=== PATIENT | female | born 1950 | race Caucasian/White ===

== ENCOUNTER 2020-06-13 11:47 | Outpatient (REF) | payer BC, SELFPAY ==
[2020-06-13 13:42] LABS: Basophils Percent Auto 0.2 % (0-2); Eosinophils Absolute Auto 0.1 X10*3/uL (0.0-0.4); Eosinophils Percent Auto 1.7 % (0-4); Hematocrit 31.2 % (37-47); Hemoglobin 10.2 g/dl (12.0-16.0); Imm Gran Abs Auto 0.01 X10*3/uL (0.00-0.03); Imm Gran Pct Auto 0.2 % (0.0-0.4); Lymphocytes Absolute Auto 1.1 X10*3/uL (1.2-4.9); Lymphocytes Percent Auto 22.1 % (20-40); MANUAL DIFF FLAG NO; Mean Corpuscular HGB Conc 32.7 g/dl (31.0-35.0); Mean Corpuscular Hemoglobin 32.7 pg (27.0-33.0); Mean Platelet Volume 9.7 fL (9.4-12.3); Monocytes Absolute Auto 0.4 X10*3/uL (0.1-1.2); Monocytes Percent Auto 8.3 % (2-11); Neutrophils Absolute Auto 3.5 X10*3/uL (2.0-8.3); Neutrophils Percent Auto 67.5 % (45-73); Platelet Count 261 X10*3/uL (160-400); Red Blood Count 3.12 X10*6/uL (4.20-5.50); White Blood Count 5.2 X10*3/uL (4.8-10.8)
[2020-06-13 14:51] LABS: Alanine Aminotransferase 8 U/L (0-31); Albumin Level 4.3 g/dL (3.5-5.0); Alkaline Phosphatase 100 U/L (39-117); Anion Gap 16 (12-20); Aspartate Amino Transferase 15 U/L (5-31); Bilirubin Total 0.4 mg/dL (0.0-1.0); Blood Urea Nitrogen 33 mg/dL (9-16); Calcium 9.5 mg/dL (8.4-10.2); Carbon Dioxide 28 mmol/L (22-29); Chloride 100 mmol/L (96-108); Estimated Glomerular Filt Rate 37; Glucose Random 103 mg/dL (60-115); Potassium 4.6 mmol/l (3.3-5.1); Sodium 139 mmol/L (135-145)
== END 2020-06-13 11:48 | disposition home or self-care (01) ==
LOC: HO.LAB 11:47
PROVIDERS: PCP Family Medicine; Visit Provider Family Medicine
DX: R53.83 Other fatigue (principal)
CPT/HCPCS: 36415; 80053; 85025

== ENCOUNTER 2020-07-04 10:10 | Outpatient (REF) | payer BC, SELFPAY | END 2020-07-04 10:11 | disposition home or self-care (01) | LOC: HO.LAB 10:10 | PROVIDERS: Visit Provider Nurse Practitioner Family | DX: Z13.89 Encounter for screening for other disorder (principal) ==

== ENCOUNTER 2020-07-04 11:44 | Outpatient (REF) | payer SELFPAY | END 2020-07-04 11:45 | disposition home or self-care (01) | LOC: HO.LNP 11:44 | PROVIDERS: Visit Provider Nurse Practitioner Family | DX: S81.802A Unspecified open wound, left lower leg, initial encounter (principal) | CPT/HCPCS: 87071; 87205 ==

== ENCOUNTER 2020-07-07 09:08 | Outpatient (RCR) | payer BC, SELFPAY | END 2020-09-06 12:09 | disposition home or self-care (01) | LOC: HO.WCC 09:08 | PROVIDERS: PCP Family Medicine; Visit Provider Physician Assistant | DX: Z09 Encounter for follow-up examination after completed treatment for conditions other than malignant neoplasm (principal); I87.2 Venous insufficiency (chronic) (peripheral); R60.0 Localized edema; I12.9 Hypertensive chronic kidney disease with stage 1 through stage 4 chronic kidney disease, or unspecified chronic kidney disease; N18.30 Chronic kidney disease, stage 3 unspecified; Z87.891 Personal history of nicotine dependence; Z91.81 History of falling | CPT/HCPCS: 11042; 99212 ==

== ENCOUNTER 2020-09-19 13:33 | Outpatient (REF) | payer BC, SELFPAY | END 2020-09-19 13:34 | disposition home or self-care (01) | LOC: HO.LAB 13:33 | PROVIDERS: Visit Provider Internal Medicine | DX: Z20.822 Contact with and (suspected) exposure to COVID-19 (principal) | CPT/HCPCS: 36415; C9803; U0003 ==

== ENCOUNTER 2020-11-30 13:39 | Inpatient (IN) | payer BC, SELFPAY ==
--- NOTE | ~2020-11-30 | CT_ITS ---
EXAMINATION: CT ANGIOGRAM OF THE CHEST WITH AND WITHOUT CONTRAST (CT PULMONARY ANGIOGRAM FOR PE) EXAMINATION: CTA CHEST PE STUDY CLINICAL INFORMATION: sob, cp, elevatedd dimer, eval for pe COMPARISON: No pertinent prior studies are available for comparison. TECHNIQUE: Prior to contrast administration, noncontrast localization images were obtained. After the administration of 70 mL of Omnipaque 350 IV contrast, contiguous thin slice helical images were obtained through the thorax. Reformatted MIP images in the coronal and sagittal planes were obtained at the acquisition workstation. This CT examination was performed using dose optimization techniques as appropriate, variously including the following: *Automated exposure control *Adjustment of mA and/or kV according to patient size (this includes techniques or standardized protocols for targeted exams where dose is matched to indication/reason for exam; i.e. extremities or head) *Use of iterative reconstruction technique DLP: 487 mGy-cm. FINDINGS: The bolus timing on this study was acceptable for visualization of the pulmonary arterial tree. There are no intraluminal pulmonary arterial filling defects present to suggest pulmonary embolism. Minimal bibasilar dependent atelectasis.. No abnormal pulmonary nodules or masses are appreciated. No significant hilar or mediastinal adenopathy. There is no evidence of pleural effusion or pneumothorax. The heart is normal in size. No evidence of ventricular septal bowing or right heart strain. Great vessels are normal. Moderate-sized hiatal hernia. There is no pericardial effusion or pericardial thickening. Limited evaluation of the upper abdominal viscera is unremarkable. CT/CT angio chest PE protocol IMPRESSION: No evidence for pulmonary emboli. Mild basilar atelectasis VTE: Negative
--- NOTE | ~2020-11-30 | XR_ITS ---
EXAMINATION: CHEST 2 VIEWS CLINICAL INFORMATION: cp . COMPARISON: 05/08/2020. TECHNIQUE: PA and lateral views of the chest obtained. FINDINGS: The lungs are mild hypoexpanded with minimal basilar scarring or atelectasis, similar to the prior study. No focal infiltrate, effusion, edema, or pneumothorax. Cardiac and mediastinal silhouettes are within normal limits for size. Small hiatal hernia is present. No acute bony abnormality seen with mild degenerative changes in the shoulders and spine XR/XR chest 2V IMPRESSION: No evidence of acute disease compared with 05/08/2020
--- NOTE | 2020-11-30 09:03 | ECG_ITS ---
Test Reason : CP Blood Pressure : / mmHG Vent. Rate : 072 BPM Atrial Rate : 072 BPM P-R Int : 166 ms QRS Dur : 100 ms QT Int : 424 ms P-R-T Axes : 037 -05 010 degrees QTc Int : 464 ms Normal sinus rhythm Normal ECG When compared with ECG of 30-NOV-2020 17:54, No significant change was found Referred By: Stephen Dodson Electronically Signed By:BREA NGUYEN
[2020-11-30 13:42] VITALS: BP 140/82; PULSE 88; RESP 16; TEMP 36.9; O2SAT 98; BMI 36.0
--- NOTE | 2020-11-30 13:53 | ECG_ITS ---
Test Reason : CHEST PAIN Blood Pressure : / mmHG Vent. Rate : 083 BPM Atrial Rate : 083 BPM P-R Int : 160 ms QRS Dur : 094 ms QT Int : 382 ms P-R-T Axes : 000 193 177 degrees QTc Int : 448 ms Normal sinus rhythm Right superior axis deviation Pulmonary disease pattern Nonspecific ST and T wave abnormality Abnormal ECG No previous ECGs available Referred By: Stephen Dodson Electronically Signed By:BREA NGUYEN
[2020-11-30 14:54] LABS: MANUAL DIFF FLAG NO
[2020-11-30 14:55] LABS: Basophils Percent Auto 0.4 % (0-2); Eosinophils Absolute Auto 0.1 X10*3/uL (0.0-0.4); Eosinophils Percent Auto 0.7 % (0-4); Hematocrit 29.5 % (37-47); Hemoglobin 9.6 g/dl (12.0-16.0); Imm Gran Abs Auto 0.03 X10*3/uL (0.00-0.03); Imm Gran Pct Auto 0.4 % (0.0-0.4); Lymphocytes Absolute Auto 1.1 X10*3/uL (1.2-4.9); Lymphocytes Percent Auto 16.6 % (20-40); Mean Corpuscular HGB Conc 32.5 g/dl (31.0-35.0); Mean Corpuscular Hemoglobin 28.7 pg (27.0-33.0); Mean Corpuscular Volume 88.3 fL (80-98); Mean Platelet Volume 9.7 fL (9.4-12.3); Monocytes Absolute Auto 0.9 X10*3/uL (0.1-1.2); Monocytes Percent Auto 13.3 % (2-11); Neutrophils Absolute Auto 4.6 X10*3/uL (2.0-8.3); Neutrophils Percent Auto 68.6 % (45-73); Platelet Count 199 X10*3/uL (160-400); Red Blood Count 3.34 X10*6/uL (4.20-5.50); Red Cell Distribution Width 15.5 % (11.0-16.0); White Blood Count 6.7 X10*3/uL (4.8-10.8)
[2020-11-30 15:09] LABS: INTERNATIONAL NORM RATIO 1.2 (0.9-1.1)
[2020-11-30 15:22] LABS: Anion Gap 12 (12-20); Blood Urea Nitrogen 31 mg/dL (9-16); Calcium 6.9 mg/dL (8.4-10.2); Carbon Dioxide 36 mmol/L (22-29); Chloride 99 mmol/L (96-108); Creatinine Clr Calc Pharmacy 54.2; Estimated Glomerular Filt Rate 49; Glucose Random 149 mg/dL (60-115); Potassium 3.4 mmol/L (3.3-5.1); Sodium 144 mmol/L (135-145)
[2020-11-30 15:25] LABS: B Type Natriuretic Peptide 257 pg/mL (<100); Troponin-I High Sensitivity 5.9 ng/L (<3.5-17.0)
--- NOTE | 2020-11-30 17:32 | ED_ITS ---
HPI - Chest Pain General Chief Complaint: Chest Pain Stated Complaint: chest pain Time Seen by Provider: 11/30/20 14:20 Source: patient Mode of arrival: ambulatory Limitations: no limitations History of Present Illness HPI narrative: 70-year-old female with a past medical history of arthritis, asthma, CKD, COPD, gout, high cholesterol, hypertension here with complaints chest pain which began at 04:00 this morning. Patient tells me that she has had lower extremity swelling which has increased over the last few days. She took an extra dose of 40 mg of Lasix on Friday and has lost 9 lb since then. She feels like her swelling has improved. She has had some dyspnea with exertion and a dry cough which she tells me is chronic. Denies any fevers or chills. This morning at 04:00 she woke up with some chest pressure which is sharp and is worsened with deep breathing, movement. No history of blood clots. No family history. No estrogen use. MD complaint: chest pain and chest heaviness Related Data Home Medications Medication Instructions Recorded Confirmed acetaminophen 500 mg tablet 1,000 mg PO Q8H 07/04/20 aspirin 81 mg tablet,delayed 81 mg PO DAILY 07/04/20 release atorvastatin 40 mg tablet mg PO 07/04/20 carvedilol 25 mg tablet 25 mg PO BID 07/04/20 carvedilol phosphate 20 mg 0 mg PO 07/04/20 capsule,[id number] multiphase clonidine HCl 0.1 mg tablet mg PO 07/04/20 ergocalciferol (vitamin D2) 1,250 PO 07/04/20 mcg (50,000 unit) capsule fluticasone 250 mcg-salmeterol 50 INHALATION 07/04/20 mcg/dose blistr powdr for inhalation furosemide 20 mg tablet mg PO 07/04/20 gabapentin 300 mg capsule mg PO 07/04/20 gabapentin 600 mg tablet 600 mg PO BEDTIME 07/04/20 lorazepam 0.5 mg tablet 0.5 mg PO BID PRN 07/04/20 losartan 50 mg tablet 50 mg PO DAILY 07/04/20 pantoprazole 40 mg tablet,delayed 40 mg PO DAILY 07/04/20 release sennosides 8.6 mg-docusate sodium 2 tab PO BEDTIME 07/04/20 50 mg tablet sulfamethoxazole 800 1 tab PO BID 07/04/20 mg-trimethoprim 160 mg tablet Previous Rx's Medication Instructions Recorded doxycycline hyclate 100 mg capsule 100 mg PO BID 10 Days #20 cap 07/04/20 amoxicillin 500 mg-potassium 1 tab PO BID 10 Days #20 tab 09/27/20 clavulanate 125 mg tablet Allergies Allergy/AdvReac Type Severity Reaction Status Date / Time levofloxacin [From Levaquin] Allergy Unknown Verified 11/30/20 13:53 paroxetine [From Paxil] Allergy Unknown Verified 11/30/20 13:53 prochlorperazine Allergy Unknown Verified 11/30/20 13:53 [From Compazine] shrimp Allergy Anaphylaxis Verified 11/30/20 13:53 Review of Systems Review of Systems: Yes all other systems are reviewed and are negative Constitutional: Constitutional: Reports no additional constitutional complaints, Denies body ache(s), Denies chills, Denies fever(s), Denies headache(s) and Denies weakness Eyes: Eyes: Reports no additional eye complaints and Denies change in vision ENT: Reports system reviewed and no additional complaints, except as documented, Denies dizziness, Denies headache(s), Denies nasal congestion, Denies nasal discharge and Denies neck pain Cardiovascular: Cardiovascular: Reports no additional cardiovascular complaints, Reports chest pain, Reports leg edema and Denies dyspnea Respiratory: Respiratory: Reports no additional respiratory complaints, Denies cough and Denies dyspnea Gastrointestinal: Gastrointestinal: Reports no additional gastrointestinal complaints, Denies abdominal pain, Denies diarrhea, Denies nausea and Denies vomiting Genitourinary: Genitourinary: Reports no additional female genitourinary complaints and Denies urinary incontinence Musculoskeletal: Musculoskeletal: Reports no additional musculoskeletal complaints, Denies back pain, Denies arthralgias, Denies joint swelling, Denies neck pain, Denies numbness and Denies tingling Integumentary/Breasts: Skin/Breast: Reports system reviewed and no additional complaints, except as docu and Denies rash Neurologic: Reports system reviewed and no additional complaints, except as documented, Denies Abnormal speech present, Denies dizziness, Denies headache(s), Denies numbness, Denies tingling and Denies weakness PMFSH Past Medical History Attestation statement: The following information was validated with the patient. Source: old records reviewed and nursing notes reviewed Medical History Arthritis Asthma Chronic kidney disease (CKD) stage G3a/A1, moderately decreased glomerular filtration rate (GFR) between 45-59 mL/min/1.73 square meter and albuminuria creatinine ratio less than 30 mg/g COPD (chronic obstructive pulmonary disease) Gout Hypercholesteremia Hypertension Inguinal hernia Sliding hiatal hernia Social History Social History Advance Directives: No Advance Directives Information Provided: Yes Physical Exam Vital Signs: Vital Signs: Last Vital Signs Temp 98.4 F 11/30/20 13:42 Pulse 80 11/30/20 21:56 Resp 20 11/30/20 21:56 BP 150/96 H 11/30/20 21:56 Pulse Ox 97 11/30/20 21:56 Body Mass Index 36.0 Const: General: cooperative, healthy appearing, comfortable and no acute distress Orientation/consciousness: patient oriented x3 Limitations: no limitations HENMT: Head: Yes normal to inspection Ears: hearing grossly normal bilaterally General nose exam: Normal external nose present Face and sinu s: Yes normal facial exam Mouth: Normal oral and palatal mucosa present Throat: Yes posterior oropharynx normal Eyes: General: appearance normal, both eyes and all related structures Pupils: Equal, round and reactive pupils present Neck: Neck: Yes normal visual inspection Chest: Chest palpation & inspection: normal inspection of the chest Resp: Effort & Inspection: normal respiratory effort Auscultation: clear to auscultation bilaterally Cardio: Rate: regular rate Rhythm: regular rhythm Peripheral pulses: Peripheral pulses 2+ throughout GI: Inspection: Yes normal to inspection Palpation (GI): Soft to palpation and nontender Auscultation: normal bowel sounds Back/Spine/Pelvis: Thoracic/Lumbar Spine: thoracic and lumbar spine normal to inspection Skin: General skin exam: no rashes or lesions noted Neuro: General: patient oriented x3, no focal motor deficits and normal sensation to monofilament Cranial nerves: Yes Equal, round and reactive pupils present Cognition (Neuro): normal cognition Speech: No Abnormal speech present Gait exam (Neuro): Normal gait present Motor exam (neuro): 5/5 motor strength present throughout Extrem: General: Yes normal to inspection, Yes no calf tenderness and Yes edema (2+ pitting edema extending over the ankles, 2+ pulses) Course Course Course Narrative: 70-year-old female here with lower extremity swelling for the past few days with weight gain and chest pressure which is worsened with deep breathing which began at 04:00. Will need labs, EKG, chest x-ray. 1830-initial troponin 5.9. Plan for repeat 3 hour troponin. Magnesium less pedro n 0.6. Replacement ordered. Patient to be placed on a library monitor. D- dimer elevated 900. Plan for CTA to r/o PE 0-CTA negative. Second troponin delta. Patient tells me she may have this strained her chest wall during an over the head activity that she did earlier this week but she is unsure. Will plan for repeat magnesium level. 2300-repeat mg 1.1. Will plan for admission for continued IV replacement. Discussed with hospitalist Dr. Cueto who accepted admission. MDM - Chest Pain MDM Narrative Medical decision making narrative: ACS, PE, pneumonia Less likely PE with negative CTA. Less likely ACS with troponin x2 Delta and EKG cereal which shows no eczema changes Medical Records Data Attestation: I reviewed the patient's medical records. Lab Data Attestation: I reviewed the patient's lab results. Result diagrams: 11/30/20 14:48 11/30/20 14:48 Labs: Lab Results 11/30/20 11/30/20 11/30/20 Range/Units 14:48 14:48 14:48 WBC 6.7 (4.8-10.8) X10*3/uL RBC 3.34 L (4.20-5.50) X10*6/uL Hgb 9.6 L (12.0-16.0) g/dl Hct 29.5 L (37-47) % MCV 88.3 (80-98) fL MCH 28.7 (27.0-33.0) pg MCHC 32.5 (31.0-35.0) g/dl RDW 15.5 (11.0-16.0) % Plt Count 199 (160-400) X10*3/uL MPV 9.7 (9.4-12.3) fL Immature Gran % (Auto) 0.4 (0.0-0.4) % Neut % (Auto) 68.6 (45-73) % Lymph % (Auto) 16.6 L (20-40) % [place] % (Auto) 13.3 H (2-11) % Eos % (Auto) 0.7 (0-4) % Baso % (Auto) 0.4 (0-2) % Lymph # (Auto) 1.1 L (1.2-4.9) X10*3/uL [place] # (Auto) 0.9 (0.1-1.2) X10*3/uL Eos # (Auto) 0.1 (0.0-0.4) X10*3/uL Baso # (Auto) 0.0 (0.0-0.2) X10*3/uL Abs Immat Gran (auto) 0.03 (0.00-0.03) X10*3/uL Absolute Neuts (auto) 4.6 (2.0-8.3) X10*3/uL Absolute Nucleated RBC 0.000 (0.0-0.012) X10*3/uL Nucleated RBC % (auto) 0.0 (0.0-0.2) /100WBC PT 14.0 H (10.8-13.0) SEC INR 1.2 H (0.9-1.1) D-Dimer 893 NG/ML Sodium 144 (135-145) mmol/L Potassium 3.4 (3.3-5.1) mmol/L Chloride 99 (96-108) mmol/L Carbon Dioxide 36 H (22-29) mmol/L Anion Gap 12 (12-20) BUN 31 H (9-16) mg/dL Creatinine 1.11 (0.5-1.4) mg/dL Estim Creat Clear Calc 54.2 Estimated GFR 49 Random Glucose 149 H D (60-115) mg/dL Calcium 6.9 L D (8.4-10.2) mg/dL Magnesium < 0.6 L* (1.6-2.6) mg/dL Total Bilirubin 0.6 (0.0-1.0) mg/dL Direct Bilirubin 0.3 (0.0-0.5) mg/dL AST 29 D (5-31) U/L ALT 15 (0-31) U/L Alkaline Phosphatase 77 D (39-117) U/L Troponin I High Sens (<3.5-17.0) ng/L B-Natriuretic Peptide (<100) pg/mL Total Protein 6.0 L (6.5-8.0) g/dL Albumin 3.4 L D (3.5-5.0) g/dL Lipase 45 (8-78) U/L 11/30/20 11/30/20 11/30/20 Range/Units 14:48 18:30 22:01 WBC (4.8-10.8) X10*3/uL RBC (4.20-5.50) X10*6/uL Hgb (12.0-16.0) g/dl Hct (37-47) % MCV (80-98) fL MCH (27.0-33.0) pg MCHC (31.0-35.0) g/dl RDW (11.0-16.0) % Plt Count (160-400) X10*3/uL MPV (9.4-12.3) fL Immature Gran % (Auto) (0.0-0.4) % Neut % (Auto) (45-73) % Lymph % (Auto) (20-40) % [place] % (Auto) (2-11) % Eos % (Auto) (0-4) % Baso % (Auto) (0-2) % Lymph # (Auto) (1.2-4.9) X10*3/uL [place] # (Auto) (0.1-1.2) X10*3/uL Eos # (Auto) (0.0-0.4) X10*3/uL Baso # (Auto) (0.0-0.2) X10*3/uL Abs Immat Gran (auto) (0.00-0.03) X10*3/uL Absolute Neuts (auto) (2.0-8.3) X10*3/uL Absolute Nucleated RBC (0.0-0.012) X10*3/uL Nucleated RBC % (auto) (0.0-0.2) /100WBC PT (10.8-13.0) SEC INR (0.9-1.1) D-Dimer NG/ML Sodium (135-145) mmol/L Potassium (3.3-5.1) mmol/L Chloride (96-108) mmol/L Carbon Dioxide (22-29) mmol/L Anion Gap (12-20) BUN (9-16) mg/dL Creatinine (0.5-1.4) mg/dL Estim Creat Clear Calc Estimated GFR Random Glucose (60-115) mg/dL Calcium (8.4-10.2) mg/dL Magnesium 1.1 L* (1.6-2.6) mg/dL Total Bilirubin (0.0-1.0) mg/dL Direct Bilirubin (0.0-0.5) mg/dL AST (5-31) U/L ALT (0-31) U/L Alkaline Phosphatase (39-117) U/L Troponin I High Sens 5.9 5.9 (<3.5-17.0) ng/L B-Natriuretic Peptide 257 H (<100) pg/mL Total Protein (6.5-8.0) g/dL Albumin (3.5-5.0) g/dL Lipase (8-78) U/L Imaging Data Chest x-ray: Attestation: I personally reviewed and interpreted this imaging study as follows: Radiologist's impression: EXAMINATION: CHEST 2 VIEWS CLINICAL INFORMATION: cp . COMPARISON: 05/08/2020. TECHNIQUE: PA and lateral views of the chest obtained. FINDINGS: The lungs are mild hypoexpanded with minimal basilar scarring or atelectasis, similar to the prior study. No focal infiltrate, effusion, edema, or pneumothorax. Cardiac and mediastinal silhouettes are within normal limits for size. Small hiatal hernia is present. No acute bony abnormality seen with mild degenerative changes in the shoulders and spine XR/XR chest 2V IMPRESSION: No evidence of acute disease compared with 05/08/2020 CT scan - chest: Attestation: I personally reviewed and interpreted this imaging study as follows: Radiologist's impression: EXAMINATION: CT ANGIOGRAM OF THE CHEST WITH AND WITHOUT CONTRAST (CT PULMONARY ANGIOGRAM FOR PE) EXAMINATION: CTA CHEST PE STUDY CLINICAL INFORMATION: sob, cp, elevatedd dimer, eval for pe COMPARISON: No pertinent prior studies are available for comparison. TECHNIQUE: Prior to contrast administration, noncontrast localization images were obtained. After the administration of 70 mL of Omnipaque 350 IV contrast, contiguous thin slice helical images were obtained through the thorax. Reformatted MIP images in the coronal and sagittal planes were obtained at the acquisition workstation. This CT examination was performed using dose optimization techniques as appropriate, variously including the following: *Automated exposure control *Adjustment of mA and/or kV according to patient size (this includes techniques or standardized protocols for targeted exams where dose is matched to indication/reason for exam; i.e. extremities or head) *Use of iterative reconstruction technique DLP: 487 mGy-cm. FINDINGS: The bolus timing on this study was acceptable for visualization of the pulmonary arterial tree. There are no intraluminal pulmonary arterial filling defects present to suggest pulmonary embolism. Minimal bibasilar dependent atelectasis.. No abnormal pulmonary nodules or masses are appreciated. No significant hilar or mediastinal adenopathy. There is no evidence of pleural effusion or pneumothorax. The heart is normal in size. No evidence of ventricular septal bowing or right heart strain. Great vessels are normal. Moderate-sized hiatal hernia. There is no pericardial effusion or pericardial thickening. Limited evaluation of the upper abdominal viscera is unremarkable. CT/CT angio chest PE protocol IMPRESSION: No evidence for pulmonary emboli. Mild basilar atelectasis VTE: Negative ECG Data ECG #1: Attestation: I personally reviewed and interpreted this ECG as follows: ECG interpretation date: 11/30/20 ECG interpretation time: 17:54 Interpretation: Normal sinus rhythm with a rate of 80, normal MO, normal QRS, QTC 468. ECG #2: Attestation: I personally reviewed and interpreted this ECG as follows: ECG interpretation date: 11/30/20 ECG interpretation time: 14:33 Interpretation: Normal sinus rhythm with a rate of 82, normal MO, normal QRS, normal QTC nonspecific ST changes Discharge Plan Discharge Clinical Impression: Atypical chest pain, Hypomagnesemia, Elevated brain natriuretic peptide (BNP) level, Swelling of both lower extremities Patient Disposition: Admitted As Inpatient
[2020-11-30 17:34] LABS: D Dimer 893 NG/ML
--- NOTE | 2020-11-30 17:40 | ECG_ITS ---
Test Reason : REPEAT Blood Pressure : / mmHG Vent. Rate : 080 BPM Atrial Rate : 080 BPM P-R Int : 154 ms QRS Dur : 100 ms QT Int : 406 ms P-R-T Axes : 041 000 015 degrees QTc Int : 468 ms Normal sinus rhythm Normal ECG When compared with ECG of 30-NOV-2020 14:33, No significant change was found Referred By: Stephen Dodson Electronically Signed By:BREA NGUYEN
[2020-11-30 17:43] LABS: Alanine Aminotransferase 15 U/L (0-31); Albumin Level 3.4 g/dL (3.5-5.0); Alkaline Phosphatase 77 U/L (39-117); Aspartate Amino Transferase 29 U/L (5-31); Bilirubin Direct 0.3 mg/dL (0.0-0.5); Bilirubin Total 0.6 mg/dL (0.0-1.0); Lipase 45 U/L (8-78)
[2020-11-30 18:14] LABS: Magnesium < 0.6 mg/dL (1.6-2.6)
[2020-11-30] MEDS: Aspirin 81 MG TAB.CHEW 324 MG PO (18:37)
[2020-11-30] MEDS: Magnesium Sulfate/H2O 2 GM/50 ML PIGGYBACK IV (18:38)
[2020-11-30] MEDS: 0.9 % Sodium Chloride 500 ML 999 ML IV (18:38)
[2020-11-30 19:03] LABS: Troponin-I High Sensitivity 5.9 ng/L (<3.5-17.0)
[2020-11-30 19:42] VITALS: BP 145/61; PULSE 77; RESP 18; O2SAT 98
[2020-11-30 20:23] VITALS: BP 152/77; PULSE 79; RESP 20; O2SAT 100
[2020-11-30] MEDS: iohexoL 350 MG/ML 100 ML INFUS..BTL IV (20:24)
[2020-11-30 21:56] VITALS: BP 150/96; PULSE 80; RESP 20; O2SAT 97
[2020-11-30 22:43] LABS: Magnesium 1.1 mg/dL (1.6-2.6)
[2020-12-01] VITALS (8 sets, daily range): BP systolic 118–148; BP diastolic 63–94; PULSE 71–81; RESP 15–20; TEMP 35.5–37.2; O2SAT 20–98
[2020-12-01] MEDS: oxyCODONE HCl Immed Release 5 MG TABLET PO ×2 (00:10→08:31)
[2020-12-01] MEDS: Furosemide 40 MG/4 ML VIAL IVPUSH ×3 (00:11→17:40)
--- NOTE | 2020-12-01 01:39 | CA_ITS ---
Transthoracic Echocardiogram Patient (Last, First, Middle): Binta Vidal Elena F Gender: Female Date of : 1950 Age: 70 Procedure Date: 12/01/2020 Procedure Type: Transthoracic Echocardiogram [place] [facility] [place]: 162.56 cm Weight: 95.26 kg BSA: 2.00 m2 Heart Rate: bpm BP: 141 / 68 mmHg [facility]: DONY Referring MD: Leanne Cueto MD Symptoms: CHF Study Quality: Fair/contrast ECG Rhythm: Sinus Conclusions: - The left ventricular systolic function is normal. The visually estimated ejection fraction is between 55-60%. - Evidence suggests grade II (moderate) diastolic dysfunction. - No obvious valvular pathology seen on this study. Findings Procedure Information Contrast agent, definity, is being given per protocol without apparent complications. Left Ventricle Normal left ventricular cavity size. There is mildly increased left ventricular wall thickness. The left ventricular systolic function is normal. The visually estimated ejection fraction is between 55-60%. There is no evidence of regional wall motion abnormalities. Evidence suggests grade II (moderate) diastolic dysfunction. Right Ventricle Normal right ventricular cavity size and systolic function. Atria The left atrium is mildly dilated. The right atrium is normal in size. Aortic Valve There is a normal trileaflet aortic valve. There is no aortic valve stenosis. There is no aortic valve regurgitation. Mitral Valve The mitral valve appears normal. There is trace mitral valve regurgitation. There is no mitral valve stenosis. Pulmonic Valve The pulmonic valve was not well visualized. Tricuspid Valve Normal tricuspid valve structure. There is trace tricuspid valve regurgitation. The pulmonary artery systolic pressure is normal. Great Vessels The aortic annulus, sinuses of valsalva, and asc aorta are normal in size. Venous The inferior vena cava is normal in size and collapses greater than 50% with inspiration. Pericardium/Pleural There is no evidence of pericardial effusion. Prior Study Comparison No significant change compared to prior study dated: 07/15/2015. Recommendations, Care & Conclusions No obvious valvular pathology seen on this study. Measurements 2D Linear Measurements IVSd: 1.07 0.6-0.9/0.6-1.0 cm LVIDd: 4.02 3.9-5.3/4.2-5.9 cm LVIDd Index: 2.01 2.4-3.2/2.2-3.1 cm/m2 LVIDs: 2.81 2.0-3.6 cm LVPWd: 1.10 0.7-1.1 cm Ao Root: 3.30 2.1-3.5 cm LA Diam: 2.30 2.7-3.8/3.0-4.0 cm LAIDs Index: 1.15 1.5-2.3 cm/m2 LV Mass: 179.10 67-162/88-224 g LV Mass Index: 89.55 43-95/49-115 g/m2 LVOT Diam: 2.20 3.0+(-)1.3 cm 2D Systolic Function EF 4C: 61.20 >55% EF 2C: 59.00 >55% EF BiP: 59.50 >55% Mitral Valve MV Pk E: 1.31 MV PK A: 0.78 MV Decel Time: 243.00 E/A: 1.70 E'Lateral: 10.20 E'Medial: 6.38 E/E' Med: 20.50 E/E' Lat: 12.80 PHT: 71.00 MVA PHT: 3.10 Decel Jackson: 5.39 Aortic Valve AoV Pk Sergo: 1.81 AoV Mn Sergo: 1.31 AoV VTI: 0.43 AoV Pk Grad: 13.00 Aov Mn Grad: 8.00 PRASHANTH Cont.VTI: 2.47 LVOT LVOT Pk Sergo: 1.30 LVOT Mn Sergo: 0.86 LVOT VTI: 0.28 LVOT Pk Grad: 7.00 LVOT Mn Grad: 4.00 LVOT Diam: 2.20 LVOT Area: 3.80 Diastolic Function MV Pk E: 1.31 MV Pk A: 0.78 E/A: 1.70 E'Medial: 6.38 E/E' Med: 20.50 E' Laterial: 10.20 E/E' Lat: 12.80 Tricuspid Valve TR Pk Sergo: 2.52 TR Pk Grad: 25.00 RA Press: 3.00 RVSP: 28.00 Great Vessels Aorta Ao Root-2D: 3.30 2.0-3.7 cm Ao Asc: 3.70 2.1-3.4 cm Updated in Other Vendor System with Status of Final Roldan Cazares MD electronically signed on 12/01/2020 2:41:46 PM with status of Final
[2020-12-01] MEDS: Magnesium Sulfate/H2O 2 GM/50 ML PIGGYBACK IV (02:11)
[2020-12-01 03:08] LABS: COVID-19 Test Negative (Negative)
--- NOTE | 2020-12-01 05:12 | PM.IMHP ---
History of Present Illness Date of Service: 11/30/20 Chief Complaint: Chest pain This is a 62-year-old female with past medical history of asthma, CKD, HLD, HTN, who presents to the hospital with complaints of left-sided chest pain. Patient reports that it started at 4:00 a.m. the day of presentation, pain is a sharp, worse with deep inspiration, constant, reproducible, nonradiating, not associated with any palpitations, she also complains of shortness of breath on exertion, lower extremity edema for the past 3-4 days, denies any cough, no sputum production, no abdominal pain nausea or vomiting, no diarrhea constipation, no urinary symptoms. No headache or change in vision. Patient complains of orthopnea, and PND. On arrival to the ED hemodynamically stable with no No significant abnormal vitals Labs are significant for WBC count of 6.7, hemoglobin of 9.6, PT of 14, INR of 1.2, BUN of 31, creatinine of 1.1, magnesium of 0.6, BNP of 257, albumin of 3.4, CT angiogram revealed no PE, mild basilar atelectasis, Patient will be admitted Past medical history as below lung confirmed with patient Review of Systems Review of Systems: Yes all other systems are reviewed and are negative [facility] Medical History Arthritis Asthma Chronic kidney disease (CKD) stage G3a/A1, moderately decreased glomerular filtration rate (GFR) between 45-59 mL/min/1.73 square meter and albuminuria creatinine ratio less than 30 mg/g COPD (chronic obstructive pulmonary disease) Gout Hypercholesteremia Hypertension Inguinal hernia Sliding hiatal hernia Social History Advance Directives: No Advance Directives Information Provided: Yes Meds Allergies Allergy/AdvReac Type Severity Reaction Status Date / Time levofloxacin [From Levaquin] Allergy Unknown Verified 11/30/20 13:53 paroxetine [From Paxil] Allergy Unknown Verified 11/30/20 13:53 prochlorperazine Allergy Unknown Verified 11/30/20 13:53 [From Compazine] shrimp Allergy Anaphylaxis Verified 11/30/20 13:53 Active Medications: Current Medications Generic Name Dose Route Start Last Admin Trade Name Freq PRN Reason Stop Dose Admin Acetaminophen 650 mg 12/01/20 01:39 Acetaminophen 325 Mg Tablet PO Q6H PRN Pain, Mild (Pain Scale 1-3) Docusate Sodium 100 mg 12/01/20 01:39 Docusate Sodium 100 Mg Capsule PO DAILY PRN Constipation Enoxaparin Sodium 40 mg 12/01/20 06:00 Enoxaparin Sodium 40 Mg/0.4 Ml Syringe SUBCUT Q24H [facility] Furosemide 40 mg 12/01/20 09:00 Furosemide 40 Mg/4 Ml Vial IVPUSH BID@0900,1800 [facility] Protocol Ondansetron HCl 4 mg 12/01/20 01:39 Ondansetron Hcl 4 Mg/2 Ml Vial IVPUSH Q8H PRN Nausea and Vomiting Oxycodone HCl 5 mg 11/30/20 23:54 12/01/20 00:10 Oxycodone Hcl Immed Release 5 Mg Tablet PO 5 mg Q6H PRN Administration Pain, Severe (Pain Scale 7-10) Pharmacy Consult 1 each 11/30/20 22:49 Consult Rx Perform Med Rec MISCELLANE ONCE PRN Consult order Sodium Chloride 3 ml 12/01/20 01:39 12/01/20 02:10 0.9 % Sodium Chloride Flush 3 Ml Syringe IVFLUSH Not Given QSHIFT [facility] Home Medications Medication Instructions Recorded Confirmed Last Taken Type acetaminophen 500 mg tablet 1,000 mg PO Q8H 07/04/20 12/01/20 Unknown History atorvastatin 40 mg tablet 40 mg PO DAILY 07/04/20 12/01/20 Unknown History carvedilol 25 mg tablet 25 mg PO BID 07/04/20 12/01/20 Unknown History clonidine HCl 0.1 mg tablet 0.1 mg PO BID 07/04/20 12/01/20 Unknown History lorazepam 0.5 mg tablet 0.5 mg PO QPM 07/04/20 12/01/20 Unknown History losartan 50 mg tablet 50 mg PO DAILY 07/04/20 12/01/20 Unknown History pantoprazole 40 mg tablet,delayed 40 mg PO DAILY 07/04/20 12/01/20 Unknown History release Advair HFA 2 inh PO DAILY 12/01/20 12/01/20 Unknown History albuterol 90 mcg INHALATION Q4-6H PRN 12/01/20 12/01/20 Unknown History ergocalciferol (vitamin D2) 1 cap PO QWEEK 12/01/20 12/01/20 Unknown History fluticasone propion-salmeterol 2 inh INHALATION BID 12/01/20 12/01/20 Unknown History [Wixela Inhub] fluticasone propionate [Flonase] 2 spray INTRANASAL DAILY 12/01/20 12/01/20 Unknown History Physical Exam Vital Signs and Narrative: Vital Signs: Last Vital Signs Temp 98.4 F 11/30/20 13:42 Pulse 81 12/01/20 02:00 Resp 15 12/01/20 02:00 BP 141/68 H 12/01/20 02:00 Pulse Ox 98 12/01/20 02:00 Body Mass Index 36.0 Const: General: cooperative and no acute distress Orientation/consciousness: patient oriented x3 Eyes: General: appearance normal, both eyes and all related structures Chest: Other: Reproducible chest tenderness on the left Resp: Effort & Inspection: normal respiratory effort and able to speak in complete sentences Cardio: Rate: regular rate Rhythm: regular rhythm GI: Palpation (GI): Soft to palpation Auscultation: normal bowel sounds Skin: General skin exam: no rashes or lesions noted Neuro: General: patient oriented x3 Cognition (Neuro): normal cognition Extrem: Other: 2+ pitting edema all the way to the prakash bilaterally Erythema bilaterally Results Labs CBC and Chem 7: 11/30/20 14:48 11/30/20 14:48 Labs: Laboratory Results - last 24 hr 11/30/20 11/30/20 11/30/20 14:48 14:48 14:48 MCV 88.3 MCH 28.7 MCHC 32.5 RDW 15.5 Plt Count 199 MPV 9.7 Immature Gran % (Auto) 0.4 Neut % (Auto) 68.6 Lymph % (Auto) 16.6 L [place] % (Auto) 13.3 H Eos % (Auto) 0.7 Baso % (Auto) 0.4 Lymph # (Auto) 1.1 L [place] # (Auto) 0.9 Eos # (Auto) 0.1 Baso # (Auto) 0.0 Abs Immat Gran (auto) 0.03 Absolute Neuts (auto) 4.6 Absolute Nucleated RBC 0.000 Nucleated RBC % (auto) 0.0 PT 14.0 H INR 1.2 H D-Dimer 893 Anion Gap 12 Estim Creat Clear Calc 54.2 Estimated GFR 49 Random Glucose 149 H D Calcium 6.9 L D Magnesium < 0.6 L* Total Bilirubin 0.6 Direct Bilirubin 0.3 AST 29 D ALT 15 Alkaline Phosphatase 77 D Troponin I High Sens B-Natriuretic Peptide Total Protein 6.0 L Albumin 3.4 L D Lipase 45 COVID-19 ([facility]) COVID-19 [facility] 11/30/20 11/30/20 11/30/20 14:48 18:30 22:01 MCV MCH MCHC RDW Plt Count MPV Immature Gran % (Auto) Neut % (Auto) Lymph % (Auto) [place] % (Auto) Eos % (Auto) Baso % (Auto) Lymph # (Auto) [place] # (Auto) Eos # (Auto) Baso # (Auto) Abs Immat Gran (auto) Absolute Neuts (auto) Absolute Nucleated RBC Nucleated RBC % (auto) PT INR D-Dimer Anion Gap Estim Creat Clear Calc Estimated GFR Random Glucose Calcium Magnesium 1.1 L* Total Bilirubin Direct Bilirubin AST ALT Alkaline Phosphatase Troponin I High Sens 5.9 5.9 B-Natriuretic Peptide 257 H Total Protein Albumin Lipase COVID-19 ([facility]) COVID-19 [facility] 12/01/20 02:47 MCV MCH MCHC RDW Plt Count MPV Immature Gran % (Auto) Neut % (Auto) Lymph % (Auto) [place] % (Auto) Eos % (Auto) Baso % (Auto) Lymph # (Auto) [place] # (Auto) Eos # (Auto) Baso # (Auto) Abs Immat Gran (auto) Absolute Neuts (auto) Absolute Nucleated RBC Nucleated RBC % (auto) PT INR D-Dimer Anion Gap Estim Creat Clear Calc Estimated GFR Random Glucose Calcium Magnesium Total Bilirubin Direct Bilirubin AST ALT Alkaline Phosphatase Troponin I High Sens B-Natriuretic Peptide Total Protein Albumin Lipase COVID-19 ([facility]) Negative COVID-[facility] See Note Imaging Radiologist's Impressions: Impressions Chest X-Ray 11/30/20 17:17 IMPRESSION: No evidence of acute disease compared with 05/08/2020 Chest CTA 11/30/20 18:04 IMPRESSION: No evidence for pulmonary emboli. Mild basilar atelectasis VTE: Negative Assessment and Plan (1) Atypical chest pain: Status: Acute (2) Hypomagnesemia: Status: Acute (3) Elevated brain natriuretic peptide (BNP) level: Status: Acute (4) Swelling of both lower extremities: Status: Acute This is a 70-year-old female with past medical history of HTN, HLD, CKD, Asthma Arthritis presents to the hospital with complaints of left-sided chest pain as well as lower extremity edema and dyspnea on exertion # atypical chest pain - unlikely to be cardiogenic, as pain is reproducible, sharp, not cardiac at all - tropes negative, EKG shows no changes suggestive of ACS - most likely musculoskeletal - pain management with Tylenol # lower extremity edema, dyspnea on exertion, elevated BNP - most likely secondary to CHF - patient denies history of CHF although uses Lasix 40 mg daily - will obtain echocardiogram - start her on Lasix 40 IV b.i.d. - cardiology consult - strict I&O, daily weight, low-sodium diet # hypomagnesemia - unclear etiology - repleted - follow Mag level # HTN - stable - continue home regimen # asthma - no exacerbation - continue home inhalers DVT prophylaxis: Lovenox
[2020-12-01 06:24] LABS: MANUAL DIFF FLAG NO
[2020-12-01 06:42] LABS: Basophils Percent Auto 0.3 % (0-2); Eosinophils Absolute Auto 0.1 X10*3/uL (0.0-0.4); Hematocrit 29.5 % (37-47); Hemoglobin 9.5 g/dl (12.0-16.0); Imm Gran Abs Auto 0.03 X10*3/uL (0.00-0.03); Imm Gran Pct Auto 0.5 % (0.0-0.4); Lymphocytes Absolute Auto 1.6 X10*3/uL (1.2-4.9); Lymphocytes Percent Auto 25.8 % (20-40); Mean Corpuscular HGB Conc 32.2 g/dl (31.0-35.0); Mean Corpuscular Hemoglobin 28.5 pg (27.0-33.0); Mean Corpuscular Volume 88.6 fL (80-98); Mean Platelet Volume 10.4 fL (9.4-12.3); Monocytes Absolute Auto 0.9 X10*3/uL (0.1-1.2); Monocytes Percent Auto 14.1 % (2-11); Neutrophils Absolute Auto 3.5 X10*3/uL (2.0-8.3); Neutrophils Percent Auto 58.3 % (45-73); Platelet Count 210 X10*3/uL (160-400); Red Blood Count 3.33 X10*6/uL (4.20-5.50); Red Cell Distribution Width 15.5 % (11.0-16.0)
[2020-12-01] MEDS: Enoxaparin Sodium 40 MG/0.4 ML SYRINGE SUBCUT (06:53)
[2020-12-01 07:06] LABS: Anion Gap 13 (12-20); Blood Urea Nitrogen 20 mg/dL (9-16); Calcium 7.2 mg/dL (8.4-10.2); Carbon Dioxide 34 mmol/L (22-29); Chloride 96 mmol/L (96-108); Creatinine Clr Calc Pharmacy 69.3; Estimated Glomerular Filt Rate > 60; Glucose Random 88 mg/dL (60-115); Potassium 3.2 mmol/L (3.3-5.1); Sodium 140 mmol/L (135-145)
[2020-12-01 07:09] LABS: Magnesium 1.5 mg/dL (1.6-2.6)
--- NOTE | 2020-12-01 07:48 | PC.NURSE ---
[place] [facility] [place] [facility]
--- NOTE | 2020-12-01 07:57 | PC.NURSE ---
report given to rn on [facility]
[2020-12-01] MEDS: 0.9 % Sodium Chloride Flush 3 ML SYRINGE IVFLUSH ×2 (08:31→15:55)
[2020-12-01] MEDS: Potassium Chloride ER 20 MEQ TAB.ER.PRT 40 MEQ PO (08:37)
[2020-12-01] MEDS: Magnesium Sulfate/D5W 1 GM/100 ML PIGGYBACK IV (08:55)
--- NOTE | 2020-12-01 10:23 | PM.CNCAR ---
History of Present Illness History of Present Illness Date of Service: 12/01/20 Consult reason: chest pain Chief complaint: CHF, HYPOMAG Narrative: This is a cardiology consultation regarding chest pain. Patient does not have any known cardiac problems like coronary disease, myocardial infarction or cardiomyopathy. She states that she sees as there is a family history of cardiac issues. Yesterday, she started noticing some chest discomfort. This was present constantly as a background but then every time she took a breath, she was noticing some short episodes. She has also been having increased swelling of her lower extremities as well as shortness of breath. She was admitted for further evaluation. We have been asked to see her to assist with further care. Review of Systems Review of Systems: Yes all other systems are reviewed and are negative Cardiovascular: Cardiovascular: Reports as per HPI, Reports no additional cardiovascular complaints, Denies acrocyanosis, Denies cool extremities, Denies painful fingertips, Denies chest pain, Denies chest pain at rest, Denies diaphoresis, Denies syncope, Denies irregular heart rhythm, Denies claudication, Reports leg edema, Denies lightheadedness, Denies palpitations and Reports dyspnea Respiratory: Respiratory: Reports dyspnea Neurologic: Denies syncope Endocrine: Endocrine: Denies palpitations REPLACED BY [facility] Past Medical History Medical History (Updated 12/01/20 @ 10:31 by Roldan Cazares MD) Arthritis Asthma Chronic kidney disease (CKD) stage G3a/A1, moderately decreased glomerular filtration rate (GFR) between 45-59 mL/min/1.73 square meter and albuminuria creatinine ratio less than 30 mg/g COPD (chronic obstructive pulmonary disease) Essential hypertension Gout Hypercholesteremia Hypertension Inguinal hernia Sliding hiatal hernia Social History Social History Household Members: Family Household Members Other:: mother Housing: House Do you presently have visiting nurse or other home services: No Smoking Status: Former smoker Smoked in Last 30 Days: No Smoking Quit Date: 20 + years ago Patient Interested in Nicotine Replacement: No Patient Given Instructions on How to Stop Smoking: No Second Hand Smoke Exposure: No Use of substances other than those prescribed or required for medical reasons: No Currently Displaying Signs/Symptoms of Drug Intoxication Withdrawal: No Have you been hit, kicked, punched, or otherwise hurt by someone within the past year? If so, by whom?: No Do you feel safe in your current relationship?: No Is there a partner from a previous relationship who is making you feel unsafe now?: No Are you made to feel afraid or neglected: No Advance Directives: No Advance Directives Information Provided: Yes Do you have thoughts of harming others: None Do you have a plan to hurt others: No Plan Recently lost weight without trying: No Meds Allergies Allergy/AdvReac Type Severity Reaction Status Date / Time levofloxacin [From Levaquin] Allergy Unknown Verified 11/30/20 13:53 paroxetine [From Paxil] Allergy Unknown Verified 11/30/20 13:53 prochlorperazine Allergy Unknown Verified 11/30/20 13:53 [From Compazine] shrimp Allergy Anaphylaxis Verified 11/30/20 13:53 Active Medications: Current Medications Generic Name Dose Route Start Last Admin Trade Name Freq PRN Reason Stop Dose Admin Acetaminophen 650 mg 12/01/20 01:39 Acetaminophen 325 Mg Tablet PO Q6H PRN Pain, Mild (Pain Scale 1-3) Docusate Sodium 100 mg 12/01/20 01:39 Docusate Sodium 100 Mg Capsule PO DAILY PRN Constipation Enoxaparin Sodium 40 mg 12/01/20 06:00 12/01/20 06:53 Enoxaparin Sodium 40 Mg/0.4 Ml Syringe SUBCUT 40 mg Q24H [facility] Administration Furosemide 40 mg 12/01/20 09:00 12/01/20 08:32 Furosemide 40 Mg/4 Ml Vial IVPUSH 40 mg BID@0900,1800 [facility] Administration Protocol Ondansetron HCl 4 mg 12/01/20 01:39 Ondansetron Hcl 4 Mg/2 Ml Vial IVPUSH Q8H PRN Nausea and Vomiting Oxycodone HCl 5 mg 11/30/20 23:54 12/01/20 08:31 Oxycodone Hcl Immed Release 5 Mg Tablet PO 5 mg Q6H PRN Administration Pain, Severe (Pain Scale 7-10) Pharmacy Consult 1 each 11/30/20 22:49 Consult Rx Perform Med Rec MISCELLANE ONCE PRN Consult order Sodium Chloride 3 ml 12/01/20 01:39 12/01/20 08:31 0.9 % Sodium Chloride Flush 3 Ml Syringe IVFLUSH 3 ml QSHIFT [facility] Administration Home Medications Medication Instructions Recorded Confirmed Last Taken Type atorvastatin 40 mg tablet 40 mg PO DAILY 07/04/20 12/01/20 Unknown History carvedilol 25 mg tablet 25 mg PO BID 07/04/20 12/01/20 11/30/20 History clonidine HCl 0.1 mg tablet 0.1 mg PO BID 07/04/20 12/01/20 11/30/20 History lorazepam 0.5 mg tablet 0.5 mg PO BEDTIME 07/04/20 12/01/20 11/29/20 History losartan 50 mg tablet 50 mg PO DAILY 07/04/20 12/01/20 11/30/20 History pantoprazole 40 mg tablet,delayed 40 mg PO DAILY 07/04/20 12/01/20 11/30/20 History release albuterol 90 mcg INHALATION Q4-6H PRN 12/01/20 12/01/20 Unknown History ergocalciferol (vitamin D2) 1 cap PO SA 12/01/20 12/01/20 11/25/20 History fluticasone propion-salmeterol 1 inh INHALATION BID 12/01/20 12/01/20 11/30/20 History [Wixela Inhub] fluticasone propionate [Flonase] 2 spray INTRANASAL DAILY 12/01/20 12/01/20 11/30/20 History furosemide 40 mg PO DAILY 12/01/20 12/01/20 11/30/20 History loratadine 10 mg PO DAILY 12/01/20 12/01/20 11/30/20 History Physical Exam Vital Signs: Vital Signs: Last Vital Signs Temp 97 F 12/01/20 08:00 Pulse 78 12/01/20 08:00 Resp 20 12/01/20 08:00 BP 129/66 12/01/20 08:00 Pulse Ox 98 12/01/20 08:00 Body Mass Index 36.0 Const: General: cooperative, comfortable and no acute distress Orientation/consciousness: patient oriented x3 HENMT: Other: Unremarkable Neck: Neck: Yes normal visual inspection Chest: Chest palpation & inspection: normal inspection of the chest Resp: Auscultation: clear to auscultation bilaterally, no crackles and no wheezes Cardio: Jugular venous distension: no JVD Palpation: normal PMI Heart sounds: S1 normal heart sound present, S2 normal heart sound present, no gallops, no murmurs and no rubs GI: Palpation (GI): Soft to palpation Back/Spine/Pelvis: Other: unremarkable Skin: General skin exam: no rashes or lesions noted Neuro: General: patient oriented x3 Extrem: General: Yes edema (1+) Psych: Mental Status: mental status grossly normal Results Labs and Meds Result diagrams: 12/01/20 06:14 12/01/20 06:14 Lab results: Laboratory Results - last 24 hr 11/30/20 11/30/20 11/30/20 14:48 14:48 14:48 WBC 6.7 RBC 3.34 L Hgb 9.6 L Hct 29.5 L MCV 88.3 MCH 28.7 MCHC 32.5 RDW 15.5 Plt Count 199 MPV 9.7 Immature Gran % (Auto) 0.4 Neut % (Auto) 68.6 Lymph % (Auto) 16.6 L [place] % (Auto) 13.3 H Eos % (Auto) 0.7 Baso % (Auto) 0.4 Lymph # (Auto) 1.1 L [place] # (Auto) 0.9 Eos # (Auto) 0.1 Baso # (Auto) 0.0 Abs Immat Gran (auto) 0.03 Absolute Neuts (auto) 4.6 Absolute Nucleated RBC 0.000 Nucleated RBC % (auto) 0.0 PT 14.0 H INR 1.2 H D-Dimer 893 Sodium 144 Potassium 3.4 Chloride 99 Carbon Dioxide 36 H Anion Gap 12 BUN 31 H Creatinine 1.11 Estim Creat Clear Calc 54.2 Estimated GFR 49 Random Glucose 149 H D Calcium 6.9 L D Magnesium < 0.6 L* Total Bilirubin 0.6 Direct Bilirubin 0.3 AST 29 D ALT 15 Alkaline Phosphatase 77 D Troponin I High Sens B-Natriuretic Peptide Total Protein 6.0 L Albumin 3.4 L D Lipase 45 COVID-19 ([facility]) COVID-19 Clin Com 11/30/20 11/30/20 11/30/20 14:48 18:30 22:01 WBC RBC Hgb Hct MCV MCH MCHC RDW Plt Count MPV Immature Gran % (Auto) Neut % (Auto) Lymph % (Auto) [place] % (Auto) Eos % (Auto) Baso % (Auto) Lymph # (Auto) [place] # (Auto) Eos # (Auto) Baso # (Auto) Abs Immat Gran (auto) Absolute Neuts (auto) Absolute Nucleated RBC Nucleated RBC % (auto) PT INR D-Dimer Sodium Potassium Chloride Carbon Dioxide Anion Gap BUN Creatinine Estim Creat Clear Calc Estimated GFR Random Glucose Calcium Magnesium 1.1 L* Total Bilirubin Direct Bilirubin AST ALT Alkaline Phosphatase Troponin I High Sens 5.9 5.9 B-Natriuretic Peptide 257 H Total Protein Albumin Lipase COVID-19 ([facility]) COVID-19 Clin Com 12/01/20 12/01/20 12/01/20 02:47 06:14 06:14 WBC 6.0 RBC 3.33 L Hgb 9.5 L Hct 29.5 L MCV 88.6 MCH 28.5 MCHC 32.2 RDW 15.5 Plt Count 210 MPV 10.4 Immature Gran % (Auto) 0.5 H Neut % (Auto) 58.3 Lymph % (Auto) 25.8 [place] % (Auto) 14.1 H Eos % (Auto) 1.0 Baso % (Auto) 0.3 Lymph # (Auto) 1.6 [place] # (Auto) 0.9 Eos # (Auto) 0.1 Baso # (Auto) 0.0 Abs Immat Gran (auto) 0.03 Absolute Neuts (auto) 3.5 Absolute Nucleated RBC 0.000 Nucleated RBC % (auto) 0.0 PT INR D-Dimer Sodium 140 Potassium 3.2 L Chloride 96 Carbon Dioxide 34 H Anion Gap 13 BUN 20 H Creatinine 0.87 Estim Creat Clear Calc 69.3 Estimated GFR > 60 Random Glucose 88 D Calcium 7.2 L Magnesium Total Bilirubin Direct Bilirubin AST ALT Alkaline Phosphatase Troponin I High Sens B-Natriuretic Peptide Total Protein Albumin Lipase COVID-19 ([facility]) Negative COVID-19 Clin Com See Note 12/01/20 06:14 WBC RBC Hgb Hct MCV MCH MCHC RDW Plt Count MPV Immature Gran % (Auto) Neut % (Auto) Lymph % (Auto) [place] % (Auto) Eos % (Auto) Baso % (Auto) Lymph # (Auto) [place] # (Auto) Eos # (Auto) Baso # (Auto) Abs Immat Gran (auto) Absolute Neuts (auto) Absolute Nucleated RBC Nucleated RBC % (auto) PT INR D-Dimer Sodium Potassium Chloride Carbon Dioxide Anion Gap BUN Creatinine Estim Creat Clear Calc Estimated GFR Random Glucose Calcium Magnesium 1.5 L Total Bilirubin Direct Bilirubin AST ALT Alkaline Phosphatase Troponin I High Sens B-Natriuretic Peptide Total Protein Albumin Lipase COVID-19 ([facility]) COVID-19 Clin Com ECG Attestation: I personally reviewed and interpreted this ECG as follows: Interpretation: EKG today with sinus rhythm at 72/Min; no significant ST-T changes and otherwise unremarkable. Imaging Radiologist's impression: Impressions Chest X-Ray 11/30/20 17:17 IMPRESSION: No evidence of acute disease compared with 05/08/2020 Chest CTA 11/30/20 18:04 IMPRESSION: No evidence for pulmonary emboli. Mild basilar atelectasis VTE: Negative Assessment and Plan (1) Acute on chronic diastolic (congestive) heart failure: Status: Acute (2) Precordial chest pain: Status: Acute (3) Essential hypertension: Status: Acute (4) Other and unspecified hyperlipidemia: Status: Acute Cardiac BNP is elevated to 257. High sensitivity troponins of 5.9 followed by 5.9, within normal limits. Chest x-ray without any acute disease. CT without any evidence of pulmonary emboli and shows mild basal atelectasis. Overall, she could have diastolic heart failure contributing to the edema as well as shortness of breath. She states that she has already lost 9 lb after she increase the diuretic dose herself. Currently, she only has mild overload. On IV Lasix today. Chest pain itself sounds very atypical for angina. Possibly consider outpatient stress testing. Correct electrolytes. Echocardiogram today. We will follow up with you.
--- NOTE | 2020-12-01 11:02 | MHC.CM.PN ---
dc plan pt is independent cm intervention is not indicated
--- NOTE | 2020-12-01 12:02 | HO.PM.IMPN ---
Subjective Subjective Date of Service: 12/01/20 <CARROL Eller - Last Filed: 12/01/20 12:39> 12/01/20 <Lito Ngo MD - Last Filed: 12/01/20 15:26> Interval History: f/u chest pain, leg edema Improvement in chest pain, leg edema No shortness of breath <CARROL Eller - Last Filed: 12/01/20 12:39> Review of Systems Review of Systems: Yes all other systems are reviewed and are negative <CARROL Eller - Last Filed: 12/01/20 12:39> Constitutional Constitutional: Denies chills and Denies fever(s) <CARROL Eller - Last Filed: 12/01/20 12:39> Respiratory Respiratory: Denies cough <CARROL Eller Last Filed: 12/01/20 12:39> Gastrointestinal Gastrointestinal: Denies abdominal pain <CARROL Eller - Last Filed: 12/01/20 12:39> Physical Exam Vital Signs: Vital Signs: Last Vital Signs Temp 96 F L 12/01/20 11:02 Pulse 71 12/01/20 11:02 Resp 20 12/01/20 11:02 BP 118/65 12/01/20 11:02 Pulse Ox 20 L 12/01/20 11:02 Body Mass Index 36.0 <CARROL Eller - Last Filed: 12/01/20 12:39> Const: General: alert and awake <CARROL Eller - Last Filed: 12/01/20 12:39> Nutritional Appearance: overweight <CARROL Eller - Last Filed: 12/01/20 12:39> Orientation/consciousness: patient oriented x3 <CARROL Eller Last Filed: 12/01/20 12:39> HENMT: Head: Yes normocephalic and Yes atraumatic <CARROL Eller Last Filed: 12/01/20 12:39> Eyes: Sclerae: sclerae normal <CARROL Eller Last Filed: 12/01/20 12:39> Chest: Chest palpation & inspection: normal inspection of the chest <CARROL Eller Last Filed: 12/01/20 12:39> Resp: Effort & Inspection: normal respiratory effort and no respiratory distress <CARROL Eller Last Filed: 12/01/20 12:39> Auscultation: clear to auscultation bilaterally <CARROL Eller Last Filed: 12/01/20 12:39> Cardio: Rate: regular rate <CARROL Eller Last Filed: 12/01/20 12:39> Rhythm: regular rhythm <CARROL Eller Last Filed: 12/01/20 12:39> GI: Palpation (GI): Soft to palpation and nontender <CARROL Eller Last Filed: 12/01/20 12:39> Skin: General skin exam: no rashes or lesions noted <CARROL Eller Last Filed: 12/01/20 12:39> Neuro: General: patient oriented x3 <CARROL Eller Last Filed: 12/01/20 12:39> Cranial nerves: Yes CN's II-XII intact bilaterally and Yes Bilaterally intact EOM present <CARROL Eller Last Filed: 12/01/20 12:39> Extrem: Other: b/l leg edema <CARROL Eller Last Filed: 12/01/20 12:39> Objective Data Current Medications Generic Name Dose Route Start Last Admin Trade Name Beth PRN Reason Stop Dose Admin Acetaminophen 650 mg 12/01/20 01:39 Acetaminophen 325 Mg Tablet PO Q6H PRN Pain, Mild (Pain Scale 1-3) Docusate Sodium 100 mg 12/01/20 01:39 Docusate Sodium 100 Mg Capsule PO DAILY PRN Constipation Enoxaparin Sodium 40 mg 12/01/20 06:00 12/01/20 06:53 Enoxaparin Sodium 40 Mg/0.4 Ml Syringe SUBCUT 40 mg Q24H JOSÉ Administration Furosemide 40 mg 12/01/20 09:00 12/01/20 08:32 Furosemide 40 Mg/4 Ml Vial IVPUSH 40 mg BID@0900,1800 JOSÉ Administration Protocol Ondansetron HCl 4 mg 12/01/20 01:39 Ondansetron Hcl 4 Mg/2 Ml Vial IVPUSH Q8H PRN Nausea and Vomiting Oxycodone HCl 5 mg 11/30/20 23:54 12/01/20 08:31 Oxycodone Hcl Immed Release 5 Mg Tablet PO 5 mg Q6H PRN Administration Pain, Severe (Pain Scale 7-10) Pharmacy Consult 1 each 11/30/20 22:49 Consult Rx Perform Med Rec MISCELLANE ONCE PRN Consult order Sodium Chloride 3 ml 12/01/20 01:39 12/01/20 08:31 0.9 % Sodium Chloride Flush 3 Ml Syringe IVFLUSH 3 ml QSHIFT JOSÉ Administration <CARROL Eller - Last Filed: 12/01/20 12:39> Labs CBC & Chem 7: : 12/01/20 06:14 12/01/20 06:14 <CARROL Eller - Last Filed: 12/01/20 12:39> Assessment and Plan (1) Acute on chronic diastolic (congestive) heart failure: Status: Acute <CARROL Eller - Last Filed: 12/01/20 12:39> (2) Atypical chest pain: Status: Acute <CARROL Eller - Last Filed: 12/01/20 12:39> Assessment and Plan: This is a 62-year-old female with past medical history of asthma, CKD, HLD, HTN, who presents to the hospital with complaints of chest pain Atypical Chest pain trop flat 5.9 x2. no ischemic changes CTA neg for PE -seen by cardiology - possible outpatient stress test CHF patient denies history of CHF although uses Lasix 40 mg daily - echo pending - cardiology following - continue Lasix 40 IV b.i.d. - strict I&O, daily weight, low-sodium diet hypomagnesemia replaced -follow Mag level Normocytic Anemia chronic. H/H stable HTN - continue coreg, losartan, clonidine - continue home regimen HLD -continue statin GERD -continue PPI asthma - no exacerbation - continue home inhalers DVT prophylaxis: Lovenox Attending: Dr. Ngo <CARROL Eller - Last Filed: 12/01/20 12:39> Attending Attestation: Patient seen and examined independently and I was present during amanda portion of E/M service. Agree with CARROL Barrientos's history, physical, assessment, and plan. 1. Acute diastolic CHF, newly diagnosed Echo Done, showing grade 2 diastolic dysfunction clinically still volume overloaded with 2+ pitting edema bilaterally and +JVD both of which are slowly improving continue with IV lasix and likely transition to oral by tomorrow. <Lito Ngo MD - Last Filed: 12/01/20 15:26>
[2020-12-01] MEDS: carvediloL 25 MG TABLET PO (20:39)
[2020-12-01] MEDS: LORazepam 0.5 MG TABLET PO (20:39)
[2020-12-01] MEDS: cloNIDine HCL 0.1 MG TABLET PO (20:39)
[2020-12-02] VITALS: BP 124/73; PULSE 72; RESP 16; TEMP 37.2; O2SAT 95
[2020-12-02 03:06] VITALS: BP 125/73; PULSE 71; RESP 16; TEMP 37.1; O2SAT 98
[2020-12-02 06:00] VITALS: BMI 36.3
[2020-12-02] MEDS: Enoxaparin Sodium 40 MG/0.4 ML SYRINGE SUBCUT (06:32)
[2020-12-02] MEDS: Omeprazole 20 MG CAPSULE.DR PO (06:33)
[2020-12-02 06:55] VITALS: BP 125/65; PULSE 70; RESP 18; TEMP 36.6; O2SAT 98
[2020-12-02 07:09] LABS: Basophils Percent Auto 0.5 % (0-2); Eosinophils Absolute Auto 0.1 X10*3/uL (0.0-0.4); Eosinophils Percent Auto 3.4 % (0-4); Hematocrit 28.5 % (37-47); Hemoglobin 9.3 g/dl (12.0-16.0); Imm Gran Abs Auto 0.02 X10*3/uL (0.00-0.03); Imm Gran Pct Auto 0.5 % (0.0-0.4); Lymphocytes Absolute Auto 1.1 X10*3/uL (1.2-4.9); Lymphocytes Percent Auto 28.9 % (20-40); MANUAL DIFF FLAG NO; Mean Corpuscular HGB Conc 32.6 g/dl (31.0-35.0); Mean Corpuscular Hemoglobin 28.9 pg (27.0-33.0); Mean Corpuscular Volume 88.5 fL (80-98); Mean Platelet Volume 10.8 fL (9.4-12.3); Monocytes Absolute Auto 0.5 X10*3/uL (0.1-1.2); Monocytes Percent Auto 12.1 % (2-11); Neutrophils Absolute Auto 2.1 X10*3/uL (2.0-8.3); Neutrophils Percent Auto 54.6 % (45-73); Platelet Count 176 X10*3/uL (160-400); Red Blood Count 3.22 X10*6/uL (4.20-5.50); Red Cell Distribution Width 15.5 % (11.0-16.0); White Blood Count 3.8 X10*3/uL (4.8-10.8)
[2020-12-02 07:55] LABS: Anion Gap 16 (12-20); Blood Urea Nitrogen 17 mg/dL (9-16); Calcium 6.9 mg/dL (8.4-10.2); Carbon Dioxide 29 mmol/L (22-29); Chloride 97 mmol/L (96-108); Creatinine Clr Calc Pharmacy 74.7; Estimated Glomerular Filt Rate > 60; Glucose Random 86 mg/dL (60-115); Magnesium 1.7 mg/dL (1.6-2.6); Potassium 2.9 mmol/L (3.3-5.1); Sodium 139 mmol/L (135-145)
[2020-12-02] MEDS: carvediloL 25 MG TABLET PO (08:22)
[2020-12-02] MEDS: cloNIDine HCL 0.1 MG TABLET PO (08:22)
[2020-12-02] MEDS: 0.9 % Sodium Chloride Flush 3 ML SYRINGE IVFLUSH (08:22)
[2020-12-02] MEDS: Losartan Potassium 50 MG TABLET PO (08:22)
[2020-12-02] MEDS: Furosemide 40 MG/4 ML VIAL IVPUSH (08:23)
[2020-12-02] MEDS: Potassium Chloride/H20 10 MEQ/100 ML PIGGYBACK 100 MEQ IV ×2 (10:13→11:31)
[2020-12-02] MEDS: Magnesium Oxide 400 MG TABLET 800 MG PO (10:14)
[2020-12-02] MEDS: Potassium Chloride ER 20 MEQ TAB.ER.PRT 40 MEQ PO (10:14)
[2020-12-02] MEDS: Fluticasone Propionate Nasal 16 GM SPRAY 2 SPRAY NOSTRIL-B (10:14)
[2020-12-02 10:58] VITALS: BP 97/60; PULSE 75; RESP 18; TEMP 36.1; O2SAT 96
--- NOTE | 2020-12-02 11:03 | PM.DS ---
DS: Providers Provider Date of Service: 12/02/20 <CARROL Eller - Last Filed: 12/02/20 11:48> 12/02/20 <Keerthi Montejo MD - Last Filed: 12/02/20 15:27> Date of admission: 11/30/20 23:26 <CARROL Eller - Last Filed: 12/02/20 11:48> Primary care physician: Unknown Physician <CARROL Eller - Last Filed: 12/02/20 11:48> Consults: 12/01/20 05:23 Consult to Cardiology Routine Consulting Provider: Roldan Cazares Reason for consultation: chf Has provider been notified: No <CARROL Eller - Last Filed: 12/02/20 11:48> DS: Diagnosis Discharge Diagnosis (1) Acute on chronic diastolic (congestive) heart failure: Status: Acute <CARROL Eller - Last Filed: 12/02/20 11:48> (2) Atypical chest pain: Status: Acute <CARROL Eller - Last Filed: 12/02/20 11:48> (3) Hypomagnesemia: Status: Acute <CARROL Eller - Last Filed: 12/02/20 11:48> (4) Hypokalemia: Status: Acute <CARROL Eller - Last Filed: 12/02/20 11:48> DS: Medications Discharge Medications Home Medications: Home Medications Medication Instructions Recorded Confirmed atorvastatin 40 mg tablet 40 mg PO DAILY 07/04/20 12/01/20 carvedilol 25 mg tablet 25 mg PO BID 07/04/20 12/01/20 clonidine HCl 0.1 mg tablet 0.1 mg PO BID 07/04/20 12/01/20 lorazepam 0.5 mg tablet 0.5 mg PO BEDTIME 07/04/20 12/01/20 losartan 50 mg tablet 50 mg PO DAILY 07/04/20 12/01/20 pantoprazole 40 mg tablet,delayed 40 mg PO DAILY 07/04/20 12/01/20 release albuterol 90 mcg INHALATION Q4-6H PRN 12/01/20 12/01/20 ergocalciferol (vitamin D2) 1 cap PO SA 12/01/20 12/01/20 fluticasone propion-salmeterol 1 inh INHALATION BID 12/01/20 12/01/20 [Wixela Inhub] fluticasone propionate [Flonase] 2 spray INTRANASAL DAILY 12/01/20 12/01/20 furosemide 40 mg PO DAILY 12/01/20 12/01/20 loratadine 10 mg PO DAILY 12/01/20 12/01/20 <CARROL Eller - Last Filed: 12/02/20 11:48> DS: Summary Hospital Course Hospital Course: This is a 62-year-old female with past medical history of asthma, CKD, HLD, HTN, who presents to the hospital with complaints of left-sided chest pain. Patient reports that it started at 4:00 a.m. the day of presentation, pain is a sharp, worse with deep inspiration, constant, reproducible, nonradiating, not associated with any palpitations, she also complains of shortness of breath on exertion, lower extremity edema for the past 3-4 days, denies any cough, no sputum production, no abdominal pain nausea or vomiting, no diarrhea constipation, no urinary symptoms. No headache or change in vision. Patient complains of orthopnea, and PND. The patient was admitted to telemetry due to chest pain and leg edema. Chest pain seemed atypical in nature. EKG showed no acute ischemic changes. Highly sensitive Troponin was checked and was flat x2. Chest pain has now resolved. For leg edema she was started on diuresis with IV Lasix. She underwent echocardiogram which revealed grade 2 diastolic dysfunction with preserved LVEF. She was seen in consultation by Cardiology who recommended increasing her home dose of Lasix from 40 to 60 daily. She should follow up with her engineering technician Dr. Prater for further management. Her potassium and magnesium were both noted to be low, these were replaced and she is being discharged home with oral replacement. She should have repeat labs drawn in 1 week. She should call PCP to schedule a follow up appointment to monitor electrolytes and kidney function. <CARROL Eller - Last Filed: 12/02/20 11:48> Time Spent with Patient Time attestation: Total time spent providing and/or coordinating discharge services: <CARROL Eller - Last Filed: 12/02/20 11:48> Discharge coordination time: Greater than 30 minutes <CARROL Eller - Last Filed: 12/02/20 11:48> Physical Exam Vital Signs: Vital Signs: Last Vital Signs Temp 97 F 12/02/20 10:58 Pulse 75 12/02/20 10:58 Resp 18 12/02/20 10:58 BP 97/60 12/02/20 10:58 Pulse Ox 96 12/02/20 10:58 Body Mass Index 36.3 <CARROL Eller - Last Filed: 12/02/20 11:48> Const: Nutritional Appearance: well nourished <CARROL Eller - Last Filed: 12/02/20 11:48> Orientation/consciousness: patient oriented x3 <CARROL Eller - Last Filed: 12/02/20 11:48> HENMT: Head: Yes normocephalic and Yes atraumatic <CARROL Eller - Last Filed: 12/02/20 11:48> Eyes: Sclerae: sclerae normal <CARROL Eller - Last Filed: 12/02/20 11:48> Chest: Chest palpation & inspection: normal inspection of the chest <CARROL Eller - Last Filed: 12/02/20 11:48> Resp: Effort & Inspection: normal respiratory effort and no respiratory distress <CARROL Eller - Last Filed: 12/02/20 11:48> Auscultation: clear to auscultation bilaterally <CARROL Eller - Last Filed: 12/02/20 11:48> Cardio: Rate: regular rate <CARROL Eller - Last Filed: 12/02/20 11:48> Rhythm: regular rhythm <CARROL Eller - Last Filed: 12/02/20 11:48> Neuro: General: patient oriented x3 <CARROL Eller - Last Filed: 12/02/20 11:48> Cranial nerves: Yes CN's II-XII intact bilaterally and Yes Bilaterally intact EOM present <CARROL Eller - Last Filed: 12/02/20 11:48> Extrem: Other: trace to 1+ edema, significantly improved. <CARROL Eller - Last Filed: 12/02/20 11:48> DS: Data Data Completed and Pending Labs on day of discharge: Laboratory Results - last 24 hr 12/02/20 12/02/20 05:54 05:54 WBC 3.8 L RBC 3.22 L Hgb 9.3 L Hct 28.5 L MCV 88.5 MCH 28.9 MCHC 32.6 RDW 15.5 Plt Count 176 MPV 10.8 Immature Gran % (Auto) 0.5 H Neut % (Auto) 54.6 Lymph % (Auto) 28.9 Stokes % (Auto) 12.1 H Eos % (Auto) 3.4 Baso % (Auto) 0.5 Lymph # (Auto) 1.1 L Stokes # (Auto) 0.5 Eos # (Auto) 0.1 Baso # (Auto) 0.0 Abs Immat Gran (auto) 0.02 Absolute Neuts (auto) 2.1 Absolute Nucleated RBC 0.000 Nucleated RBC % (auto) 0.0 Sodium 139 Potassium 2.9 L Chloride 97 Carbon Dioxide 29 Anion Gap 16 BUN 17 H Creatinine 0.81 Estim Creat Clear Calc 74.7 Estimated GFR > 60 Random Glucose 86 Calcium 6.9 L Magnesium 1.7 <CARROL Eller - Last Filed: 12/02/20 11:48> Discharge Plan Discharge Patient Disposition: Home, Self-Care <CARROL Eller - Last Filed: 12/02/20 11:48> Referrals: Ana Lilia Espinoza NP [Nurse Practitioner] - Kade Prater [Physician] - <CARROL Eller - Last Filed: 12/02/20 11:48> Discharge Medications: New furosemide 20 mg Tablet 60 mg PO DAILY 30 Days Qty: 90 RF: 0 magnesium oxide 400 mg (241.3 mg magnesium) Tablet 800 mg PO DAILY 30 Days Qty: 60 RF: 0 potassium chloride [Klor-Con M20] 20 mEq tablet,ER particles/crystals 40 meq PO DAILY 30 Days Qty: 60 RF: 0 Continued fluticasone propion-salmeterol [Wixela Inhub] 250-50 mcg/dose blister with device 1 inh inhalation BID RF: 0 albuterol 90 mcg/actuation Aerosol 90 mcg INHALATION Q4-6H PRN (Reason: Dyspnea) RF: 0 ergocalciferol (vitamin D2) 1,250 mcg (50,000 unit) capsule 1 cap PO SA RF: 0 fluticasone propionate 50 mcg/actuation Gunpowder,Suspension 2 spray INTRANASAL DAILY RF: 0 loratadine 10 mg Tablet 10 mg PO DAILY RF: 0 pantoprazole 40 mg tablet,delayed release (DR/EC) 40 mg PO DAILY RF: 0 clonidine HCl 0.1 mg tablet 0.1 mg PO BID RF: 0 carvedilol 25 mg tablet 25 mg PO BID RF: 0 atorvastatin 40 mg tablet 40 mg PO DAILY RF: 0 losartan 50 mg tablet 50 mg PO DAILY RF: 0 lorazepam 0.5 mg tablet 0.5 mg PO BEDTIME RF: 0 Discontinued furosemide 20 mg tablet 40 mg PO DAILY RF: 0 <CARROL Eller - Last Filed: 12/02/20 11:48> Discharge Orders: Discharge Order (Routine); Ordered 12/02/20 Ordered By: Janette Ellis <CARROL Eller - Last Filed: 12/02/20 11:48> Activity on Discharge: As tolerated <CARROL Eller - Last Filed: 12/02/20 11:48> As tolerated <Keerthi Montejo MD - Last Filed: 12/02/20 15:27> Stand Alone Forms: Patient Portal Discharge page <CARROL Eller - Last Filed: 12/02/20 11:48> Other Ambulatory Orders: Basic Metabolic Panel (Routine) Timeframe: 1 Week Facility: [facility], [place] - Location: Laboratory Ordered By: Janette Ellis Magnesium (Routine) Timeframe: 1 Week Facility: [facility], [place] - Location: Laboratory Ordered By: Janette Ellis <CARROL Eller - Last Filed: 12/02/20 11:48> Care Plan Goals: See below <CARROL Eller - Last Filed: 12/02/20 11:48> Health Concerns: Leg swelling heart failure Low potassium Low magnesium Chest pain <CARROL Eller - Last Filed: 12/02/20 11:48> Plan of Treatment: Leg swelling is - related to diastolic heart failure. Your dose of lasix has been increased to 60 mg daily. Repeat BMP should be check in 1 week to monitor your kidney function Low potassium, low magnesium- you have been started on replacement for both potassium and magnesium. You should have repeat basic metabolic profile and repeat magnesium labs checked in week. Please call your PCP to schedule a follow up appointment Please call your engineering technician to schedule a follow-up appointment <CARROL Eller - Last Filed: 12/02/20 11:48> Assessment: See discharge instructions <CARROL Eller - Last Filed: 12/02/20 11:48> Discharge Date/Time: 12/02/20 13:43 <CARROL Eller - Last Filed: 12/02/20 11:48>
--- NOTE | 2020-12-02 11:10 | P.PNCA_ITS ---
Subjective Subjective Date of Service: 12/02/20 Interval history: She states that she feels okay. No specific cardiac complaints. No further chest pain. Review of Systems Review of Systems Yes all other systems are reviewed and are negative Cardiovascular: Reports as per HPI, Reports no additional cardiovascular complaints, Denies acrocyanosis, Denies cool extremities, Denies painful fingertips, Denies chest pain, Denies chest pain at rest, Denies diaphoresis, Denies syncope, Denies irregular heart rhythm, Denies claudication, Reports leg edema, Denies lightheadedness, Denies palpitations and Reports dyspnea Respiratory: Reports dyspnea Denies syncope Endocrine: Denies palpitations Physical Exam Vital Signs: Last Vital Signs Temp 97 F 12/02/20 10:58 Pulse 75 12/02/20 10:58 Resp 18 12/02/20 10:58 BP 97/60 12/02/20 10:58 Pulse Ox 96 12/02/20 10:58 Body Mass Index 36.3 Const General: cooperative, comfortable and no acute distress Orientation/consciousness: patient oriented x3 HENMT Other: Unremarkable Neck Neck: Yes normal visual inspection Chest Chest palpation & inspection: normal inspection of the chest Resp Auscultation: clear to auscultation bilaterally, no crackles and no wheezes Cardio Jugular venous distension: no JVD Palpation: normal PMI Heart sounds: S1 normal heart sound present, S2 normal heart sound present, no gallops, no murmurs and no rubs GI Palpation (GI): Soft to palpation Back/Spine/Pelvis Other: unremarkable Skin General skin exam: no rashes or lesions noted Neuro General: patient oriented x3 Extrem General: Yes edema (1+) Psych Mental Status: mental status grossly normal Results Labs and Meds Result diagrams: 12/02/20 05:54 12/02/20 05:54 Lab results: Laboratory Results - last 24 hr 12/02/20 12/02/20 05:54 05:54 WBC 3.8 L RBC 3.22 L Hgb 9.3 L Hct 28.5 L MCV 88.5 MCH 28.9 MCHC 32.6 RDW 15.5 Plt Count 176 MPV 10.8 Immature Gran % (Auto) 0.5 H Neut % (Auto) 54.6 Lymph % (Auto) 28.9 [place] % (Auto) 12.1 H Eos % (Auto) 3.4 Baso % (Auto) 0.5 Lymph # (Auto) 1.1 L [place] # (Auto) 0.5 Eos # (Auto) 0.1 Baso # (Auto) 0.0 Abs Immat Gran (auto) 0.02 Absolute Neuts (auto) 2.1 Absolute Nucleated RBC 0.000 Nucleated RBC % (auto) 0.0 Sodium 139 Potassium 2.9 L Chloride 97 Carbon Dioxide 29 Anion Gap 16 BUN 17 H Creatinine 0.81 Estim Creat Clear Calc 74.7 Estimated GFR > 60 Random Glucose 86 Calcium 6.9 L Magnesium 1.7 Progress Note: A&P Assessment and plan (1) Acute on chronic diastolic (congestive) heart failure: Status: Acute (2) Precordial chest pain: Status: Acute (3) Essential hypertension: Status: Acute (4) Hypokalemia: Status: Acute (5) Hypomagnesemia: Status: Acute Assessment and Plan: Cardiac BNP is elevated to 257. High sensitivity troponins of 5.9 followed by 5.9, within normal limits. Chest x-ray without any acute disease. CT without any evidence of pulmonary emboli and shows mild basal atelectasis. Overall, she could have diastolic heart failure contributing to the edema as well as shortness of breath. She states that she has already lost 9 lb after she increased the diuretic dose herself. May discharge her on Lasix 60 mg daily. Chest pain itself sounds very atypical for angina. Resolved completely. Possibly consider outpatient stress testing. Correct electrolytes. She may see Dr. Prater, her own accounts clerk. Fall Risk Details Current Medications: Current Medications Generic Name Dose Route Start Last Admin Trade Name Carltonq PRN Reason Stop Dose Admin Acetaminophen 650 mg 12/01/20 01:39 Acetaminophen 325 Mg Tablet PO Q6H PRN Pain, Mild (Pain Scale 1-3) Albuterol Sulfate 1 puff 12/01/20 12:47 Albuterol Sulfate 90 Mcg 8 Gm Inhaler INHALE Q4H PRN Dyspnea Atorvastatin Calcium 40 mg 12/02/20 21:00 Atorvastatin Calcium 40 Mg Tablet PO BEDTIME JOSÉ Carvedilol 25 mg 12/01/20 21:00 12/02/20 08:22 Carvedilol 25 Mg Tablet PO 25 mg BID JOSÉ Administration Protocol Clonidine HCl 0.1 mg 12/01/20 21:00 12/02/20 08:22 Clonidine Hcl 0.1 Mg Tablet PO 0.1 mg BID JOSÉ Administration Protocol Docusate Sodium 100 mg 12/01/20 01:39 Docusate Sodium 100 Mg Capsule PO DAILY PRN Constipation Enoxaparin Sodium 40 mg 12/01/20 06:00 12/02/20 06:32 Enoxaparin Sodium 40 Mg/0.4 Ml Syringe SUBCUT 40 mg Q24H JOSÉ Administration Ergocalciferol 1,250 mcg 12/02/20 22:00 Ergocalciferol (Vitamin D2) 1,250 Mcg Capsule PO Sa@2200 [facility] Fluticasone Propionate 2 spray 12/02/20 09:00 12/02/20 10:14 Fluticasone Propionate Nasal 16 Gm [place] NOSTRIL-B 2 spray DAILY [facility] Administration Fluticasone/Vilanterol 1 puff 12/02/20 08:00 12/02/20 08:06 Fluticasone/Vilanterol 100/25 Blst.W.Dev INHALE Not Given RDAILY [facility] Furosemide 60 mg 12/03/20 09:00 Furosemide 20 Mg Tablet PO DAILY [facility] Protocol Loratadine 10 mg 12/02/20 10:35 Loratadine 10 Mg Tablet PO DAILY [facility] Lorazepam 0.5 mg 12/01/20 21:00 12/01/20 20:39 Lorazepam 0.5 Mg Tablet PO 0.5 mg BEDTIME [facility] Administration Losartan Potassium 50 mg 12/02/20 09:00 12/02/20 08:22 Losartan Potassium 50 Mg Tablet PO 50 mg DAILY [facility] Administration Protocol Magnesium Oxide 800 mg 12/02/20 09:05 12/02/20 10:14 Magnesium Oxide 400 Mg Tablet PO 800 mg DAILY [facility] Administration Omeprazole 20 mg 12/02/20 06:30 12/02/20 06:33 Omeprazole 20 Mg Capsule.Dr PO 20 mg DAILY@0630 [facility] Administration Ondansetron HCl 4 mg 12/01/20 01:39 Ondansetron Hcl 4 Mg/2 Ml Vial IVPUSH Q8H PRN Nausea and Vomiting Oxycodone HCl 5 mg 11/30/20 23:54 12/01/20 08:31 Oxycodone Hcl Immed Release 5 Mg Tablet PO 5 mg Q6H PRN Administration Pain, Severe (Pain Scale 7-10) Pharmacy Consult 1 each 11/30/20 22:49 Consult Rx Perform Med Rec MISCELLANE ONCE PRN Consult order Sodium Chloride 3 ml 12/01/20 01:39 12/02/20 08:22 0.9 % Sodium Chloride Flush 3 Ml Syringe IVFLUSH 3 ml QSHIFT JOSÉ Administration Time Spent With Patient Time: Total time spent is greater than 50% in coordination of care (as docu mented) at patient's floor/unit and/or counseling patient: Time with patient: less than 15 minutes
[2020-12-02] MEDS: Loratadine 10 MG TABLET PO (11:31)
--- NOTE | 2020-12-02 12:04 | MHC.CM.PN ---
PT CLEARED TO DC HOME TODAY WITH NO SERVICES. PT TO SELF ARRANGE TRANSPORT
== END 2020-12-02 13:43 | disposition home or self-care (01) | DRG 194 ==
LOC: HO.ED 23:28 → HO.EDOVER 23:56 → HO.IMC 12-01 07:14
PROVIDERS: Nurse Practitioner Family; Physician Assistant Medical; Admitting Provider Internal Medicine; Emergency Provider Emergency Medicine; Visit Provider Hospitalist
DX: I13.0 Hypertensive heart and chronic kidney disease with heart failure and stage 1 through stage 4 chronic kidney disease, or unspecified chronic kidney disease (principal); N18.31 Chronic kidney disease, stage 3a; E83.42 Hypomagnesemia; I50.33 Acute on chronic diastolic (congestive) heart failure; E87.6 Hypokalemia; D63.1 Anemia in chronic kidney disease; J45.909 Unspecified asthma, uncomplicated; E78.5 Hyperlipidemia, unspecified; M10.9 Gout, unspecified; Z20.822 Contact with and (suspected) exposure to COVID-19; Z79.52 Long term (current) use of systemic steroids; Z79.899 Other long term (current) drug therapy
CPT/HCPCS: 36415; 71046; 71275; 80048; 80076; 83690; 83735; 83880; 84484; 85025; 85379; 85610; 87635; 93005; 93306; 96365; 96366; 96375; 99285; J1650; J1940; J3475; Q9957; Q9967

== ENCOUNTER 2020-12-09 09:01 | Outpatient (REF) | payer BC, SELFPAY ==
[2020-12-09 10:42] LABS: Anion Gap 15 (12-20); Blood Urea Nitrogen 40 mg/dL (9-16); Calcium 9.1 mg/dL (8.4-10.2); Carbon Dioxide 29 mmol/L (22-29); Chloride 105 mmol/L (96-108); Estimated Glomerular Filt Rate 43; Glucose Random 79 mg/dL (60-115); Magnesium 1.5 mg/dL (1.6-2.6); Potassium 4.9 mmol/L (3.3-5.1); Sodium 144 mmol/L (135-145)
== END 2020-12-09 09:02 | disposition home or self-care (01) ==
LOC: HO.LAB 09:01
PROVIDERS: Visit Provider Physician Assistant Medical
DX: E83.42 Hypomagnesemia (principal); E87.6 Hypokalemia
CPT/HCPCS: 36415; 80048; 83735

== ENCOUNTER → 2021-01-08 14:39 | Outpatient (BNVA) | payer BC, SELFPAY | PROVIDERS: Visit Provider Internal Medicine Cardiovascular Disease ==

== ENCOUNTER 2021-01-17 16:56 | Outpatient (REF) | payer BC, SELFPAY ==
[2021-01-17 17:55] LABS: B Type Natriuretic Peptide 121 pg/mL (<100)
[2021-01-17 18:07] LABS: Anion Gap 16 (12-20); Blood Urea Nitrogen 39 mg/dL (9-16); Calcium 9.7 mg/dL (8.4-10.2); Carbon Dioxide 29 mmol/L (22-29); Chloride 98 mmol/L (96-108); Estimated Glomerular Filt Rate 38; Glucose Random 94 mg/dL (60-115); Magnesium 1.6 mg/dL (1.6-2.6); Potassium 4.3 mmol/L (3.3-5.1); Sodium 139 mmol/L (135-145)
== END 2021-01-17 16:57 | disposition home or self-care (01) ==
LOC: HO.LAB 16:56
PROVIDERS: PCP Nurse Practitioner Family; Visit Provider Internal Medicine Cardiovascular Disease
DX: I50.30 Unspecified diastolic (congestive) heart failure (principal)
CPT/HCPCS: 36415; 80048; 83735; 83880

== ENCOUNTER → 2021-01-24 09:13 | Outpatient (REF) | payer BC, SELFPAY ==
--- NOTE | ~2021-01-24 | NM_ITS ---
Lexiscan Myocardial perfusion study Indication: Chest pain, multiple risk factors, assess for coronary disease and ischemia Technique: The patient was brought in for a Lexiscan perfusion study on 01/24/2021 and was injected 0.4 mg of Lexiscan intravenously. Within a minute of this injection 35 mCi of sestamibi was given intravenously. Images were obtained using the SPECT gamma camera interlaced with the gating device. Images were obtained in supine position. Resting perfusion study was performed on 01/25/2021. Patient was administered 35 mCi of sestamibi intravenously at rest. Images were then obtained in supine position. Total DLP 112mGy-cm. Images were processed with the software and compared side to side in short axis, horizontal long axis and vertical long axis views. Findings: Raw acquisition was reviewed. The stress perfusion study showed no significant perfusion abnormality. Both uncorrected as well as CT attenuation corrected images were reviewed. The gated study shows normal LV systolic function with calculated LVEF of 46%, but visually it appears much higher. LV cavity is normal in size. The gated study shows normal wall thickening and contraction of segments. Resting study shows no significant perfusion abnormality. Gating at rest reveals normal wall motion with ejection fraction at 53%. The findings are consistent with no definite reversible or fixed perfusion defects. NM/NM cardiolite stress test Impression: 1. Myocardial perfusion imaging study shows likely normal myocardial perfusion. 2. Gated LVEF is 46% during stress, but visually it appears normal. 53% during rest. 3. Transient ischemic dilatation not present. EKG component of the test reported separately.
--- NOTE | 2021-01-24 09:18 | CA_ITS ---
Acquisition Time: 2021-01-24 09:20:24 Total Exercise Time: 00:01:14 Test Indications: CAD Medications: SEE CHART Protocol: DESMOND Max HR: 129 BPM 85% of Pred: 151 BPM Max BP: 168/056 mmHG Max Work Load: 2.6 METS Exercise stress test with exercise 1 min 14 sec of Desmond protocol, with moderate shortness of breath and request to stop exercise. Treadmill stopped and assisted to sitting. Once breathing improved, testing changed to pharmacological stress test with Leixscan injection, without anginal symptoms, without arrythmia, with normotensive response to injection, with nondiagnostic EKG for ischemia. Nuclear images pending. Test reviewed with Dr Almaraz. Referred By: Wayne Gilmore Overread By: JANEY SEWELL
== END ==
LOC: HO.CARD 09:13
PROVIDERS: Visit Provider Internal Medicine Cardiovascular Disease
DX: R07.9 Chest pain, unspecified (principal)
CPT/HCPCS: 78452; 93016; 93017; 93018; A9500; J2785

== ENCOUNTER → 2021-02-19 13:27 | Outpatient (BNVA) | payer BC, SELFPAY | PROVIDERS: PCP Nurse Practitioner Family; Referring Provider Nurse Practitioner Family; Visit Provider Internal Medicine Cardiovascular Disease ==

== ENCOUNTER 2021-03-07 15:52 | Emergency (ER) | payer BC, SELFPAY ==
--- NOTE | ~2021-03-07 | XR_ITS ---
EXAMINATION: XR CHEST CLINICAL INFORMATION: Chest pain COMPARISON: Previous chest x-ray recent November 2020 TECHNIQUE: 2 views of the chest were obtained. FINDINGS: The cardiac and mediastinal contours are stable. There is a air-fluid level behind the heart likely representing an esophageal hernia that is stable. The lungs are clear. There is no pleural effusion or pneumothorax. There are degenerative changes of the line. XR/XR chest 2V IMPRESSION: No evidence for acute disease in the chest. Esophageal hernia similar to previous exams.
[2021-03-07 15:59] VITALS: BP 172/94; PULSE 76; RESP 18; TEMP 36.6; O2SAT 97; BMI 34.3
--- NOTE | 2021-03-07 16:35 | ED_ITS ---
HPI - General Adult General Chief complaint: General Medical Stated complaint: Elevated blood pressure,multiple complaints Time Seen by Provider: 03/07/21 16:08 Source: patient Mode of arrival: ambulatory Limitations: no limitations History of Present Illness HPI narrative: 71-year-old female who presents emergency department for evaluation of chest heaviness which started yesterday. 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 She states that yesterday at around 11:00 a.m. while she was walking between building she developed a heaviness in her chest. She points to the mid sternal area when asked to localize the discomfort. She states that the chest heaviness is been constant since yesterday but has waxed and waned in intensity. She states that yesterday she developed shortness of breath and dyspnea on exertion. She also had associated nausea headache and diaphoresis with her chest heaviness. She denied radiation of the pain to her neck, jaw, arms or back. She states that today she continued to have chest pressure. She is currently having pressure in the sternal area of her anterior chest which is 5/10 at its worst. The pain is slightly worse with breathing. She did not take any pain medications. She has been compliant with her medications. She has noted elevated blood pressures today in yesterday with her hi S blood pressure yesterday being 180/105 her hi S blood pressure today being 159/115. The patient states this is her 3rd episode of this type of chest discomfort. She 1st experienced it and November 2020, she was hospitalized and found to have diastolic dysfunction. She also had a low potassium and low magnesium. She has been subsequently taking Lasix, potassium supplements and magnesium with improvement of her peripheral edema. She states that she had a stress test done on 01/24/2021. In reviewing results, patient was only able to exercise 1 minutes and 14 seconds and had to stop secondary to shortness of breath. The test was changed to a pharmacologic stress echocardiogram test. Results were consistent with moderate diastolic dysfunction with an EF of 55-60% with no wall motion abnormalities and no valvular abnormalities. Related Data Home Medications Medication Instructions Recorded Confirmed carvedilol 25 mg tablet 25 mg PO BID 07/04/20 02/23/21 atorvastatin 40 mg tablet mg PO 11/17/20 02/23/21 clonidine HCl 0.1 mg tablet 0.1 mg PO BID 11/17/20 02/23/21 lorazepam 0.5 mg tablet 0.5 mg PO BID PRN 11/17/20 02/23/21 losartan 50 mg tablet 50 mg PO DAILY 11/17/20 02/23/21 pantoprazole 40 mg tablet,delayed 40 mg PO DAILY 11/17/20 02/23/21 release albuterol 90 mcg INHALATION Q4-6H PRN 12/01/20 02/23/21 ergocalciferol (vitamin D2) 1 cap PO SA 12/01/20 02/23/21 fluticasone propionate 2 spray INTRANASAL DAILY 12/01/20 02/23/21 loratadine 10 mg PO DAILY 12/01/20 02/23/21 magnesium oxide 400 mg (241.3 mg 400 mg PO BID tab 02/23/21 02/23/21 magnesium) tablet potassium chloride 20 mEq 20 meq PO DAILY tab 02/23/21 02/23/21 tablet,extended release(part/cryst) Previous Rx's Medication Instructions Recorded furosemide 60 mg PO DAILY 30 Days #90 tab 12/02/20 magnesium oxide 800 mg PO DAILY 30 Days #60 tab 12/02/20 epinephrine 0.3 mg/0.3 mL 0.3 mg IM Q20M PRN #2 ea 02/23/21 injection, auto-injector fluticasone 250 mcg-salmeterol 50 1 inh INHALATION BID #60 ea 02/23/21 mcg/dose blistr powdr for inhalation montelukast 10 mg tablet 10 mg PO BEDTIME #30 tab 02/23/21 spironolactone 25 mg tablet 25 mg PO DAILY #30 tab 02/27/21 prednisone 20 mg tablet 40 mg PO DAILY 5 Days #10 tab 02/28/21 fluticasone propionate 110 2 inh INHALATION BID #12 g 03/02/21 mcg/actuation HFA aerosol inhaler Allergies Allergy/AdvReac Type Severity Reaction Status Date / Time Penicillins Allergy Unknown UNKNOWN Verified 02/23/21 12:15 levofloxacin [From Levaquin] Allergy Unknown Verified 02/23/21 12:15 paroxetine [From Paxil] Allergy Unknown Verified 02/23/21 12:15 prochlorperazine Allergy Unknown Verified 02/23/21 12:15 [From Compazine] shrimp Allergy Anaphylaxis Verified 02/23/21 12:15 compazine Allergy Mild hives Uncoded 02/19/21 13:43 seasonal and environmental Allergy Mild hives Uncoded 02/19/21 13:43 Compazine Allergy Unknown facial Uncoded 02/19/21 13:43 numbness shrimp & lobster Allergy Unknown hives Uncoded 02/19/21 13:43 tripolyphosphate Allergy Unknown hives Uncoded 02/19/21 13:43 Review of Systems Review of Systems: Yes all other systems are reviewed and are negative [facility]LY [facility] Past Medical History Medical History (HFpEF) heart failure with preserved ejection fraction Arthritis Asthma Chronic kidney disease (CKD) stage G3a/A1, moderately decreased glomerular filtration rate (GFR) between 45-59 mL/min/1.73 square meter and albuminuria creatinine ratio less than 30 mg/g COPD (chronic obstructive pulmonary disease) Essential hypertension Gout HTN (hypertension) Hypercholesteremia Inguinal hernia Other and unspecified hyperlipidemia Sliding hiatal hernia Family History Family History Father CHF (congestive heart failure) Mother CHF (congestive heart failure) Social History Social History Household Members: Family Household Members Other:: mother Housing: House Do you presently have visiting nurse or other home services: No Second Hand Smoke Exposure: No Advance Directives: No Advance Directives Information Provided: No service: No Physical Exam Vital Signs: Vital Signs: Last Vital Signs Temp 98.9 F 03/07/21 20:07 Pulse 85 03/07/21 20:07 Resp 18 03/07/21 20:07 BP 146/69 H 03/07/21 20:07 Pulse Ox 99 03/07/21 20:07 Body Mass Index 34.3 Const: General: cooperative and healthy appearing Orientation/consciousness: oriented to person and oriented to place Bowers itations: no limitations HENMT: Head: Yes normal to inspection, Yes normocephalic and Yes atraumatic Ears: external ears normal General nose exam: Normal external nose present Face and sinus: Yes normal facial exam Mouth: Normal oral and palatal mucosa present Throat: Yes posterior oropharynx normal Eyes: Periorbital: periorbital findings normal Eyelids: Yes eyelids normal Conjunctivae: conjunctivae normal Sclerae: sclerae normal Corneas: corneas normal Pupils: Equal, round and reactive pupils present Direct Ophthalmoscopy: normal light reflex Neck: Neck: Yes full ROM, Yes no lymphadenopathy, Yes no meningeal signs, Yes trachea midline and Yes supple Chest: Chest palpation & inspection: normal inspection of the chest and normal palpation of entire chest wall Resp: Effort & Inspection: normal respiratory effort and able to speak in complete sentences Auscultation: clear to auscultation bilaterally Cardio: Rate: regular rate Rhythm: regular rhythm Heart sounds: S1 normal heart sound present, S2 normal heart sound present and no murmurs GI: Inspection: Yes normal to inspection Palpation (GI): Soft to palpation, nontender, no guarding, not rigid and No hepatosplenomegaly present : General: Yes no CVA tenderness Back/Spine/Pelvis: Back: no CVA tenderness Cervical Spine: normal cervical lordosis Thoracic/Lumbar Spine: thoracic and lumbar spine normal to inspection Skin: Lesions: no lesions Rashes: no rashes Wounds: no wounds Neuro: General: oriented to person, oriented to place and no meningeal signs Cranial nerves: Yes CN's II-XII intact bilaterally and Yes Equal, round and reactive pupils present Cognition (Neuro): normal cognition Motor exam (neuro): 5/5 motor strength present throughout Extrem: General: Yes normal to inspection and Yes full ROM Psych: Appearance: well kempt Mental Status: mental status grossly normal Speech and movement: Normal speech and movement present Affect: normal affect Attitude: cooperative Thought process: Normal thought process present Thought content: Normal thought content present Course Course Course Narrative: 71-year-old female who presents emergency department for evaluation of chest pressure which has been constant since yesterday at around 11:00 a.m., shortness of breath, dyspnea on exertion, diaphoresis and elevated blood pressures. Patient continues to have chest pressure today and the pressure was 5/10 at the time of evaluation. The patient has been documenting her blood pressure at home and her blood pressure yesterday was as high as 180/105 and today was as high as 159/115. I did order a cardiac workup to include high sensitive troponin and D-dimer. Will obtain an EKG and a chest x- ray. The patient was given Tylenol 975 mg orally for her pain. 1753: Patient's laboratory evaluation revealed mild anemia which is chronic patient does have an elevated BUN creatinine which she has had similar elevations in the past as well. Patient's magnesium was slightly low 1.5 but I do not think this is related to her symptoms. The patient's troponin was detectable at 4.8 but not elevated, this will be repeated at 7:45 p.m. (3 hours). Patient's D-dimer was was 294 which is below the age adjusted D-dimer cut off of 690, therefore I will not get a pulmonary angiogram on the patient. 2106: The patient's repeat high sensitivity troponin was 5.6 which is reassuring. At this time, I do not think that the patient's pain is secondary to myocardial infarction or injury. The patient will be discharged home. She was advised to continue checking her blood pressure daily and record these readings to discuss with her PCP to see she needs adjustment in her medications. The patient was given verbal and printed instructions prior to discharge. The patient was advised to follow-up with their PCP in 2 days and to return to the emergency department if their symptoms get worse or if they develop any new symptoms that are concerning to them Medical Decision Making Lab Data Result diagrams: 03/07/21 16:47 03/07/21 16:47 Labs: Lab Results 03/07/21 03/07/21 03/07/21 Range/Units 16:47 16:47 16:47 WBC 4.4 L (4.8-10.8) X10*3/uL RBC 3.93 L D (4.20-5.50) X10*6/uL Hgb 11.6 L D (12.0-16.0) g/dl Hct 35.4 L D (37-47) % MCV 90.1 (80-98) fL MCH 29.5 (27.0-33.0) pg MCHC 32.8 (31.0-35.0) g/dl RDW 15.3 (11.0-16.0) % Plt Count 338 D (160-400) X10*3/uL MPV 10.1 (9.4-12.3) fL Immature Gran % (Auto) 0.2 (0.0-0.4) % Neut % (Auto) 81.7 H (45-73) % Lymph % (Auto) 14.4 L (20-40) % Butler % (Auto) 3.0 (2-11) % Eos % (Auto) 0.2 (0-4) % Baso % (Auto) 0.5 (0-2) % Lymph # (Auto) 0.6 L (1.2-4.9) X10*3/uL Butler # (Auto) 0.1 (0.1-1.2) X10*3/uL Eos # (Auto) 0.0 (0.0-0.4) X10*3/uL Baso # (Auto) 0.0 (0.0-0.2) X10*3/uL Abs Immat Gran (auto) 0.01 (0.00-0.03) X10*3/uL Absolute Neuts (auto) 3.6 (2.0-8.3) X10*3/uL Absolute Nucleated RBC 0.000 (0.0-0.012) X10*3/uL Nucleated RBC % (auto) 0.0 (0.0-0.2) /100WBC PT 11.2 (9.9-13.0) SEC INR 1.0 (0.9-1.1) APTT 34.9 (24.1-38.0) SEC D-Dimer 294 NG/ML Sodium (135-145) mmol/L Potassium (3.3-5.1) mmol/L Chloride (96-108) mmol/L Carbon Dioxide (22-29) mmol/L Anion Gap (12-20) BUN (9-16) mg/dL Creatinine (0.5-1.4) mg/dL Estim Creat Clear Calc Estimated GFR Random Glucose (60-115) mg/dL Calcium (8.4-10.2) mg/dL Magnesium Cancelled Total Bilirubin (0.0-1.0) mg/dL AST (5-31) U/L ALT (0-31) U/L Alkaline Phosphatase (39-117) U/L Troponin I High Sens (<3.5-17.0) ng/L B-Natriuretic Peptide (<100) pg/mL Total Protein (6.5-8.0) g/dL Albumin (3.5-5.0) g/dL Lipase (8-78) U/L 07/14/21 07/14/21 07/14/21 Range/Units 16:47 16:47 20:03 WBC (4.8-10.8) X10*3/uL RBC (4.20-5.50) X10*6/uL Hgb (12.0-16.0) g/dl Hct (37-47) % MCV (80-98) fL MCH (27.0-33.0) pg MCHC (31.0-35.0) g/dl RDW (11.0-16.0) % Plt Count (160-400) X10*3/uL MPV (9.4-12.3) fL Immature Gran % (Auto) (0.0-0.4) % Neut % (Auto) (45-73) % Lymph % (Auto) (20-40) % Butler % (Auto) (2-11) % Eos % (Auto) (0-4) % Baso % (Auto) (0-2) % Lymph # (Auto) (1.2-4.9) X10*3/uL Butler # (Auto) (0.1-1.2) X10*3/uL Eos # (Auto) (0.0-0.4) X10*3/uL Baso # (Auto) (0.0-0.2) X10*3/uL Abs Immat Gran (auto) (0.00-0.03) X10*3/uL Absolute Neuts (auto) (2.0-8.3) X10*3/uL Absolute Nucleated RBC (0.0-0.012) X10*3/uL Nucleated RBC % (auto) (0.0-0.2) /100WBC PT (9.9-13.0) SEC INR (0.9-1.1) APTT (24.1-38.0) SEC D-Dimer NG/ML Sodium 138 (135-145) mmol/L Potassium 4.5 (3.3-5.1) mmol/L Chloride 97 (96-108) mmol/L Carbon Dioxide 26 (22-29) mmol/L Anion Gap 20 (12-20) BUN 43 H (9-16) mg/dL Creatinine 1.67 H (0.5-1.4) mg/dL Estim Creat Clear Calc 34.7 Estimated GFR 30 Random Glucose 142 H D (60-115) mg/dL Calcium 10.3 H D (8.4-10.2) mg/dL Magnesium 1.5 L Total Bilirubin 1.0 (0.0-1.0) mg/dL AST 26 (5-31) U/L ALT 12 (0-31) U/L Alkaline Phosphatase 81 (39-117) U/L Troponin I High Sens 4.8 5.6 (<3.5-17.0) ng/L B-Natriuretic Peptide 95 (<100) pg/mL Total Protein 8.1 H D (6.5-8.0) g/dL Albumin 4.6 D (3.5-5.0) g/dL Lipase 57 (8-78) U/L Discharge Plan Discharge Clinical Impression: Chest pain Qualifiers: Chest pain type: other chest pain Qualified Code(s): R07.89 - Other chest pain Patient Disposition: Home, Self-Care Instructions: Chest Wall Pain (ED) Prescriptions: No Action spironolactone 25 mg tablet 25 mg PO DAILY Qty: 30 RF: 3 prednisone 20 mg tablet 40 mg PO DAILY 5 Days Qty: 10 RF: 0 Flovent HFA 110 mcg/actuation HFA aerosol inhaler 2 inh inhalation BID Qty: 12 RF: 1 albuterol 90 mcg/actuation Aerosol 90 mcg INHALATION Q4-6H PRN (Reason: Dyspnea) RF: 0 ergocalciferol (vitamin D2) 1,250 mcg (50,000 unit) capsule 1 cap PO SA RF: 0 fluticasone propionate 50 mcg/actuation [place],Suspension 2 spray INTRANASAL DAILY RF: 0 loratadine 10 mg Tablet 10 mg PO DAILY RF: 0 furosemide 20 mg Tablet 60 mg PO DAILY 30 Days Qty: 90 RF: 0 magnesium oxide 400 mg (241.3 mg magnesium) Tablet 800 mg PO DAILY 30 Days Qty: 60 RF: 0 magnesium oxide 400 mg (241.3 mg magnesium) tablet 400 mg PO BID RF: 0 fluticasone propion-salmeterol [Wixela Inhub] 250-50 mcg/dose blister with device 1 inh inhalation BID Qty: 60 RF: 1 montelukast 10 mg tablet 10 mg PO BEDTIME Qty: 30 RF: 1 epinephrine 0.3 mg/0.3 mL auto-injector 0.3 mg IM Q20M PRN (Reason: anaphylaxis) Qty: 2 RF: 0 carvedilol 25 mg tablet 25 mg PO BID RF: 0 pantoprazole 40 mg tablet,delayed release (DR/EC) 40 mg PO DAILY RF: 0 lorazepam 0.5 mg tablet 0.5 mg PO BID PRNRF: 0 atorvastatin 40 mg tablet PO RF: 0 clonidine HCl 0.1 mg tablet 0.1 mg PO BID RF: 0 losartan 50 mg tablet 50 mg PO DAILY RF: 0 potassium chloride [Klor-Con M20] 20 mEq tablet,ER particles/crystals 20 meq PO DAILY RF: 0
[2021-03-07 16:53] LABS: MANUAL DIFF FLAG NO
[2021-03-07] MEDS: Acetaminophen 325 MG TABLET 975 MG PO (16:54)
[2021-03-07 16:55] LABS: Basophils Percent Auto 0.5 % (0-2); Eosinophils Percent Auto 0.2 % (0-4); Hematocrit 35.4 % (37-47); Hemoglobin 11.6 g/dl (12.0-16.0); Imm Gran Abs Auto 0.01 X10*3/uL (0.00-0.03); Imm Gran Pct Auto 0.2 % (0.0-0.4); Lymphocytes Absolute Auto 0.6 X10*3/uL (1.2-4.9); Lymphocytes Percent Auto 14.4 % (20-40); Mean Corpuscular HGB Conc 32.8 g/dl (31.0-35.0); Mean Corpuscular Hemoglobin 29.5 pg (27.0-33.0); Mean Corpuscular Volume 90.1 fL (80-98); Mean Platelet Volume 10.1 fL (9.4-12.3); Monocytes Absolute Auto 0.1 X10*3/uL (0.1-1.2); Neutrophils Absolute Auto 3.6 X10*3/uL (2.0-8.3); Neutrophils Percent Auto 81.7 % (45-73); Platelet Count 338 X10*3/uL (160-400); Red Blood Count 3.93 X10*6/uL (4.20-5.50); Red Cell Distribution Width 15.3 % (11.0-16.0); White Blood Count 4.4 X10*3/uL (4.8-10.8)
[2021-03-07 17:01] LABS: Prothrombin Time 11.2 SEC (9.9-13.0)
[2021-03-07 17:04] LABS: D Dimer 294 NG/ML; Partial Thromboplastin Time 34.9 SEC (24.1-38.0)
[2021-03-07 17:22] LABS: B Type Natriuretic Peptide 95 pg/mL (<100); Troponin-I High Sensitivity 4.8 ng/L (<3.5-17.0)
[2021-03-07 17:23] LABS: Alanine Aminotransferase 12 U/L (0-31); Albumin Level 4.6 g/dL (3.5-5.0); Alkaline Phosphatase 81 U/L (39-117); Anion Gap 20 (12-20); Aspartate Amino Transferase 26 U/L (5-31); Blood Urea Nitrogen 43 mg/dL (9-16); Calcium 10.3 mg/dL (8.4-10.2); Carbon Dioxide 26 mmol/L (22-29); Chloride 97 mmol/L (96-108); Creatinine Clr Calc Pharmacy 34.7; Estimated Glomerular Filt Rate 30; Glucose Random 142 mg/dL (60-115); Lipase 57 U/L (8-78); Magnesium 1.5 mg/dL (1.6-2.6); Potassium 4.5 mmol/L (3.3-5.1); Sodium 138 mmol/L (135-145); Total Protein 8.1 g/dL (6.5-8.0)
[2021-03-07 18:30] VITALS: BP 169/73; PULSE 68; RESP 18; TEMP 36.8; O2SAT 98
[2021-03-07 20:07] VITALS: BP 146/69; PULSE 85; RESP 18; TEMP 37.2; O2SAT 99
[2021-03-07 20:45] LABS: Troponin-I High Sensitivity 5.6 ng/L (<3.5-17.0)
== END 2021-03-07 21:21 | disposition home or self-care (01) ==
PROVIDERS: Emergency Provider Emergency Medicine Emergency Medical Services
DX: R07.89 Other chest pain (principal); R06.02 Shortness of breath; I13.0 Hypertensive heart and chronic kidney disease with heart failure and stage 1 through stage 4 chronic kidney disease, or unspecified chronic kidney disease; N18.9 Chronic kidney disease, unspecified; Z79.899 Other long term (current) drug therapy; I50.9 Heart failure, unspecified
CPT/HCPCS: 36415; 71046; 80053; 83690; 83735; 83880; 84484; 85025; 85379; 85610; 85730; 99284

== ENCOUNTER → 2021-03-12 13:54 | Outpatient (BNVA) | payer BC, SELFPAY | PROVIDERS: Visit Provider Internal Medicine Cardiovascular Disease | DX: I11.0 Hypertensive heart disease with heart failure (principal); I50.30 Unspecified diastolic (congestive) heart failure | CPT/HCPCS: 93005 ==

== ENCOUNTER 2021-03-16 13:29 | Outpatient (REF) | payer BC, SELFPAY ==
--- NOTE | ~2021-03-16 | US_ITS ---
EXAMINATION: US RETROPERITONEAL LIMITED (RENAL ONLY) RENAL DOPPLER EXAM CLINICAL INFORMATION: Essential hypertension. COMPARISON: Previous renal ultrasound June 2015 TECHNIQUE: Doppler color and painting-scale evaluation of the kidneys and renal arteries were performed including waveform spectral analysis. FINDINGS: RIGHT KIDNEY: 9.8 x 4.4 x 4.8 cm (SAG x AP x TRV). The kidney is normal in size, contour, and echogenicity. Renal cortical thickness is normal. There is a 1.3 cm cyst in the midpole. No calculi. No hydronephrosis. LEFT KIDNEY: 10 x 4.5 x 4.5 cm (SAG x AP x TRV). The kidney is normal in size, contour, and echogenicity. Renal cortical thickness is normal. No calculi or focal parenchymal lesions. No hydronephrosis. Visualized mid abdominal aorta is normal in caliber. Aortic peak systolic velocity is minimally elevated measuring 110 cm/s. Renal artery to aorta ratio cannot be calculated. Right renal artery is patent. Right renal artery peak systolic velocities measure 86 cm/s proximally, 254 cm/s in the midportion and 120 cm/s distally. Resistive indices in the right kidney are slightly elevated measuring 0.7 and 0.9. The right renal vein is patent. There are 2 left renal arteries. The more superior left renal artery peak systolic velocities measure 133, 147 and 52 cm/s proximally, in midportion and distally. More left inferior renal artery peak velocities measure 128 cm/s, 112 cm/s 108 cm/s proximally, in the midportion and distally. Left renal artery resistive indices are normal measuring between 0.7 and 0.8. The left renal vein is patent. US/US renal doppler IMPRESSION: Small right renal cyst otherwise normal renal ultrasound. Increased peak systolic velocity in the right renal artery questionable for stenosis. 2 left renal arteries. Renal artery to aorta ratios cannot be calculated due to elevated aortic peak systolic velocity.
== END 2021-03-16 13:30 | disposition home or self-care (01) ==
LOC: HO.HMGCX 13:29
PROVIDERS: PCP Nurse Practitioner Family; Visit Provider Internal Medicine Cardiovascular Disease
DX: I10 Essential (primary) hypertension (principal)
CPT/HCPCS: 76775; 93975

== ENCOUNTER 2021-04-03 15:31 | Emergency (ER) | payer BC, SELFPAY ==
--- NOTE | 2021-04-03 | ECG_ITS ---
Test Reason : DYSPNEA Blood Pressure : / mmHG Vent. Rate : 082 BPM Atrial Rate : 082 BPM P-R Int : 134 ms QRS Dur : 102 ms QT Int : 428 ms P-R-T Axes : -01 -05 -04 degrees QTc Int : 500 ms Normal sinus rhythm Nonspecific T wave abnormality Prolonged QT Abnormal ECG When compared with ECG of 01-DEC-2020 09:48, Nonspecific T wave abnormality now evident in Anterior leads Referred By: Generic ED Physician Electronically Signed By:NORM THOMSON MD
--- NOTE | ~2021-04-03 | XR_ITS ---
EXAMINATION: XR CHEST CLINICAL INFORMATION: Shortness of breath COMPARISON: Chest radiographs 03/07/2021, 11/30/2020, CTA chest 11/30/2020 TECHNIQUE: 2 views of the chest were obtained. FINDINGS: The lungs are clear. The vascularity is normal. There is no pneumothorax, airspace consolidation, or effusion. The heart is normal in size. Again, there is prominent hiatal hernia as seen on prior exams. The hilar contours are normal. There are multilevel degenerative changes thoracic spine. XR/XR chest 2V IMPRESSION: No acute intrathoracic disease.
[2021-04-03 15:46] VITALS: BP 143/84; PULSE 86; RESP 20; TEMP 37.1; O2SAT 100; BMI 34.3
[2021-04-03 16:55] LABS: MANUAL DIFF FLAG NO
[2021-04-03 16:58] LABS: Basophils Percent Auto 0.7 % (0-2); Eosinophils Percent Auto 0.7 % (0-4); Hematocrit 32.3 % (37-47); Hemoglobin 10.7 g/dl (12.0-16.0); Imm Gran Abs Auto 0.01 X10*3/uL (0.00-0.03); Imm Gran Pct Auto 0.2 % (0.0-0.4); Lymphocytes Absolute Auto 0.8 X10*3/uL (1.2-4.9); Lymphocytes Percent Auto 18.1 % (20-40); Mean Corpuscular HGB Conc 33.1 g/dl (31.0-35.0); Mean Corpuscular Hemoglobin 29.7 pg (27.0-33.0); Mean Corpuscular Volume 89.7 fL (80-98); Mean Platelet Volume 9.6 fL (9.4-12.3); Monocytes Absolute Auto 0.7 X10*3/uL (0.1-1.2); Neutrophils Absolute Auto 2.8 X10*3/uL (2.0-8.3); Neutrophils Percent Auto 65.3 % (45-73); Platelet Count 315 X10*3/uL (160-400); Red Cell Distribution Width 15.6 % (11.0-16.0); White Blood Count 4.3 X10*3/uL (4.8-10.8)
[2021-04-03 17:30] LABS: Anion Gap 18 (12-20); Blood Urea Nitrogen 26 mg/dL (9-16); Calcium 10.6 mg/dL (8.4-10.2); Carbon Dioxide 32 mmol/L (22-29); Chloride 92 mmol/L (96-108); Creatinine Clr Calc Pharmacy 35.5; Estimated Glomerular Filt Rate 31; Glucose Random 108 mg/dL (60-115); Potassium 4.3 mmol/L (3.3-5.1); Sodium 138 mmol/L (135-145)
[2021-04-03 21:09] VITALS: BP 141/87; PULSE 84; RESP 21; TEMP 37.1; O2SAT 100
--- NOTE | 2021-04-03 21:11 | ED.SOB ---
HPI - SOB/Dyspnea General Chief Complaint: Dyspnea Stated Complaint: Diff breathing Time Seen by Provider: 04/03/21 21:11 Source: patient Mode of arrival: ambulatory Limitations: no limitations History of Present Illness HPI Narrative: Patient is 71 years old with history of HFpEF comes to the ER for increased shortness of breath for the last 3 days mostly exertional getting worse now now been at rest patient feels short of breath. Coughing a lot mostly dry cough had a near-syncope episode after that today. No chest pain no fever patient was saturating 100% on room air on arriva patient was admitted earlier here and then was at [facility] admitted on 03/23 chest pain and shortness of breath echo done showed normal LV functions with indeterminate diastolic function patient had CTA chest which was also negative , showed type 3 paraesophageal hernia. Patient states she feels little anxious also. Related Data Home Medications Medication Instructions Recorded Confirmed clonidine HCl 0.1 mg tablet 0.1 mg PO BID 11/17/20 03/12/21 lorazepam 0.5 mg tablet 0.5 mg PO BID PRN 11/17/20 03/12/21 pantoprazole 40 mg tablet,delayed 40 mg PO DAILY 11/17/20 03/12/21 release albuterol 90 mcg/actuation aerosol 90 mcg INHALATION Q4-6H PRN 12/01/20 03/12/21 inhaler ergocalciferol (vitamin D2) 1,250 1 cap PO SA 12/01/20 03/12/21 mcg (50,000 unit) capsule fluticasone propionate 50 2 spray INTRANASAL DAILY 12/01/20 03/12/21 mcg/actuation nasal spray,suspension loratadine 10 mg tablet 10 mg PO DAILY 12/01/20 03/12/21 potassium chloride 20 mEq 20 meq PO DAILY tab 02/23/21 03/12/21 tablet,extended release(part/cryst) (Klor-Con M) atorvastatin 40 mg tablet 40 mg PO DAILY tab 03/12/21 03/12/21 Previous Rx's Medication Instructions Recorded furosemide 20 mg tablet 60 mg PO DAILY 30 Days #90 tab 12/02/20 magnesium oxide 400 mg (241.3 mg 800 mg PO DAILY 30 Days #60 tab 12/02/20 magnesium) tablet epinephrine 0.3 mg/0.3 mL 0.3 mg IM Q20M PRN #2 ea 02/23/21 injection, auto-injector fluticasone 250 mcg-salmeterol 50 1 inh INHALATION BID #60 ea 02/23/21 mcg/dose blistr powdr for inhalation ([place] Inhub) montelukast 10 mg tablet 10 mg PO BEDTIME #30 tab 02/23/21 spironolactone 25 mg tablet 25 mg PO DAILY #30 tab 02/27/21 prednisone 20 mg tablet 40 mg PO DAILY 5 Days #10 tab 02/28/21 fluticasone propionate 110 2 inh INHALATION BID #12 g 03/02/21 mcg/actuation HFA aerosol inhaler (Flovent HFA) carvedilol 25 mg tablet 37.5 mg PO BID #90 tab 03/12/21 losartan 50 mg tablet 50 mg PO BID #60 tab 03/12/21 lorazepam 0.5 mg tablet (Ativan) 0.5 mg PO BEDTIME PRN #14 tab 04/03/21 Allergies Allergy/AdvReac Type Severity Reaction Status Date / Time Penicillins Allergy Unknown UNKNOWN Verified 02/23/21 12:15 levofloxacin [From Levaquin] Allergy Unknown Verified 02/23/21 12:15 paroxetine [From Paxil] Allergy Unknown Verified 02/23/21 12:15 prochlorperazine Allergy Unknown Verified 02/23/21 12:15 [From Compazine] shrimp Allergy Anaphylaxis Verified 02/23/21 12:15 compazine Allergy Mild hives Uncoded 02/19/21 13:43 seasonal and environmental Allergy Mild hives Uncoded 02/19/21 13:43 Compazine Allergy Unknown facial Uncoded 02/19/21 13:43 numbness shrimp & lobster Allergy Unknown hives Uncoded 02/19/21 13:43 tripolyphosphate Allergy Unknown hives Uncoded 02/19/21 13:43 Review of Systems Review of Systems: Yes all other systems are reviewed and are negative PMFSH Past Medical History Medical History (HFpEF) heart failure with preserved ejection fraction Arthritis Asthma Chronic kidney disease (CKD) stage G3a/A1, moderately decreased glomerular filtration rate (GFR) between 45-59 mL/min/1.73 square meter and albuminuria creatinine ratio less than 30 mg/g COPD (chronic obstructive pulmonary disease) Essential hypertension Gout HTN (hypertension) Hypercholesteremia Inguinal hernia Other and unspecified hyperlipidemia Sliding hiatal hernia Family History Family History Father CHF (congestive heart failure) Mother CHF (congestive heart failure) Social History Social History Household Members: Family Household Members Other:: mother Housing: House Do you presently have visiting nurse or other home services: No Patient Tobacco Use Status: Former Tobacco user Second Hand Smoke Exposure: No Use of substances other than those prescribed or required for medical reasons: No Advance Directives: No Advance Directives Information Provided: No service: No Physical Exam Vital Signs: Vital Signs: Last Vital Signs Temp 98.4 F 04/03/21 22:04 Pulse 78 04/03/21 22:04 Resp 14 04/03/21 22:04 BP 132/72 04/03/21 22:04 Pulse Ox 100 04/03/21 22:04 Body Mass Index 34.3 Appearance: Alert. Oriented X3. No acute distress. Eyes: No pallor or icterus ENT: Pharynx normal. Oral Mucosa moist Neck: Normal inspection. Neck supple. CVS: Normal heart rate and rhythm. Pulses normal. Respiratory: No respiratory distress. Equal air entry bilateral, no wheezing/rales/rhonchi Abdomen: Soft and nontender. Bowel sounds are present, no mass palpable, no CVA tenderness Skin: Skin warm and dry. Normal skin color. Normal skin turgor. Extremities: Nonpitting ++ lower extremity edema. No calf tenderness Neuro: Oriented X 3. No motor deficit. No sensory deficit MDM - SOB/Dyspnea MDM Narrative Medical decision making narrative: Patient's subjective shortness of breath with anxiety saturating 94% when relaxed felt better after taking Ativan in the ER patient had a detailed workup done at [facility] last month and here also labs are stable we will discharge patient home Medical Records Attestation: I reviewed the patient's medical records. Lab Data Attestation: I reviewed the patient's lab results. Result diagrams: 04/03/21 16:43 04/03/21 16:43 Labs: Lab Results 04/03/21 04/03/21 04/03/21 Range/Units 16:43 16:43 16:43 WBC 4.3 L (4.8-10.8) X10*3/uL RBC 3.60 L (4.20-5.50) X10*6/uL Hgb 10.7 L (12.0-16.0) g/dl Hct 32.3 L (37-47) % MCV 89.7 (80-98) fL MCH 29.7 (27.0-33.0) pg MCHC 33.1 (31.0-35.0) g/dl RDW 15.6 (11.0-16.0) % Plt Count 315 (160-400) X10*3/uL MPV 9.6 (9.4-12.3) fL Immature Gran % (Auto) 0.2 (0.0-0.4) % Neut % (Auto) 65.3 (45-73) % Lymph % (Auto) 18.1 L (20-40) % [place] % (Auto) 15.0 H (2-11) % Eos % (Auto) 0.7 (0-4) % Baso % (Auto) 0.7 (0-2) % Lymph # (Auto) 0.8 L (1.2-4.9) X10*3/uL [place] # (Auto) 0.7 (0.1-1.2) X10*3/uL Eos # (Auto) 0.0 (0.0-0.4) X10*3/uL Baso # (Auto) 0.0 (0.0-0.2) X10*3/uL Abs Immat Gran (auto) 0.01 (0.00-0.03) X10*3/uL Absolute Neuts (auto) 2.8 (2.0-8.3) X10*3/uL Absolute Nucleated RBC 0.000 (0.0-0.012) X10*3/uL Nucleated RBC % (auto) 0.0 (0.0-0.2) /100WBC Sodium 138 (135-145) mmol/L Potassium 4.3 (3.3-5.1) mmol/L Chloride 92 L (96-108) mmol/L Carbon Dioxide 32 H (22-29) mmol/L Anion Gap 18 (12-20) BUN 26 H (9-16) mg/dL Creatinine 1.63 H (0.5-1.4) mg/dL Estim Creat Clear Calc 35.5 Estimated GFR 31 Random Glucose 108 (60-115) mg/dL Calcium 10.6 H (8.4-10.2) mg/dL Troponin I High Sens 9.0 D (<3.5-17.0) ng/L B-Natriuretic Peptide Cancelled ECG Data Attestation: I personally reviewed and interpreted this ECG as follows: Interpretation: Normal sinus rhythm heart rate 82 beats per minute nonspecific T-wave changes no acute change from previous EKG Discharge Plan Discharge Clinical Impression: Chronic dyspnea, Anxiety Patient Disposition: Home, Self-Care Instructions: Dyspnea (ED), Anxiety (ED) Additional Instructions: Continue medications and inhaler Anxiety medication at night as needed Prescriptions: New lorazepam [Ativan] 0.5 mg tablet 0.5 mg PO BEDTIME PRN (Reason: anxiety) Qty: 14 RF: 0 No Action spironolactone 25 mg tablet 25 mg PO DAILY Qty: 30 RF: 3 prednisone 20 mg tablet 40 mg PO DAILY 5 Days Qty: 10 RF: 0 Flovent HFA 110 mcg/actuation HFA aerosol inhaler 2 inh inhalation BID Qty: 12 RF: 1 albuterol 90 mcg/actuation Aerosol 90 mcg INHALATION Q4-6H PRN (Reason: Dyspnea) RF: 0 ergocalciferol (vitamin D2) 1,250 mcg (50,000 unit) capsule 1 cap PO SA RF: 0 fluticasone propionate 50 mcg/actuation [place],Suspension 2 spray INTRANASAL DAILY RF: 0 loratadine 10 mg Tablet 10 mg PO DAILY RF: 0 furosemide 20 mg Tablet 60 mg PO DAILY 30 Days Qty: 90 RF: 0 magnesium oxide 400 mg (241.3 mg magnesium) Tablet 800 mg PO DAILY 30 Days Qty: 60 RF: 0 fluticasone propion-salmeterol [[place]ix[place] Inhub] 250-50 mcg/dose blister with device 1 inh inhalation BID Qty: 60 RF: 1 montelukast 10 mg tablet 10 mg PO BEDTIME Qty: 30 RF: 1 epinephrine 0.3 mg/0.3 mL auto-injector 0.3 mg IM Q20M PRN (Reason: anaphylaxis) Qty: 2 RF: 0 pantoprazole 40 mg tablet,delayed release (DR/EC) 40 mg PO DAILY RF: 0 lorazepam 0.5 mg tablet 0.5 mg PO BID PRNRF: 0 clonidine HCl 0.1 mg tablet 0.1 mg PO BID RF: 0 atorvastatin 40 mg tablet 40 mg PO DAILY RF: 0 potassium chloride [Klor-Con M20] 20 mEq tablet,ER particles/crystals 20 meq PO DAILY RF: 0 carvedilol 25 mg tablet 37.5 mg PO BID Qty: 90 RF: 2 losartan 50 mg tablet 50 mg PO BID Qty: 60 RF: 4 Interventions: ED Discharge Assessment Last Done: 04/03/21 22:50 Discharge Date/Time: 04/03/21 22:57
[2021-04-03] MEDS: LORazepam 1 MG TABLET PO (21:45)
[2021-04-03 22:04] VITALS: BP 132/72; PULSE 78; RESP 14; TEMP 36.9; O2SAT 100
== END 2021-04-03 22:57 | disposition home or self-care (01) ==
PROVIDERS: Emergency Provider Internal Medicine; PCP Nurse Practitioner Family
DX: R06.09 Other forms of dyspnea (principal); F41.9 Anxiety disorder, unspecified; I10 Essential (primary) hypertension
CPT/HCPCS: 36415; 71046; 80048; 84484; 85025; 93005; 99283; 99285

== ENCOUNTER 2021-04-24 13:59 | Outpatient (REF) | payer BC, SELFPAY ==
[2021-04-24 14:52] LABS: MANUAL DIFF FLAG NO
[2021-04-24 15:05] LABS: Basophils Percent Auto 0.8 % (0-2); Eosinophils Absolute Auto 0.2 X10*3/uL (0.0-0.4); Eosinophils Percent Auto 2.8 % (0-4); Hematocrit 34.5 % (37-47); Hemoglobin 11.1 g/dl (12.0-16.0); Imm Gran Abs Auto 0.04 X10*3/uL (0.00-0.03); Imm Gran Pct Auto 0.8 % (0.0-0.4); Lymphocytes Absolute Auto 1.6 X10*3/uL (1.2-4.9); Lymphocytes Percent Auto 30.9 % (20-40); Mean Corpuscular HGB Conc 32.2 g/dl (31.0-35.0); Mean Corpuscular Hemoglobin 30.7 pg (27.0-33.0); Mean Corpuscular Volume 95.6 fL (80-98); Mean Platelet Volume 10.1 fL (9.4-12.3); Monocytes Absolute Auto 0.7 X10*3/uL (0.1-1.2); Monocytes Percent Auto 13.4 % (2-11); Neutrophils Absolute Auto 2.7 X10*3/uL (2.0-8.3); Neutrophils Percent Auto 51.3 % (45-73); Platelet Count 328 X10*3/uL (160-400); Red Blood Count 3.61 X10*6/uL (4.20-5.50); White Blood Count 5.3 X10*3/uL (4.8-10.8)
[2021-04-24 15:15] LABS: Anion Gap 12 (12-20); Blood Urea Nitrogen 23 mg/dL (9-16); Calcium 9.3 mg/dL (8.4-10.2); Carbon Dioxide 27 mmol/L (22-29); Chloride 105 mmol/L (96-108); Estimated Glomerular Filt Rate 39; Magnesium 2.1 mg/dL (1.6-2.6); Potassium 5.1 mmol/L (3.3-5.1); Sodium 139 mmol/L (135-145)
== END 2021-04-24 14:00 | disposition home or self-care (01) ==
LOC: HO.LAB 13:59
PROVIDERS: PCP Nurse Practitioner Family; Visit Provider Internal Medicine Nephrology
DX: I10 Essential (primary) hypertension (principal); R60.1 Generalized edema; D64.9 Anemia, unspecified
CPT/HCPCS: 36415; 80051; 82310; 82565; 83735; 84520; 85025

== ENCOUNTER 2021-04-25 17:01 | Outpatient (REF) | payer BC, SELFPAY ==
[2021-04-25 17:13] LABS: Glucose Urine UA NEG (NEG); Leukocyte Esterase Urine NEG (NEG); Nitrite Urine NEG (NEG); Urine Blood NEG (NEG); Urine Ketones NEG (NEG); Urine Protein NEG (NEG-TRACE)
[2021-04-25 17:14] LABS: Appearance Urine CLEAR; Color Urine YELLOW
[2021-04-25 17:25] LABS: RBC Urine 0 /HPF (0); Renal Epithelial Cells Urine 1+ /LPF
[2021-04-25 17:30] LABS: Creatinine Urine 99.01 mg/dL; Total Protein Urine Random < 7 mg/dL (<12)
== END 2021-04-25 17:02 | disposition home or self-care (01) ==
LOC: HO.LNP 17:01
PROVIDERS: Visit Provider Internal Medicine Nephrology
DX: I10 Essential (primary) hypertension (principal); R60.1 Generalized edema; D64.9 Anemia, unspecified
CPT/HCPCS: 81001; 84156; 87086

== ENCOUNTER 2021-06-04 12:17 | Emergency (ER) | payer BC, SELFPAY ==
--- NOTE | ~2021-06-04 | CT_ITS ---
EXAMINATION: CT HEAD WITHOUT CONTRAST CLINICAL INFORMATION: Head injury COMPARISON: Previous head CT April 2020 TECHNIQUE: Contiguous axial imaging was performed from the skull base to vertex without intravenous administration of contrast. This CT examination was performed using dose optimization techniques as appropriate, variously including the following: *Automated exposure control *Adjustment of mA and/or kV according to patient size (this includes techniques or standardized protocols for targeted exams where dose is matched to indication/reason for exam; i.e. extremities or head) *Use of iterative reconstruction technique DLP: 743 mGy-cm FINDINGS: There is no evidence of acute intracranial hemorrhage or territorial infarction. No abnormal mass effect or midline shift is seen. Goldman to white matter differentiation is well preserved. No extra-axial fluid collections are identified. The ventricles are normal in size. There is no abnormal attenuation within the brain parenchyma. There are bilateral nasal bone fractures of uncertain age. No overlying soft tissue swelling is seen. No other fracture is seen. The mastoid air cells and visualized portions of the paranasal sinuses are well aerated. CT/CT head/brain wo con IMPRESSION: No acute intracranial findings.
--- NOTE | ~2021-06-04 | CT_ITS ---
EXAMINATION: CT FACIAL BONES WITHOUT CONTRAST CLINICAL INFORMATION: Head injury COMPARISON: Head CT from the same day TECHNIQUE: Axial images through the facial bones without contrast. Sagittal and coronal reconstructions on the technologist workstation were performed. This CT examination was performed using dose optimization techniques as appropriate, variously including the following: *Automated exposure control *Adjustment of mA and/or kV according to patient size (this includes techniques or standardized protocols for targeted exams where dose is matched to indication/reason for exam; i.e. extremities or head) *Use of iterative reconstruction technique DLP: 264 mGy-cm FINDINGS: There are bilateral nasal bone fractures of uncertain age. No other fracture is seen. The paranasal sinuses, mastoid air cells and middle ears are clear. The temporomandibular joints are normal. The mastoid air cells and middle ears are clear. The orbits are normal. Visualized intracranial structures are normal. Soft tissues are normal. CT/CT facial bones wo con IMPRESSION: Bilateral nasal bone fractures of uncertain age. No other facial bone fracture seen.
[2021-06-04 12:48] VITALS: BP 134/62; PULSE 68; RESP 18; TEMP 35.7; O2SAT 100; BMI 36.8
--- NOTE | 2021-06-04 13:47 | ED.FALL ---
HPI - Fall General Chief Complaint: Fall Stated Complaint: fall - head injury Time Seen by Provider: 06/04/21 13:35 Source: patient Mode of arrival: ambulatory Limitations: no limitations History of Present Illness HPI Narrative: 71-year-old female here with left-sided headache. Patient tells me that on Friday of last week she had a mechanical fall striking her head on the tile floor. There was no loss of consciousness. She reports that she has had intermittent headaches which are persistent since the fall which brought her to Urgent Care today. She was then referred into the emergency department for further evaluation. No vision changes, photophobia, nausea, vomiting, dizziness or neck pain. Related Data Home Medications Medication Instructions Recorded Confirmed pantoprazole 40 mg tablet,delayed 40 mg PO DAILY 11/17/20 03/12/21 release albuterol 90 mcg/actuation aerosol 90 mcg INHALATION Q4-6H PRN 12/01/20 03/12/21 inhaler ergocalciferol (vitamin D2) 1,250 1 cap PO SA 12/01/20 03/12/21 mcg (50,000 unit) capsule fluticasone propionate 50 2 spray INTRANASAL DAILY 12/01/20 03/12/21 mcg/actuation nasal spray,suspension atorvastatin 40 mg tablet 40 mg PO DAILY tab 03/12/21 03/12/21 carvedilol 12.5 mg tablet 12.5 mg PO BID 04/28/21 Previous Rx's Medication Instructions Recorded magnesium oxide 400 mg (241.3 mg 800 mg PO DAILY 30 Days #60 tab 12/02/20 magnesium) tablet epinephrine 0.3 mg/0.3 mL 0.3 mg IM Q20M PRN #2 ea 02/23/21 injection, auto-injector fluticasone 250 mcg-salmeterol 50 1 inh INHALATION BID #60 ea 02/23/21 mcg/dose blistr powdr for inhalation (Wixela Inhub) fluticasone propionate 110 2 inh INHALATION BID #12 g 03/02/21 mcg/actuation HFA aerosol inhaler (Flovent HFA) lorazepam 0.5 mg tablet (Ativan) 0.5 mg PO BEDTIME PRN #14 tab 04/03/21 cyclobenzaprine 10 mg tablet 10 mg PO BEDTIME #14 tab 04/28/21 Allergies Allergy/AdvReac Type Severity Reaction Status Date / Time Penicillins Allergy Unknown UNKNOWN Verified 05/12/21 09:44 levofloxacin [From Levaquin] Allergy Unknown Verified 05/12/21 09:44 paroxetine [From Paxil] Allergy Unknown Verified 05/12/21 09:44 prochlorperazine Allergy Unknown Verified 05/12/21 09:44 [From Compazine] shrimp Allergy Anaphylaxis Verified 05/12/21 09:44 compazine Allergy Mild hives Uncoded 02/19/21 13:43 seasonal and environmental Allergy Mild hives Uncoded 02/19/21 13:43 Compazine Allergy Unknown facial Uncoded 02/19/21 13:43 numbness shrimp & lobster Allergy Unknown hives Uncoded 02/19/21 13:43 tripolyphosphate Allergy Unknown hives Uncoded 02/19/21 13:43 Review of Systems Review of Systems: Yes all other systems are reviewed and are negative Constitutional: Constitutional: Reports no additional constitutional complaints, Denies body ache(s), Denies chills, Denies fever(s), Reports headache(s) and Denies weakness Eyes: Eyes: Reports no additional eye complaints and Denies change in vision ENT: Reports system reviewed and no additional complaints, except as documented, Denies dizziness, Reports headache(s), Denies nasal congestion, Denies nasal discharge and Denies neck pain Cardiovascular: Cardiovascular: Reports no additional cardiovascular complaints, Denies chest pain, Denies leg edema and Denies dyspnea Respiratory: Respiratory: Reports no additional respiratory complaints, Denies cough and Denies dyspnea Gastrointestinal: Gastrointestinal: Reports no additional gastrointestinal complaints, Denies abdominal pain, Denies diarrhea, Denies nausea and Denies vomiting Genitourinary: Genitourinary: Reports no additional female genitourinary complaints and Denies urinary incontinence Musculoskeletal: Musculoskeletal: Reports no additional musculoskeletal complaints, Denies back pain, Denies arthralgias, Denies joint swelling, Denies neck pain, Denies numbness and Denies tingling Integumentary/Breasts: Skin/Breast: Reports system reviewed and no additional complaints, except as docu and Denies rash Neurologic: Reports system reviewed and no additional complaints, except as documented, Denies Abnormal speech present, Denies dizziness, Reports headache(s), Denies numbness, Denies tingling and Denies weakness PMFSH Past Medical History Attestation statement: The following information was validated with the patient. Source: old records reviewed and nursing notes reviewed Medical History (HFpEF) heart failure with preserved ejection fraction Arthritis Asthma Chronic kidney disease (CKD) stage G3a/A1, moderately decreased glomerular filtration rate (GFR) between 45-59 mL/min/1.73 square meter and albuminuria creatinine ratio less than 30 mg/g COPD (chronic obstructive pulmonary disease) Essential hypertension Gout HTN (hypertension) Hypercholesteremia Inguinal hernia Other and unspecified hyperlipidemia Sliding hiatal hernia Family History Family History Father CHF (congestive heart failure) Mother CHF (congestive heart failure) Social History Social History Household Members: Family Household Members Other:: mother Housing: House Do you presently have visiting nurse or other home services: No Patient Tobacco Use Status: Former Tobacco user Second Hand Smoke Exposure: No Advance Directives: No Advance Directives Information Provided: No service: No Physical Exam Vital Signs: Vital Signs: Last Vital Signs Temp 96.2 F L 06/04/21 12:48 Pulse 68 06/04/21 12:48 Resp 18 06/04/21 12:48 BP 134/62 06/04/21 12:48 Pulse Ox 100 06/04/21 12:48 Body Mass Index 36.8 Const: General: cooperative, healthy appearing, comfortable and no acute distress Orientation/consciousness: patient oriented x3 Limitations: no limitations HENMT: Head: Yes normal to inspection Head images: 1. Ecchymosis, tenderness No crepitus or bogginess Ears: hearing grossly normal bilaterally and TM's normal bilaterally General nose exam: Normal external nose present Face and sinus: Yes normal facial exam Mouth: Normal oral and palatal mucosa present Throat: Yes posterior oropharynx normal, Yes tonsils normal and Yes uvula midline Eyes: General: appearance normal, both eyes and all related structures Pupils: Equal, round and reactive pupils present Neck: Neck: Yes normal visual inspection Chest: Chest palpation & inspection: normal inspection of the chest Resp: Effort & Inspection: normal respiratory effort Auscultation: clear to auscultation bilaterally Cardio: Rate: regular rate Rhythm: regular rhythm Peripheral pulses: Peripheral pulses 2+ throughout GI: Inspection: Yes normal to inspection Palpation (GI): Soft to palpation and nontender Auscultation: normal bowel sounds Back/Spine/Pelvis: Thoracic/Lumbar Spine: thoracic and lumbar spine normal to inspection Skin: General skin exam: no rashes or lesions noted Neuro: General: patient oriented x3, no focal motor deficits and normal sensation to monofilament Cranial nerves: Yes CN's II-XII intact bilaterally, Yes Equal, round and reactive pupils present, Yes Bilaterally intact EOM present, Yes Nystagmus not present, Yes Normal facial strength present and Yes Midline tongue present Cognition (Neuro): normal cognition Speech: No Abnormal speech present Gait exam (Neuro): Normal gait present Motor exam (neuro): 5/5 motor strength present throughout Sensory Exam: Normal double simultaneous stimulation for sensation Extrem: General: Yes normal to inspection Course Course Course Narrative: 71-year-old female here with persistent headache after a mechanical fall last Friday Normal neuro exam Will check CT head and face 1558-CT scan shows bilateral nasal fractures but no other facial fractures. CT brain normal. Patient tells me she had a previous fall from syncope several months ago and she believes this is why she has the nasal fracture. Reviewed findings with her. Likely mild concussion. Reviewed worrisome signs and symptoms of when to return to the emergency department. Comfortable discharge home. MDM - Fall Medical Records Attestation: I reviewed the patient's medical records. Lab Data Attestation: I reviewed the patient's lab results. Imaging Data Ct facial bones/head: Attestation: I personally reviewed and interpreted this imaging study as follows: Radiologist's impression: FINDINGS: There are bilateral nasal bone fractures of uncertain age. No other fracture is seen. The paranasal sinuses, mastoid air cells and middle ears are clear. The temporomandibular joints are normal. The mastoid air cells and middle ears are clear. The orbits are normal. Visualized intracranial structures are normal. Soft tissues are normal. CT/CT facial bones wo con IMPRESSION: Bilateral nasal bone fractures of uncertain age. No other facial bone fracture seen. FINDINGS: There is no evidence of acute intracranial hemorrhage or territorial infarction. No abnormal mass effect or midline shift is seen. Goldman to white matter differentiation is well preserved. No extra-axial fluid collections are identified. The ventricles are normal in size. There is no abnormal attenuation within the brain parenchyma. There are bilateral nasal bone fractures of uncertain age. No overlying soft tissue swelling is seen. No other fracture is seen. The mastoid air cells and visualized portions of the paranasal sinuses are well aerated. Discharge Plan Discharge Clinical Impression: Concussion without loss of consciousness, Closed fracture nasal bone Patient Disposition: Home, Self-Care Instructions: Nasal Fracture (ED), Concussion (ED) Additional Instructions: Limit screen time Motrin or Tylenol for pain as needed Follow-up with primary care Prescriptions: No Action Flovent HFA 110 mcg/actuation HFA aerosol inhaler 2 inh inhalation BID Qty: 12 RF: 1 albuterol 90 mcg/actuation Aerosol 90 mcg INHALATION Q4-6H PRN (Reason: Dyspnea) RF: 0 ergocalciferol (vitamin D2) 1,250 mcg (50,000 unit) capsule 1 cap PO SA RF: 0 fluticasone propionate 50 mcg/actuation [place],Suspension 2 spray INTRANASAL DAILY RF: 0 magnesium oxide 400 mg (241.3 mg magnesium) Tablet 800 mg PO DAILY 30 Days Qty: 60 RF: 0 lorazepam [Ativan] 0.5 mg tablet 0.5 mg PO BEDTIME PRN (Reason: anxiety) Qty: 14 RF: 0 fluticasone propion-salmeterol [Wixela Inhub] 250-50 mcg/dose blister with device 1 inh inhalation BID Qty: 60 RF: 1 epinephrine 0.3 mg/0.3 mL auto-injector 0.3 mg IM Q20M PRN (Reason: anaphylaxis) Qty: 2 RF: 0 pantoprazole 40 mg tablet,delayed release (DR/EC) 40 mg PO DAILY RF: 0 atorvastatin 40 mg tablet 40 mg PO DAILY RF: 0 carvedilol 12.5 mg tablet 12.5 mg PO BID RF: 0 cyclobenzaprine 10 mg tablet 10 mg PO BEDTIME Qty: 14 RF: 0 Referrals: Ana Lilia Espinoza NP [Primary Care Provider] - 2 days Interventions: LWBS Worksheet Last Done: 06/04/21 13:01 ED Discharge Assessment Last Done: 06/04/21 15:52 Discharge Date/Time: 06/04/21 15:53
== END 2021-06-04 15:53 | disposition home or self-care (01) ==
PROVIDERS: Emergency Provider Emergency Medicine; PCP Nurse Practitioner Family
DX: S06.0X0A Concussion without loss of consciousness, initial encounter (principal); S02.2XXA Fracture of nasal bones, initial encounter for closed fracture; I13.0 Hypertensive heart and chronic kidney disease with heart failure and stage 1 through stage 4 chronic kidney disease, or unspecified chronic kidney disease; I50.30 Unspecified diastolic (congestive) heart failure; N18.31 Chronic kidney disease, stage 3a; J44.9 Chronic obstructive pulmonary disease, unspecified; Z79.899 Other long term (current) drug therapy; W18.30XA Fall on same level, unspecified, initial encounter; Y93.9 Activity, unspecified; Y92.9 Unspecified place or not applicable; Y99.9 Unspecified external cause status
CPT/HCPCS: 70450; 70486; 99283; 99284

== ENCOUNTER 2021-11-06 12:20 | Emergency (ER) | payer BC, SELFPAY ==
--- NOTE | 2021-11-06 | ECG_ITS ---
Test Reason : CP Blood Pressure : / mmHG Vent. Rate : 079 BPM Atrial Rate : 079 BPM P-R Int : 142 ms QRS Dur : 098 ms QT Int : 388 ms P-R-T Axes : -21 -12 -02 degrees QTc Int : 444 ms Sinus rhythm with Premature atrial complexes Minimal voltage criteria for LVH, may be normal variant ( Evgeny product ) Borderline ECG When compared with ECG of 03-APR-2021 16:47, Premature atrial complexes are now Present Nonspecific T wave abnormality, improved in Anterior leads QT has shortened Referred By: Generic ED Physician Electronically Signed By:BREA NGUYEN
--- NOTE | ~2021-11-06 | XR_ITS ---
EXAMINATION: XR CHEST CLINICAL INFORMATION: Chest pain COMPARISON: Previous chest x-ray most recent March 2021 TECHNIQUE: 2 views of the chest were obtained. FINDINGS: The cardiac silhouette does not appear enlarged. There is an air-fluid level behind the heart suggestive of an esophageal hernia. Hilar and mediastinal contours are otherwise unremarkable. The lungs are clear. There is no pleural effusion or pneumothorax. There are degenerative changes of the spine. XR/XR chest 2V IMPRESSION: No evidence for acute disease in the chest. Esophageal hernia similar to previous exams.
[2021-11-06 12:42] VITALS: BP 113/65; PULSE 81; RESP 20; TEMP 36.8; O2SAT 100; BMI 38.4
[2021-11-06 13:27] LABS: MANUAL DIFF FLAG NO
[2021-11-06 13:30] LABS: Basophils Percent Auto 0.5 % (0-2); Eosinophils Absolute Auto 0.1 X10*3/uL (0.0-0.4); Eosinophils Percent Auto 1.9 % (0-4); Hematocrit 27.6 % (37.0-47.0); Hemoglobin 8.4 g/dl (12.0-16.0); Imm Gran Abs Auto 0.02 X10*3/uL (0.00-0.03); Imm Gran Pct Auto 0.3 % (0.0-0.4); Lymphocytes Absolute Auto 1.2 X10*3/uL (1.2-4.9); Lymphocytes Percent Auto 18.7 % (20-40); Mean Corpuscular HGB Conc 30.4 g/dl (31.0-35.0); Mean Corpuscular Volume 85.4 fL (80.0-98.0); Mean Platelet Volume 9.3 fL (9.4-12.3); Monocytes Absolute Auto 0.6 X10*3/uL (0.1-1.2); Monocytes Percent Auto 9.6 % (2-11); Neutrophils Absolute Auto 4.4 x10*3/uL (2.0-8.3); Platelet Count 316 X10*3/uL (160-400); Red Blood Count 3.23 X10*6/uL (4.20-5.50); Red Cell Distribution Width 17.5 % (11.0-16.0); White Blood Count 6.4 X10*3/uL (4.8-10.8)
[2021-11-06 13:45] LABS: Alanine Aminotransferase 17 U/L (0-31); Albumin Level 4.1 g/dL (3.5-5.0); Alkaline Phosphatase 86 U/L (39-117); Anion Gap 16 (12-20); Aspartate Amino Transferase 31 U/L (5-31); Bilirubin Total 0.3 mg/dL (0.0-1.0); Blood Urea Nitrogen 21 mg/dL (9-16); Calcium 9.8 mg/dL (8.4-10.2); Carbon Dioxide 27 mmol/L (22-29); Chloride 102 mmol/L (96-108); Creatinine Clr Calc Pharmacy 49.6; Estimated Glomerular Filt Rate 43; Glucose Random 95 mg/dL (60-115); Potassium 4.3 mmol/L (3.3-5.1); Sodium 141 mmol/L (135-145)
[2021-11-06 13:48] LABS: B Type Natriuretic Peptide 135 pg/mL (<100)
[2021-11-06 15:24] VITALS: BP 161/80; PULSE 81; RESP 18; TEMP 37.1; O2SAT 100
--- NOTE | 2021-11-06 15:29 | ED.CHESTPAIN ---
HPI - Chest Pain General Chief Complaint: Chest Pain Stated Complaint: heaviness in chest/SOB Time Seen by Provider: 11/06/21 15:29 Source: patient Mode of arrival: ambulatory Limitations: no limitations History of Present Illness HPI narrative: patient has been wheezing for weeks, now with chest heaviness. Yesterday the wheezing was worse. This morning she had chest heaviness with rapid heartbeat. One year ago she had the same symptoms, she was found to have low potassium and low magnesium. At the same time she was found to have diastolic dysfunction. MD complaint: chest heaviness Onset (ago): day(s) Timing of current episode: episodic Onset: during rest Severity: moderate Quality: heaviness Relieving factors: nothing Risk Factors Coronary artery disease risk factors: hypertension Related Data On Oral Contraceptives: No Home Medications Medication Instructions Recorded Confirmed pantoprazole 40 mg tablet,delayed 40 mg PO DAILY 11/17/20 03/12/21 release albuterol 90 mcg/actuation aerosol 90 mcg INHALATION Q4-6H PRN 12/01/20 03/12/21 inhaler ergocalciferol (vitamin D2) 1,250 1 cap PO SA 12/01/20 03/12/21 mcg (50,000 unit) capsule fluticasone propionate 50 2 spray INTRANASAL DAILY 12/01/20 03/12/21 mcg/actuation nasal spray,suspension atorvastatin 40 mg tablet 40 mg PO DAILY tab 03/12/21 03/12/21 carvedilol 12.5 mg tablet 12.5 mg PO BID 04/28/21 Previous Rx's Medication Instructions Recorded magnesium oxide 400 mg (241.3 mg 800 mg PO DAILY 30 Days #60 tab 12/02/20 magnesium) tablet epinephrine 0.3 mg/0.3 mL 0.3 mg (0.3 mL) IM Q20M PRN #2 ea 02/23/21 injection, auto-injector fluticasone 250 mcg-salmeterol 50 1 inh INHALATION BID #60 ea 02/23/21 mcg/dose blistr powdr for inhalation (Wixela Inhub) fluticasone propionate 110 2 inh INHALATION BID #12 g 03/02/21 mcg/actuation HFA aerosol inhaler (Flovent HFA) lorazepam 0.5 mg tablet (Ativan) 0.5 mg PO BEDTIME PRN #14 tab 04/03/21 cyclobenzaprine 10 mg tablet 10 mg PO BEDTIME #14 tab 04/28/21 Allergies Allergy/AdvReac Type Severity Reaction Status Date / Time Penicillins Allergy Unknown UNKNOWN Verified 11/06/21 12:41 levofloxacin [From Levaquin] Allergy Unknown Verified 11/06/21 12:41 paroxetine [From Paxil] Allergy Unknown Verified 11/06/21 12:41 prochlorperazine Allergy Unknown Verified 11/06/21 12:41 [From Compazine] shrimp Allergy Anaphylaxis Verified 11/06/21 12:41 compazine Allergy Mild hives Uncoded 02/19/21 13:43 seasonal and environmental Allergy Mild hives Uncoded 02/19/21 13:43 Compazine Allergy Unknown facial Uncoded 02/19/21 13:43 numbness shrimp & lobster Allergy Unknown hives Uncoded 02/19/21 13:43 tripolyphosphate Allergy Unknown hives Uncoded 02/19/21 13:43 Review of Systems Constitutional: Constitutional: Reports no additional constitutional complaints Eyes: Eyes: Reports no additional eye complaints ENT: Denies dizziness Cardiovascular: Cardiovascular: Reports no additional cardiovascular complaints Respiratory: Respiratory: Reports as per HPI Gastrointestinal: Gastrointestinal: Reports no additional gastrointestinal complaints Genitourinary: Genitourinary: Reports no additional female genitourinary complaints Musculoskeletal: Musculoskeletal: Reports no additional musculoskeletal complaints Integumentary/Breasts: Skin/Breast: Denies rash Neurologic: Reports system reviewed and no additional complaints, except as documented, Denies dizziness and Denies Sensory deficit (Neuro) Psychiatric: Psychiatric: Denies anxiety [facility], [facility] Past Medical History Medical History (HFpEF) heart failure with preserved ejection fraction Arthritis Asthma Chronic kidney disease (CKD) stage G3a/A1, moderately decreased glomerular filtration rate (GFR) between 45-59 mL/min/1.73 square meter and albuminuria creatinine ratio less than 30 mg/g COPD (chronic obstructive pulmonary disease) Essential hypertension Gout HTN (hypertension) Hypercholesteremia Inguinal hernia Other and unspecified hyperlipidemia Sliding hiatal hernia Family History Family History Father CHF (congestive heart failure) Mother CHF (congestive heart failure) Social History Social History Household Members: Family Household Members Other:: mother Housing: House Do you presently have visiting nurse or other home services: No Patient Tobacco Use Status: Former Tobacco user Second Hand Smoke Exposure: No Advance Directives: Yes Advance Directives on File: Yes Advance Directives Date on File: 12/04/20 service: No Physical Exam Vital Signs: Vital Signs: Last Vital Signs Temp 98.7 F 11/06/21 15:24 Pulse 81 11/06/21 15:24 Resp 18 11/06/21 15:24 BP 161/80 H 11/06/21 15:24 Pulse Ox 100 11/06/21 15:24 BMI result Body Mass Index 38.4 Const: General: healthy appearing Nutritional Appearance: average body habitus Orientation/consciousness: oriented to person and patient oriented x3 Limitations: no limitations HENMT: Head: Yes normal to inspection Ears: external ears normal General nose exam: Normal external nose present Mouth: Normal oral and palatal mucosa present and oropharynx normal Throat: Yes posterior oropharynx normal Eyes: General: appearance normal, both eyes and all related structures Neck: Other: supple Neck: Yes normal visual inspection Chest: Chest palpation & inspection: normal inspection of the chest Resp: Auscultation: clear to auscultation bilaterally Cardio: Jugular venous distension: no JVD Rate: regular rate Rhythm: regular rhythm Heart sounds: S1 normal heart sound present and S2 normal heart sound present GI: Inspection: Yes normal to inspection Palpation (GI): Soft to palpation, nontender and No hepatosplenomegaly present Auscultation: normal bowel sounds : General: Yes no CVA tenderness Back/Spine/Pelvis: Back: no CVA tenderness Skin: General skin exam: no rashes or lesions noted Neuro: General: oriented to person and patient oriented x3 Cranial nerves: Yes CN's II-XII intact bilaterally Motor exam (neuro): 5/5 motor strength present throughout Sensory Exam: No Sensory deficit (Neuro) Extrem: General: Yes normal to inspection Psych: Appearance: grossly normal Course Reevaluation(s) Reevaluation #1: patient with no evidence of CHF or ischemia will dc home Time: 17:47 MDM - Chest Pain Lab Data Result diagrams: 11/06/21 13:21 11/06/21 13:21 Labs: Lab Results 11/06/21 11/06/21 11/06/21 Range/Units 13:21 13:21 13:21 WBC 6.4 (4.8-10.8) X10*3/uL RBC 3.23 L (4.20-5.50) X10*6/uL Hgb 8.4 L (12.0-16.0) g/dl Hct 27.6 L (37.0-47.0) % MCV 85.4 (80.0-98.0) fL MCH 26.0 L (27.0-33.0) pg MCHC 30.4 L (31.0-35.0) g/dl RDW 17.5 H (11.0-16.0) % Plt Count 316 (160-400) X10*3/uL MPV 9.3 L (9.4-12.3) fL Immature Gran % (Auto) 0.3 (0.0-0.4) % Neut % (Auto) 69.0 (45-73) % Lymph % (Auto) 18.7 L (20-40) % [place] % (Auto) 9.6 (2-11) % Eos % (Auto) 1.9 (0-4) % Baso % (Auto) 0.5 (0-2) % Lymph # (Auto) 1.2 (1.2-4.9) X10*3/uL [place] # (Auto) 0.6 (0.1-1.2) X10*3/uL Eos # (Auto) 0.1 (0.0-0.4) X10*3/uL Baso # (Auto) 0.0 (0.0-0.2) X10*3/uL Abs Immat Gran (auto) 0.02 (0.00-0.03) X10*3/uL Absolute Neuts (auto) 4.4 (2.0-8.3) x10*3/uL Absolute Nucleated RBC 0.000 (0.0-0.012) X10*3/uL Nucleated RBC % (auto) 0.0 (0.0-0.2) /100WBC Sodium 141 (135-145) mmol/L Potassium 4.3 (3.3-5.1) mmol/L Chloride 102 (96-108) mmol/L Carbon Dioxide 27 (22-29) mmol/L Anion Gap 16 (12-20) BUN 21 H (9-16) mg/dL Creatinine 1.24 (0.5-1.4) mg/dL Estim Creat Clear Calc 49.6 Estimated GFR 43 Random Glucose 95 (60-115) mg/dL Calcium 9.8 (8.4-10.2) mg/dL Total Bilirubin 0.3 (0.0-1.0) mg/dL AST 31 (5-31) U/L ALT 17 (0-31) U/L Alkaline Phosphatase 86 (39-117) U/L Troponin I High Sens 6.0 (<3.5-17.0) ng/L B-Natriuretic Peptide 135 H (<100) pg/mL Total Protein 7.0 (6.5-8.0) g/dL Albumin 4.1 (3.5-5.0) g/dL 11/06/21 Range/Units 16:20 WBC (4.8-10.8) X10*3/uL RBC (4.20-5.50) X10*6/uL Hgb (12.0-16.0) g/dl Hct (37.0-47.0) % MCV (80.0-98.0) fL MCH (27.0-33.0) pg MCHC (31.0-35.0) g/dl RDW (11.0-16.0) % Plt Count (160-400) X10*3/uL MPV (9.4-12.3) fL Immature Gran % (Auto) (0.0-0.4) % Neut % (Auto) (45-73) % Lymph % (Auto) (20-40) % [place] % (Auto) (2-11) % Eos % (Auto) (0-4) % Baso % (Auto) (0-2) % Lymph # (Auto) (1.2-4.9) X10*3/uL [place] # (Auto) (0.1-1.2) X10*3/uL Eos # (Auto) (0.0-0.4) X10*3/uL Baso # (Auto) (0.0-0.2) X10*3/uL Abs Immat Gran (auto) (0.00-0.03) X10*3/uL Absolute Neuts (auto) (2.0-8.3) x10*3/uL Absolute Nucleated RBC (0.0-0.012) X10*3/uL Nucleated RBC % (auto) (0.0-0.2) /100WBC Sodium (135-145) mmol/L Potassium (3.3-5.1) mmol/L Chloride (96-108) mmol/L Carbon Dioxide (22-29) mmol/L Anion Gap (12-20) BUN (9-16) mg/dL Creatinine (0.5-1.4) mg/dL Estim Creat Clear Calc Estimated GFR Random Glucose (60-115) mg/dL Calcium (8.4-10.2) mg/dL Total Bilirubin (0.0-1.0) mg/dL AST (5-31) U/L ALT (0-31) U/L Alkaline Phosphatase (39-117) U/L Troponin I High Sens 5.0 (<3.5-17.0) ng/L B-Natriuretic Peptide (<100) pg/mL Total Protein (6.5-8.0) g/dL Albumin (3.5-5.0) g/dL Imaging Data Chest x-ray: Radiologist's impression: Clear lungs, esophageal hernia Discharge Plan Discharge Clinical Impression: Atypical chest pain Patient Disposition: Home, Self-Care Instructions: Noncardiac Chest Pain (ED) Prescriptions: No Action Flovent HFA 110 mcg/actuation HFA aerosol inhaler 2 inh inhalation BID Qty: 12 1RF albuterol 90 mcg/actuation Aerosol 90 mcg INHALATION Q4-6H PRN (Reason: Dyspnea) 0RF ergocalciferol (vitamin D2) 1,250 mcg (50,000 unit) capsule 1 cap PO SA 0RF fluticasone propionate 50 mcg/actuation [place],Suspension 2 spray INTRANASAL DAILY 0RF magnesium oxide 400 mg (241.3 mg magnesium) Tablet 800 mg PO DAILY 30 Days Qty: 60 0RF lorazepam [Ativan] 0.5 mg tablet 0.5 mg PO BEDTIME PRN (Reason: anxiety) Qty: 14 0RF fluticasone propion-salmeterol [Wixela Inhub] 250-50 mcg/dose blister with device 1 inh inhalation BID Qty: 60 1RF epinephrine 0.3 mg/0.3 mL auto-injector 0.3 mg IM Q20M PRN (Reason: anaphylaxis) Qty: 2 0RF Rx Instructions: for 2 doses pantoprazole 40 mg tablet,delayed release (DR/EC) 40 mg PO DAILY 0RF atorvastatin 40 mg tablet 40 mg PO DAILY 0RF carvedilol 12.5 mg tablet 12.5 mg PO BID 0RF Rx Instructions: must administer with a meal/food cyclobenzaprine 10 mg tablet 10 mg PO BEDTIME Qty: 14 0RF Referrals: Ana Lilia Espinoza NP [Primary Care Provider] - 3 days
== END 2021-11-06 17:56 | disposition home or self-care (01) ==
PROVIDERS: Emergency Provider Emergency Medicine; PCP Nurse Practitioner Family
DX: R07.89 Other chest pain (principal); R06.02 Shortness of breath; I13.0 Hypertensive heart and chronic kidney disease with heart failure and stage 1 through stage 4 chronic kidney disease, or unspecified chronic kidney disease; N18.30 Chronic kidney disease, stage 3 unspecified; I50.30 Unspecified diastolic (congestive) heart failure; E78.5 Hyperlipidemia, unspecified; Z79.02 Long term (current) use of antithrombotics/antiplatelets
CPT/HCPCS: 36415; 71046; 80053; 83880; 84484; 85025; 93005; 99283

== ENCOUNTER 2021-12-06 15:07 | Outpatient (REF) | payer BC, SELFPAY ==
[2021-12-06 16:21] LABS: Hematocrit 31.3 % (37.0-47.0); Hemoglobin 9.8 g/dl (12.0-16.0); Mean Corpuscular HGB Conc 31.3 g/dl (31.0-35.0); Mean Corpuscular Hemoglobin 28.4 pg (27.0-33.0); Mean Corpuscular Volume 90.7 fL (80.0-98.0); Mean Platelet Volume 9.9 fL (9.4-12.3); Platelet Count 304 X10*3/uL (160-400); Red Blood Count 3.45 X10*6/uL (4.20-5.50); Red Cell Distribution Width 19.4 % (11.0-16.0)
[2021-12-06 16:48] LABS: Anion Gap 16 (12-20); Blood Urea Nitrogen 27 mg/dL (9-16); Calcium 9.6 mg/dL (8.4-10.2); Carbon Dioxide 26 mmol/L (22-29); Chloride 102 mmol/L (96-108); Estimated Glomerular Filt Rate 34; Glucose Random 95 mg/dL (60-115); Potassium 4.5 mmol/L (3.3-5.1); Sodium 139 mmol/L (135-145)
[2021-12-06 16:49] LABS: B Type Natriuretic Peptide 153 pg/mL (<100)
== END 2021-12-06 15:08 | disposition home or self-care (01) ==
LOC: HO.LAB 15:07
PROVIDERS: PCP Nurse Practitioner Family; Visit Provider Internal Medicine Cardiovascular Disease
DX: I50.30 Unspecified diastolic (congestive) heart failure (principal)
CPT/HCPCS: 36415; 80048; 83880; 85027

== ENCOUNTER 2022-05-08 12:32 | Inpatient (IN) | payer BC, SELFPAY ==
--- NOTE | ~2022-05-08 | XR_ITS ---
EXAMINATION: XR CHEST CLINICAL INFORMATION: Shortness of breath, lower extremity edema. COMPARISON: 11/06/2021 chest radiographs. TECHNIQUE: Frontal view of the chest was obtained. FINDINGS: The lungs are clear. The heart and mediastinal structures are unremarkable. Moderate to large hiatal hernia. XR/XR chest 1V IMPRESSION: 1. No acute cardiopulmonary process. 2. Moderate to large hiatal hernia.
[2022-05-08 14:02] VITALS: BP 194/91; PULSE 75; RESP 16; TEMP 36.9; O2SAT 100; BMI 38.0
--- NOTE | 2022-05-08 14:19 | ECG_ITS ---
Test Reason : cp Blood Pressure : / mmHG Vent. Rate : 098 BPM Atrial Rate : 098 BPM P-R Int : 178 ms QRS Dur : 100 ms QT Int : 374 ms P-R-T Axes : 069 -04 002 degrees QTc Int : 477 ms Normal sinus rhythm Minimal voltage criteria for LVH, may be normal variant ( [place] product ) Nonspecific ST abnormality Abnormal ECG When compared with ECG of 06-NOV-2021 12:33, Premature atrial complexes are no longer Present Referred By: Yoli Jimenes Electronically Signed By:NAMRATA SHELTON
[2022-05-08] MEDS: Albuterol Sulfate 2.5 MG, Albuterol/Iprat 2.5/0.5MG 3 ML 3 ML INHALE (14:20)
[2022-05-08 14:21] VITALS: PULSE 91; RESP 20; O2SAT 96
--- NOTE | 2022-05-08 14:27 | ED_ITS ---
HPI - SOB/Dyspnea General Chief Complaint: Dyspnea Stated Complaint: sob, wheezing elevated BPs Time Seen by Provider: 05/08/22 14:14 Source: patient Mode of arrival: ambulatory History of Present Illness HPI Narrative: 72-year-old female with a past medical history of HTN, HLD, CKD, asthma/COPD, CHF, presenting to the ED complaining of increasing SOB at rest and on exertion, wheezing, and bilateral lower extremity swelling worsening over the past couple days. States has not taken her home Lasix x2 days due to pharmacy mistake of not filling it. Denies fever, new/worsening cough, chest pain, abdominal pain, nausea/vomiting, diarrhea, sick contacts Related Data Home Medications Medication Instructions Recorded Confirmed pantoprazole 40 mg tablet,delayed 40 mg PO DAILY 11/17/20 12/06/21 release albuterol 90 mcg/actuation aerosol 90 mcg inhalation Q4-6H PRN Dyspnea 12/01/20 12/06/21 inhaler ergocalciferol (vitamin D2) 1,250 1 cap PO SA 12/01/20 12/06/21 mcg (50,000 unit) capsule atorvastatin 40 mg tablet 40 mg PO DAILY 03/12/21 12/06/21 furosemide 20 mg tablet 20 mg PO BID 12/06/21 12/06/21 Previous Rx's Medication Instructions Recorded magnesium oxide 400 mg (241.3 mg 800 mg PO DAILY 30 days #60 tabs 12/02/20 magnesium) tablet epinephrine 0.3 mg/0.3 mL 0.3 mg (0.3 mL) IM Q20M PRN 02/23/21 injection, auto-injector anaphylaxis #2 ea fluticasone 250 mcg-salmeterol 50 1 inh inhalation BID #60 ea 02/23/21 mcg/dose blistr powdr for inhalation (Wixela Inhub) fluticasone propionate 110 2 inh inhalation BID #12 grams 03/02/21 mcg/actuation HFA aerosol inhaler (Flovent HFA) lorazepam 0.5 mg tablet (Ativan) 0.5 mg PO BEDTIME PRN anxiety #14 04/03/21 tabs cyclobenzaprine 10 mg tablet 10 mg PO BEDTIME #14 tabs 04/28/21 ferrous sulfate 325 mg (65 mg 325 mg PO DAILY #30 tabs 11/06/21 iron) tablet folic acid 1 mg tablet 1 mg PO DAILY #30 tabs 11/06/21 carvedilol 25 mg tablet 37.5 mg PO BID 90 days #270 tabs 12/07/21 losartan 25 mg tablet 25 mg PO DAILY 90 days #90 tabs 01/04/22 cephalexin 500 mg capsule 500 mg PO BID 10 days #20 caps 03/30/22 sulfamethoxazole 800 1 tab PO Q12H 10 days #20 tabs 03/30/22 mg-trimethoprim 160 mg tablet (Bactrim DS) Allergies Allergy/AdvReac Type Severity Reaction Status Date / Time Penicillins Allergy Unknown UNKNOWN Verified 03/30/22 11:54 levofloxacin [From Levaquin] Allergy Unknown Verified 03/30/22 11:54 paroxetine [From Paxil] Allergy Unknown Verified 03/30/22 11:54 prochlorperazine Allergy Unknown Verified 03/30/22 11:54 [From Compazine] shrimp Allergy Anaphylaxis Verified 03/30/22 11:54 compazine Allergy Mild hives Uncoded 03/30/22 11:54 seasonal and environmental Allergy Mild hives Uncoded 03/30/22 11:54 Compazine Allergy Unknown facial Uncoded 03/30/22 11:54 numbness shrimp & lobster Allergy Unknown hives Uncoded 03/30/22 11:54 tripolyphosphate Allergy Unknown hives Uncoded 03/30/22 11:54 Review of Systems Review of Systems: Constitutional: No Fever, No Chills, No Fatigue, No Malaise ENT/Mouth: No Ear Pain, No Nasal Congestion, No Sinus Pain, No Hoarseness, No sore throat, No Rhinorrhea, No Swallowing Difficulty Eyes: No Eye Pain, No Swelling, No Redness, No Vision Changes Cardiovascular: No Chest Pain, + SOB, + Dyspnea on Exertion, + Orthopnea, + Edema Respiratory: +Chronic Cough, No Sputum, + Wheezing, + Dyspnea Gastrointestinal: No Nausea, No Vomiting, No Diarrhea, No Constipation, No Abdominal pain Genitourinary: No Dysuria, No Urinary Frequency, No Hematuria, No Urinary Incontinence/retention, No Hesitancy Musculoskeletal: No joint pain, No Myalgias, No Joint Swelling Skin: No Skin Lesions, No rash Neuro: No Weakness, No Dizziness, No Headache Yes all other systems are reviewed and are negative Constitutional: Constitutional: Reports as per [facility] Past Medical History Attestation statement: The following information was validated with the patient. Medical History (HFpEF) heart failure with preserved ejection fraction Arthritis Asthma Chronic kidney disease (CKD) stage G3a/A1, moderately decreased glomerular filtration rate (GFR) between 45-59 mL/min/1.73 square meter and albuminuria creatinine ratio less than 30 mg/g COPD (chronic obstructive pulmonary disease) Essential hypertension Gout HTN (hypertension) Hypercholesteremia Inguinal hernia Other and unspecified hyperlipidemia Sliding hiatal hernia Family History Family History Father CHF (congestive heart failure) Mother CHF (congestive heart failure) Social History Social History Household Members: Family Household Members Other:: mother Housing: House Do you presently have visiting nurse or other home services: No Patient Tobacco Use Status: Former Tobacco user Second Hand Smoke Exposure: No Advance Directives: Yes Advance Directives on File: Yes Advance Directives Date on File: 12/04/20 service: No Physical Exam Vital Signs: Vital Signs: Last Vital Signs Temp 98.4 F 05/08/22 14:02 Pulse 100 05/08/22 15:34 Resp 18 05/08/22 15:34 BP 193/94 H 05/08/22 15:34 Pulse Ox 100 05/08/22 15:34 O2 Del Method 05/08/22 15:34 BMI result Body Mass Index 38.0 Const: General: cooperative and healthy appearing Orientation/consciousness: patient oriented x3 Limitations: no limitations HEENT: Head: Yes normal to inspection and Yes atraumatic Ears: hearing grossly normal bilaterally General nose exam: Normal external nose present Face and sinus: Yes normal facial exam Eyes: General: appearance normal, both eyes and all related structures EOM: EOMs intact bilaterally Neck: Neck: Yes normal visual inspection and Yes no meningeal signs Resp: Other: Talking in short sentences Effort & Inspection: audible wheezes and respiratory distress (Mild) Auscultation: wheezes expiratory wheezes and throughout Cardio: Rate: regular rate Heart sounds: S1 normal heart sound present and S2 normal heart sound present GI: Inspection: Yes normal to inspection Palpation (GI): Soft to palpation, nontender, no guarding and not rigid : General: Yes no CVA tenderness Back/Spine/Pelvis: Back: no CVA tenderness Skin: Rashes: no rashes Wounds: no wounds Neuro: General: patient oriented x3, tone normal and no meningeal signs Gait exam (Neuro): Normal gait present Extrem: Other: 3+ bilateral LE pitting edema Course Course Course Narrative: -1540--no leukocytosis. H&H stable. Lactic acid elevated to 2.7 > likely from albuterol use and not severe sepsis will give gentle IVF. Low suspicion for severe sepsis. Will avoid IVF due to risk of fluid overload -on re-evaluation after initial DuoNeb patient still with diffuse expiratory wheeze. Very shaky at this time, will give additional DuoNeb and 15-20 minutes -magnesium low at 1.4 > 2g IV repletion ordered. Troponin WNL. BNP 112 XR chest 1V IMPRESSION:? 1. No acute cardiopulmonary process. 2. Moderate to large hiatal hernia. -1700--patient with better air movement after 2nd DuoNeb, still tight. Became very short of breath/ tachypneic, talking in short sentences after minimal exertion walking to the bathroom >> Plan to admit for further management MDM - SOB/Dyspnea MDM Narrative Medical decision making narrative: 72-year-old female with a past medical history of HTN, HLD, CKD, asthma/COPD, CHF, presenting to the ED complaining of increasing SOB at rest and on exertion, wheezing, and bilateral lower extremity swelling worsening over the past couple days. On exam in mild respiratory distress, talking in short sentences with audible wheeze, expiratory wheeze noted throughout, bilateral LE pitting edema. Concern for asthma/COPD exacerbation vs CHF exacerbation. Rule out pneumonia/viral illness. Lower suspicion for PE or ACS. Unlikely DVT Plan: EKG, labs, CXR, COVID-19 testing, DuoNeb, IV Solu-Medrol, IV Lasix, anticipated admission Medical Records Attestation: I reviewed the patient's medical records. Lab Data Attestation: I reviewed the patient's lab results. Result diagrams: 05/08/22 15:14 05/08/22 15:14 Labs: Lab Results 05/08/22 05/08/22 05/08/22 Range/Units 15:14 15:14 15:14 WBC 6.8 (4.8-10.8) X10*3/uL RBC 3.36 L (4.20-5.50) X10*6/uL Hgb 11.7 L (12.0-16.0) g/dl Hct 34.8 L (37.0-47.0) % MCV 103.6 H (80.0-98.0) fL MCH 34.8 H (27.0-33.0) pg MCHC 33.6 (31.0-35.0) g/dl RDW 13.4 (11.0-16.0) % Plt Count 259 (160-400) X10*3/uL MPV 9.7 (9.4-12.3) fL Immature Gran % (Auto) 0.4 (0.0-0.4) % Neut % (Auto) 56.0 (45-73) % Lymph % (Auto) 33.2 (20-40) % [place] % (Auto) 8.1 (2-11) % Eos % (Auto) 2.0 (0-4) % Baso % (Auto) 0.3 (0-2) % Lymph # (Auto) 2.3 (1.2-4.9) X10*3/uL [place] # (Auto) 0.6 (0.1-1.2) X10*3/uL Eos # (Auto) 0.1 (0.0-0.4) X10*3/uL Baso # (Auto) 0.0 (0.0-0.2) X10*3/uL Abs Immat Gran (auto) 0.03 (0.00-0.03) X10*3/uL Absolute Neuts (auto) 3.8 (2.0-8.3) x10*3/uL Absolute Nucleated RBC 0.000 (0.0-0.012) X10*3/uL Nucleated RBC % (auto) 0.0 (0.0-0.2) /100WBC Sodium 145 (135-145) mmol/L Potassium 3.3 D (3.3-5.1) mmol/L Chloride 106 (96-108) mmol/L Carbon Dioxide 25 (22-29) mmol/L Anion Gap 17 (12-20) BUN 13 D (9-16) mg/dL Creatinine 0.81 (0.5-1.4) mg/dL Estim Creat Clear Calc 74.5 Estimated GFR > 60 Random Glucose 82 (60-115) mg/dL Lactic Acid 2.7 H* (0.5-2.0) mmol/L Calcium 9.2 (8.4-10.2) mg/dL Magnesium 1.4 L* (1.6-2.6) mg/dL Total Bilirubin < 0.2 (0.0-1.0) mg/dL Direct Bilirubin < 0.2 (0.0-0.5) mg/dL AST 25 (5-31) U/L ALT 14 (0-31) U/L Alkaline Phosphatase 89 (39-117) U/L Troponin I High Sens (<3.5-17.0) ng/L B-Natriuretic Peptide (<100) pg/mL Total Protein 6.7 (6.5-8.0) g/dL Albumin 4.0 (3.5-5.0) g/dL COVID-19 ([facility]) (Negative) COVID-19 Clin Com 05/08/22 05/08/22 Range/Units 15:14 15:15 WBC (4.8-10.8) X10*3/uL RBC (4.20-5.50) X10*6/uL Hgb (12.0-16.0) g/dl Hct (37.0-47.0) % MCV (80.0-98.0) fL MCH (27.0-33.0) pg MCHC (31.0-35.0) g/dl RDW (11.0-16.0) % Plt Count (160-400) X10*3/uL MPV (9.4-12.3) fL Immature Gran % (Auto) (0.0-0.4) % Neut % (Auto) (45-73) % Lymph % (Auto) (20-40) % [place] % (Auto) (2-11) % Eos % (Auto) (0-4) % Baso % (Auto) (0-2) % Lymph # (Auto) (1.2-4.9) X10*3/uL [place] # (Auto) (0.1-1.2) X10*3/uL Eos # (Auto) (0.0-0.4) X10*3/uL Baso # (Auto) (0.0-0.2) X10*3/uL Abs Immat Gran (auto) (0.00-0.03) X10*3/uL Absolute Neuts (auto) (2.0-8.3) x10*3/uL Absolute Nucleated RBC (0.0-0.012) X10*3/uL Nucleated RBC % (auto) (0.0-0.2) /100WBC Sodium (135-145) mmol/L Potassium (3.3-5.1) mmol/L Chloride (96-108) mmol/L Carbon Dioxide (22-29) mmol/L Anion Gap (12-20) BUN (9-16) mg/dL Creatinine (0.5-1.4) mg/dL Estim Creat Clear Calc Estimated GFR Random Glucose (60-115) mg/dL Lactic Acid (0.5-2.0) mmol/L Calcium (8.4-10.2) mg/dL Magnesium (1.6-2.6) mg/dL Total Bilirubin (0.0-1.0) mg/dL Direct Bilirubin (0.0-0.5) mg/dL AST (5-31) U/L ALT (0-31) U/L Alkaline Phosphatase (39-117) U/L Troponin I High Sens 3.6 (<3.5-17.0) ng/L B-Natriuretic Peptide 112 H (<100) pg/mL Total Protein (6.5-8.0) g/dL Albumin (3.5-5.0) g/dL COVID-19 ([facility]) Negative (Negative) COVID-19 Clin Com See Note Critical Care Time Critical Care Time Critical Care Time: Yes Total Critical Care Time: 40 Attestation: I have personally provided critical care time exclusive of time spent on separately billable procedures. Time includes review of lab data, radiology results, discussion with consultants, and monitoring for potential decompensation. Intervention performed as documented. Discharge Plan Discharge Clinical Impression: COPD (chronic obstructive pulmonary disease), CHF (congestive heart failure) Patient Disposition: Admitted As Inpatient Prescriptions: No Action Flovent HFA 110 mcg/actuation HFA aerosol inhaler 2 inh inhalation BID Qty: 12 1RF carvedilol 25 mg tablet 37.5 mg PO BID 90 Days Qty: 270 1RF losartan 25 mg tablet 25 mg PO DAILY 90 Days Qty: 90 3RF albuterol 90 mcg/actuation Aerosol 90 mcg INHALATION Q4-6H PRN (Reason: Dyspnea) ergocalciferol (vitamin D2) 1,250 mcg (50,000 unit) capsule 1 cap PO SA magnesium oxide 400 mg (241.3 mg magnesium) Tablet 800 mg PO DAILY 30 Days Qty: 60 0RF lorazepam [Ativan] 0.5 mg tablet 0.5 mg PO BEDTIME PRN (Reason: anxiety) Qty: 14 0RF folic acid 1 mg tablet 1 mg PO DAILY Qty: 30 0RF ferrous sulfate 325 mg (65 mg iron) tablet 325 mg PO DAILY Qty: 30 0RF fluticasone propion-salmeterol [Wixela Inhub] 250-50 mcg/dose blister with device 1 inh inhalation BID Qty: 60 1RF epinephrine 0.3 mg/0.3 mL auto-injector 0.3 mg IM Q20M PRN (Reason: anaphylaxis) Qty: 2 0RF Rx Instructions: for 2 doses pantoprazole 40 mg tablet,delayed release (DR/EC) 40 mg PO DAILY atorvastatin 40 mg tablet 40 mg PO DAILY cyclobenzaprine 10 mg tablet 10 mg PO BEDTIME Qty: 14 0RF sulfamethoxazole-trimethoprim [Bactrim DS] 800-160 mg tablet 1 tab PO Q12H 10 Days Qty: 20 0RF cephalexin 500 mg capsule 500 mg PO BID 10 Days Qty: 20 0RF furosemide 20 mg tablet 20 mg PO BID
[2022-05-08 15:22] LABS: MANUAL DIFF FLAG NO
[2022-05-08 15:28] LABS: Basophils Percent Auto 0.3 % (0-2); Eosinophils Absolute Auto 0.1 X10*3/uL (0.0-0.4); Hematocrit 34.8 % (37.0-47.0); Hemoglobin 11.7 g/dl (12.0-16.0); Imm Gran Abs Auto 0.03 X10*3/uL (0.00-0.03); Imm Gran Pct Auto 0.4 % (0.0-0.4); Lymphocytes Absolute Auto 2.3 X10*3/uL (1.2-4.9); Lymphocytes Percent Auto 33.2 % (20-40); Mean Corpuscular HGB Conc 33.6 g/dl (31.0-35.0); Mean Corpuscular Hemoglobin 34.8 pg (27.0-33.0); Mean Corpuscular Volume 103.6 fL (80.0-98.0); Mean Platelet Volume 9.7 fL (9.4-12.3); Monocytes Absolute Auto 0.6 X10*3/uL (0.1-1.2); Monocytes Percent Auto 8.1 % (2-11); Neutrophils Absolute Auto 3.8 x10*3/uL (2.0-8.3); Platelet Count 259 X10*3/uL (160-400); Red Blood Count 3.36 X10*6/uL (4.20-5.50); Red Cell Distribution Width 13.4 % (11.0-16.0); White Blood Count 6.8 X10*3/uL (4.8-10.8)
[2022-05-08 15:34] VITALS: BP 193/94; PULSE 100; RESP 18; O2SAT 100
[2022-05-08 15:41] LABS: Lactic Acid 2.7 mmol/L (0.5-2.0)
[2022-05-08] MEDS: Furosemide 40 MG/4 ML VIAL IVPUSH (15:41)
[2022-05-08 15:42] LABS: Alanine Aminotransferase 14 U/L (0-31); Alkaline Phosphatase 89 U/L (39-117); Anion Gap 17 (12-20); Aspartate Amino Transferase 25 U/L (5-31); Bilirubin Direct < 0.2 mg/dL (0.0-0.5); Bilirubin Total < 0.2 mg/dL (0.0-1.0); Blood Urea Nitrogen 13 mg/dL (9-16); Calcium 9.2 mg/dL (8.4-10.2); Carbon Dioxide 25 mmol/L (22-29); Chloride 106 mmol/L (96-108); Creatinine Clr Calc Pharmacy 74.5; Estimated Glomerular Filt Rate > 60; Glucose Random 82 mg/dL (60-115); Magnesium 1.4 mg/dL (1.6-2.6); Potassium 3.3 mmol/L (3.3-5.1); Sodium 145 mmol/L (135-145); Total Protein 6.7 g/dL (6.5-8.0)
[2022-05-08 15:42] LABS: COVID-19 Test Negative (Negative)
[2022-05-08] MEDS: methylPREDNISolone Sod Succ 125 MG/2 ML VIAL IVPUSH (15:42)
[2022-05-08 15:43] LABS: IDNOW Serial# 16C4AD1C
[2022-05-08 15:46] LABS: B Type Natriuretic Peptide 112 pg/mL (<100); Troponin-I High Sensitivity 3.6 ng/L (<3.5-17.0)
[2022-05-08] MEDS: Albuterol/Iprat 2.5/0.5MG 3 ML AMPUL.NEB INHALE (15:50)
[2022-05-08 17:21] LABS: Reflex Lactate? Lactic Acid Added
[2022-05-08] MEDS: Magnesium Sulfate/H2O 2 GM/50 ML PIGGYBACK IV (17:35)
[2022-05-08] MEDS: 0.9 % Sodium Chloride 1,000 ML 75 ML IVCONT (17:35)
[2022-05-08 17:49] LABS: Lactic Acid 3.6 mmol/L (0.5-2.0)
[2022-05-08 18:16] LABS: Iron 109 mcg/dL (30-160); Percent Iron Saturation 36 % (15-50); Total Iron Binding Capacity 307 mcg/dL (228-428); Unsaturated Iron Binding 198 ug/dL
[2022-05-08 18:36] LABS: Thyroid Stimulating Hormone 2.49 uIU/mL (0.32-4.0)
--- NOTE | 2022-05-08 18:37 | PM.IMHP ---
History of Present Illness Date of Service: 05/08/22 Chief Complaint: sob 72F with pmh of asthma/copd, htn, obesity, chronic diastolic chf, CKD III, hepatic steatosis, gerd, hld, presented with 3-4 days increasing sob, lower extremity edema. reports missing several days of lasix due to pharmacy mix up. sob worse on exertion, denies wheezing, fever, chest pain. in ED noted to be hypertenive, systolics in 190s, cxr unremarkable. Review of Systems Review of Systems: Constitutional: Denies fever, denies Chills Eyes: denies blurry vision ENT: denies sore throat CVS: denies chest pain Respiratory: dyspnea GI: no abdominal pain : denies dysuria MSK: denies neck pain Skin: denies rash Neuro: denies specific motor weakness Psych: denies suicidal ideation Endocrine: denies heat/cold intolerance Hematologic: denies easy bleeding Allergy: denies hives [facility] Medical History (HFpEF) heart failure with preserved ejection fraction Arthritis Asthma Chronic kidney disease (CKD) stage G3a/A1, moderately decreased glomerular filtration rate (GFR) between 45-59 mL/min/1.73 square meter and albuminuria creatinine ratio less than 30 mg/g COPD (chronic obstructive pulmonary disease) Essential hypertension Gout Hepatic steatosis HTN (hypertension) Hypercholesteremia Inguinal hernia Other and unspecified hyperlipidemia Sliding hiatal hernia Family History Father CHF (congestive heart failure) Mother CHF (congestive heart failure) Social History Household Members: Family Household Members Other:: mother Housing: House Do you presently have visiting nurse or other home services: No Alcohol intake: current Alcohol intake frequency: 0-2 drinks per day Alcohol type: wine Patient Tobacco Use Status: Former Tobacco user Second Hand Smoke Exposure: No Advance Directives: Yes Advance Directives on File: Yes Advance Directives Date on File: 12/04/20 service: No Meds Allergies Allergy/AdvReac Type Severity Reaction Status Date / Time Penicillins Allergy Unknown UNKNOWN Verified 03/30/22 11:54 levofloxacin [From Levaquin] Allergy Unknown Verified 03/30/22 11:54 paroxetine [From Paxil] Allergy Unknown Verified 03/30/22 11:54 prochlorperazine Allergy Unknown Verified 03/30/22 11:54 [From Compazine] shrimp Allergy Anaphylaxis Verified 03/30/22 11:54 Active Medications: Current Medications Albuterol/Ipratropium (Albuterol/Iprat 2.5/0.5mg 3 Ml Ampul.Neb) 3 ml INHALE RQ4H PRN PRN Reason: sob Atorvastatin Calcium (Atorvastatin Calcium 40 Mg Tablet) 40 mg PO BEDTIME JOSÉ Carvedilol (Carvedilol 12.5 Mg Tablet) 37.5 mg PO BID [facility]; Protocol Furosemide (Furosemide 40 Mg/4 Ml Vial) 40 mg IVPUSH BID@0900,1800 [facility]; Protocol Omeprazole (Omeprazole 40 Mg Capsule.Dr) 40 mg PO DAILY@0630 [facility] Pharmacy Consult (Consult Rx Perform Med Rec) 1 each MISCELLANE ONCE PRN PRN Reason: Consult order Home Medications Medication Instructions Recorded Confirmed Last Taken Type pantoprazole 40 mg tablet,delayed 40 mg PO DAILY 11/17/20 12/06/21 Unknown History release albuterol 90 mcg/actuation aerosol 90 mcg inhalation Q4-6H PRN Dyspnea 12/01/20 12/06/21 Unknown History inhaler ergocalciferol (vitamin D2) 1,250 1 cap PO SA 12/01/20 12/06/21 11/25/20 History mcg (50,000 unit) capsule atorvastatin 40 mg tablet 40 mg PO DAILY 03/12/21 05/08/22 Unknown History furosemide 20 mg tablet 20 mg PO BID 12/06/21 12/06/21 Unknown History Physical Exam Vital Signs and Narrative: Vital Signs: Last Vital Signs Temp 98.4 F 05/08/22 14:02 Pulse 100 05/08/22 15:34 Resp 18 05/08/22 15:34 BP 193/94 H 05/08/22 15:34 Pulse Ox 100 05/08/22 15:34 O2 Del Method 05/08/22 15:34 BMI result Body Mass Index 38.0 General: sob HEENT: atraumatic Neck: normal to visual inspection CVS: S1, S2, RRR Resp: mild basilar crackles bilateral, no wheeze Chest: non tender GI: soft, non tender, non distended : no CVA tenderness Skin: no rashes Extremities: 3+ bilateral lower extremity edema Neuro: Oriented X3, grossly intact Psych: cooperative Results Labs CBC and Chem 7: 05/08/22 15:14 05/08/22 15:14 Labs: Laboratory Results - last 24 hr 05/08/22 05/08/22 05/08/22 15:14 15:14 15:14 MCV 103.6 H MCH 34.8 H MCHC 33.6 RDW 13.4 Plt Count 259 MPV 9.7 Immature Gran % (Auto) 0.4 Neut % (Auto) 56.0 Lymph % (Auto) 33.2 [place] % (Auto) 8.1 Eos % (Auto) 2.0 Baso % (Auto) 0.3 Lymph # (Auto) 2.3 [place] # (Auto) 0.6 Eos # (Auto) 0.1 Baso # (Auto) 0.0 Abs Immat Gran (auto) 0.03 Absolute Neuts (auto) 3.8 Absolute Nucleated RBC 0.000 Nucleated RBC % (auto) 0.0 Anion Gap 17 Estim Creat Clear Calc 74.5 Estimated GFR > 60 Random Glucose 82 Lactic Acid 2.7 H* Calcium 9.2 Magnesium 1.4 L* Iron 109 TIBC 307 % Saturation 36 Unsat Iron Binding 198 Total Bilirubin < 0.2 Direct Bilirubin < 0.2 AST 25 ALT 14 Alkaline Phosphatase 89 B-Natriuretic Peptide Total Protein 6.7 Albumin 4.0 TSH 2.49 COVID-19 ([facility]) COVID-[employer] 05/08/22 05/08/22 05/08/22 15:14 15:15 17:24 MCV MCH MCHC RDW Plt Count MPV Immature Gran % (Auto) Neut % (Auto) Lymph % (Auto) [place] % (Auto) Eos % (Auto) Baso % (Auto) Lymph # (Auto) [place] # (Auto) Eos # (Auto) Baso # (Auto) Abs Immat Gran (auto) Absolute Neuts (auto) Absolute Nucleated RBC Nucleated RBC % (auto) Anion Gap Estim Creat Clear Calc Estimated GFR Random Glucose Lactic Acid 3.6 H* Calcium Magnesium Iron TIBC % Saturation Unsat Iron Binding Total Bilirubin Direct Bilirubin AST ALT Alkaline Phosphatase B-Natriuretic Peptide 112 H Total Protein Albumin TSH COVID-19 ([facility]) Negative COVID-19 Clin Com See Note Imaging Radiologist's Impressions: Impressions Chest X-Ray 05/08/22 14:35 IMPRESSION: 1. No acute cardiopulmonary process. 2. Moderate to large hiatal hernia. Assessment and Plan (1) Hepatic steatosis: Status: Acute Plan 72F with pmh of asthma/copd, htn, obesity, chronic diastolic chf, CKD III, hepatic steatosis, gerd, hld presented with sob dyspnea due to acute on chronic diastolic CHF IV Lasix, monitor electrolytes COPD/moderate persistent asthma Does not appear to be in acute exacerbation Duo nebs as needed Macrocytic anemia Check B12, folate, TSH ? Due to alcohol Hepatic steatosis Likely component of alcohol and nonalcoholic fatty liver Hypertension, uncontrolled Diuresis, continue carvedilol, monitor Obesity Weight loss Hyperlipidemia Statin CKD 3 Creatinine lower than baseline, currently 0.81 Lactic acidosis Due to albuterol, not sepsis Hypomagnesemia Possibly due to alcohol magnesuria Replace and monitor GERD PPI DVT prophylaxis Lovenox full code Patient is being admitted for acute on chronic diastolic CHF, requiring IV diuresis, due to extent of edema and shortness of breath expected to require at least 2 midnights in the hospital to fully diurese, patient is also high risk for further decompensation due to obesity, hypertension is uncontrolled, COPD Quality Stroke Does the patient have a stroke diagnosis?: No VTE Prior VTE?: No VTE Risk Level:: Medical - moderate - high VTE Device Contraindication: Treatment Not Indicated VTE Drug Contraindication: N/A - Med Ordered
[2022-05-08 18:57] LABS: Folate 19.3 ng/mL (> or = 4.0); Vitamin B12 182 pg/mL (200-900)
[2022-05-08 19:28] LABS: Reflex Lactate? Lactic Acid Added
[2022-05-08 19:41] LABS: ~Lactic Acid-LAB USE ONLY 2.7 mmol/L (0.5-2.0)
[2022-05-08 21:24] LABS: Reflex Lactate? 2 Y
[2022-05-08] MEDS: Enoxaparin Sodium 40 MG/0.4 ML SYRINGE SUBCUT (21:47)
[2022-05-08] MEDS: Atorvastatin Calcium 40 MG TABLET PO (21:48)
[2022-05-08] MEDS: carvediloL 12.5 MG TABLET 37.5 MG PO (21:48)
[2022-05-08 22:21] LABS: ~Lactic Acid-LAB USE ONLY 2.6 mmol/L (0.5-2.0)
[2022-05-09] VITALS (12 sets, daily range): BP systolic 127–203; BP diastolic 42–95; PULSE 63–78; RESP 14–20; TEMP 37–37.2; O2SAT 97–100; BMI 37.5
[2022-05-09] MEDS: Omeprazole 40 MG CAPSULE.DR PO (06:25)
[2022-05-09 06:56] LABS: Hematocrit 35.2 % (37.0-47.0); Mean Corpuscular HGB Conc 34.1 g/dl (31.0-35.0); Mean Corpuscular Hemoglobin 34.5 pg (27.0-33.0); Mean Corpuscular Volume 101.1 fL (80.0-98.0); Mean Platelet Volume 9.9 fL (9.4-12.3); Platelet Count 253 X10*3/uL (160-400); Red Blood Count 3.48 X10*6/uL (4.20-5.50); Red Cell Distribution Width 13.2 % (11.0-16.0); White Blood Count 4.5 X10*3/uL (4.8-10.8)
[2022-05-09 07:07] LABS: Anion Gap 15 (12-20); Blood Urea Nitrogen 16 mg/dL (9-16); Carbon Dioxide 28 mmol/L (22-29); Chloride 103 mmol/L (96-108); Creatinine Clr Calc Pharmacy 72.8; Estimated Glomerular Filt Rate > 60; Glucose Fasting 201 mg/dL (60-99); Magnesium 1.8 mg/dL (1.6-2.6); Potassium 4.4 mmol/L (3.3-5.1); Sodium 142 mmol/L (135-145)
--- NOTE | 2022-05-09 08:38 | PHA.MEDREC ---
Pharmacy Consult ? Medication Reconciliation Pharmacy has REVIEWED the medication reconciliation done by Kimberly. Needed more clarification, spoke to patient myself. Patient is no longer on cyclobenzaprine, flovent or losartan. Patient takes daily D3 instead of weekly D2.
[2022-05-09] MEDS: cloNIDine HCL 0.1 MG TABLET PO ×2 (09:11→20:42)
[2022-05-09] MEDS: carvediloL 12.5 MG TABLET 37.5 MG PO ×2 (09:12→20:42)
[2022-05-09] MEDS: Folic Acid 1 MG TABLET PO (09:12)
[2022-05-09] MEDS: Ferrous Sulfate 324 MG TABLET.DR PO (09:13)
[2022-05-09] MEDS: Furosemide 40 MG/4 ML VIAL IVPUSH ×2 (09:13→17:46)
[2022-05-09] MEDS: Cyanocobalamin (Vitamin B-12) 1,000 MCG TABLET 1000 MCG PO (09:14)
--- NOTE | 2022-05-09 09:22 | PC.NURSE ---
pt alert and oriented, skin pwd, respirations even and unlabored, ls clear, pt denies chest pain just states a little heaviness in chest and feels sob even when resting but much better then yesterday per pt. some bilateral lower extremities peding edema about +2, ns on the monitor.
[2022-05-09] MEDS: Cyanocobalamin (Vitamin B-12) 1,000 MCG/ML VIAL 1000 MCG IM (11:39)
--- NOTE | 2022-05-09 11:48 | MHC.CM.PN ---
Addendum entered by Nkechi Romero 05/09/22 11:51: CORRECTION: PT WILL DRIVE HERSELF HOME Original Note: PT REPORTS SHE LIVES WITH HER 91 YEAR OLD MOTHER AND THEY ARE BOTH COMPLETELY INDEPENDENT WITH CARE SHE DENIES USING ANY HOME OR COMMUNITY SERVICES AND REPORTS SHE WORKS WITH [employer] IN [place] SHE REPORTS SHE USES A CANE AND NO OTHER DME PT REPORTS SHE IS COVID VACCINATED AND HAS RECEIVED TWO BOOSTERS, ALL PFIZER PT HAS A HCP ON FILE PCP: LEONEL YOUNG PT DENIES HAVING MEDICARE CURRENT DC PLAN IS HOME WITH NO SERVICES PT WILL SELF ARRANGE TRANSPORT
--- NOTE | 2022-05-09 11:56 | P.PNIM_ITS ---
Subjective Subjective Date of Service: 05/09/22 Interval History: cc: sob interval history:some improvement, still sob, edema Physical Exam Vital Signs: Vital Signs: Last Vital Signs Temp 98.4 F 05/08/22 14:02 Pulse 68 05/09/22 11:40 Resp 20 05/09/22 11:40 BP 168/83 H 05/09/22 11:40 Pulse Ox 97 05/09/22 11:10 O2 Del Method 05/09/22 11:10 BMI result Body Mass Index 38.0 General: AO X 3, no acute distress Resp: CTA bilateral, no accessory muscles used CVS: S1,S2,RRR, 2+ edema GI: soft, non tender, non distended Neuro: motor grossly intact, alert Psych: appropriate affect, appropriate insight Objective Data Active Medications Albuterol/Ipratropium (Albuterol/Iprat 2.5/0.5mg 3 Ml Ampul.Neb) 3 ml INHALE Q4H PRN PRN Reason: sob Atorvastatin Calcium (Atorvastatin Calcium 40 Mg Tablet) 40 mg PO BEDTIME [facility] Last Admin: 05/08/22 21:48 Dose: 40 mg Documented By: GEORGE Carvedilol (Carvedilol 12.5 Mg Tablet) 37.5 mg PO BID [facility]; Protocol Last Admin: 05/09/22 09:12 Dose: 37.5 mg Documented By: SOHAM Clonidine HCl (Clonidine Hcl 0.1 Mg Tablet) 0.1 mg PO BID [facility]; Protocol Last Admin: 05/09/22 09:11 Dose: 0.1 mg Documented By: SOHAM Cyanocobalamin (Cyanocobalamin (Vitamin B-12) 1,000 Mcg Tablet) 1,000 mcg PO DAILY [facility] Last Admin: 05/09/22 09:14 Dose: 1,000 mcg Documented By: SOHAM Enoxaparin Sodium (Enoxaparin Sodium 40 Mg/0.4 Ml Syringe) 40 mg SUBCUT Q24H [facility] Last Admin: 05/08/22 21:47 Dose: 40 mg Documented By: GEORGE Ferrous Sulfate (Ferrous Sulfate 324 Mg Tablet.) 324 mg PO DAILY [facility] Last Admin: 05/09/22 09:13 Dose: 324 mg Documented By: SOHAM Folic Acid (Folic Acid 1 Mg Tablet) 1 mg PO DAILY [facility] Last Admin: 05/09/22 09:12 Dose: 1 mg Documented By: SOHAM Furosemide (Furosemide 40 Mg/4 Ml Vial) 40 mg IVPUSH BID@0900,1800 [facility]; Protocol Last Admin: 05/09/22 09:13 Dose: 40 mg Documented By: SOHAM Lorazepam (Lorazepam 0.5 Mg Tablet) 0.5 mg PO BEDTIME PRN PRN Reason: anxiety Magnesium Oxide (Magnesium Oxide 400 Mg Tablet) [facility] Omeprazole (Omeprazole 40 Mg Capsule.Dr) 40 mg PO DAILY@0630 [facility] Last Admin: 05/09/22 06:25 Dose: 40 mg Documented By: JOSE M Pharmacy Consult (Consult Rx Perform Med Rec) 1 each MISCELLANE ONCE PRN PRN Reason: Consult order Labs CBC & Chem 7: 05/09/22 05:59 05/09/22 05:59 Labs: Laboratory Results - last 24 hr 05/08/22 05/08/22 05/08/22 15:14 15:14 15:14 MCV 103.6 H MCH 34.8 H MCHC 33.6 RDW 13.4 Plt Count 259 MPV 9.7 Immature Gran % (Auto) 0.4 Neut % (Auto) 56.0 Lymph % (Auto) 33.2 [place] % (Auto) 8.1 Eos % (Auto) 2.0 Baso % (Auto) 0.3 Lymph # (Auto) 2.3 [place] # (Auto) 0.6 Eos # (Auto) 0.1 Baso # (Auto) 0.0 Abs Immat Gran (auto) 0.03 Absolute Neuts (auto) 3.8 Absolute Nucleated RBC 0.000 Nucleated RBC % (auto) 0.0 Anion Gap 17 Estim Creat Clear Calc 74.5 Estimated GFR > 60 Random Glucose 82 Fasting Glucose Lactic Acid 2.7 H* Lactic Acid F/U @ 2Hr Lactic Acid F/U @ 4Hr Calcium 9.2 Magnesium 1.4 L* Iron 109 TIBC 307 % Saturation 36 Unsat Iron Binding 198 Total Bilirubin < 0.2 Direct Bilirubin < 0.2 AST 25 ALT 14 Alkaline Phosphatase 89 B-Natriuretic Peptide Total Protein 6.7 Albumin 4.0 Vitamin B12 Folate TSH 2.49 COVID-19 ([facility]) COVID-19 Clin Com 0905/08/22 05/08/22 15:14 15:14 15:15 MCV MCH MCHC RDW Plt Count MPV Immature Gran % (Auto) Neut % (Auto) Lymph % (Auto) [place] % (Auto) Eos % (Auto) Baso % (Auto) Lymph # (Auto) [place] # (Auto) Eos # (Auto) Baso # (Auto) Abs Immat Gran (auto) Absolute Neuts (auto) Absolute Nucleated RBC Nucleated RBC % (auto) Anion Gap Estim Creat Clear Calc Estimated GFR Random Glucose Fasting Glucose Lactic Acid Lactic Acid F/U @ 2Hr Lactic Acid F/U @ 4Hr Calcium Magnesium Iron TIBC % Saturation Unsat Iron Binding Total Bilirubin Direct Bilirubin AST ALT Alkaline Phosphatase B-Natriuretic Peptide 112 H Total Protein Albumin Vitamin B12 182 L Folate 19.3 TSH COVID-19 ([facility]) Negative COVID-[facility] See Note 05/08/22 05/08/22 05/08/22 17:24 19:19 19:20 MCV MCH MCHC RDW Plt Count MPV Immature Gran % (Auto) Neut % (Auto) Lymph % (Auto) [place] % (Auto) Eos % (Auto) Baso % (Auto) Lymph # (Auto) [place] # (Auto) Eos # (Auto) Baso # (Auto) Abs Immat Gran (auto) Absolute Neuts (auto) Absolute Nucleated RBC Nucleated RBC % (auto) Anion Gap Estim Creat Clear Calc Estimated GFR Random Glucose Fasting Glucose Lactic Acid 3.6 H* Lactic Acid F/U @ 2Hr 2.7 H* Cancelled Lactic Acid F/U @ 4Hr Calcium Magnesium Iron TIBC % Saturation Unsat Iron Binding Total Bilirubin Direct Bilirubin AST ALT Alkaline Phosphatase B-Natriuretic Peptide Total Protein Albumin Vitamin B12 Folate TSH COVID-19 ([facility]) COVID-[facility] 05/08/22 05/09/22 05/09/22 21:31 05:59 05:59 MCV 101.1 H MCH 34.5 H MCHC 34.1 RDW 13.2 Plt Count 253 MPV 9.9 Immature Gran % (Auto) Neut % (Auto) Lymph % (Auto) [place] % (Auto) Eos % (Auto) Baso % (Auto) Lymph # (Auto) [place] # (Auto) Eos # (Auto) Baso # (Auto) Abs Immat Gran (auto) Absolute Neuts (auto) Absolute Nucleated RBC 0.000 Nucleated RBC % (auto) 0.0 Anion Gap 15 Estim Creat Clear Calc 72.8 Estimated GFR > 60 Random Glucose Fasting Glucose 201 H Lactic Acid Lactic Acid F/U @ 2Hr Lactic Acid F/U @ 4Hr 2.6 H* Calcium 9.0 Magnesium 1.8 Iron TIBC % Saturation Unsat Iron Binding Total Bilirubin Direct Bilirubin AST ALT Alkaline Phosphatase B-Natriuretic Peptide Total Protein Albumin Vitamin B12 Folate TSH COVID-19 ([facility]) COVID-19 Clin Com Assessment and Plan (1) Hepatic steatosis: Status: Acute Plan 72F with pmh of asthma/copd, htn, obesity, chronic diastolic chf, CKD III, hepatic steatosis, gerd, hld presented with sob dyspnea due to acute on chronic diastolic CHF continue IV Lasix, monitor electrolytes COPD/moderate persistent asthma Does not appear to be in acute exacerbation Duo nebs as needed Macrocytic anemia due to b12 defeciency will give 1000mcg IM once, then 1000mcg po daily Hepatic steatosis Likely component of alcohol and nonalcoholic fatty liver Hypertension, uncontrolled Diuresis, continue carvedilol, monitor, improving Obesity Weight loss Hyperlipidemia Statin CKD 3 Creatinine lower than baseline, currently 0.83 Lactic acidosis Due to albuterol, not sepsis Hypomagnesemia Possibly due to alcohol magnesuria Replace and monitor GERD PPI DVT prophylaxis Lovenox full code reason for continued hospitalization:ongoing iv diuresis for significant sob and edema Quality Stroke Does the patient have a stroke diagnosis?: No VTE Prior VTE?: No VTE Risk Level:: Medical - moderate - high VTE Device Contraindication: Treatment Not Indicated VTE Drug Contraindication: N/A - Med Ordered
--- NOTE | 2022-05-09 17:19 | PC.NURSE ---
Report given to Melvin LUNDBERG. PT will be transported to room 486 by transporter. PT aware.
[2022-05-09] MEDS: Magnesium Oxide 400 MG TABLET PO (17:47)
[2022-05-09] MEDS: Atorvastatin Calcium 40 MG TABLET PO (20:43)
[2022-05-09] MEDS: Enoxaparin Sodium 40 MG/0.4 ML SYRINGE SUBCUT (20:43)
[2022-05-09] MEDS: LORazepam 0.5 MG TABLET PO (20:48)
[2022-05-10 03:13] VITALS: BP 144/71; PULSE 67; RESP 16; TEMP 36.7; O2SAT 97
[2022-05-10] MEDS: Omeprazole 40 MG CAPSULE.DR PO (05:47)
[2022-05-10 06:25] LABS: Hemoglobin 10.7 g/dl (12.0-16.0); Mean Corpuscular HGB Conc 33.4 g/dl (31.0-35.0); Mean Corpuscular Hemoglobin 34.2 pg (27.0-33.0); Mean Corpuscular Volume 102.2 fL (80.0-98.0); Platelet Count 220 X10*3/uL (160-400); Red Blood Count 3.13 X10*6/uL (4.20-5.50); Red Cell Distribution Width 13.3 % (11.0-16.0)
[2022-05-10 07:00] LABS: Anion Gap 15 (12-20); Blood Urea Nitrogen 22 mg/dL (9-16); Calcium 8.8 mg/dL (8.4-10.2); Carbon Dioxide 30 mmol/L (22-29); Chloride 101 mmol/L (96-108); Creatinine Clr Calc Pharmacy 64.3; Estimated Glomerular Filt Rate 59; Glucose Fasting 107 mg/dL (60-99); Magnesium 1.5 mg/dL (1.6-2.6); Potassium 3.6 mmol/L (3.3-5.1); Sodium 142 mmol/L (135-145)
[2022-05-10 07:33] VITALS: BP 164/70; PULSE 65; RESP 18; TEMP 36.9; O2SAT 98
[2022-05-10] MEDS: carvediloL 12.5 MG TABLET 37.5 MG PO ×2 (08:36→19:15)
[2022-05-10] MEDS: Ferrous Sulfate 324 MG TABLET.DR PO (08:36)
[2022-05-10] MEDS: Cyanocobalamin (Vitamin B-12) 1,000 MCG TABLET 1000 MCG PO (08:36)
[2022-05-10] MEDS: cloNIDine HCL 0.1 MG TABLET PO ×2 (08:37→19:15)
[2022-05-10] MEDS: Folic Acid 1 MG TABLET PO (08:37)
[2022-05-10] MEDS: Magnesium Oxide 400 MG TABLET PO ×2 (08:37→19:15)
[2022-05-10] MEDS: Furosemide 20 MG TABLET PO ×2 (08:37→19:16)
[2022-05-10 08:48] VITALS: BMI 37.4
--- NOTE | 2022-05-10 10:39 | HO.PM.IMPN ---
Subjective Subjective Date of Service: 05/10/22 Interval History: cc: sob interval history:some improvement, still sob, more wheezy today Physical Exam Vital Signs: Vital Signs: Last Vital Signs Temp 98.5 F 05/10/22 07:33 Pulse 65 05/10/22 07:33 Resp 18 05/10/22 07:33 BP 164/70 H 05/10/22 07:33 Pulse Ox 98 05/10/22 07:33 O2 Del Method 05/10/22 07:33 BMI result Body Mass Index 37.4 General: AO X 3, no acute distress Resp: wheeze bilateral, no accessory muscles used CVS: S1,S2,RRR, 2+ edema GI: soft, non tender, non distended Neuro: motor grossly intact, alert Psych: appropriate affect, appropriate insight Objective Data Active Medications Albuterol/Ipratropium (Albuterol/Iprat 2.5/0.5mg 3 Ml Ampul.Neb) 3 ml INHALE Q4H PRN PRN Reason: sob Atorvastatin Calcium (Atorvastatin Calcium 40 Mg Tablet) 40 mg PO BEDTIME [facility] Last Admin: 05/09/22 20:43 Dose: 40 mg Documented By: SEEMA Carvedilol (Carvedilol 12.5 Mg Tablet) 37.5 mg PO BID [facility]; Protocol Last Admin: 05/10/22 08:36 Dose: 37.5 mg Documented By: DINO Clonidine HCl (Clonidine Hcl 0.1 Mg Tablet) 0.1 mg PO BID [facility]; Protocol Last Admin: 05/10/22 08:37 Dose: 0.1 mg Documented By: DINO Cyanocobalamin (Cyanocobalamin (Vitamin B-12) 1,000 Mcg Tablet) 1,000 mcg PO DAILY [facility] Last Admin: 05/10/22 08:36 Dose: 1,000 mcg Documented By: DINO Enoxaparin Sodium (Enoxaparin Sodium 40 Mg/0.4 Ml Syringe) 40 mg SUBCUT Q24H [facility] Last Admin: 05/09/22 20:43 Dose: 40 mg Documented By: SEEMA Ferrous Sulfate (Ferrous Sulfate 324 Mg Tablet.) 324 mg PO DAILY [facility] Last Admin: 05/10/22 08:36 Dose: 324 mg Documented By: DINO Folic Acid (Folic Acid 1 Mg Tablet) 1 mg PO DAILY [facility] Last Admin: 05/10/22 08:37 Dose: 1 mg Documented By: DINO Furosemide (Furosemide 20 Mg Tablet) 20 mg PO BID@0900,1800 [facility]; Protocol Last Admin: 05/10/22 08:37 Dose: 20 mg Documented By: DINO Lorazepam (Lorazepam 0.5 Mg Tablet) 0.5 mg PO BEDTIME PRN PRN Reason: anxiety Last Admin: 05/09/22 20:48 Dose: 0.5 mg Documented By: SEEMA Magnesium Oxide (Magnesium Oxide 400 Mg Tablet) 400 mg PO BIDPC [facility] Last Admin: 05/10/22 08:37 Dose: 400 mg Documented By: DINO Omeprazole (Omeprazole 40 Mg Capsule.) 40 mg PO DAILY@0630 [facility] Last Admin: 05/10/22 05:47 Dose: 40 mg Documented By: SEEMA Pharmacy Consult (Consult Rx Perform Med Rec) 1 each MISCELLANE ONCE PRN PRN Reason: Consult order Prednisone (Prednisone 20 Mg Tablet) 40 mg PO DAILY [facility] Labs CBC & Chem 7: 05/10/22 05:44 05/10/22 05:44 Labs: Laboratory Results - last 24 hr 05/10/22 05/10/22 05:44 05:44 MCV 102.2 H MCH 34.2 H MCHC 33.4 RDW 13.3 Plt Count 220 MPV 10.0 Absolute Nucleated RBC 0.000 Nucleated RBC % (auto) 0.0 Anion Gap 15 Estim Creat Clear Calc 64.3 Estimated GFR 59 Fasting Glucose 107 H Calcium 8.8 Magnesium 1.5 L Microbiology Microbiology Results: Microbiology 05/08/22 15:22 Blood Culture - Preliminary Blood - Venous No growth after 24 hours. 05/08/22 15:14 Blood Culture - Preliminary Blood - Venous No growth after 24 hours. Assessment and Plan (1) Hepatic steatosis: Status: Acute Plan 72F with pmh of asthma/copd, htn, obesity, chronic diastolic chf, CKD III, hepatic steatosis, gerd, hld presented with sob dyspnea due to acute on chronic diastolic CHF diuresed well, now back on maintance lasix 20mg po bid COPD/moderate persistent asthma with acute decompensation now wheezing Duo nebs as needed will start prednisone 40mg daily Macrocytic anemia due to b12 defeciency will give 1000mcg IM once, then 1000mcg po daily Hepatic steatosis Likely component of alcohol and nonalcoholic fatty liver Hypertension, uncontrolled Diuresis, continue carvedilol, monitor, improving Obesity Weight loss Hyperlipidemia Statin ? history CKD 3 Creatinine lower than reported baseline Lactic acidosis Due to albuterol, not sepsis Hypomagnesemia Possibly due to alcohol magnesuria Replace and monitor GERD PPI DVT prophylaxis Lovenox full code reason for continued hospitalization:still feeling to sob to feel safe at home Quality Stroke Does the patient have a stroke diagnosis?: No VTE Prior VTE?: No VTE Risk Level:: Medical - moderate - high VTE Device Contraindication: Treatment Not Indicated VTE Drug Contraindication: N/A - Med Ordered
[2022-05-10] MEDS: predniSONE 20 MG TABLET 40 MG PO (11:24)
[2022-05-10 11:32] VITALS: BP 121/57; PULSE 61; RESP 18; TEMP 36.3; O2SAT 98
--- NOTE | 2022-05-10 13:08 | MHC.CM.PN ---
Female 72 DX HF DP home no services family transport.
[2022-05-10 15:18] VITALS: BP 132/68; PULSE 63; RESP 20; TEMP 37.2; O2SAT 98
[2022-05-10] MEDS: Enoxaparin Sodium 40 MG/0.4 ML SYRINGE SUBCUT (19:15)
[2022-05-10] MEDS: Atorvastatin Calcium 40 MG TABLET PO (19:15)
[2022-05-10 20:00] VITALS: BP 160/77; PULSE 66; RESP 18; TEMP 36.2; O2SAT 97
[2022-05-10 23:31] VITALS: BP 149/75; PULSE 64; RESP 20; TEMP 35.9; O2SAT 97
[2022-05-10] MEDS: LORazepam 0.5 MG TABLET PO (23:41)
[2022-05-11 03:32] VITALS: BP 154/74; PULSE 64; RESP 20; TEMP 36.2; O2SAT 98
[2022-05-11] MEDS: Omeprazole 40 MG CAPSULE.DR PO (06:18)
[2022-05-11 06:41] LABS: Hematocrit 34.2 % (37.0-47.0); Hemoglobin 11.6 g/dl (12.0-16.0); Mean Corpuscular HGB Conc 33.9 g/dl (31.0-35.0); Mean Corpuscular Hemoglobin 34.4 pg (27.0-33.0); Mean Corpuscular Volume 101.5 fL (80.0-98.0); Mean Platelet Volume 10.3 fL (9.4-12.3); Platelet Count 251 X10*3/uL (160-400); Red Blood Count 3.37 X10*6/uL (4.20-5.50); Red Cell Distribution Width 12.5 % (11.0-16.0); White Blood Count 6.9 X10*3/uL (4.8-10.8)
[2022-05-11 07:25] LABS: Anion Gap 17 (12-20); Blood Urea Nitrogen 22 mg/dL (9-16); Calcium 8.9 mg/dL (8.4-10.2); Carbon Dioxide 27 mmol/L (22-29); Chloride 99 mmol/L (96-108); Creatinine Clr Calc Pharmacy 73.5; Estimated Glomerular Filt Rate > 60; Glucose Fasting 127 mg/dL (60-99); Potassium 3.7 mmol/L (3.3-5.1); Sodium 139 mmol/L (135-145)
[2022-05-11 07:52] VITALS: BP 181/83; PULSE 69; RESP 18; TEMP 36.3; O2SAT 97
[2022-05-11 07:54] VITALS: BP 177/85; PULSE 64
[2022-05-11 07:55] VITALS: BMI 37.3
[2022-05-11] MEDS: cloNIDine HCL 0.1 MG TABLET PO (07:56)
[2022-05-11] MEDS: predniSONE 20 MG TABLET 40 MG PO (07:56)
[2022-05-11] MEDS: Furosemide 20 MG TABLET PO (07:57)
[2022-05-11] MEDS: carvediloL 12.5 MG TABLET 37.5 MG PO (07:57)
[2022-05-11] MEDS: Folic Acid 1 MG TABLET PO (07:57)
[2022-05-11] MEDS: Cyanocobalamin (Vitamin B-12) 1,000 MCG TABLET 1000 MCG PO (07:57)
[2022-05-11] MEDS: Ferrous Sulfate 324 MG TABLET.DR PO (07:57)
[2022-05-11] MEDS: Magnesium Oxide 400 MG TABLET PO (07:57)
--- NOTE | 2022-05-11 10:21 | PM.DS ---
DS: Providers Provider Date of Service: 05/11/22 Date of admission: 05/08/22 18:35 Primary care physician: Ana Lilia Espinoza NP Consults: 05/11/22 08:29 Consult to Cardiology Routine Consulting Provider: Wayne Gilmore Reason for consultation: chf, patient request DS: Diagnosis Discharge Diagnosis (1) Hepatic steatosis: Status: Acute DS: Summary Hospital Course Hospital Course: from initial hpi: Chief Complaint: sob 72F with pmh of asthma/copd, htn, obesity, chronic diastolic chf, CKD III, hepatic steatosis, gerd, hld, presented with 3-4 days increasing sob, lower extremity edema. reports missing several days of lasix due to pharmacy mix up. sob worse on exertion, denies wheezing, fever, chest pain. in ED noted to be hypertenive, systolics in 190s, cxr unremarkable. hospital course: patient was admitted for dyspnea due to acute on chronic diastolic chf, she was treated with iv lasix and diuresed well, she will be transitioned back to oral lasix. course was complicated by copd/moderate persistent asthma with acute decompensation, she was treated with prednisone and duonebs, she will continue 5 more days of prednisone on discharge. she was noted to have macrocytic anemia due to b12 defeciency and will be discharged on b12 supplements. patient had uncontrolled hypertension, she had some improvement with diuresis, aldactone 25mg daily was added to her coreg. for her hepatic steeatosis due to AFLD and NAFLD, weight loss and alcohol cessation was recommended. for her obesity weight loss is recommended. for hld she will continue statin. patient mentioned history of CKD III, however, in hospital she appears to have normal GFR. patient had some hypomagnesemia that was replaced. for her GERD she was continued on PPI. patient is feeling better and will be discharged home. she should repeat bmp in about 1 week. Time Spent with Patient Time attestation: Total time spent providing and/or coordinating discharge services: Discharge coordination time: Greater than 30 minutes Quality: Safe Use of Opioids Does Pt have an Active Cancer Diagnosis on the Problem List?: No Quality: Stroke Does the patient have a stroke diagnosis?: No Physical Exam Vital Signs: Vital Signs: Last Vital Signs Temp 97.4 F 05/11/22 07:52 Pulse 64 05/11/22 07:54 Resp 18 05/11/22 07:52 BP 177/85 H 05/11/22 07:54 Pulse Ox 97 05/11/22 07:52 O2 Del Method 05/11/22 07:52 BMI result Body Mass Index 37.3 General: AO X 3, no acute distress Resp: CTA bilateral, no accessory muscles used CVS: S1,S2,RRR GI: soft, non tender, non distended Neuro: motor grossly intact, alert Psych: appropriate affect, appropriate insight DS: Data Data Completed and Pending Labs on day of discharge: Laboratory Results - last 24 hr 05/11/22 05/11/22 06:07 06:07 WBC 6.9 RBC 3.37 L Hgb 11.6 L Hct 34.2 L MCV 101.5 H MCH 34.4 H MCHC 33.9 RDW 12.5 Plt Count 251 MPV 10.3 Absolute Nucleated RBC 0.000 Nucleated RBC % (auto) 0.0 Sodium 139 Potassium 3.7 Chloride 99 Carbon Dioxide 27 Anion Gap 17 BUN 22 H Creatinine 0.82 Estim Creat Clear Calc 73.5 Estimated GFR > 60 Fasting Glucose 127 H Calcium 8.9 Preliminary micro results at discharge 05/08/22 15:22 Blood Culture - Preliminary Blood - Venous No growth after 48 hours. 05/08/22 15:14 Blood Culture - Preliminary Blood - Venous No growth after 48 hours. Discharge Plan Discharge Patient Disposition: Home, Self-Care Discharge Diagnosis: chf, copd Referrals: Ana Lilia Espinoza NP [Primary Care Provider] - 1 Week Discharge Medications: New spironolactone 25 mg Tablet 25 mg PO DAILY Qty: 30 0RF Protocol: Hold for SBP< HOLD for SBP < : 90 prednisone 20 mg Tablet 40 mg PO DAILY Qty: 10 0RF cyanocobalamin (vitamin B-12) [Vitamin B-12] 1,000 mcg Tablet 1,000 mcg PO DAILY Qty: 30 0RF Continued carvedilol 25 mg tablet 37.5 mg PO BID 90 Days Qty: 270 1RF albuterol 90 mcg/actuation Aerosol 90 mcg INHALATION Q4-6H PRN (Reason: Dyspnea) lorazepam [Ativan] 0.5 mg tablet 0.5 mg PO BEDTIME PRN (Reason: anxiety) Qty: 14 0RF folic acid 1 mg tablet 1 mg PO DAILY Qty: 30 0RF ferrous sulfate 325 mg (65 mg iron) tablet 325 mg PO DAILY Qty: 30 0RF clonidine HCl 0.1 mg tablet 1 tab PO BID cholecalciferol (vitamin D3) [Vitamin D3] 50 mcg (2,000 unit) Tablet 50 mcg PO DAILY fluticasone propion-salmeterol [Wixela Inhub] 250-50 mcg/dose blister with device 1 inh inhalation BID Qty: 60 1RF epinephrine 0.3 mg/0.3 mL auto-injector 0.3 mg IM Q20M PRN (Reason: anaphylaxis) Qty: 2 0RF Rx Instructions: for 2 doses pantoprazole 40 mg tablet,delayed release (DR/EC) 40 mg PO DAILY atorvastatin 40 mg tablet 40 mg PO DAILY furosemide 20 mg tablet 20 mg PO BID Discharge Orders: Discharge Order (Routine); Ordered 05/11/22 Ordered By: Tashi Rodriguez Diet: Advance to usual diet Activity on Discharge: As tolerated Stand Alone Forms: Patient Portal Discharge page Other Ambulatory Orders: Basic Metabolic Panel (Routine) Timeframe: 1 Week Facility: [facility] - Location: Laboratory Ordered By: Tashi Rodriguez Care Plan Goals: recovery Health Concerns: b12 defeciency, chf, copd, htn Plan of Treatment: b12 supplement, prednisone 5 more days, added aldactone, check bmp in one week Assessment: see above
--- NOTE | 2022-05-11 11:09 | MHC.CM.PN ---
PT TO DC HOME TODAY WITH NO SERVICES FAMILY TO TRANSPORT
--- NOTE | 2022-05-11 11:17 | P.CONCA_ITS ---
History of Present Illness History of Present Illness Date of Service: 05/11/22 Requesting physician: Tashi Rodriguez Consult reason: congestive heart failure Chief complaint: CHF Narrative: I was consulted to see Binta Hampton in cardiology consultation today for congestive heart failure. She came to the hospital Friday because of progres sive leg edema and shortness of breath and could not breathe. Her nurse at work still low to get emergency care. Patient says she had missed 2 doses of Lasix and then started developing significant leg edema and subsequently caution shortness of breath. She was initially wheezing a lot. Came to the hospital was noted to be in heart failure with elevated BNP. She was diuresed and since admission has diuresed more than a L. She says she feels better and her leg edema is improved. Shortness of breath improved and wheezing has improved with initiation of prednisone therapy. She is ready to go home. She requested a consult with me prior to being discharged. She has noticed recently elevated blood pressure but this may be related to the stress associated with work. Review of Systems Constitutional: Constitutional: Reports no additional constitutional complaints Eyes: Eyes: Reports no additional eye complaints ENT: Reports system reviewed and no additional complaints, except as documented Cardiovascular: Cardiovascular: Denies chest pain, Reports leg edema, Denies lightheadedness, Denies Loss of Consciousness, Denies palpitations and Reports dyspnea Respiratory: Respiratory: Reports cough, Reports dyspnea and Reports wheezing Gastrointestinal: Gastrointestinal: Reports no additional gastrointestinal complaints Musculoskeletal: Musculoskeletal: Reports no additional musculoskeletal complaints Integumentary/Breasts: Skin/Breast: Reports system reviewed and no additional complaints, except as docu Neurologic: Reports system reviewed and no additional complaints, except as documented Psychiatric: Psychiatric: Reports no additional psychiatric complaints Endocrine: Endocrine: Denies palpitations Hematologic/Lymphatic: Hematologic/Lymphatic: Reports no additional hematologic/lymphatic complaints Allergic/Immunologic: Allergic/Immunologic: Reports wheezing PMFSH Past Medical History Medical History (HFpEF) heart failure with preserved ejection fraction Arthritis Asthma Chronic kidney disease (CKD) stage G3a/A1, moderately decreased glomerular filtration rate (GFR) between 45-59 mL/min/1.73 square meter and albuminuria cr eatinine ratio less than 30 mg/g COPD (chronic obstructive pulmonary disease) Essential hypertension Gout Hepatic steatosis HTN (hypertension) Hypercholesteremia Inguinal hernia Other and unspecified hyperlipidemia Sliding hiatal hernia Family History Family History Father CHF (congestive heart failure) Mother CHF (congestive heart failure) Social History Social History Household Members: Family Household Members Other:: mom, 91 y.o. Housing: House Do you presently have visiting nurse or other home services: No Alcohol intake: never Patient Tobacco Use Status: Former Tobacco user Second Hand Smoke Exposure: No Advance Directives Date on File: 12/04/20 service: No Current occupational status: employed Meds Allergies Allergy/AdvReac Type Severity Reaction Status Date / Time shrimp Allergy Severe Anaphylaxis Verified 05/10/22 10:35 Penicillins Allergy Unknown UNKNOWN Verified 03/30/22 11:54 levofloxacin [From Levaquin] Allergy Unknown Verified 03/30/22 11:54 paroxetine [From Paxil] Allergy Unknown Verified 03/30/22 11:54 prochlorperazine Allergy Unknown Verified 03/30/22 11:54 [From Compazine] Active Medications: Current Medications Albuterol/Ipratropium (Albuterol/Iprat 2.5/0.5mg 3 Ml Ampul.Neb) 3 ml INHALE Q4H PRN PRN Reason: sob Atorvastatin Calcium (Atorvastatin Calcium 40 Mg Tablet) 40 mg PO BEDTIME [facility] Last Admin: 05/10/22 19:15 Dose: 40 mg Carvedilol (Carvedilol 12.5 Mg Tablet) 37.5 mg PO BID [facility]; Protocol Last Admin: 05/11/22 07:57 Dose: 37.5 mg Clonidine HCl (Clonidine Hcl 0.1 Mg Tablet) 0.1 mg PO BID [facility]; Protocol Last Admin: 05/11/22 07:56 Dose: 0.1 mg Cyanocobalamin (Cyanocobalamin (Vitamin B-12) 1,000 Mcg Tablet) 1,000 mcg PO DAILY JOS[facility] Last Admin: 05/11/22 07:57 Dose: 1,000 mcg Enoxaparin Sodium (Enoxaparin Sodium 40 Mg/0.4 Ml Syringe) 40 mg SUBCUT Q24H JOS[facility] Last Admin: 05/10/22 19:15 Dose: 40 mg Ferrous Sulfate (Ferrous Sulfate 324 Mg Tablet.Dr) 324 mg PO DAILY [facility] Last Admin: 05/11/22 07:57 Dose: 324 mg Folic Acid (Folic Acid 1 Mg Tablet) 1 mg PO DAILY [facility] Last Admin: 05/11/22 07:57 Dose: 1 mg Furosemide (Furosemide 20 Mg Tablet) 20 mg PO BID@0900,1800 [facility]; Protocol Last Admin: 05/11/22 07:57 Dose: 20 mg Lorazepam (Lorazepam 0.5 Mg Tablet) 0.5 mg PO BEDTIME PRN PRN Reason: anxiety Last Admin: 05/10/22 23:41 Dose: 0.5 mg Magnesium Oxide (Magnesium Oxide 400 Mg Tablet) 400 mg PO BIDPC [facility] Last Admin: 05/11/22 07:57 Dose: 400 mg Omeprazole (Omeprazole 40 Mg Capsule.) 40 mg PO DAILY@0630 [facility] Last Admin: 05/11/22 06:18 Dose: 40 mg Pharmacy Consult (Consult Rx Perform Med Rec) 1 each MISCELLANE ONCE PRN PRN Reason: Consult order Prednisone (Prednisone 20 Mg Tablet) 40 mg PO DAILY [facility] Last Admin: 05/11/22 07:56 Dose: 40 mg Spironolactone (Spironolactone 25 Mg Tablet) 25 mg PO DAILY [facility]; Protocol Home Medications Medication Instructions Recorded Confirmed Last Taken Type pantoprazole 40 mg tablet,delayed 40 mg PO DAILY 11/17/20 05/08/22 05/08/22 History release albuterol 90 mcg/actuation aerosol 90 mcg inhalation Q4-6H PRN Dyspnea 12/01/20 05/08/22 05/08/22 History inhaler atorvastatin 40 mg tablet 40 mg PO DAILY 03/12/21 05/08/22 05/08/22 History furosemide 20 mg tablet 20 mg PO BID 12/06/21 05/08/22 05/08/22 History clonidine HCl 0.1 mg tablet 1 tab PO BID 05/08/22 05/08/22 05/08/22 History cholecalciferol (vitamin D3) 50 50 mcg PO DAILY 05/09/22 05/09/22 Unknown History mcg (2,000 unit) tablet (Vitamin D3) Physical Exam Vital Signs: Vital Signs: Last Vital Signs Temp 97.4 F 05/11/22 07:52 Pulse 64 05/11/22 07:54 Resp 18 05/11/22 07:52 BP 177/85 H 05/11/22 07:54 Pulse Ox 97 05/11/22 07:52 O2 Del Method 05/11/22 07:52 BMI result Body Mass Index 37.3 Const: General: cooperative, comfortable, no acute distress, alert and awake Nutritional Appearance: obese Orientation/consciousness: patient oriented x3 Limitations: no limitations HEENT: Head: Yes normocephalic and Yes atraumatic Neck: Neck: Yes trachea midline, Yes supple and Yes no JVD Resp: Effort & Inspection: normal respiratory effort Auscultation: clear to auscultation bilaterally Cardio: Jugular venous distension: no JVD Palpation: normal PMI Rate: regular rate Rhythm: regular rhythm Heart sounds: S1 normal heart sound present, S2 normal heart sound present, no click, no gallops, no murmurs and no rubs GI: Auscultation: normal bowel sounds Skin: General skin exam: no rashes or lesions noted Neuro: General: patient oriented x3 and no focal motor deficits Extrem: General: Yes no clubbing, cyanosis or edema Psych: Appearance: grossly normal Objective Labs and Meds Result diagrams: 05/11/22 06:07 05/11/22 06:07 Lab results: Laboratory Results - last 24 hr 05/11/22 05/11/22 06:07 06:07 WBC 6.9 RBC 3.37 L Hgb 11.6 L Hct 34.2 L MCV 101.5 H MCH 34.4 H MCHC 33.9 RDW 12.5 Plt Count 251 MPV 10.3 Absolute Nucleated RBC 0.000 Nucleated RBC % (auto) 0.0 Sodium 139 Potassium 3.7 Chloride 99 Carbon Dioxide 27 Anion Gap 17 BUN 22 H Creatinine 0.82 Estim Creat Clear Calc 73.5 Estimated GFR > 60 Fasting Glucose 127 H Calcium 8.9 Assessment and Plan (1) Acute CHF: Status: Acute Patient presented with worsening fluid leg edema and shortness of breath along with wheezing. Component of both acute diastolic heart failure as well as bronchospastic airway disease. Currently doing well. Has been diuresed. Fluid status has improved. This happened probably because patient ran out of her Lasix. Discussed importance of appropriate diuretic therapy. Discussed heart failure management again. Daily weight monitoring and avoidance of salt loading was discussed. She understands. Her blood pressure is not well optimized will add Aldactone 25 mg to regimen both for heart failure management as well as for blood pressure control. As outpatient will decide whether she would benefit from Jardiance therapy. Continue carvedilol therapy. Importance of monitoring blood pressure at home was discussed. Will follow up in the clinic in 7-10 days after blood work. Management was discussed with Dr. Rodriguez. Patient can be discharged home. Thank you for allowing us to partake in the care Procedures Date of Service Date of Service: 05/11/22
[2022-05-11] MEDS: Spironolactone 25 MG TABLET PO (11:45)
[2022-05-11 12:00] VITALS: BP 130/66; PULSE 66; TEMP 36.1; O2SAT 96
== END 2022-05-11 13:56 | disposition home or self-care (01) | DRG 194 ==
LOC: HO.ED 17:18 → HO.EDOVER 18:43 → HO.IMC 05-09 17:02
PROVIDERS: Physician Assistant; Admitting Provider Internal Medicine; Emergency Provider Emergency Medicine; PCP Nurse Practitioner Family; Visit Provider Internal Medicine
DX: I13.0 Hypertensive heart and chronic kidney disease with heart failure and stage 1 through stage 4 chronic kidney disease, or unspecified chronic kidney disease (principal); E87.2 Acidosis; D51.9 Vitamin B12 deficiency anemia, unspecified; J44.9 Chronic obstructive pulmonary disease, unspecified; E83.42 Hypomagnesemia; K70.0 Alcoholic fatty liver; K75.81 Nonalcoholic steatohepatitis (NASH); N18.31 Chronic kidney disease, stage 3a; D63.1 Anemia in chronic kidney disease; E66.9 Obesity, unspecified; J45.40 Moderate persistent asthma, uncomplicated; E78.5 Hyperlipidemia, unspecified; I50.33 Acute on chronic diastolic (congestive) heart failure; Z20.822 Contact with and (suspected) exposure to COVID-19; Z68.37 Body mass index [BMI] 37.0-37.9, adult; Z87.891 Personal history of nicotine dependence; Z91.013 Allergy to seafood; Z88.0 Allergy status to penicillin; Z88.8 Allergy status to other drugs, medicaments and biological substances; Z79.51 Long term (current) use of inhaled steroids; Z79.899 Other long term (current) drug therapy
CPT/HCPCS: 36415; 71045; 80048; 80076; 82607; 82746; 83540; 83605; 83735; 83880; 84443; 84484; 85025; 85027; 87040; 87635; 93005; 94640; 96361; 96374; 96375; 99285; J1650; J1940; J2930; J3475

== ENCOUNTER 2022-05-20 16:53 | Outpatient (REF) | payer BC, SELFPAY ==
[2022-05-20 18:05] LABS: Anion Gap 18 (12-20); Blood Urea Nitrogen 53 mg/dL (9-16); Calcium 9.9 mg/dL (8.4-10.2); Carbon Dioxide 28 mmol/L (22-29); Chloride 99 mmol/L (96-108); Estimated Glomerular Filt Rate 31; Glucose Random 105 mg/dL (60-115); Potassium 5.2 mmol/L (3.3-5.1); Sodium 140 mmol/L (135-145)
[2022-05-23 11:17] LABS: NT-proBNP 104 pg/mL
== END 2022-05-20 16:54 | disposition home or self-care (01) ==
LOC: HO.LAB 16:53
PROVIDERS: PCP Nurse Practitioner Family; Visit Provider Internal Medicine Cardiovascular Disease
DX: I50.9 Heart failure, unspecified (principal)
CPT/HCPCS: 36415; 80048; 83880

== ENCOUNTER → 2022-06-28 08:15 | Outpatient (REF) | payer BC, SELFPAY ==
--- NOTE | ~2022-06-28 | US_ITS ---
EXAMINATION: US RETROPERITONEAL LIMITED (RENAL ONLY) CLINICAL INFORMATION: Heart failure. COMPARISON: None. TECHNIQUE: Routine retroperitoneal renal ultrasound was performed. Addition Doppler evaluation of retroperitoneal vasculature including kidneys and aorta was performed. FINDINGS: RENAL ULTRASOUND: RIGHT KIDNEY: 10.2 x 4.1 x 4.1 cm (SAG x AP x TRV). The kidney is normal in size, contour, and echogenicity. Renal cortical thickness is normal. There is anechoic cyst measuring 1.3 x 1.0 x 1.3 cm. No additional lesions seen. LEFT KIDNEY: 10.8 x 5.2 x 4.0 cm cm (SAG x AP x TRV). The kidney is normal in size, contour, and echogenicity. Renal cortical thickness is normal. No calculi or focal parenchymal lesions. No hydronephrosis. RETROPERITONEAL VASCULAR DOPPLER: RIGHT KIDNEY: Renal artery velocity proximal segment measures 117 cm/sec, midsegment measures 130 cm/sec and distal segment measures 90.9 cm/sec. Average segmental resistive index is 0.7. The visualized renal vein is patent. Renal aortic cannot be calculated due to elevated abdominal aortic velocity. LEFT KIDNEY: Renal artery velocity proximal segment with measures 110 cm/sec, midsegment measures 121 cm/sec and distal segment measures 133 cm/sec. Average resistive index is 0.77 within normal limits. Unable to calculate renal aortic ratio due to elevated midabdominal aortic velocity of 132 cm/sec. 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 Abdominal aortic velocity midsegment measures 132 cm/sec. US/US renal doppler IMPRESSION: Small cyst lower pole right kidney. Peak systolic renal velocities and resistive index in both kidneys are suggestive of normal renal Doppler exam without any suspicion for artery stenosis.
--- NOTE | ~2022-06-28 | US_ITS ---
EXAMINATION: US RETROPERITONEAL LIMITED (RENAL ONLY) CLINICAL INFORMATION: Heart failure. COMPARISON: None. TECHNIQUE: Routine retroperitoneal renal ultrasound was performed. Addition Doppler evaluation of retroperitoneal vasculature including kidneys and aorta was performed. FINDINGS: RENAL ULTRASOUND: RIGHT KIDNEY: 10.2 x 4.1 x 4.1 cm (SAG x AP x TRV). The kidney is normal in size, contour, and echogenicity. Renal cortical thickness is normal. There is anechoic cyst measuring 1.3 x 1.0 x 1.3 cm. No additional lesions seen. LEFT KIDNEY: 10.8 x 5.2 x 4.0 cm cm (SAG x AP x TRV). The kidney is normal in size, contour, and echogenicity. Renal cortical thickness is normal. No calculi or focal parenchymal lesions. No hydronephrosis. RETROPERITONEAL VASCULAR DOPPLER: RIGHT KIDNEY: Renal artery velocity proximal segment measures 117 cm/sec, midsegment measures 130 cm/sec and distal segment measures 90.9 cm/sec. Average segmental resistive index is 0.7. The visualized renal vein is patent. Renal aortic cannot be calculated due to elevated abdominal aortic velocity. LEFT KIDNEY: Renal artery velocity proximal segment with measures 110 cm/sec, midsegment measures 121 cm/sec and distal segment measures 133 cm/sec. Average resistive index is 0.77 within normal limits. Unable to calculate renal aortic ratio due to elevated midabdominal aortic velocity of 132 cm/sec. 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 Abdominal aortic velocity midsegment measures 132 cm/sec. US/US renal BI IMPRESSION: Small cyst lower pole right kidney. Peak systolic renal velocities and resistive index in both kidneys are suggestive of normal renal Doppler exam without any suspicion for artery stenosis.
--- NOTE | 2022-06-28 08:20 | CA_ITS ---
Transthoracic Echocardiogram Patient (Last, First, Middle): Binta Vidal Elena F (Elena) Gender: Female Date of : 1950 Age: 72 Procedure Date: 06/28/2022 Procedure Type: Transthoracic Echocardiogram Location: OP Height: 162.56 cm Weight: 97.52 kg BSA: 2.02 m2 Heart Rate: bpm BP: 116 / 66 mmHg Infant Caregiver: Referring MD: Wayne Gilmore MD Symptoms: I50.9 - Heart failure, unspecified Study Quality: Adequate ECG Rhythm: Sinus Conclusions: - The left ventricular systolic function is normal. The calculated ejection fraction is 56% by biplane method. - Evidence suggests grade II (moderate) diastolic dysfunction. - The left atrium is moderately dilated. - No obvious valvular pathology seen on this study. Findings Left Ventricle Normal left ventricular cavity size. There is mildly increased left ventricular wall thickness. The left ventricular systolic function is normal. The calculated ejection fraction is 56% by biplane method. There is no evidence of regional wall motion abnormalities. E/E prime ratio is between 8 and 15 consistent with indeterminate filling pressures. Evidence suggests grade II (moderate) diastolic dysfunction. Right Ventricle Normal right ventricular cavity size and systolic function. Atria The left atrium is moderately dilated. The right atrium is normal in size. Aortic Valve There is a normal trileaflet aortic valve. There is no aortic valve stenosis. There is no aortic valve regurgitation. Mitral Valve The mitral valve appears normal. There is no mitral valve regurgitation. There is no mitral valve stenosis. Pulmonic Valve The pulmonic valve is likely normal. Tricuspid Valve Normal tricuspid valve structure. There is trace tricuspid valve regurgitation. There is no evidence of pulmonary hypertension. Great Vessels The asc aorta is normal in size. Venous The inferior vena cava is normal in size and collapses greater than 50% with inspiration. Pericardium/Pleural There is no evidence of pericardial effusion. Prior Study Comparison No significant change compared to prior study dated: 12/01/2020. Recommendations, Care & Conclusions No obvious valvular pathology seen on this study. Measurements 2D Linear Measurements IVSd: 1.21 0.6-0.9/0.6-1.0 cm LVIDd: 4.95 3.9-5.3/4.2-5.9 cm LVIDd Index: 2.45 2.4-3.2/2.2-3.1 cm/m2 LVIDs: 2.85 2.0-3.6 cm LVPWd: 1.23 0.7-1.1 cm Ao Root: 3.40 2.1-3.5 cm LA Diam: 3.90 2.7-3.8/3.0-4.0 cm LAIDs Index: 1.93 1.5-2.3 cm/m2 LV Mass: 293.59 67-162/88-224 g LV Mass Index: 145.34 43-95/49-115 g/m2 LVOT Diam: 2.00 3.0+(-)1.3 cm 2D Systolic Function EF 4C: 54.70 >55% EF 2C: 56.20 >55% EF BiP: 55.50 >55% Mitral Valve MV Pk E: 0.93 MV PK A: 0.76 MV Decel Time: 197.00 E/A: 1.20 E'Lateral: 7.40 E'Medial: 5.98 E/E' Med: 15.50 E/E' Lat: 12.50 PHT: 58.00 MVA PHT: 3.79 Decel Richardson: 4.69 Aortic Valve AoV Pk Sergo: 1.69 AoV Mn Sergo: 1.07 AoV VTI: 0.45 AoV Pk Grad: 11.00 Aov Mn Grad: 5.00 LVOT LVOT Diam: 2.00 LVOT Area: 3.14 Diastolic Function MV Pk E: 0.93 MV Pk A: 0.76 E/A: 1.20 E'Medial: 5.98 E/E' Med: 15.50 E' Laterial: 7.40 E/E' Lat: 12.50 Right Ventricle TAPSE (mm): 21.00 TVS' Sergo: 12.00 Tricuspid Valve TR Pk Sergo: 1.58 TR Pk Grad: 10.00 RA Press: 3.00 RVSP: 13.00 Great Vessels Aorta Ao Root-2D: 3.40 2.0-3.7 cm Ao Asc: 3.50 2.1-3.4 cm Pulmonary Valve PV Pk Sergo: 0.98 Peak PV Grad: 4.00 Updated in Other Vendor System with Status of Final Roldan Cazares MD electronically signed on 06/29/2022 2:13:51 PM with status of Final
== END ==
LOC: HO.CARD 08:15
PROVIDERS: PCP Nurse Practitioner Family; Visit Provider Internal Medicine Cardiovascular Disease
DX: I50.9 Heart failure, unspecified (principal); N28.9 Disorder of kidney and ureter, unspecified; I99.8 Other disorder of circulatory system
CPT/HCPCS: 76775; 93306; 93975

== ENCOUNTER 2022-07-03 11:00 | Emergency (ER) | payer BC, SELFPAY ==
--- NOTE | ~2022-07-03 | XR_ITS ---
EXAMINATION: LEFT TIBIA-FIBULA. LEFT FOOT. LEFT ANKLE. LEFT KNEE. RIGHT KNEE. CLINICAL INFORMATION: Pain in all locations. Patient fell. COMPARISON: None TECHNIQUE: 2 views of the left tibia fibula. 2 views of the left foot. 3 views of the left ankle. 4 views left knee. 4 views right knee. FINDINGS: Left tibia-fibula: Left knee prosthesis intact. No fracture or destructive process. Left ankle: Mortise intact. No fracture, dislocation or destructive process. Left foot: There is faint lucency at the base of the fifth metatarsal but there is extreme osteopenia noted as well. Please correlate with exam. Left foot otherwise unremarkable. Joint spaces preserved. On the lateral view, there is productive change seen over the dorsal midfoot. Plantar spurring noted. Left knee: Left knee prosthesis intact. No fracture or dislocation or destructive process. Right knee: Spurring of the tibial spines. There is mild patellar spurring. There is no acute fracture, dislocation or destructive lesion. XR/XR knee LT 4V IMPRESSION: Only questionable finding is a faint lucency seen through the base of the fifth metatarsal. Please correlate with clinical exam.
--- NOTE | ~2022-07-03 | XR_ITS ---
EXAMINATION: LEFT TIBIA-FIBULA. LEFT FOOT. LEFT ANKLE. LEFT KNEE. RIGHT KNEE. CLINICAL INFORMATION: Pain in all locations. Patient fell. COMPARISON: None TECHNIQUE: 2 views of the left tibia fibula. 2 views of the left foot. 3 views of the left ankle. 4 views left knee. 4 views right knee. FINDINGS: Left tibia-fibula: Left knee prosthesis intact. No fracture or destructive process. Left ankle: Mortise intact. No fracture, dislocation or destructive process. Left foot: There is faint lucency at the base of the fifth metatarsal but there is extreme osteopenia noted as well. Please correlate with exam. Left foot otherwise unremarkable. Joint spaces preserved. On the lateral view, there is productive change seen over the dorsal midfoot. Plantar spurring noted. Left knee: Left knee prosthesis intact. No fracture or dislocation or destructive process. Right knee: Spurring of the tibial spines. There is mild patellar spurring. There is no acute fracture, dislocation or destructive lesion. XR/XR foot LT 2V IMPRESSION: Only questionable finding is a faint lucency seen through the base of the fifth metatarsal. Please correlate with clinical exam.
--- NOTE | ~2022-07-03 | XR_ITS ---
EXAMINATION: LEFT TIBIA-FIBULA. LEFT FOOT. LEFT ANKLE. LEFT KNEE. RIGHT KNEE. CLINICAL INFORMATION: Pain in all locations. Patient fell. COMPARISON: None TECHNIQUE: 2 views of the left tibia fibula. 2 views of the left foot. 3 views of the left ankle. 4 views left knee. 4 views right knee. FINDINGS: Left tibia-fibula: Left knee prosthesis intact. No fracture or destructive process. Left ankle: Mortise intact. No fracture, dislocation or destructive process. Left foot: There is faint lucency at the base of the fifth metatarsal but there is extreme osteopenia noted as well. Please correlate with exam. Left foot otherwise unremarkable. Joint spaces preserved. On the lateral view, there is productive change seen over the dorsal midfoot. Plantar spurring noted. Left knee: Left knee prosthesis intact. No fracture or dislocation or destructive process. Right knee: Spurring of the tibial spines. There is mild patellar spurring. There is no acute fracture, dislocation or destructive lesion. XR/XR ankle LT min 3V IMPRESSION: Only questionable finding is a faint lucency seen through the base of the fifth metatarsal. Please correlate with clinical exam.
--- NOTE | ~2022-07-03 | XR_ITS ---
EXAMINATION: LEFT TIBIA-FIBULA. LEFT FOOT. LEFT ANKLE. LEFT KNEE. RIGHT KNEE. CLINICAL INFORMATION: Pain in all locations. Patient fell. COMPARISON: None TECHNIQUE: 2 views of the left tibia fibula. 2 views of the left foot. 3 views of the left ankle. 4 views left knee. 4 views right knee. FINDINGS: Left tibia-fibula: Left knee prosthesis intact. No fracture or destructive process. Left ankle: Mortise intact. No fracture, dislocation or destructive process. Left foot: There is faint lucency at the base of the fifth metatarsal but there is extreme osteopenia noted as well. Please correlate with exam. Left foot otherwise unremarkable. Joint spaces preserved. On the lateral view, there is productive change seen over the dorsal midfoot. Plantar spurring noted. Left knee: Left knee prosthesis intact. No fracture or dislocation or destructive process. Right knee: Spurring of the tibial spines. There is mild patellar spurring. There is no acute fracture, dislocation or destructive lesion. XR/XR tibia fibula LT 2V IMPRESSION: Only questionable finding is a faint lucency seen through the base of the fifth metatarsal. Please correlate with clinical exam.
--- NOTE | ~2022-07-03 | XR_ITS ---
EXAMINATION: LEFT TIBIA-FIBULA. LEFT FOOT. LEFT ANKLE. LEFT KNEE. RIGHT KNEE. CLINICAL INFORMATION: Pain in all locations. Patient fell. COMPARISON: None TECHNIQUE: 2 views of the left tibia fibula. 2 views of the left foot. 3 views of the left ankle. 4 views left knee. 4 views right knee. FINDINGS: Left tibia-fibula: Left knee prosthesis intact. No fracture or destructive process. Left ankle: Mortise intact. No fracture, dislocation or destructive process. Left foot: There is faint lucency at the base of the fifth metatarsal but there is extreme osteopenia noted as well. Please correlate with exam. Left foot otherwise unremarkable. Joint spaces preserved. On the lateral view, there is productive change seen over the dorsal midfoot. Plantar spurring noted. Left knee: Left knee prosthesis intact. No fracture or dislocation or destructive process. Right knee: Spurring of the tibial spines. There is mild patellar spurring. There is no acute fracture, dislocation or destructive lesion. XR/XR knee RT 4V IMPRESSION: Only questionable finding is a faint lucency seen through the base of the fifth metatarsal. Please correlate with clinical exam.
[2022-07-03 11:04] VITALS: BP 136/92; PULSE 86; O2SAT 98
[2022-07-03 13:03] VITALS: BP 185/78; PULSE 69; RESP 18; TEMP 36.1; O2SAT 100; BMI 36.3
--- NOTE | 2022-07-03 13:09 | ED.LOWEXIN ---
HPI - Extremity Injury (Lower) General Chief Complaint: Extremity Injury, Lower <CARROL Reid - Last Filed: 07/08/22 15:22> Stated Complaint: L ANKLE PAIN S/P BUCKLED TO KNEES T-1 <CRAROL Reid - Last Filed: 07/08/22 15:22> Time Seen by Provider: 07/03/22 14:16 <CARROL Reid - Last Filed: 07/08/22 15:22> History of Present Illness HPI Narrative: Patient complains of left foot pain after twisting it when she went to stand up from the couch and somehow caught her foot on something and twisted it and and fell down to 1 knee further twisting it This happened 4 days ago and she has been limping since <CARROL Graff - Last Filed: 07/03/22 16:55> Related Data Home Medications: Home Medications Medication Instructions Recorded Confirmed pantoprazole 40 mg tablet,delayed 40 mg PO DAILY 11/17/20 05/21/22 release albuterol 90 mcg/actuation aerosol 90 mcg inhalation Q4-6H PRN Dyspnea 12/01/20 05/21/22 inhaler atorvastatin 40 mg tablet 40 mg PO DAILY 03/12/21 05/21/22 clonidine HCl 0.1 mg tablet 1 tab PO BID 05/08/22 05/21/22 cholecalciferol (vitamin D3) 50 50 mcg PO DAILY 05/09/22 05/21/22 mcg (2,000 unit) tablet (Vitamin D3) furosemide 20 mg tablet See Rx Instructions PO BID 05/21/22 05/21/22 Previous Rx's Medication Instructions Recorded epinephrine 0.3 mg/0.3 mL 0.3 mg (0.3 mL) IM Q20M PRN 02/23/21 injection, auto-injector anaphylaxis #2 ea fluticasone 250 mcg-salmeterol 50 1 inh inhalation BID #60 ea 02/23/21 mcg/dose blistr powdr for inhalation (Wixela Inhub) lorazepam 0.5 mg tablet (Ativan) 0.5 mg PO BEDTIME PRN anxiety #14 04/03/21 tabs ferrous sulfate 325 mg (65 mg 325 mg PO DAILY #30 tabs 11/06/21 iron) tablet folic acid 1 mg tablet 1 mg PO DAILY #30 tabs 11/06/21 carvedilol 25 mg tablet 37.5 mg PO BID 90 days #270 tabs 12/07/21 cyanocobalamin (vitamin B-12) 1,000 mcg PO DAILY #30 tabs 05/11/22 1,000 mcg tablet (Vitamin B-12) spironolactone 25 mg tablet 25 mg PO DAILY #30 tabs 05/11/22 acetaminophen 500 mg tablet 1,000 mg PO QID PRN pain #30 tabs 07/03/22 oxycodone 5 mg tablet 5 mg PO TID PRN pain #14 tabs 07/03/22 <CARROL Reid - Last Filed: 07/08/22 15:22> Allergies/Adverse Reactions: Allergies Allergy/AdvReac Type Severity Reaction Status Date / Time shrimp Allergy Severe Anaphylaxis Verified 07/03/22 13:08 Penicillins Allergy Unknown UNKNOWN Verified 07/03/22 13:08 levofloxacin [From Levaquin] Allergy Unknown Verified 07/03/22 13:08 paroxetine [From Paxil] Allergy Unknown Verified 07/03/22 13:08 prochlorperazine Allergy Unknown Verified 07/03/22 13:08 [From Compazine] <CARROL Reid - Last Filed: 07/08/22 15:22> Review of Systems Review of Systems: Positive for left foot pain Negatives are no headache no head injury no dizziness no confusion no fainting no feeling faint no neck pain no chest pain no palpitations no numbness no weakness no tingling no other extremity injuries <CARROL Graff - Last Filed: 07/03/22 16:55> Yes all other systems are reviewed and are negative <CARROL Graff - Last Filed: 07/03/22 16:55> [facility] Past Medical History Medical History: Medical History (HFpEF) heart failure with preserved ejection fraction Arthritis Asthma Chronic kidney disease (CKD) stage G3a/A1, moderately decreased glomerular filtration rate (GFR) between 45-59 mL/min/1.73 square meter and albuminuria creatinine ratio less than 30 mg/g COPD (chronic obstructive pulmonary disease) Essential hypertension Gout Hepatic steatosis HTN (hypertension) Hypercholesteremia Inguinal hernia Other and unspecified hyperlipidemia Sliding hiatal hernia <CARROL Reid - Last Filed: 07/08/22 15:22> Family History Family History: Family History Father CHF (congestive heart failure) Mother CHF (congestive heart failure) <CARROL Reid - Last Filed: 07/08/22 15:22> Social History Social History: Social History Household Members: Family Household Members Other:: mom, 91 y.o. Housing: House Do you presently have visiting nurse or other home services: No Alcohol intake: never Patient Tobacco Use Status: Former Tobacco user Second Hand Smoke Exposure: No Advance Directives Date on File: 12/04/20 service: No Current occupational status: employed <CARROL Reid - Last Filed: 07/08/22 15:22> Physical Exam Vital Signs: Vital Signs: Last Vital Signs Temp 97 F 07/03/22 13:03 Pulse 69 07/03/22 13:03 Resp 18 07/03/22 13:03 BP 185/78 H 07/03/22 13:03 Pulse Ox 100 07/03/22 13:03 O2 Del Method 07/03/22 13:03 BMI result Body Mass Index 36.3 <CARROL Reid - Last Filed: 07/08/22 15:22> Vital Signs: Last Vital Signs Temp 97 F 07/03/22 13:03 Pulse 69 07/03/22 13:03 Resp 18 07/03/22 13:03 BP 185/78 H 07/03/22 13:03 Pulse Ox 100 07/03/22 13:03 O2 Del Method 07/03/22 13:03 BMI result Body Mass Index 36.3 <CARROL Graff - Last Filed: 07/03/22 16:55> Course Course Course Narrative: PRICE. patient presents to the ED for left foot/ankle/leg pain after falling unto it due to fall. patient denies hitting head or loss of consciousness. Lower extremities xrays ordered. <CARROL Reid - Last Filed: 07/08/22 15:22> PRICE. patient presents to the ED for left foot/ankle/leg pain after falling unto it due to fall. patient denies hitting head or loss of consciousness. Lower extremities xrays ordered. Multiple x-rays were ordered as the patient did have some mild discomfort in her knee and her leg but the only tenderness and only significant discomfort was the left foot, left foot x-ray did show a question of a base of the 5th metatarsal fracture, this was an area of maximal tenderness and some swelling so advised patient she likely has a pharynx sure not well visualized on x-ray, she is given a ortho boot and discharged to follow with orthopedics <CARROL Graff - Last Filed: 07/03/22 16:55> Discharge Plan Discharge Clinical Impression: Foot fracture, left <CARROL Reid - Last Filed: 07/08/22 15:22> Patient Disposition: Home, Self-Care <CARROL Reid Last Filed: 07/08/22 15:22> Additional Instructions: X-ray shows saw a questionable area on the outside of the left foot which may be a fracture, when I examined it was very tender swollen and painful so I believe there is a fracture that was not seen well on x-ray Follow with orthopedist for further evaluation they may order further imaging if needed Return to the ER any time any worse condition or any concerns <CARROL Reid - Last Filed: 07/08/22 15:22> Prescriptions: New oxycodone 5 mg tablet 5 mg PO TID PRN (Reason: pain) Qty: 14 0RF Rx Instructions: Medication may cause drowsiness so no driving for 6 hours after taking, use with caution acetaminophen 500 mg tablet 1,000 mg PO QID PRN (Reason: pain) Qty: 30 0RF No Action carvedilol 25 mg tablet 37.5 mg PO BID 90 Days Qty: 270 1RF albuterol 90 mcg/actuation Aerosol 90 mcg INHALATION Q4-6H PRN (Reason: Dyspnea) lorazepam [Ativan] 0.5 mg tablet 0.5 mg PO BEDTIME PRN (Reason: anxiety) Qty: 14 0RF folic acid 1 mg tablet 1 mg PO DAILY Qty: 30 0RF ferrous sulfate 325 mg (65 mg iron) tablet 325 mg PO DAILY Qty: 30 0RF clonidine HCl 0.1 mg tablet 1 tab PO BID cholecalciferol (vitamin D3) [Vitamin D3] 50 mcg (2,000 unit) Tablet 50 mcg PO DAILY spironolactone 25 mg Tablet 25 mg PO DAILY Qty: 30 0RF Protocol: Hold for SBP< HOLD for SBP < : 90 cyanocobalamin (vitamin B-12) [Vitamin B-12] 1,000 mcg Tablet 1,000 mcg PO DAILY Qty: 30 0RF fluticasone propion-salmeterol [Wixela Inhub] 250-50 mcg/dose blister with device 1 inh inhalation BID Qty: 60 1RF epinephrine 0.3 mg/0.3 mL auto-injector 0.3 mg IM Q20M PRN (Reason: anaphylaxis) Qty: 2 0RF Rx Instructions: for 2 doses pantoprazole 40 mg tablet,delayed release (DR/EC) 40 mg PO DAILY atorvastatin 40 mg tablet 40 mg PO DAILY furosemide 20 mg tablet See Rx Instructions PO BID Rx Instructions: 1 tablet daily, Friday and Friday and 1 tablet twice a day other days orally 2 times a day; <CARROL Reid - Last Filed: 07/08/22 15:22> Referrals: Brooks Mendoza PA-C [Physician International Affairs Vice President] - (Probable base of the 5th metatarsal fracture) <CARROL Reid - Last Filed: 07/08/22 15:22> Stand Alone Forms: Work/School Release <CARROL Reid - Last Filed: 07/08/22 15:22> Interventions: ED Discharge Assessment Last Done: 07/03/22 16:21 <CARROL Reid - Last Filed: 07/08/22 15:22> Discharge Date/Time: 07/03/22 16:22 <CARROL Reid - Last Filed: 07/08/22 15:22>
== END 2022-07-03 16:22 | disposition home or self-care (01) ==
PROVIDERS: Emergency Provider Emergency Medicine; PCP Nurse Practitioner Family
DX: S92.352A Displaced fracture of fifth metatarsal bone, left foot, initial encounter for closed fracture (principal); S93.402A Sprain of unspecified ligament of left ankle, initial encounter; M25.562 Pain in left knee; M25.561 Pain in right knee; W01.0XXA Fall on same level from slipping, tripping and stumbling without subsequent striking against object, initial encounter; Y93.9 Activity, unspecified; Y92.9 Unspecified place or not applicable; Y99.9 Unspecified external cause status; Z79.899 Other long term (current) drug therapy; Z87.891 Personal history of nicotine dependence
CPT/HCPCS: 73564; 73590; 73610; 73620; 99282; 99283

== ENCOUNTER 2022-07-12 07:12 | Outpatient (REF) | payer BC, SELFPAY ==
--- NOTE | ~2022-07-12 | XR_ITS ---
EXAMINATION: XR FOOT, LEFT CLINICAL INFORMATION: Pain COMPARISON: Previous x-ray 07/03/2022 TECHNIQUE: AP, lateral, and oblique views of the left foot. FINDINGS: Bone alignment is normal. There is a fracture through the proximal phalanx of the fifth toe intra-articular with the MTP joint, uncertain age. No other fracture. Arthritis at the first MTP joint and midfoot/navicular cuneiform joints. Soft tissue calcification or ossification on the lateral view adjacent to the talus questionable for changes related to trauma. Calcaneal spurs. XR/XR foot LT min 3V IMPRESSION: Fracture of the proximal phalanx of the fifth toe intra-articular with the MTP joint, uncertain age. Soft tissue calcification or ossification on the lateral view adjacent to the talus questionable for changes related to trauma. Clinical correlation recommended. Arthritis at the first MTP joint and midfoot. Findings will be communicated by the [facility] work flow inbound call center representative.
== END 2022-07-12 07:13 | disposition home or self-care (01) ==
LOC: HO.HOSX 07:12
PROVIDERS: Visit Provider Physician Assistant
DX: M79.672 Pain in left foot (principal)
CPT/HCPCS: 73630

== ENCOUNTER 2022-07-29 14:31 | Outpatient (REF) | payer BC, SELFPAY ==
[2022-07-29 15:36] LABS: Anion Gap 14 (12-20); Blood Urea Nitrogen 21 mg/dL (9-16); Calcium 9.4 mg/dL (8.4-10.2); Carbon Dioxide 29 mmol/L (22-29); Chloride 108 mmol/L (96-108); Estimated Glomerular Filt Rate 54; Glucose Random 107 mg/dL (60-115); Potassium 4.3 mmol/L (3.3-5.1); Sodium 147 mmol/L (135-145)
[2022-07-29 16:08] LABS: B Type Natriuretic Peptide 153 pg/mL (<100)
== END 2022-07-29 14:32 | disposition home or self-care (01) ==
LOC: HO.LAB 14:31
PROVIDERS: PCP Nurse Practitioner Family; Visit Provider Internal Medicine Cardiovascular Disease
DX: I50.30 Unspecified diastolic (congestive) heart failure (principal); R09.89 Other specified symptoms and signs involving the circulatory and respiratory systems; Z79.899 Other long term (current) drug therapy
CPT/HCPCS: 36415; 80048; 83880; 93005

== ENCOUNTER 2022-08-09 12:56 | Inpatient (IN) | payer BC, SELFPAY ==
[2022-08-09] VITALS (15 sets, daily range): BP systolic 158–221; BP diastolic 51–109; PULSE 61–96; RESP 8–19; TEMP 36.5–36.6; O2SAT 95–100; BMI 36.4; BMI 37.5
--- NOTE | ~2022-08-09 | XR_ITS ---
EXAMINATION: XR ANKLE, LEFT CLINICAL INFORMATION: Post reduction ankle fracture. COMPARISON: Left ankle 08/09/2022, 1:31 PM TECHNIQUE: AP, lateral, and mortise views of the left ankle. 3:38 PM FINDINGS: Improved alignment of the trimalleolar fracture of ankle with placement of a cast. There is still widening of the ankle mortise at the medial clear space. XR/XR ankle LT min 3V IMPRESSION: Reduction of trimalleolar fracture with placement of cast.
--- NOTE | ~2022-08-09 | XR_ITS ---
EXAMINATION: XR LUMBOSACRAL SPINE CLINICAL INFORMATION: Back pain COMPARISON: None TECHNIQUE: Four views of the lumbosacral spine. FINDINGS: No fracture or subluxation. Grade 1 anterolisthesis of L4 on L5. Vertebral body alignment otherwise maintained. Vertebral body heights are maintained. Disc spaces are maintained. Facet arthropathy is seen throughout, greatest at the lower aspect of the lumbar spine. The sacroiliac joints are symmetric. The visualized sacrum is intact. Normal bowel gas pattern. XR/XR lumbar spine 2-3V IMPRESSION: Moderate multilevel degenerative changes of the lumbar spine.
--- NOTE | ~2022-08-09 | XR_ITS ---
EXAMINATION: XR ANKLE, LEFT CLINICAL INFORMATION: Slipped and fell COMPARISON: Left ankle radiographs 07/03/2022 TECHNIQUE: AP, lateral, and mortise views of the left ankle. FINDINGS: There is a laterally displaced Liang type B distal fibular fracture, minimally displaced posterior malleolar fracture and small probable avulsion fracture fragment adjacent to the medial talus with marked widening of the medial clear space consistent with deltoid ligament injury. No dislocation. No additional fracture. Diffuse soft tissue swelling. Posterior and plantar calcaneal spurs noted. XR/XR ankle LT min 3V IMPRESSION: 1. Laterally displaced Liang type B distal fibular fracture and minimally displaced posterior malleolar fracture. 2. Widening of the medial clear space consistent with deltoid ligament injury and suspected avulsion fracture fragment adjacent to the medial talus.
--- NOTE | ~2022-08-09 | FL_ITS ---
EXAMINATION: Intraoperative fluoroscopy CLINICAL INFORMATION: Left ankle ORIF COMPARISON: Left ankle x-rays 08/09/2022 TECHNIQUE: Intraoperative fluoroscopy was provided for use by Dr. Trimble. A total of 2 images were saved to PACS. A radiologist was not present during imaging. Today's dictation is only for administrative purposes to document intraoperative fluoroscopic usage. TOTAL FLUOROSCOPIC TIME: 0.3 minutes FL/FL guidance in OR FINDINGS~\^^ Intraoperative fluoroscopy provided for use by Dr. Trimble. Please see operative note for detailed findings.
[2022-08-09 14:06] LABS: MANUAL DIFF FLAG NO
[2022-08-09 14:15] LABS: Basophils Percent Auto 0.6 % (0-2); Eosinophils Absolute Auto 0.1 X10*3/uL (0.0-0.4); Eosinophils Percent Auto 1.9 % (0-4); Hematocrit 31.5 % (37.0-47.0); Hemoglobin 10.5 g/dl (12.0-16.0); Imm Gran Abs Auto 0.02 X10*3/uL (0.00-0.03); Imm Gran Pct Auto 0.4 % (0.0-0.4); Lymphocytes Absolute Auto 0.9 X10*3/uL (1.2-4.9); Lymphocytes Percent Auto 17.5 % (20-40); Mean Corpuscular HGB Conc 33.3 g/dl (31.0-35.0); Mean Corpuscular Hemoglobin 34.2 pg (27.0-33.0); Mean Corpuscular Volume 102.6 fL (80.0-98.0); Mean Platelet Volume 9.5 fL (9.4-12.3); Monocytes Absolute Auto 0.5 X10*3/uL (0.1-1.2); Monocytes Percent Auto 8.5 % (2-11); Neutrophils Absolute Auto 3.8 x10*3/uL (2.0-8.3); Neutrophils Percent Auto 71.1 % (45-73); Platelet Count 270 X10*3/uL (160-400); Red Blood Count 3.07 X10*6/uL (4.20-5.50); Red Cell Distribution Width 13.1 % (11.0-16.0); White Blood Count 5.3 X10*3/uL (4.8-10.8)
[2022-08-09] MEDS: Morphine Sulfate 4 MG/ML CARTRIDGE IVPUSH (14:25)
--- NOTE | 2022-08-09 14:29 | ED_ITS ---
HPI - Extremity Injury (Lower) General Chief Complaint: Fall Stated Complaint: FALL,ANKLE PAIN Time Seen by Provider: 08/09/22 14:20 Source: patient and EMS Mode of arrival: EMS Limitations: no limitations History of Present Illness HPI Narrative: 72-year-old female with history of psoriasis presents to the emergency department complaining of left ankle pain. She states she was out shopping when she tripped and fell in the snow. Patient has obvious deformity to left ankle she denies head injury she denies nausea vomiting or diarrhea. MD complaint: ankle injury Related Data Home Medications Medication Instructions Recorded Confirmed pantoprazole 40 mg tablet,delayed 40 mg PO DAILY 11/17/20 05/21/22 release albuterol 90 mcg/actuation aerosol 90 mcg inhalation Q4-6H PRN Dyspnea 12/01/20 07/29/22 inhaler atorvastatin 40 mg tablet 40 mg PO DAILY 03/12/21 07/29/22 clonidine HCl 0.1 mg tablet 1 tab PO BID 05/08/22 07/29/22 cholecalciferol (vitamin D3) 50 50 mcg PO DAILY 05/09/22 07/29/22 mcg (2,000 unit) tablet (Vitamin D3) furosemide 20 mg tablet See Rx Instructions PO BID 05/21/22 07/29/22 losartan 25 mg tablet 25 mg PO DAILY 07/12/22 07/29/22 Previous Rx's Medication Instructions Recorded epinephrine 0.3 mg/0.3 mL 0.3 mg (0.3 mL) IM Q20M PRN 02/23/21 injection, auto-injector anaphylaxis #2 ea fluticasone 250 mcg-salmeterol 50 1 inh inhalation BID #60 ea 02/23/21 mcg/dose blistr powdr for inhalation (Wixela Inhub) lorazepam 0.5 mg tablet (Ativan) 0.5 mg PO BEDTIME PRN anxiety #14 04/03/21 tabs ferrous sulfate 325 mg (65 mg 325 mg PO DAILY #30 tabs 11/06/21 iron) tablet folic acid 1 mg tablet 1 mg PO DAILY #30 tabs 11/06/21 cyanocobalamin (vitamin B-12) 1,000 mcg PO DAILY #30 tabs 05/11/22 1,000 mcg tablet (Vitamin B-12) acetaminophen 500 mg tablet 1,000 mg PO QID PRN pain #30 tabs 07/03/22 carvedilol 25 mg tablet 37.5 mg PO BID #90 tabs 07/11/22 Allergies Allergy/AdvReac Type Severity Reaction Status Date / Time shrimp Allergy Severe Anaphylaxis Verified 07/22/22 15:36 Penicillins Allergy Unknown UNKNOWN Verified 07/22/22 15:36 levofloxacin [From Levaquin] Allergy Unknown Verified 07/22/22 15:36 paroxetine [From Paxil] Allergy Unknown Verified 07/22/22 15:36 prochlorperazine Allergy Unknown Verified 07/22/22 15:36 [From Compazine] Review of Systems Review of Systems: Review of systems: General: Patient denies any fever chills recent illness or falls Musculoskeletal: Denies back pain or body aches or other injuries HEENT: denies headache, runny nose, ear pain Respiratory: denies shortness of breath, cough Cardiovascular: no chest pain or palpitations : denies dysuria, frequency Abdomen: no nausea vomiting denies abdominal pain Extremities: Left ankle pain and swelling Skin: no diaphoresis Yes all other systems are reviewed and are negative [facility] Past Medical History Medical History (Updated 08/09/22 @ 15:49 by Daniel Goncalves DO) (HFpEF) heart failure with preserved ejection fraction Acute CHF Arthritis Asthma Chronic kidney disease (CKD) stage G3a/A1, moderately decreased glomerular filtration rate (GFR) between 45-59 mL/min/1.73 square meter and albuminuria creatinine ratio less than 30 mg/g COPD (chronic obstructive pulmonary disease) Essential hypertension Gout Hepatic steatosis HTN (hypertension) Hypercholesteremia Inguinal hernia Other and unspecified hyperlipidemia Sliding hiatal hernia Surgical History History of total left knee replacement Family History Family History Father CHF (congestive heart failure) Mother CHF (congestive heart failure) Social History Social History Household Members: Family Household Members Other:: mom, 91 y.o. 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 Physical Exam Vital Signs: Vital Signs: Last Vital Signs Temp 97.7 F 08/09/22 13:16 Pulse 62 08/09/22 15:50 Resp 12 08/09/22 15:50 BP 221/96 H 08/09/22 15:50 Pulse Ox 100 08/09/22 15:50 O2 Del Method 08/09/22 15:50 Oxygen Flow Rate 0 08/09/22 15:19 BMI result Body Mass Index 36.4 General: Well-appearing well-nourished in no signs of distress HEENT: Normocephalic atraumatic Neck: No signs of JVD, no masses no tenderness or lymphadenopathy Cardiovascular: Regular rate and rhythm Respiratory: Clear to auscultation bilaterally Abdomen: Soft nontender no masses rectal exam performed guiac negative nurse quality confirmed. Extremities: Concern for a left ankle swelling and obvious deformity Normal pedal pulses no signs of edema Skin: Dry warm no rashes Back: No tenderness full ROM Medications Administered Discontinued Medications Generic Name Dose Route Start Last Admin Trade Name Beth PRN Reason Stop Dose Admin Ketamine HCl 150 mg 08/09/22 15:15 08/09/22 15:52 Ketamine Hcl/Ns 100 Mg/10 Ml Syringe 1 mg/kg (99.337 mg) 08/09/22 15:16 100 mg IVPUSH Administration ONCE ONE Morphine Sulfate 4 mg 08/09/22 14:21 08/09/22 14:25 Morphine Sulfate 4 Mg/Ml Cartridge IVPUSH 08/09/22 14:22 4 mg ONCE ONE Administration Protocol Ondansetron HCl 4 mg 08/09/22 14:48 08/09/22 15:53 Ondansetron Hcl 4 Mg/2 Ml Vial IVPUSH 08/09/22 14:49 Not Given ONCE ONE Medical Decision Making Medical Decision Making MDM Narrative: Concern for ankle fracture trimalleolar fracture dislocation will send patient for x-ray of the patient's morphine. 1430 patient has a trimalleolar fracture of the left ankle I will use conscious sedation on the patient to reduce the ankle and splinted in place and speak with Orthopedics. [address] in the patient in for placement we will try to ambulate with crutches she ambulates with a walker at baseline due to right knee pain and left knee replacement in the past. 1554 Adequate reduction of fracture per radiology read. I will have the patient signed out pending ambulation trial with crutches vs placement. Differential Diagnosis Differential Diagnoses: The differential diagnosis associated with the presentation includes Total evaluation the patient had her head has no other complaints at this time. Admission/Observation Consideration of admission/observation: Escalation of care including admission/observation considered Consult Healthcare Provider Management of the patient was discussed with: Automation Consultant Lab Data [facility] Lab Attestation statement: I reviewed the patient's lab results. Result Diagrams: 08/09/22 14:01 08/09/22 14:01 Labs: Lab Results 08/09/22 08/09/22 Range/Units 14:01 14:01 WBC 5.3 (4.8-10.8) X10*3/uL RBC 3.07 L (4.20-5.50) X10*6/uL Hgb 10.5 L (12.0-16.0) g/dl Hct 31.5 L (37.0-47.0) % MCV 102.6 H (80.0-98.0) fL MCH 34.2 H (27.0-33.0) pg MCHC 33.3 (31.0-35.0) g/dl RDW 13.1 (11.0-16.0) % Plt Count 270 (160-400) X10*3/uL MPV 9.5 (9.4-12.3) fL Immature Gran % (Auto) 0.4 (0.0-0.4) % Neut % (Auto) 71.1 (45-73) % Lymph % (Auto) 17.5 L (20-40) % Davis % (Auto) 8.5 (2-11) % Eos % (Auto) 1.9 (0-4) % Baso % (Auto) 0.6 (0-2) % Lymph # (Auto) 0.9 L (1.2-4.9) X10*3/uL Davis # (Auto) 0.5 (0.1-1.2) X10*3/uL Eos # (Auto) 0.1 (0.0-0.4) X10*3/uL Baso # (Auto) 0.0 (0.0-0.2) X10*3/uL Abs Immat Gran (auto) 0.02 (0.00-0.03) X10*3/uL Absolute Neuts (auto) 3.8 (2.0-8.3) x10*3/uL Absolute Nucleated RBC 0.000 (0.0-0.012) X10*3/uL Nucleated RBC % (auto) 0.0 (0.0-0.2) /100WBC Sodium 140 (135-145) mmol/L Potassium 4.3 (3.3-5.1) mmol/L Chloride 102 (96-108) mmol/L Carbon Dioxide 28 (22-29) mmol/L Anion Gap 14 (12-20) BUN 28 H (9-16) mg/dL Creatinine 1.24 (0.5-1.4) mg/dL Estim Creat Clear Calc 49.2 Estimated GFR 43 Random Glucose 105 (60-115) mg/dL Calcium 8.7 D (8.4-10.2) mg/dL Total Bilirubin 0.7 (0.0-1.0) mg/dL AST 19 (5-31) U/L ALT 7 (0-31) U/L Alkaline Phosphatase 87 (39-117) U/L Total Protein 6.5 (6.5-8.0) g/dL Albumin 3.8 (3.5-5.0) g/dL Radiology Impression Discussion of test interpretation with radiology: I discussed test interpretation with the radiologist and I have reviewed the radiologist's reading. Radiologist Impression: Trimalleolar fracture of the left ankle Procedures Orthopedic Fracture Reduction Fracture #1: Time Out Performed: Yes Side: left Fracture Reduction Location: tibia and fibula Analgesia: procedural sedation Technique: direct manipulation and traction/counter-traction Post Reduction X-rays Demonstrate: acceptable reduction Post-reduction neuro exam: intact Post-reduction vascular exam: intact Splint Applied: Yes Patient Tolerated Procedure: well and no complications Additional Comments: Conscious sedation performed with 50 mg of ketamine fell asleep but still was fighting. I gave another 50 mg and then I was able to flex the hip and bend the knee to 90 degrees then held the toe and straightened out the leg. No reduction felt I then performed some manipulation directly after adequete sedation with ketamine. Patient was splint in place while I held the toe up. Patient woke up without any vomiting. She briefly did go down to a respiratory rate of 8 and oxygen saturation of 88 but improved with blow by oxygen. Discharge Plan Discharge Clinical Impression: Closed left trimalleolar fracture, Hx of reduction of closed fracture Patient Disposition: Still a Patient Instructions: Ankle Fracture (ED) Additional Instructions: Please call to follow up for your ankle Prescriptions: No Action carvedilol 25 mg tablet 37.5 mg PO BID Qty: 90 5RF albuterol 90 mcg/actuation Aerosol 90 mcg INHALATION Q4-6H PRN (Reason: Dyspnea) lorazepam [Ativan] 0.5 mg tablet 0.5 mg PO BEDTIME PRN (Reason: anxiety) Qty: 14 0RF folic acid 1 mg tablet 1 mg PO DAILY Qty: 30 0RF ferrous sulfate 325 mg (65 mg iron) tablet 325 mg PO DAILY Qty: 30 0RF clonidine HCl 0.1 mg tablet 1 tab PO BID cholecalciferol (vitamin D3) [Vitamin D3] 50 mcg (2,000 unit) Tablet 50 mcg PO DAILY cyanocobalamin (vitamin B-12) [Vitamin B-12] 1,000 mcg Tablet 1,000 mcg PO DAILY Qty: 30 0RF acetaminophen 500 mg tablet 1,000 mg PO QID PRN (Reason: pain) Qty: 30 0RF fluticasone propion-salmeterol [Wixela Inhub] 250-50 mcg/dose blister with device 1 inh inhalation BID Qty: 60 1RF epinephrine 0.3 mg/0.3 mL auto-injector 0.3 mg IM Q20M PRN (Reason: anaphylaxis) Qty: 2 0RF Rx Instructions: for 2 doses pantoprazole 40 mg tablet,delayed release (DR/EC) 40 mg PO DAILY atorvastatin 40 mg tablet 40 mg PO DAILY furosemide 20 mg tablet See Rx Instructions PO BID Rx Instructions: 1 tablet daily, Friday and Friday and 1 tablet twice a day other days orally 2 times a day; losartan 25 mg tablet 25 mg PO DAILY Referrals: Chino Trimble MD [Physician] - (Please call to follow up for your ankle)
[2022-08-09 14:30] LABS: Alanine Aminotransferase 7 U/L (0-31); Albumin Level 3.8 g/dL (3.5-5.0); Alkaline Phosphatase 87 U/L (39-117); Anion Gap 14 (12-20); Aspartate Amino Transferase 19 U/L (5-31); Bilirubin Total 0.7 mg/dL (0.0-1.0); Blood Urea Nitrogen 28 mg/dL (9-16); Calcium 8.7 mg/dL (8.4-10.2); Carbon Dioxide 28 mmol/L (22-29); Chloride 102 mmol/L (96-108); Creatinine Clr Calc Pharmacy 49.2; Estimated Glomerular Filt Rate 43; Glucose Random 105 mg/dL (60-115); Potassium 4.3 mmol/L (3.3-5.1); Sodium 140 mmol/L (135-145); Total Protein 6.5 g/dL (6.5-8.0)
--- NOTE | 2022-08-09 15:44 | PC.NURSE ---
pt awake and alert following conscious sedation. x ray at bedside to complete post procedure scan to verify re-alignment. pt awake and alert to person place self and situation. denies pain at this time.
--- NOTE | 2022-08-09 15:48 | ECG_ITS ---
Test Reason : FALL Blood Pressure : / mmHG Vent. Rate : 057 BPM Atrial Rate : 057 BPM P-R Int : 168 ms QRS Dur : 102 ms QT Int : 474 ms P-R-T Axes : 073 003 012 degrees QTc Int : 461 ms Sinus bradycardia Otherwise normal ECG When compared with ECG of 08-MAY-2022 17:56, Vent. rate has decreased BY 41 BPM Referred By: Daniel Goncalves Electronically Signed By:BREA NGUYEN
[2022-08-09] MEDS: Ketamine HCl/NS 100 MG/10 ML SYRINGE 150 MG IVPUSH (15:52)
--- NOTE | 2022-08-09 17:06 | P.HPHOSP_ITS ---
History of Present Illness Date of Service: 08/09/22 Attending physician on admission: Keerthi Tai Chief Complaint: Left foot pain this is a 72-year-old female who was brought to the emergency department after sustaining a fall. She had finished grocery shopping and was returning the [employer] cart to the store entrance when she lost her balance and fell, The grocery cart fell on top of her and her left ankle got stuck underneath her. She had immediate onset of pain and was unable to bear weight on her left leg. she was brought to the emergency department for evaluation where imaging for left ankle revealed a left trimalleolar fracture. This was reduced in the emergency department and she was placed in a temporary cast. The orthopedic team was consulted and do not plan for inpatient surgical intervention. Patient's blood pressure in the emergency department was noted to be in the 200s. She denies any chest pain, headache, vision changes. The decision was made to admit her to the hospital for further management of left ankle pain, uncontrolled blood pressure. Review of Systems Review of Systems: Yes all other systems are reviewed and are negative Constitutional: Constitutional: Denies chills and Denies fever(s) Cardiovascular: Cardiovascular: Denies chest pain and Denies palpitations Respiratory: Respiratory: Denies cough Gastrointestinal: Gastrointestinal: Denies abdominal pain Endocrine: Endocrine: Denies palpitations [facility], [facility] Medical History (HFpEF) heart failure with preserved ejection fraction Acute CHF Arthritis Asthma Chronic kidney disease (CKD) stage G3a/A1, moderately decreased glomerular filtration rate (GFR) between 45-59 mL/min/1.73 square meter and albuminuria creatinine ratio less than 30 mg/g COPD (chronic obstructive pulmonary disease) Essential hypertension Gout Hepatic steatosis HTN (hypertension) Hypercholesteremia Inguinal hernia Other and unspecified hyperlipidemia Sliding hiatal hernia Functional capacity: uses cane/walker Family History Father CHF (congestive heart failure) Mother CHF (congestive heart failure) Surgical History History of total left knee replacement Social History (Updated 08/09/22 @ 17:10 by CARROL Eller) Household Members: Family Household Members Other:: mom, 91 y.o. 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 Meds Allergies Allergy/AdvReac Type Severity Reaction Status Date / Time shrimp Allergy Severe Anaphylaxis Verified 07/22/22 15:36 Penicillins Allergy Unknown UNKNOWN Verified 07/22/22 15:36 levofloxacin [From Levaquin] Allergy Unknown Verified 07/22/22 15:36 paroxetine [From Paxil] Allergy Unknown Verified 07/22/22 15:36 prochlorperazine Allergy Unknown Verified 07/22/22 15:36 [From Compazine] Active Medications: Current Medications Acetaminophen (Acetaminophen 325 Mg Tablet) 650 mg PO Q6H PRN PRN Reason: Pain, Mild (Pain Scale 1-3) Benzonatate (Benzonatate 100 Mg Capsule) 100 mg PO TID PRN PRN Reason: Cough Enoxaparin Sodium (Enoxaparin Sodium 40 Mg/0.4 Ml Syringe) 40 mg SUBCUT Q24H [facility] Melatonin (Melatonin 3 Mg Tablet) 3 mg PO BEDTIME PRN PRN Reason: Insomnia Morphine Sulfate (Morphine Sulfate 4 Mg/Ml Cartridge) 4 mg IVPUSH Q4H PRN; Protocol PRN Reason: Pain, Severe (Pain Scale 7-10) Ondansetron HCl (Ondansetron Hcl 4 Mg/2 Ml Vial) 4 mg IVPUSH Q8H PRN PRN Reason: Nausea and Vomiting Oxycodone HCl (Oxycodone Hcl Immed Release 5 Mg Tablet) 5 mg PO Q6H PRN PRN Reason: Pain, Moderate (Pain Scale 4-6 Pharmacy Consult (Consult Rx Perform Med Rec) 1 each MISCELLANE ONCE PRN PRN Reason: Consult order Pharmacy Consult (Consult Rx Perform Med Rec) 1 each MISCELLANE ONCE PRN PRN Reason: Consult order Sodium Chloride (0.9 % Sodium Chloride Flush 3 Ml Syringe) [facility] Medications Medication Instructions Recorded Confirmed Last Taken Type pantoprazole 40 mg tablet,delayed 40 mg PO DAILY 11/17/20 08/09/22 08/09/22 History release atorvastatin 40 mg tablet 40 mg PO DAILY 03/12/21 08/09/22 08/09/22 History clonidine HCl 0.1 mg tablet 2 tab PO BEDTIME 05/08/22 08/09/22 08/08/22 History losartan 25 mg tablet 25 mg PO DAILY 07/12/22 08/09/22 08/09/22 History albuterol sulfate 90 mcg/actuation 2 puff inhalation Q6H PRN 08/09/22 08/09/22 Unknown History aerosol inhaler Respiratory Distress diphenhydramine HCl 25 mg capsule 25 mg PO DAILY 08/09/22 08/09/22 08/09/22 History (Benadryl) furosemide 20 mg tablet 20 mg PO MOWEFR@0900 08/09/22 08/09/22 08/09/22 History furosemide 40 mg tablet 40 mg PO SUTUTHSA@0900 08/09/22 08/09/22 Unknown History lorazepam 0.5 mg tablet (Ativan) 0.5 mg PO BEDTIME PRN ANXIETY/SLEEP 08/09/22 08/09/22 Unknown History Physical Exam Vital Signs and Narrative: Vital Signs: Last Vital Signs Temp 97.7 F 08/09/22 13:16 Pulse 62 08/09/22 15:50 Resp 12 08/09/22 15:50 BP 221/96 H 08/09/22 15:50 Pulse Ox 100 08/09/22 15:50 O2 Del Method 08/09/22 15:50 Oxygen Flow Rate 0 08/09/22 15:19 BMI result Body Mass Index 36.4 Const: General: cooperative, no acute distress, alert and awake Nutritional Appearance: overweight Orientation/consciousness: patient oriented x3 Resp: Effort & Inspection: normal respiratory effort and able to speak in complete sentences Cardio: Rate: regular rate GI: Inspection: No distended Palpation (GI): Soft to palpation Neuro: General: patient oriented x3 and CN's II-XI intact bilaterally Extrem: Other: left lower extremity in splint from foot to knee Results Labs CBC and Chem 7: 08/09/22 14:01 08/09/22 14:01 Labs: Laboratory Results - last 24 hr 08/09/22 08/09/22 14:01 14:01 MCV 102.6 H MCH 34.2 H MCHC 33.3 RDW 13.1 Plt Count 270 MPV 9.5 Immature Gran % (Auto) 0.4 Neut % (Auto) 71.1 Lymph % (Auto) 17.5 L Maries % (Auto) 8.5 Eos % (Auto) 1.9 Baso % (Auto) 0.6 Lymph # (Auto) 0.9 L Maries # (Auto) 0.5 Eos # (Auto) 0.1 Baso # (Auto) 0.0 Abs Immat Gran (auto) 0.02 Absolute Neuts (auto) 3.8 Absolute Nucleated RBC 0.000 Nucleated RBC % (auto) 0.0 Anion Gap 14 Estim Creat Clear Calc 49.2 Estimated GFR 43 Random Glucose 105 Calcium 8.7 D Total Bilirubin 0.7 AST 19 ALT 7 Alkaline Phosphatase 87 Total Protein 6.5 Albumin 3.8 Imaging Radiologist's Impressions: Impressions Ankle X-Ray 08/09/22 13:28 IMPRESSION: 1. Laterally displaced Liang type B distal fibular fracture and minimally displaced posterior malleolar fracture. 2. Widening of the medial clear space consistent with deltoid ligament injury and suspected avulsion fracture fragment adjacent to the medial talus. Ankle X-Ray 08/09/22 15:40 IMPRESSION: Reduction of trimalleolar fracture with placement of cast. Assessment and Plan (1) Closed left trimalleolar fracture: Status: Acute (2) Uncontrolled hypertension: Status: Acute Plan This is a 72-year-old female with history of COPD, HFpEF, HTN who presents to the emergency department after a fall found to have left trimalleolar fracture status post reduction left trimalleolar fracture s/p reduction and splinting in ED -orthopedic consult - no plans for inpatient surgery -PT evaluation -pain control uncontrolled hypertension likely secondary to pain - continue home losartan, coreg, clonidine - adequate pain control - monitor blood pressure closely COPD no acute exacerbation continue home medications HLD continue statin HFpEF compensated continue home dose of lasix DT ppx - lovenox attending - dr. ati patient will likely require 2 midnight stay in the hospital for adequate pain control and blood pressure control Time Spent With Patient Time: Total time managing care of this patient today ____ minutes. Quality Stroke Does the patient have a stroke diagnosis?: No VTE Prior VTE?: No VTE Risk Level:: Medical - moderate - high VTE Device Contraindication: Treatment Not Indicated VTE Drug Contraindication: N/A - Med Ordered
--- NOTE | 2022-08-09 17:27 | PHA.MEDREC ---
med rec complete, no issues Pharmacy Consult ? Medication Reconciliation Pharmacy has completed the medication reconciliation.
[2022-08-09 18:01] LABS: COVID-19 Test Negative (Negative); IDNOW Serial# 16C4AD1C
--- NOTE | 2022-08-09 18:05 | PC.NURSE ---
ATTEMPTED CRUTCH TRAINING WITH PT - PT UNABLE TO USE CRUTCHES, CONTINUALLY ATTEMPTED TO PUT HER WEIGHT OF HER L FOOT ON THE FLOOR TO AMBULATE
[2022-08-09] MEDS: Acetaminophen 325 MG TABLET 650 MG PO (21:39)
[2022-08-09] MEDS: Enoxaparin Sodium 40 MG/0.4 ML SYRINGE SUBCUT (21:39)
[2022-08-09] MEDS: carvediloL 12.5 MG TABLET 37.5 MG PO (21:39)
[2022-08-09] MEDS: LORazepam 0.5 MG TABLET PO (21:40)
[2022-08-09] MEDS: cloNIDine HCL 0.2 MG TABLET PO (21:40)
[2022-08-09] MEDS: oxyCODONE HCl Immed Release 5 MG TABLET PO (21:40)
[2022-08-09] MEDS: 0.9 % Sodium Chloride Flush 3 ML SYRINGE IVFLUSH (21:41)
[2022-08-10] MEDS: Acetaminophen 325 MG TABLET 650 MG PO ×3 (03:35→16:10)
[2022-08-10] MEDS: oxyCODONE HCl Immed Release 5 MG TABLET PO ×4 (03:36→19:35)
[2022-08-10 04:00] VITALS: BP 110/59; PULSE 79; RESP 18; TEMP 36.4; O2SAT 98
[2022-08-10] MEDS: Omeprazole 20 MG CAPSULE.DR PO (05:28)
[2022-08-10 07:52] VITALS: BP 131/61; PULSE 64; RESP 16; TEMP 37.1; O2SAT 97
[2022-08-10] MEDS: diphenhydrAMINE HCL 25 MG CAPSULE PO (08:19)
[2022-08-10] MEDS: carvediloL 12.5 MG TABLET 37.5 MG PO ×2 (08:19→19:26)
[2022-08-10] MEDS: Atorvastatin Calcium 40 MG TABLET PO (08:19)
[2022-08-10] MEDS: Folic Acid 1 MG TABLET PO (08:19)
[2022-08-10] MEDS: Losartan Potassium 25 MG TABLET PO (08:19)
[2022-08-10] MEDS: Furosemide 40 MG TABLET PO (08:19)
[2022-08-10] MEDS: 0.9 % Sodium Chloride Flush 3 ML SYRINGE IVFLUSH ×3 (08:20→19:26)
--- NOTE | 2022-08-10 10:47 | PM.CNOR ---
History of Present Illness HPI Consult date: 08/10/22 Chief complaint: left ankle trimalleolar fracture Narrative: Ms. High is a 72-year-old female who was brought to the emergency department after sustaining a fall while grocery shopping. She was returning the grocery cart to the store entrance when she lost her balance in the snow and slush causing her to fall. The grocery cart fell on top of her and her left ankle got stuck underneath her. She had immediate onset of pain and was unable to bear weight on her left leg.? She was brought to the emergency department via EMS where imaging for left ankle revealed a left trimalleolar fracture/dislocation.? This was reduced in the emergency department and she was placed in a splint.? Patient's blood pressure in the emergency department was noted to be in the 200s therefor, she was admitted to the hospital for further management of left ankle pain, uncontrolled blood pressure. Orthopedics was consulted while the patient was in the emergency department. After reduction the plan was to trial ambulation and control pain. If unable to do so admit/rehab placement would be necessary. Review of Systems Review of Systems: Yes all other systems are reviewed and are negative [facility] Past Medical History Medical History (HFpEF) heart failure with preserved ejection fraction Acute CHF Arthritis Asthma Chronic kidney disease (CKD) stage G3a/A1, moderately decreased glomerular filtration rate (GFR) between 45-59 mL/min/1.73 square meter and albuminuria creatinine ratio less than 30 mg/g COPD (chronic obstructive pulmonary disease) Essential hypertension Gout Hepatic steatosis HTN (hypertension) Hypercholesteremia Inguinal hernia Other and unspecified hyperlipidemia Sliding hiatal hernia Functional capacity: uses cane/walker Family History Family History Father CHF (congestive heart failure) Mother CHF (congestive heart failure) Surgical History Surgical History History of total left knee replacement Social History Social History (Updated 08/09/22 @ 17:10 by CARROL Eller) Household Members: Family Household Members Other:: mom, 91 y.o. Housing: House Do you presently have visiting nurse or other home services: No Alcohol intake: current Alcohol intake frequency: a few times a week Alcohol type: wine Patient Tobacco Use Status: Former Tobacco user Second Hand Smoke Exposure: No Use of substances other than those prescribed or required for medical reasons: No Currently Displaying Signs/Symptoms of Drug Intoxication Withdrawal: No Have you been hit, kicked, punched, or otherwise hurt by someone within the past year? 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, 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 Meds Allergies Allergy/AdvReac Type Severity Reaction Status Date / Time shrimp Allergy Severe Anaphylaxis Verified 07/22/22 15:36 Penicillins Allergy Unknown UNKNOWN Verified 07/22/22 15:36 levofloxacin [From Levaquin] Allergy Unknown Verified 07/22/22 15:36 paroxetine [From Paxil] Allergy Unknown Verified 07/22/22 15:36 prochlorperazine Allergy Unknown Verified 07/22/22 15:36 [From Compazine] Active Medications: Current Medications Acetaminophen (Acetaminophen 325 Mg Tablet) 650 mg PO Q6H PRN PRN Reason: Pain, Mild (Pain Scale 1-3) Last Admin: 08/10/22 09:45 Dose: 650 mg Albuterol Sulfate (Albuterol Sulfate 90 Mcg 8 Gm Inhaler) 2 puff INHALE Q4H PRN PRN Reason: sob Atorvastatin Calcium (Atorvastatin Calcium 40 Mg Tablet) 40 mg PO DAILY [facility] Last Admin: 08/10/22 08:19 Dose: 40 mg Benzonatate (Benzonatate 100 Mg Capsule) 100 mg PO TID PRN PRN Reason: Cough Carvedilol (Carvedilol 12.5 Mg Tablet) 37.5 mg PO BID [facility]; Protocol Last Admin: 08/10/22 08:19 Dose: 37.5 mg Clonidine HCl (Clonidine Hcl 0.2 Mg Tablet) 0.2 mg PO BEDTIME [facility]; Protocol Last Admin: 08/09/22 21:40 Dose: 0.2 mg Diphenhydramine HCl (Diphenhydramine Hcl 25 Mg Capsule) 25 mg PO DAILY [facility] Last Admin: 08/10/22 08:19 Dose: 25 mg Enoxaparin Sodium (Enoxaparin Sodium 40 Mg/0.4 Ml Syringe) 40 mg SUBCUT Q24H [facility] Last Admin: 08/09/22 21:39 Dose: 40 mg Fluticasone/Vilanterol (Fluticasone/Vilanterol 100/25 Blst.W.Dev) 1 puff INHALE RDAILY [facility] Last Admin: 08/10/22 07:57 Dose: Not Given Folic Acid (Folic Acid 1 Mg Tablet) 1 mg PO DAILY [facility] Last Admin: 08/10/22 08:19 Dose: 1 mg Furosemide (Furosemide 40 Mg Tablet) 40 mg PO SUTUTHSA@0900 [facility]; Protocol Last Admin: 08/10/22 08:19 Dose: 40 mg Furosemide (Furosemide 20 Mg Tablet) 20 mg PO MOWEFR@0900 [facility]; Protocol Lorazepam (Lorazepam 0.5 Mg Tablet) 0.5 mg PO BEDTIME PRN PRN Reason: ANXIETY/SLEEP Last Admin: 08/09/22 21:40 Dose: 0.5 mg Losartan Potassium (Losartan Potassium 25 Mg Tablet) 25 mg PO DAILY [facility]; Protocol Last Admin: 08/10/22 08:19 Dose: 25 mg Melatonin (Melatonin 3 Mg Tablet) 3 mg PO BEDTIME PRN PRN Reason: Insomnia Morphine Sulfate (Morphine Sulfate 4 Mg/Ml Cartridge) 4 mg IVPUSH Q4H PRN; Protocol PRN Reason: Pain, Severe (Pain Scale 7-10) Omeprazole (Omeprazole 20 Mg Capsule.Dr) 20 mg PO DAILY@0630 [facility] Last Admin: 08/10/22 05:28 Dose: 20 mg Ondansetron HCl (Ondansetron Hcl 4 Mg/2 Ml Vial) 4 mg IVPUSH Q8H PRN PRN Reason: Nausea and Vomiting Oxycodone HCl (Oxycodone Hcl Immed Release 5 Mg Tablet) 5 mg PO Q6H PRN PRN Reason: Pain, Moderate (Pain Scale 4-6 Last Admin: 08/10/22 09:44 Dose: 5 mg Pharmacy Consult (Consult Rx Perform Med Rec) 1 each MISCELLANE ONCE PRN PRN Reason: Consult order Pharmacy Consult (Consult Rx Perform Med Rec) 1 each MISCELLANE ONCE PRN PRN Reason: Consult order Sodium Chloride (0.9 % Sodium Chloride Flush 3 Ml Syringe) 3 ml IVFLUSH QSHIFT [facility] Last Admin: 08/10/22 08:20 Dose: 3 ml Home Medications Medication Instructions Recorded Confirmed Last Taken Type pantoprazole 40 mg tablet,delayed 40 mg PO DAILY 11/17/20 08/09/22 08/09/22 History release atorvastatin 40 mg tablet 40 mg PO DAILY 03/12/21 08/09/22 08/09/22 History clonidine HCl 0.1 mg tablet 2 tab PO BEDTIME 05/08/22 08/09/22 08/08/22 History losartan 25 mg tablet 25 mg PO DAILY 07/12/22 08/09/22 08/09/22 History albuterol sulfate 90 mcg/actuation 2 puff inhalation Q6H PRN 08/09/22 08/09/22 Unknown History aerosol inhaler Respiratory Distress diphenhydramine HCl 25 mg capsule 25 mg PO DAILY 08/09/22 08/09/22 08/09/22 History (Benadryl) furosemide 20 mg tablet 20 mg PO MOWEFR@0900 08/09/22 08/09/22 08/09/22 History furosemide 40 mg tablet 40 mg PO SUTUTHSA@0900 08/09/22 08/09/22 Unknown History lorazepam 0.5 mg tablet (Ativan) 0.5 mg PO BEDTIME PRN ANXIETY/SLEEP 08/09/22 08/09/22 Unknown History Physical Exam Vital Signs: Vital Signs: Last Vital Signs Temp 98.7 F 08/10/22 07:52 Pulse 64 08/10/22 07:52 Resp 16 08/10/22 07:52 BP 131/61 08/10/22 07:52 Pulse Ox 97 08/10/22 07:52 O2 Del Method 08/10/22 07:52 Oxygen Flow Rate 0 08/09/22 15:19 BMI result Body Mass Index 37.5 Const: General: cooperative, healthy appearing and no acute distress Resp: Effort & Inspection: normal respiratory effort and able to speak in complete sentences Cardio: Rate: regular rate Peripheral pulses: Peripheral pulses 2+ throughout GI: Palpation (GI): Soft to palpation Skin: Lesions: no lesions Rashes: no rashes Extrem: Other: Left ankle splint is c/d/i. Able to move all digits. Sensation intact. Capillary refill is brisk. Results Labs Result Diagrams: 08/09/22 14:01 08/09/22 14:01 Labs: Abnormal lab results 08/09/22 08/09/22 Range/Units 14:01 14:01 RBC 3.07 L (4.20-5.50) X10*6/uL Hgb 10.5 L (12.0-16.0) g/dl Hct 31.5 L (37.0-47.0) % MCV 102.6 H (80.0-98.0) fL MCH 34.2 H (27.0-33.0) pg Lymph % (Auto) 17.5 L (20-40) % Lymph # (Auto) 0.9 L (1.2-4.9) X10*3/uL BUN 28 H (9-16) mg/dL H & H 08/09/22 Range/Units 14:01 Hgb 10.5 L (12.0-16.0) g/dl Hct 31.5 L (37.0-47.0) % All other labs normal. Assessment and Plan (1) Closed left trimalleolar fracture: Status: Acute Ms. High is a 72-year-old female who was brought to the emergency department after sustaining a fall while grocery shopping. She was returning the grocery cart to the store entrance when she lost her balance in the snow and slush causing her to fall. The grocery cart fell on top of her and her left ankle got stuck underneath her. She had immediate onset of pain and was unable to bear weight on her left leg.? She was brought to the emergency department via EMS where imaging for left ankle revealed a left trimalleolar fracture/dislocation.? This was reduced in the emergency department and she was placed in a splint.? Patient's blood pressure in the emergency department was noted to be in the 200s therefor, she was admitted to the hospital for further management of left ankle pain, uncontrolled blood pressure. Of note patient also reports a history of psoriasis with skin involvement of the left lower extremity. Orthopedics was consulted while the patient was in the emergency department. After reduction the plan was to trial ambulation and control pain. If unable to do so admit/rehab placement would be necessary. I spoke with this patient at bedside this morning. I educated the patient that with these types of injuries there tends to be a great deal of swelling. Therefor, we typically wait until swelling subsides to allow for a decrease in wound complications. Recommendation for strict elevation on three pillows to attempt to control swelling. Nursing communication order placed. Pain management as needed. P.T. to assist with ambulation trial. Plan for surgical intervention sometime next week depending on skin condition and edema. (2) Hx of reduction of closed fracture: Status: Acute Time Spent With Patient Time: Total time managing care of this patient today ____ minutes. Procedures Date of Service Date of Service: 08/10/22
[2022-08-10 11:00] VITALS: RESP 19
[2022-08-10] MEDS: Morphine Sulfate 4 MG/ML CARTRIDGE IVPUSH ×2 (11:00→15:07)
--- NOTE | 2022-08-10 12:24 | P.PNIM_ITS ---
Subjective Subjective Date of Service: 08/10/22 Interval History: seen and examined this morning Follow-up for left trimalleolar fracture Pain under adequate control. Blood pressure improved Review of Systems Review of Systems: Yes all other systems are reviewed and are negative Constitutional Constitutional: Denies chills and Denies fever(s) Cardiovascular Cardiovascular: Denies chest pain, Denies palpitations and Denies dyspnea Respiratory Respiratory: Denies cough and Denies dyspnea Gastrointestinal Gastrointestinal: Denies abdominal pain, Denies diarrhea, Denies nausea and Denies vomiting Endocrine Endocrine: Denies palpitations Physical Exam Vital Signs: Vital Signs: Last Vital Signs Temp 98.7 F 08/10/22 07:52 Pulse 64 08/10/22 07:52 Resp 19 08/10/22 11:00 BP 131/61 08/10/22 07:52 Pulse Ox 97 08/10/22 07:52 O2 Del Method 08/10/22 07:52 Oxygen Flow Rate 0 08/09/22 15:19 BMI result Body Mass Index 37.5 Const: General: cooperative, no acute distress, alert and awake Nutritional Appearance: overweight Orientation/consciousness: patient oriented x3 Resp: Effort & Inspection: normal respiratory effort and able to speak in complete sentences Cardio: Rate: regular rate GI: Inspection: No distended Palpation (GI): Soft to palpation Neuro: General: patient oriented x3 and CN's II-XI intact bilaterally Extrem: Other: left lower extremity in splint from foot to knee; good cap refill, toes warm Objective Data Active Medications Acetaminophen (Acetaminophen 325 Mg Tablet) 650 mg PO Q6H PRN PRN Reason: Pain, Mild (Pain Scale 1-3) Last Admin: 08/10/22 09:45 Dose: 650 mg Documented By: ABHIJEET Albuterol Sulfate (Albuterol Sulfate 90 Mcg 8 Gm Inhaler) 2 puff INHALE Q4H PRN PRN Reason: sob Atorvastatin Calcium (Atorvastatin Calcium 40 Mg Tablet) 40 mg PO DAILY [facility] Last Admin: 08/10/22 08:19 Dose: 40 mg Documented By: ABHIJEET Benzonatate (Benzonatate 100 Mg Capsule) 100 mg PO TID PRN PRN Reason: Cough Carvedilol (Carvedilol 12.5 Mg Tablet) 37.5 mg PO BID [facility]; Protocol Last Admin: 08/10/22 08:19 Dose: 37.5 mg Documented By: ABHIJEET Clonidine HCl (Clonidine Hcl 0.2 Mg Tablet) 0.2 mg PO BEDTIME [facility]; Protocol Last Admin: 08/09/22 21:40 Dose: 0.2 mg Documented By: AUNG Comments: bp 155/70 H 80 Diphenhydramine HCl (Diphenhydramine Hcl 25 Mg Capsule) 25 mg PO DAILY [facility] Last Admin: 08/10/22 08:19 Dose: 25 mg Documented By: ROSIEMA Enoxaparin Sodium (Enoxaparin Sodium 40 Mg/0.4 Ml Syringe) 40 mg SUBCUT Q24H [facility] Last Admin: 08/09/22 21:39 Dose: 40 mg Documented By: AUNG Fluticasone/Vilanterol (Fluticasone/Vilanterol 100/25 Blst.W.Dev) 1 puff INHALE RDAILY [facility] Last Admin: 08/10/22 07:57 Dose: Not Given Documented By: TAYLER Non-Admin Reason: Med Not Available Folic Acid (Folic Acid 1 Mg Tablet) 1 mg PO DAILY [facility] Last Admin: 08/10/22 08:19 Dose: 1 mg Documented By: COTEMA Furosemide (Furosemide 40 Mg Tablet) 40 mg PO SUTUTHSA@0900 [facility]; Protocol Last Admin: 08/10/22 08:19 Dose: 40 mg Documented By: COTEMA Furosemide (Furosemide 20 Mg Tablet) 20 mg PO MOWEFR@0900 [facility]; Protocol Lorazepam (Lorazepam 0.5 Mg Tablet) 0.5 mg PO BEDTIME PRN PRN Reason: ANXIETY/SLEEP Last Admin: 08/09/22 21:40 Dose: 0.5 mg Documented By: AUNG Losartan Potassium (Losartan Potassium 25 Mg Tablet) 25 mg PO DAILY [facility]; Protocol Last Admin: 08/10/22 08:19 Dose: 25 mg Documented By: ROSIEMA Melatonin (Melatonin 3 Mg Tablet) 3 mg PO BEDTIME PRN PRN Reason: Insomnia Morphine Sulfate (Morphine Sulfate 4 Mg/Ml Cartridge) 4 mg IVPUSH Q4H PRN; Protocol PRN Reason: Pain, Severe (Pain Scale 7-10) Last Admin: 08/10/22 11:00 Dose: 4 mg Documented By: COTEMA Omeprazole (Omeprazole 20 Mg Capsule.Dr) 20 mg PO DAILY@0630 [facility] Last Admin: 08/10/22 05:28 Dose: 20 mg Documented By: AUNG Ondansetron HCl (Ondansetron Hcl 4 Mg/2 Ml Vial) 4 mg IVPUSH Q8H PRN PRN Reason: Nausea and Vomiting Oxycodone HCl (Oxycodone Hcl Immed Release 5 Mg Tablet) 5 mg PO Q4H PRN PRN Reason: Pain, Moderate (Pain Scale 4-6 Pharmacy Consult (Consult Rx Perform Med Rec) 1 each MISCELLANE ONCE PRN PRN Reason: Consult order Pharmacy Consult (Consult Rx Perform Med Rec) 1 each MISCELLANE ONCE PRN PRN Reason: Consult order Sodium Chloride (0.9 % Sodium Chloride Flush 3 Ml Syringe) 3 ml IVFLUSH QSHIFT [facility] Last Admin: 08/10/22 08:20 Dose: 3 ml Documented By: COTEMA Labs CBC & Chem 7: 08/09/22 14:01 08/09/22 14:01 Labs: Laboratory Results - last 24 hr 08/09/22 08/09/22 08/09/22 14:01 14:01 17:21 MCV 102.6 H MCH 34.2 H MCHC 33.3 RDW 13.1 Plt Count 270 MPV 9.5 Immature Gran % (Auto) 0.4 Neut % (Auto) 71.1 Lymph % (Auto) 17.5 L [place] % (Auto) 8.5 Eos % (Auto) 1.9 Baso % (Auto) 0.6 Lymph # (Auto) 0.9 L [place] # (Auto) 0.5 Eos # (Auto) 0.1 Baso # (Auto) 0.0 Abs Immat Gran (auto) 0.02 Absolute Neuts (auto) 3.8 Absolute Nucleated RBC 0.000 Nucleated RBC % (auto) 0.0 Anion Gap 14 Estim Creat Clear Calc 49.2 Estimated GFR 43 Random Glucose 105 Calcium 8.7 D Total Bilirubin 0.7 AST 19 ALT 7 Alkaline Phosphatase 87 Total Protein 6.5 Albumin 3.8 COVID-19 ([facility]) Negative COVID-19 Clin Com See Note Assessment and Plan (1) Closed left trimalleolar fracture: Status: Acute Plan This is a 72-year-old female with history of COPD, HFpEF, HTN who presents to the emergency department after a fall found to have left trimalleolar fracture status post reduction left trimalleolar fracture s/p reduction and splinting in ED seen by ortho, no plan for surgery over the weekend. need to decrease swelling. likely plan for outpatient surgery next week seen by PT - rec STR pain control uncontrolled hypertension likely secondary to pain. BP has improved continue home losartan, coreg, clonidine COPD no acute exacerbation continue inhalers HLD continue statin HFpEF compensated continue home dose of lasix DT ppx - lovenox attending - dr. tai requires ongoing inpatient hospitalization for pain control, safe disposition Time Spent With Patient Time: Total time managing care of this patient today ____ minutes. Quality Stroke Does the patient have a stroke diagnosis?: No VTE Prior VTE?: No VTE Risk Level:: Medical - moderate - high VTE Device Contraindication: Treatment Not Indicated VTE Drug Contraindication: N/A - Med Ordered
--- NOTE | 2022-08-10 13:30 | MHC.CM.PN ---
PATIENT LIVES WITH AND PROVIDES CARE FOR HER MOTHER. SHE STATES THAT HER SISTER CAN STAY WITH THE MOTHER IF SHE DC TO REHAB. PATIENT ASKS FOR A REFERRAL TO [facility], NOW PLACED. FACILITY IS REVIEWING. PATIENT AWARE THAT FACILITY MAY NOT BE ABLE TO OFFER OVER WEEKEND SECONDARY TO INSURANCE PLAN BUT THAT CM WILL UPDATE. CM FOLLOWING
[2022-08-10 15:07] VITALS: RESP 18
[2022-08-10 15:20] VITALS: BP 118/55; PULSE 68; RESP 18; TEMP 37.5; O2SAT 93
[2022-08-10] MEDS: Enoxaparin Sodium 40 MG/0.4 ML SYRINGE SUBCUT (18:01)
[2022-08-10 19:03] VITALS: BP 134/63; PULSE 76; RESP 18; TEMP 36.9; O2SAT 96
[2022-08-10] MEDS: cloNIDine HCL 0.2 MG TABLET PO (19:25)
[2022-08-10] MEDS: LORazepam 0.5 MG TABLET PO (19:26)
[2022-08-11] MEDS: Morphine Sulfate 4 MG/ML CARTRIDGE IVPUSH ×3 (00:44→23:31)
[2022-08-11 04:00] VITALS: BP 132/64; PULSE 69; RESP 18; TEMP 36.3; O2SAT 96
[2022-08-11] MEDS: Omeprazole 20 MG CAPSULE.DR PO (05:54)
[2022-08-11 07:16] VITALS: BP 134/64; PULSE 72; RESP 16; TEMP 36.9; O2SAT 96
[2022-08-11] MEDS: Folic Acid 1 MG TABLET PO (07:38)
[2022-08-11] MEDS: Atorvastatin Calcium 40 MG TABLET PO (07:38)
[2022-08-11] MEDS: carvediloL 12.5 MG TABLET 37.5 MG PO ×2 (07:38→21:54)
[2022-08-11] MEDS: oxyCODONE HCl Immed Release 5 MG TABLET PO ×2 (07:38→21:55)
[2022-08-11] MEDS: Acetaminophen 325 MG TABLET 650 MG PO (07:38)
[2022-08-11] MEDS: Losartan Potassium 25 MG TABLET PO (07:38)
[2022-08-11] MEDS: diphenhydrAMINE HCL 25 MG CAPSULE PO (07:38)
[2022-08-11] MEDS: 0.9 % Sodium Chloride Flush 3 ML SYRINGE IVFLUSH ×2 (07:39→21:59)
--- NOTE | 2022-08-11 07:41 | P.PNIM_ITS ---
Subjective Subjective Date of Service: 08/11/22 Interval History: seen and examined this morning Follow-up for left trimalleolar fracture Pain under adequate control. Review of Systems goog pain control no sob, no chest pain Physical Exam Vital Signs: Vital Signs: Last Vital Signs Temp 98.4 F 08/11/22 07:16 Pulse 72 08/11/22 07:16 Resp 16 08/11/22 07:16 BP 134/64 08/11/22 07:16 Pulse Ox 96 08/11/22 07:16 O2 Del Method 08/11/22 07:16 Oxygen Flow Rate 0 08/09/22 15:19 BMI result Body Mass Index 37.5 Const: Other: General: AO X 3, no acute distress Resp: CTA bilateral CVS: S1,S2,RRR GI: +BS, NT, no distention Skin: No rash Neuro: motor grossly intact Psych: appropriate affect Left ankle splint in place Objective Data Active Medications Acetaminophen (Acetaminophen 325 Mg Tablet) 650 mg PO Q6H PRN PRN Reason: Pain, Mild (Pain Scale 1-3) Last Admin: 08/11/22 07:38 Dose: 650 mg Documented By: ABHIJEET Albuterol Sulfate (Albuterol Sulfate 90 Mcg 8 Gm Inhaler) 2 puff INHALE Q4H PRN PRN Reason: sob Atorvastatin Calcium (Atorvastatin Calcium 40 Mg Tablet) 40 mg PO DAILY [facility] Last Admin: 08/11/22 07:38 Dose: 40 mg Documented By: ABHIJEET Benzonatate (Benzonatate 100 Mg Capsule) 100 mg PO TID PRN PRN Reason: Cough Carvedilol (Carvedilol 12.5 Mg Tablet) 37.5 mg PO BID [facility]; Protocol Last Admin: 08/11/22 07:38 Dose: 37.5 mg Documented By: ABHIJEET Clonidine HCl (Clonidine Hcl 0.2 Mg Tablet) 0.2 mg PO BEDTIME [facility]; Protocol Last Admin: 08/10/22 19:25 Dose: 0.2 mg Documented By: AUNG Comments: bp 134/63 h 79 Diphenhydramine HCl (Diphenhydramine Hcl 25 Mg Capsule) 25 mg PO DAILY [facility] Last Admin: 08/11/22 07:38 Dose: 25 mg Documented By: ABHIJEET Enoxaparin Sodium (Enoxaparin Sodium 40 Mg/0.4 Ml Syringe) 40 mg SUBCUT Q24H [facility] Last Admin: 08/10/22 18:01 Dose: 40 mg Documented By: ROSIEMA Fluticasone/Vilanterol (Fluticasone/Vilanterol 100/25 Blst.W.Dev) 1 puff INHALE RDAILY [facility] Last Admin: 08/10/22 07:57 Dose: Not Given Documented By: TAYLER Non-Admin Reason: Med Not Available Folic Acid (Folic Acid 1 Mg Tablet) 1 mg PO DAILY [facility] Last Admin: 08/11/22 07:38 Dose: 1 mg Documented By: ROSIEMA Furosemide (Furosemide 40 Mg Tablet) 40 mg PO SUTUTHSA@0900 [facility]; Protocol Last Admin: 08/10/22 08:19 Dose: 40 mg Documented By: ROSIEMA Furosemide (Furosemide 20 Mg Tablet) 20 mg PO MOWEFR@0900 [facility]; Protocol Lorazepam (Lorazepam 0.5 Mg Tablet) 0.5 mg PO BEDTIME PRN PRN Reason: ANXIETY/SLEEP Last Admin: 08/10/22 19:26 Dose: 0.5 mg Documented By: AUNG Losartan Potassium (Losartan Potassium 25 Mg Tablet) 25 mg PO DAILY [facility]; Protocol Last Admin: 08/11/22 07:38 Dose: 25 mg Documented By: ABHIJEET Melatonin (Melatonin 3 Mg Tablet) 3 mg PO BEDTIME PRN PRN Reason: Insomnia Morphine Sulfate (Morphine Sulfate 4 Mg/Ml Cartridge) 4 mg IVPUSH Q4H PRN; Protocol PRN Reason: Pain, Severe (Pain Scale 7-10) Last Admin: 08/11/22 00:44 Dose: 4 mg Documented By: AUNG Omeprazole (Omeprazole 20 Mg Capsule.) 20 mg PO DAILY@0630 [facility] Last Admin: 08/11/22 05:54 Dose: 20 mg Documented By: AUNG Ondansetron HCl (Ondansetron Hcl 4 Mg/2 Ml Vial) 4 mg IVPUSH Q8H PRN PRN Reason: Nausea and Vomiting Oxycodone HCl (Oxycodone Hcl Immed Release 5 Mg Tablet) 5 mg PO Q4H PRN PRN Reason: Pain, Moderate (Pain Scale 4-6 Last Admin: 08/11/22 07:38 Dose: 5 mg Documented By: ABHIJEET Pharmacy Consult (Consult Rx Perform Med Rec) 1 each MISCELLANE ONCE PRN PRN Reason: Consult order Pharmacy Consult (Consult Rx Perform Med Rec) 1 each MISCELLANE ONCE PRN PRN Reason: Consult order Sodium Chloride (0.9 % Sodium Chloride Flush 3 Ml Syringe) 3 ml IVFLUSH QSHIFT [facility] Last Admin: 08/11/22 07:39 Dose: 3 ml Documented By: ABHIJEET Labs CBC & Chem 7: 08/09/22 14:01 08/09/22 14:01 Assessment and Plan (1) Closed left trimalleolar fracture: Status: Acute Plan 72-year-old female with history of COPD, HFpEF, HTN who presents to the emergency department after a fall found to have left trimalleolar fracture status post reduction left trimalleolar fracture s/p reduction and splinting in ED -orthopedic consult - no plans for inpatient surgery -PT evaluation -pain control hypertension now controlled likely secondary to pain - continue home losartan, coreg, clonidine - adequate pain control - monitor blood pressure closely COPD no acute exacerbation continue home medications HLD continue statin HFpEF compensated continue home dose of lasix DT ppx - lovenox Inpatient need for rehab placement Time Spent With Patient Time: Total time managing care of this patient today ____ minutes. Quality Stroke Does the patient have a stroke diagnosis?: No VTE Prior VTE?: No VTE Risk Level:: Medical - moderate - high VTE Device Contraindication: Treatment Not Indicated VTE Drug Contraindication: N/A - Med Ordered
[2022-08-11] MEDS: Furosemide 40 MG TABLET PO (07:48)
[2022-08-11] MEDS: Fluticasone/Vilanterol 100/25 BLST.W.DEV 1 PUFF INHALE (07:53)
[2022-08-11 07:54] VITALS: RESP 18; O2SAT 95
--- NOTE | 2022-08-11 11:00 | PM.PNORT ---
Subjective Subjective Date of Service: 08/11/22 Interval history: Patient seen this morning resting comfrtably in bed. No overnight events. Pain is well managed. Splint is comfortable. No additional compaints. Physical Exam Vital Signs: Vital Signs: Last Vital Signs Temp 99.0 F 08/11/22 15:31 Pulse 71 08/11/22 15:31 Resp 18 08/11/22 15:31 BP 145/64 H 08/11/22 15:31 Pulse Ox 95 08/11/22 15:31 O2 Del Method 08/11/22 15:31 Oxygen Flow Rate 0 08/09/22 15:19 BMI result Body Mass Index 37.5 Const: General: cooperative, healthy appearing and no acute distress Resp: Effort & Inspection: normal respiratory effort and able to speak in complete sentences Cardio: Rate: regular rate Peripheral pulses: Peripheral pulses 2+ throughout GI: Palpation (GI): Soft to palpation Skin: Lesions: no lesions Rashes: no rashes Extrem: Other: Left ankle splint is c/d/i. Able to move all digits. Sensation intact. Capillary refill is brisk. Procedures Date of Service Date of Service: 08/11/22 Progress Note: A&P Assessment and plan (1) Closed left trimalleolar fracture: Status: Acute Plan - Strict elevation 3 pillows above heart level - Keep splint c/d/i - NWB - Pain management - Plan for surgical intervention this week Time Spent With Patient Time: Total time managing care of this patient today ____ minutes. Quality Stroke Does the patient have a stroke diagnosis?: No VTE Prior VTE?: No VTE Risk Level:: Medical - moderate - high VTE Device Contraindication: Treatment Not Indicated VTE Drug Contraindication: N/A - Med Ordered
[2022-08-11 12:17] VITALS: RESP 18
[2022-08-11 15:31] VITALS: BP 145/64; PULSE 71; RESP 18; TEMP 37.2; O2SAT 95
[2022-08-11] MEDS: Enoxaparin Sodium 40 MG/0.4 ML SYRINGE SUBCUT (18:24)
[2022-08-11 19:56] VITALS: BP 139/68; PULSE 77; RESP 18; TEMP 37.4; O2SAT 97
[2022-08-11] MEDS: LORazepam 0.5 MG TABLET PO (21:54)
[2022-08-11] MEDS: cloNIDine HCL 0.2 MG TABLET PO (21:54)
[2022-08-12 04:00] VITALS: BP 151/70; PULSE 67; RESP 16; TEMP 36.2; O2SAT 96
[2022-08-12] MEDS: Omeprazole 20 MG CAPSULE.DR PO (05:47)
[2022-08-12 07:52] VITALS: BP 166/79; PULSE 66; RESP 16; TEMP 36.2; O2SAT 96
--- NOTE | 2022-08-12 07:58 | PM.PNORT ---
Subjective Subjective Date of Service: 08/12/22 Interval history: Patient seen this morning resting comfrtably in bed. No overnight events. Pain is well managed. Splint is a little tight. No additional complaints. Physical Exam Vital Signs: Vital Signs: Last Vital Signs Temp 97.2 F 08/12/22 07:52 Pulse 66 08/12/22 07:52 Resp 16 08/12/22 07:52 BP 166/79 H 08/12/22 07:52 Pulse Ox 96 08/12/22 07:52 O2 Del Method 08/12/22 07:52 Oxygen Flow Rate 0 08/09/22 15:19 BMI result Body Mass Index 37.5 Const: General: cooperative, healthy appearing and no acute distress Resp: Effort & Inspection: normal respiratory effort and able to speak in complete sentences Cardio: Rate: regular rate Peripheral pulses: Peripheral pulses 2+ throughout GI: Palpation (GI): Soft to palpation Skin: Lesions: no lesions Rashes: no rashes Extrem: Other: Left ankle splint is c/d/i. Able to move all digits. Sensation intact. Capillary refill is brisk. Skin is intact. Mild edema. No abrasions or open areas. Procedures Date of Service Date of Service: 08/12/22 Progress Note: A&P Assessment and plan (1) Closed left trimalleolar fracture: Status: Acute (2) Hx of reduction of closed fracture: Status: Acute (3) Occult fracture: Status: Acute Plan - Strict elevation 3 pillows above heart level - Keep splint c/d/i - NWB - Pain management - Plan for surgical intervention tomorrow - NPO after midnight Time Spent With Patient Time: Total time managing care of this patient today ____ minutes. Quality Stroke Does the patient have a stroke diagnosis?: No VTE Prior VTE?: No VTE Risk Level:: Medical - moderate - high VTE Device Contraindication: Treatment Not Indicated VTE Drug Contraindication: N/A - Med Ordered
[2022-08-12] MEDS: Fluticasone/Vilanterol 100/25 BLST.W.DEV 1 PUFF INHALE (08:04)
[2022-08-12 08:05] VITALS: PULSE 84; RESP 18; O2SAT 98
--- NOTE | 2022-08-12 08:05 | PM.DS ---
DS: Providers Provider Date of Service: 08/12/22 Date of admission: 08/09/22 16:59 Primary care physician: Ana Lilia Espinoza NP Consults: 08/09/22 17:06 Consult to Orthopedics Routine Consulting Provider: Chino Trimble Reason for consultation: left trimalleolar fx Has provider been notified: No DS: Diagnosis Discharge Diagnosis (1) Closed left trimalleolar fracture: Status: Acute (2) Hx of reduction of closed fracture: Status: Acute (3) Occult fracture: Status: Acute DS: Summary Hospital Course Hospital Course: Admission HPI: Chief Complaint: Left foot pain ?this is a 72-year-old female who was brought to the emergency department after sustaining a fall.? She had finished grocery shopping and was returning the grocery cart to the store entrance when she lost her balance and fell, The grocery cart fell on top of her and her left ankle got stuck underneath her. She had immediate onset of pain and was unable to bear weight on her left leg.? she was brought to the emergency department for evaluation where imaging for left ankle revealed a left trimalleolar fracture.? This was reduced in the emergency department and she was placed in a temporary cast.? The orthopedic team was consulted and do not plan for inpatient surgical intervention.? Patient's blood pressure in the emergency department was noted to be in the 200s.? She denies any chest pain, headache, vision changes. ? The decision was made to admit her to the hospital for further management of left ankle pain, uncontrolled blood pressure. Hospital course: Time Spent with Patient Time attestation: Total time managing care of this patient today ____ minutes. Discharge coordination time: Greater than 30 minutes Quality: Safe Use of Opioids Does Pt have an Active Cancer Diagnosis on the Problem List?: No Quality: Stroke Does the patient have a stroke diagnosis?: No Physical Exam Vital Signs: Vital Signs: Last Vital Signs Temp 97.2 F 08/12/22 07:52 Pulse 66 08/12/22 07:52 Resp 16 08/12/22 07:52 BP 166/79 H 08/12/22 07:52 Pulse Ox 96 08/12/22 07:52 O2 Del Method 08/12/22 07:52 Oxygen Flow Rate 0 08/09/22 15:19 BMI result Body Mass Index 37.5 Discharge Plan Discharge Referrals: Chino Trimble MD [Physician] - (Please call to follow up for your ankle) Ana Lilia Espinoza NP [Primary Care Provider] - 1 Week Discharge Medications: New oxycodone 5 mg tablet 5 mg PO Q6H PRN (Reason: pain (scale score 7-10)) Qty: 10 0RF Rx Instructions: Partial Fill upon patient request. Continued carvedilol 25 mg tablet 37.5 mg PO BID Qty: 90 5RF folic acid 1 mg tablet 1 mg PO DAILY Qty: 30 0RF ferrous sulfate 325 mg (65 mg iron) tablet 325 mg PO DAILY Qty: 30 0RF clonidine HCl 0.1 mg tablet 2 tab PO BEDTIME acetaminophen 500 mg tablet 1,000 mg PO QID PRN (Reason: pain) Qty: 30 0RF lorazepam [Ativan] 0.5 mg tablet 0.5 mg PO BEDTIME PRN (Reason: ANXIETY/SLEEP) furosemide 20 mg Tablet 20 mg PO MOWEFR@0900 furosemide 40 mg Tablet 40 mg PO SUTUTHSA@0900 diphenhydramine HCl [Benadryl] 25 mg Capsule 25 mg PO DAILY albuterol sulfate 90 mcg/actuation Hfa Aerosol Inhaler 2 puff INHALATION Q6H PRN (Reason: Respiratory Distress) fluticasone propion-salmeterol [Wixela Inhub] 250-50 mcg/dose blister with device 1 inh inhalation BID Qty: 60 1RF epinephrine 0.3 mg/0.3 mL auto-injector 0.3 mg IM Q20M PRN (Reason: anaphylaxis) Qty: 2 0RF Rx Instructions: for 2 doses pantoprazole 40 mg tablet,delayed release (DR/EC) 40 mg PO DAILY atorvastatin 40 mg tablet 40 mg PO DAILY losartan 25 mg tablet 25 mg PO DAILY Activity Restrictions/Additional Instructions: Please call to follow up for your ankle Patient Instructions: Ankle Fracture (ED)
--- NOTE | 2022-08-12 08:10 | P.PNIM_ITS ---
Subjective Subjective Date of Service: 08/12/22 Interval History: seen and examined this morning Follow-up for left trimalleolar fracture Pain under adequate control. Review of Systems goog pain control no sob, no chest pain Physical Exam Vital Signs: Vital Signs: Last Vital Signs Temp 97.2 F 08/12/22 07:52 Pulse 84 08/12/22 08:05 Resp 18 08/12/22 08:05 BP 166/79 H 08/12/22 07:52 Pulse Ox 96 08/12/22 07:52 O2 Del Method 08/12/22 07:52 Oxygen Flow Rate 0 08/09/22 15:19 BMI result Body Mass Index 37.5 Objective Data Active Medications Acetaminophen (Acetaminophen 325 Mg Tablet) 650 mg PO Q6H PRN PRN Reason: Pain, Mild (Pain Scale 1-3) Last Admin: 08/11/22 07:38 Dose: 650 mg Documented By: ROSIEMA Albuterol Sulfate (Albuterol Sulfate 90 Mcg 8 Gm Inhaler) 2 puff INHALE Q4H PRN PRN Reason: sob Atorvastatin Calcium (Atorvastatin Calcium 40 Mg Tablet) 40 mg PO DAILY [facility] Last Admin: 08/11/22 07:38 Dose: 40 mg Documented By: ROSIEMA Benzonatate (Benzonatate 100 Mg Capsule) 100 mg PO TID PRN PRN Reason: Cough Carvedilol (Carvedilol 12.5 Mg Tablet) 37.5 mg PO BID [facility]; Protocol Last Admin: 08/11/22 21:54 Dose: 37.5 mg Documented By: RODNEY Clonidine HCl (Clonidine Hcl 0.2 Mg Tablet) 0.2 mg PO BEDTIME [facility]; Protocol Last Admin: 08/11/22 21:54 Dose: 0.2 mg Documented By: ODRISM Diphenhydramine HCl (Diphenhydramine Hcl 25 Mg Capsule) 25 mg PO DAILY [facility] Last Admin: 08/11/22 07:38 Dose: 25 mg Documented By: ROSIEMA Enoxaparin Sodium (Enoxaparin Sodium 40 Mg/0.4 Ml Syringe) 40 mg SUBCUT Q24H [facility] Last Admin: 08/11/22 18:24 Dose: 40 mg Documented By: COTEMA Fluticasone/Vilanterol (Fluticasone/Vilanterol 100/25 Blst.W.Dev) 1 puff INHALE RDAILY [facility] Last Admin: 08/12/22 08:04 Dose: 1 puff Documented By: ASHER Folic Acid (Folic Acid 1 Mg Tablet) 1 mg PO DAILY [facility] Last Admin: 08/11/22 07:38 Dose: 1 mg Documented By: COTEMA Furosemide (Furosemide 40 Mg Tablet) 40 mg PO SUTUTHSA@0900 [facility]; Protocol Last Admin: 08/11/22 07:48 Dose: 40 mg Documented By: COTEMA Furosemide (Furosemide 20 Mg Tablet) 20 mg PO MOWEFR@0900 [facility]; Protocol Lorazepam (Lorazepam 0.5 Mg Tablet) 0.5 mg PO BEDTIME PRN PRN Reason: ANXIETY/SLEEP Last Admin: 08/11/22 21:54 Dose: 0.5 mg Documented By: RODNEY Losartan Potassium (Losartan Potassium 25 Mg Tablet) 25 mg PO DAILY [facility]; Protocol Last Admin: 08/11/22 07:38 Dose: 25 mg Documented By: ABHIJEET Melatonin (Melatonin 3 Mg Tablet) 3 mg PO BEDTIME PRN PRN Reason: Insomnia Morphine Sulfate (Morphine Sulfate 4 Mg/Ml Cartridge) 4 mg IVPUSH Q4H PRN; Protocol PRN Reason: Pain, Severe (Pain Scale 7-10) Last Admin: 08/11/22 23:31 Dose: 4 mg Documented By: RODNEY Omeprazole (Omeprazole 20 Mg Capsule.Dr) 20 mg PO DAILY@0630 [facility] Last Admin: 08/12/22 05:47 Dose: 20 mg Documented By: RODNEY Ondansetron HCl (Ondansetron Hcl 4 Mg/2 Ml Vial) 4 mg IVPUSH Q8H PRN PRN Reason: Nausea and Vomiting Oxycodone HCl (Oxycodone Hcl Immed Release 5 Mg Tablet) 5 mg PO Q4H PRN PRN Reason: Pain, Moderate (Pain Scale 4-6 Last Admin: 08/11/22 21:55 Dose: 5 mg Documented By: RODNEY Pharmacy Consult (Consult Rx Perform Med Rec) 1 each MISCELLANE ONCE PRN PRN Reason: Consult order Pharmacy Consult (Consult Rx Perform Med Rec) 1 each MISCELLANE ONCE PRN PRN Reason: Consult order Sodium Chloride (0.9 % Sodium Chloride Flush 3 Ml Syringe) 3 ml IVFLUSH QSHIFT [facility] Last Admin: 08/11/22 21:59 Dose: 3 ml Documented By: RODNEY Labs CBC & Chem 7: 08/09/22 14:01 08/09/22 14:01 Assessment and Plan (1) Closed left trimalleolar fracture: Status: Acute Plan 72-year-old female with history of COPD, HFpEF, HTN who presents to the emerg ency department after a fall found to have left trimalleolar fracture status post reduction left trimalleolar fracture s/p reduction and splinting in ED -Plan for ORIF of ankle tomorrow -PT evaluation post op -pain control -elevate foot, NWB -morphine for pain hypertension intermittent highs likley from pain - continue home losartan, coreg, clonidine - adequate pain control - monitor blood pressure closely COPD no acute exacerbation continue home medications HLD continue statin HFpEF compensated continue home lasix DT ppx - lovenox Need for inpatient: awaiting surgery (ORIF) Time Spent With Patient Time: Total time managing care of this patient today ____ minutes. Quality Stroke Does the patient have a stroke diagnosis?: No VTE Prior VTE?: No VTE Risk Level:: Medical - moderate - high VTE Device Contraindication: Treatment Not Indicated VTE Drug Contraindication: N/A - Med Ordered
[2022-08-12] MEDS: diphenhydrAMINE HCL 25 MG CAPSULE PO (08:11)
[2022-08-12] MEDS: 0.9 % Sodium Chloride Flush 3 ML SYRINGE IVFLUSH ×3 (08:11→23:28)
[2022-08-12] MEDS: Folic Acid 1 MG TABLET PO (08:13)
[2022-08-12] MEDS: Furosemide 20 MG TABLET PO (08:13)
[2022-08-12] MEDS: Losartan Potassium 25 MG TABLET PO (08:13)
[2022-08-12] MEDS: carvediloL 12.5 MG TABLET 37.5 MG PO ×2 (08:13→21:45)
[2022-08-12] MEDS: Atorvastatin Calcium 40 MG TABLET PO (08:13)
[2022-08-12] MEDS: Morphine Sulfate 4 MG/ML CARTRIDGE IVPUSH ×2 (10:14→14:15)
--- NOTE | 2022-08-12 13:12 | MHC.CM.PN ---
EMR REVIEWED PER MD ROUNDS, PT NOT MEDICALLY CLEARED FOR DC TODAY, WILL BE HAVING A SURGICAL INTERVENTION FOR LEFT ANKLE FX. CM WILL CONTINUE TO FOLLOW. [facility] UPDATED AND FOLLOWING.
[2022-08-12 15:18] VITALS: BP 139/67; PULSE 67; RESP 17; TEMP 36.5; O2SAT 98
[2022-08-12] MEDS: oxyCODONE HCl Immed Release 5 MG TABLET PO ×2 (16:39→21:46)
[2022-08-12 19:22] VITALS: BP 158/74; PULSE 70; RESP 17; TEMP 36.1; O2SAT 98
[2022-08-12] MEDS: Enoxaparin Sodium 40 MG/0.4 ML SYRINGE SUBCUT (20:17)
[2022-08-12] MEDS: cloNIDine HCL 0.2 MG TABLET PO (21:45)
[2022-08-12] MEDS: LORazepam 0.5 MG TABLET PO (21:47)
[2022-08-13] VITALS (12 sets, daily range): BP systolic 113–169; BP diastolic 56–89; PULSE 64–82; RESP 7–20; TEMP 36.2–36.9; O2SAT 96–99
[2022-08-13] MEDS: Morphine Sulfate 4 MG/ML CARTRIDGE IVPUSH ×5 (00:09→21:06)
[2022-08-13] MEDS: Furosemide 40 MG TABLET PO (07:37)
[2022-08-13] MEDS: diphenhydrAMINE HCL 25 MG CAPSULE PO (07:37)
[2022-08-13] MEDS: Atorvastatin Calcium 40 MG TABLET PO (07:37)
[2022-08-13] MEDS: Folic Acid 1 MG TABLET PO (07:37)
[2022-08-13] MEDS: Omeprazole 20 MG CAPSULE.DR PO (07:37)
[2022-08-13] MEDS: Losartan Potassium 25 MG TABLET PO (07:37)
[2022-08-13] MEDS: carvediloL 12.5 MG TABLET 37.5 MG PO ×2 (07:38→20:58)
[2022-08-13] MEDS: 0.9 % Sodium Chloride Flush 3 ML SYRINGE IVFLUSH ×2 (07:38→17:01)
--- NOTE | 2022-08-13 08:42 | P.CONAN_ITS ---
HPI - Anesthesia Eval Consult details Narrative: 72 F for left Ankle ORIF PMFSH Active Problems Active Problems: All Active Problems (Updated 08/09/22 @ 15:49 by Daniel Goncalves DO) Closed left trimalleolar fracture (Acute) Hx of reduction of closed fracture (Acute) Occult fracture (Acute) Gout of left foot (Acute) Labile blood pressure (Acute) Hepatic steatosis (Acute) COPD (chronic obstructive pulmonary disease) (Acute) CHF (congestive heart failure) (Acute) Headache (Acute) Head injury (Acute) External hordeolum (Acute) Allergic rhinitis (Acute) Lower thoracic back pain (Acute) Uncontrolled hypertension (Acute) Postnasal drip (Acute) Sinusitis (Acute) Dental infection (Acute) Chest pain (Acute) HTN (hypertension) (Acute) (HFpEF) heart failure with preserved ejection fraction (Acute) Hypokalemia (Acute) Wound cellulitis (Acute) Black eye of right side (Acute) Acute sinusitis (Acute) Past Medical History Medical History (Updated 08/13/22 @ 08:52 by Kylah aLra RN) (HFpEF) heart failure with preserved ejection fraction Acute CHF Arthritis Asthma Chronic kidney disease (CKD) stage G3a/A1, moderately decreased glomerular filtration rate (GFR) between 45-59 mL/min/1.73 square meter and albuminuria creatinine ratio less than 30 mg/g COPD (chronic obstructive pulmonary disease) Diverticulosis Essential hypertension GERD (gastroesophageal reflux disease) Gout Hepatic steatosis HTN (hypertension) Hypercholesteremia Inguinal hernia Other and unspecified hyperlipidemia Sliding hiatal hernia Functional capacity: independent ambulation Family History Family History Father CHF (congestive heart failure) Mother CHF (congestive heart failure) Family history of problems with anesthesia: No Surgical History Surgical History (Updated 08/13/22 @ 08:53 by Kylah Lara RN) History of total left knee replacement Hx of rotator cuff surgery Hx of tonsillectomy History of Problems with Anesthesia: No Social History Social History (Updated 08/09/22 @ 17:10 by CARROL Eller) Household Members: Family Household Members Other:: mom, 91 y.o. 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 Meds Allergies Allergy/AdvReac Type Severity Reaction Status Date / Time shrimp Allergy Severe Anaphylaxis Verified 07/22/22 15:36 Penicillins Allergy Unknown UNKNOWN Verified 07/22/22 15:36 levofloxacin [From Levaquin] Allergy Hypertensio Verified 08/13/22 08:57 n paroxetine [From Paxil] Allergy Unknown Verified 08/13/22 08:57 prochlorperazine Allergy Unknown Verified 08/13/22 08:57 [From Compazine] tripoly phosphate Allergy Anaphylaxis Uncoded 08/13/22 08:57 Active Medications: Current Medications Acetaminophen (Acetaminophen 325 Mg Tablet) 650 mg PO Q6H PRN PRN Reason: Pain, Mild (Pain Scale 1-3) Last Admin: 08/11/22 07:38 Dose: 650 mg Albuterol Sulfate (Albuterol Sulfate 90 Mcg 8 Gm Inhaler) 2 puff INHALE Q4H PRN PRN Reason: sob Atorvastatin Calcium (Atorvastatin Calcium 40 Mg Tablet) 40 mg PO DAILY [facility] Last Admin: 08/13/22 07:37 Dose: 40 mg Benzonatate (Benzonatate 100 Mg Capsule) 100 mg PO TID PRN PRN Reason: Cough Carvedilol (Carvedilol 12.5 Mg Tablet) 37.5 mg PO BID [facility]; Protocol Last Admin: 08/13/22 07:38 Dose: 37.5 mg Clonidine HCl (Clonidine Hcl 0.2 Mg Tablet) 0.2 mg PO BEDTIME [facility]; Protocol Last Admin: 08/12/22 21:45 Dose: 0.2 mg Diphenhydramine HCl (Diphenhydramine Hcl 25 Mg Capsule) 25 mg PO DAILY [facility] Last Admin: 08/13/22 07:37 Dose: 25 mg Enoxaparin Sodium (Enoxaparin Sodium 40 Mg/0.4 Ml Syringe) 40 mg SUBCUT Q24H [facility] Last Admin: 08/12/22 20:17 Dose: 40 mg Fluticasone/Vilanterol (Fluticasone/Vilanterol 100/25 Blst.W.Dev) 1 puff INHALE RDAILY [facility] Last Admin: 08/13/22 08:36 Dose: Not Given Folic Acid (Folic Acid 1 Mg Tablet) 1 mg PO DAILY [facility] Last Admin: 08/13/22 07:37 Dose: 1 mg Furosemide (Furosemide 40 Mg Tablet) 40 mg PO SUTUTHSA@0900 [facility]; Protocol Last Admin: 08/13/22 07:37 Dose: 40 mg Furosemide (Furosemide 20 Mg Tablet) 20 mg PO MOWEFR@0900 [facility]; Protocol Last Admin: 08/12/22 08:13 Dose: 20 mg Lorazepam (Lorazepam 0.5 Mg Tablet) 0.5 mg PO BEDTIME PRN PRN Reason: ANXIETY/SLEEP Last Admin: 08/12/22 21:47 Dose: 0.5 mg Losartan Potassium (Losartan Potassium 25 Mg Tablet) 25 mg PO DAILY [facility]; Protocol Last Admin: 08/13/22 07:37 Dose: 25 mg Melatonin (Melatonin 3 Mg Tablet) 3 mg PO BEDTIME PRN PRN Reason: Insomnia Morphine Sulfate (Morphine Sulfate 4 Mg/Ml Cartridge) 4 mg IVPUSH Q4H PRN; Protocol PRN Reason: Pain, Severe (Pain Scale 7-10) Last Admin: 08/13/22 04:08 Dose: 4 mg Omeprazole (Omeprazole 20 Mg Capsule.Dr) 20 mg PO DAILY@0630 [facility] Last Admin: 08/13/22 07:37 Dose: 20 mg Ondansetron HCl (Ondansetron Hcl 4 Mg/2 Ml Vial) 4 mg IVPUSH Q8H PRN PRN Reason: Nausea and Vomiting Oxycodone HCl (Oxycodone Hcl Immed Release 5 Mg Tablet) 5 mg PO Q4H PRN PRN Reason: Pain, Moderate (Pain Scale 4-6 Last Admin: 08/12/22 21:46 Dose: 5 mg Pharmacy Consult (Consult Rx Perform Med Rec) 1 each MISCELLANE ONCE PRN PRN Reason: Consult order Pharmacy Consult (Consult Rx Perform Med Rec) 1 each MISCELLANE ONCE PRN PRN Reason: Consult order Sodium Chloride (0.9 % Sodium Chloride Flush 3 Ml Syringe) 3 ml IVFLUSH [facility] Last Admin: 08/13/22 07:38 Dose: 3 ml Home Medications Medication Instructions Recorded Confirmed Last Taken Type pantoprazole 40 mg tablet,delayed 40 mg PO DAILY 11/17/20 08/09/22 08/09/22 History release atorvastatin 40 mg tablet 40 mg PO DAILY 03/12/21 08/09/22 08/09/22 History clonidine HCl 0.1 mg tablet 2 tab PO BEDTIME 05/08/22 08/09/22 08/08/22 History losartan 25 mg tablet 25 mg PO DAILY 07/12/22 08/09/22 08/09/22 History albuterol sulfate 90 mcg/actuation 2 puff inhalation Q6H PRN 08/09/22 08/09/22 Unknown History aerosol inhaler Respiratory Distress diphenhydramine HCl 25 mg capsule 25 mg PO DAILY 08/09/22 08/09/22 08/09/22 History (Benadryl) furosemide 20 mg tablet 20 mg PO MOWEFR@0900 08/09/22 08/09/22 08/09/22 History furosemide 40 mg tablet 40 mg PO SUTUTHSA@0900 08/09/22 08/09/22 Unknown History lorazepam 0.5 mg tablet (Ativan) 0.5 mg PO BEDTIME PRN ANXIETY/SLEEP 08/09/22 08/09/22 Unknown History Exam Exam Date and Time: August 13, 2022 0842 Height,Weight and Vital Signs: Height 5 ft 5 in Weight 102.5 kg Last Vital Signs Temp 97.7 F 08/13/22 07:31 Pulse 64 08/13/22 07:31 Resp 12 08/13/22 07:31 BP 113/69 08/13/22 07:31 Pulse Ox 98 08/13/22 07:31 O2 Del Method 08/13/22 07:31 Oxygen Flow Rate 0 08/09/22 15:19 Pertinent Lab Results Pertinent Lab Results: Laboratory Tests 08/09/22 08/09/22 08/09/22 14:01 14:01 17:21 WBC 5.3 RBC 3.07 L Hgb 10.5 L Hct 31.5 L MCV 102.6 H MCH 34.2 H MCHC 33.3 RDW 13.1 Plt Count 270 MPV 9.5 Immature Gran % (Auto) 0.4 Neut % (Auto) 71.1 Lymph % (Auto) 17.5 L [place] % (Auto) 8.5 Eos % (Auto) 1.9 Baso % (Auto) 0.6 Lymph # (Auto) 0.9 L [place] # (Auto) 0.5 Eos # (Auto) 0.1 Baso # (Auto) 0.0 Abs Immat Gran (auto) 0.02 Absolute Neuts (auto) 3.8 Absolute Nucleated RBC 0.000 Nucleated RBC % (auto) 0.0 Sodium 140 Potassium 4.3 Chloride 102 Carbon Dioxide 28 Anion Gap 14 BUN 28 H Creatinine 1.24 Estim Creat Clear Calc 49.2 Estimated GFR 43 Random Glucose 105 Calcium 8.7 D Total Bilirubin 0.7 AST 19 ALT 7 Alkaline Phosphatase 87 Total Protein 6.5 Albumin 3.8 COVID-19 ([facility]) Negative COVID-19 Clin Com See Note Airway Mallampati Class: IV TM Dist: <=3cm Neck ROM: Full Loose/Missing/Broken Teeth: Yes (multiple Chipped teeth ) Heart: S1,S2 Lungs: distant breath sounds Assessment and Plan Assessment Anesthesia Assessment: Anesthesia Plan Discussed and Chart Reviewed Final Anesthetic Review Family History of Problems with Anesthesia: No History of Problems with Anesthesia: No NPO: Yes ASA Class: III Final Preanesthetic Review: Meds/Allgs Chart Reviewed, Consent Obtained/Reviewed and Anes Risks/Benef Reviewed Patient Risk: Intermediate Procedure Risk: Intermediate Anesthetic Plan Anesthetic Plan: MAC: Disposition: Standard PACU
--- NOTE | 2022-08-13 09:06 | MHC.SHP ---
Pre-Procedural Eval Section A Date of Service: 08/13/22 Section B Chief Complaint: left ankle trimalleolar fracture Details of Present Illness: S/p Fall Relevant Family History (Specify if Yes): No Relevant Social History: None Present Medications: see Short Stay Collaborative assessment Medical History: Significant History History of Previous Operations: No relevant previous surgery Allergies: Allergies Allergy/AdvReac Type Severity Reaction Status Date / Time shrimp Allergy Severe Anaphylaxis Verified 07/22/22 15:36 Penicillins Allergy Unknown UNKNOWN Verified 07/22/22 15:36 levofloxacin [From Levaquin] Allergy Hypertensio Verified 08/13/22 08:57 n paroxetine [From Paxil] Allergy Unknown Verified 08/13/22 08:57 prochlorperazine Allergy Unknown Verified 08/13/22 08:57 [From Compazine] tripoly phosphate Allergy Anaphylaxis Uncoded 08/13/22 08:57 Review of Systems Sugical H&P ROS: Negative: Constitution, Cardiovascular, Respiratory, Neurological, Psychiatric, Hem-Onc, Allergic/Immunologic, Gastrointestinal, Genitourinary, Integumentary, Endocrine and Eyes/Ears/Nose/Throat and Yes, Specify: Musculoskeletal (Left ankle pain) Exam Surgical H&P Exam: Normal: HEENT, Normal: Heart, Normal: Lungs, Normal: Extremities, Normal: Abdomen and Normal: Skin and Significant Findings: Neurological (Left ankle swelling) Plan Diagnosis/Plan: Change (Left ankle operative fixation) I have reviewed the history and physical and performed a pertinent physical examination on my patient. No changes have occurred unless specified. Time Spent With Patient Time: Total time managing care of this patient today ___20_ minutes.
--- NOTE | 2022-08-13 09:48 | P.PNIM_ITS ---
Subjective Subjective Date of Service: 08/13/22 Interval History: seen and examined this morning Follow-up for left trimalleolar fracture Pain under adequate control post op Review of Systems goog pain control no sob, no chest pain Physical Exam Vital Signs: Vital Signs: Last Vital Signs Temp 97.2 F 08/13/22 08:44 Pulse 65 08/13/22 08:44 Resp 16 08/13/22 08:44 BP 140/80 H 08/13/22 08:44 Pulse Ox 98 08/13/22 08:44 O2 Del Method 08/13/22 08:44 Oxygen Flow Rate 0 08/09/22 15:19 BMI result Body Mass Index 37.5 Const: Other: General: AO X 3, no acute distress Resp: CTA bilateral CVS: S1,S2,RRR GI: +BS, NT, no distention Skin: No rash Neuro: motor grossly intact Psych: appropriate affect Objective Data Active Medications Acetaminophen (Acetaminophen 325 Mg Tablet) 650 mg PO Q6H PRN PRN Reason: Pain, Mild (Pain Scale 1-3) Last Admin: 08/11/22 07:38 Dose: 650 mg Documented By: ABHIJEET Albuterol Sulfate (Albuterol Sulfate 90 Mcg 8 Gm Inhaler) 2 puff INHALE Q4H PRN PRN Reason: sob Atorvastatin Calcium (Atorvastatin Calcium 40 Mg Tablet) 40 mg PO DAILY [facility] Last Admin: 08/13/22 07:37 Dose: 40 mg Documented By: NITHYA Benzonatate (Benzonatate 100 Mg Capsule) 100 mg PO TID PRN PRN Reason: Cough Carvedilol (Carvedilol 12.5 Mg Tablet) 37.5 mg PO BID [facility]; Protocol Last Admin: 08/13/22 07:38 Dose: 37.5 mg Documented By: NITHYA Clonidine HCl (Clonidine Hcl 0.2 Mg Tablet) 0.2 mg PO BEDTIME [facility]; Protocol Last Admin: 08/12/22 21:45 Dose: 0.2 mg Documented By: SHIVARISPurvi Diphenhydramine HCl (Diphenhydramine Hcl 25 Mg Capsule) 25 mg PO DAILY [facility] Last Admin: 08/13/22 07:37 Dose: 25 mg Documented By: NITHYA Enoxaparin Sodium (Enoxaparin Sodium 40 Mg/0.4 Ml Syringe) 40 mg SUBCUT Q24H JOSÉ Last Admin: 08/12/22 20:17 Dose: 40 mg Documented By: RODNEY Fluticasone/Vilanterol (Fluticasone/Vilanterol 100/25 Blst.W.Dev) 1 puff INHALE RDAILY [facility] Last Admin: 08/13/22 08:36 Dose: Not Given Documented By: ASHER Non-Admin Reason: Not In Room Folic Acid (Folic Acid 1 Mg Tablet) 1 mg PO DAILY [facility] Last Admin: 08/13/22 07:37 Dose: 1 mg Documented By: NITHYA Furosemide (Furosemide 40 Mg Tablet) 40 mg PO SUTUTHSA@0900 [facility]; Protocol Last Admin: 08/13/22 07:37 Dose: 40 mg Documented By: NITHYA Furosemide (Furosemide 20 Mg Tablet) 20 mg PO MOWEFR@0900 [facility]; Protocol Last Admin: 08/12/22 08:13 Dose: 20 mg Documented By: NITHYA Lorazepam (Lorazepam 0.5 Mg Tablet) 0.5 mg PO BEDTIME PRN PRN Reason: ANXIETY/SLEEP Last Admin: 08/12/22 21:47 Dose: 0.5 mg Documented By: RODNEY Losartan Potassium (Losartan Potassium 25 Mg Tablet) 25 mg PO DAILY [facility]; Protocol Last Admin: 08/13/22 07:37 Dose: 25 mg Documented By: NITHYA Melatonin (Melatonin 3 Mg Tablet) 3 mg PO BEDTIME PRN PRN Reason: Insomnia Morphine Sulfate (Morphine Sulfate 4 Mg/Ml Cartridge) 4 mg IVPUSH Q4H PRN; Protocol PRN Reason: Pain, Severe (Pain Scale 7-10) Last Admin: 08/13/22 04:08 Dose: 4 mg Documented By: RODNEY Omeprazole (Omeprazole 20 Mg Capsule.Dr) 20 mg PO DAILY@0630 [facility] Last Admin: 08/13/22 07:37 Dose: 20 mg Documented By: NITHYA Ondansetron HCl (Ondansetron Hcl 4 Mg/2 Ml Vial) 4 mg IVPUSH Q8H PRN PRN Reason: Nausea and Vomiting Oxycodone HCl (Oxycodone Hcl Immed Release 5 Mg Tablet) 5 mg PO Q4H PRN PRN Reason: Pain, Moderate (Pain Scale 4-6 Last Admin: 08/12/22 21:46 Dose: 5 mg Documented By: RODNEY Pharmacy Consult (Consult Rx Perform Med Rec) 1 each MISCELLANE ONCE PRN PRN Reason: Consult order Pharmacy Consult (Consult Rx Perform Med Rec) 1 each MISCELLANE ONCE PRN PRN Reason: Consult order Sodium Chloride (0.9 % Sodium Chloride Flush 3 Ml Syringe) 3 ml IVFLUSH QSHIFT JOSÉ Last Admin: 08/13/22 07:38 Dose: 3 ml Documented By: NITHYA Labs CBC & Chem 7: 08/09/22 14:01 08/09/22 14:01 Assessment and Plan (1) Closed left trimalleolar fracture: Status: Acute Plan 72-year-old female with history of COPD, HFpEF, HTN who presents to the emergency department after a fall found to have left trimalleolar fracture status post reduction left trimalleolar fracture s/p reduction and splinting in ED -Plan for ORIF of ankle today 08/13 -PT evaluation post op -pain control -elevate foot, NWB -morphine for pain hypertension intermittent highs likley from pain - continue home losartan, coreg, clonidine - adequate pain control - monitor blood pressure closely COPD no acute exacerbation continue home medications HLD continue statin HFpEF compensated continue home lasix DT ppx - lovenox Need for inpatient: awaiting surgery (ORIF) Time Spent With Patient Time: Total time managing care of this patient today ____ minutes. Quality Stroke Does the patient have a stroke diagnosis?: No VTE Prior VTE?: No VTE Risk Level:: Medical - moderate - high VTE Device Contraindication: Treatment Not Indicated VTE Drug Contraindication: N/A - Med Ordered
--- NOTE | 2022-08-13 11:12 | PM.OP ---
Brief Operative Note Date of Service: 08/13/22 Pre-op diagnosis: left ankle fracture Post-op diagnosis: same Procedure: ORIF lateral mal ORIF syndesmosis Implants: [place] lateral locking plate Arthrex syndesmosis tightrope Surgeon: Chino Trimble MD Anesthesia: GETA Was an Member Of Congress used for this Procedure?: No Member Of Congress: Brooks Mendoza Estimated blood loss (mL): 25 Tourniquet time (min): 40 IV fluids (mL): 800 Pathology: none sent Condition: stable Disposition: PACU
[2022-08-13] MEDS: Acetaminophen 1,000 MG/100 ML PIGGYBACK 400 MG IV (11:34)
[2022-08-13] MEDS: Enoxaparin Sodium 40 MG/0.4 ML SYRINGE SUBCUT (18:35)
[2022-08-13] MEDS: oxyCODONE HCl Immed Release 5 MG TABLET PO ×2 (18:35→23:28)
[2022-08-13] MEDS: cloNIDine HCL 0.2 MG TABLET PO (20:58)
[2022-08-13] MEDS: LORazepam 0.5 MG TABLET PO (23:29)
[2022-08-14] MEDS: 0.9 % Sodium Chloride Flush 3 ML SYRINGE IVFLUSH ×4 (01:28→20:26)
[2022-08-14] MEDS: Morphine Sulfate 4 MG/ML CARTRIDGE IVPUSH ×3 (02:21→13:07)
[2022-08-14 03:32] VITALS: BP 132/65; PULSE 85; RESP 18; TEMP 36.8; O2SAT 96
[2022-08-14] MEDS: Omeprazole 20 MG CAPSULE.DR PO (05:24)
[2022-08-14] MEDS: oxyCODONE HCl Immed Release 5 MG TABLET PO ×4 (05:24→20:07)
--- NOTE | 2022-08-14 07:33 | PM.PNORT ---
Subjective Subjective Date of Service: 08/14/22 Interval history: POD1 s/p left ankle ORIF. Pain in the left ankle appears to be well managed. Patient c/o back pain. No overnight events. No additional complaints. Physical Exam Vital Signs: Vital Signs: Last Vital Signs Temp 98.2 F 08/14/22 03:32 Pulse 85 08/14/22 03:32 Resp 18 08/14/22 03:32 BP 132/65 08/14/22 03:32 Pulse Ox 96 08/14/22 03:32 O2 Del Method 08/14/22 03:32 O2 Flow Rate 1.5 08/13/22 13:00 Oxygen Flow Rate 0 08/09/22 15:19 BMI result Body Mass Index 37.5 Extrem: Other: Left ankle splint is c/d/i. Able to move all digits. Sensation intact. Capillary refill is brisk. Procedures Date of Service Date of Service: 08/14/22 Progress Note: A&P Assessment and plan (1) Closed left trimalleolar fracture: Status: Acute Assessment and Plan: Continue pain mgmnt Resume dvt ppx - Lovenox Elevate above heart level Begin PT for left ankle ORIF - NWB Dispo planning-Pending PT eval, pain mgmnt (2) Hx of reduction of closed fracture: Status: Acute (3) Occult fracture: Status: Acute Time Spent With Patient Time: Total time managing care of this patient today ____ minutes. Quality Stroke Does the patient have a stroke diagnosis?: No VTE Prior VTE?: No VTE Risk Level:: Medical - moderate - high VTE Device Contraindication: Treatment Not Indicated VTE Drug Contraindication: N/A - Med Ordered
[2022-08-14 07:50] VITALS: BP 109/57; PULSE 82; RESP 18; TEMP 37.6; O2SAT 95
[2022-08-14] MEDS: Fluticasone/Vilanterol 100/25 BLST.W.DEV 1 PUFF INHALE (08:20)
[2022-08-14 08:22] VITALS: PULSE 84; RESP 18; O2SAT 96
--- NOTE | 2022-08-14 08:46 | P.OP_ITS ---
Operative Note Operative Note Date of Service: 08/13/22 Narrative: Date of Service: 08/13/22 Pre-op diagnosis: left ankle fracture Post-op diagnosis: same Procedure: ORIF lateral mal ORIF syndesmosis Implants: [place] lateral locking plate Arthrex syndesmosis tightrope Surgeon: Chino Trimble MD Anesthesia: GETA Was an Process Control Specialist used for this Procedure?: No Process Control Specialist: Brooks Mendoza Estimated blood loss (mL): 25 Tourniquet time (min): 40 IV fluids (mL): 800 Pathology: none sent Condition: stable Disposition: PACU Procedure in detail: Patient was brought to the operating room and placed supine on the operative table. All bony prominences were well padded and a time-out was called to identify proper site proper procedure proper surgeon. IV antibiotics per weight were administered. I began by exsanguinating limb is slightly tourniquet to 300 mm Hg. I then made a standard posterolateral incision over the fibula. Full- thickness flaps were taken down to the fibular shaft and distal fibula. The fracture was identified and cleaned with a combination of curette, rongeur and irrigation. A lobster claw was used to provisionally reduce the fracture and a 6 hole distal fibular locking plate was applied using standard AO technique. Biplanar fluoroscopy was used to confirm hardware position and fracture reduction. Once I was satisfied that both of these were acceptable I irrigated copiously and turned my attention to the syndesmosis. The medial mortise was widened. I made a stab incision medially and with a large C-clamp reduced the syndesmosis. I then drilled throguht the lateral plate for a tightrope from lateral to medial and at a 20deg anterior inclination at the level of the physeal scar. I then placed the tightrope, tightened it and released the c- clamp. The mortise was symmetrical and an external rotation stress test was negative. Therefore all instrumentation was removed and copious irrigation was performed. Absorbable suture and kaylynn were used for closure and the patient was placed into sterile dressings and a well-padded posterior splint. To urniquet was let down and the patient was extubated brought to recovery room in stable condition there were no known complications.
--- NOTE | 2022-08-14 08:58 | HO.PM.IMPN ---
Subjective Subjective Date of Service: 08/14/22 Interval History: seen and examined this morning Follow-up for left trimalleolar fracture Pain under adequate control post op D1, has some soreness in the back likely from being in bed Review of Systems goog pain control no sob, no chest pain Physical Exam Vital Signs: Vital Signs: Last Vital Signs Temp 99.6 F 08/14/22 07:50 Pulse 84 08/14/22 08:22 Resp 18 08/14/22 08:22 BP 109/57 L 08/14/22 07:50 Pulse Ox 95 08/14/22 07:50 O2 Del Method 08/14/22 07:50 O2 Flow Rate 1.5 08/13/22 13:00 Oxygen Flow Rate 0 08/09/22 15:19 BMI result Body Mass Index 37.5 Const: Other: General: AO X 3, no acute distress Resp: CTA bilateral CVS: S1,S2,RRR GI: +BS, NT, no distention Skin: No rash Neuro: motor grossly intact Psych: appropriate affect MSK: left splint in place Objective Data Active Medications Acetaminophen (Acetaminophen 325 Mg Tablet) 650 mg PO Q6H PRN PRN Reason: Pain, Mild (Pain Scale 1-3) Last Admin: 08/11/22 07:38 Dose: 650 mg Documented By: ABHIJEET Albuterol Sulfate (Albuterol Sulfate 90 Mcg 8 Gm Inhaler) 2 puff INHALE Q4H PRN PRN Reason: sob Atorvastatin Calcium (Atorvastatin Calcium 40 Mg Tablet) 40 mg PO DAILY [facility] Last Admin: 08/13/22 07:37 Dose: 40 mg Documented By: NITHYA Benzonatate (Benzonatate 100 Mg Capsule) 100 mg PO TID PRN PRN Reason: Cough Carvedilol (Carvedilol 12.5 Mg Tablet) 37.5 mg PO BID [facility]; Protocol Last Admin: 08/13/22 20:58 Dose: 37.5 mg Documented By: RAUL Clonidine HCl (Clonidine Hcl 0.2 Mg Tablet) 0.2 mg PO BEDTIME [facility]; Protocol Last Admin: 08/13/22 20:58 Dose: 0.2 mg Documented By: RAUL Diphenhydramine HCl (Diphenhydramine Hcl 25 Mg Capsule) 25 mg PO DAILY [facility] Last Admin: 08/13/22 07:37 Dose: 25 mg Documented By: NITHYA Enoxaparin Sodium (Enoxaparin Sodium 40 Mg/0.4 Ml Syringe) 40 mg SUBCUT Q24H [facility] Last Admin: 08/13/22 18:35 Dose: 40 mg Documented By: NITHYA Fluticasone/Vilanterol (Fluticasone/Vilanterol 100/25 Blst.W.Dev) 1 puff INHALE RDAILY [facility] Last Admin: 08/14/22 08:20 Dose: 1 puff Documented By: CARLO Folic Acid (Folic Acid 1 Mg Tablet) 1 mg PO DAILY [facility] Last Admin: 08/13/22 07:37 Dose: 1 mg Documented By: NITHYA Furosemide (Furosemide 40 Mg Tablet) 40 mg PO SUTUTHSA@0900 [facility]; Protocol Last Admin: 08/13/22 07:37 Dose: 40 mg Documented By: NITHYA Furosemide (Furosemide 20 Mg Tablet) 20 mg PO MOWEFR@0900 [facility]; Protocol Last Admin: 08/12/22 08:13 Dose: 20 mg Documented By: NITHYA Hydromorphone HCl (Hydromorphone Hcl 0.5 Mg/0.5 Ml Syringe) 0.25 mg IVPUSH Q5M PRN; Protocol PRN Reason: Pain, Severe (Pain Scale 7-10) Cefazolin Sodium/Dextrose (Ancef) 2 gm in 50 mls @ 100 mls/hr IV POSTOP JOSÉ Lorazepam (Lorazepam 0.5 Mg Tablet) 0.5 mg PO BEDTIME PRN PRN Reason: ANXIETY/SLEEP Last Admin: 08/13/22 23:29 Dose: 0.5 mg Documented By: RAUL Losartan Potassium (Losartan Potassium 25 Mg Tablet) 25 mg PO DAILY [facility]; Protocol Last Admin: 08/13/22 07:37 Dose: 25 mg Documented By: NITHYA Melatonin (Melatonin 3 Mg Tablet) 3 mg PO BEDTIME PRN PRN Reason: Insomnia Morphine Sulfate (Morphine Sulfate 4 Mg/Ml Cartridge) 4 mg IVPUSH Q4H PRN; Protocol PRN Reason: Pain, Severe (Pain Scale 7-10) Last Admin: 08/14/22 02:21 Dose: 4 mg Documented By: KVNG Omeprazole (Omeprazole 20 Mg Capsule.Dr) 20 mg PO DAILY@0630 [facility] Last Admin: 08/14/22 05:24 Dose: 20 mg Documented By: RASHI Ondansetron HCl (Ondansetron Hcl 4 Mg/2 Ml Vial) 4 mg IVPUSH Q8H PRN PRN Reason: Nausea and Vomiting Oxycodone HCl (Oxycodone Hcl Immed Release 5 Mg Tablet) 5 mg PO Q4H PRN PRN Reason: Pain, Moderate (Pain Scale 4-6 Last Admin: 08/14/22 05:24 Dose: 5 mg Documented By: RASHI Pharmacy Consult (Consult Rx Perform Med Rec) 1 each MISCELLANE ONCE PRN PRN Reason: Consult order Pharmacy Consult (Consult Rx Perform Med Rec) 1 each MISCELLANE ONCE PRN PRN Reason: Consult order Sodium Chloride (0.9 % Sodium Chloride Flush 3 Ml Syringe) 3 ml IVFLUSH QSHIFT [facility] Last Admin: 08/14/22 01:28 Dose: 3 ml Documented By: KVNG Labs CBC & Chem 7: 08/09/22 14:01 08/09/22 14:01 Assessment and Plan (1) Closed left trimalleolar fracture: Status: Acute Plan 72-year-old female with history of COPD, HFpEF, HTN who presents to the emergency department after a fall found to have left trimalleolar fracture status post reduction left trimalleolar fracture s/p reduction and splinting in ED s/p ORIF of ankle 08/13, POD1 -PT assessment -pain control -morphine for pain hypertension intermittent highs likley from pain - continue home losartan, coreg, clonidine - adequate pain control - monitor blood pressure closely COPD no acute exacerbation continue home medications HLD continue statin HFpEF compensated continue home lasix DT ppx - lovenox Need for inpatient: Will need placement for rehab post ankle surger ultimately will need to go to rehab Time Spent With Patient Time: Total time managing care of this patient today ____ minutes. Quality Stroke Does the patient have a stroke diagnosis?: No VTE Prior VTE?: No VTE Risk Level:: Medical - moderate - high VTE Device Contraindication: Treatment Not Indicated VTE Drug Contraindication: N/A - Med Ordered
[2022-08-14] MEDS: Atorvastatin Calcium 40 MG TABLET PO (08:59)
[2022-08-14] MEDS: diphenhydrAMINE HCL 25 MG CAPSULE PO (08:59)
[2022-08-14] MEDS: Folic Acid 1 MG TABLET PO (08:59)
[2022-08-14] MEDS: carvediloL 12.5 MG TABLET 37.5 MG PO ×2 (09:00→20:25)
[2022-08-14] MEDS: Losartan Potassium 25 MG TABLET PO (09:00)
[2022-08-14] MEDS: Furosemide 20 MG TABLET PO (09:00)
[2022-08-14 11:22] VITALS: O2SAT 95
--- NOTE | 2022-08-14 14:51 | MHC.CM.PN ---
EMR REVIEWED PT NOT MEDICALLY CLEARED FOR DC TODAY, (POST OP ANKLE REPAIR DAY 1, PAIN MANAGEMENT) [facility] FOLLOWING, CM WILL CONTINUE TO FOLLOW.
[2022-08-14 15:17] VITALS: BP 140/64; PULSE 84; RESP 19; TEMP 37.6; O2SAT 94
--- NOTE | 2022-08-14 15:22 | HO.POSTANES ---
Post Anesthesia Evaluation Post Anesthesia Evaluation Vital Signs: Vital Signs Temp Pulse Resp BP Pulse Ox O2 Del Method 08/14/22 15:17 99.7 F 84 19 140/64 H 94 Room Air 08/14/22 11:22 95 Room Air 08/14/22 08:22 84 18 08/14/22 07:50 99.6 F 82 18 109/57 L 95 Room Air 08/14/22 03:32 98.2 F 85 18 132/65 96 Room Air Anesthesia: Nerve Block and General Mental Status: Awake Pain Control: Satisfactory Nausea/Vomiting: None Hydration: Adequate Anesthesia-Related Issues: No Anes. Related Issues
[2022-08-14] MEDS: Morphine Sulfate 2 MG/ML CARTRIDGE IVPUSH (18:06)
[2022-08-14] MEDS: Enoxaparin Sodium 40 MG/0.4 ML SYRINGE SUBCUT (18:23)
[2022-08-14 20:00] VITALS: BP 170/74; PULSE 89; RESP 18; TEMP 36.8; O2SAT 99
[2022-08-14] MEDS: cloNIDine HCL 0.2 MG TABLET PO (20:07)
[2022-08-14] MEDS: Acetaminophen 1,000 MG/100 ML PIGGYBACK 400 MG IV (20:25)
[2022-08-15] MEDS: Morphine Sulfate 2 MG/ML CARTRIDGE IVPUSH ×3 (01:49→20:58)
[2022-08-15] MEDS: Acetaminophen 1,000 MG/100 ML PIGGYBACK 400 MG IV ×2 (02:49→07:55)
[2022-08-15 03:16] VITALS: BP 123/72; PULSE 65; RESP 16; TEMP 36.1; O2SAT 100
--- NOTE | 2022-08-15 04:02 | PC.NURSE ---
Pt was on excruciating pain at start of shift, c/o mid back pain 10/10 radiating to the front and worst on inspiration, pt became very anxious c/o dyspnea, O2 sat =95% RA, O2 at 2L/min via NC placed for support, stayed with pt and reassured, PRN Oxy given and scheduled Tylenol IV was started, pt verbalized relief after the Tylenol, and noted more relax and calm, transport took pt to radiology for lumbar spine XR, back to bed after, pt slept most of the night.
[2022-08-15] MEDS: Omeprazole 20 MG CAPSULE.DR PO (06:18)
[2022-08-15 07:43] VITALS: BP 155/71; PULSE 74; RESP 16; TEMP 37; O2SAT 100
[2022-08-15] MEDS: 0.9 % Sodium Chloride Flush 3 ML SYRINGE IVFLUSH ×3 (07:52→19:12)
[2022-08-15] MEDS: Furosemide 40 MG TABLET PO (07:53)
[2022-08-15] MEDS: Losartan Potassium 25 MG TABLET PO (07:53)
--- NOTE | 2022-08-15 07:53 | PM.PNORT ---
Subjective Subjective Date of Service: 08/15/22 Interval history: POD2 s/p left ankle ORIF. Pain in the left ankle appears to be well managed. Patient c/o back pain. No overnight events. No additional complaints. Physical Exam Vital Signs: Vital Signs: Last Vital Signs Temp 98.6 F 08/15/22 07:43 Pulse 74 08/15/22 07:43 Resp 16 08/15/22 07:43 BP 155/71 H 08/15/22 07:43 Pulse Ox 100 08/15/22 07:43 O2 Del Method 08/15/22 07:43 O2 Flow Rate 2.0 08/15/22 07:43 Oxygen Flow Rate 0 08/09/22 15:19 BMI result Body Mass Index 37.5 Extrem: Other: Left ankle splint is c/d/i. Able to move all digits. Sensation intact. Capillary refill is brisk. Procedures Date of Service Date of Service: 08/15/22 Progress Note: A&P Assessment and plan (1) Occult fracture: Status: Acute (2) Closed left trimalleolar fracture: Status: Acute Assessment and Plan: Continue pain mgmnt Continue dvt ppx - Lovenox Elevate above heart level Begin PT for left ankle ORIF - NWB Dispo planning-Pending PT eval, pain mgmnt (3) Hx of reduction of closed fracture: Status: Acute Time Spent With Patient Time: Total time managing care of this patient today ____ minutes. Quality Stroke Does the patient have a stroke diagnosis?: No VTE Prior VTE?: No VTE Risk Level:: Medical - moderate - high VTE Device Contraindication: Treatment Not Indicated VTE Drug Contraindication: N/A - Med Ordered
[2022-08-15] MEDS: Atorvastatin Calcium 40 MG TABLET PO (07:54)
[2022-08-15] MEDS: carvediloL 12.5 MG TABLET 37.5 MG PO ×2 (07:54→19:11)
[2022-08-15] MEDS: diphenhydrAMINE HCL 25 MG CAPSULE PO (07:54)
[2022-08-15] MEDS: Folic Acid 1 MG TABLET PO (07:54)
[2022-08-15] MEDS: Fluticasone/Vilanterol 100/25 BLST.W.DEV 1 PUFF INHALE (07:56)
[2022-08-15 07:57] VITALS: PULSE 81; RESP 18; O2SAT 96
[2022-08-15] MEDS: oxyCODONE HCl Immed Release 5 MG TABLET PO ×3 (13:02→23:39)
[2022-08-15] MEDS: Lactulose 20 GM/30 ML SOLUTION PO (13:03)
--- NOTE | 2022-08-15 13:04 | P.PNIM_ITS ---
Subjective Subjective Date of Service: 08/15/22 Interval History: the patient was seen and evaluated this morning Laying in bed, feels comfortable as pain is under fair control able to participate partially with PT No reported other overnight events. Systemic review: No fever, chills or weakness No chest pain, palpitation No shortness of breath or coughing No abdominal pain, nausea or vomiting No urinary symptoms No reported rash Physical Exam Vital Signs: Vital Signs: Last Vital Signs Temp 98.6 F 08/15/22 07:43 Pulse 81 08/15/22 07:57 Resp 18 08/15/22 07:57 BP 155/71 H 08/15/22 07:43 Pulse Ox 100 08/15/22 07:43 O2 Del Method 08/15/22 07:43 O2 Flow Rate 2.0 08/15/22 07:43 Oxygen Flow Rate 0 08/09/22 15:19 BMI result Body Mass Index 37.5 Const: Other: General: AO X 3, no acute distress Resp: CTA bilateral CVS: S1,S2,RRR GI: +BS, NT, no distention Skin: No rash Neuro: motor grossly intact Psych: appropriate affect MSK: left splint in place Objective Data Active Medications Acetaminophen (Acetaminophen 325 Mg Tablet) 975 mg PO TID [facility] Albuterol Sulfate (Albuterol Sulfate 90 Mcg 8 Gm Inhaler) 2 puff INHALE Q4H PRN PRN Reason: sob Atorvastatin Calcium (Atorvastatin Calcium 40 Mg Tablet) 40 mg PO DAILY [facility] Last Admin: 08/15/22 07:54 Dose: 40 mg Documented By: KIMBERLEY Benzonatate (Benzonatate 100 Mg Capsule) 100 mg PO TID PRN PRN Reason: Cough Carvedilol (Carvedilol 12.5 Mg Tablet) 37.5 mg PO BID [facility]; Protocol Last Admin: 08/15/22 07:54 Dose: 37.5 mg Documented By: KIMBERLEY Clonidine HCl (Clonidine Hcl 0.2 Mg Tablet) 0.2 mg PO BEDTIME [facility]; Protocol Last Admin: 08/14/22 20:07 Dose: 0.2 mg Documented By: AUNG Comments: QB=210/77 Diphenhydramine HCl (Diphenhydramine Hcl 25 Mg Capsule) 25 mg PO DAILY [facility] Last Admin: 08/15/22 07:54 Dose: 25 mg Documented By: KIMBERLEY Enoxaparin Sodium (Enoxaparin Sodium 40 Mg/0.4 Ml Syringe) 40 mg SUBCUT Q24H [facility] Last Admin: 08/14/22 18:23 Dose: 40 mg Documented By: HAWA Fluticasone/Vilanterol (Fluticasone/Vilanterol 100/25 Blst.W.Dev) 1 puff INHALE RDAILY [facility] Last Admin: 08/15/22 07:56 Dose: 1 puff Documented By: TAYLER Folic Acid (Folic Acid 1 Mg Tablet) 1 mg PO DAILY [facility] Last Admin: 08/15/22 07:54 Dose: 1 mg Documented By: KIMBERLEY Furosemide (Furosemide 40 Mg Tablet) 40 mg PO SUTUTHSA@0900 [facility]; Protocol Last Admin: 08/15/22 07:53 Dose: 40 mg Documented By: KIMBERLEY Furosemide (Furosemide 20 Mg Tablet) 20 mg PO MOWEFR@0900 [facility]; Protocol Last Admin: 08/14/22 09:00 Dose: 20 mg Documented By: HAWA Cefazolin Sodium/Dextrose (Ancef) 2 gm in 50 mls @ 100 mls/hr IV POSTOP [facility] Ibuprofen (Ibuprofen 200 Mg Tablet) 200 mg PO TIDWM [facility] Lactulose (Lactulose 20 Gm/30 Ml Solution) 20 gm PO DAILY [facility] Losartan Potassium (Losartan Potassium 25 Mg Tablet) 25 mg PO DAILY [facility]; Protocol Last Admin: 08/15/22 07:53 Dose: 25 mg Documented By: KIMBERLEY Melatonin (Melatonin 3 Mg Tablet) 3 mg PO BEDTIME PRN PRN Reason: Insomnia Morphine Sulfate (Morphine Sulfate 2 Mg/Ml Cartridge) 2 mg IVPUSH Q6H PRN; Protocol PRN Reason: Pain, Severe (Pain Scale 7-10) Last Admin: 08/15/22 07:50 Dose: 2 mg Documented By: KIMBERLEY Omeprazole (Omeprazole 20 Mg Capsule.Dr) 20 mg PO DAILY@0630 [facility] Last Admin: 08/15/22 06:18 Dose: 20 mg Documented By: AUNG Ondansetron HCl (Ondansetron Hcl 4 Mg/2 Ml Vial) 4 mg IVPUSH Q8H PRN PRN Reason: Nausea and Vomiting Oxycodone HCl (Oxycodone Hcl Immed Release 5 Mg Tablet) 5 mg PO Q4H PRN PRN Reason: Pain, Moderate (Pain Scale 4-6 Last Admin: 08/14/22 20:07 Dose: 5 mg Documented By: AUNG Pharmacy Consult (Consult Rx Perform Med Rec) 1 each MISCELLANE ONCE PRN PRN Reason: Consult order Pharmacy Consult (Consult Rx Perform Med Rec) 1 each MISCELLANE ONCE PRN PRN Reason: Consult order Sodium Chloride (0.9 % Sodium Chloride Flush 3 Ml Syringe) 3 ml IVFLUSH QSHIFT [facility] Last Admin: 08/15/22 07:52 Dose: 3 ml Documented By: KIMBERLYE Labs CBC & Chem 7: 08/09/22 14:01 08/09/22 14:01 Assessment and Plan (1) Closed left trimalleolar fracture: Status: Acute Plan 72-year-old female with history of COPD, HFpEF, HTN who presents to the emergency department after a fall found to have left trimalleolar fracture status post reduction left trimalleolar fracture s/p reduction and splinting in ED s/p ORIF of ankle 08/13, POD1 PT assessment pain control with oxycodone, Tylenol and Advil morphine for pain as needed hypertension intermittent highs likley from pain continue home losartan, coreg, clonidine pain control monitor blood pressure closely COPD no acute exacerbation continue home medications HLD continue statin HFpEF compensated continue home lasix DT ppx - lovenox Need for inpatient: pending placement for rehab post ankle surger Time Spent With Patient Time: Total time managing care of this patient today ____ minutes. Quality Stroke Does the patient have a stroke diagnosis?: No VTE Prior VTE?: No VTE Risk Level:: Medical - moderate - high VTE Device Contraindication: Treatment Not Indicated VTE Drug Contraindication: N/A - Med Ordered
--- NOTE | 2022-08-15 14:40 | MHC.CM.PN ---
PT HAS BEEN ACCEPTED AT [facility]. THE FACILITY HAS STARTED INSURANCE AUTH WITH HER OUT OF STATE BLUE CROSS. MD AWARE. CM WILL CONTINUE TO FOLLOW.
[2022-08-15] MEDS: Acetaminophen 325 MG TABLET 975 MG PO ×2 (15:44→20:57)
[2022-08-15 15:45] VITALS: BP 163/77; PULSE 82; RESP 18; TEMP 37.1; O2SAT 99
[2022-08-15] MEDS: Ibuprofen 200 MG TABLET PO (18:16)
--- NOTE | 2022-08-15 19:02 | PC.NURSE ---
182: Pt returned from MRI and stated she was unable to complete MRI due to back pain while laying on table. . Tigertext sent to Dr Brewer. 1844: has not read his tiger text, reported off to oncoming nurse Selena to followup with
[2022-08-15 19:04] VITALS: BP 144/65; PULSE 83; RESP 18; TEMP 37.1; O2SAT 97
[2022-08-15] MEDS: Enoxaparin Sodium 40 MG/0.4 ML SYRINGE SUBCUT (19:10)
[2022-08-15] MEDS: cloNIDine HCL 0.2 MG TABLET PO (19:10)
[2022-08-15] MEDS: Melatonin 3 MG TABLET PO (23:41)
--- NOTE | 2022-08-16 | ECG_ITS ---
Test Reason : CHEST PAIN Blood Pressure : / mmHG Vent. Rate : 067 BPM Atrial Rate : 067 BPM P-R Int : 136 ms QRS Dur : 098 ms QT Int : 420 ms P-R-T Axes : 028 -02 -01 degrees QTc Int : 443 ms Normal sinus rhythm Normal ECG When compared with ECG of 09-AUG-2022 16:00, No significant change was found Referred By: Mery Brewer Electronically Signed By:Terell Almaraz
[2022-08-16 03:12] VITALS: BP 116/66; PULSE 64; RESP 18; TEMP 36.1; O2SAT 98
[2022-08-16] MEDS: Omeprazole 20 MG CAPSULE.DR PO (05:32)
[2022-08-16] MEDS: oxyCODONE HCl Immed Release 5 MG TABLET PO (05:35)
--- NOTE | 2022-08-16 08:20 | PM.PNORT ---
Subjective Subjective Date of Service: 08/16/22 Interval history: POD 3 s/p left ankle ORIF. Pain in the left ankle appears to be well managed. Patient c/o back pain. No overnight events. No additional complaints. Physical Exam Vital Signs: Vital Signs: Last Vital Signs Temp 97.0 F 08/16/22 03:12 Pulse 64 08/16/22 03:12 Resp 18 08/16/22 03:12 BP 116/66 08/16/22 03:12 Pulse Ox 98 08/16/22 03:12 O2 Del Method 08/16/22 03:12 O2 Flow Rate 2.0 08/15/22 07:43 Oxygen Flow Rate 0 08/09/22 15:19 BMI result Body Mass Index 37.5 Extrem: Other: Left ankle skin intact, kaylynn intact, mild swelling, no drainage. Able to move all digits. Sensation intact. Capillary refill is brisk. Procedures Date of Service Date of Service: 08/16/22 Progress Note: A&P Assessment and plan (1) Occult fracture: Status: Acute (2) Closed left trimalleolar fracture: Status: Acute Assessment and Plan: Continue pain mgmnt Continue dvt ppx - Lovenox Elevate above heart level PT for left ankle ORIF - NWB--will transition to a boot due to patients chronic psoriasis to allow for breathing. Dispo planning-cleared from ortho standpoint, f/u in office on 08/20/22 (3) Hx of reduction of closed fracture: Status: Acute Time Spent With Patient Time: Total time managing care of this patient today ____ minutes. Quality Stroke Does the patient have a stroke diagnosis?: No VTE Prior VTE?: No VTE Risk Level:: Medical - moderate - high VTE Device Contraindication: Treatment Not Indicated VTE Drug Contraindication: N/A - Med Ordered
[2022-08-16] MEDS: Ibuprofen 200 MG TABLET PO ×2 (10:21→13:01)
[2022-08-16] MEDS: diphenhydrAMINE HCL 25 MG CAPSULE PO (10:21)
[2022-08-16] MEDS: carvediloL 12.5 MG TABLET 37.5 MG PO (10:21)
[2022-08-16] MEDS: Losartan Potassium 25 MG TABLET PO (10:21)
[2022-08-16] MEDS: Folic Acid 1 MG TABLET PO (10:25)
[2022-08-16] MEDS: Acetaminophen 325 MG TABLET 975 MG PO ×2 (10:25→14:30)
[2022-08-16] MEDS: Atorvastatin Calcium 40 MG TABLET PO (10:25)
[2022-08-16] MEDS: Furosemide 20 MG TABLET PO (10:25)
[2022-08-16] MEDS: 0.9 % Sodium Chloride Flush 3 ML SYRINGE IVFLUSH (10:26)
[2022-08-16 10:49] VITALS: BP 116/66; PULSE 64; O2SAT 98
--- NOTE | 2022-08-16 11:07 | HO.PM.IMPN ---
Subjective Subjective Date of Service: 08/16/22 Interval History: the patient was seen and evaluated this morning Laying in bed, feels comfortable as pain is under fair control Had a fall last night with head injury, could not tolerate laying down for CT scan, denies any headache or nausea Report back and chest pain No reported other overnight events. Systemic review: No fever, chills or weakness No chest pain, palpitation No shortness of breath or coughing No abdominal pain, nausea or vomiting No urinary symptoms No reported rash Physical Exam Vital Signs: Vital Signs: Last Vital Signs Temp 97.0 F 08/16/22 03:12 Pulse 64 08/16/22 10:49 Resp 18 08/16/22 03:12 BP 116/66 08/16/22 10:49 Pulse Ox 98 08/16/22 10:49 O2 Del Method 08/16/22 03:12 O2 Flow Rate 2.0 08/15/22 07:43 Oxygen Flow Rate 0 08/09/22 15:19 BMI result Body Mass Index 37.5 Const: Other: General: AO X 3, no acute distress Resp: CTA bilateral CVS: S1,S2,RRR GI: +BS, NT, no distention Skin: No rash Neuro: motor grossly intact Psych: appropriate affect MSK: left splint in place Objective Data Active Medications Acetaminophen (Acetaminophen 325 Mg Tablet) 975 mg PO TID [facility] Last Admin: 08/16/22 10:25 Dose: 975 mg Documented By: TERRANCE Albuterol Sulfate (Albuterol Sulfate 90 Mcg 8 Gm Inhaler) 2 puff INHALE Q4H PRN PRN Reason: sob Atorvastatin Calcium (Atorvastatin Calcium 40 Mg Tablet) 40 mg PO DAILY [facility] Last Admin: 08/16/22 10:25 Dose: 40 mg Documented By: TERRANCE Benzonatate (Benzonatate 100 Mg Capsule) 100 mg PO TID PRN PRN Reason: Cough Carvedilol (Carvedilol 12.5 Mg Tablet) 37.5 mg PO BID [facility]; Protocol Last Admin: 08/16/22 10:21 Dose: 37.5 mg Documented By: TERRANCE Clonidine HCl (Clonidine Hcl 0.2 Mg Tablet) 0.2 mg PO BEDTIME [facility]; Protocol Last Admin: 08/15/22 19:10 Dose: 0.2 mg Documented By: AUNG Comments: JD=[id number] H 77 Diphenhydramine HCl (Diphenhydramine Hcl 25 Mg Capsule) 25 mg PO DAILY [facility] Last Admin: 08/16/22 10:21 Dose: 25 mg Documented By: TERRANCE Enoxaparin Sodium (Enoxaparin Sodium 40 Mg/0.4 Ml Syringe) 40 mg SUBCUT Q24H [facility] Last Admin: 08/15/22 19:10 Dose: 40 mg Documented By: AUNG Fluticasone/Vilanterol (Fluticasone/Vilanterol 100/25 Blst.W.Dev) 1 puff INHALE RDAILY [facility] Last Admin: 08/16/22 08:13 Dose: Not Given Documented By: TAYLER Non-Admin Reason: Med Not Available Folic Acid (Folic Acid 1 Mg Tablet) 1 mg PO DAILY [facility] Last Admin: 08/16/22 10:25 Dose: 1 mg Documented By: TERRANCE Furosemide (Furosemide 40 Mg Tablet) 40 mg PO SUTUTHSA@0900 [facility]; Protocol Last Admin: 08/15/22 07:53 Dose: 40 mg Documented By: KIMBERLEY Furosemide (Furosemide 20 Mg Tablet) 20 mg PO MOWEFR@0900 [facility]; Protocol Last Admin: 08/16/22 10:25 Dose: 20 mg Documented By: TERRANCE Cefazolin Sodium/Dextrose (Ancef) 2 gm in 50 mls @ 100 mls/hr IV POSTOP [facility] Ibuprofen (Ibuprofen 200 Mg Tablet) 200 mg PO TIDWM [facility] Last Admin: 08/16/22 10:21 Dose: 200 mg Documented By: TERRANCE Lactulose (Lactulose 20 Gm/30 Ml Solution) 20 gm PO DAILY [facility] Last Admin: 08/16/22 10:26 Dose: Not Given Documented By: TERRANCE Non-Admin Reason: Patient Refused Losartan Potassium (Losartan Potassium 25 Mg Tablet) 25 mg PO DAILY [facility]; Protocol Last Admin: 08/16/22 10:21 Dose: 25 mg Documented By: TERRANCE Melatonin (Melatonin 3 Mg Tablet) 3 mg PO BEDTIME PRN PRN Reason: Insomnia Last Admin: 08/15/22 23:41 Dose: 3 mg Documented By: AUNG Morphine Sulfate (Morphine Sulfate 2 Mg/Ml Cartridge) 2 mg IVPUSH Q6H PRN; Protocol PRN Reason: Pain, Severe (Pain Scale 7-10) Last Admin: 08/15/22 20:58 Dose: 2 mg Documented By: AUNG Omeprazole (Omeprazole 20 Mg Capsule.Dr) 20 mg PO DAILY@0630 [facility] Last Admin: 08/16/22 05:32 Dose: 20 mg Documented By: AUNG Ondansetron HCl (Ondansetron Hcl 4 Mg/2 Ml Vial) 4 mg IVPUSH Q8H PRN PRN Reason: Nausea and Vomiting Oxycodone HCl (Oxycodone Hcl Immed Release 5 Mg Tablet) 5 mg PO Q4H PRN PRN Reason: Pain, Moderate (Pain Scale 4-6 Last Admin: 08/16/22 05:35 Dose: 5 mg Documented By: AUNG Pharmacy Consult (Consult Rx Perform Med Rec) 1 each MISCELLANE ONCE PRN PRN Reason: Consult order Pharmacy Consult (Consult Rx Perform Med Rec) 1 each MISCELLANE ONCE PRN PRN Reason: Consult order Sodium Chloride (0.9 % Sodium Chloride Flush 3 Ml Syringe) 3 ml IVFLUSH [facility] Last Admin: 08/16/22 10:26 Dose: 3 ml Documented By: TERRANCE Labs CBC & Chem 7: 08/09/22 14:01 08/09/22 14:01 Assessment and Plan (1) Closed left trimalleolar fracture: Status: Acute Plan 72-year-old female with history of COPD, HFpEF, HTN who presents to the emergency department after a fall found to have left trimalleolar fracture status post reduction left trimalleolar fracture s/p reduction and splinting in ED s/p ORIF of ankle 08/13, POD1 PT assessment pain control with oxycodone, Tylenol and Advil morphine for pain as needed hypertension intermittent highs likley from pain continue home losartan, coreg, clonidine pain control monitor blood pressure closely fall Mechanical, slipped and fell Could not tolerate CT scan of the head because of back pain To check CXR and EKG for reported chest and back pain COPD no acute exacerbation continue home medications HLD continue statin HFpEF compensated continue home lasix DT ppx - lovenox Need for inpatient: pending placement for rehab post ankle surger Time Spent With Patient Time: Total time managing care of this patient today ____ minutes. Quality Stroke Does the patient have a stroke diagnosis?: No VTE Prior VTE?: No VTE Risk Level:: Medical - moderate - high VTE Device Contraindication: Treatment Not Indicated VTE Drug Contraindication: N/A - Med Ordered
[2022-08-16 13:26] VITALS: RESP 20
[2022-08-16] MEDS: Morphine Sulfate 2 MG/ML CARTRIDGE IVPUSH (13:26)
[2022-08-16 14:33] LABS: COVID-19 Test Negative (Negative); IDNOW Serial# 16C4AD1C
[2022-08-16 14:41] VITALS: BP 114/68
--- NOTE | 2022-08-16 14:50 | MHC.CM.PN ---
Addendum entered by Layla Barahona 08/16/22 15:45: DP: PT HAS BEEN MEDICALLY CLEARED FOR DC TO [facility] FOR SHORT TERM REHAB. CENTER HAS OBTAINED INSURANCE AUTH AND TRANSPORT BOOKED FOR 5 PM WITH [facility]. TAMIKA AWARE. Original Note: INSURANCE HAS DENIED AUTH FOR ACUTE REHAB PER [facility]. PT IS AGREEABLE TO GO TO [facility] FOR REHAB AND THEY HAVE STARTED AUTH PROCESS. MD NOTIFIED. CM WILL CONTINUE TO FOLLOW.
--- NOTE | 2022-08-16 15:34 | PM.DS ---
DS: Providers Provider Date of Service: 08/16/22 Date of admission: 08/09/22 16:59 Primary care physician: Ana Lilia Esipnoza NP Consults: 08/09/22 17:06 Consult to Orthopedics Routine Consulting Provider: Chino Trimble Reason for consultation: left trimalleolar fx Has provider been notified: No DS: Diagnosis Discharge Diagnosis (1) Closed left trimalleolar fracture: Status: Acute (2) Uncontrolled hypertension: Status: Acute (3) Hx of reduction of closed fracture: Status: Acute DS: Summary Hospital Course Hospital Course: Admission HPI: Chief Complaint: Left foot pain ?this is a 72-year-old female who was brought to the emergency department after sustaining a fall.? She had finished grocery shopping and was returning the grocery cart to the store entrance when she lost her balance and fell, The grocery cart fell on top of her and her left ankle got stuck underneath her. She had immediate onset of pain and was unable to bear weight on her left leg.? she was brought to the emergency department for evaluation where imaging for left ankle revealed a left trimalleolar fracture.? This was reduced in the emergency department and she was placed in a temporary cast.? The orthopedic team was consulted and do not plan for inpatient surgical intervention.? Patient's blood pressure in the emergency department was noted to be in the 200s.? She denies any chest pain, headache, vision changes. ? The decision was made to admit her to the hospital for further management of left ankle pain, uncontrolled blood pressure. Hospital course: the patient was admitted to the hospital for left trimalleolar fracture that was reduced and splinted in the emergency at time of presentation. Evaluated by orthopedic team who did not want to intervene primarily at time of admission But after few days as the inflammation went down decision was made to do ORIF of the ankle on 08/13. The patient tolerated the surgery well and was able to ambulate with physical therapy afterward with a plan for non weight bearing for 6 week after the surgery and to do physical therapy at facility with a plan to follow-up with orthopedic team as outpatient. Blood pressure was noted to be intermittently high during the hospital stay believed to be partially from pain as it became better control as the pain was controlled once she was resumed on her home medications. Time Spent with Patient Time attestation: Total time managing care of this patient today ____ minutes. Discharge coordination time: Greater than 30 minutes Quality: Safe Use of Opioids Does Pt have an Active Cancer Diagnosis on the Problem List?: No Quality: Stroke Does the patient have a stroke diagnosis?: No Physical Exam Vital Signs: Vital Signs: Last Vital Signs Temp 97.0 F 08/16/22 03:12 Pulse 64 08/16/22 10:49 Resp 20 08/16/22 13:26 BP 114/68 08/16/22 14:41 Pulse Ox 98 08/16/22 10:49 O2 Del Method 08/16/22 03:12 O2 Flow Rate 2.0 08/15/22 07:43 Oxygen Flow Rate 0 08/09/22 15:19 BMI result Body Mass Index 37.5 Const: Other: General: AO X 3, no acute distress Resp: CTA bilateral CVS: S1,S2,RRR GI: +BS, NT, no distention Skin: No rash Neuro: motor grossly intact Psych: appropriate affect MSK: left splint in place DS: Data Data Completed and Pending Labs on day of discharge: Laboratory Results - last 24 hr 08/16/22 10:21 COVID-19 ([facility]) Negative COVID-19 Clin Com See Note Imaging Ankle x-ray: Radiologist's impression: ITS Impressions Ankle X-Ray 08/09/22 13:28 IMPRESSION: 1. Laterally displaced Liang type B distal fibular fracture and minimally displaced posterior malleolar fracture. 2. Widening of the medial clear space consistent with deltoid ligament injury and suspected avulsion fracture fragment adjacent to the medial talus. Ankle X-Ray 08/09/22 15:40 IMPRESSION: Reduction of trimalleolar fracture with placement of cast. Guidance Fluoroscopy 08/13/22 11:00 FINDINGS~\^^ Intraoperative fluoroscopy provided for use by Dr. Trimble. Please see operative note for detailed findings. Lumbar Spine X-Ray 08/14/22 21:05 IMPRESSION: Moderate multilevel degenerative changes of the lumbar spine. Chest X-Ray 08/16/22 10:55 IMPRESSION: 1. Mild bibasilar linear atelectasis versus scarring. No acute cardiopulmonary process. 2. Moderate to large hiatal hernia. Discharge Plan Discharge Anticipated Discharge Date/Time: 08/16/22 15:32 Patient Disposition: [facility] Discharge Diagnosis: Left trimalleolar fracture Referrals: Mikayla Haney PA-C [Physician Butter Maker] - 08/20/22 12:30 pm (08/20/22 at 12:30) Ana Lilia Espinoza NP [Primary Care Provider] - 1 Week Discharge Medications: New oxycodone 5 mg tablet 5 mg PO Q6H PRN (Reason: pain (scale score 7-10)) Qty: 10 0RF Rx Instructions: Partial Fill upon patient request. Continued carvedilol 25 mg tablet 37.5 mg PO BID Qty: 90 5RF folic acid 1 mg tablet 1 mg PO DAILY Qty: 30 0RF ferrous sulfate 325 mg (65 mg iron) tablet 325 mg PO DAILY Qty: 30 0RF clonidine HCl 0.1 mg tablet 2 tab PO BEDTIME acetaminophen 500 mg tablet 1,000 mg PO QID PRN (Reason: pain) Qty: 30 0RF lorazepam [Ativan] 0.5 mg tablet 0.5 mg PO BEDTIME PRN (Reason: ANXIETY/SLEEP) furosemide 20 mg Tablet 20 mg PO MOWEFR@0900 furosemide 40 mg Tablet 40 mg PO SUTUTHSA@0900 diphenhydramine HCl [Benadryl] 25 mg Capsule 25 mg PO DAILY albuterol sulfate 90 mcg/actuation Hfa Aerosol Inhaler 2 puff INHALATION Q6H PRN (Reason: Respiratory Distress) fluticasone propion-salmeterol [Wixela Inhub] 250-50 mcg/dose blister with device 1 inh inhalation BID Qty: 60 1RF epinephrine 0.3 mg/0.3 mL auto-injector 0.3 mg IM Q20M PRN (Reason: anaphylaxis) Qty: 2 0RF Rx Instructions: for 2 doses pantoprazole 40 mg tablet,delayed release (DR/EC) 40 mg PO DAILY atorvastatin 40 mg tablet 40 mg PO DAILY losartan 25 mg tablet 25 mg PO DAILY Discharge Orders: Discharge Order (Routine); Ordered 08/16/22 Ordered By: Mery Brewer Diet: Regular diet Activity on Discharge: Use Splints or Immobilizers Stand Alone Forms: Patient Portal Discharge page Activity Restrictions/Additional Instructions: Please call to follow up for your ankle Care Plan Goals: Read below Health Concerns: Read below Plan of Treatment: NWB x 6 weeks operative leg Keep splint clean, dry and intact Elevate leg above the level of the heart on 3 pillows Any questions or concerns please call the office [facility] Follow up with Orthopedics on: 08/20/22 12:30 [facility] [place] [facility] Mikayla Haney PA-C Assessment: to follow-up with orthopedic team as outpatient Monitor blood pressures and report 1 week readings to PCP Patient Instructions: Ankle Fracture (ED)
[2022-08-16 15:38] VITALS: BP 128/68; PULSE 77; RESP 18; TEMP 37; O2SAT 98
[2022-08-16] MEDS: Albuterol Sulfate 90 MCG 8 GM INHALER 2 PUFF INHALE (17:31)
== END 2022-08-16 17:10 | disposition skilled nursing facility (03) | DRG 313 ==
LOC: HO.ED 15:49 → HO.EDOVER 17:06 → HO.S3 18:05
PROVIDERS: Orthopaedic Surgery; Physician Assistant Medical; Admitting Provider Hospitalist; Emergency Provider Student in an Organized Health Care Education/Training Program; PCP Nurse Practitioner Family; Visit Provider Student in an Organized Health Care Education/Training Program
PROC: 0QSH04Z Reposition Left Tibia with Internal Fixation Device, Open Approach (ICD-10-PCS; principal; 2022-08-13 09:30)
DX: S82.852A Displaced trimalleolar fracture of left lower leg, initial encounter for closed fracture (principal); I13.0 Hypertensive heart and chronic kidney disease with heart failure and stage 1 through stage 4 chronic kidney disease, or unspecified chronic kidney disease; J44.9 Chronic obstructive pulmonary disease, unspecified; I50.32 Chronic diastolic (congestive) heart failure; W01.198A Fall on same level from slipping, tripping and stumbling with subsequent striking against other object, initial encounter; E78.5 Hyperlipidemia, unspecified; N18.31 Chronic kidney disease, stage 3a; L40.9 Psoriasis, unspecified; Z20.822 Contact with and (suspected) exposure to COVID-19; Z87.891 Personal history of nicotine dependence; Z88.0 Allergy status to penicillin; Z79.51 Long term (current) use of inhaled steroids; Z79.899 Other long term (current) drug therapy
CPT/HCPCS: 36415; 71045; 72100; 73610; 80053; 85025; 87635; 93005; 94640; 96374; 96375; 97116; 97161; 97166; 97530; 99285; C1713; J0131; J0690; J1170; J1650; J2270; J2405; J2795; J3010

== ENCOUNTER 2022-08-17 02:51 | Emergency (ER) | payer BC, SELFPAY ==
[2022-08-17 03:04] VITALS: BP 178/71; PULSE 75; RESP 18; TEMP 36.5; O2SAT 100; BMI 37.5
--- NOTE | 2022-08-17 03:30 | ED.GENADULT ---
HPI - General Adult General Chief complaint: General Medical Stated complaint: Needs Pain Meds Time Seen by Provider: 08/17/22 03:30 Source: patient Mode of arrival: EMS Limitations: no limitations History of Present Illness HPI narrative: Patient is status post left trimalleolar fracture or if on 08/13 just discharged to rehab yesterday came back as rehab do not have any pain medication to give to the patient no other active complaints after arrival patient does not want to go to rehab again wants to go home but want to be sure can be managed at home Related Data Home Medications Medication Instructions Recorded Confirmed pantoprazole 40 mg tablet,delayed 40 mg PO DAILY 11/17/20 08/09/22 release atorvastatin 40 mg tablet 40 mg PO DAILY 03/12/21 08/09/22 clonidine HCl 0.1 mg tablet 2 tab PO BEDTIME 05/08/22 08/09/22 losartan 25 mg tablet 25 mg PO DAILY 07/12/22 08/09/22 albuterol sulfate 90 mcg/actuation 2 puff inhalation Q6H PRN 08/09/22 08/09/22 aerosol inhaler Respiratory Distress diphenhydramine HCl 25 mg capsule 25 mg PO DAILY 08/09/22 08/09/22 (Benadryl) furosemide 20 mg tablet 20 mg PO MOWEFR@0900 08/09/22 08/09/22 furosemide 40 mg tablet 40 mg PO SUTUTHSA@0900 08/09/22 08/09/22 lorazepam 0.5 mg tablet (Ativan) 0.5 mg PO BEDTIME PRN ANXIETY/SLEEP 08/09/22 08/09/22 Previous Rx's Medication Instructions Recorded epinephrine 0.3 mg/0.3 mL 0.3 mg (0.3 mL) IM Q20M PRN 02/23/21 injection, auto-injector anaphylaxis #2 ea fluticasone 250 mcg-salmeterol 50 1 inh inhalation BID #60 ea 02/23/21 mcg/dose blistr powdr for inhalation (Wixela Inhub) ferrous sulfate 325 mg (65 mg 325 mg PO DAILY #30 tabs 11/06/21 iron) tablet folic acid 1 mg tablet 1 mg PO DAILY #30 tabs 11/06/21 acetaminophen 500 mg tablet 1,000 mg PO QID PRN pain #30 tabs 07/03/22 carvedilol 25 mg tablet 37.5 mg PO BID #90 tabs 07/11/22 oxycodone 5 mg tablet 5 mg PO Q6H PRN pain (scale score 08/12/22 7-10) #10 tabs oxycodone 5 mg tablet 5 mg PO Q6H PRN pain #30 tabs 08/17/22 Allergies Allergy/AdvReac Type Severity Reaction Status Date / Time shrimp Allergy Severe Anaphylaxis Verified 07/22/22 15:36 Penicillins Allergy Unknown UNKNOWN Verified 07/22/22 15:36 levofloxacin [From Levaquin] Allergy Hypertensio Verified 08/13/22 08:57 n paroxetine [From Paxil] Allergy Unknown Verified 08/13/22 08:57 prochlorperazine Allergy Unknown Verified 08/13/22 08:57 [From Compazine] tripoly phosphate Allergy Anaphylaxis Uncoded 08/13/22 08:57 Review of Systems Review of Systems: Yes all other systems are reviewed and are negative PMFSH Past Medical History Medical History (HFpEF) heart failure with preserved ejection fraction Acute CHF Arthritis Asthma Chronic kidney disease (CKD) stage G3a/A1, moderately decreased glomerular filtration rate (GFR) between 45-59 mL/min/1.73 square meter and albuminuria creatinine ratio less than 30 mg/g COPD (chronic obstructive pulmonary disease) Diverticulosis Essential hypertension GERD (gastroesophageal reflux disease) Gout Hepatic steatosis HTN (hypertension) Hypercholesteremia Inguinal hernia Other and unspecified hyperlipidemia Sliding hiatal hernia Surgical History History of total left knee replacement Hx of rotator cuff surgery Hx of tonsillectomy Family History Family History Father CHF (congestive heart failure) Mother CHF (congestive heart failure) Social History Social History Household Members: Family Household Members Other:: mom, 91 y.o. 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 Oriented X3. No acute distress. Eyes: PERRLA, No Nystagmus ENT: Pharynx normal. Oral Mucosa moist Neck: Normal inspection. Neck supple. CVS: Normal heart rate and rhythm. Pulses normal. Respiratory: No respiratory distress. Equal air entry bilateral, no wheezing/rales/rhonchi Abdomen: Soft and nontender. Bowel sounds are present, no mass palpable, no CVA tenderness Skin: Skin warm and dry. Normal skin color. Normal skin turgor. Extremities: No lower extremity edema. No calf tenderness postop changes left ankle Neuro: Oriented X 3. No motor deficit. Medications Administered Discontinued Medications Generic Name Dose Route Start Last Admin Trade Name Freq PRN Reason Stop Dose Admin Oxycodone HCl 10 mg 08/17/22 03:44 08/17/22 04:11 Oxycodone Hcl Immed Release 5 Mg Tablet PO 08/17/22 03:45 10 mg ONCE ONE Administration Medical Decision Making Medical Decision Making [facility] Narrative: Patient unhappy with care and placement in rehab would like to go home but want to be sure that she can have rehab/physical therapy at home will consult case management. Lab Data [facility] Lab Attestation statement: I reviewed the patient's lab results. Labs: Lab Results 08/17/22 Range/Units 05:28 COVID-19 ([facility]) Negative (Negative) COVID-19 Clin Com See Note Discharge Plan Discharge Clinical Impression: Closed left trimalleolar fracture Patient Disposition: Xfer [facility] Instructions: Closed Reduction Internal Fixation of Leg Fracture in Adults (DC) Additional Instructions: Continue the management as advised by Orthopedics, pain medication as prescribed Prescriptions: New oxycodone 5 mg tablet 5 mg PO Q6H PRN (Reason: pain) Qty: 30 0RF Rx Instructions: Partial Fill upon patient request. No Action carvedilol 25 mg tablet 37.5 mg PO BID Qty: 90 5RF folic acid 1 mg tablet 1 mg PO DAILY Qty: 30 0RF ferrous sulfate 325 mg (65 mg iron) tablet 325 mg PO DAILY Qty: 30 0RF clonidine HCl 0.1 mg tablet 2 tab PO BEDTIME acetaminophen 500 mg tablet 1,000 mg PO QID PRN (Reason: pain) Qty: 30 0RF lorazepam [Ativan] 0.5 mg tablet 0.5 mg PO BEDTIME PRN (Reason: ANXIETY/SLEEP) furosemide 20 mg Tablet 20 mg PO MOWEFR@0900 furosemide 40 mg Tablet 40 mg PO SUTUTHSA@0900 diphenhydramine HCl [Benadryl] 25 mg Capsule 25 mg PO DAILY albuterol sulfate 90 mcg/actuation Hfa Aerosol Inhaler 2 puff INHALATION Q6H PRN (Reason: Respiratory Distress) oxycodone 5 mg tablet 5 mg PO Q6H PRN (Reason: pain (scale score 7-10)) Qty: 10 0RF Rx Instructions: Partial Fill upon patient request. fluticasone propion-salmeterol [Wixela Inhub] 250-50 mcg/dose blister with device 1 inh inhalation BID Qty: 60 1RF epinephrine 0.3 mg/0.3 mL auto-injector 0.3 mg IM Q20M PRN (Reason: anaphylaxis) Qty: 2 0RF Rx Instructions: for 2 doses pantoprazole 40 mg tablet,delayed release (DR/EC) 40 mg PO DAILY atorvastatin 40 mg tablet 40 mg PO DAILY losartan 25 mg tablet 25 mg PO DAILY
--- NOTE | 2022-08-17 03:42 | PC.NURSE ---
This blog writer called [facility] and verified the pharmacy information. Their preferred pharmacy is [facility]. MD kincaid.
[2022-08-17 05:18] VITALS: BP 179/81; PULSE 80; RESP 14; TEMP 36.5; O2SAT 99
[2022-08-17 05:49] LABS: COVID-19 Test Negative (Negative); IDNOW Serial# 16C4AD1C
--- NOTE | 2022-08-17 08:44 | PC.NURSE ---
Pt ambulating with walker, stating she cannot stay in bed. Medicated per the MAR. Pt complaining 10 out of 10 ankle pain. States that she wants to go home, awaiting case mgmt
--- NOTE | 2022-08-17 09:19 | PC.NURSE ---
Pt sister Shaniqua [phone]
--- NOTE | 2022-08-17 10:16 | MHC.CM.ED ---
CASE MANAGEMENT MET WITH PATIENT PER REQUEST OF PATIENT AND SISTER PATIENT IS HAVING DIFFICULTY RESPONDING TO THIS BRICK PAVER AND IS FALLING ASLEEP CASE MANAGEMENT ATTEMPTED TO THEN MEET WITH SISTER, WHO LEFT THE DEPARTMENT. T/W IS AWARE THAT SISTER HAD ALREADY SPOKEN WITH A MEMBER OF CM TEAM FOR APPROXIMATELY 25 MINUTES TODAY TO GIVE CM UPDATES PATIENT AND SISTER DO NOT WANT A RETURN TO [facility]
--- NOTE | 2022-08-17 11:04 | PHA.MEDREC ---
Pharmacy Consult ? Medication Reconciliation Pharmacy has completed the medication reconciliation.
--- NOTE | 2022-08-17 11:08 | MHC.CM.PN ---
NO PT EVAL IN OF THIS NOTE CASE MANAGEMENT TO SPEAK WITH PATIENT ABOUT POSSIBLE SNF PLACEMENT AND HER PREFERENCES ONCE SHE IS MORE ALERT
--- NOTE | 2022-08-17 11:43 | MHC.CM.PN ---
PATIENT REPORTS THAT SHE DOES NOT WANT ANY REHAB PLACEMENT REFERRALS. SHE PREFERS TO DC HOME AND IS AGREEABLE TO [facility] REFERRAL, NOW PLACED. WHEN ASKED HOW SHE WILL GET DOWN THE STAIRS IF NEEDED, SHE STATES THAT SHE WILL SCOOT DOWN CM AWAITING [facility] RESPONSE SHE WILL BLS NEED TRANSPORT HOME
[2022-08-17 11:55] VITALS: BP 179/81; PULSE 80; O2SAT 99
--- NOTE | 2022-08-17 12:04 | MHC.CM.ED ---
OF THIS NOTE, NO [id number] FROM [facility]. REFERRAL UPDATED TO INCLUDE [facility] AND [facility]
[2022-08-17 12:41] VITALS: BP 151/73; PULSE 80; RESP 16; TEMP 37; O2SAT 100
--- NOTE | 2022-08-17 13:23 | MHC.CM.PN ---
JAQUI A WILL NEED TO VERIFY PCP AND DETERMINE IF PCP WILL SIGN HOME CARE ORDERS. ACCORDING TO CONVERSATION WITH Jaime García, PATIENT IS NOW CONSIDERING REHAB. REFERRALS TO BE MADE TO CONTRACTED FACILITIES AND PATIENT CAN DETERMINE WHICH FACILITY SHE WISHES TO DC TO.
--- NOTE | 2022-08-17 13:26 | PC.NURSE ---
Pt requesting to speak with case mgmt to discuss potential of short term rehab at this time. Pt linens changed, call huang within reach.
--- NOTE | 2022-08-17 13:29 | MHC.CM.ED ---
THIS HEAVY CLEANER NOTIFIED DELROY DENISE THAT PATIENT IS NOW OPEN TO REHAB PLACEMENT. T/W INFORMED COVERING GEODETIC TECHNICIAN LOOK FOR THEIR RESPONSE
--- NOTE | 2022-08-17 15:30 | PC.NURSE ---
Family requesting to speak with case management with concerns of facility placement.
--- NOTE | 2022-08-17 15:42 | MHC.CM.PN ---
pt to be dcd at 6 to [facility] spoke with sister who aware of dc alma
--- NOTE | 2022-08-17 19:00 | PC.NURSE ---
This proposal manager writer assumed care of this PT at 1900.
--- NOTE | 2022-08-17 19:00 | PC.NURSE ---
Wound dressed and changed, minimal drainage noted. Wound appears to be healing well, well approximated sutures in place.
[2022-08-17 19:58] VITALS: BP 141/62; PULSE 72; RESP 18; TEMP 36.8; O2SAT 98
--- NOTE | 2022-08-17 20:22 | PC.NURSE ---
PT requested dressing change to left ankle. Dressing changed and wrapped.
--- NOTE | 2022-08-17 20:45 | MHC.EDTECH ---
At 2032 spoke with Cassie ludwig [place] to get an update on patients transport to [facility], she stated that there is no truck availability at this time,she did try to pass with no availability. She stated she will try to get patient out tonight if unable to it will have to wait until the AM.Rn and votator machine operator aware.
[2022-08-17 21:49] VITALS: BP 156/70; PULSE 70; RESP 18; O2SAT 100
--- NOTE | 2022-08-18 01:48 | PC.NURSE ---
PT ambulated to BR with walker.
[2022-08-18 01:49] VITALS: BP 124/52; PULSE 72; RESP 16; TEMP 36.3; O2SAT 96
--- NOTE | 2022-08-18 03:07 | PC.NURSE ---
Addendum entered by Dahiana Tam 08/18/22 03:20: Meds given as documented. Original Note: PT awake, report 10/10 pain to left ankle. Ambulated to BR with walker.
--- NOTE | 2022-08-18 06:12 | PC.NURSE ---
Nurse to nurse report given to post acute unit at [facility] in [place]. trust accounts supervisor time 8-8:30 am. PT aware of plan.
[2022-08-18 07:56] VITALS: BP 132/58; PULSE 75; RESP 14; TEMP 36.3; O2SAT 95
--- NOTE | 2022-08-18 09:05 | PC.NURSE ---
suture sight clean and intact, scant drainage noted on pillow cases. pts dressing change, pt tolerated well. currently awaiting transport to [facility]
== END 2022-08-18 10:00 | disposition skilled nursing facility (03) ==
PROVIDERS: Emergency Provider Internal Medicine; PCP Nurse Practitioner Family
DX: S82.852D Displaced trimalleolar fracture of left lower leg, subsequent encounter for closed fracture with routine healing (principal); X58.XXXD Exposure to other specified factors, subsequent encounter; G89.18 Other acute postprocedural pain
CPT/HCPCS: 87635; 97162; 99284; 99285

== ENCOUNTER 2022-08-19 12:29 | Emergency (ER) | payer BC, SELFPAY ==
[2022-08-19 12:43] VITALS: BP 140/62; BP 141/68; PULSE 67; PULSE 72; RESP 16; TEMP 36.6; O2SAT 97; O2SAT 99; BMI 38.4
[2022-08-19 12:49] VITALS: BP 141/68; PULSE 75; RESP 16; TEMP 36.6; O2SAT 97
--- NOTE | 2022-08-19 12:52 | PC.NURSE ---
pt. alert and oriented is post ankle surgery on 08/13. she complains of increased unmanaged sharp pain of 10/10.
--- NOTE | 2022-08-19 12:59 | ED_ITS ---
HPI - Extremity Injury (Lower) General Chief Complaint: Extremity Injury, Lower Stated Complaint: LEFT ANKLE PAIN Time Seen by Provider: 08/19/22 12:37 Source: patient Mode of arrival: EMS Limitations: no limitations History of Present Illness HPI Narrative: Patient is a 9-year-old female who presents emergency department via EMS for evaluation of persistent uncontrolled pain to left ankle. She states that she r ecently had surgery to the left ankle due to fracture. She reports her pain being poorly managed, she is currently taking oxycodone every 6 hours, however by the 4th hour she can feel significant pain returning. By the time 06:00 hours arrive she is in excruciating pain. Additionally she states that the nursing staff had reported increased drainage from the incision site therefore she was brought to emergency department. She is currently nonweightbearing to that extremity. She denies fevers, chills, increased swelling, numbness or tingling or cold sensation to the extremity/foot. Related Data Home Medications Medication Instructions Recorded Confirmed pantoprazole 40 mg tablet,delayed 40 mg PO DAILY 11/17/20 08/17/22 release atorvastatin 40 mg tablet 40 mg PO DAILY 03/12/21 08/17/22 clonidine HCl 0.1 mg tablet 2 tab PO BEDTIME 05/08/22 08/17/22 losartan 25 mg tablet 25 mg PO DAILY 07/12/22 08/17/22 albuterol sulfate 90 mcg/actuation 2 puff inhalation Q6H PRN 08/09/22 08/17/22 aerosol inhaler Respiratory Distress diphenhydramine HCl 25 mg capsule 25 mg PO DAILY 08/09/22 08/17/22 (Benadryl) furosemide 20 mg tablet 20 mg PO MOWEFR@0900 08/09/22 08/17/22 furosemide 40 mg tablet 40 mg PO SUTUTHSA@0900 08/09/22 08/17/22 lorazepam 0.5 mg tablet (Ativan) 0.5 mg PO BEDTIME PRN ANXIETY/SLEEP 08/09/22 08/17/22 Previous Rx's Medication Instructions Recorded epinephrine 0.3 mg/0.3 mL 0.3 mg (0.3 mL) IM Q20M PRN 02/23/21 injection, auto-injector anaphylaxis #2 ea fluticasone 250 mcg-salmeterol 50 1 inh inhalation BID #60 ea 02/23/21 mcg/dose blistr powdr for inhalation (Wixela Inhub) ferrous sulfate 325 mg (65 mg 325 mg PO DAILY #30 tabs 11/06/21 iron) tablet folic acid 1 mg tablet 1 mg PO DAILY #30 tabs 11/06/21 acetaminophen 500 mg tablet 1,000 mg PO QID PRN pain #30 tabs 07/03/22 carvedilol 25 mg tablet 37.5 mg PO BID #90 tabs 07/11/22 oxycodone 5 mg tablet 5 mg PO Q6H PRN pain (scale score 08/12/22 7-10) #10 tabs oxycodone 5 mg tablet 5 mg PO Q6H PRN pain #30 tabs 08/17/22 oxycodone 5 mg tablet 5 mg PO Q6H PRN pain #30 tabs 08/17/22 oxycodone 5 mg tablet 5 mg PO Q4H PRN pain #10 tabs 08/19/22 Allergies Allergy/AdvReac Type Severity Reaction Status Date / Time shrimp Allergy Severe Anaphylaxis Verified 07/22/22 15:36 Penicillins Allergy Unknown UNKNOWN Verified 07/22/22 15:36 levofloxacin [From Levaquin] Allergy Hypertensio Verified 08/13/22 08:57 n paroxetine [From Paxil] Allergy Unknown Verified 08/13/22 08:57 prochlorperazine Allergy Unknown Verified 08/13/22 08:57 [From Compazine] tripoly phosphate Allergy Anaphylaxis Uncoded 08/13/22 08:57 Review of Systems Review of Systems: Constitutional: No weight loss, fever, chills, weakness or fatigue. Skin: No rash or itching. Cardiovascular: No chest pain, chest pressure or chest discomfort. No palpitations or pedal edema. Respiratory: No shortness of breath, cough or sputum production. Gastrointestinal: No anorexia, nausea, vomiting or diarrhea. No abdominal pain or blood in stool. Genitourinary: No burning micturition. No urinary frequency or incontinence. Musculoskeletal: Positive left ankle pain Psychiatric: No depression or anxiety. Yes all other systems are reviewed and are negative [facility] Past Medical History Attestation statement: The following information was validated with the patient. Source: old records reviewed Medical History (HFpEF) heart failure with preserved ejection fraction Acute CHF Arthritis Asthma Chronic kidney disease (CKD) stage G3a/A1, moderately decreased glomerular filtration rate (GFR) between 45-59 mL/min/1.73 square meter and albuminuria creatinine ratio less than 30 mg/g COPD (chronic obstructive pulmonary disease) Diverticulosis Essential hypertension GERD (gastroesophageal reflux disease) Gout Hepatic steatosis HTN (hypertension) Hypercholesteremia Inguinal hernia Other and unspecified hyperlipidemia Sliding hiatal hernia Surgical History History of total left knee replacement Hx of rotator cuff surgery Hx of tonsillectomy Family History Family History Father CHF (congestive heart failure) Mother CHF (congestive heart failure) Social History Social History Household Members: Family Household Members Other:: mom, 91 y.o. 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 No acute distress.?Normal affect. Eyes: Pupils equal, round and reactive to light.? ENT: Pharynx normal.?? Neck: Normal inspection.? Neck supple.?? CVS: Heart sounds normal. Normal heart rate and rhythm.? Pulses normal.?? Respiratory: No respiratory distress.? Lung sounds clear to auscultation bilaterally?? Abdomen: Soft and non-tender. Normoactive bowel sounds. ? Skin: Skin warm and dry.? Normal skin color.? Extremities: Localized swelling to left lower extremity, 1+ DP/PT pulses present, bruising, no significant erythema. No purulent drainage from the medial or lateral malleolus surgical incisions. [place] intact. Neuro: Moves all extremities spontaneously. Sensation intact bilaterally. Medications Administered Discontinued Medications Generic Name Dose Route Start Last Admin Trade Name Beth PRN Reason Stop Dose Admin Acetaminophen 650 mg 08/19/22 13:05 08/19/22 13:15 Acetaminophen 325 Mg Tablet PO 08/19/22 13:06 650 mg ONCE ONE Administration Oxycodone HCl 5 mg 08/19/22 13:05 08/19/22 13:15 Oxycodone Hcl Immed Release 5 Mg Tablet PO 08/19/22 13:06 5 mg ONCE ONE Administration Medical Decision Making Medical Decision Making [facility] Narrative: Patient is a 72-year-old female with past medical history of is heart failure with preserved EF, arthritis, asthma, CKD, COPD, hypertension, GERD, gout, hepatic steatosis, hypertension, hypercholesterolemia patient is status post left trimalleolar fracture ORIF on 08/13/2022, she was [facility]. She ultimately return to emergency department 08/17/2022 as she states that there is no pain medication provided to her at that facility, prescription for pain medication was provided and she was discharged from the emergency department to a new [facility] facility;[place]. Currently her pain is not adequately managed by her report. Oxycodone is currently prescribed every 6 hours, she has not been evaluated by a physician at the facility due to the holiday weekend. Upon physical examination the incision sites appear without sign of infection, no surrounding erythema, warmth, purulent drainage. Additionally she is afebrile without tachycardia. Extremity is neurovascularly intact distally. No evidence of compartment syndrome. She has an outpatient follow-up visit in Orthopedics office tomorrow 08/20/2022. Discussed plan of care with patient, will discharge her back to facility with new prescription for oxycodone every 4 hours as needed for pain in addition to Tylenol. Patient verbalizes understanding of this. She is agreeable with plan of care. Stable for discharge back to facility. Lab Data [facility] Lab Attestation statement: I reviewed the patient's lab results. Result Diagrams: 08/19/22 14:09 08/19/22 14:09 Labs: Lab Results 08/19/22 08/19/22 Range/Units 14:09 14:09 WBC 10.3 (4.8-10.8) X10*3/uL RBC 2.73 L (4.20-5.50) X10*6/uL Hgb 9.3 L (12.0-16.0) g/dl Hct 27.7 L (37.0-47.0) % MCV 101.5 H (80.0-98.0) fL MCH 34.1 H (27.0-33.0) pg MCHC 33.6 (31.0-35.0) g/dl RDW 12.8 (11.0-16.0) % Plt Count 327 (160-400) X10*3/uL MPV 9.3 L (9.4-12.3) fL Immature Gran % (Auto) 0.3 (0.0-0.4) % Neut % (Auto) 71.8 (45-73) % Lymph % (Auto) 12.9 L (20-40) % [place] % (Auto) 14.5 H (2-11) % Eos % (Auto) 0.3 (0-4) % Baso % (Auto) 0.2 (0-2) % Lymph # (Auto) 1.3 (1.2-4.9) X10*3/uL [place] # (Auto) 1.5 H (0.1-1.2) X10*3/uL Eos # (Auto) 0.0 (0.0-0.4) X10*3/uL Baso # (Auto) 0.0 (0.0-0.2) X10*3/uL Abs Immat Gran (auto) 0.03 (0.00-0.03) X10*3/uL Absolute Neuts (auto) 7.4 (2.0-8.3) x10*3/uL Absolute Nucleated RBC 0.000 (0.0-0.012) X10*3/uL Nucleated RBC % (auto) 0.0 (0.0-0.2) /100WBC Sodium 136 (135-145) mmol/L Potassium 3.5 (3.3-5.1) mmol/L Chloride 99 (96-108) mmol/L Carbon Dioxide 28 (22-29) mmol/L Anion Gap 13 (12-20) BUN 9 (9-16) mg/dL Creatinine 0.74 (0.5-1.4) mg/dL Estim Creat Clear Calc 82.0 Estimated GFR > 60 Random Glucose 107 (60-115) mg/dL Calcium 8.9 (8.4-10.2) mg/dL Discharge Plan Discharge Clinical Impression: Closed left trimalleolar fracture Patient Disposition: Xfer [facility] Additional Instructions: Blood work today is overall normal. She does have anemia which appears consistent with baseline during hospital admission. There is no evidence infection at this time, white blood cell count is normal, there is no fever, tachycardia, no pus-like drainage, and surgical incisions both appear well without signs of localized infection. Regarding pain, oxycodone has been changed to 5 mg every 4 hours as needed for pain. This may be used in conjunction with Tylenol 650 mg p.o. every 4-6 hours. Patient is to follow-up with orthopedics as scheduled. Feel free to return to emergency department with any new or worsening symptoms or concerns. Prescriptions: New oxycodone 5 mg tablet 5 mg PO Q4H PRN (Reason: pain) Qty: 10 0RF Rx Instructions: Partial Fill upon patient request. No Action carvedilol 25 mg tablet 37.5 mg PO BID Qty: 90 5RF folic acid 1 mg tablet 1 mg PO DAILY Qty: 30 0RF ferrous sulfate 325 mg (65 mg iron) tablet 325 mg PO DAILY Qty: 30 0RF oxycodone 5 mg tablet 5 mg PO Q6H PRN (Reason: pain) Qty: 30 0RF Rx Instructions: Partial Fill upon patient request. oxycodone 5 mg tablet 5 mg PO Q6H PRN (Reason: pain) Qty: 30 0RF Rx Instructions: Partial Fill upon patient request. clonidine HCl 0.1 mg tablet 2 tab PO BEDTIME acetaminophen 500 mg tablet 1,000 mg PO QID PRN (Reason: pain) Qty: 30 0RF lorazepam [Ativan] 0.5 mg tablet 0.5 mg PO BEDTIME PRN (Reason: ANXIETY/SLEEP) furosemide 20 mg Tablet 20 mg PO MOWEFR@0900 furosemide 40 mg Tablet 40 mg PO SUTUTHSA@0900 diphenhydramine HCl [Benadryl] 25 mg Capsule 25 mg PO DAILY albuterol sulfate 90 mcg/actuation Hfa Aerosol Inhaler 2 puff INHALATION Q6H PRN (Reason: Respiratory Distress) oxycodone 5 mg tablet 5 mg PO Q6H PRN (Reason: pain (scale score 7-10)) Qty: 10 0RF Rx Instructions: Partial Fill upon patient request. fluticasone propion-salmeterol [Wixela Inhub] 250-50 mcg/dose blister with de vice 1 inh inhalation BID Qty: 60 1RF epinephrine 0.3 mg/0.3 mL auto-injector 0.3 mg IM Q20M PRN (Reason: anaphylaxis) Qty: 2 0RF Rx Instructions: for 2 doses pantoprazole 40 mg tablet,delayed release (DR/EC) 40 mg PO DAILY atorvastatin 40 mg tablet 40 mg PO DAILY losartan 25 mg tablet 25 mg PO DAILY Referrals: Brooks Mendoza PA-C [[facility]] - Interventions: ED Discharge Assessment Last Done: 08/19/22 17:15 Discharge Date/Time: 08/19/22 17:17
[2022-08-19] MEDS: Acetaminophen 325 MG TABLET 650 MG PO (13:15)
[2022-08-19] MEDS: oxyCODONE HCl Immed Release 5 MG TABLET PO (13:15)
--- NOTE | 2022-08-19 13:18 | PC.NURSE ---
Pt medicated as charted for 10/10 left ankle pain
[2022-08-19 14:13] LABS: MANUAL DIFF FLAG NO
[2022-08-19 14:15] LABS: Basophils Percent Auto 0.2 % (0-2); Eosinophils Percent Auto 0.3 % (0-4); Hematocrit 27.7 % (37.0-47.0); Hemoglobin 9.3 g/dl (12.0-16.0); Imm Gran Abs Auto 0.03 X10*3/uL (0.00-0.03); Imm Gran Pct Auto 0.3 % (0.0-0.4); Lymphocytes Absolute Auto 1.3 X10*3/uL (1.2-4.9); Lymphocytes Percent Auto 12.9 % (20-40); Mean Corpuscular HGB Conc 33.6 g/dl (31.0-35.0); Mean Corpuscular Hemoglobin 34.1 pg (27.0-33.0); Mean Corpuscular Volume 101.5 fL (80.0-98.0); Mean Platelet Volume 9.3 fL (9.4-12.3); Monocytes Absolute Auto 1.5 X10*3/uL (0.1-1.2); Monocytes Percent Auto 14.5 % (2-11); Neutrophils Absolute Auto 7.4 x10*3/uL (2.0-8.3); Neutrophils Percent Auto 71.8 % (45-73); Platelet Count 327 X10*3/uL (160-400); Red Blood Count 2.73 X10*6/uL (4.20-5.50); Red Cell Distribution Width 12.8 % (11.0-16.0); White Blood Count 10.3 X10*3/uL (4.8-10.8)
[2022-08-19 14:44] LABS: Anion Gap 13 (12-20); Blood Urea Nitrogen 9 mg/dL (9-16); Calcium 8.9 mg/dL (8.4-10.2); Carbon Dioxide 28 mmol/L (22-29); Chloride 99 mmol/L (96-108); Estimated Glomerular Filt Rate > 60; Glucose Random 107 mg/dL (60-115); Potassium 3.5 mmol/L (3.3-5.1); Sodium 136 mmol/L (135-145)
--- NOTE | 2022-08-19 14:47 | PC.NURSE ---
pt. sleeping comfortably. unable to assess pain level.
--- NOTE | 2022-08-19 16:46 | PC.NURSE ---
report to [facility] spoke to Kathy regarding plan of care and sister of pt at bedside
== END 2022-08-19 17:17 | disposition skilled nursing facility (03) ==
PROVIDERS: Nurse Practitioner Family; Emergency Provider Emergency Medicine
DX: M25.572 Pain in left ankle and joints of left foot (principal); S82.852D Displaced trimalleolar fracture of left lower leg, subsequent encounter for closed fracture with routine healing; X58.XXXD Exposure to other specified factors, subsequent encounter
CPT/HCPCS: 36415; 80048; 85025; 99283; 99284

== ENCOUNTER → 2022-08-20 12:29 | Outpatient (BNVA) | payer BC, SELFPAY | PROVIDERS: Visit Provider Physician Assistant | DX: Z13.89 Encounter for screening for other disorder (principal) ==

== ENCOUNTER 2022-08-28 16:38 | Inpatient (IN) | payer BC, SELFPAY ==
[2022-08-28 16:23] VITALS: BP 138/67; PULSE 77; RESP 15; TEMP 36.4; O2SAT 98
[2022-08-28 17:26] VITALS: BMI 36.9
[2022-08-28] MEDS: Lactated Ringers 1,000 ML 100 ML IVCONT (17:27)
[2022-08-28 17:47] LABS: Creatinine Clr Calc Pharmacy 46.3; Estimated Glomerular Filt Rate 41
[2022-08-28] MEDS: oxyCODONE HCl Immed Release 5 MG TABLET 10 MG PO ×2 (17:49→21:03)
[2022-08-28] MEDS: Acetaminophen 325 MG TABLET 650 MG PO (17:50)
[2022-08-28 18:05] LABS: COVID-19 Test Negative (Negative); IDNOW Serial# 16C4AD1C
[2022-08-28] MEDS: vancomycin HCL 1,500 MG in 0.9 % Sodium Chloride 500 ML 333.33 MG IV (18:27)
[2022-08-28 20:00] VITALS: BP 160/60; PULSE 73; RESP 18; TEMP 36.6; O2SAT 100
[2022-08-28] MEDS: carvediloL 12.5 MG TABLET 37.5 MG PO (21:02)
[2022-08-28] MEDS: cloNIDine HCL 0.2 MG TABLET PO (21:02)
[2022-08-28] MEDS: LORazepam 0.5 MG TABLET PO (21:03)
[2022-08-28] MEDS: 0.9 % Sodium Chloride Flush 3 ML SYRINGE IVFLUSH (21:04)
[2022-08-29] VITALS (20 sets, daily range): BP systolic 138–182; BP diastolic 55–83; PULSE 60–75; RESP 12–20; TEMP 36.1–36.6; O2SAT 94–100
[2022-08-29] MEDS: LORazepam 0.5 MG TABLET PO ×2 (03:56→20:02)
[2022-08-29] MEDS: Acetaminophen 325 MG TABLET 650 MG PO ×2 (03:56→09:12)
[2022-08-29] MEDS: Lactated Ringers 1,000 ML 100 ML IVCONT ×2 (03:59→21:46)
[2022-08-29] MEDS: oxyCODONE HCl Immed Release 5 MG TABLET 10 MG PO ×5 (05:21→21:39)
[2022-08-29] MEDS: Omeprazole 20 MG CAPSULE.DR PO (05:21)
[2022-08-29 07:08] LABS: MANUAL DIFF FLAG NO
[2022-08-29 07:16] LABS: Basophils Percent Auto 0.4 % (0-2); Eosinophils Absolute Auto 0.1 X10*3/uL (0.0-0.4); Eosinophils Percent Auto 1.3 % (0-4); Hematocrit 25.3 % (37.0-47.0); Hemoglobin 8.2 g/dl (12.0-16.0); Imm Gran Abs Auto 0.05 X10*3/uL (0.00-0.03); Imm Gran Pct Auto 0.7 % (0.0-0.4); Lymphocytes Absolute Auto 1.2 X10*3/uL (1.2-4.9); Lymphocytes Percent Auto 16.7 % (20-40); Mean Corpuscular HGB Conc 32.4 g/dl (31.0-35.0); Mean Corpuscular Hemoglobin 32.8 pg (27.0-33.0); Mean Corpuscular Volume 101.2 fL (80.0-98.0); Monocytes Absolute Auto 0.8 X10*3/uL (0.1-1.2); Neutrophils Absolute Auto 4.9 x10*3/uL (2.0-8.3); Neutrophils Percent Auto 69.9 % (45-73); Platelet Count 521 X10*3/uL (160-400); Red Cell Distribution Width 13.2 % (11.0-16.0); White Blood Count 7.1 X10*3/uL (4.8-10.8)
[2022-08-29] MEDS: Fluticasone/Vilanterol 100/25 BLST.W.DEV 1 PUFF INHALE (07:39)
[2022-08-29 08:09] LABS: Anion Gap 14 (12-20); Blood Urea Nitrogen 17 mg/dL (9-16); Calcium 8.4 mg/dL (8.4-10.2); Carbon Dioxide 28 mmol/L (22-29); Chloride 102 mmol/L (96-108); Creatinine Clr Calc Pharmacy 54.9; Estimated Glomerular Filt Rate 50; Glucose Fasting 98 mg/dL (60-99); Sodium 140 mmol/L (135-145)
--- NOTE | 2022-08-29 09:02 | HE.PHANOTE ---
SUZANNA WILKINSON IN LIGHT OF IMPROVED RENAL FUNCTION, WILL CHANGE DOSE TO 1500MG Q24H, SUSPECTED AUC 471, TROUGH 13.9 JUMA
[2022-08-29] MEDS: Spironolactone 25 MG TABLET PO (09:12)
[2022-08-29] MEDS: Ferrous Sulfate 324 MG TABLET.DR PO (09:12)
[2022-08-29] MEDS: Losartan Potassium 25 MG TABLET PO (09:12)
[2022-08-29] MEDS: diphenhydrAMINE HCL 25 MG CAPSULE PO (09:12)
[2022-08-29] MEDS: Cyanocobalamin (Vitamin B-12) 1,000 MCG TABLET 1000 MCG PO (09:12)
[2022-08-29] MEDS: Atorvastatin Calcium 40 MG TABLET PO (09:12)
[2022-08-29] MEDS: Folic Acid 1 MG TABLET PO (09:12)
[2022-08-29] MEDS: carvediloL 12.5 MG TABLET 37.5 MG PO ×2 (09:13→20:02)
--- NOTE | 2022-08-29 11:20 | P.CONHOSP_ITS ---
History of Present Illness Data of Consult Service Date: 08/29/22 Primary Care Provider: Ana Lilia Espinoza NP HPI Reason for consult: Medical management Patient at hospital today for surgical procedure of irrigation and debridement of left ankle with placement of vacuum assisted closure device. Recently fallen approximately 2 weeks ago and had surgery for sugared left ankle. Patient seen at PACU for consult for medical management. The patient complains of left ankle pain, rates it a 7/10. Patient has no other complaints at this time. Denies chest pain/pressure, SOB. Denies cough. No headache, fevers, chills, nausea, vomiting. Review of Systems Review of Systems: Left ankle pain step nontender Denies chest pain/pressure No shortness of breath No cough Denies fever/chills, nausea, vomiting, abdominal pain Yes all other systems are reviewed and are negative [facility] Medical History (HFpEF) heart failure with preserved ejection fraction Acute CHF Arthritis Asthma Chronic kidney disease (CKD) stage G3a/A1, moderately decreased glomerular filtration rate (GFR) between 45-59 mL/min/1.73 square meter and albuminuria creatinine ratio less than 30 mg/g COPD (chronic obstructive pulmonary disease) Diverticulosis Essential hypertension GERD (gastroesophageal reflux disease) Gout Hepatic steatosis HTN (hypertension) Hypercholesteremia Inguinal hernia Occult fracture Other and unspecified hyperlipidemia Sliding hiatal hernia Uncontrolled hypertension Family History Father CHF (congestive heart failure) Mother CHF (congestive heart failure) Surgical History History of total left knee replacement Hx of rotator cuff surgery Hx of tonsillectomy Social History Household Members: Family Household Members Other:: mother Housing: House Do you presently have visiting nurse or other home services: No Alcohol intake: current Alcohol intake frequency: does not drink Alcohol type: wine Patient Tobacco Use Status: Former Tobacco user Quit Date: 25 yrs ago Second Hand Smoke Exposure: No Advance Directives Date on File: 12/04/20 service: No Current occupational status: employed 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, 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 Meds Allergies Allergy/AdvReac Type Severity Reaction Status Date / Time shrimp Allergy Severe Anaphylaxis Verified 08/28/22 14:52 Penicillins Allergy Unknown UNKNOWN Verified 08/28/22 14:52 levofloxacin [From Levaquin] Allergy Hypertensio Verified 08/28/22 14:52 n paroxetine [From Paxil] Allergy Unknown Verified 08/28/22 14:52 prochlorperazine Allergy Unknown Verified 08/28/22 14:52 [From Compazine] tripoly phosphate Allergy Anaphylaxis Uncoded 08/28/22 14:52 Active Medications: Current Medications Acetaminophen (Acetaminophen 325 Mg Tablet) 650 mg PO Q6H PRN PRN Reason: Pain, Mild (Pain Scale 1-3) Last Admin: 08/29/22 09:12 Dose: 650 mg Albuterol Sulfate (Albuterol Sulfate 90 Mcg 8 Gm Inhaler) 2 puff INHALE Q6H PRN PRN Reason: Respiratory Distress Atorvastatin Calcium (Atorvastatin Calcium 40 Mg Tablet) 40 mg PO DAILY [facility] Last Admin: 08/29/22 09:12 Dose: 40 mg Carvedilol (Carvedilol 12.5 Mg Tablet) 37.5 mg PO BID [facility]; Protocol Last Admin: 08/29/22 09:13 Dose: 37.5 mg Clonidine HCl (Clonidine Hcl 0.2 Mg Tablet) 0.2 mg PO BEDTIME [facility]; Protocol Last Admin: 08/28/22 21:02 Dose: 0.2 mg Cyanocobalamin (Cyanocobalamin (Vitamin B-12) 1,000 Mcg Tablet) 1,000 mcg PO DAILY [facility] Last Admin: 08/29/22 09:12 Dose: 1,000 mcg Diphenhydramine HCl (Diphenhydramine Hcl 25 Mg Capsule) 25 mg PO DAILY [facility] Last Admin: 08/29/22 09:12 Dose: 25 mg Epinephrine (Epinephrine 1 Mg/Ml Vial) 0.3 mg IM Q20M PRN PRN Reason: anaphylaxis Ferrous Sulfate (Ferrous Sulfate 324 Mg Tablet.Dr) 324 mg PO DAILY [facility] Last Admin: 08/29/22 09:12 Dose: 324 mg Fluticasone/Vilanterol (Fluticasone/Vilanterol 100/25 Blst.W.Dev) 1 puff INHALE RDAILY [facility] Last Admin: 08/29/22 07:39 Dose: 1 puff Folic Acid (Folic Acid 1 Mg Tablet) 1 mg PO DAILY [facility] Last Admin: 08/29/22 09:12 Dose: 1 mg Furosemide (Furosemide 20 Mg Tablet) 20 mg PO MOWEFR@0900 [facility]; Protocol Hydromorphone HCl (Hydromorphone Hcl 0.5 Mg/0.5 Ml Syringe) 0.25 mg IVPUSH Q4H PRN; Protocol PRN Reason: Pain, Severe (Pain Scale 7-10) Lactated Ringer's (Lr) 1,000 mls @ 100 mls/hr IVCONT .Q10H [facility] Last Admin: 08/29/22 11:08 Dose: Not Given Vancomycin HCl 1,500 mg/ (Sodium Chloride) 500 mls @ 333.333 mls/hr IV Q24H [facility] Lorazepam (Lorazepam 0.5 Mg Tablet) 0.5 mg PO DAILY PRN PRN Reason: Anxiety Last Admin: 08/29/22 03:56 Dose: 0.5 mg Lorazepam (Lorazepam 0.5 Mg Tablet) 0.5 mg PO BEDTIME [facility] Last Admin: 08/28/22 21:03 Dose: 0.5 mg Losartan Potassium (Losartan Potassium 25 Mg Tablet) 25 mg PO DAILY [facility]; Protocol Last Admin: 08/29/22 09:12 Dose: 25 mg Omeprazole (Omeprazole 20 Mg Capsule.Dr) 20 mg PO DAILY@0630 [facility] Last Admin: 08/29/22 05:21 Dose: 20 mg Ondansetron HCl (Ondansetron Hcl 4 Mg/2 Ml Vial) 4 mg IVPUSH Q8H PRN PRN Reason: Nausea and Vomiting Oxycodone HCl (Oxycodone Hcl Immed Release 5 Mg Tablet) 10 mg PO Q4H [facility] Last Admin: 08/29/22 09:11 Dose: 10 mg Pharmacy Consult (Consult Rx Vancomycin Dosing) 1 each MISCELLANE DAILY PRN PRN Reason: Consult order Sodium Chloride (0.9 % Sodium Chloride Flush 3 Ml Syringe) 3 ml IVFLUSH QSHIFT [facility] Last Admin: 08/29/22 07:06 Dose: Not Given Spironolactone (Spironolactone 25 Mg Tablet) 25 mg PO DAILY [facility]; Protocol Last Admin: 08/29/22 09:12 Dose: 25 mg Home Medications Medication Instructions Recorded Confirmed Last Taken Type pantoprazole 40 mg tablet,delayed 40 mg PO DAILY 11/17/20 08/28/22 08/09/22 History release atorvastatin 40 mg tablet 40 mg PO DAILY 03/12/21 08/28/22 08/09/22 History clonidine HCl 0.1 mg tablet 2 tab PO BEDTIME 05/08/22 08/28/22 08/08/22 History losartan 25 mg tablet 25 mg PO DAILY 07/12/22 08/28/22 08/09/22 History albuterol sulfate 90 mcg/actuation 2 puff inhalation Q6H PRN 08/09/22 08/28/22 Unknown History aerosol inhaler Respiratory Distress diphenhydramine HCl 25 mg capsule 25 mg PO DAILY 08/09/22 08/28/22 08/09/22 History (Benadryl) furosemide 20 mg tablet 20 mg PO MOWEFR@0900 08/09/22 08/28/22 08/09/22 History lorazepam 0.5 mg tablet (Ativan) 0.5 mg PO BEDTIME PRN ANXIETY/SLEEP 08/09/22 Unknown History cephalexin 500 mg capsule 1 cap PO BID 08/28/22 08/28/22 Unknown History cyanocobalamin (vitamin B-12) 1 tab PO DAILY 08/28/22 08/28/22 Unknown History 1,000 mcg tablet spironolactone 25 mg tablet 1 tab PO DAILY 08/28/22 08/28/22 Unknown History sulfamethoxazole 800 1 tab PO Q12H 08/28/22 08/28/22 Unknown History mg-trimethoprim 160 mg tablet Physical Exam Vital Signs and Narrative: Vital Signs: Last Vital Signs Temp 98 F 08/29/22 07:04 Pulse 66 08/29/22 07:40 Resp 16 08/29/22 07:40 BP 138/65 08/29/22 07:04 Pulse Ox 98 08/29/22 07:04 O2 Del Method 08/29/22 07:04 BMI result Body Mass Index 36.9 General: AOx3, no acute distress Resp: CTA bilaterally CVS: S1, S2, RRR GI: +BS, NT, no distention Skin: No rash Neuro: Motor grossly intact Extremities: Left foot and ankle swelling. Vacuum device in place on left ankle. Psych: Appropriate affect Results Labs CBC and Chem 7: 08/29/22 06:22 08/29/22 06:22 Labs: Laboratory Results - last 24 hr 08/28/22 08/28/2208/29/23 16:58 17:20 06:22 MCV 101.2 H MCH 32.8 MCHC 32.4 RDW 13.2 Plt Count 521 H D MPV 10.0 Immature Gran % (Auto) 0.7 H Neut % (Auto) 69.9 Lymph % (Auto) 16.7 L [place] % (Auto) 11.0 Eos % (Auto) 1.3 Baso % (Auto) 0.4 Lymph # (Auto) 1.2 [place] # (Auto) 0.8 Eos # (Auto) 0.1 Baso # (Auto) 0.0 Abs Immat Gran (auto) 0.05 H Absolute Neuts (auto) 4.9 Absolute Nucleated RBC 0.000 Nucleated RBC % (auto) 0.0 Anion Gap Estim Creat Clear Calc 46.3 Estimated GFR 41 Fasting Glucose Calcium COVID-19 ([facility]) Negative COVID-19 Clin Com See Note 08/29/22 06:22 MCV MCH MCHC RDW Plt Count MPV Immature Gran % (Auto) Neut % (Auto) Lymph % (Auto) [place] % (Auto) Eos % (Auto) Baso % (Auto) Lymph # (Auto) [place] # (Auto) Eos # (Auto) Baso # (Auto) Abs Immat Gran (auto) Absolute Neuts (auto) Absolute Nucleated RBC Nucleated RBC % (auto) Anion Gap 14 Estim Creat Clear Calc 54.9 Estimated GFR 50 Fasting Glucose 98 Calcium 8.4 COVID-19 ([facility]) COVID-19 Clin Com Assessment and Plan (1) COPD (chronic obstructive pulmonary disease): Status: Acute (2) HTN (hypertension): Status: Acute (3) (HFpEF) heart failure with preserved ejection fraction: Status: Acute (4) Surgical wound breakdown: Status: Acute Plan Patient at hospital today for surgical procedure of irrigation and debridement of left ankle with placement of vacuum assisted closure device. Recently fallen approximately 2 weeks ago and had surgery for sugared left ankle. Patient seen at PACU for consult for medical management. Pt with no acute medical concerns at this time outside of pain management. Left ankle debridement Plan as per surgical team Anemia, chronic H&H 8.2/25.3, slightly lower than baseline but consistent with recent surgery Monitor HTN Continue home meds: Losartan, Coreg, clonidine COPD Not in acute exacerbation Continue home inhalers HLD Continue statin HFpEF Not in acute exacerbation Continue furosemide and spironolactone Thank you for allowing me to participate in the care of this patient, signing off at this time. Please contact with any questions or additional concerns. Time Spent With Patient Time: Total time managing care of this patient today ____ minutes.
--- NOTE | 2022-08-29 12:28 | P.CONAN_ITS ---
[facility] Active Problems Active Problems: All Active Problems (Updated 08/28/22 @ 20:02 by Brooks Mendoza PA-C) Surgical wound breakdown (Acute) Wound cellulitis (Acute) Black eye of right side (Acute) Acute sinusitis (Acute) Hypokalemia (Acute) Chest pain (Acute) Sinusitis (Acute) Dental infection (Acute) Postnasal drip (Acute) Lower thoracic back pain (Acute) Allergic rhinitis (Acute) External hordeolum (Acute) Head injury (Acute) Headache (Acute) COPD (chronic obstructive pulmonary disease) (Acute) CHF (congestive heart failure) (Acute) Labile blood pressure (Acute) Gout of left foot (Acute) Hepatic steatosis (Acute) HTN (hypertension) (Acute) (HFpEF) heart failure with preserved ejection fraction (Acute) Past Medical History Medical History (HFpEF) heart failure with preserved ejection fraction Acute CHF Arthritis Asthma Chronic kidney disease (CKD) stage G3a/A1, moderately decreased glomerular filtration rate (GFR) between 45-59 mL/min/1.73 square meter and albuminuria creatinine ratio less than 30 mg/g COPD (chronic obstructive pulmonary disease) Diverticulosis Essential hypertension GERD (gastroesophageal reflux disease) Gout Hepatic steatosis HTN (hypertension) Hypercholesteremia Inguinal hernia Occult fracture Other and unspecified hyperlipidemia Sliding hiatal hernia Uncontrolled hypertension Functional capacity: independent ambulation Patient : No Family History Family History Father CHF (congestive heart failure) Mother CHF (congestive heart failure) Family history of problems with anesthesia: No Surgical History Surgical History History of total left knee replacement Hx of rotator cuff surgery Hx of tonsillectomy History of Problems with Anesthesia: No Social History Social History Household Members: Family Household Members Other:: mother Housing: House Do you presently have visiting nurse or other home services: No Alcohol intake: current Alcohol intake frequency: does not drink Alcohol type: wine Patient Tobacco Use Status: Former Tobacco user Quit Date: 25 yrs ago Second Hand Smoke Exposure: No Use of substances other than those prescribed or required for medical reasons: No Currently Displaying Signs/Symptoms of Drug Intoxication Withdrawal: No Have you been hit, kicked, punched, or otherwise hurt by someone within the past year? If so, by whom?: No Do you feel safe in your current relationship?: No Current Relationship Is there a partner from a previous relationship who is making you feel unsafe now?: No Are you made to feel afraid or neglected: No Are you DNR?: No Advance Directives: Yes Advance Directives Information Provided: No Advance Directives on File: Yes Advance Directives Date on File: 12/04/20 Do you have thoughts of harming others: None Do you have a plan to hurt others: No Plan Recently lost weight without trying: No How much weight loss: Not applicable Eating poorly because of decreased appetite: No Nutrition screen score: 0 Nutrition Risks: No Nutritional Risk Patient : No : No Poor oral hygiene: No service: No Current occupational status: employed 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, 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 Meds Allergies Allergy/AdvReac Type Severity Reaction Status Date / Time shrimp Allergy Severe Anaphylaxis Verified 08/28/22 14:52 Penicillins Allergy Unknown UNKNOWN Verified 08/28/22 14:52 levofloxacin [From Levaquin] Allergy Hypertensio Verified 08/28/22 14:52 n paroxetine [From Paxil] Allergy Unknown Verified 08/28/22 14:52 prochlorperazine Allergy Unknown Verified 08/28/22 14:52 [From Compazine] tripoly phosphate Allergy Anaphylaxis Uncoded 08/28/22 14:52 Active Medications: Current Medications Acetaminophen (Acetaminophen 325 Mg Tablet) 650 mg PO Q6H PRN PRN Reason: Pain, Mild (Pain Scale 1-3) Last Admin: 08/29/22 09:12 Dose: 650 mg Albuterol Sulfate (Albuterol Sulfate 90 Mcg 8 Gm Inhaler) 2 puff INHALE Q6H PRN PRN Reason: Respiratory Distress Atorvastatin Calcium (Atorvastatin Calcium 40 Mg Tablet) 40 mg PO DAILY [facility] Last Admin: 08/29/22 09:12 Dose: 40 mg Carvedilol (Carvedilol 12.5 Mg Tablet) 37.5 mg PO BID [facility]; Protocol Last Admin: 08/29/22 09:13 Dose: 37.5 mg Clonidine HCl (Clonidine Hcl 0.2 Mg Tablet) 0.2 mg PO BEDTIME [facility]; Protocol Last Admin: 08/28/22 21:02 Dose: 0.2 mg Cyanocobalamin (Cyanocobalamin (Vitamin B-12) 1,000 Mcg Tablet) 1,000 mcg PO DAILY [facility] Last Admin: 08/29/22 09:12 Dose: 1,000 mcg Diphenhydramine HCl (Diphenhydramine Hcl 25 Mg Capsule) 25 mg PO DAILY [facility] Last Admin: 08/29/22 09:12 Dose: 25 mg Epinephrine (Epinephrine 1 Mg/Ml Vial) 0.3 mg IM Q20M PRN PRN Reason: anaphylaxis Ferrous Sulfate (Ferrous Sulfate 324 Mg Tablet.) 324 mg PO DAILY [facility] Last Admin: 08/29/22 09:12 Dose: 324 mg Fluticasone/Vilanterol (Fluticasone/Vilanterol 100/25 Blst.W.Dev) 1 puff INHALE RDAILY [facility] Last Admin: 08/29/22 07:39 Dose: 1 puff Folic Acid (Folic Acid 1 Mg Tablet) 1 mg PO DAILY [facility] Last Admin: 08/29/22 09:12 Dose: 1 mg Furosemide (Furosemide 20 Mg Tablet) 20 mg PO MOWEFR@0900 [facility]; Protocol Hydromorphone HCl (Hydromorphone Hcl 0.5 Mg/0.5 Ml Syringe) 0.25 mg IVPUSH Q4H PRN; Protocol PRN Reason: Pain, Severe (Pain Scale 7-10) Lactated Ringer's (Lr) 1,000 mls @ 100 mls/hr IVCONT .Q10H [facility] Last Admin: 08/29/22 11:08 Dose: Not Given Vancomycin HCl 1,500 mg/ (Sodium Chloride) 500 mls @ 333.333 mls/hr IV Q24H [facility] Lorazepam (Lorazepam 0.5 Mg Tablet) 0.5 mg PO DAILY PRN PRN Reason: Anxiety Last Admin: 08/29/22 03:56 Dose: 0.5 mg Lorazepam (Lorazepam 0.5 Mg Tablet) 0.5 mg PO BEDTIME [facility] Last Admin: 08/28/22 21:03 Dose: 0.5 mg Losartan Potassium (Losartan Potassium 25 Mg Tablet) 25 mg PO DAILY [facility]; Protocol Last Admin: 08/29/22 09:12 Dose: 25 mg Omeprazole (Omeprazole 20 Mg Capsule.) 20 mg PO DAILY@0630 [facility] Last Admin: 08/29/22 05:21 Dose: 20 mg Ondansetron HCl (Ondansetron Hcl 4 Mg/2 Ml Vial) 4 mg IVPUSH Q8H PRN PRN Reason: Nausea and Vomiting Oxycodone HCl (Oxycodone Hcl Immed Release 5 Mg Tablet) 10 mg PO Q4H [facility] Last Admin: 08/29/22 09:11 Dose: 10 mg Pharmacy Consult (Consult Rx Vancomycin Dosing) 1 each MISCELLANE DAILY PRN PRN Reason: Consult order Sodium Chloride (0.9 % Sodium Chloride Flush 3 Ml Syringe) 3 ml IVFLUSH QSHIFT [facility] Last Admin: 08/29/22 07:06 Dose: Not Given Spironolactone (Spironolactone 25 Mg Tablet) 25 mg PO DAILY [facility]; Protocol Last Admin: 08/29/22 09:12 Dose: 25 mg Home Medications Medication Instructions Recorded Confirmed Last Taken Type pantoprazole 40 mg tablet,delayed 40 mg PO DAILY 11/17/20 08/28/22 08/09/22 History release atorvastatin 40 mg tablet 40 mg PO DAILY 03/12/21 08/28/22 08/09/22 History clonidine HCl 0.1 mg tablet 2 tab PO BEDTIME 05/08/22 08/28/22 08/08/22 History losartan 25 mg tablet 25 mg PO DAILY 07/12/22 08/28/22 08/09/22 History albuterol sulfate 90 mcg/actuation 2 puff inhalation Q6H PRN 08/09/22 08/28/22 Unknown History aerosol inhaler Respiratory Distress diphenhydramine HCl 25 mg capsule 25 mg PO DAILY 08/09/22 08/28/22 08/09/22 History (Benadryl) furosemide 20 mg tablet 20 mg PO MOWEFR@0900 08/09/22 08/28/22 08/09/22 History lorazepam 0.5 mg tablet (Ativan) 0.5 mg PO BEDTIME PRN ANXIETY/SLEEP 08/09/22 08/28/22 Unknown History cephalexin 500 mg capsule 1 cap PO BID 08/28/22 08/28/22 Unknown History cyanocobalamin (vitamin B-12) 1 tab PO DAILY 08/28/22 08/28/22 Unknown History 1,000 mcg tablet spironolactone 25 mg tablet 1 tab PO DAILY 08/28/22 08/28/22 Unknown History sulfamethoxazole 800 1 tab PO Q12H 08/28/22 08/28/22 Unknown History mg-trimethoprim 160 mg tablet Exam Exam Date and Time: August 29, 2022 1228 Height,Weight and Vital Signs: Height 5 ft 4 in Weight 97.6 kg Last Vital Signs Temp 97.4 F 08/29/22 12:03 Pulse 67 08/29/22 12:03 Resp 16 08/29/22 12:03 BP 155/55 H 08/29/22 12:03 Pulse Ox 100 08/29/22 12:03 O2 Del Method 08/29/22 12:03 Pertinent Lab Results Pertinent Lab Results: Laboratory Tests 08/28/22 08/28/22 08/29/22 16:58 17:20 06:22 WBC 7.1 RBC 2.50 L Hgb 8.2 L Hct 25.3 L MCV 101.2 H MCH 32.8 MCHC 32.4 RDW 13.2 Plt Count 521 H D MPV 10.0 Immature Gran % (Auto) 0.7 H Neut % (Auto) 69.9 Lymph % (Auto) 16.7 L [place] % (Auto) 11.0 Eos % (Auto) 1.3 Baso % (Auto) 0.4 Lymph # (Auto) 1.2 [place] # (Auto) 0.8 Eos # (Auto) 0.1 Baso # (Auto) 0.0 Abs Immat Gran (auto) 0.05 H Absolute Neuts (auto) 4.9 Absolute Nucleated RBC 0.000 Nucleated RBC % (auto) 0.0 Sodium Potassium Chloride Carbon Dioxide Anion Gap BUN Creatinine 1.28 Estim Creat Clear Calc 46.3 Estimated GFR 41 Fasting Glucose Calcium COVID-19 ([facility]) Negative COVID-19 Clin Com See Note 08/29/22 06:22 WBC RBC Hgb Hct MCV MCH MCHC RDW Plt Count MPV Immature Gran % (Auto) Neut % (Auto) Lymph % (Auto) [place] % (Auto) Eos % (Auto) Baso % (Auto) Lymph # (Auto) [place] # (Auto) Eos # (Auto) Baso # (Auto) Abs Immat Gran (auto) Absolute Neuts (auto) Absolute Nucleated RBC Nucleated RBC % (auto) Sodium 140 Potassium 4.0 Chloride 102 Carbon Dioxide 28 Anion Gap 14 BUN 17 H D Creatinine 1.08 Estim Creat Clear Calc 54.9 Estimated GFR 50 Fasting Glucose 98 Calcium 8.4 COVID-19 ([facility]) COVID-19 Clin Com Airway Mallampati Class: III TM Dist: >3cm Neck ROM: Full Heart: RRR Lungs: CTA Assessment and Plan Final Anesthetic Review Family History of Problems with Anesthesia: No History of Problems with Anesthesia: No ASA Class: III Final Preanesthetic Review: Meds/Allgs Chart Reviewed, Consent Obtained/Reviewed and Anes Risks/Benef Reviewed Patient Risk: Intermediate Procedure Risk: Low Anesthetic Plan Anesthetic Plan: GA Disposition: Standard PACU
--- NOTE | 2022-08-29 13:45 | MHC.CM.PN ---
EMR REVIEWED, CM MET W/PT WHO REPORTS SHE LIVES W/HER 92YO MOTHER AND THEY SUPPORT EACH OTHER, PT IS INDEP W/ALL CARE AT [facility], IS STILL WORKING, HAS A CANE SHE HAS BEEN USING AND NO HOME SERVICES, PT REPORTS SHE WAS TOLD BY ORTHO THAT SHE MAY QUALIFY FOR [facility] NOW AND SHE WOULD LIKE A REFERRAL THERE, PT ALSO REPORTS SHE WILL GO BACK TO [facility] IF NEEDED. PT HAS BEEN TO ED X2 SINCE INITIALLY DISCHARGED TO [facility] AND THEN SWITCHED REHABS TO [facility]. PLAN FOR OR TODAY AND ANTIC D/C 1-2 DAYS TO [facility]
[2022-08-29] MEDS: fentaNYL citrate/PF 100 MCG/2 ML VIAL 25 MCG IVPUSH ×3 (14:16→14:38)
[2022-08-29] MEDS: Acetaminophen 1,000 MG/100 ML PIGGYBACK 400 MG IV (14:17)
--- NOTE | 2022-08-29 14:25 | PM.OP ---
Brief Operative Note Date of Service: 08/29/22 Pre-op diagnosis: Left ankle infection with wound breakdown Post-op diagnosis: same Procedure: Irrigation and debridement left ankle with placement of vacuum assisted closure device Surgeon: Chino Trimble MD Anesthesia: GETA Was an Parking Station Attendant used for this Procedure?: No Estimated blood loss (mL): 50 IV fluids (mL): 500 Pathology: none sent Condition: stable Disposition: PACU
[2022-08-29] MEDS: HYDROmorphone HCl 0.5 MG/0.5 ML SYRINGE 0.25 MG IVPUSH (16:05)
[2022-08-29] MEDS: 0.9 % Sodium Chloride Flush 3 ML SYRINGE IVFLUSH (16:07)
[2022-08-29] MEDS: vancomycin HCL 1,500 MG in 0.9 % Sodium Chloride 500 ML 333.33 MG IV (19:57)
[2022-08-29] MEDS: cloNIDine HCL 0.2 MG TABLET PO (20:02)
[2022-08-30] MEDS: oxyCODONE HCl Immed Release 5 MG TABLET 10 MG PO ×6 (01:39→22:31)
[2022-08-30] MEDS: LORazepam 0.5 MG TABLET PO ×4 (01:58→20:10)
[2022-08-30 03:43] VITALS: BP 139/62; PULSE 67; RESP 18; TEMP 36.6; O2SAT 99
[2022-08-30] MEDS: Omeprazole 20 MG CAPSULE.DR PO (05:25)
[2022-08-30 06:31] LABS: MANUAL DIFF FLAG NO
[2022-08-30 06:36] LABS: Hematocrit 26.9 % (37.0-47.0); Hemoglobin 8.9 g/dl (12.0-16.0); Imm Gran Abs Auto 0.02 X10*3/uL (0.00-0.03); Imm Gran Pct Auto 0.4 % (0.0-0.4); Lymphocytes Absolute Auto 0.9 X10*3/uL (1.2-4.9); Lymphocytes Percent Auto 17.1 % (20-40); Mean Corpuscular HGB Conc 33.1 g/dl (31.0-35.0); Mean Corpuscular Hemoglobin 33.3 pg (27.0-33.0); Mean Corpuscular Volume 100.7 fL (80.0-98.0); Mean Platelet Volume 9.9 fL (9.4-12.3); Monocytes Absolute Auto 0.1 X10*3/uL (0.1-1.2); Monocytes Percent Auto 2.5 % (2-11); Neutrophils Absolute Auto 4.2 x10*3/uL (2.0-8.3); Platelet Count 568 X10*3/uL (160-400); Red Blood Count 2.67 X10*6/uL (4.20-5.50); Red Cell Distribution Width 12.9 % (11.0-16.0); White Blood Count 5.3 X10*3/uL (4.8-10.8)
[2022-08-30 06:56] LABS: Anion Gap 13 (12-20); Blood Urea Nitrogen 15 mg/dL (9-16); Calcium 8.5 mg/dL (8.4-10.2); Carbon Dioxide 26 mmol/L (22-29); Chloride 102 mmol/L (96-108); Creatinine Clr Calc Pharmacy 64.5; Estimated Glomerular Filt Rate > 60; Glucose Fasting 177 mg/dL (60-99); Potassium 4.4 mmol/L (3.3-5.1); Sodium 137 mmol/L (135-145)
[2022-08-30] MEDS: Ferrous Sulfate 324 MG TABLET.DR PO (07:51)
[2022-08-30] MEDS: Folic Acid 1 MG TABLET PO (07:51)
[2022-08-30] MEDS: Spironolactone 25 MG TABLET PO (07:51)
[2022-08-30] MEDS: Losartan Potassium 25 MG TABLET PO (07:51)
[2022-08-30] MEDS: carvediloL 12.5 MG TABLET 37.5 MG PO ×2 (07:51→20:10)
[2022-08-30] MEDS: Furosemide 20 MG TABLET PO (07:51)
[2022-08-30] MEDS: Lactated Ringers 1,000 ML 100 ML IVCONT (07:51)
[2022-08-30] MEDS: diphenhydrAMINE HCL 25 MG CAPSULE PO (07:51)
[2022-08-30] MEDS: Cyanocobalamin (Vitamin B-12) 1,000 MCG TABLET 1000 MCG PO (07:52)
[2022-08-30] MEDS: Acetaminophen 325 MG TABLET 650 MG PO ×2 (07:52→13:52)
[2022-08-30] MEDS: Atorvastatin Calcium 40 MG TABLET PO (07:52)
[2022-08-30 08:00] VITALS: BP 171/77; PULSE 63; RESP 18; TEMP 36.4; O2SAT 100
[2022-08-30 08:08] VITALS: PULSE 61
[2022-08-30] MEDS: Fluticasone/Vilanterol 100/25 BLST.W.DEV 1 PUFF INHALE (08:09)
[2022-08-30 08:11] VITALS: PULSE 61; RESP 16; O2SAT 100
--- NOTE | 2022-08-30 08:11 | P.PNOP_ITS ---
Subjective Subjective Date of Service: 08/30/22 Interval history: POD 1 s/p Left ankle debridement 08/30/22 No overnight events she is resting in bed with blue boot on and prevena intact denies cp, sob, palpitations. Physical Exam Vital Signs: Vital Signs: Last Vital Signs Temp 97.5 F 08/30/22 08:00 Pulse 63 08/30/22 08:00 Resp 18 08/30/22 08:00 BP 171/77 H 08/30/22 08:00 Pulse Ox 100 08/30/22 08:00 O2 Del Method 08/30/22 08:00 O2 Flow Rate 2 08/30/22 03:43 BMI result Body Mass Index 36.9 Const: General: cooperative, healthy appearing and no acute distress Resp: Effort & Inspection: normal respiratory effort and able to speak in complete sentences Cardio: Rate: regular rate Peripheral pulses: Peripheral pulses 2+ throughout GI: Palpation (GI): Soft to palpation Skin: General skin exam: no rashes or lesions noted Extrem: Other: Left ankle prevena and boot intact. She has mild pain with movement , left ankle NVI. Procedures Date of Service Date of Service: 08/30/22 Progress Note: A&P Assessment and plan (1) Surgical wound breakdown: Status: Acute (2) Closed left trimalleolar fracture: Status: Resolved Plan * Continue pain mgmnt * Begin lovenox for dvt ppx * begin PT /OT for LT ankle-NWB, gait training * Dispo planning-Pending PT eval, ID consult, nephrology consult, picc line Time Spent With Patient Time: Total time managing care of this patient today ____ minutes. Quality Stroke Does the patient have a stroke diagnosis?: No VTE Prior VTE?: No VTE Risk Level:: Surgical - very high VTE Device Contraindication: N/A - Device Ordered VTE Drug Contraindication: N/A - Med Ordered
--- NOTE | 2022-08-30 08:47 | MHC.CM.PN ---
CM MET W/ORTHO TO DISCUSS CASE PT NOW HAS WOUND VAC AND MAY NEED NURSING HOME IV ABX WELL AND PER ID PT WILL NEED BLOOD CULTURES PRIOR TO PICC PLACEMENT, ORTHO REPORTS THEY WOULD LIKE CM TO TRY AND GET PT INTO [facility] AND HAVE ORDERED OT/PT EVALS, ONCE EVALS ARE IN CM WILL SEND REFERRAL TO [facility] AND CONT TO FOLLOW.
--- NOTE | 2022-08-30 15:04 | PM.CNNEP ---
History of Present Illness Reason for Consult Consult date: 08/30/22 Reason for consult: Need for PICC Chief Complaint Chief complaint: Left ankle wound breakdown. History of Present Illness Narrative: this is a 72 yo woman followed by Dr. Shah of [facility] who presented in transfer from [facility] with an infected dehisced ankle wound. She has followed with Dr. Singh for over 30 years with stable nonprogressive CKD and a creat of 1 mg/dl. 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 Review of Systems Review of Systems Left ankle pain step nontender Denies chest pain/pressure No shortness of breath No cough Denies fever/chills, nausea, vomiting, abdominal pain Yes all other systems are reviewed and are negative [facility] [place] Past Medical History Medical History (Updated 08/30/22 @ 15:08 by Elvira Montes De Oca MD) (HFpEF) heart failure with preserved ejection fraction Acute CHF Arthritis Asthma Chronic kidney disease (CKD) stage G3a/A1, moderately decreased glomerular filtration rate (GFR) between 45-59 mL/min/1.73 square meter and albuminuria creatinine ratio less than 30 mg/g COPD (chronic obstructive pulmonary disease) Diverticulosis Essential hypertension GERD (gastroesophageal reflux disease) Gout Hepatic steatosis HTN (hypertension) Hypercholesteremia Inguinal hernia Occult fracture Other and unspecified hyperlipidemia Sliding hiatal hernia Uncontrolled hypertension Functional capacity: independent ambulation Family History Family History Father CHF (congestive heart failure) Mother CHF (congestive heart failure) Surgical History Surgical History History of total left knee replacement Hx of rotator cuff surgery Hx of tonsillectomy Social History Social History Household Members: Family Household Members Other:: mother Housing: House Do you presently have visiting nurse or other home services: No Alcohol intake: current Alcohol intake frequency: does not drink Alcohol type: wine Patient Tobacco Use Status: Former Tobacco user Quit Date: 25 yrs ago Second Hand Smoke Exposure: No Advance Directives Date on File: 12/04/20 service: No Current occupational status: employed 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, 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 Meds Allergies Allergy/AdvReac Type Severity Reaction Status Date / Time shrimp Allergy Severe Anaphylaxis Verified 08/28/22 14:52 Penicillins Allergy Unknown UNKNOWN Verified 08/28/22 14:52 levofloxacin [From Levaquin] Allergy Hypertensio Verified 08/28/22 14:52 n paroxetine [From Paxil] Allergy Unknown Verified 08/28/22 14:52 prochlorperazine Allergy Unknown Verified 08/28/22 14:52 [From Compazine] tripoly phosphate Allergy Anaphylaxis Uncoded 08/28/22 14:52 Active Medications: Current Medications Acetaminophen (Acetaminophen 325 Mg Tablet) 650 mg PO Q6H PRN PRN Reason: Pain, Mild (Pain Scale 1-3) Last Admin: 08/30/22 13:52 Dose: 650 mg Albuterol Sulfate (Albuterol Sulfate 90 Mcg 8 Gm Inhaler) 2 puff INHALE Q6H PRN PRN Reason: Respiratory Distress Atorvastatin Calcium (Atorvastatin Calcium 40 Mg Tablet) 40 mg PO DAILY [facility] Last Admin: 08/30/22 07:52 Dose: 40 mg Carvedilol (Carvedilol 12.5 Mg Tablet) 37.5 mg PO BID [facility]; Protocol Last Admin: 08/30/22 07:51 Dose: 37.5 mg Clonidine HCl (Clonidine Hcl 0.2 Mg Tablet) 0.2 mg PO BEDTIME [facility]; Protocol Last Admin: 08/29/22 20:02 Dose: 0.2 mg Cyanocobalamin (Cyanocobalamin (Vitamin B-12) 1,000 Mcg Tablet) 1,000 mcg PO DAILY [facility] Last Admin: 08/30/22 07:52 Dose: 1,000 mcg Diphenhydramine HCl (Diphenhydramine Hcl 25 Mg Capsule) 25 mg PO DAILY [facility] Last Admin: 08/30/22 07:51 Dose: 25 mg Epinephrine (Epinephrine 1 Mg/Ml Vial) 0.3 mg IM Q20M PRN PRN Reason: anaphylaxis Ferrous Sulfate (Ferrous Sulfate 324 Mg Tablet.Dr) 324 mg PO DAILY [facility] Last Admin: 08/30/22 07:51 Dose: 324 mg Fluticasone/Vilanterol (Fluticasone/Vilanterol 100/25 Blst.W.Dev) 1 puff INHALE RDAILY [facility] Last Admin: 08/30/22 08:09 Dose: 1 puff Folic Acid (Folic Acid 1 Mg Tablet) 1 mg PO DAILY [facility] Last Admin: 08/30/22 07:51 Dose: 1 mg Furosemide (Furosemide 20 Mg Tablet) 20 mg PO MOWEFR@0900 [facility]; Protocol Last Admin: 08/30/22 07:51 Dose: 20 mg Hydromorphone HCl (Hydromorphone Hcl 0.5 Mg/0.5 Ml Syringe) 0.25 mg IVPUSH Q4H PRN; Protocol PRN Reason: Pain, Severe (Pain Scale 7-10) Last Admin: 08/29/22 16:05 Dose: 0.25 mg Lactated Ringer's (Lr) 1,000 mls @ 100 mls/hr IVCONT .Q10H [facility] Last Admin: 08/30/22 07:51 Dose: 100 mls/hr Vancomycin HCl 1,500 mg/ (Sodium Chloride) 500 mls @ 333.333 mls/hr IV Q24H [facility] Last Infusion: 08/29/22 21:43 Dose: Infused Lorazepam (Lorazepam 0.5 Mg Tablet) 0.5 mg PO BEDTIME [facility] Last Admin: 08/29/22 20:02 Dose: 0.5 mg Lorazepam (Lorazepam 0.5 Mg Tablet) 0.5 mg PO Q6H PRN PRN Reason: Anxiety Last Admin: 08/30/22 09:06 Dose: 0.5 mg Losartan Potassium (Losartan Potassium 25 Mg Tablet) 25 mg PO DAILY [facility]; Protocol Last Admin: 08/30/22 07:51 Dose: 25 mg Omeprazole (Omeprazole 20 Mg Capsule.Dr) 20 mg PO DAILY@0630 [facility] Last Admin: 08/30/22 05:25 Dose: 20 mg Ondansetron HCl (Ondansetron Hcl 4 Mg/2 Ml Vial) 4 mg IVPUSH Q8H PRN PRN Reason: Nausea and Vomiting Oxycodone HCl (Oxycodone Hcl Immed Release 5 Mg Tablet) 10 mg PO Q4H [facility] Last Admin: 08/30/22 13:52 Dose: 10 mg Pharmacy Consult (Consult Rx Vancomycin Dosing) 1 each MISCELLANE DAILY PRN PRN Reason: Consult order Sodium Chloride (0.9 % Sodium Chloride Flush 3 Ml Syringe) 3 ml IVFLUSH QSHIFT [facility] Last Admin: 08/30/22 14:39 Dose: Not Given Spironolactone (Spironolactone 25 Mg Tablet) 25 mg PO DAILY [facility]; Protocol Last Admin: 08/30/22 07:51 Dose: 25 mg Home Medications Medication Instructions Recorded Confirmed Last Taken Type pantoprazole 40 mg tablet,delayed 40 mg PO DAILY 11/17/20 08/28/22 08/09/22 History release atorvastatin 40 mg tablet 40 mg PO DAILY 03/12/21 08/28/22 08/09/22 History clonidine HCl 0.1 mg tablet 2 tab PO BEDTIME 05/08/22 08/28/22 08/08/22 History losartan 25 mg tablet 25 mg PO DAILY 07/12/22 08/28/22 08/09/22 History albuterol sulfate 90 mcg/actuation 2 puff inhalation Q6H PRN 08/09/22 08/28/22 Unknown History aerosol inhaler Respiratory Distress diphenhydramine HCl 25 mg capsule 25 mg PO DAILY 08/09/22 08/28/22 08/09/22 History (Benadryl) furosemide 20 mg tablet 20 mg PO MOWEFR@0900 08/09/22 08/28/22 08/09/22 History lorazepam 0.5 mg tablet (Ativan) 0.5 mg PO BEDTIME PRN ANXIETY/SLEEP 08/09/22 08/28/22 Unknown History cephalexin 500 mg capsule 1 cap PO BID 08/28/22 08/28/22 Unknown History cyanocobalamin (vitamin B-12) 1 tab PO DAILY 08/28/22 08/28/22 Unknown History 1,000 mcg tablet spironolactone 25 mg tablet 1 tab PO DAILY 08/28/22 08/28/22 Unknown History sulfamethoxazole 800 1 tab PO Q12H 08/28/22 08/28/22 Unknown History mg-trimethoprim 160 mg tablet Physical Exam Vital Signs: Last Vital Signs Temp 97.5 F 08/30/22 08:00 Pulse 61 08/30/22 08:11 Resp 16 08/30/22 08:11 BP 171/77 H 08/30/22 08:00 Pulse Ox 100 08/30/22 08:00 O2 Del Method 08/30/22 08:00 O2 Flow Rate 2 08/30/22 03:43 BMI result Body Mass Index 36.9 Const General: cooperative, healthy appearing and no acute distress Limitations: No language barrier Resp Effort & Inspection: normal respiratory effort and able to speak in complete sentences Cardio Rate: regular rate Peripheral pulses: Peripheral pulses 2+ throughout GI Palpation (GI): Soft to palpation Skin General skin exam: no rashes or lesions noted Extrem Other: Left ankle prevena and boot intact. She has mild pain with movement , left ankle NVI. Results Lab Results 08/30/22 06:18 08/30/22 06:18 Lab results: Chemistry 08/28/22 08/29/22 08/30/22 17:20 06:22 06:18 Sodium 140 137 Potassium 4.0 4.4 Carbon Dioxide 28 26 BUN 17 H D 15 Creatinine 1.28 1.08 0.92 Calcium 8.4 8.5 Hematology 08/29/22 08/30/22 06:22 06:18 WBC 7.1 5.3 Hgb 8.2 L 8.9 L Plt Count 521 H D 568 H Assessment and Plan (1) Closed left trimalleolar fracture: Status: Resolved (2) HTN (hypertension): Status: Acute (3) Chronic kidney disease (CKD) stage G3a/A1, moderately decreased glomerular filtration rate (GFR) between 45-59 mL/min/1.73 square meter and albuminuria creatinine ratio less than 30 mg/g: Status: Acute Plan Pt has stable nonprogressive CKD Unlikely she will need dialysis in her lifetime Hence, I have no objection with her having a PICC placed for antibiotics Time Spent With Patient Time: Total time managing care of this patient today ____ minutes. Procedures Date of Service Date of Service: 08/30/22
[2022-08-30 15:19] VITALS: BP 158/68; PULSE 66; RESP 17; TEMP 36.1; O2SAT 100
--- NOTE | 2022-08-30 15:29 | HO.POSTANES ---
Post Anesthesia Evaluation Post Anesthesia Evaluation Vital Signs: Vital Signs Temp Pulse Resp BP Pulse Ox O2 Del Method O2 Flow Rate 08/30/22 15:19 96.9 F 66 17 158/68 H 100 Room Air 08/30/22 08:00 97.5 F 63 18 171/77 H 100 Room Air 08/30/22 08:11 61 16 08/30/22 08:08 61 08/30/22 03:43 97.8 F 67 18 139/62 99 Nasal Cannula 2 Anesthesia: General Mental Status: Awake Pain Control: Satisfactory Nausea/Vomiting: None Hydration: Adequate Anesthesia-Related Issues: No Anes. Related Issues
--- NOTE | 2022-08-30 16:04 | W.PM.IDCN ---
History of Present Illness Data of Consult Service Date: 08/30/22 Requesting physician: Brooks Mendoza Primary Care Provider: Ana Lilia Espinoza NP HPI Reason for consult: possible ankle infection She presents with left ankle trimalleolar fracture and after swelling left ankle ORIF 08/13/2022. She has some swelling still and had irrigation and debridement and has gram positive cocci and cultures negative. She has no fever or chills. She reports seeing Nephrology for renal insufficiency. Review of Systems Review of Systems: Yes all other systems are reviewed and are negative [facility] Past Medical History Medical History (HFpEF) heart failure with preserved ejection fraction Acute CHF Arthritis Asthma Chronic kidney disease (CKD) stage G3a/A1, moderately decreased glomerular filtration rate (GFR) between 45-59 mL/min/1.73 square meter and albuminuria creatinine ratio less than 30 mg/g COPD (chronic obstructive pulmonary disease) Diverticulosis Essential hypertension GERD (gastroesophageal reflux disease) Gout Hepatic steatosis HTN (hypertension) Hypercholesteremia Inguinal hernia Occult fracture Other and unspecified hyperlipidemia Sliding hiatal hernia Uncontrolled hypertension Functional capacity: independent ambulation Family History Family History Father CHF (congestive heart failure) Mother CHF (congestive heart failure) Family history: reviewed and not pertinent Surgical History Surgical History History of total left knee replacement Hx of rotator cuff surgery Hx of tonsillectomy Social History Social History Household Members: Family Household Members Other:: mother Housing: House Do you presently have visiting nurse or other home services: No Alcohol intake: current Alcohol intake frequency: does not drink Alcohol type: wine Patient Tobacco Use Status: Former Tobacco user Quit Date: 25 yrs ago Second Hand Smoke Exposure: No Advance Directives Date on File: 12/04/20 service: No Current occupational status: employed 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, 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 Meds Allergies Allergy/AdvReac Type Severity Reaction Status Date / Time shrimp Allergy Severe Anaphylaxis Verified 08/28/22 14:52 Penicillins Allergy Unknown UNKNOWN Verified 08/28/22 14:52 levofloxacin [From Levaquin] Allergy Hypertensio Verified 08/28/22 14:52 n paroxetine [From Paxil] Allergy Unknown Verified 08/28/22 14:52 prochlorperazine Allergy Unknown Verified 08/28/22 14:52 [From Compazine] tripoly phosphate Allergy Anaphylaxis Uncoded 08/28/22 14:52 Active Medications: Current Medications Acetaminophen (Acetaminophen 325 Mg Tablet) 650 mg PO Q6H PRN PRN Reason: Pain, Mild (Pain Scale 1-3) Last Admin: 08/30/22 13:52 Dose: 650 mg Albuterol Sulfate (Albuterol Sulfate 90 Mcg 8 Gm Inhaler) 2 puff INHALE Q6H PRN PRN Reason: Respiratory Distress Atorvastatin Calcium (Atorvastatin Calcium 40 Mg Tablet) 40 mg PO DAILY [facility] Last Admin: 08/30/22 07:52 Dose: 40 mg Carvedilol (Carvedilol 12.5 Mg Tablet) 37.5 mg PO BID [facility]; Protocol Last Admin: 08/30/22 07:51 Dose: 37.5 mg Clonidine HCl (Clonidine Hcl 0.2 Mg Tablet) 0.2 mg PO BEDTIME [facility]; Protocol Last Admin: 08/29/22 20:02 Dose: 0.2 mg Cyanocobalamin (Cyanocobalamin (Vitamin B-12) 1,000 Mcg Tablet) 1,000 mcg PO DAILY [facility] Last Admin: 08/30/22 07:52 Dose: 1,000 mcg Diphenhydramine HCl (Diphenhydramine Hcl 25 Mg Capsule) 25 mg PO DAILY [facility] Last Admin: 08/30/22 07:51 Dose: 25 mg Epinephrine (Epinephrine 1 Mg/Ml Vial) 0.3 mg IM Q20M PRN PRN Reason: anaphylaxis Ferrous Sulfate (Ferrous Sulfate 324 Mg Tablet.Dr) 324 mg PO DAILY [facility] Last Admin: 08/30/22 07:51 Dose: 324 mg Fluticasone/Vilanterol (Fluticasone/Vilanterol 100/25 Blst.W.Dev) 1 puff INHALE RDAILY [facility] Last Admin: 08/30/22 08:09 Dose: 1 puff Folic Acid (Folic Acid 1 Mg Tablet) 1 mg PO DAILY [facility] Last Admin: 08/30/22 07:51 Dose: 1 mg Furosemide (Furosemide 20 Mg Tablet) 20 mg PO MOWEFR@0900 [facility]; Protocol Last Admin: 08/30/22 07:51 Dose: 20 mg Hydromorphone HCl (Hydromorphone Hcl 0.5 Mg/0.5 Ml Syringe) 0.25 mg IVPUSH Q4H PRN; Protocol PRN Reason: Pain, Severe (Pain Scale 7-10) Last Admin: 08/29/22 16:05 Dose: 0.25 mg Lactated Ringer's (Lr) 1,000 mls @ 100 mls/hr IVCONT .Q10H [facility] Last Admin: 08/30/22 07:51 Dose: 100 mls/hr Vancomycin HCl 1,500 mg/ (Sodium Chloride) 500 mls @ 333.333 mls/hr IV Q24H [facility] Last Infusion: 08/29/22 21:43 Dose: Infused Lorazepam (Lorazepam 0.5 Mg Tablet) 0.5 mg PO BEDTIME [facility] Last Admin: 08/29/22 20:02 Dose: 0.5 mg Lorazepam (Lorazepam 0.5 Mg Tablet) 0.5 mg PO Q6H PRN PRN Reason: Anxiety Last Admin: 08/30/22 09:06 Dose: 0.5 mg Losartan Potassium (Losartan Potassium 25 Mg Tablet) 25 mg PO DAILY [facility]; Protocol Last Admin: 08/30/22 07:51 Dose: 25 mg Omeprazole (Omeprazole 20 Mg Capsule.Dr) 20 mg PO DAILY@0630 [facility] Last Admin: 08/30/22 05:25 Dose: 20 mg Ondansetron HCl (Ondansetron Hcl 4 Mg/2 Ml Vial) 4 mg IVPUSH Q8H PRN PRN Reason: Nausea and Vomiting Oxycodone HCl (Oxycodone Hcl Immed Release 5 Mg Tablet) 10 mg PO Q4H [facility] Last Admin: 08/30/22 13:52 Dose: 10 mg Pharmacy Consult (Consult Rx Vancomycin Dosing) 1 each MISCELLANE DAILY PRN PRN Reason: Consult order Sodium Chloride (0.9 % Sodium Chloride Flush 3 Ml Syringe) 3 ml IVFLUSH QSHIFT [facility] Last Admin: 08/30/22 14:39 Dose: Not Given Spironolactone (Spironolactone 25 Mg Tablet) 25 mg PO DAILY [facility]; Protocol Last Admin: 08/30/22 07:51 Dose: 25 mg Home Medications Medication Instructions Recorded Confirmed Last Taken Type pantoprazole 40 mg tablet,delayed 40 mg PO DAILY 03/26/21 01/04/23 12/16/22 History release atorvastatin 40 mg tablet 40 mg PO DAILY 03/12/21 08/28/22 08/09/22 History clonidine HCl 0.1 mg tablet 2 tab PO BEDTIME 05/08/22 08/28/22 08/08/22 History losartan 25 mg tablet 25 mg PO DAILY 07/12/22 08/28/22 08/09/22 History albuterol sulfate 90 mcg/actuation 2 puff inhalation Q6H PRN 08/09/22 08/28/22 Unknown History aerosol inhaler Respiratory Distress diphenhydramine HCl 25 mg capsule 25 mg PO DAILY 08/09/22 08/28/22 08/09/22 History (Benadryl) furosemide 20 mg tablet 20 mg PO MOWEFR@0900 08/09/22 08/28/22 08/09/22 History lorazepam 0.5 mg tablet (Ativan) 0.5 mg PO BEDTIME PRN ANXIETY/SLEEP 08/09/22 08/28/22 Unknown History cephalexin 500 mg capsule 1 cap PO BID 08/28/22 08/28/22 Unknown History cyanocobalamin (vitamin B-12) 1 tab PO DAILY 08/28/22 08/28/22 Unknown History 1,000 mcg tablet spironolactone 25 mg tablet 1 tab PO DAILY 08/28/22 08/28/22 Unknown History sulfamethoxazole 800 1 tab PO Q12H 08/28/22 08/28/22 Unknown History mg-trimethoprim 160 mg tablet Physical Exam Vital Signs: Vital Signs: Last Vital Signs Temp 96.9 F 08/30/22 15:19 Pulse 66 08/30/22 15:19 Resp 17 08/30/22 15:19 BP 158/68 H 08/30/22 15:19 Pulse Ox 100 08/30/22 15:19 O2 Del Method 08/30/22 15:19 O2 Flow Rate 2 08/30/22 03:43 BMI result Body Mass Index 36.9 Const: General: cooperative HEENT: Head: Yes normal to inspection Face and sinus: Yes normal facial exam Mouth: Normal oral and palatal mucosa present Teeth and gingiva: dentition normal Eyes: General: appearance normal, both eyes and all related structures Pupils: Equal, round and reactive pupils present Resp: Effort & Inspection: normal respiratory effort Cardio: Rate: regular rate Rhythm: regular rhythm GI: Palpation (GI): Soft to palpation and nontender : General: Yes no CVA tenderness Back/Spine/Pelvis: Back: no CVA tenderness Skin: General skin exam: no rashes or lesions noted Neuro: General: moves all extremities Cranial nerves: Yes Equal, round and reactive pupils present Extrem: Other: left ankle wound vac swelling/bruising Psych: Appearance: grossly normal Results Labs 08/30/22 06:18 08/30/22 06:18 Labs: Short CBC 08/30/22 Range/Units 06:18 WBC 5.3 (4.8-10.8) X10*3/uL Hgb 8.9 L (12.0-16.0) g/dl Hct 26.9 L (37.0-47.0) % Plt Count 568 H (160-400) X10*3/uL BMP 08/30/22 06:18 Sodium 137 Potassium 4.4 Chloride 102 Carbon Dioxide 26 BUN 15 Creatinine 0.92 Calcium 8.5 Assessment and Plan (1) Surgical wound breakdown: Status: Acute (2) Wound cellulitis: Status: Acute She has possible staph or strep with gram positive cocci in wound There is wound infection concern (3) Chronic kidney disease (CKD) stage G3a/A1, moderately decreased glomerular filtration rate (GFR) between 45-59 mL/min/1.73 square meter and albuminuria creatinine ratio less than 30 mg/g: Status: Acute Plan Would give IV Daptomycin for six weeks as better to give with renal insufficiency. Weekly CK,LFT, creatinine and Concepcion/chest wall catheter/no PICC. Time Spent With Patient Time: Total time managing care of this patient today ____ minutes.
--- NOTE | 2022-08-30 17:17 | PM.EVENT ---
Event Note Date of Service: 08/30/22 Event Note: Pt seen in f/u for med follow, pt's major concern is pain management and second anxiety.. Oxycodone + Tyelenol seem to be working for pain, and ativan for anxiety now at increased freqency. She doesn't want IV pain medds. If present ativan dose not able to control anxiety would suggest Psych consult and if needed oxycodone dose can be increase and adjust Tylenol to Q4 rather 6. BP somehow highe on Clonidine, Coreg and Losartan and if needed increase Losartan to 50. Time Spent With Patient Time: Total time managing care of this patient today ____ minutes.
[2022-08-30 18:25] LABS: Vancomycin Random 15.9 mcg/mL (15-20)
[2022-08-30 19:39] VITALS: BP 186/76; PULSE 63; RESP 15; TEMP 36.2; O2SAT 100
[2022-08-30] MEDS: cloNIDine HCL 0.2 MG TABLET PO (20:10)
[2022-08-30] MEDS: vancomycin HCL 1,000 MG in 0.9 % Sodium Chloride 250 ML 270 MG IV (20:12)
[2022-08-30] MEDS: 0.9 % Sodium Chloride Flush 3 ML SYRINGE IVFLUSH (20:15)
--- NOTE | 2022-08-30 23:17 | PM.PNORT ---
Subjective Subjective Date of Service: 08/31/22 Interval history: POD 2 s/p Left ankle debridement 08/30/22 No overnight events she is resting in bed with blue boot on and prevena intact denies cp, sob, palpitations. Physical Exam Vital Signs: Vital Signs: Last Vital Signs Temp 97.2 F 08/30/22 19:39 Pulse 63 08/30/22 19:39 Resp 15 08/30/22 19:39 BP 186/76 H 08/30/22 19:39 Pulse Ox 100 08/30/22 19:39 O2 Del Method 08/30/22 19:39 O2 Flow Rate 2 08/30/22 03:43 BMI result Body Mass Index 36.9 Const: General: cooperative, healthy appearing and no acute distress Resp: Effort & Inspection: normal respiratory effort and able to speak in complete sentences Cardio: Rate: regular rate Peripheral pulses: Peripheral pulses 2+ throughout GI: Palpation (GI): Soft to palpation Skin: General skin exam: no rashes or lesions noted Extrem: Other: Left ankle prevena and boot intact. She has mild pain with movement , left ankle NVI. Procedures Date of Service Date of Service: 08/31/22 Progress Note: A&P Assessment and plan (1) Surgical wound breakdown: Status: Acute Assessment and Plan: ID recommends: Would give IV Daptomycin for six weeks as better to give with renal insufficiency. Weekly CK,LFT, creatinine (2) Closed left trimalleolar fracture: Status: Resolved Assessment and Plan: Continue pain mgmnt PT/OT NWB LLE, prevena intact. Keep on at all times Lovenox for dvt ppx qd blood cultures and picc line pending (3) Chronic kidney disease (CKD) stage G3a/A1, moderately decreased glomerular filtration rate (GFR) between 45-59 mL/min/1.73 square meter and albuminuria creatinine ratio less than 30 mg/g: Status: Acute Assessment and Plan: Nephrology recommendation: Pt has stable nonprogressive CKD Unlikely she will need dialysis in her lifetime Hence, I have no objection with her having a PICC placed for antibiotics Plan Dispo pending blood cx and picc line , rehab placement Time Spent With Patient Time: Total time managing care of this patient today ____ minutes. Quality Stroke Does the patient have a stroke diagnosis?: No VTE Prior VTE?: No VTE Risk Level:: Surgical - very high VTE Device Contraindication: N/A - Device Ordered VTE Drug Contraindication: N/A - Med Ordered
[2022-08-31] MEDS: oxyCODONE HCl Immed Release 5 MG TABLET 10 MG PO ×6 (02:42→21:08)
[2022-08-31 04:00] VITALS: BP 129/77; PULSE 61; RESP 18; TEMP 36.5; O2SAT 98
[2022-08-31 05:38] LABS: MANUAL DIFF FLAG NO
[2022-08-31 05:45] LABS: Basophils Percent Auto 0.2 % (0-2); Eosinophils Percent Auto 0.1 % (0-4); Hematocrit 25.4 % (37.0-47.0); Hemoglobin 8.1 g/dl (12.0-16.0); Imm Gran Abs Auto 0.05 X10*3/uL (0.00-0.03); Imm Gran Pct Auto 0.5 % (0.0-0.4); Lymphocytes Absolute Auto 2.1 X10*3/uL (1.2-4.9); Lymphocytes Percent Auto 20.6 % (20-40); Mean Corpuscular HGB Conc 31.9 g/dl (31.0-35.0); Mean Corpuscular Hemoglobin 33.1 pg (27.0-33.0); Mean Corpuscular Volume 103.7 fL (80.0-98.0); Mean Platelet Volume 9.9 fL (9.4-12.3); Monocytes Absolute Auto 0.8 X10*3/uL (0.1-1.2); Monocytes Percent Auto 8.1 % (2-11); Neutrophils Absolute Auto 7.1 x10*3/uL (2.0-8.3); Neutrophils Percent Auto 70.5 % (45-73); Platelet Count 512 X10*3/uL (160-400); Red Blood Count 2.45 X10*6/uL (4.20-5.50)
[2022-08-31 05:56] LABS: Anion Gap 15 (12-20); Blood Urea Nitrogen 17 mg/dL (9-16); Calcium 8.2 mg/dL (8.4-10.2); Carbon Dioxide 22 mmol/L (22-29); Chloride 105 mmol/L (96-108); Creatinine Clr Calc Pharmacy 67.4; Estimated Glomerular Filt Rate > 60; Glucose Fasting 108 mg/dL (60-99); Potassium 3.7 mmol/L (3.3-5.1); Sodium 138 mmol/L (135-145)
[2022-08-31] MEDS: Omeprazole 20 MG CAPSULE.DR PO (06:15)
[2022-08-31 08:00] VITALS: BP 153/82; PULSE 65; RESP 18; TEMP 36.4; O2SAT 100
[2022-08-31] MEDS: Fluticasone/Vilanterol 100/25 BLST.W.DEV 1 PUFF INHALE (08:40)
[2022-08-31 08:41] VITALS: PULSE 62; RESP 14; O2SAT 99
[2022-08-31] MEDS: Enoxaparin Sodium 40 MG/0.4 ML SYRINGE SUBCUT (08:48)
[2022-08-31] MEDS: Losartan Potassium 25 MG TABLET PO (08:49)
[2022-08-31] MEDS: Cyanocobalamin (Vitamin B-12) 1,000 MCG TABLET 1000 MCG PO (08:49)
[2022-08-31] MEDS: Ferrous Sulfate 324 MG TABLET.DR PO (08:49)
[2022-08-31] MEDS: Folic Acid 1 MG TABLET PO (08:49)
[2022-08-31] MEDS: diphenhydrAMINE HCL 25 MG CAPSULE PO (08:49)
[2022-08-31] MEDS: Atorvastatin Calcium 40 MG TABLET PO (08:50)
[2022-08-31] MEDS: Spironolactone 25 MG TABLET PO (08:50)
[2022-08-31] MEDS: carvediloL 12.5 MG TABLET 37.5 MG PO ×2 (08:52→21:07)
[2022-08-31] MEDS: 0.9 % Sodium Chloride Flush 3 ML SYRINGE IVFLUSH ×3 (08:55→19:51)
[2022-08-31] MEDS: Acetaminophen 1,000 MG/100 ML PIGGYBACK 400 MG IV ×3 (09:16→21:09)
[2022-08-31] MEDS: LORazepam 0.5 MG TABLET PO ×2 (13:20→21:08)
[2022-08-31 15:52] VITALS: BP 108/58; PULSE 69; RESP 16; TEMP 36.7; O2SAT 98
[2022-08-31 19:53] VITALS: BP 145/64; PULSE 67; RESP 16; TEMP 37.1; O2SAT 100
[2022-08-31] MEDS: cloNIDine HCL 0.2 MG TABLET PO (21:08)
[2022-09-01] MEDS: oxyCODONE HCl Immed Release 5 MG TABLET 10 MG PO ×6 (02:22→22:01)
[2022-09-01] MEDS: Acetaminophen 1,000 MG/100 ML PIGGYBACK 400 MG IV (02:31)
[2022-09-01 04:00] VITALS: BP 141/68; PULSE 61; RESP 18; TEMP 36.6; O2SAT 99
[2022-09-01 05:34] LABS: MANUAL DIFF FLAG NO
[2022-09-01 05:37] LABS: Basophils Percent Auto 0.5 % (0-2); Eosinophils Absolute Auto 0.1 X10*3/uL (0.0-0.4); Eosinophils Percent Auto 1.1 % (0-4); Hematocrit 25.4 % (37.0-47.0); Hemoglobin 8.3 g/dl (12.0-16.0); Imm Gran Abs Auto 0.03 X10*3/uL (0.00-0.03); Imm Gran Pct Auto 0.5 % (0.0-0.4); Lymphocytes Percent Auto 30.5 % (20-40); Mean Corpuscular HGB Conc 32.7 g/dl (31.0-35.0); Mean Corpuscular Hemoglobin 33.1 pg (27.0-33.0); Mean Corpuscular Volume 101.2 fL (80.0-98.0); Mean Platelet Volume 9.9 fL (9.4-12.3); Monocytes Absolute Auto 0.6 X10*3/uL (0.1-1.2); Monocytes Percent Auto 9.4 % (2-11); Neutrophils Absolute Auto 3.9 x10*3/uL (2.0-8.3); Platelet Count 429 X10*3/uL (160-400); Red Blood Count 2.51 X10*6/uL (4.20-5.50); Red Cell Distribution Width 12.9 % (11.0-16.0); White Blood Count 6.6 X10*3/uL (4.8-10.8)
[2022-09-01 05:55] LABS: Anion Gap 12 (12-20); Blood Urea Nitrogen 19 mg/dL (9-16); Calcium 8.2 mg/dL (8.4-10.2); Carbon Dioxide 27 mmol/L (22-29); Chloride 105 mmol/L (96-108); Creatinine Clr Calc Pharmacy 63.2; Estimated Glomerular Filt Rate 59; Glucose Fasting 99 mg/dL (60-99); Potassium 4.2 mmol/L (3.3-5.1); Sodium 140 mmol/L (135-145)
[2022-09-01] MEDS: Omeprazole 20 MG CAPSULE.DR PO (06:05)
[2022-09-01 07:50] VITALS: BP 161/73; PULSE 69; RESP 18; TEMP 36; O2SAT 100
--- NOTE | 2022-09-01 08:44 | HO.PM.IMPN ---
Subjective Subjective Date of Service: 09/01/22 Interval History: f/u on wound infection, pain overall is doing better today, pain is controlled, slept well Physical Exam Vital Signs: Vital Signs: Last Vital Signs Temp 96.8 F 09/01/22 07:50 Pulse 69 09/01/22 07:50 Resp 18 09/01/22 07:50 BP 161/73 H 09/01/22 07:50 Pulse Ox 100 09/01/22 07:50 O2 Del Method 09/01/22 07:50 O2 Flow Rate 2 08/30/22 03:43 BMI result Body Mass Index 36.9 Const: Other: General: AO X 3, no acute distress Resp: CTA bilateral CVS: S1,S2,RRR GI: +BS, NT, no distention Skin: left ankle wound van in place Neuro: motor grossly intact Psych: appropriate affect Objective Data Active Medications Acetaminophen (Acetaminophen 325 Mg Tablet) 650 mg PO Q4H PRN PRN Reason: Pain, Severe (Pain Scale 7-10) Albuterol Sulfate (Albuterol Sulfate 90 Mcg 8 Gm Inhaler) 2 puff INHALE Q6H PRN PRN Reason: Respiratory Distress Atorvastatin Calcium (Atorvastatin Calcium 40 Mg Tablet) 40 mg PO DAILY [facility] Last Admin: 08/31/22 08:50 Dose: 40 mg Documented By: DB Carvedilol (Carvedilol 12.5 Mg Tablet) 37.5 mg PO BID [facility]; Protocol Last Admin: 08/31/22 21:07 Dose: 37.5 mg Documented By: AFSANEH Clonidine HCl (Clonidine Hcl 0.2 Mg Tablet) 0.2 mg PO BEDTIME [facility]; Protocol Last Admin: 08/31/22 21:08 Dose: 0.2 mg Documented By: AFSANEH Cyanocobalamin (Cyanocobalamin (Vitamin B-12) 1,000 Mcg Tablet) 1,000 mcg PO DAILY [facility] Last Admin: 08/31/22 08:49 Dose: 1,000 mcg Documented By: DB Diphenhydramine HCl (Diphenhydramine Hcl 25 Mg Capsule) 25 mg PO DAILY [facility] Last Admin: 08/31/22 08:49 Dose: 25 mg Documented By: DB Enoxaparin Sodium (Enoxaparin Sodium 40 Mg/0.4 Ml Syringe) 40 mg SUBCUT Q24H [facility] Last Admin: 08/31/22 08:48 Dose: 40 mg Documented By: DB Epinephrine (Epinephrine 1 Mg/Ml Vial) 0.3 mg IM Q20M PRN PRN Reason: anaphylaxis Ferrous Sulfate (Ferrous Sulfate 324 Mg Tablet.) 324 mg PO DAILY [facility] Last Admin: 08/31/22 08:49 Dose: 324 mg Documented By: DB Fluticasone/Vilanterol (Fluticasone/Vilanterol 100/25 Blst.W.Dev) 1 puff INHALE RDAILY [facility] Last Admin: 08/31/22 08:40 Dose: 1 puff Documented By: ASHER Folic Acid (Folic Acid 1 Mg Tablet) 1 mg PO DAILY [facility] Last Admin: 08/31/22 08:49 Dose: 1 mg Documented By: DB Furosemide (Furosemide 20 Mg Tablet) 20 mg PO MOWEFR@0900 [facility]; Protocol Last Admin: 08/30/22 07:51 Dose: 20 mg Documented By: ABHIJEET Hydromorphone HCl (Hydromorphone Hcl 0.5 Mg/0.5 Ml Syringe) 0.25 mg IVPUSH Q4H PRN; Protocol PRN Reason: Pain, Severe (Pain Scale 7-10) Last Admin: 08/29/22 16:05 Dose: 0.25 mg Documented By: WILD Daptomycin 350 mg/ Sodium (Chloride) 57 mls @ 114 mls/hr IV Q24H [facility] Last Infusion: 08/31/22 20:25 Dose: 0 mls/hr Documented By: AFSANEH Lorazepam (Lorazepam 0.5 Mg Tablet) 0.5 mg PO BEDTIME [facility] Last Admin: 08/31/22 21:08 Dose: 0.5 mg Documented By: AFSANEH Lorazepam (Lorazepam 0.5 Mg Tablet) 0.5 mg PO Q6H PRN PRN Reason: Anxiety Last Admin: 08/31/22 13:20 Dose: 0.5 mg Documented By: DB Losartan Potassium (Losartan Potassium 25 Mg Tablet) 25 mg PO DAILY [facility]; Protocol Last Admin: 08/31/22 08:49 Dose: 25 mg Documented By: DB Omeprazole (Omeprazole 20 Mg Capsule.) 20 mg PO DAILY@0630 [facility] Last Admin: 09/01/22 06:05 Dose: 20 mg Documented By: AFSANEH Ondansetron HCl (Ondansetron Hcl 4 Mg/2 Ml Vial) 4 mg IVPUSH Q8H PRN PRN Reason: Nausea and Vomiting Oxycodone HCl (Oxycodone Hcl Immed Release 5 Mg Tablet) 10 mg PO Q4H [facility] Last Admin: 09/01/22 06:05 Dose: 10 mg Documented By: AFSANEH Pharmacy Consult (Consult Rx Vancomycin Dosing) 1 each MISCELLANE DAILY PRN PRN Reason: Consult order Sodium Chloride (0.9 % Sodium Chloride Flush 3 Ml Syringe) 3 ml IVFLUSH QSHIFT [facility] Last Admin: 08/31/22 19:51 Dose: 3 ml Documented By: AFSANEH Spironolactone (Spironolactone 25 Mg Tablet) 25 mg PO DAILY [facility]; Protocol Last Admin: 08/31/22 08:50 Dose: 25 mg Documented By: DB Labs 09/01/22 05:15 09/01/22 05:15 Labs: Laboratory Results - last 24 hr 09/01/22 09/01/22 05:15 05:15 MCV 101.2 H MCH 33.1 H MCHC 32.7 RDW 12.9 Plt Count 429 H MPV 9.9 Immature Gran % (Auto) 0.5 H Neut % (Auto) 58.0 Lymph % (Auto) 30.5 [place] % (Auto) 9.4 Eos % (Auto) 1.1 Baso % (Auto) 0.5 Lymph # (Auto) 2.0 [place] # (Auto) 0.6 Eos # (Auto) 0.1 Baso # (Auto) 0.0 Abs Immat Gran (auto) 0.03 Absolute Neuts (auto) 3.9 Absolute Nucleated RBC 0.000 Nucleated RBC % (auto) 0.0 Anion Gap 12 Estim Creat Clear Calc 63.2 Estimated GFR 59 Fasting Glucose 99 Calcium 8.2 L Microbiology Microbiology Results: Microbiology 08/30/22 09:09 Blood Culture - Preliminary Blood - Arterial No growth after 24 hours. 08/30/22 09:03 Blood Culture - Preliminary Blood - Arterial No growth after 24 hours. Assessment and Plan (1) Closed left trimalleolar fracture: Status: Resolved (2) Surgical wound breakdown: Status: Acute Plan 72-year-old female with history of COPD, HFpEF, HTN who presents to the emergency department after a fall found to have left trimalleolar fracture status post reduction left trimalleolar fracture s/p ORIF of ankle 08/13 now Left ankle infection with wound breakdown s/p debridment has wound vac ID recommends 6 weeks of IV dapto PICC line tomorrow Pain control Anemia, chronic disease H&H 8.2/25.3, slightly lower than baseline but consistent with recent surgery Monitor HTN Continue home meds:? Losartan, Coreg, clonidine, BP slight to moderatel, adjust meds PRN COPD Not in acute exacerbation Continue home inhalers HLD Continue statin HFpEF Not in acute exacerbation Continue furosemide and spironolactone Anxiety--Aivan PRN Need for inpatient: pending placement for rehab post ankle surger Time Spent With Patient Time: Total time managing care of this patient today ____ minutes. Quality Stroke Does the patient have a stroke diagnosis?: No VTE Prior VTE?: No VTE Risk Level:: Surgical - very high VTE Device Contraindication: N/A - Device Ordered VTE Drug Contraindication: N/A - Med Ordered
[2022-09-01] MEDS: LORazepam 0.5 MG TABLET PO ×2 (09:00→19:46)
[2022-09-01] MEDS: Atorvastatin Calcium 40 MG TABLET PO (09:01)
[2022-09-01] MEDS: Folic Acid 1 MG TABLET PO (09:01)
[2022-09-01] MEDS: diphenhydrAMINE HCL 25 MG CAPSULE PO (09:01)
[2022-09-01] MEDS: Ferrous Sulfate 324 MG TABLET.DR PO (09:01)
[2022-09-01] MEDS: Losartan Potassium 25 MG TABLET PO (09:01)
[2022-09-01] MEDS: carvediloL 12.5 MG TABLET 37.5 MG PO ×2 (09:01→19:46)
[2022-09-01] MEDS: Enoxaparin Sodium 40 MG/0.4 ML SYRINGE SUBCUT (09:02)
[2022-09-01] MEDS: Cyanocobalamin (Vitamin B-12) 1,000 MCG TABLET 1000 MCG PO (09:02)
[2022-09-01] MEDS: Spironolactone 25 MG TABLET PO (09:02)
[2022-09-01] MEDS: 0.9 % Sodium Chloride Flush 3 ML SYRINGE IVFLUSH ×3 (09:02→22:02)
[2022-09-01 09:10] VITALS: PULSE 74; RESP 17; O2SAT 100
[2022-09-01] MEDS: Fluticasone/Vilanterol 100/25 BLST.W.DEV 1 PUFF INHALE (09:10)
[2022-09-01] MEDS: Acetaminophen 325 MG TABLET 650 MG PO (14:03)
--- NOTE | 2022-09-01 14:56 | PM.PNORT ---
Subjective Subjective Date of Service: 09/01/22 Interval history: POD 3 s/p Left ankle debridement 08/30/22 No overnight events she is resting in bed with blue boot on and prevena intact Patient has been getting out of bed and ambulating on right lower ext to chair and bathroom . She has been able to wash up. denies cp, sob, palpitations. Physical Exam Vital Signs: Vital Signs: Last Vital Signs Temp 96.8 F 09/01/22 07:50 Pulse 74 09/01/22 09:10 Resp 17 09/01/22 09:10 BP 161/73 H 09/01/22 07:50 Pulse Ox 100 09/01/22 07:50 O2 Del Method 09/01/22 07:50 O2 Flow Rate 2 08/30/22 03:43 BMI result Body Mass Index 36.9 Const: General: cooperative, healthy appearing and no acute distress Resp: Effort & Inspection: normal respiratory effort and able to speak in complete sentences Cardio: Rate: regular rate Peripheral pulses: Peripheral pulses 2+ throughout GI: Palpation (GI): Soft to palpation Skin: General skin exam: no rashes or lesions noted Extrem: Other: Left ankle prevena and boot intact. She has mild pain with movement , left ankle NVI. Procedures Date of Service Date of Service: 09/01/22 Progress Note: A&P Assessment and plan (1) Surgical wound breakdown: Status: Acute Assessment and Plan: ID recommends: Would give IV Daptomycin for six weeks as better to give with renal insufficiency. Weekly CK,LFT, creatinine (2) Closed left trimalleolar fracture: Status: Resolved Assessment and Plan: Continue pain mgmnt PT/OT NWB LLE, prevena intact. Keep on at all times Lovenox for dvt ppx qd blood cultures negative-- picc line pending (3) Chronic kidney disease (CKD) stage G3a/A1, moderately decreased glomerular filtration rate (GFR) between 45-59 mL/min/1.73 square meter and albuminuria creatinine ratio less than 30 mg/g: Status: Acute Assessment and Plan: Nephrology recommendation: Pt has stable nonprogressive CKD Unlikely she will need dialysis in her lifetime Hence, I have no objection with her having a PICC placed for antibiotics Plan Dispo pending blood cx and picc line , rehab placement Time Spent With Patient Time: Total time managing care of this patient today ____ minutes. Quality Stroke Does the patient have a stroke diagnosis?: No VTE Prior VTE?: No VTE Risk Level:: Surgical - very high VTE Device Contraindication: N/A - Device Ordered VTE Drug Contraindication: N/A - Med Ordered
[2022-09-01 15:31] VITALS: BP 153/73; PULSE 69; RESP 18; TEMP 36.3; O2SAT 99
[2022-09-01 18:29] LABS: Vancomycin Random 8.9 mcg/mL (15-20)
[2022-09-01] MEDS: cloNIDine HCL 0.2 MG TABLET PO (19:46)
[2022-09-01 20:26] VITALS: BP 129/67; PULSE 70; RESP 16; TEMP 36.7; O2SAT 100
[2022-09-02] VITALS (7 sets, daily range): BP systolic 134–147; BP diastolic 62–69; PULSE 65–78; RESP 16–18; TEMP 36.3–37.1; O2SAT 98–100
[2022-09-02] MEDS: oxyCODONE HCl Immed Release 5 MG TABLET 10 MG PO ×6 (02:13→22:12)
[2022-09-02] MEDS: Omeprazole 20 MG CAPSULE.DR PO (05:32)
[2022-09-02 06:13] LABS: MANUAL DIFF FLAG NO
[2022-09-02 06:22] LABS: Basophils Percent Auto 0.4 % (0-2); Eosinophils Absolute Auto 0.1 X10*3/uL (0.0-0.4); Eosinophils Percent Auto 1.3 % (0-4); Hematocrit 27.1 % (37.0-47.0); Hemoglobin 8.7 g/dl (12.0-16.0); Imm Gran Abs Auto 0.03 X10*3/uL (0.00-0.03); Imm Gran Pct Auto 0.4 % (0.0-0.4); Lymphocytes Absolute Auto 2.1 X10*3/uL (1.2-4.9); Lymphocytes Percent Auto 27.2 % (20-40); Mean Corpuscular HGB Conc 32.1 g/dl (31.0-35.0); Mean Corpuscular Volume 102.7 fL (80.0-98.0); Mean Platelet Volume 9.9 fL (9.4-12.3); Monocytes Absolute Auto 0.7 X10*3/uL (0.1-1.2); Monocytes Percent Auto 9.6 % (2-11); Neutrophils Absolute Auto 4.7 x10*3/uL (2.0-8.3); Neutrophils Percent Auto 61.1 % (45-73); Platelet Count 421 X10*3/uL (160-400); Red Blood Count 2.64 X10*6/uL (4.20-5.50); Red Cell Distribution Width 13.2 % (11.0-16.0); White Blood Count 7.7 X10*3/uL (4.8-10.8)
[2022-09-02 06:40] LABS: Anion Gap 14 (12-20); Blood Urea Nitrogen 15 mg/dL (9-16); Calcium 8.6 mg/dL (8.4-10.2); Carbon Dioxide 27 mmol/L (22-29); Chloride 106 mmol/L (96-108); Creatinine Clr Calc Pharmacy 68.3; Estimated Glomerular Filt Rate > 60; Glucose Fasting 96 mg/dL (60-99); Potassium 4.1 mmol/L (3.3-5.1); Sodium 143 mmol/L (135-145)
[2022-09-02] MEDS: Enoxaparin Sodium 40 MG/0.4 ML SYRINGE SUBCUT (07:10)
[2022-09-02] MEDS: 0.9 % Sodium Chloride Flush 3 ML SYRINGE IVFLUSH (07:10)
--- NOTE | 2022-09-02 07:48 | PM.PNORT ---
Subjective Subjective Date of Service: 09/02/22 Interval history: POD 4 s/p Left ankle debridement 08/30/22 No overnight events she is resting in bed with blue boot on and prevena intact Patient has been getting out of bed and ambulating on right lower ext to chair and bathroom . She has been able to wash up. denies cp, sob, palpitations. Physical Exam Vital Signs: Vital Signs: Last Vital Signs Temp 97.4 F 09/02/22 03:32 Pulse 65 09/02/22 03:32 Resp 16 09/02/22 03:32 BP 140/62 H 09/02/22 03:32 Pulse Ox 99 09/02/22 03:32 O2 Del Method 09/02/22 03:32 O2 Flow Rate 2 08/30/22 03:43 BMI result Body Mass Index 36.9 Const: General: cooperative, healthy appearing and no acute distress Resp: Effort & Inspection: normal respiratory effort and able to speak in complete sentences Cardio: Rate: regular rate Peripheral pulses: Peripheral pulses 2+ throughout GI: Palpation (GI): Soft to palpation Skin: General skin exam: no rashes or lesions noted Extrem: Other: Left ankle prevena and boot intact. She has mild pain with movement , left ankle NVI. Procedures Date of Service Date of Service: 09/02/22 Progress Note: A&P Assessment and plan (1) Surgical wound breakdown: Status: Acute Assessment and Plan: ID recommends: Would give IV Daptomycin for six weeks as better to give with renal insufficiency. Weekly CK,LFT, creatinine (2) Closed left trimalleolar fracture: Status: Resolved Assessment and Plan: Continue pain mgmnt PT/OT NWB LLE, prevena intact. Keep on at all times Lovenox for dvt ppx qd blood cultures negative x2 -- picc line pending (3) Chronic kidney disease (CKD) stage G3a/A1, moderately decreased glomerular filtration rate (GFR) between 45-59 mL/min/1.73 square meter and albuminuria creatinine ratio less than 30 mg/g: Status: Acute Assessment and Plan: Nephrology recommendation: Pt has stable nonprogressive CKD Unlikely she will need dialysis in her lifetime Hence, I have no objection with her having a PICC placed for antibiotics Plan Dispo pending blood cx and picc line , rehab placement Time Spent With Patient Time: Total time managing care of this patient today ____ minutes. Quality Stroke Does the patient have a stroke diagnosis?: No VTE Prior VTE?: No VTE Risk Level:: Surgical - very high VTE Device Contraindication: N/A - Device Ordered VTE Drug Contraindication: N/A - Med Ordered
[2022-09-02] MEDS: Fluticasone/Vilanterol 100/25 BLST.W.DEV 1 PUFF INHALE (08:16)
[2022-09-02] MEDS: LORazepam 0.5 MG TABLET PO ×2 (09:03→22:14)
[2022-09-02] MEDS: diphenhydrAMINE HCL 25 MG CAPSULE PO (09:04)
[2022-09-02] MEDS: Furosemide 20 MG TABLET PO (09:04)
[2022-09-02] MEDS: Ferrous Sulfate 324 MG TABLET.DR PO (09:04)
[2022-09-02] MEDS: Cyanocobalamin (Vitamin B-12) 1,000 MCG TABLET 1000 MCG PO (09:04)
[2022-09-02] MEDS: Losartan Potassium 25 MG TABLET PO (09:05)
[2022-09-02] MEDS: Spironolactone 25 MG TABLET PO (09:05)
[2022-09-02] MEDS: carvediloL 12.5 MG TABLET 37.5 MG PO ×2 (09:05→22:12)
[2022-09-02] MEDS: Folic Acid 1 MG TABLET PO (09:05)
[2022-09-02] MEDS: Atorvastatin Calcium 40 MG TABLET PO (09:05)
--- NOTE | 2022-09-02 10:07 | P.PNIM_ITS ---
Subjective Subjective Date of Service: 09/02/22 Interval History: f/u on wound infection, pain overall is doing better today, some pain this morning but is better now Review of Systems Left ankle pain step nontender Denies chest pain/pressure No shortness of breath No cough Denies fever/chills, nausea, vomiting, abdominal pain Physical Exam Vital Signs: Vital Signs: Last Vital Signs Temp 97.3 F 09/02/22 08:00 Pulse 67 09/02/22 08:17 Resp 16 09/02/22 08:17 BP 147/69 H 09/02/22 08:00 Pulse Ox 99 09/02/22 08:00 O2 Del Method 09/02/22 08:00 O2 Flow Rate 2 08/30/22 03:43 BMI result Body Mass Index 36.9 Const: Other: General: AO X 3, no acute distress Resp: CTA bilateral CVS: S1,S2,RRR GI: +BS, NT, no distention Skin: left ankle wound van in place Neuro: motor grossly intact Psych: appropriate affect Objective Data Active Medications Acetaminophen (Acetaminophen 325 Mg Tablet) 650 mg PO Q4H PRN PRN Reason: Pain, Severe (Pain Scale 7-10) Last Admin: 09/01/22 14:03 Dose: 650 mg Documented By: TAMERA Albuterol Sulfate (Albuterol Sulfate 90 Mcg 8 Gm Inhaler) 2 puff INHALE Q6H PRN PRN Reason: Respiratory Distress Atorvastatin Calcium (Atorvastatin Calcium 40 Mg Tablet) 40 mg PO DAILY [facility] Last Admin: 09/02/22 09:05 Dose: 40 mg Documented By: KIMBERLEY Carvedilol (Carvedilol 12.5 Mg Tablet) 37.5 mg PO BID [facility]; Protocol Last Admin: 09/02/22 09:05 Dose: 37.5 mg Documented By: KIMBERLEY Clonidine HCl (Clonidine Hcl 0.2 Mg Tablet) 0.2 mg PO BEDTIME [facility]; Protocol Last Admin: 09/01/22 19:46 Dose: 0.2 mg Documented By: MARIE Cyanocobalamin (Cyanocobalamin (Vitamin B-12) 1,000 Mcg Tablet) 1,000 mcg PO DAILY [facility] Last Admin: 09/02/22 09:04 Dose: 1,000 mcg Documented By: KIMBERLEY Diphenhydramine HCl (Diphenhydramine Hcl 25 Mg Capsule) 25 mg PO DAILY [facility] Last Admin: 09/02/22 09:04 Dose: 25 mg Documented By: KIMBERLEY Enoxaparin Sodium (Enoxaparin Sodium 40 Mg/0.4 Ml Syringe) 40 mg SUBCUT Q24H [facility] Last Admin: 09/02/22 07:10 Dose: 40 mg Documented By: KIMBERLEY Epinephrine (Epinephrine 1 Mg/Ml Vial) 0.3 mg IM Q20M PRN PRN Reason: anaphylaxis Ferrous Sulfate (Ferrous Sulfate 324 Mg Tablet.Dr) 324 mg PO DAILY [facility] Last Admin: 09/02/22 09:04 Dose: 324 mg Documented By: KIMBERLEY Fluticasone/Vilanterol (Fluticasone/Vilanterol 100/25 Blst.W.Dev) 1 puff INHALE RDAILY [facility] Last Admin: 09/02/22 08:16 Dose: 1 puff Documented By: TAYLER Folic Acid (Folic Acid 1 Mg Tablet) 1 mg PO DAILY [facility] Last Admin: 09/02/22 09:05 Dose: 1 mg Documented By: KIMBERLEY Furosemide (Furosemide 20 Mg Tablet) 20 mg PO MOWEFR@0900 [facility]; Protocol Last Admin: 09/02/22 09:04 Dose: 20 mg Documented By: KIMBERLEY Hydromorphone HCl (Hydromorphone Hcl 0.5 Mg/0.5 Ml Syringe) 0.25 mg IVPUSH Q4H PRN; Protocol PRN Reason: Pain, Severe (Pain Scale 7-10) Last Admin: 08/29/22 16:05 Dose: 0.25 mg Documented By: WILD Daptomycin 350 mg/ Sodium (Chloride) 57 mls @ 114 mls/hr IV Q24H [facility] Last Infusion: 09/01/22 21:17 Dose: 0 mls/hr Documented By: MARIE Lorazepam (Lorazepam 0.5 Mg Tablet) 0.5 mg PO BEDTIME [facility] Last Admin: 09/01/22 19:46 Dose: 0.5 mg Documented By: MARIE Lorazepam (Lorazepam 0.5 Mg Tablet) 0.5 mg PO Q6H PRN PRN Reason: Anxiety Last Admin: 09/02/22 09:03 Dose: 0.5 mg Documented By: KIMBERLEY Losartan Potassium (Losartan Potassium 25 Mg Tablet) 25 mg PO DAILY [facility]; Pr otocol Last Admin: 09/02/22 09:05 Dose: 25 mg Documented By: KIMBERLEY Omeprazole (Omeprazole 20 Mg Capsule.Dr) 20 mg PO DAILY@0630 [facility] Last Admin: 09/02/22 05:32 Dose: 20 mg Documented By: RASHI Ondansetron HCl (Ondansetron Hcl 4 Mg/2 Ml Vial) 4 mg IVPUSH Q8H PRN PRN Reason: Nausea and Vomiting Oxycodone HCl (Oxycodone Hcl Immed Release 5 Mg Tablet) 10 mg PO Q4H [facility] Last Admin: 09/02/22 09:04 Dose: 10 mg Documented By: KIMBERLEY Sodium Chloride (0.9 % Sodium Chloride Flush 3 Ml Syringe) 3 ml IVFLUSH QSHIFT [facility] Last Admin: 09/02/22 07:10 Dose: 3 ml Documented By: KIMBERLEY Spironolactone (Spironolactone 25 Mg Tablet) 25 mg PO DAILY [facility]; Protocol Last Admin: 09/02/22 09:05 Dose: 25 mg Documented By: KIMBERLEY Labs 09/02/22 06:04 09/02/22 06:04 Labs: Laboratory Results - last 24 hr 09/01/22 09/02/22 09/02/22 18:03 06:04 06:04 MCV 102.7 H MCH 33.0 MCHC 32.1 RDW 13.2 Plt Count 421 H MPV 9.9 Immature Gran % (Auto) 0.4 Neut % (Auto) 61.1 Lymph % (Auto) 27.2 [place] % (Auto) 9.6 Eos % (Auto) 1.3 Baso % (Auto) 0.4 Lymph # (Auto) 2.1 [place] # (Auto) 0.7 Eos # (Auto) 0.1 Baso # (Auto) 0.0 Abs Immat Gran (auto) 0.03 Absolute Neuts (auto) 4.7 Absolute Nucleated RBC 0.000 Nucleated RBC % (auto) 0.0 Anion Gap 14 Estim Creat Clear Calc 68.3 Estimated GFR > 60 Fasting Glucose 96 Calcium 8.6 Random Vancomycin 8.9 L Microbiology Microbiology Results: Microbiology 08/30/22 09:09 Blood Culture - Preliminary Blood - Arterial No growth after 48 hours. 08/30/22 09:03 Blood Culture - Preliminary Blood - Arterial No growth after 48 hours. Assessment and Plan (1) Closed left trimalleolar fracture: Status: Resolved (2) Surgical wound breakdown: Status: Acute Plan 72-year-old female with history of COPD, HFpEF, HTN who presents to the emergency department after a fall found to have left trimalleolar fracture status post reduction Left trimalleolar fracture s/p ORIF of ankle 08/13 now Left ankle infection with wound breakdown s/p debridment has wound vac ID recommends 6 weeks of IV dapto PICC line today Pain control Anemia, chronic disease H&H 8.7/27.1, slightly better HTN Continue home meds:? Losartan, Coreg, clonidine, BP slight to moderatel, adjust meds PRN COPD Not in acute exacerbation Continue home inhalers HLD Continue statin HFpEF Not in acute exacerbation Continue furosemide and spironolactone Anxiety--Aivan PRN Chronic kidney disease (CKD) stage G3a/A1--stable withou progression and Nephro ok with PICC line Need for inpatient: defer to surgery Time Spent With Patient Time: Total time managing care of this patient today ____ minutes. Quality Stroke Does the patient have a stroke diagnosis?: No VTE Prior VTE?: No VTE Risk Level:: Surgical - very high VTE Device Contraindication: N/A - Device Ordered VTE Drug Contraindication: N/A - Med Ordered
[2022-09-02] MEDS: Acetaminophen 325 MG TABLET 650 MG PO (10:19)
--- NOTE | 2022-09-02 13:10 | P.PICC_ITS ---
PICC Line Insertion NPICC Diagnosis: ANKLE INFECTION[] Indication: [NURSING HOME ANTIBX] Pertinent Labs: [REVIEWED] Technique: Following informed consent including risks, benefits and alternatives and using sterile technique including cap and mask, sterile gown, glove and drape, the [LEFT] arm was prepped and draped in the usual sterile fashion of full barrier technique with CHG. Following completion of [place] Protocol the skin and soft tissues were anesthetized with 1% Lidocaine plain. Using ultrasound guidance, [LEFT BASILIC ] vein access was obtained AND ACCESS ON FIRST ATTEMPT. Over an 0.018 wire through peel-away sheath, a [4 FR SINGLE LUMEN PASV] PICC line was positioned. Catheter length is [47CM] internal length, [0CM] external length, for a total trimmed length of [47CM]. The procedure was performed in [RM 272]. Tip verification was performed by Maxi May with Sherlock 3CG. Tip located in SVC. Ultrasound was used to document v ein patency and for needle entry. A formal ultrasound picture and cardiac rhythm strip was recorded. [employer] Station Assistant has released the line for use and it is currently dressed with a StatLock, Tegaderm, and CHG disc. Verification has been performed for blood return and line patency. Arm Circumference: [33CM] Equipment: [[employer] ] Catheter Type: [4 FR SINGLE LUMEN PASV PICC ] Lot #: [[id number]]
[2022-09-02] MEDS: 0.9 % Sodium Chloride Flush 10 ML SYRINGE 5 ML IVFLUSH (15:20)
--- NOTE | 2022-09-02 16:17 | MHC.CM.PN ---
CM MET W/PT BRIEFLY TO FOLLOW-UP ON SNF PREFERENCES HOWEVER PT REPORTS SHE WILL SPEAKING TO [employer] TO DISCUSS, PT IS AWARE THAT [facility] DOES NOT TAKE HER INSURANCE.
[2022-09-02] MEDS: cloNIDine HCL 0.2 MG TABLET PO (22:12)
[2022-09-02] MEDS: Albuterol Sulfate 90 MCG 8 GM INHALER 2 PUFF INHALE (23:28)
[2022-09-03] MEDS: oxyCODONE HCl Immed Release 5 MG TABLET 10 MG PO ×5 (02:19→20:28)
[2022-09-03 04:00] VITALS: BP 138/66; PULSE 67; RESP 18; TEMP 36.2; O2SAT 98
[2022-09-03] MEDS: Omeprazole 20 MG CAPSULE.DR PO (06:12)
[2022-09-03 08:00] VITALS: BP 137/72; PULSE 67; RESP 18; TEMP 36.1; O2SAT 100
[2022-09-03] MEDS: Fluticasone/Vilanterol 100/25 BLST.W.DEV 1 PUFF INHALE (08:01)
[2022-09-03 08:03] VITALS: PULSE 84; RESP 16; O2SAT 99
--- NOTE | 2022-09-03 09:10 | MHC.CM.PN ---
EMR REVIEWED, PT REMAINS MEDICALLY CLEARED FOR D/C, CM MET W/PT TO REVIEW SNF OPTIONS THAT SHE WAS GOING TO DISCUSS W/FAMILY HOWEVER PT NOT ACCEPTING THAT SHE IS UNABLE TO GO TO [facility] AND INSISTING SHE CAN STILL GO AND NOT GIVE CM ALTERNATE SNF PREFERENCES. PT DISMISSED CM FROM ROOM SO SHE COULD HAVE A FEW SIPS OF TEA, CM DID LET PT KNOW ONCE HER INSURANCE, [employer] STOPS PAYING FOR HER HOSPITAL STAY SHE WILL BE RESPONSIBLE FOR STAY, PT AWARE OF APPROXIMATE DAILY COST. CM CONTACTED [facility] LIAISON WHO CONFIRMED PT WAS DECLINED AND THAT HER IV ABX AND WOUND WOULD NOT QUALIFY HER, THAT SHE IS TOO HIGH LEVEL SHE CAN DO TOO MUCH ON HER OWN AND THAT HER INSURANCE DECLINED HER FOR INITIAL FX AND SHE SHOULD TRY A SNF. CM WILL REVISIT W/PT LATER IN SHIFT.
[2022-09-03 10:24] VITALS: PULSE 84
[2022-09-03] MEDS: Folic Acid 1 MG TABLET PO (11:03)
[2022-09-03] MEDS: Ferrous Sulfate 324 MG TABLET.DR PO (11:03)
[2022-09-03] MEDS: diphenhydrAMINE HCL 25 MG CAPSULE PO (11:03)
[2022-09-03] MEDS: Spironolactone 25 MG TABLET PO (11:04)
[2022-09-03] MEDS: Cyanocobalamin (Vitamin B-12) 1,000 MCG TABLET 1000 MCG PO (11:04)
[2022-09-03] MEDS: Losartan Potassium 25 MG TABLET PO (11:04)
[2022-09-03] MEDS: 0.9 % Sodium Chloride Flush 3 ML SYRINGE IVFLUSH ×2 (11:05→16:09)
[2022-09-03] MEDS: Atorvastatin Calcium 40 MG TABLET PO (11:05)
[2022-09-03] MEDS: Enoxaparin Sodium 40 MG/0.4 ML SYRINGE SUBCUT (11:05)
[2022-09-03] MEDS: carvediloL 12.5 MG TABLET 37.5 MG PO ×2 (11:09→20:44)
--- NOTE | 2022-09-03 14:06 | HO.PM.IMPN ---
Subjective Subjective Date of Service: 09/03/22 Interval History: No acute issues overnight. Tolerant of wound VAC. Review of Systems Denies chest pain Denies shortness of breath Denies nausea vomiting diarrhea Denies fever and chills Physical Exam Vital Signs: Vital Signs: Last Vital Signs Temp 96.9 F 09/03/22 08:00 Pulse 84 09/03/22 10:24 Resp 16 09/03/22 08:03 BP 137/72 09/03/22 08:00 Pulse Ox 100 09/03/22 08:00 O2 Del Method 09/03/22 08:00 O2 Flow Rate 2 09/03/22 04:00 BMI result Body Mass Index 36.9 Const: Other: No acute distress Resp: Other: Clear to auscultation bilaterally no rales rhonchi or wheezes Cardio: Other: No S4; positive S1-S2; no S3 murmurs rubs or gallops GI: Other: Soft nontender nondistended normoactive bowel sounds Extrem: Other: Wound VAC to left ankle Objective Data Active Medications Acetaminophen (Acetaminophen 325 Mg Tablet) 650 mg PO Q4H PRN PRN Reason: Pain, Severe (Pain Scale 7-10) Last Admin: 09/02/22 10:19 Dose: 650 mg Documented By: KIMBERLEY Albuterol Sulfate (Albuterol Sulfate 90 Mcg 8 Gm Inhaler) 2 puff INHALE Q6H PRN PRN Reason: Respiratory Distress Last Admin: 09/02/22 23:28 Dose: 2 puff Documented By: LEILA Atorvastatin Calcium (Atorvastatin Calcium 40 Mg Tablet) 40 mg PO DAILY COUNT INCLUDES [facility] Last Admin: 09/03/22 11:05 Dose: 40 mg Documented By: VIDHI Carvedilol (Carvedilol 12.5 Mg Tablet) 37.5 mg PO BID COUNT INCLUDES THE [facility]; Protocol Last Admin: 09/03/22 11:09 Dose: 37.5 mg Documented By: VIDHI Clonidine HCl (Clonidine Hcl 0.2 Mg Tablet) 0.2 mg PO BEDTIME COUNT INCLUDES THE [facility]; Protocol Last Admin: 09/02/22 22:12 Dose: 0.2 mg Documented By: MARIE Cyanocobalamin (Cyanocobalamin (Vitamin B-12) 1,000 Mcg Tablet) 1,000 mcg PO DAILY COUNT INCLUDES THE [facility] Last Admin: 09/03/22 11:04 Dose: 1,000 mcg Documented By: VIDHI Diphenhydramine HCl (Diphenhydramine Hcl 25 Mg Capsule) 25 mg PO DAILY COUNT INCLUDES THE [facility] Last Admin: 09/03/22 11:03 Dose: 25 mg Documented By: VIDHI Enoxaparin Sodium (Enoxaparin Sodium 40 Mg/0.4 Ml Syringe) 40 mg SUBCUT Q24H COUNT INCLUDES THE [facility] Last Admin: 09/03/22 11:05 Dose: 40 mg Documented By: VIDHI Epinephrine (Epinephrine 1 Mg/Ml Vial) 0.3 mg IM Q20M PRN PRN Reason: anaphylaxis Ferrous Sulfate (Ferrous Sulfate 324 Mg Tablet.Dr) 324 mg PO DAILY COUNT INCLUDES [facility] Last Admin: 09/03/22 11:03 Dose: 324 mg Documented By: VIDHI Fluticasone/Vilanterol (Fluticasone/Vilanterol 100/25 Blst.W.Dev) 1 puff INHALE RDAILY COUNT INCLUDES THE [facility] Last Admin: 09/03/22 08:01 Dose: 1 puff Documented By: BERNICE Folic Acid (Folic Acid 1 Mg Tablet) 1 mg PO DAILY COUNT INCLUDES THE [facility] Last Admin: 09/03/22 11:03 Dose: 1 mg Documented By: VIDHI Furosemide (Furosemide 20 Mg Tablet) 20 mg PO MOWEFR@0900 COUNT INCLUDES THE [facility]; Protocol Last Admin: 09/02/22 09:04 Dose: 20 mg Documented By: KIMBERLEY Hydromorphone HCl (Hydromorphone Hcl 0.5 Mg/0.5 Ml Syringe) 0.25 mg IVPUSH Q4H PRN; Protocol PRN Reason: Pain, Severe (Pain Scale 7-10) Last Admin: 08/29/22 16:05 Dose: 0.25 mg Documented By: WILD Daptomycin 350 mg/ Sodium (Chloride) 57 mls @ 114 mls/hr IV Q24H COUNT INCLUDES THE [facility] Last Infusion: 09/02/22 23:45 Dose: 0 mls/hr Documented By: MARIE Acetaminophen (Ofirmev) 1,000 mg in 100 mls @ 400 mls/hr IV Q6H COUNT INCLUDES THE [facility] Stop: 09/04/22 06:59 Lorazepam (Lorazepam 0.5 Mg Tablet) 0.5 mg PO Q6H PRN PRN Reason: Anxiety Last Admin: 09/02/22 22:14 Dose: 0.5 mg Documented By: MARIE Lorazepam (Lorazepam 0.5 Mg Tablet) 0.5 mg PO BEDTIME COUNT INCLUDES [facility] Losartan Potassium (Losartan Potassium 25 Mg Tablet) 25 mg PO DAILY COUNT INCLUDES THE [facility]; Protocol Last Admin: 09/03/22 11:04 Dose: 25 mg Documented By: VIDHI Omeprazole (Omeprazole 20 Mg Capsule.Dr) 20 mg PO DAILY@0630 COUNT INCLUDES [facility] Last Admin: 09/03/22 06:12 Dose: 20 mg Documented By: MARIE Ondansetron HCl (Ondansetron Hcl 4 Mg/2 Ml Vial) 4 mg IVPUSH Q8H PRN PRN Reason: Nausea and Vomiting Oxycodone HCl (Oxycodone Hcl Immed Release 5 Mg Tablet) 10 mg PO Q4H COUNT INCLUDES THE [facility] Last Admin: 09/03/22 11:02 Dose: 10 mg Documented By: VIDHI Sodium Chloride (0.9 % Sodium Chloride Flush 3 Ml Syringe) 3 ml IVFLUSH QSHIFT COUNT INCLUDES THE [facility] Last Admin: 09/03/22 11:05 Dose: 3 ml Documented By: VIDHI Spironolactone (Spironolactone 25 Mg Tablet) 25 mg PO DAILY COUNT INCLUDES THE [facility]; Protocol Last Admin: 09/03/22 11:04 Dose: 25 mg Documented By: VIDHI Labs 09/02/22 06:04 09/02/22 06:04 Assessment and Plan (1) Wound cellulitis: Status: Acute (2) HTN (hypertension): Status: Acute (3) (HFpEF) heart failure with preserved ejection fraction: Status: Acute (4) Chronic kidney disease (CKD) stage G3a/A1, moderately decreased glomerular filtration rate (GFR) between 45-59 mL/min/1.73 square meter and albuminuria creatinine ratio less than 30 mg/g: Status: Acute Plan 72-year-old female with history of COPD, HFpEF, HTN who presents to the emergency department after a fall found to have left trimalleolar fracture status post reduction 1.Left trimalleolar fracture s/p ORIF of ankle 08/13 - wound vac -surgery to change wound VAC 2. Wound cellulitis -daptomycyin () -arranging outpatient treatment 3.Anemia; chronic disease -follow clinically 4.HTN -acceptable control on current therapies -adjust as indicated 5.HFpEF -well compensated -Continue current therapies 6.Chronic kidney disease (CKD) stage G3a/A1 -at baseline -follow renals/divalents Patient will require ongoing hospitalization for monitoring of wound VAC and IV daptomycin until acceptable disposition Time Spent With Patient Time: Total time managing care of this patient today ____ minutes. Quality Stroke Does the patient have a stroke diagnosis?: No VTE Prior VTE?: No VTE Risk Level:: Surgical - very high VTE Device Contraindication: N/A - Device Ordered VTE Drug Contraindication: N/A - Med Ordered
--- NOTE | 2022-09-03 14:26 | MHC.CM.PN ---
PER HOSPITALIST PT AWARE HER CHOICES WILL BE STR VS HOME W/SERVICES, PT NOT READY TO MAKE A FINAL DECISION SHE WOULD LIKE A MEETING W/ORTHO PA, ORTHO SURGEON AND OTHERS PRIOR TO MAKING FINAL DECISION, W/ENCOURAGEMENT PT WAS AGREEABLE TO INFORMATIONAL W/OPTION CARE LIAISON IN ANTIC SHE MAY GO HOME W/SERVICES, PER LIAISON INFORMATIONAL WENT WELL AND ARE CONFIDENT PT WILL DO WELL AT HOME. CM WILL CONT TO FOLLOW FOR FINAL D/C PLAN
[2022-09-03 15:14] VITALS: BP 133/63; PULSE 78; RESP 17; TEMP 36.2; O2SAT 99
--- NOTE | 2022-09-03 15:19 | PC.NURSE ---
Report given to TAMIKA Navarro assuming care of patient at this time.
[2022-09-03] MEDS: Acetaminophen 1,000 MG/100 ML PIGGYBACK 400 MG IV ×2 (16:08→21:50)
[2022-09-03] MEDS: Heparin Sodium,Porcine Flush 50 UNITS, 0.9 % Sodium Chloride Flush 5 ML IVFLUSH (16:18)
[2022-09-03 20:00] VITALS: BP 160/87; PULSE 83; RESP 17; TEMP 36.3; O2SAT 100
[2022-09-03] MEDS: LORazepam 0.5 MG TABLET PO (20:44)
[2022-09-03] MEDS: cloNIDine HCL 0.2 MG TABLET PO (20:44)
[2022-09-04] MEDS: traZODone HCL 25 MG HALFTAB PO (00:14)
[2022-09-04] MEDS: Heparin Sodium,Porcine Flush 50 UNITS, 0.9 % Sodium Chloride Flush 5 ML IVFLUSH ×3 (00:15→17:14)
[2022-09-04] MEDS: oxyCODONE HCl Immed Release 5 MG TABLET 10 MG PO ×6 (00:28→20:36)
[2022-09-04] MEDS: Acetaminophen 1,000 MG/100 ML PIGGYBACK 400 MG IV ×2 (03:59→10:26)
[2022-09-04 04:00] VITALS: BP 157/76; PULSE 69; RESP 18; TEMP 36.1; O2SAT 99
[2022-09-04] MEDS: Omeprazole 20 MG CAPSULE.DR PO (06:28)
[2022-09-04 07:26] VITALS: BP 142/67; PULSE 65; RESP 18; TEMP 36.1; O2SAT 100
[2022-09-04] MEDS: Fluticasone/Vilanterol 100/25 BLST.W.DEV 1 PUFF INHALE (08:47)
[2022-09-04] MEDS: Folic Acid 1 MG TABLET PO (08:49)
[2022-09-04] MEDS: Ferrous Sulfate 324 MG TABLET.DR PO (08:49)
[2022-09-04] MEDS: diphenhydrAMINE HCL 25 MG CAPSULE PO (08:49)
[2022-09-04] MEDS: Spironolactone 25 MG TABLET PO (08:49)
[2022-09-04] MEDS: Furosemide 20 MG TABLET PO (08:49)
[2022-09-04] MEDS: Atorvastatin Calcium 40 MG TABLET PO (08:49)
[2022-09-04] MEDS: carvediloL 12.5 MG TABLET 37.5 MG PO ×2 (08:49→19:58)
[2022-09-04] MEDS: Losartan Potassium 25 MG TABLET PO (08:49)
[2022-09-04] MEDS: Cyanocobalamin (Vitamin B-12) 1,000 MCG TABLET 1000 MCG PO (08:50)
[2022-09-04] MEDS: Enoxaparin Sodium 40 MG/0.4 ML SYRINGE SUBCUT (08:51)
--- NOTE | 2022-09-04 09:24 | MHC.CLN ---
NUTRITION INTAKE APPEARS TO BE 50-100%. INCREASING DIET KCALS FROM 1200 TO 1800 KCALS DUE TO INCREASED NUTRITION NEEDS POST SURGERY.
[2022-09-04 11:04] VITALS: BP 142/67; PULSE 65; O2SAT 100
--- NOTE | 2022-09-04 12:23 | MHC.CM.PN ---
CM MET W/PT, PT REPORTS SHE WILL NOT RETURN TO [facility] OVERHEARING STAFF YELLING AND SWEARING AT PT'S ON OVERNIGHT SHIFT WELL PREVIOUS COMPLAINTS. PT AGREEABLE TO [facility] AND [facility], REFERRAL UPDATED AND SENT TO BOTH HOWEVER [facility] DOES NOT HAVE A BED AVAILABLE AT THIS TIME, CM ENQUIRING TO SEE IF THEY WILL HAVE A BED IN AM.
--- NOTE | 2022-09-04 13:07 | HO.PM.IMPN ---
Subjective Subjective Date of Service: 09/04/22 Interval History: No acute issues overnight. Remains afebrile Review of Systems Denies chest pain Denies shortness of breath Denies nausea vomiting diarrhea Denies fever and chills Physical Exam Vital Signs: Vital Signs: Last Vital Signs Temp 97.0 F 09/04/22 07:26 Pulse 65 09/04/22 11:04 Resp 18 09/04/22 07:26 BP 142/67 H 09/04/22 11:04 Pulse Ox 100 09/04/22 11:04 O2 Del Method 09/04/22 07:26 O2 Flow Rate 2 09/04/22 07:26 BMI result Body Mass Index 36.9 Const: Other: No acute distress Resp: Other: Clear to auscultation bilaterally no rales rhonchi or wheezes Cardio: Other: No S4; positive S1-S2; no S3 murmurs rubs or gallops GI: Other: Soft nontender nondistended normoactive bowel sounds Extrem: Other: Wound VAC to left ankle Objective Data Active Medications Acetaminophen (Acetaminophen 325 Mg Tablet) 650 mg PO Q4H PRN PRN Reason: Pain, Severe (Pain Scale 7-10) Last Admin: 09/02/22 10:19 Dose: 650 mg Documented By: KIMBERLEY Albuterol Sulfate (Albuterol Sulfate 90 Mcg 8 Gm Inhaler) 2 puff INHALE Q6H PRN PRN Reason: Respiratory Distress Last Admin: 09/02/22 23:28 Dose: 2 puff Documented By: LEILA Atorvastatin Calcium (Atorvastatin Calcium 40 Mg Tablet) 40 mg PO DAILY [facility] Last Admin: 09/04/22 08:49 Dose: 40 mg Documented By: EMILY Carvedilol (Carvedilol 12.5 Mg Tablet) 37.5 mg PO BID [facility]; Protocol Last Admin: 09/04/22 08:49 Dose: 37.5 mg Documented By: EMILY Clonidine HCl (Clonidine Hcl 0.2 Mg Tablet) 0.2 mg PO BEDTIME [facility]; Protocol Last Admin: 09/03/22 20:44 Dose: 0.2 mg Documented By: RAUL Heparin Sodium (Porcine) 50 (units/ Sodium Chloride 5 ml) 0 units IVFLUSH QSHIFT [facility] Last Admin: 09/04/22 08:52 Dose: 50 unit Documented By: EMILY Cyanocobalamin (Cyanocobalamin (Vitamin B-12) 1,000 Mcg Tablet) 1,000 mcg PO DAILY [facility] Last Admin: 09/04/22 08:50 Dose: 1,000 mcg Documented By: EMILY Diphenhydramine HCl (Diphenhydramine Hcl 25 Mg Capsule) 25 mg PO DAILY [facility] Last Admin: 09/04/22 08:49 Dose: 25 mg Documented By: EMILY Enoxaparin Sodium (Enoxaparin Sodium 40 Mg/0.4 Ml Syringe) 40 mg SUBCUT Q24H [facility] Last Admin: 09/04/22 08:51 Dose: 40 mg Documented By: EMILY Epinephrine (Epinephrine 1 Mg/Ml Vial) 0.3 mg IM Q20M PRN PRN Reason: anaphylaxis Ferrous Sulfate (Ferrous Sulfate 324 Mg Tablet.) 324 mg PO DAILY [facility] Last Admin: 09/04/22 08:49 Dose: 324 mg Documented By: EMILY Fluticasone/Vilanterol (Fluticasone/Vilanterol 100/25 Blst.W.Dev) 1 puff INHALE RDAILY [facility] Last Admin: 09/04/22 08:47 Dose: 1 puff Documented By: ASHER Folic Acid (Folic Acid 1 Mg Tablet) 1 mg PO DAILY [facility] Last Admin: 09/04/22 08:49 Dose: 1 mg Documented By: EMILY Furosemide (Furosemide 20 Mg Tablet) 20 mg PO MOWEFR@0900 [facility]; Protocol Last Admin: 09/04/22 08:49 Dose: 20 mg Documented By: EMILY Hydromorphone HCl (Hydromorphone Hcl 0.5 Mg/0.5 Ml Syringe) 0.25 mg IVPUSH Q4H PRN; Protocol PRN Reason: Pain, Severe (Pain Scale 7-10) Last Admin: 08/29/22 16:05 Dose: 0.25 mg Documented By: WILD Daptomycin 350 mg/ Sodium (Chloride) 57 mls @ 114 mls/hr IV Q24H [facility] Last Infusion: 09/03/22 21:56 Dose: 0 mls/hr Documented By: RAUL Lorazepam (Lorazepam 0.5 Mg Tablet) 0.5 mg PO Q6H PRN PRN Reason: Anxiety Last Admin: 09/02/22 22:14 Dose: 0.5 mg Documented By: MARIE Lorazepam (Lorazepam 0.5 Mg Tablet) 0.5 mg PO BEDTIME [facility] Last Admin: 09/03/22 20:44 Dose: 0.5 mg Documented By: RAUL Losartan Potassium (Losartan Potassium 25 Mg Tablet) 25 mg PO DAILY [facility]; Protocol Last Admin: 09/04/22 08:49 Dose: 25 mg Documented By: EMILY Omeprazole (Omeprazole 20 Mg Capsule.Dr) 20 mg PO DAILY@0630 [facility] Last Admin: 09/04/22 06:28 Dose: 20 mg Documented By: MARGARITA Ondansetron HCl (Ondansetron Hcl 4 Mg/2 Ml Vial) 4 mg IVPUSH Q8H PRN PRN Reason: Nausea and Vomiting Oxycodone HCl (Oxycodone Hcl Immed Release 5 Mg Tablet) 10 mg PO Q4H [facility] Last Admin: 09/04/22 12:59 Dose: 10 mg Documented By: EMILY Sodium Chloride (0.9 % Sodium Chloride Flush 3 Ml Syringe) 3 ml IVFLUSH QSHIFT [facility] Last Admin: 09/04/22 08:53 Dose: Not Given Documented By: EMILY Non-Admin Reason: picc Spironolactone (Spironolactone 25 Mg Tablet) 25 mg PO DAILY [facility]; Protocol Last Admin: 09/04/22 08:49 Dose: 25 mg Documented By: EMILY Trazodone HCl (Trazodone Hcl 25 Mg Halftab) 25 mg PO BEDTIME PRN PRN Reason: Insomnia Last Admin: 09/04/22 00:14 Dose: 25 mg Documented By: MARGARITA Labs 09/02/22 06:04 09/02/22 06:04 Microbiology Microbiology Results: Microbiology 08/30/22 09:09 Blood Culture - Final Blood - Arterial No growth after 5 days. 08/30/22 09:03 Blood Culture - Final Blood - Arterial No growth after 5 days. Assessment and Plan (1) Wound cellulitis: Status: Acute (2) HTN (hypertension): Status: Acute (3) (HFpEF) heart failure with preserved ejection fraction: Status: Acute Plan 72-year-old female with history of COPD, HFpEF, HTN who presents to the emergency department after a fall found to have left trimalleolar fracture status post reduction 1.Left trimalleolar fracture s/p ORIF of ankle 08/13 - wound vac -surgery to change wound VAC 2. Wound cellulitis -daptomycyin () -arranging outpatient treatment 3.Anemia; chronic disease -follow clinically 4.HTN -acceptable control on current therapies -adjust as indicated 5.HFpEF -well compensated -Continue current therapies 6.Chronic kidney disease (CKD) stage G3a/A1 -at baseline -follow renals/divalents Patient will require ongoing hospitalization for monitoring of wound VAC and IV daptomycin until acceptable disposition Time Spent With Patient Time: Total time managing care of this patient today ____ minutes. Quality Stroke Does the patient have a stroke diagnosis?: No VTE Prior VTE?: No VTE Risk Level:: Surgical - very high VTE Device Contraindication: N/A - Device Ordered VTE Drug Contraindication: N/A - Med Ordered
--- NOTE | 2022-09-04 14:11 | PM.PNORT ---
Subjective Subjective Date of Service: 09/04/22 Interval history: POD 5 s/p Left ankle debridement 08/30/22 No overnight events she is resting in bed with blue boot on and prevena intact Patient has been getting out of bed and ambulating on right lower ext to chair and bathroom . She has been able to wash up. denies cp, sob, palpitations. Physical Exam Vital Signs: Vital Signs: Last Vital Signs Temp 97.0 F 09/04/22 07:26 Pulse 65 09/04/22 11:04 Resp 18 09/04/22 07:26 BP 142/67 H 09/04/22 11:04 Pulse Ox 100 09/04/22 11:04 O2 Del Method 09/04/22 07:26 O2 Flow Rate 2 09/04/22 07:26 BMI result Body Mass Index 36.9 Const: General: cooperative, healthy appearing and no acute distress Resp: Effort & Inspection: normal respiratory effort and able to speak in complete sentences Cardio: Rate: regular rate Peripheral pulses: Peripheral pulses 2+ throughout GI: Palpation (GI): Soft to palpation Skin: General skin exam: no rashes or lesions noted Extrem: Other: Left ankle prevena and boot intact. She has mild pain with movement , left ankle NVI. Procedures Date of Service Date of Service: 09/04/22 Progress Note: A&P Assessment and plan (1) Surgical wound breakdown: Status: Acute Assessment and Plan: ID recommends: Would give IV Daptomycin for six weeks as better to give with renal insufficiency. Weekly CK,LFT, creatinine (2) Closed left trimalleolar fracture: Status: Resolved Assessment and Plan: Continue pain mgmnt PT/OT NWB LLE, prevena intact. Keep on at all times Lovenox for dvt ppx qd blood cultures negative x2 -- picc line placed pending home vs STR (3) Chronic kidney disease (CKD) stage G3a/A1, moderately decreased glomerular filtration rate (GFR) between 45-59 mL/min/1.73 square meter and albuminuria creatinine ratio less than 30 mg/g: Status: Acute Assessment and Plan: Nephrology recommendation: Pt has stable nonprogressive CKD Unlikely she will need dialysis in her lifetime Hence, I have no objection with her having a PICC placed for antibiotics Plan Dispo pending blood cx and picc line , rehab placement Time Spent With Patient Time: Total time managing care of this patient today ____ minutes. Quality Stroke Does the patient have a stroke diagnosis?: No VTE Prior VTE?: No VTE Risk Level:: Surgical - very high VTE Device Contraindication: N/A - Device Ordered VTE Drug Contraindication: N/A - Med Ordered
[2022-09-04 15:21] VITALS: BP 127/63; PULSE 81; RESP 16; TEMP 36.6; O2SAT 99
[2022-09-04] MEDS: LORazepam 0.5 MG TABLET PO (17:30)
[2022-09-04 19:36] VITALS: BP 140/63; PULSE 74; RESP 16; TEMP 36.3; O2SAT 99
[2022-09-04] MEDS: cloNIDine HCL 0.2 MG TABLET PO (19:57)
[2022-09-04] MEDS: Albuterol Sulfate 90 MCG 8 GM INHALER 2 PUFF INHALE (20:36)
[2022-09-04 20:38] VITALS: PULSE 70; RESP 16; O2SAT 100
[2022-09-05] MEDS: Heparin Sodium,Porcine Flush 50 UNITS, 0.9 % Sodium Chloride Flush 5 ML IVFLUSH ×4 (00:24→23:55)
[2022-09-05] MEDS: oxyCODONE HCl Immed Release 5 MG TABLET 10 MG PO ×6 (00:25→23:54)
[2022-09-05] MEDS: LORazepam 0.5 MG TABLET PO ×3 (00:40→21:18)
[2022-09-05 04:00] VITALS: BP 131/63; PULSE 74; RESP 16; TEMP 36.1; O2SAT 99
[2022-09-05] MEDS: Omeprazole 20 MG CAPSULE.DR PO (06:22)
[2022-09-05 07:35] LABS: Glucose, Whole Blood 94 mg/dL (60-115)
[2022-09-05 08:00] VITALS: BP 157/70; PULSE 72; RESP 18; TEMP 36.3; O2SAT 98
[2022-09-05] MEDS: Fluticasone/Vilanterol 100/25 BLST.W.DEV 1 PUFF INHALE (08:13)
[2022-09-05 08:15] VITALS: PULSE 71; RESP 16; O2SAT 100
[2022-09-05] MEDS: 0.9 % Sodium Chloride Flush 3 ML SYRINGE IVFLUSH (08:29)
[2022-09-05] MEDS: Enoxaparin Sodium 40 MG/0.4 ML SYRINGE SUBCUT (08:30)
[2022-09-05] MEDS: Folic Acid 1 MG TABLET PO (08:30)
[2022-09-05] MEDS: carvediloL 12.5 MG TABLET 37.5 MG PO ×2 (08:31→21:18)
[2022-09-05] MEDS: Atorvastatin Calcium 40 MG TABLET PO (08:31)
[2022-09-05] MEDS: Losartan Potassium 25 MG TABLET PO (08:31)
[2022-09-05] MEDS: Ferrous Sulfate 324 MG TABLET.DR PO (08:31)
[2022-09-05] MEDS: Spironolactone 25 MG TABLET PO (08:32)
[2022-09-05] MEDS: Cyanocobalamin (Vitamin B-12) 1,000 MCG TABLET 1000 MCG PO (08:32)
[2022-09-05] MEDS: diphenhydrAMINE HCL 25 MG CAPSULE PO (08:32)
--- NOTE | 2022-09-05 09:08 | PM.PNORT ---
Subjective Subjective Date of Service: 09/05/22 Interval history: POD 6 s/p Left ankle debridement 08/30/22 No overnight events she is resting in bed with blue boot on and prevena intact Patient has been getting out of bed and ambulating on right lower ext to chair and bathroom . She has been able to wash up. denies cp, sob, palpitations. Physical Exam Vital Signs: Vital Signs: Last Vital Signs Temp 97.4 F 09/05/22 08:00 Pulse 71 09/05/22 08:15 Resp 16 09/05/22 08:15 BP 157/70 H 09/05/22 08:00 Pulse Ox 98 09/05/22 08:00 O2 Del Method 09/05/22 08:00 O2 Flow Rate 2 09/04/22 07:26 BMI result Body Mass Index 36.9 Const: General: cooperative, healthy appearing and no acute distress Resp: Effort & Inspection: normal respiratory effort and able to speak in complete sentences Cardio: Rate: regular rate Peripheral pulses: Peripheral pulses 2+ throughout GI: Palpation (GI): Soft to palpation Skin: General skin exam: no rashes or lesions noted Extrem: Other: Left ankle prevena and boot intact. She has mild pain with movement , left ankle NVI. Procedures Date of Service Date of Service: 09/05/22 Progress Note: A&P Assessment and plan (1) Surgical wound breakdown: Status: Acute Assessment and Plan: ID recommends: Would give IV Daptomycin for six weeks as better to give with renal insufficiency. Weekly CK,LFT, creatinine (2) Closed left trimalleolar fracture: Status: Resolved Assessment and Plan: Continue pain mgmnt PT/OT NWB LLE, prevena intact. Keep on at all times Lovenox for dvt ppx qd blood cultures negative x2 -- picc line placed pending STR (3) Chronic kidney disease (CKD) stage G3a/A1, moderately decreased glomerular filtration rate (GFR) between 45-59 mL/min/1.73 square meter and albuminuria creatinine ratio less than 30 mg/g: Status: Acute Assessment and Plan: Nephrology recommendation: Pt has stable nonprogressive CKD Unlikely she will need dialysis in her lifetime Hence, I have no objection with her having a PICC placed for antibiotics Plan Dispo pending blood cx and picc line , rehab placement Time Spent With Patient Time: Total time managing care of this patient today ____ minutes. Quality Stroke Does the patient have a stroke diagnosis?: No VTE Prior VTE?: No VTE Risk Level:: Surgical - very high VTE Device Contraindication: N/A - Device Ordered VTE Drug Contraindication: N/A - Med Ordered
--- NOTE | 2022-09-05 15:21 | MHC.CM.PN ---
PT IS AWARE [facility] OFFERING STR BED HOWEVER REPORTS SHE WOULD PREFER TO GO TO [facility] REFERRAL RESUBMITTED WITH [facility] ([facility]) [facility] NOW OFFERING PENDING PCR TEST AND INSURANCE AUTH THEY HAVE SUBMITTED AUTH REQUEST PT EXPECTED TO DC TOMORROW
--- NOTE | 2022-09-05 15:45 | HO.PM.IMPN ---
Subjective Subjective Date of Service: 09/05/22 Interval History: Subjectively complaining of shortness of breath; using incentive spirometry. Voicing concerns over anxiety Review of Systems Denies chest pain Denies shortness of breath Denies nausea vomiting diarrhea Denies fever and chills Physical Exam Vital Signs: Vital Signs: Last Vital Signs Temp 97.4 F 09/05/22 08:00 Pulse 71 09/05/22 08:15 Resp 16 09/05/22 08:15 BP 157/70 H 09/05/22 08:00 Pulse Ox 98 09/05/22 08:00 O2 Del Method 09/05/22 08:00 O2 Flow Rate 2 09/04/22 07:26 BMI result Body Mass Index 36.9 Const: Other: No acute distress Resp: Other: Clear to auscultation bilaterally no rales rhonchi or wheezes Cardio: Other: No S4; positive S1-S2; no S3 murmurs rubs or gallops GI: Other: Soft nontender nondistended normoactive bowel sounds Extrem: Other: Wound VAC to left ankle Objective Data Active Medications Acetaminophen (Acetaminophen 325 Mg Tablet) 650 mg PO Q4H PRN PRN Reason: Pain, Severe (Pain Scale 7-10) Last Admin: 09/02/22 10:19 Dose: 650 mg Documented By: KIMBERLEY Albuterol Sulfate (Albuterol Sulfate 90 Mcg 8 Gm Inhaler) 2 puff INHALE Q6H PRN PRN Reason: Respiratory Distress Last Admin: 09/04/22 20:36 Dose: 2 puff Documented By: ARTHUR Atorvastatin Calcium (Atorvastatin Calcium 40 Mg Tablet) 40 mg PO DAILY [facility] Last Admin: 09/05/22 08:31 Dose: 40 mg Documented By: NIKIA Carvedilol (Carvedilol 12.5 Mg Tablet) 37.5 mg PO BID [facility]; Protocol Last Admin: 09/05/22 08:31 Dose: 37.5 mg Documented By: NIKIA Clonidine HCl (Clonidine Hcl 0.2 Mg Tablet) 0.2 mg PO BEDTIME [facility]; Protocol Last Admin: 09/04/22 19:57 Dose: 0.2 mg Documented By: RAUL Heparin Sodium (Porcine) 50 (units/ Sodium Chloride 5 ml) [facility] Last Admin: 09/05/22 08:30 Dose: 50 unit Documented By: NIKIA Cyanocobalamin (Cyanocobalamin (Vitamin B-12) 1,000 Mcg Tablet) 1,000 mcg PO DAILY [facility] Last Admin: 09/05/22 08:32 Dose: 1,000 mcg Documented By: NIKIA Diphenhydramine HCl (Diphenhydramine Hcl 25 Mg Capsule) 25 mg PO DAILY [facility] Last Admin: 09/05/22 08:32 Dose: 25 mg Documented By: NIKIA Enoxaparin Sodium (Enoxaparin Sodium 40 Mg/0.4 Ml Syringe) 40 mg SUBCUT Q24H [facility] Last Admin: 09/05/22 08:30 Dose: 40 mg Documented By: NIKIA Epinephrine (Epinephrine 1 Mg/Ml Vial) 0.3 mg IM Q20M PRN PRN Reason: anaphylaxis Ferrous Sulfate (Ferrous Sulfate 324 Mg Tablet.Dr) 324 mg PO DAILY [facility] Last Admin: 09/05/22 08:31 Dose: 324 mg Documented By: NIKIA Fluticasone/Vilanterol (Fluticasone/Vilanterol 100/25 Blst.W.Dev) 1 puff INHALE RDAILY [facility] Last Admin: 09/05/22 08:13 Dose: 1 puff Documented By: MARITZA Folic Acid (Folic Acid 1 Mg Tablet) 1 mg PO DAILY [facility] Last Admin: 09/05/22 08:30 Dose: 1 mg Documented By: NIKIA Furosemide (Furosemide 20 Mg Tablet) 20 mg PO MOWEFR@0900 [facility]; Protocol Last Admin: 09/04/22 08:49 Dose: 20 mg Documented By: EMILY Hydromorphone HCl (Hydromorphone Hcl 0.5 Mg/0.5 Ml Syringe) 0.25 mg IVPUSH Q4H PRN; Protocol PRN Reason: Pain, Severe (Pain Scale 7-10) Last Admin: 08/29/22 16:05 Dose: 0.25 mg Documented By: WILD Daptomycin 350 mg/ Sodium (Chloride) 57 mls @ 114 mls/hr IV Q24H [facility] Last Infusion: 09/04/22 20:33 Dose: 0 mls/hr Documented By: RAUL Lorazepam (Lorazepam 0.5 Mg Tablet) 0.5 mg PO Q6H PRN PRN Reason: Anxiety Last Admin: 09/05/22 15:42 Dose: 0.5 mg Documented By: NIKIA Lorazepam (Lorazepam 0.5 Mg Tablet) 0.5 mg PO BEDTIME [facility] Last Admin: 09/04/22 21:20 Dose: Not Given Documented By: RAUL Non-Admin Reason: Patient Refused Losartan Potassium (Losartan Potassium 25 Mg Tablet) 25 mg PO DAILY [facility]; Protocol Last Admin: 09/05/22 08:31 Dose: 25 mg Documented By: NIKIA Omeprazole (Omeprazole 20 Mg Capsule.Dr) 20 mg PO DAILY@0630 [facility] Last Admin: 09/05/22 06:22 Dose: 20 mg Documented By: MARGARITA Ondansetron HCl (Ondansetron Hcl 4 Mg/2 Ml Vial) 4 mg IVPUSH Q8H PRN PRN Reason: Nausea and Vomiting Oxycodone HCl (Oxycodone Hcl Immed Release 5 Mg Tablet) 10 mg PO Q4H [facility] Last Admin: 09/05/22 13:19 Dose: 10 mg Documented By: NIKIA Sodium Chloride (0.9 % Sodium Chloride Flush 3 Ml Syringe) 3 ml IVFLUSH QSHIFT [facility] Last Admin: 09/05/22 08:29 Dose: 3 ml Documented By: NIKIA Spironolactone (Spironolactone 25 Mg Tablet) 25 mg PO DAILY [facility]; Protocol Last Admin: 09/05/22 08:32 Dose: 25 mg Documented By: NIKIA Trazodone HCl (Trazodone Hcl 25 Mg Halftab) 25 mg PO BEDTIME PRN PRN Reason: Insomnia Last Admin: 09/04/22 00:14 Dose: 25 mg Documented By: MARGARITA Labs 09/02/22 06:04 09/02/22 06:04 Labs: Laboratory Results - last 24 hr 09/05/22 07:24 POC Glucose 94 Microbiology Microbiology Results: Microbiology 08/30/22 09:09 Blood Culture - Final Blood - Arterial No growth after 5 days. 08/30/22 09:03 Blood Culture - Final Blood - Arterial No growth after 5 days. Assessment and Plan (1) Wound cellulitis: Status: Acute (2) HTN (hypertension): Status: Acute (3) (HFpEF) heart failure with preserved ejection fraction: Status: Acute (4) Anxiety: Status: Acute Plan 72-year-old female with history of COPD, HFpEF, HTN who presents to the emergency department after a fall found to have left trimalleolar fracture status post reduction 1.Left trimalleolar fracture s/p ORIF of ankle 08/13 - wound vac -surgery to change wound VAC 2. Wound cellulitis -daptomycyin () -discussed with ID; will change the vancomycin to aid placement 3. Anxiety -start low dose Zoloft titrate up as tolerated -Ativan p.r.n. at HS 4.HTN -acceptable control on current therapies -adjust as indicated 5.HFpEF -well compensated -Continue current therapies 6.Chronic kidney disease (CKD) stage G3a/A1 -at baseline -follow renals/divalents Patient will require ongoing hospitalization for monitoring of wound VAC and IV daptomycin until acceptable disposition Time Spent With Patient Time: Total time managing care of this patient today ____ minutes. Quality Stroke Does the patient have a stroke diagnosis?: No VTE Prior VTE?: No VTE Risk Level:: Surgical - very high VTE Device Contraindication: N/A - Device Ordered VTE Drug Contraindication: N/A - Med Ordered
[2022-09-05 16:00] VITALS: BP 128/63; PULSE 75; RESP 18; TEMP 36.3; O2SAT 98
[2022-09-05 17:22] LABS: Creatinine Clr Calc Pharmacy 63.2; Estimated Glomerular Filt Rate 59
--- NOTE | 2022-09-05 18:57 | PHA.PROG ---
Admission Date/Time: August 28, 2022 16:38 Indication: skin Weight in k.6 kg Serum Creatinine - Last 168 Hours 08/30/22 08/31/22 09/01/22 06:18 05:32 05:15 Creatinine 0.92 0.88 0.94 09/02/22 09/05/22 06:04 16:49 Creatinine 0.87 0.94 Estimated CrCl and GFR - Last 168 Hours 08/30/22 08/31/22 09/01/22 06:18 05:32 05:15 Estim Creat Clear Calc 64.5 67.4 63.2 Estimated GFR > 60 > 60 59 09/02/22 09/05/22 06:04 16:49 Estim Creat Clear Calc 68.3 63.2 Estimated GFR > 60 59 Vancomycin Loading Dose: 2000 Current Vancomycin Dosing Regimen: 1250 Vancomycin Monitoring using AUC goal of 400 - 600 range with trough as surrogate marker: 521 Date and Time for next Vancomycin Level to be drawn: 09/07 @ 1600 Vancomycin Trough 21.0 mcg/mL (10.0-20.0) H 08/30/22 07:36 Pharmacist Comments on Vancomycin Plan: Vancomycin dosing will take advantage of [employer] as a clinical decision support tool that uses Bayesian modeling to calculate individual patient's pharmacokinetic parameters and forecast the patient's drug concentration time course with the target goal AUC 24 range of 400 - 600 mg/L/hr.
[2022-09-05 20:00] VITALS: BP 139/63; PULSE 77; RESP 18; TEMP 36.6; O2SAT 100
[2022-09-05] MEDS: cloNIDine HCL 0.2 MG TABLET PO (21:18)
[2022-09-06 04:00] VITALS: BP 162/75; PULSE 67; RESP 18; TEMP 36.5; O2SAT 100
[2022-09-06] MEDS: oxyCODONE HCl Immed Release 5 MG TABLET 10 MG PO ×3 (05:10→16:18)
[2022-09-06] MEDS: Omeprazole 20 MG CAPSULE.DR PO (05:10)
--- NOTE | 2022-09-06 07:26 | P.DS_ITS ---
DS: Providers Provider Date of Service: 09/06/22 Date of admission: 08/28/22 16:38 Primary care physician: Ana Lilia Espinoza NP Consults: 08/28/22 16:36 Consult to Infectious Diseases Routine Consulting Provider: Anna Porter Reason for consultation: LEFT ANKLE INFECTION S/P ORIF 08/28/22 22:07 Consult to Hospitalist Routine Consulting Provider: Hospitalist Reason For Exam: h/o CHF, CKD,COPD, 08/29/22 17:02 Consult to Nephrology Routine Consulting Provider: Martin Longoria Reason for consultation: h/o CKD in need of picc line for ankle infection 09/05/22 08:53 Consult to Psychiatry Routine Consulting Provider: Psych Covering Reason for consultation: uncontrolled anxiety DS: Diagnosis Discharge Diagnosis (1) Wound cellulitis: Status: Acute (2) HTN (hypertension): Status: Acute (3) (HFpEF) heart failure with preserved ejection fraction: Status: Acute (4) Anxiety: Status: Acute DS: Summary Hospital Course Hospital Course: 72 yo female s/p ORIF lateral mal and ORIF syndesmosis on 08/13/22- later complicated by wound breakdown and superficial infection. Admitted to the hospital for IV abx and Irrigation and debridement left ankle with placement of vacuum assisted closure device on 08/29/2022. Following the procedure, the patient remained inpatient with Picc line placement on 09/02/2022: Technique: Following informed consent including risks, benefits and a lternatives and using sterile technique including cap and mask, sterile gown, glove and drape, the [LEFT] arm was prepped and draped in the usual sterile fashion of full barrier technique with CHG.? Following completion of Hadley Protocol the skin and soft tissues were anesthetized with 1% Lidocaine plain.? Using ultrasound guidance, [LEFT BASILIC ] vein access was obtained AND ACCESS ON FIRST ATTEMPT.? Over an 0.018 wire through peel-away sheath, a [4 FR SINGLE LUMEN PASV] PICC line was positioned.? Catheter length is [47CM] internal length, [0CM] external length, for a total trimmed length of [47CM].? The procedure was performed in [RM 272].? Tip verification was performed by Maxi May with Jimmy 3CG.? Tip located in SVC.? Ultrasound was used to document vein patency and for needle entry.? A formal ultrasound picture and cardiac rhythm strip was recorded.? Vascular Supervisor Particleboard has released the line for use and it is currently dressed with a StatLock, Tegaderm, and CHG disc.? Verification has been performed for blood return and line patency.? IV Antibiotic Vancomycin x 6 weeks * Daily BUN/creatinine * Check Vanco trough levels after 4th dose * Keep Vanco trough level between 10 and 20 * Flush PICC line with 10 cc of normal saline 3 times a day * Routine discharge flushing with 10 mL of normal saline after blood specimen withdrawal, medication administration or post transfusion flushing PREVENA WOUND VAC DRESSING: Keep on at all times, if there are any concerns please contact our office immediately OTHER TREATED MEDICAL CONDITIONS WHILE INPATIENT: Anxiety -start low dose Zoloft titrate up as tolerated -Ativan p.r.n. at HS HTN -acceptable control on current therapies -adjust as indicated HFpEF -well compensated -Continue current therapies Chronic kidney disease (CKD) stage G3a/A1 -at baseline -follow renals/divalents Time Spent with Patient Time attestation: Total time managing care of this patient today ____ minutes. Discharge coordination time: Greater than 30 minutes Quality: Safe Use of Opioids Does Pt have an Active Cancer Diagnosis on the Problem List?: No Quality: Stroke Does the patient have a stroke diagnosis?: No Physical Exam Vital Signs: Vital Signs: Last Vital Signs Temp 97.7 F 09/06/22 04:00 Pulse 67 09/06/22 04:00 Resp 18 09/06/22 04:00 BP 162/75 H 09/06/22 04:00 Pulse Ox 100 09/06/22 04:00 O2 Del Method 09/06/22 04:00 O2 Flow Rate 2 09/04/22 07:26 BMI result Body Mass Index 36.9 Const: General: cooperative, healthy appearing and no acute distress Resp: Effort & Inspection: normal respiratory effort and able to speak in complete sentences Cardio: Rate: regular rate Peripheral pulses: Peripheral pulses 2+ throughout GI: Palpation (GI): Soft to palpation Skin: General skin exam: no rashes or lesions noted Extrem: Other: Left ankle prevena and boot intact. She has mild pain with movement , left ankle NVI. DS: Data Data Completed and Pending Completed studies during hospitalization [Text1]: Procedures Reposition Left Fibula with Internal Fixation Device, Open Approach (08/09/22) Reposition Left Fibula, External Approach (08/09/22) Reposition Left Tibia with Internal Fixation Device, Open Approach (08/09/22) Reposition Left Tibia, External Approach (08/09/22) Labs on day of discharge: Laboratory Results - last 24 hr 09/05/22 09/05/22 07:24 16:49 Creatinine 0.94 Estim Creat Clear Calc 63.2 Estimated GFR 59 POC Glucose 94 Discharge Plan Discharge Anticipated Discharge Date/Time: 09/06/22 12:45 Patient Disposition: Xfer SNF Discharge Diagnosis: Left ankle ORIF / I&D Referrals: [facility] [Outside] - 1 Week Brooks Mendoza PA-C [Physician Pan Puller] - 1 Week (09/12/2022 @ 8:45am) Discharge Medications: New sertraline 25 mg Tablet 25 mg PO DAILY 30 Days Qty: 30 0RF acetaminophen 325 mg Tablet 650 mg PO Q4H PRN (Reason: Pain, Severe (Pain Scale 7-10)) 30 Days Qty: 240 0RF enoxaparin 40 mg/0.4 mL Syringe 40 mg subcut Q24H 21 Days Qty: 8.4 0RF vancomycin in 0.9 % sodium chl 1.25 gram/250 mL solution 1.25 g IV Q24H 42 Days Qty: 67296 0RF lorazepam 0.5 mg Tablet 0.5 mg PO BEDTIME Qty: 30 0RF trazodone 50 mg tablet 50 mg PO BEDTIME Qty: 30 0RF oxycodone 10 mg tablet 10 mg PO Q6H Qty: 42 0RF Rx Instructions: Partial Fill upon patient request. Continued carvedilol 25 mg tablet 37.5 mg PO BID Qty: 90 5RF (DME) 3 in 1 commode See Rx Instructions .ROUTE .MEDSUPPLY Qty: 1 0RF Rx Instructions: Displaced trimalleolar fracture of left lower leg, initial encounter for closed fracture (DME) Raised toilet seat See Rx Instructions .ROUTE .MEDSUPPLY Qty: 1 0RF Rx Instructions: As directed folic acid 1 mg tablet 1 mg PO DAILY Qty: 30 0RF ferrous sulfate 325 mg (65 mg iron) tablet 325 mg PO DAILY Qty: 30 0RF cyanocobalamin (vitamin B-12) 1,000 mcg tablet 1 tab PO DAILY spironolactone 25 mg tablet 1 tab PO DAILY clonidine HCl 0.1 mg tablet 2 tab PO BEDTIME furosemide 20 mg Tablet 20 mg PO MOWEFR@0900 diphenhydramine HCl [Benadryl] 25 mg Capsule 25 mg PO DAILY albuterol sulfate 90 mcg/actuation Hfa Aerosol Inhaler 2 puff INHALATION Q6H PRN (Reason: Respiratory Distress) fluticasone propion-salmeterol [Wixela Inhub] 250-50 mcg/dose blister with device 1 inh inhalation BID Qty: 60 1RF epinephrine 0.3 mg/0.3 mL auto-injector 0.3 mg IM Q20M PRN (Reason: anaphylaxis) Qty: 2 0RF Rx Instructions: for 2 doses pantoprazole 40 mg tablet,delayed release (DR/EC) 40 mg PO DAILY atorvastatin 40 mg tablet 40 mg PO DAILY losartan 25 mg tablet 25 mg PO DAILY Discontinued oxycodone 5 mg tablet 5 mg PO Q6H PRN (Reason: pain) Qty: 30 0RF Rx Instructions: Partial Fill upon patient request. oxycodone 5 mg tablet 5 mg PO Q6H PRN (Reason: pain) Qty: 30 0RF Rx Instructions: Partial Fill upon patient request. cephalexin 500 mg capsule 1 cap PO BID sulfamethoxazole-trimethoprim 800-160 mg tablet 1 tab PO Q12H acetaminophen 500 mg tablet 1,000 mg PO QID PRN (Reason: pain) Qty: 30 0RF lorazepam [Ativan] 0.5 mg tablet 0.5 mg PO BEDTIME PRN (Reason: ANXIETY/SLEEP) oxycodone 5 mg tablet 5 mg PO Q6H PRN (Reason: pain (scale score 7-10)) Qty: 10 0RF Rx Instructions: Partial Fill upon patient request. oxycodone 5 mg tablet 5 mg PO Q4H PRN (Reason: pain) Qty: 10 0RF Rx Instructions: Partial Fill upon patient request. Discharge Orders: Discharge Order (Routine); Ordered 09/06/22 Ordered By: Siddharth Marcial Diet: Regular diet Activity on Discharge: Use cane or walker Stand Alone Forms: Patient Portal Discharge page Care Plan Goals: Restore function of joint Wound healing Health Concerns: Monitor Anxiety Plan of Treatment: ORIF / I&D Left ankle * NWB x 6 weeks operative leg * Keep splint clean, dry and intact * Keep Prevena wound vac on at all times, if there are any concerns please contact our office immediately. * Elevate leg above the level of the heart on 3 pillows * Any questions or concerns please call the office [facility] * Follow up with Orthopedics in 2 weeks. Picc line : * Daily BUN/creatinine * Check Vanco trough levels after 4th dose * Keep Vanco trough level between 10 and 20 * Flush PICC line with 10 cc of normal saline 3 times a day * Routine discharge flushing with 10 mL of normal saline after blood specimen withdrawal, medication administration or post transfusion flushing Anxiety -start low dose Zoloft titrate up as tolerated -Ativan p.r.n. at Assessment: Physical Therapy Pain management DVT prophylaxis Discharge Date/Time: 09/06/22 17:22
[2022-09-06 08:00] VITALS: BP 157/74; PULSE 74; RESP 18; TEMP 36.7; O2SAT 98
[2022-09-06 08:48] VITALS: PULSE 73; RESP 16; O2SAT 98
[2022-09-06] MEDS: Fluticasone/Vilanterol 100/25 BLST.W.DEV 1 PUFF INHALE (08:48)
[2022-09-06] MEDS: Sertraline HCL 25 MG TABLET PO (09:08)
[2022-09-06] MEDS: Folic Acid 1 MG TABLET PO (09:08)
[2022-09-06] MEDS: Cyanocobalamin (Vitamin B-12) 1,000 MCG TABLET 1000 MCG PO (09:08)
[2022-09-06] MEDS: Spironolactone 25 MG TABLET PO (09:08)
[2022-09-06] MEDS: Atorvastatin Calcium 40 MG TABLET PO (09:09)
[2022-09-06] MEDS: Ferrous Sulfate 324 MG TABLET.DR PO (09:09)
[2022-09-06] MEDS: diphenhydrAMINE HCL 25 MG CAPSULE PO (09:09)
[2022-09-06] MEDS: carvediloL 12.5 MG TABLET 37.5 MG PO (09:09)
[2022-09-06] MEDS: Losartan Potassium 25 MG TABLET PO (09:09)
[2022-09-06] MEDS: Furosemide 20 MG TABLET PO (09:09)
[2022-09-06] MEDS: Heparin Sodium,Porcine Flush 50 UNITS, 0.9 % Sodium Chloride Flush 5 ML IVFLUSH ×2 (09:10→16:19)
[2022-09-06] MEDS: Enoxaparin Sodium 40 MG/0.4 ML SYRINGE SUBCUT (09:11)
[2022-09-06 09:13] VITALS: PULSE 73
[2022-09-06 09:14] LABS: Creatinine Clr Calc Pharmacy 70.6; Estimated Glomerular Filt Rate > 60
--- NOTE | 2022-09-06 09:21 | HE.PHANOTE ---
Vancomycin Dosing Addendum Patient has only received load at this time and renal function has shown improvement. Continue current dose of 1250 mg Q24H. Next draw will be 09/07 @1600
[2022-09-06 10:43] LABS: COVID-19 Test Negative (Negative); IDNOW Serial# BCCEAD1C
--- NOTE | 2022-09-06 10:54 | P.DS_ITS ---
DS: Providers Provider Date of Service: 09/06/22 Date of admission: 08/28/22 16:38 Date of discharge: 09/06/22 Primary care physician: Ana Lilia Espinoza NP Consults: 08/28/22 16:36 Consult to Infectious Diseases Routine Consulting Provider: Anna Porter Reason for consultation: LEFT ANKLE INFECTION S/P ORIF 08/28/22 22:07 Consult to Hospitalist Routine Consulting Provider: Hospitalist Reason For Exam: h/o CHF, CKD,COPD, 08/29/22 17:02 Consult to Nephrology Routine Consulting Provider: Martin Longoria Reason for consultation: h/o CKD in need of picc line for ankle infection 09/05/22 08:53 Consult to Psychiatry Routine Consulting Provider: Psych Covering Reason for consultation: uncontrolled anxiety DS: Diagnosis Discharge Diagnosis (1) Wound cellulitis: Status: Acute (2) HTN (hypertension): Status: Acute (3) (HFpEF) heart failure with preserved ejection fraction: Status: Acute (4) Anxiety: Status: Acute DS: Summary Hospital Course Hospital Course: 72 yo female s/p ORIF lateral mal and ORIF syndesmosis on 08/13/22- later complicated by wound breakdown and superficial infection. Admitted to the hospital for IV abx and Irrigation and debridement left ankle with placement of vacuum assisted closure device on 08/29/2022. Following the procedure, the patient remained inpatient with Picc line placement on 09/02/2022: Technique: Following informed consent including risks, benefits and alternatives and using sterile technique including cap and mask, sterile gown, glove and drape, the [LEFT] arm was prepped and draped in the usual st erile fashion of full barrier technique with CHG.? Following completion of Hackberry Protocol the skin and soft tissues were anesthetized with 1% Lidocaine plain.? Using ultrasound guidance, [LEFT BASILIC ] vein access was obtained AND ACCESS ON FIRST ATTEMPT.? Over an 0.018 wire through peel-away sheath, a [4 FR SINGLE LUMEN PASV] PICC line was positioned.? Catheter length is [47CM] internal length, [0CM] external length, for a total trimmed length of [47CM].? The procedure was performed in [RM 272].? Tip verification was performed by Maxi May with Jimmy 3CG.? Tip located in SVC.? Ultrasound was used to document vein patency and for needle entry.? A formal ultrasound picture and cardiac rhythm strip was recorded.? Vascular Attorney has released the line for use and it is currently dressed with a StatLock, Tegaderm, and CHG disc.? Verification has been performed for blood return and line patency.? IV Antibiotic Vancomycin x 6 weeks * Daily BUN/creatinine * Check Vanco trough levels after 4th dose * Keep Vanco trough level between 10 and 20 * Flush PICC line with 10 cc of normal saline 3 times a day * Routine discharge flushing with 10 mL of normal saline after blood specimen withdrawal, medication administration or post transfusion flushing PREVENA WOUND VAC DRESSING: Keep on at all times, if there are any concerns please contact our office immediately OTHER TREATED MEDICAL CONDITIONS WHILE INPATIENT: Anxiety -start low dose Zoloft titrate up as tolerated -Ativan p.r.n. at HS HTN -acceptable control on current therapies -adjust as indicated HFpEF -well compensated -Continue current therapies Chronic kidney disease (CKD) stage G3a/A1 -at baseline -follow renals/divalents Time Spent with Patient Time attestation: Total time managing care of this patient today ____ minutes. Discharge coordination time: Greater than 30 minutes Quality: Safe Use of Opioids Does Pt have an Active Cancer Diagnosis on the Problem List?: No Quality: Stroke Does the patient have a stroke diagnosis?: No Physical Exam Vital Signs: Vital Signs: Last Vital Signs Temp 98.0 F 09/06/22 08:00 Pulse 73 09/06/22 09:13 Resp 16 09/06/22 08:48 BP 157/74 H 09/06/22 08:00 Pulse Ox 98 09/06/22 08:00 O2 Del Method 09/06/22 08:00 O2 Flow Rate 2 09/04/22 07:26 BMI result Body Mass Index 36.9 Const: Other: No acute distress Resp: Other: Clear to auscultation bilaterally no rales rhonchi or wheezes Cardio: Other: No S4; positive S1-S2; no S3 murmurs rubs or gallops GI: Other: Soft nontender nondistended normoactive bowel sounds Extrem: Other: Wound VAC to left ankle DS: Data Data Completed and Pending Completed studies during hospitalization [Text1]: Procedures Reposition Left Fibula with Internal Fixation Device, Open Approach (08/09/22) Reposition Left Fibula, External Approach (08/09/22) Reposition Left Tibia with Internal Fixation Device, Open Approach (08/09/22) Reposition Left Tibia, External Approach (08/09/22) Labs on day of discharge: Laboratory Results - last 24 hr 09/05/22 09/06/22 09/06/22 16:49 08:45 09:38 Creatinine 0.94 0.84 Estim Creat Clear Calc 63.2 70.6 Estimated GFR 59 > 60 COVID-19 ([facility]) Negative COVID-19 Clin Com See Note Discharge Plan Discharge Anticipated Discharge Date/Time: 09/06/22 12:45 Patient Disposition: Xfer SNF Discharge Diagnosis: Left ankle ORIF / I&D Referrals: [facility] [Outside] - 1 Week Brooks Mendoza PA-C [Physician Script Coordinator] - 1 Week (09/12/2022 @ 8:45am) Discharge Medications: New sertraline 25 mg Tablet 25 mg PO DAILY 30 Days Qty: 30 0RF lorazepam 0.5 mg Tablet 0.5 mg PO Q6H PRN (Reason: Anxiety) 30 Days Qty: 120 0RF acetaminophen 325 mg Tablet 650 mg PO Q4H PRN (Reason: Pain, Severe (Pain Scale 7-10)) 30 Days Qty: 240 0RF enoxaparin 40 mg/0.4 mL Syringe 40 mg subcut Q24H 21 Days Qty: 8.4 0RF vancomycin in 0.9 % sodium chl 1.25 gram/250 mL solution 1.25 g IV Q24H 42 Days Qty: 87101 0RF oxycodone 10 mg tablet 10 mg PO Q4H PRN (Reason: pain) Qty: 42 0RF Rx Instructions: Partial Fill upon patient request. lorazepam [Ativan] 0.5 mg tablet 0.5 mg PO BEDTIME PRN (Reason: sleep) Qty: 30 0RF lorazepam 0.5 mg Tablet 0.5 mg PO BEDTIME Qty: 30 0RF Continued carvedilol 25 mg tablet 37.5 mg PO BID Qty: 90 5RF (DME) 3 in 1 commode See Rx Instructions .ROUTE .MEDSUPPLY Qty: 1 0RF Rx Instructions: Displaced trimalleolar fracture of left lower leg, initial encounter for closed fracture (DME) Raised toilet seat See Rx Instructions .ROUTE .MEDSUPPLY Qty: 1 0RF Rx Instructions: As directed folic acid 1 mg tablet 1 mg PO DAILY Qty: 30 0RF ferrous sulfate 325 mg (65 mg iron) tablet 325 mg PO DAILY Qty: 30 0RF cyanocobalamin (vitamin B-12) 1,000 mcg tablet 1 tab PO DAILY spironolactone 25 mg tablet 1 tab PO DAILY clonidine HCl 0.1 mg tablet 2 tab PO BEDTIME furosemide 20 mg Tablet 20 mg PO MOWEFR@0900 diphenhydramine HCl [Benadryl] 25 mg Capsule 25 mg PO DAILY albuterol sulfate 90 mcg/actuation Hfa Aerosol Inhaler 2 puff INHALATION Q6H PRN (Reason: Respiratory Distress) fluticasone propion-salmeterol [Wixela Inhub] 250-50 mcg/dose blister with device 1 inh inhalation BID Qty: 60 1RF epinephrine 0.3 mg/0.3 mL auto-injector 0.3 mg IM Q20M PRN (Reason: anaphylaxis) Qty: 2 0RF Rx Instructions: for 2 doses pantoprazole 40 mg tablet,delayed release (DR/EC) 40 mg PO DAILY atorvastatin 40 mg tablet 40 mg PO DAILY losartan 25 mg tablet 25 mg PO DAILY Discontinued oxycodone 5 mg tablet 5 mg PO Q6H PRN (Reason: pain) Qty: 30 0RF Rx Instructions: Partial Fill upon patient request. oxycodone 5 mg tablet 5 mg PO Q6H PRN (Reason: pain) Qty: 30 0RF Rx Instructions: Partial Fill upon patient request. cephalexin 500 mg capsule 1 cap PO BID sulfamethoxazole-trimethoprim 800-160 mg tablet 1 tab PO Q12H acetaminophen 500 mg tablet 1,000 mg PO QID PRN (Reason: pain) Qty: 30 0RF lorazepam [Ativan] 0.5 mg tablet 0.5 mg PO BEDTIME PRN (Reason: ANXIETY/SLEEP) oxycodone 5 mg tablet 5 mg PO Q6H PRN (Reason: pain (scale score 7-10)) Qty: 10 0RF Rx Instructions: Partial Fill upon patient request. oxycodone 5 mg tablet 5 mg PO Q4H PRN (Reason: pain) Qty: 10 0RF Rx Instructions: Partial Fill upon patient request. Discharge Orders: Discharge Order (Routine); Ordered 09/06/22 Ordered By: Siddharth Marcial Diet: Regular diet Activity on Discharge: Use cane or walker Stand Alone Forms: Patient Portal Discharge page Care Plan Goals: Restore function of joint Wound healing Health Concerns: Monitor Anxiety Plan of Treatment: ORIF / I&D Left ankle * NWB x 6 weeks operative leg * Keep splint clean, dry and intact * Keep Prevena wound vac on at all times, if there are any concerns please contact our office immediately. * Elevate leg above the level of the heart on 3 pillows * Any questions or concerns please call the office [facility]OL[facility] * Follow up with Orthopedics in 2 weeks. Picc line : * Daily BUN/creatinine * Check Vanco trough levels after 4th dose * Keep Vanco trough level between 10 and 20 * Flush PICC line with 10 cc of normal saline 3 times a day * Routine discharge flushing with 10 mL of normal saline after blood specimen withdrawal, medication administration or post transfusion flushing Anxiety -start low dose Zoloft titrate up as tolerated -Ativan p.r.n. at Assessment: Physical Therapy Pain management DVT prophylaxis
[2022-09-06 11:08] LABS: Influenza A PCR NEGATIVE (Negative); Influenza B PCR NEGATIVE (Negative); Resp Syncy Virus RNA Qual PCR NEGATIVE (Negative); SARS COV2 PCR INHOUSE NEGATIVE (Negative)
--- NOTE | 2022-09-06 11:40 | MHC.CM.PN ---
Addendum entered by Nkechi Romero 09/06/22 13:52: YU NOW HAS AUTH. PCR RESULTS SENT VIA [facility] PT WILL DC AT 1600 HOURS Original Note: YU SUBMITTED FOR AUTH YESTERDAY STR AUTH STILL PENDING BLS TRANSPORT TENTATIVELY SCHEDULED FOR 1600 HOURS VIA [facility]
[2022-09-06 15:16] VITALS: BP 145/69; PULSE 71; RESP 16; TEMP 36.7; O2SAT 100
--- NOTE | 2022-09-11 11:02 | W.PM.OPN ---
Operative Note Operative Note Date of Service: 08/29/22 Narrative: Date of Service: 08/29/22 Pre-op diagnosis: Left ankle infection with wound breakdown Post-op diagnosis: same Procedure: Irrigation and debridement left ankle with placement of vacuum assisted closure device Surgeon: Chino Trimble MD Anesthesia: GETA Was an Screed Operator used for this Procedure?: No Estimated blood loss (mL): 50 IV fluids (mL): 500 Pathology: none sent Condition: stable Disposition: PACU Patient was brought to the operating room and placed supine on the surgical table. She was prepped and draped in standard sterile fashion and a time out was called to identify proper site, proper procedure and IV antibiotics per weight were administered. The cntral portion of the wound was irritated and there was serous drainage. THis tracked down to the plate but no purulence seen deep. There was a thick cuff of tissue overlying the plate and there were no additional irregularities in the appearance of the overlying skin and deep tissues. I removed the intact kaylynn and irrigated copiously with 6 L warm saline. I then closed the tissues with nylon and patient was placed in a vacuum assisted dressing and a padded dorsiflexion boot. She was extubated and brought to the recovery room in stable condition. There were no known complications.
--- NOTE | 2022-09-13 13:18 | P.CDIR_ITS ---
Documented by User: Anais Jauregui RN 09/13/22 13:22 Retrospective Query PHYSICIAN'S DOCUMENTATION REQUEST Date of Query: 09/13/22 [id number] Patient Name: Binta High Admit Date: 08/28/22 Dear Doctor, A review of the medical record indicates additional documentation may be needed. Please review below and update the documentation accordingly. Clinical Indicators: Risk Factors/Clinical Indicators/Treatments Per Operative Report 09/11/22: Procedure: Irrigation and debridement left ankle with placement of vacuum assisted closure device There was a thick cuff of tissue overlying the plate and there were no additional irregularities in the appearance of the overlying skin and deep tissues. I removed the intact kaylynn and irrigated copiously with 6 L warm saline. Could you provide, in the Progress Notes, further clarification regarding the debridement? Please specify the type of debridement performed: * Excisional debridement - defined as removal by excision of: devitalized tissue, necrosis, or slough * Non-excisional debridement - defined as removal of devitalized tissue, necrosis, or slough by such methods as: irrigation, brushing, scrubbing, or washing. If the debridement was excisional please also include: * Type of instrument used (#11 blade, #15 blade, etc.) * What was excised (necrotic tissue, gangrenous tissue, slough, etc.) For excisional or non-excisional, please also include: * Depth of debridement (skin, subcutaneous tissue, muscle, fascia, bone, etc.) * Size and appearance of the wound (L,W,D, color of wound, drainage) Use of terms such as suspected, likely, concern for, or probable (associated with a specific diagnosis that is being evaluated, monitored, or treated as if it exists) are acceptable and can be coded in the inpatient setting, when documented at the time of discharge. Thank you, Anais Jauregui RN Extension: [phone] Please use your independent medical judgment in providing your response. THIS QUERY IS PART OF THE PERMANENT MEDICAL RECORD Documented by User: Chino Trimble MD 09/17/22 10:26 Retrospective Query Provider Response: Other (non excisional bioppsy with debridement of skin, subcutaneous tissue and bone.)
== END 2022-09-06 17:22 | disposition skilled nursing facility (03) | DRG 791 ==
PROVIDERS: Hospitalist; Orthopaedic Surgery; Admitting Provider Physician Assistant; PCP Nurse Practitioner Family; Visit Provider Physician Assistant
PROC: 0QDH0ZZ Extraction of Left Tibia, Open Approach (ICD-10-PCS; principal; 2022-08-29 13:00)
DX: T81.31XA Disruption of external operation (surgical) wound, not elsewhere classified, initial encounter (principal); I13.0 Hypertensive heart and chronic kidney disease with heart failure and stage 1 through stage 4 chronic kidney disease, or unspecified chronic kidney disease; J44.9 Chronic obstructive pulmonary disease, unspecified; I50.32 Chronic diastolic (congestive) heart failure; Y83.8 Other surgical procedures as the cause of abnormal reaction of the patient, or of later complication, without mention of misadventure at the time of the procedure; N18.31 Chronic kidney disease, stage 3a; D63.1 Anemia in chronic kidney disease; Z20.822 Contact with and (suspected) exposure to COVID-19; Z88.0 Allergy status to penicillin; Z87.891 Personal history of nicotine dependence; Z79.51 Long term (current) use of inhaled steroids; Z79.899 Other long term (current) drug therapy
CPT/HCPCS: 0241U; 36415; 36573; 80048; 80202; 82565; 82947; 85025; 87040; 87635; 94640; 97110; 97116; 97162; 97166; 97530; 97535; C1751; J0131; J0878; J1100; J1170; J1642; J1650; J2250; J2405; J2795; J3010; J3370; J3371

== ENCOUNTER 2022-08-28 16:53 | Outpatient (REF) | payer BC, SELFPAY ==
--- NOTE | ~2022-08-28 | XR_ITS ---
EXAMINATION: XR ANKLE, LEFT CLINICAL INFORMATION: Pain in left ankle and joints of left foot COMPARISON: 08/09/2022 TECHNIQUE: AP, lateral, and mortise views of the left ankle. FINDINGS: Interval ORIF of previously seen trimalleolar fracture with sideplate and screw fixation of the distal fibula. There is a tunnel across the distal ulna and tibia. There is a linear ossific fragment suggesting an avulsion fracture from the medial talus. New skin kaylynn. There is persistent widening of the medial clear space to 8mm. Persistent soft tissue swelling. Moderate plantar calcaneal osteophyte. XR/XR ankle LT min 3V IMPRESSION: Interval ORIF of previously seen trimalleolar fracture with persistent soft tissue swelling and widening of the medial clear space.
== END 2022-08-28 16:54 | disposition home or self-care (01) ==
LOC: HO.HOSX 16:53
PROVIDERS: Visit Provider Physician Assistant
DX: L03.90 Cellulitis, unspecified (principal); S82.852D Displaced trimalleolar fracture of left lower leg, subsequent encounter for closed fracture with routine healing; T81.31XD Disruption of external operation (surgical) wound, not elsewhere classified, subsequent encounter
CPT/HCPCS: 73610

== ENCOUNTER 2022-09-12 06:50 | Outpatient (REF) | payer BC, SELFPAY ==
--- NOTE | ~2022-09-12 | XR_ITS ---
EXAMINATION: XR ANKLE, LEFT CLINICAL INFORMATION: Pain COMPARISON: Prior study 08/28/2022 TECHNIQUE: AP, lateral, and mortise views of the left ankle. FINDINGS: Plate and multiple screws across fracture line of the distal fibula. Redemonstration of widening of the ankle mortise medially raise concern for possible underlying interosseous ligamental injury. Periosteal reaction and new bone formation. There is inferior calcaneal spur, there are degenerative osteoarthritic changes of the intertarsal and tarsometatarsal level. XR/XR ankle LT min 3V IMPRESSION: * ORIF distal fibular fracture. * Redemonstration of widening of the ankle mortise medially raise concern for possible underlying interosseous ligamental injury. MRI could be utilized for further investigation if indicated. * Underlying degenerative osteoarthritis. * Inferior calcaneal spur.
== END 2022-09-12 06:51 | disposition home or self-care (01) ==
LOC: HO.HOSX 06:50
PROVIDERS: Visit Provider Physician Assistant
DX: T81.31XA Disruption of external operation (surgical) wound, not elsewhere classified, initial encounter (principal); S82.852A Displaced trimalleolar fracture of left lower leg, initial encounter for closed fracture
CPT/HCPCS: 73610

== ENCOUNTER 2022-09-26 05:52 | Outpatient (REF) | payer BC, SELFPAY ==
--- NOTE | ~2022-09-26 | XR_ITS ---
EXAMINATION: XR ANKLE, LEFT CLINICAL INFORMATION: Pain in left ankle COMPARISON: Multiple prior radiographs most recent 09/12/2022. TECHNIQUE: AP, lateral, and mortise views of the left ankle. FINDINGS: Stable postoperative changes in the distal fibula and tibia. No hardware fracture or surrounding lucency. Persistent widening of the medial clear space, unchanged. Small ossification along the distal end of the clear space compatible with small displaced fracture fragment or heterotopic ossification, unchanged. Fibula fracture inconspicuous, unchanged compared to prior likely in part related to overlying bone and plate fixation on the lateral projection and likely due to at least some callus formation on the AP projection. Prominent callus and/or ossification noted posterior to the fibula and tibia on the lateral projection, unchanged. Persistent ossification noted dorsal to the head of the talus. unchanged. Calcaneal spurs. XR/XR ankle LT min 3V IMPRESSION: 1. Stable appearance of the left ankle compared with 09/12/2022 status post ankle fracture/subluxation. Healing distal fibular fracture. 2. Persistent widening of the medial clear space unchanged indicative of underlying ligamentous insufficiency related to ligament tear or possible avulsion fracture at the talar attachment of the deltoid ligament. Small osseous fragment noted along the distal end of the medial clear space.
== END 2022-09-26 05:53 | disposition home or self-care (01) ==
LOC: HO.HOSX 05:52
PROVIDERS: Visit Provider Physician Assistant
DX: T81.31XD Disruption of external operation (surgical) wound, not elsewhere classified, subsequent encounter (principal)
CPT/HCPCS: 73610

== ENCOUNTER 2022-09-30 11:54 | Outpatient (RCR) | payer BC, SELFPAY | END 2022-11-08 16:00 | disposition home or self-care (01) | LOC: HO.WCC 11:54 | PROVIDERS: PCP Nurse Practitioner Family; Visit Provider Surgery | DX: L97.322 Non-pressure chronic ulcer of left ankle with fat layer exposed (principal); T81.31XD Disruption of external operation (surgical) wound, not elsewhere classified, subsequent encounter; R60.9 Edema, unspecified; I13.0 Hypertensive heart and chronic kidney disease with heart failure and stage 1 through stage 4 chronic kidney disease, or unspecified chronic kidney disease; N18.30 Chronic kidney disease, stage 3 unspecified; I50.30 Unspecified diastolic (congestive) heart failure; I73.00 Raynaud's syndrome without gangrene; Z91.198 Patient's noncompliance with other medical treatment and regimen for other reason; Z87.891 Personal history of nicotine dependence | CPT/HCPCS: 11042; 87070; 87205; 97597; 99212 ==

== ENCOUNTER → 2022-10-10 13:12 | Outpatient (BNVA) | payer BC, SELFPAY | PROVIDERS: PCP Nurse Practitioner Family; Visit Provider Physician Assistant | DX: Z13.89 Encounter for screening for other disorder (principal) ==

== ENCOUNTER 2022-11-11 10:22 | Outpatient (REF) | payer BC, SELFPAY ==
--- NOTE | ~2022-11-11 | XR_ITS ---
EXAMINATION: XR ANKLE, LEFT CLINICAL INFORMATION: Pain COMPARISON: 09/26/2022 TECHNIQUE: AP, lateral, and mortise views of the left ankle. FINDINGS: No new abnormalities compared to 09/26/2022. Again noted is a healing Liang B fracture of the distal fibula with intact lateral fixation plate and screws. There is chronic mild narrowing of the lateral tibiotalar joint space and persistent mild lateral talar subluxation (with widening of the medial clear space). Again noted are small ossific fragments in region of deltoid ligament. No interval displacement of the endobuttons for tight rope syndesmotic stabilization. There is heterotopic ossification/periosteal reaction along the posterior malleolus. No interval development of any suspicious periostitis or erosion. An old small ossific fragment projects dorsal to the talar head. Prominent prominent plantar calcaneal enthesophyte. XR/XR ankle LT min 3V IMPRESSION: * No loosening of the fixation hardware. * There is lateral talar subluxation within the mortise with persistent widening of the medial clear space as observed on 09/26/2022. This suggests deltoid ligament insufficiency.
== END 2022-11-11 10:23 | disposition home or self-care (01) ==
LOC: HO.HOSX 10:22
PROVIDERS: Visit Provider Physician Assistant
DX: S82.852A Displaced trimalleolar fracture of left lower leg, initial encounter for closed fracture (principal)
CPT/HCPCS: 73610

== ENCOUNTER 2022-12-13 08:47 | Outpatient (REF) | payer BC, SELFPAY ==
--- NOTE | ~2022-12-13 | XR_ITS ---
EXAMINATION: XR ANKLE, LEFT CLINICAL INFORMATION: Fracture COMPARISON: Previous x-ray most recent October 2022 TECHNIQUE: AP, lateral, and mortise views of the left ankle. FINDINGS: There is a plate and screws transfixing the distal fibular shaft fracture. Fracture line still seen. There is adjacent bony callus formation. There are and abutting the distal tibia and fibula. There is periosteal reaction and cortical thickening along the posterior malleolus. There is widening of the ankle mortise medially. There is soft tissue calcification or ossification in the medial tibiotalar joint. The bones are osteopenic. There are calcaneal spurs. There is diffuse soft tissue swelling. XR/XR ankle LT min 3V IMPRESSION: Stable postoperative changes to the distal fibula and tibia. Healing distal fibular shaft fracture. Widened medial ankle mortise.
== END 2022-12-13 08:48 | disposition home or self-care (01) ==
LOC: HO.HOSX 08:47
PROVIDERS: Visit Provider Physician Assistant
DX: M25.572 Pain in left ankle and joints of left foot (principal); S82.852D Displaced trimalleolar fracture of left lower leg, subsequent encounter for closed fracture with routine healing; X58.XXXD Exposure to other specified factors, subsequent encounter
CPT/HCPCS: 73610

== ENCOUNTER → 2022-12-26 14:18 | Outpatient (BNVA) | payer BC, SELFPAY | PROVIDERS: PCP Nurse Practitioner Family; Referring Provider Nurse Practitioner Family; Visit Provider Internal Medicine Cardiovascular Disease ==

== ENCOUNTER 2023-01-17 10:01 | Outpatient (REF) | payer BC, SELFPAY ==
[2023-01-17 10:22] LABS: MANUAL DIFF FLAG NO
[2023-01-17 11:03] LABS: Basophils Percent Auto 0.6 % (0-2); Eosinophils Absolute Auto 0.3 X10*3/uL (0.0-0.4); Eosinophils Percent Auto 4.8 % (0-4); Hematocrit 35.3 % (37.0-47.0); Hemoglobin 11.8 g/dl (12.0-16.0); Imm Gran Abs Auto 0.02 X10*3/uL (0.00-0.03); Imm Gran Pct Auto 0.4 % (0.0-0.4); Lymphocytes Absolute Auto 1.4 X10*3/uL (1.2-4.9); Lymphocytes Percent Auto 26.2 % (20-40); Mean Corpuscular HGB Conc 33.4 g/dl (31.0-35.0); Mean Corpuscular Hemoglobin 33.7 pg (27.0-33.0); Mean Corpuscular Volume 100.9 fL (80.0-98.0); Mean Platelet Volume 10.1 fL (9.4-12.3); Monocytes Absolute Auto 0.6 X10*3/uL (0.1-1.2); Monocytes Percent Auto 10.7 % (2-11); Neutrophils Absolute Auto 3.1 x10*3/uL (2.0-8.3); Neutrophils Percent Auto 57.3 % (45-73); Platelet Count 279 X10*3/uL (160-400); Red Cell Distribution Width 13.2 % (11.0-16.0); White Blood Count 5.4 X10*3/uL (4.8-10.8)
[2023-01-17 11:35] LABS: Alanine Aminotransferase 12 U/L (0-31); Alkaline Phosphatase 79 U/L (39-117); Anion Gap 15 (12-20); Aspartate Amino Transferase 18 U/L (5-31); Bilirubin Total 0.4 mg/dL (0.0-1.0); Blood Urea Nitrogen 25 mg/dL (9-16); Calcium 9.5 mg/dL (8.4-10.2); Carbon Dioxide 29 mmol/L (22-29); Chloride 104 mmol/L (96-108); Cholesterol 274 mg/dL; Estimated Glomerular Filt Rate 54; Glucose Fasting 92 mg/dL (60-99); HDL Cholesterol 69 mg/dL; LDL Cholesterol Calculated 189 mg/dl; Potassium 4.5 mmol/L (3.3-5.1); Sodium 143 mmol/L (135-145); Total Protein 6.6 g/dL (6.5-8.0); Triglycerides 84 mg/dL
[2023-01-17 11:49] LABS: Erythrocyte Sedimentation Rate 31 MM/HR (0-20)
[2023-01-24 18:33] LABS: Acetylcholine Receptor Binding <0.30 nmol/L
== END 2023-01-17 10:02 | disposition home or self-care (01) ==
LOC: HO.LAB 10:01
PROVIDERS: Visit Provider Nurse Practitioner Family
DX: M54.50 Low back pain, unspecified (principal); M54.2 Cervicalgia; E78.00 Pure hypercholesterolemia, unspecified
CPT/HCPCS: 36415; 80053; 80061; 83519; 85025; 85652

== ENCOUNTER 2023-01-21 08:00 | Outpatient (RCR) | payer BC, SELFPAY ==
--- NOTE | 2023-01-02 10:52 | MHC.PT.EP ---
[facility] [place] Office [place] Office [place] Office [address] Drea Chavez [address] [phone] F: [phone] F: [phone] F: [phone] F: [phone] Physical Therapy Plan of Care Date of Evaluation: Date of Surgery: 08/13/23 Diagnosis: TRIMALLEOLAR FRACTURE W/ ORIF Assessment: ON 08/09/22 LIVAN WAS PUSHING A GROCERY CART TO HER CAR AND THE GROUND WAS SLUSHY AND SHE SLIPPED AND FELL WITH FOOT UNDERNEATH HER. SHE UNDERWENT ORIF ON 08/13/22 AND WAS DCed TO STR. WHILE THERE SHE DEVELOPED AN INFECTION AND HER WOUND DEHISCED, SHE UNDERWENT DEBRIDEMENT AND PLACEMENT OF WOUND VAC. SHE NOW ARRIVES FOR PT FOR POST OP REHAB. SHE LIVES WITH HER MOTHER (SANYA) WHO IS MOSTLY INDEPENDENT. THERE ARE LOW STAIRS TO ENTER (4 ) AND SHE HAS A STAIR LIFT FOR THE BASEMENT. SHE REPORTS ALSO HAVING GRAB BARS IN THE BATHROOM AND SHOWER, A SHOWER CHAIR AND A MAINTENANCE SHOP TECHNICIAN UPON EXAM SHE DEMONSTRATES IMPAIRMENTS INCLUDING DECREASED ROM, DECREASED STRENGTH, INCREASED TISSUE TENSION AND SCAR FORMATION, ALTERED GAIT AND BALANCE AND INCREASED PAIN. FUNCTIONAL LIMITATIONS INCLUDE DECREASED ABILITY TO PERFORM HOMEMAKING AND SELF CARE TASKS, DECREASED ABILITY TO PERFORM NORMAL GAIT AND STAIR NEGOTIATION, INABILITY TO PERFORM WORK TASKS AND PARTICIPATE IN RECREATIONAL ACTIVITIES. SHE REPORTS SOME DISRUPTED SLEEP. Frequency and Duration: The patient will be seen 2 X WEEK FOR 4 WEEKS Short Term Goals: INITIATE HEP AND PROMOTE SELF MANAGEMENT OF SYMPTOMS BEGIN WEANING FROM BOOT TO ASO Inspector Screen Printing Goals: IMPROVE ANKLE ROM BY 50% OR MORE IN ALL DIRECTIONS 5/5 ANKLE STRENGTH EQUAL KATHY TO PERFORM RECIPROCAL GAIT ON STAIRS WITH PAIN NO GREATER THAN 2/10 TO RETURN TO FITNESS ROUTINE WITHOUT RESTRICTION Treatment Plan: Modalities to reduce pain, spasms and effusion. Manual therapy to restore motion and function. Therapeutic exercise to improve strength and flexibility. Neuromuscular re-education for posture and balance. Therapeutic activities to return to functional activities of daily living. Electronically signed by: ROSARIO DIETZ PT, DPT Please sign and return to therapist. Thank you for your referral.
--- NOTE | 2023-02-27 08:44 | MHC.PT.DC ---
[facility] [place] Office [place] Office [place] Office [address] Drea Chavez [address] [phone] F: [phone] F: [phone] F: [phone] F: [phone] Physical Therapy Discharge Report Diagnosis: TRIMALLEOLAR FRACTURE W/ ORIF Date of Surgery: 08/13/23 Date of Evaluation: 01/01/23 Date of Discharge: 02/27/23 Treatments to Date: 4 Cancellations to Date: 7 No Shows to Date: 1 Discharge Status: Discharge Summary: Brina has not attended therapy in over 30 days, she cancelled multiple visits due to illness and lack of transportation. She does have a home program to continue with independently at home. If further PT is indicated, home therapy may be a better option to allow for more regular sessions and improved progression. Electronically signed by: Yudelka Ramirez PT DPT Please sign and return to therapist. Thank you for your referral.
== END 2023-02-27 08:44 | disposition home or self-care (01) ==
LOC: HO.PT 08:00
PROVIDERS: PCP Nurse Practitioner Family; Visit Provider Physician Assistant
DX: S82.852D Displaced trimalleolar fracture of left lower leg, subsequent encounter for closed fracture with routine healing (principal)
CPT/HCPCS: 97110; 97140; 97161

== ENCOUNTER 2023-02-06 06:12 | Outpatient (REF) | payer BC, SELFPAY ==
--- NOTE | ~2023-02-06 | XR_ITS ---
EXAMINATION: XR ANKLE, LEFT CLINICAL INFORMATION: Status post left ankle ORIF. Left ankle pain. COMPARISON: December 13, 2022. TECHNIQUE: AP, lateral, and mortise views of the left ankle. XR/XR ankle LT min 3V FINDINGS/IMPRESSION: There has been no significant radiographic change compared with December 13, 2022. The patient is status post ORIF, with metallic hardware projecting over the lateral lateral aspect of the fibula as well as medial aspect of the distal tibial diaphysis. The fractures appear healed, with associated fracture deformity. There may be widening of the tibiotalar articulation medially. Dystrophic calcification is seen in this region. There may be mild narrowing of the tibiotalar joint as well. Plantar and Achilles calcaneal spurs.,
== END 2023-02-06 06:13 | disposition home or self-care (01) ==
LOC: HO.HOSX 06:12
PROVIDERS: Visit Provider Physician Assistant
DX: M19.072 Primary osteoarthritis, left ankle and foot (principal); T81.31XA Disruption of external operation (surgical) wound, not elsewhere classified, initial encounter; Z87.81 Personal history of (healed) traumatic fracture; Z98.890 Other specified postprocedural states
CPT/HCPCS: 73610

== ENCOUNTER 2023-02-06 14:21 | Outpatient (REF) | payer BC, SELFPAY ==
--- NOTE | ~2023-02-06 | US_ITS ---
EXAMINATION: US VENOUS ULTRASOUND WITH DOPPLER LOWER EXTREMITY, LEFT CLINICAL INFORMATION: Left lower extremity edema COMPARISON: 05/08/2020 TECHNIQUE: Ultrasound of the deep veins is performed from the hip to the calf with compression sonography and color and pulse Doppler assessment. Spectral analysis with color-flow imaging is performed. FINDINGS: There is normal venous compression and respiratory variation and augmented flow. The visualized common femoral vein, superficial femoral vein, profunda femoral vein, popliteal vein, and the trifurcation region shows no evidence of deep venous thrombosis. There is no significant popliteal fossa cyst. There are prominent lymph nodes seen in the left inguinal region measuring up to 4 x 1 x 2.9 cm. If the patient's symptoms persist, followup ultrasound in 5 days 7 days might be of value to exclude proximal propagation from a non-visualized calf vein. US/US venous duplex LE IMPRESSION: No DVT demonstrated in the left lower extremity.
== END 2023-02-06 14:22 | disposition home or self-care (01) ==
LOC: HO.US 14:21
PROVIDERS: PCP Nurse Practitioner Family; Visit Provider Physician Assistant
DX: R60.0 Localized edema (principal)
CPT/HCPCS: 93971

== ENCOUNTER 2023-02-27 11:32 | Outpatient (REF) | payer BC, SELFPAY | END 2023-02-27 11:33 | disposition home or self-care (01) | LOC: HO.HOSX 11:32 | PROVIDERS: Visit Provider Orthopaedic Surgery | DX: L40.9 Psoriasis, unspecified (principal); T81.31XA Disruption of external operation (surgical) wound, not elsewhere classified, initial encounter; Z98.890 Other specified postprocedural states; Z87.81 Personal history of (healed) traumatic fracture | CPT/HCPCS: 73610 ==

== ENCOUNTER 2023-03-07 07:48 | Outpatient (RCR) | payer BC, SELFPAY | END 2023-04-18 10:34 | disposition home or self-care (01) | LOC: HO.WCC 07:48 | PROVIDERS: PCP Nurse Practitioner Family; Visit Provider Physician Assistant | DX: I87.332 Chronic venous hypertension (idiopathic) with ulcer and inflammation of left lower extremity (principal); L97.321 Non-pressure chronic ulcer of left ankle limited to breakdown of skin; I87.2 Venous insufficiency (chronic) (peripheral); I13.0 Hypertensive heart and chronic kidney disease with heart failure and stage 1 through stage 4 chronic kidney disease, or unspecified chronic kidney disease; N18.30 Chronic kidney disease, stage 3 unspecified; I50.30 Unspecified diastolic (congestive) heart failure; I73.00 Raynaud's syndrome without gangrene; Z87.891 Personal history of nicotine dependence | CPT/HCPCS: 97597; 97598; 99212 ==

== ENCOUNTER 2023-03-24 10:17 | Outpatient (REF) | payer BC, SELFPAY ==
--- NOTE | ~2023-03-24 | US_ITS ---
EXAMINATION: US VENOUS ULTRASOUND WITH DOPPLER LOWER EXTREMITY, LEFT CLINICAL: Venous insufficiency ulcer. TECHNIQUE: Ultrasound of the deep veins is performed from the left hip to the calf with compression sonography and color and pulse Doppler assessment. Spectral analysis with color-flow imaging is performed. LEFT SIDE: GREATER SAPHENOUS VEIN: The left saphenofemoral junction diameter is 0.9 cm. There is no reflux. The left proximal thigh diameter is 0.7 cm. There is no reflux. The left mid thigh diameter is 0.5 cm. There is no reflux. The left above-knee diameter is 0.4 cm. There is no reflux. The left at-knee diameter is 0.4 cm. There is no reflux. The left below-knee diameter is 0.4 cm. There is no reflux. The left mid calf diameter is 0.4 cm. There is no reflux. The left ankle diameter is 0.3 cm. There is no reflux. LATERAL ACCESSORY GREATER SAPHENOUS VEIN: The left saphenofemoral junction diameter is 0.4 cm. There is no reflux The left mid thigh diameter is 0.3 cm. There is no reflux. LESSER SAPHENOUS VEIN: The left saphenopopliteal junction diameter is 0.4 cm. There is no reflux. The left mid calf diameter is 0.4 cm. There is no reflux. The left distal calf diameter is 0.4 cm. There is no reflux. LEFT DEEP VENOUS SYSTEM: There is no deep venous thrombosis or reflux on the left. US/US venous duplex LE LT IMPRESSION: No hemodynamically significant reflux is seen of the left greater or lesser saphenous veins.
== END 2023-03-24 10:18 | disposition home or self-care (01) ==
LOC: HO.US 10:17
PROVIDERS: Visit Provider Physician Assistant
DX: I87.2 Venous insufficiency (chronic) (peripheral) (principal)
CPT/HCPCS: 93971

== ENCOUNTER 2023-03-25 14:22 | Outpatient (AMB) | payer BC, SELFPAY ==
--- NOTE | 2023-03-25 14:30 | MHC.OFFWIV ---
Intake Vital Signs 03/25/23 14:35 Height 5 ft 4 in BP 130/60 Blood Pressure Location Lt brachial Position Sitting Pulse 78 Pulse Source Pulse Oximeter Temp 97.2 F Temp Source Temporal Artery Scan Pulse Oximetry (%) 98 Oxygen Delivery Method Room Air Intake Visit Reasons: EST/ left foot wound not healing Patient Tobacco Use Status: Former Tobacco user Quit Date: 25 yrs ago Allergies shrimp Allergy (Severe, Verified 03/26/23 08:43) Anaphylaxis Penicillins Allergy (Unknown, Verified 03/26/23 08:43) UNKNOWN levofloxacin [From Levaquin] Allergy (Verified 03/26/23 08:43) Hypertension paroxetine [From Paxil] Allergy (Verified 03/26/23 08:43) Unknown prochlorperazine [From Compazine] Allergy (Verified 03/26/23 08:43) Unknown tripoly phosphate Allergy (Uncoded 03/26/23 08:43) Anaphylaxis Medication List - Last Reconciled 03/26/23 by Samir Dave MD [3 in 1 commode Displaced trimalleolar fracture of left lower leg, initial encounter for closed fracture] acetaminophen 650 mg (2 x 325 mg) PO Q4H PRN 30 days albuterol sulfate 90 mcg/actuation 2 puffs inhalation Q6H PRN atorvastatin 40 mg PO DAILY carvedilol 25 mg PO BID [Chair Glider As directed Urgent request US medical supply RE: Remi Mark Phone number: [phone]] clonidine HCl 2 tabs PO BEDTIME cyanocobalamin (vitamin B-12) 1 tab PO DAILY diphenhydramine HCl (Benadryl) 25 mg PO DAILY epinephrine 0.3 mg (0.3 mL) IM Q20M PRN ferrous sulfate 325 mg PO DAILY fluticasone propion-salmeterol 250-50 mcg/dose (Wixela Inhub) 1 inh inhalation BID folic acid 1 mg PO DAILY furosemide 20 mg PO MOWEFR@0900 lorazepam 0.5 mg PO BEDTIME losartan 25 mg PO DAILY pantoprazole 40 mg PO DAILY [Raised toilet seat As directed] sertraline 50 mg PO DAILY spironolactone 25 mg PO DAILY sulfamethoxazole-trimethoprim 800-160 mg (Bactrim DS) 1 tab PO BID 7 days trazodone 50 mg PO BEDTIME Do you need a note to return to daycare/school/sports/work: No HPI EST/ left foot wound not healing HPI Details 73-year-old female presents to the office for a sick visit. Patient has a chronic wound in the right leg. This is after an ankle fracture and surgery. Patient is had multiple infections around the ankle. She believes that she has an infection again in the same area in the past few days. Patient is reporting symptoms of pain and swelling in the right ankle. No recent fall or injury. [facility] Medical History (HFpEF) heart failure with preserved ejection fraction Acute CHF Arthritis Asthma Chronic kidney disease (CKD) stage G3a/A1, moderately decreased glomerular filtration rate (GFR) between 45-59 mL/min/1.73 square meter and albuminuria creatinine ratio less than 30 mg/g COPD (chronic obstructive pulmonary disease) COPD (chronic obstructive pulmonary disease) Diverticulosis Essential hypertension GERD (gastroesophageal reflux disease) Gout Hepatic steatosis HTN (hypertension) Hypercholesteremia Inguinal hernia Occult fracture Other and unspecified hyperlipidemia Sliding hiatal hernia Uncontrolled hypertension Wound cellulitis Surgical History History of total left knee replacement Hx of rotator cuff surgery Hx of tonsillectomy Family History Father CHF (congestive heart failure) Mother CHF (congestive heart failure) Social History Household Members: Family Household Members Other:: mother Housing: House Do you presently have visiting nurse or other home services: No Alcohol intake: current Alcohol intake frequency: does not drink Alcohol type: wine Patient Tobacco Use Status: Former Tobacco user Quit Date: 25 yrs ago Second Hand Smoke Exposure: No Advance Directives Date on File: 12/04/20 service: No Current occupational status: employed 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 Slightly tender to touch. Assessment & Plan Assessment & Plan (1) Cellulitis of right ankle: Code(s): L03.115 - Cellulitis of right lower limb Plan: Antibiotics have been called in. Appears to be a chronic wound. Patient is also being followed up by the wound clinic. Medications: New sulfamethoxazole-trimethoprim 800-160 mg (Bactrim DS) 1 tab PO BID 7 days 14 tabs 0RF Coding Level of Care Code Est Pt Level 3 (45252) Diagnoses Cellulitis of right ankle L03.115
[2023-03-25 14:35] VITALS: BP 130/60; PULSE 78; TEMP 36.2; O2SAT 98
== END 2023-03-25 15:37 | disposition home or self-care (01) ==
PROVIDERS: PCP Nurse Practitioner Family; Visit Provider Internal Medicine
DX: L03.115 Cellulitis of right lower limb (principal)
CPT/HCPCS: 99213

== ENCOUNTER 2023-04-25 09:49 | Outpatient (REF) | payer BC, SELFPAY ==
--- NOTE | ~2023-04-25 | XR_ITS ---
EXAMINATION: XR ANKLE, LEFT CLINICAL INFORMATION: Status post left ankle ORIF. Left ankle pain. COMPARISON: February 27, 2023. TECHNIQUE: AP, lateral, and mortise views of the left ankle. XR/XR ankle LT min 3V FINDINGS/IMPRESSION: There has been no significant radiographic change compared with February 27, 2023. The patient is status post ORIF, with metallic hardware projecting over the lateral lateral aspect of the fibula as well as medial aspect of the distal tibial diaphysis. No evidence of hardware fracture or loosening. The bony fractures appear healed, with associated fracture deformity. There may be widening of the tibiotalar articulation medially, unchanged. Dystrophic calcification is seen in this region, unchanged. There may be mild narrowing of the tibiotalar joint as well, unchanged. Plantar calcaneal spur.
== END 2023-04-25 09:50 | disposition home or self-care (01) ==
LOC: HO.HOSX 09:49
PROVIDERS: Visit Provider Orthopaedic Surgery
DX: M25.572 Pain in left ankle and joints of left foot (principal); T81.31XA Disruption of external operation (surgical) wound, not elsewhere classified, initial encounter; L40.9 Psoriasis, unspecified; Z98.890 Other specified postprocedural states; Z87.81 Personal history of (healed) traumatic fracture
CPT/HCPCS: 73610

== ENCOUNTER 2023-04-25 12:22 | Outpatient (AMB) | payer BC, SELFPAY ==
--- NOTE | 2023-04-25 12:33 | MHC.OFFVIS ---
Intake Intake Visit Reasons: OV- LT ankle I&D, 08/29/22 NE F/U Intake Note: Berta is a 73 year old female who presents today for a follow up of her left ankle, history of Left ankle I&D, 08/29/22. Patient reports that she is doing better, her pain level is reported as a 4.5. She had a second flair up of Cellulitis in February where she was placed on Bactrim. Allergies shrimp Allergy (Severe, Verified 03/26/23 08:43) Anaphylaxis Penicillins Allergy (Unknown, Verified 03/26/23 08:43) UNKNOWN levofloxacin [From Levaquin] Allergy (Verified 03/26/23 08:43) Hypertension paroxetine [From Paxil] Allergy (Verified 03/26/23 08:43) Unknown prochlorperazine [From Compazine] Allergy (Verified 03/26/23 08:43) Unknown tripoly phosphate Allergy (Uncoded 03/26/23 08:43) Anaphylaxis HPI OV- LT ankle I&D, 08/29/22 NE F/U HPI Details Berta is a 73 year old woman who presents S/P left ankle ORIF lateral malleolous & syndesmosis. DOS: 08/14/22, and S/P left ankle I&D, DOS: 08/29/22. She continues to have some pain in her ankle with activity, but she says this has much improved since her last appointment. She continues to walk comfortably with her walker and says she has started a walking program in her neighborhood. She had a second flare-up of cellulitis in February, and this was treated with a course of Bactrim. She denies Diabetes but says she has always had difficulty with delayed wound healing, which began in the 70's while she was in the [employer]. 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 [facility] Medical History (HFpEF) heart failure with preserved ejection fraction Acute CHF Arthritis Asthma Chronic kidney disease (CKD) stage G3a/A1, moderately decreased glomerular filtration rate (GFR) between 45-59 mL/min/1.73 square meter and albuminuria creatinine ratio less than 30 mg/g COPD (chronic obstructive pulmonary disease) COPD (chronic obstructive pulmonary disease) Diverticulosis Essential hypertension GERD (gastroesophageal reflux disease) Gout Hepatic steatosis HTN (hypertension) Hypercholesteremia Inguinal hernia Occult fracture Other and unspecified hyperlipidemia Sliding hiatal hernia Uncontrolled hypertension Wound cellulitis Surgical History History of total left knee replacement Hx of rotator cuff surgery Hx of tonsillectomy Family History Father CHF (congestive heart failure) Mother CHF (congestive heart failure) Social History Household Members: Family Household Members Other:: mother Housing: House Do you presently have visiting nurse or other home services: No Alcohol intake: current Alcohol intake frequency: does not drink Alcohol type: wine Patient Tobacco Use Status: Former Tobacco user Quit Date: 25 yrs ago Second Hand Smoke Exposure: No Advance Directives Date on File: 12/04/20 service: No Current occupational status: employed 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, 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 Review of Systems Const All systems reviewed & are unremarkable except as noted in HPI and below Physical Exam Const General: no acute distress and alert Orientation/consciousness: patient oriented x3 HEENT Head: Yes normocephalic and Yes atraumatic Eyes EOM: EOMs intact bilaterally Resp Effort & Inspection: normal respiratory effort and able to speak in complete sentences Cardio Jugular venous distension: no JVD Skin General skin exam: turgor normal Rashes: no rashes Neuro General: patient oriented x3 Extrem Other: Left Ankle: Inc c/d/i mild effusion skin changes ( basline) c/w chronic psoriatic ? condition Psych Appearance: grossly normal Affect: normal affect Attitude: cooperative Results Reviewed Results Reviewed: I personally reviewed relevant radiographs. Stable postoperative changes to the distal fibula and tibia. Healed distal fibular shaft fracture. No hardware complications. Assessment & Plan Assessment & Plan (1) Status post ORIF of fracture of ankle: Code(s): Z98.890 - Other specified postprocedural states; Z87.81 - Personal history of (healed) traumatic fracture Plan: This is a 73 year old woman S/P left ankle ORIF, DOS: 08/14/22 & S/P ankle I&D, DOS: 08/29/22. Her incision well-healed and she has finished a recent repeat course of oral Abx, with improvement. She continues to have some pain with activity, but says this is much improved. She remains active and uses a cane or walker, and says she recently started a walking program in her neighborhood. I recommend she continue to remain active. She was given a note to remain out of work until 05/25/23. (2) Surgical wound breakdown: Code(s): T81.31XA - Disruption of external operation (surgical) wound, not elsewhere classified, initial encounter (3) Psoriasis: Code(s): L40.9 - Psoriasis, unspecified Plan Scribed for Chino Trimble MD by Frank Lomeli, remote medical coder, on 04/25/23 at 1:15 PM, EST. Orders: Orders XR ankle LT min 3V 04/25/23 M25.579 - Pain in unspecified ankle and joints of unspecified foot Coding Level of Care Code Est Pt Level 3 (41689) Diagnoses Status post ORIF of fracture of ankle Z98.890; Z87.81 Surgical wound breakdown T81.31XA Psoriasis L40.9
== END 2023-04-25 13:18 | disposition home or self-care (01) ==
PROVIDERS: PCP Nurse Practitioner Family; Visit Provider Orthopaedic Surgery
DX: T81.31XA Disruption of external operation (surgical) wound, not elsewhere classified, initial encounter (principal); Z87.81 Personal history of (healed) traumatic fracture; L40.9 Psoriasis, unspecified
CPT/HCPCS: 99213

== ENCOUNTER 2023-06-24 15:04 | Outpatient (AMB) | payer BC, SELFPAY ==
[2023-06-24 15:56] VITALS: BP 160/92; PULSE 65; TEMP 36.8; O2SAT 100; BMI 37.5
--- NOTE | 2023-06-24 15:56 | AM.OFFWIN_ITS ---
Intake Vital Signs 06/24/23 15:56 Height 5 ft 4 in Weight 218 lb 6 oz BMI 37.5 BP 160/92 H Blood Pressure Location Lt brachial Position Sitting Pulse 65 Pulse Source Pulse Oximeter Temp 98.2 F Temp Source Oral Pulse Oximetry (%) 100 Oxygen Delivery Method Room Air Intake Visit Reasons: EST/both feet infection(lobby) Intake Note: pt is her for infection on both her ankles and her feet it is worse on her left she says the pain is 8.5 pt says it started to clear in February but it started to get worse again Patient Tobacco Use Status: Former Tobacco user Quit Date: 25 yrs ago Allergies shrimp Allergy (Severe, Verified 06/26/23 05:41) Anaphylaxis Penicillins Allergy (Unknown, Verified 06/26/23 05:41) UNKNOWN levofloxacin [From Levaquin] Allergy (Verified 06/26/23 05:41) Hypertension paroxetine [From Paxil] Allergy (Verified 06/26/23 05:41) Unknown prochlorperazine [From Compazine] Allergy (Verified 06/26/23 05:41) Unknown tripoly phosphate Allergy (Uncoded 06/26/23 05:41) Anaphylaxis Medication List - Last Reconciled 06/26/23 by Samir Dave MD [3 in 1 commode Displaced trimalleolar fracture of left lower leg, initial encounter for closed fracture] acetaminophen 650 mg (2 x 325 mg) PO Q4H PRN 30 days albuterol sulfate 90 mcg/actuation 2 puffs inhalation Q6H PRN atorvastatin 40 mg PO DAILY betamethasone dipropionate 0.05% 1 appl topical DAILY carvedilol 25 mg PO BID [Chair Glider As directed Urgent request US medical supply RE: Remi Mark Phone number: [phone]] clonidine HCl 2 tabs PO BEDTIME diphenhydramine HCl (Benadryl) 25 mg PO DAILY epinephrine 0.3 mg (0.3 mL) IM Q20M PRN ferrous sulfate 325 mg PO DAILY fluticasone propion-salmeterol 250-50 mcg/dose (Wixela Inhub) 1 inh inhalation BID folic acid 1 mg PO DAILY furosemide 20 mg PO MOWEFR@0900 lorazepam 0.5 mg PO BEDTIME losartan 25 mg PO DAILY meloxicam 15 mg PO DAILY pantoprazole 40 mg PO DAILY [Raised toilet seat As directed] sertraline 50 mg PO DAILY spironolactone 25 mg PO DAILY sulfamethoxazole-trimethoprim 800-160 mg (Bactrim DS) 1 tab PO BID 10 days trazodone 50 mg PO BEDTIME HPI EST/both feet infection(lobby) HPI Details 73-year-old female presents to the [facility] for a sick visit. Patient has chronic eczema in both her right and left legs. Recently her left leg eczema has gotten worse and the lesions have started weeping and they have become painful. She has had chronic infections in the leg in the past. She stopped using the Business Operations Manager prescribed steroid cream. [facility] Medical History (HFpEF) heart failure with preserved ejection fraction Acute CHF Arthritis Asthma Chronic kidney disease (CKD) stage G3a/A1, moderately decreased glomerular filtration rate (GFR) between 45-59 mL/min/1.73 square meter and albuminuria creatinine ratio less than 30 mg/g COPD (chronic obstructive pulmonary disease) COPD (chronic obstructive pulmonary disease) Diverticulosis Essential hypertension GERD (gastroesophageal reflux disease) Gout Hepatic steatosis HTN (hypertension) Hypercholesteremia Inguinal hernia Occult fracture Other and unspecified hyperlipidemia Sliding hiatal hernia Uncontrolled hypertension Wound cellulitis Surgical History History of total left knee replacement Hx of rotator cuff surgery Hx of tonsillectomy Family History Father CHF (congestive heart failure) Mother CHF (congestive heart failure) Social History Household Members: Family Household Members Other:: mother Housing: House Do you presently have visiting nurse or other home services: No Alcohol intake: current Alcohol intake frequency: does not drink Alcohol type: wine Patient Tobacco Use Status: Former Tobacco user Quit Date: 25 yrs ago Second Hand Smoke Exposure: No Advance Directives Date on File: 12/04/20 service: No Current occupational status: employed 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 Tenderness along the edges of the wound. Assessment & Plan Assessment & Plan (1) Cellulitis of leg, left: Code(s): L03.116 - Cellulitis of left lower limb Plan: Antibiotics called in. Symptoms do not improve to follow-up here. Medications: New meloxicam 15 mg PO DAILY 14 tabs 0RF betamethasone dipropionate 0.05% 1 appl topical DAILY 60 mL 0RF sulfamethoxazole-trimethoprim 800-160 mg (Bactrim DS) 1 tab PO BID 10 days 20 tabs 0RF Coding Level of Care Code Est Pt Level 3 (61625) Diagnoses Cellulitis of leg, left L03.116
== END 2023-06-24 16:50 | disposition home or self-care (01) ==
PROVIDERS: PCP Nurse Practitioner Family; Visit Provider Internal Medicine
DX: L03.116 Cellulitis of left lower limb (principal)
CPT/HCPCS: 99213

== ENCOUNTER 2023-08-29 09:08 | Outpatient (AMB) | payer BC, SELFPAY ==
[2023-08-29 09:20] VITALS: BP 120/60; PULSE 68; BMI 38.3
--- NOTE | 2023-08-29 09:20 | MHC.OFFVIS ---
Intake Vital Signs 08/29/23 09:20 Height 5 ft 4 in Weight 223 lb 1.725 oz BMI 38.3 BP 120/60 Blood Pressure Location Lt brachial Position Sitting Pulse 68 Intake Visit Reasons: 6 mth f/up Intake Note: 6 mnth f/up pt its feeling fine On Air Director Required: No Accompanied by: Self / Same As Patient Allergies shrimp Allergy (Severe, Verified 06/26/23 05:41) Anaphylaxis Penicillins Allergy (Unknown, Verified 06/26/23 05:41) UNKNOWN levofloxacin [From Levaquin] Allergy (Verified 06/26/23 05:41) Hypertension paroxetine [From Paxil] Allergy (Verified 06/26/23 05:41) Unknown prochlorperazine [From Compazine] Allergy (Verified 06/26/23 05:41) Unknown tripoly phosphate Allergy (Uncoded 06/26/23 05:41) Anaphylaxis Medication List - Last Reconciled 08/29/23 by Wayne Gilmore MD [3 in 1 commode Displaced trimalleolar fracture of left lower leg, initial encounter for closed fracture] acetaminophen 650 mg (2 x 325 mg) PO Q4H PRN 30 days albuterol sulfate 90 mcg/actuation 2 puffs inhalation Q6H PRN atorvastatin 40 mg PO DAILY betamethasone dipropionate 0.05% 1 appl topical DAILY carvedilol 25 mg PO BID [Chair Glider As directed Urgent request US medical supply RE: Remi Flores Phone number: [phone]] clonidine HCl 2 tabs PO BEDTIME diphenhydramine HCl (Benadryl) 25 mg PO DAILY epinephrine 0.3 mg (0.3 mL) IM Q20M PRN ferrous sulfate 325 mg PO DAILY fluticasone propion-salmeterol 250-50 mcg/dose (Wixela Inhub) 1 inh inhalation BID folic acid 1 mg PO DAILY furosemide 20 mg PO MOWEFR@0900 gabapentin 100 mg PO TID lorazepam 0.5 mg PO BEDTIME losartan 25 mg PO DAILY pantoprazole 40 mg PO DAILY [Raised toilet seat As directed] sertraline 50 mg PO DAILY spironolactone 25 mg PO DAILY trazodone 50 mg PO BEDTIME HPI HPI Comments History of Present Illness Details Binta comes for follow-up. She has been doing well overall. She says she has been gaining weight since last time I saw her. She also occasionally notices spikes in her blood pressure and she knows that this is due to higher salt intake. She denies any worsening heart failure symptoms. Denies any orthopnea, PND, leg edema. Has had 3 bouts of cellulitis in the recent past. She denies any prolonged palpitation irregular heartbeat. No exertional chest pain. No lightheadedness, syncope. Blood pressure is generally well controlled. She is walking more frequently and without support. [facility] Medical History Diverticulosis GERD (gastroesophageal reflux disease) Occult fracture Acute CHF Hepatic steatosis COPD (chronic obstructive pulmonary disease) Uncontrolled hypertension HTN (hypertension) (HFpEF) heart failure with preserved ejection fraction Other and unspecified hyperlipidemia Essential hypertension Inguinal hernia Sliding hiatal hernia COPD (chronic obstructive pulmonary disease) Asthma Gout Arthritis Hypercholesteremia Chronic kidney disease (CKD) stage G3a/A1, moderately decreased glomerular filtration rate (GFR) between 45-59 mL/min/1.73 square meter and albuminuria creatinine ratio less than 30 mg/g Wound cellulitis Surgical History Hx of tonsillectomy Hx of rotator cuff surgery History of total left knee replacement Family History Father CHF (congestive heart failure) Mother CHF (congestive heart failure) Social History Household Members: Family Household Members Other:: mother Housing: House Do you presently have visiting nurse or other home services: No Alcohol intake: current Alcohol intake frequency: does not drink Alcohol type: wine Comment: pt rings appropriately Patient Tobacco Use Status: Former Tobacco user Quit Date: 25 yrs ago Second Hand Smoke Exposure: No Advance Directives Date on File: 12/04/20 service: No Current occupational status: employed 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, 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 Review of Systems Const Reports chills, Reports fatigue, Reports fever(s), Reports frequent falls, Reports weakness, Reports weight gain and Reports weight loss ENT Reports dizziness Card Reports chest pain, Reports leg edema, Reports lightheadedness, Reports palpitations, Reports dyspnea and Reports dyspnea on exertion Resp Reports cough, Reports dyspnea and Reports dyspnea on exertion GI Reports hematochezia Musc Reports abnormal gait, Reports muscle weakness, Reports numbness, Reports radiating pain into limb and Reports tingling Neuro Reports abnormal gait, Reports dizziness, Reports frequent falls, Reports numbness, Reports tingling and Reports weakness Endo Reports fatigue and Reports palpitations Physical Exam Vital Signs: Last Vital Signs Pulse 68 08/29/23 09:20 BP 120/60 08/29/23 09:20 BMI result Body Mass Index 38.3 Const General: cooperative, comfortable, no acute distress, alert and awake Nutritional Appearance: obese Orientation/consciousness: patient oriented x3 Limitations: wheelchair Neck Neck: Yes trachea midline, Yes supple and Yes no JVD Resp Effort & Inspection: normal respiratory effort Auscultation: clear to auscultation bilaterally Cardio Jugular venous distension: no JVD Palpation: normal PMI Rate: regular rate Rhythm: regular rhythm Heart sounds: S1 normal heart sound present, S2 normal heart sound present, no click, no gallops, no murmurs and no rubs GI Auscultation: normal bowel sounds Skin General skin exam: no rashes or lesions noted Neuro General: patient oriented x3 and no focal motor deficits Extrem General: No clubbing, No cyanosis, No edema and Yes pedal edema Office Procedures EKG Details: EKG shows normal sinus rhythm normal EKG [id number], Complete Assessment & Plan Assessment & Plan (1) CHF (congestive heart failure): Code(s): I50.9 - Heart failure, unspecified Plan: Heart failure preserved ejection fraction, clinically euvolemic and well compensated. She is currently on low-dose diuretic therapy. Management of heart failure was discussed. Daily weight monitoring avoidance of salt loading was discussed especially avoiding sudden salt loading which can precipitate heart failure. Continue aggressive blood pressure control which is currently well optimized. Will follow-up echocardiogram 1 year's time time. Continue spironolactone therapy for neurohormonal modulation. Semi annual renal function test should be pursued. She gets regular blood work through [facility] user [employer] [facility] office for her CKD. (2) Labile blood pressure: Code(s): R09.89 - Other specified symptoms and signs involving the circulatory and respiratory systems Plan: Markedly labile blood pressure in the past currently well controlled on current therapy. Has much improved. Advised to avoid salt loading. Continue current therapy. Continue participate in weight loss program. Stress mitigation strategies were discussed. Also notice significantly elevated LDL despite 40 mg of atorvastatin. Have taken the liberty to increase it to 80 mg atorvastatin add Zetia 10 mg to regimen. Follow-up lipid panel in 3 months time to target goal LDL at least below 100 mg/dL. If not achieved should consider PCSK9 inhibitor therapy. Will follow up in the clinic in 1 year's time, sooner p.r.n.. Thank you for allowing me to partake in her care Orders: Orders CA echo transthoracic complete 50 Weeks I50.9 - Heart failure, unspecified Lipid Panel 3 Months I25.10 - Atherosclerotic heart disease of [place] coronary artery without angina pectoris, R09.89 - Other specified symptoms and signs involving the circulatory and respiratory systems Medications: New ezetimibe (Zetia) 10 mg PO DAILY 90 tabs 3RF atorvastatin (Lipitor) 80 mg PO DAILY 90 tabs 3RF Coding Level of Care Code Est Pt Level 4 (35742) Diagnoses CHF (congestive heart failure) I50.9 Labile blood pressure R09.89 CPT Codes EKG - CPT: 46297-[id number], Complete ([id number])
== END 2023-08-29 09:47 | disposition home or self-care (01) ==
PROVIDERS: PCP Nurse Practitioner Family; Visit Provider Internal Medicine Cardiovascular Disease
DX: I50.9 Heart failure, unspecified (principal); R09.89 Other specified symptoms and signs involving the circulatory and respiratory systems
CPT/HCPCS: 93010; 99214

== ENCOUNTER → 2023-08-29 09:08 | Outpatient (BNVA) | payer BC, SELFPAY | PROVIDERS: PCP Nurse Practitioner Family; Visit Provider Internal Medicine Cardiovascular Disease | DX: I50.30 Unspecified diastolic (congestive) heart failure (principal); R09.89 Other specified symptoms and signs involving the circulatory and respiratory systems; Z79.899 Other long term (current) drug therapy | CPT/HCPCS: 93005 ==

== ENCOUNTER 2024-02-04 10:54 | Outpatient (AMB) | payer BC, SELFPAY ==
--- NOTE | 2024-02-04 10:59 | A.OFFVIS_ITS ---
Vital Signs 3 02/04/24 11:01 Height 5 ft 4 in Weight 224 lb BMI 38.4 BP 114/54 L Blood Pressure Location Lt brachial Position Sitting Respiration 14 Pulse 76 Pulse Source Pulse Oximeter Pulse Oximetry (%) 99 Oxygen Delivery Method Room Air Intake Visit Reasons: Primary Osteoarthritis Left Ankle and Foot Allergies shrimp Allergy (Severe, Verified 02/04/24 11:03) Anaphylaxis Penicillins Allergy (Unknown, Verified 02/04/24 11:03) UNKNOWN levofloxacin [From Levaquin] Allergy (Verified 02/04/24 11:03) Hypertension paroxetine [From Paxil] Allergy (Verified 02/04/24 11:03) Unknown prochlorperazine [From Compazine] Allergy (Verified 02/04/24 11:03) Unknown tripoly phosphate Allergy (Uncoded 02/04/24 11:03) Anaphylaxis Medication List - Last Reconciled 02/04/24 by Umu Tanner LPN [3 in 1 commode Displaced trimalleolar fracture of left lower leg, initial encounter for closed fracture] acetaminophen 650 mg (2 x 325 mg) PO Q4H PRN 30 days albuterol sulfate 90 mcg/actuation 2 puffs inhalation Q6H PRN atorvastatin (Lipitor) 80 mg PO DAILY betamethasone dipropionate 0.05% 1 appl topical DAILY carvedilol 37.5 mg PO BID [Chair Glider As directed Urgent request US medical supply RE: Remi Flores Phone number: [phone]] clonidine HCl 2 tabs PO BEDTIME diphenhydramine HCl (Benadryl) 25 mg PO DAILY epinephrine 0.3 mg (0.3 mL) IM Q20M PRN ezetimibe (Zetia) 10 mg PO DAILY ferrous sulfate 325 mg PO DAILY fluticasone propion-salmeterol 250-50 mcg/dose (Wixela Inhub) 1 inh inhalation BID folic acid 1 mg PO DAILY furosemide 20 mg PO MOWEFR@0900 gabapentin 100 mg PO TID lorazepam 0.5 mg PO BEDTIME losartan 25 mg PO DAILY pantoprazole 40 mg PO DAILY [Raised toilet seat As directed] sertraline 50 mg PO DAILY spironolactone 25 mg PO DAILY trazodone 50 mg PO BEDTIME HPI HPI Primary Osteoarthritis Left Ankle and Foot: Details: 74-year-old female who presents to the office for evaluation of pain in the left ankle and low back. She reports an incident back on August 09, 2022, where she was returning a cart at the [employer], the cart went up in the air and came down on the left ankle and top of her. She underwent an ORIF of her trimalleolar ankle fracture. This was complicated by a wound infection and subsequently several runs of cellulitis that have been treated with antibiotics. Since then she has had worsening psoriasis around her left ankle which is associated with weeping lesions as well as constant pain. She underwent duplex ultrasound studies that were negative for reflux. Pain in the ankle is described as 8 to 9/10 in intensity. It is a burning stabbing sensation. She also has had worsening pitting edema in bilateral lower extremities. She relates having chronic kidney disease stage 3. She did x-rays of the lower back, which showed her having arthritis. he gets chronic spasms in the back and cannot move her foot forward or backward, until the spasm resolves. She is not able to sleep at night because of the chronic pain associated with burning sensation down the legs. She has not had an MRI of her lower back. Pain in the lower back is 7/10 in intensity and an aching stabbing sensation. She is unable to sleep normally do her daily activities. 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 Pain is better in the morning and gets worse throughout the course of the day. She is mobile but requires the assistance of a walker. It is worse with weight-bearing. She has previously performed physical therapy for ankle pain without much benefit. [facility] Medical History Diverticulosis GERD (gastroesophageal reflux disease) Occult fracture Acute CHF Hepatic steatosis COPD (chronic obstructive pulmonary disease) Uncontrolled hypertension HTN (hypertension) (HFpEF) heart failure with preserved ejection fraction Other and unspecified hyperlipidemia Essential hypertension Inguinal hernia Sliding hiatal hernia COPD (chronic obstructive pulmonary disease) Asthma Gout Arthritis Hypercholesteremia Chronic kidney disease (CKD) stage G3a/A1, moderately decreased glomerular filtration rate (GFR) between 45-59 mL/min/1.73 square meter and albuminuria creatinine ratio less than 30 mg/g Wound cellulitis Surgical History Hx of tonsillectomy Hx of rotator cuff surgery History of total left knee replacement Family History Father CHF (congestive heart failure) Mother CHF (congestive heart failure) Social History Household Members: Family Household Members Other:: mother Housing: House Do you presently have visiting nurse or other home services: No Alcohol intake: current Alcohol intake frequency: does not drink Alcohol type: wine Comment: pt rings appropriately Patient Tobacco Use Status: Former Tobacco user Second Hand Smoke Exposure: No Advance Directives Date on File: 12/04/20 service: No Current occupational status: employed 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 Alert and oriented. Mood and affect appropriate. Follows and participates in conversation appropriately. Respiratory effort is unlabored. Able to transition from sit to stand unassisted. There is pitting edema up to the shins. Results Reviewed Results Reviewed: 04/25/23: XR ANKLE, LEFT FINDINGS/IMPRESSION: There has been no significant radiographic change compared with February 27, 2023. The patient is status post ORIF, with metallic hardware projecting over the lateral lateral aspect of the fibula as well as medial aspect of the distal tibial diaphysis. No evidence of hardware fracture or loosening. The bony fractures appear healed, with associated fracture deformity. There may be widening of the tibiotalar articulation medially, unchanged. Dystrophic calcification is seen in this region, unchanged. There may be mild narrowing of the tibiotalar joint as well, unchanged. Plantar calcaneal spur. Assessment & Plan Assessment & Plan (1) Lumbar spondylosis: Code(s): M47.816 - Spondylosis without myelopathy or radiculopathy, lumbar region Category: Medical (2) Other intervertebral disc degeneration, lumbosacral region: Code(s): M51.37 - Other intervertebral disc degeneration, lumbosacral region Category: Medical (3) Status post ORIF of fracture of ankle: Code(s): Z98.890 - Other specified postprocedural states; Z87.81 - Personal history of (healed) traumatic fracture Category: Surgical Plan [age] year old female with history of trimalleolar ankle fracture status post ORIF with subsequent complicated history of recurrent wound infections and worsening psoriasis around her left ankle. It is difficult to say for symptoms are secondary to an immunologic response with subsequent pain or development of CRPS. She does have vasomotor changes. Ordinarily I would prefer a trial of temporary nerve stimulation therapy for postsurgical ankle pain but given her history of recurrent superficial infections in the past as well as more recently following her surgery, I am hesitant to place a temporary nerve stimulator lead through her skin. She has never been worked up for immune deficiencies, CGD in setting of recurrent serious skin infections following seemingly minor trauma. To confirm whether there is a component of sympathetic involvement, I offered her a left lumbar sympathetic block as a 1st diagnostic step. If it is positive, we can consider dorsal column or DRG stimulation. Of course this would be dependent on her spine condition and whether there is room to place such leads. A referral was provided to physical therapy for lower back pain. The patient will receive a call to schedule an appointment. Scribed for Dr. Pollard by Miladis Chavez, biomedical equipment support specialist, on 02/04/2024. I, Dr. Pollard, have personally reviewed and agree with the information entered by the scribe. Orders: Orders 2 PT Evaluation and Treatment Today M47.816 - Spondylosis without myelopathy or radiculopathy, lumbar region, M51.37 - Other intervertebral disc degeneration, lumbosacral region, Z87.81 - Personal history of (healed) traumatic fracture, Z98.890 - Other specified postprocedural states Coding Level of Care Code New Pt Level 4 (68274) Diagnoses Lumbar spondylosis M47.816 Other intervertebral disc degeneration, lumbosacral region M51.37 Status post ORIF of fracture of ankle Z98.890; Z87.81
[2024-02-04 11:01] VITALS: BP 114/54; PULSE 76; RESP 14; O2SAT 99; BMI 38.4
== END 2024-02-04 11:40 | disposition home or self-care (01) ==
PROVIDERS: PCP Nurse Practitioner Family; Visit Provider Internal Medicine
DX: M47.816 Spondylosis without myelopathy or radiculopathy, lumbar region (principal); M51.37 Other intervertebral disc degeneration, lumbosacral region; Z98.890 Other specified postprocedural states; Z87.81 Personal history of (healed) traumatic fracture
CPT/HCPCS: 99204

== ENCOUNTER → 2024-02-04 10:54 | Outpatient (BNVA) | payer BC, SELFPAY | PROVIDERS: PCP Nurse Practitioner Family; Visit Provider Internal Medicine ==

== ENCOUNTER 2024-03-04 08:47 | Inpatient (IN) | payer BC, SELFPAY ==
[2024-03-04] VITALS (12 sets, daily range): BP systolic 100–142; BP diastolic 48–74; PULSE 61–95; RESP 12–20; TEMP 36.6–37.3; O2SAT 97–100; BMI 37.2
--- NOTE | ~2024-03-04 | US_ITS ---
EXAMINATION: US VENOUS ULTRASOUND WITH DOPPLER LOWER EXTREMITY, LEFT CLINICAL INFORMATION: Pain, swelling. COMPARISON: Status post 02/06/2023 and 03/24/2023 TECHNIQUE: Ultrasound of the deep veins is performed from the hip to the calf with compression sonography and color and pulse Doppler assessment. Spectral analysis with color-flow imaging is performed. FINDINGS: The common femoral vein is compressible and exhibits a normal phasic waveform; this suggests that the iliac veins are widely patent above. Within the proximal thigh, the visualized profunda femoris vein is normal. The examined greater saphenous vein and saphenofemoral junction are normal. Superficial femoral vein is patent in the proximal, mid and distal thigh. Popliteal vein is normal to the level of the trifurcation. No evidence of López's cyst. There is edema of subcutaneous tissues of the calf. Unable to visualize deep calf veins for diagnostic assessment. Chronic prominence of inguinal lymph nodes. A large inguinal lymph node is 1.6 cm in short axis and 3.3 cm in long axis dimension. US/US venous duplex LE IMPRESSION: * No evidence of deep vein thrombosis in the left lower extremity from the level of the common femoral vein to the popliteal vein. * The subcutaneous tissue edema of the calf limits evaluation. Although no venous thrombosis is detected, the deep calf veins are difficult to visualize and a repeat Doppler ultrasound may be considered in 5-7 days if there is any ongoing clinical suspicion. * Again noted is lymphadenopathy in the inguinal region.
--- NOTE | ~2024-03-04 | XR_ITS ---
EXAMINATION: XR ANKLE, LEFT CLINICAL INFORMATION: Fall, pain COMPARISON: 04/25/2023 TECHNIQUE: AP, lateral, and mortise views of the left ankle. FINDINGS: There is soft tissue edema of the visualized lower leg, ankle and foot. Intact lateral fixation plate and screw fixation of the distal fibula. The old fibular fracture is healed and there is hypertrophic callus formation around the fracture. There appear to be a few old avulsion fragments at the tip of the medial malleolus and chronic widening of the medial tibiotalar joint space indicative of prior deltoid injury. There is mild narrowing of the tibiotalar joint space superolaterally. The prior posterior malleolar fracture has healed. There has been tight rope fixation of the tibiofibular syndesmosis with endobuttons in place. An old small thin calcific density projects posterior to the talar head and this could be sequela of remote avulsion injury. No acute fractures are seen. There are calcaneal enthesophytes at sites of attachment of the plantar aponeurosis and Achilles tendon. Mild osteoarthritis of the great toe metatarsophalangeal joint. XR/XR ankle LT min 3V IMPRESSION: * Nonspecific soft tissue edema of the leg, ankle and foot. * There are old healed fractures of the fibula and posterior malleolus, and avulsion fragments at the tip of the medial malleolus. There is chronic abnormal widening of the medial tibiotalar joint space indicative of deltoid ligamentous injury. * No evidence of loosening of the fixation hardware. * Mild osteoarthrosis of the ankle. * No acute fractures are seen.
--- NOTE | ~2024-03-04 | XR_ITS ---
EXAMINATION: XR KNEE, LEFT CLINICAL INFORMATION: History of pain, fall COMPARISON: 05/08/2020 and 07/03/2022 TECHNIQUE: Four views of the left knee. FINDINGS: Alignment is normal patellofemoral and tibiofemoral compartments, status post total knee arthroplasty. No fracture or osteolysis around the hardware. No bone erosions or periostitis. A few old foci of heterotopic ossification are seen along the medial aspect of the distal thigh. There is nonspecific soft tissue edema of the visualized lower thigh, knee and leg. No soft tissue gas. No overt knee joint effusion. XR/XR knee LT 3V IMPRESSION: * No acute osseous injury at the left knee. * No evidence of loosening of components of the total knee arthroplasty. * Nonspecific diffuse soft tissue edema.
--- NOTE | ~2024-03-04 | CT_ITS ---
EXAMINATION: CT EXTREMITY WITHOUT CONTRAST, LEFT LOWER CLINICAL INFORMATION: Cellulitis with fluctuance COMPARISON: Radiographs 03/04/2021 TECHNIQUE: A noncontrast CT of the left lower leg is performed with sagittal and coronal reformats This CT examination was performed using dose optimization techniques as appropriate, variously including the following: *Automated exposure control *Adjustment of mA and/or kV according to patient size (this includes techniques or standardized protocols for targeted exams where dose is matched to indication/reason for exam; i.e. extremities or head) *Use of iterative reconstruction technique DLP: 429 mGy-cm FINDINGS: Diffuse subcutaneous edema. No focal fluid collection to indicate an abscess. Cannot exclude cellulitis. No soft tissue gas. The distal fibular fracture appears completely healed and the hardware intact. Is some bridging bone between the fibula and tibia. A prior syndesmotic screw has been removed. Tibiotalar osteoarthritis with lateral joint space narrowing. There is widening of the medial joint space with ossified bodies in the medial gutter. No acute osseous abnormality. Prominent heel spur. Mild to moderate midfoot osteoarthritis. The total knee arthroplasty components are in the usual position and alignment without evidence of loosening or fracture. CT/CT lower leg LT wo IV con IMPRESSION: Diffuse subcutaneous edema with no focal fluid collection to indicate an abscess. Cannot exclude cellulitis. No soft tissue gas.
--- NOTE | 2024-03-04 10:05 | ECG_ITS ---
Test Reason : syncope Blood Pressure : / mmHG Vent. Rate : 063 BPM Atrial Rate : 063 BPM P-R Int : 144 ms QRS Dur : 108 ms QT Int : 472 ms P-R-T Axes : 055 006 014 degrees QTc Int : 483 ms Normal sinus rhythm Minimal voltage criteria for LVH, may be normal variant ( [place] product ) Nonspecific ST and T wave abnormality Prolonged QT Abnormal ECG When compared with ECG of 16-AUG-2022 11:15, No significant change was found Referred By: Kimberli Walker Electronically Signed By:Terell Almaraz
--- NOTE | 2024-03-04 10:05 | ED.GENADULT ---
HPI - General Adult General Chief complaint: General Medical Stated complaint: LEG PAIN,DIARRHEA,WEAK X4 DAYS PER EMS Time Seen by Provider: 03/04/24 09:41 Source: patient, EMS and old records reviewed Mode of arrival: EMS Limitations: no limitations History of Present Illness ED Provider: SELENA CASON narrative: 74 yo female with PMH of HTN, CHF EF 56%, anxiety, 2022 s/p L trimalloelar fx complicated by infection and treated in past with PICC line and IV vancomycin/wound vac. She comes in today with one week of chills, then for the past few days noted L left rash and blisters forming Friday. She noted she has had n/v and diarrhea this AM as well. She tried to get up this AM and was very weak and checked her BP it was 80/50s. She is worried she is infected again. MD complaint: leg infection Onset (ago): day(s) (few) Location: left and lower extremity Radiation: non-radiation Severity: moderate Quality: aching Pain Consistency: constant Relieving factors: none Exacerbating factors: movement Associated symptoms: fever/chills, loss of appetite, malaise, nausea/vomiting and rash Treatments prior to arrival: none Related Data Home Medications ?Medication ?Instructions ?Recorded ?Confirmed pantoprazole 40 mg tablet,delayed 40 mg PO DAILY 11/17/20 02/04/24 release clonidine HCl 0.1 mg tablet 2 tab PO BEDTIME 05/08/22 02/04/24 albuterol sulfate 90 mcg/actuation 2 puff inhalation Q6H PRN 08/09/22 02/04/24 aerosol inhaler Respiratory Distress diphenhydramine HCl 25 mg capsule 25 mg PO DAILY 08/09/22 02/04/24 (Benadryl) furosemide 20 mg tablet 20 mg PO MOWEFR@0900 08/09/22 02/04/24 sertraline 50 mg tablet 50 mg PO DAILY 12/26/22 02/04/24 spironolactone 25 mg tablet 25 mg PO DAILY 12/26/22 02/04/24 gabapentin 100 mg capsule 100 mg PO TID 08/29/23 02/04/24 carvedilol 25 mg tablet 37.5 mg PO BID 02/04/24 Previous Rx's ?Medication ?Instructions ?Recorded epinephrine 0.3 mg/0.3 mL 0.3 mg (0.3 mL) IM Q20M PRN 02/23/21 injection, auto-injector anaphylaxis #2 ea fluticasone 250 mcg-salmeterol 50 1 inh inhalation BID #60 ea 02/23/21 mcg/dose blistr powdr for inhalation ([place] Inhub) ferrous sulfate 325 mg (65 mg 325 mg PO DAILY #30 tabs 11/06/21 iron) tablet folic acid 1 mg tablet 1 mg PO DAILY #30 tabs 11/06/21 3 in 1 commode #1 ea 09/04/22 Raised toilet seat #1 ea 09/04/22 acetaminophen 325 mg tablet 650 mg (2 x 325 mg) PO Q4H PRN 09/06/22 Pain, Severe (Pain Scale 7-10) 30 days #240 tabs lorazepam 0.5 mg tablet 0.5 mg PO BEDTIME #30 tabs 09/06/22 trazodone 50 mg tablet 50 mg PO BEDTIME #30 tabs 09/06/22 Chair Glider #1 ea 10/15/22 betamethasone dipropionate 0.05 % 1 appl topical DAILY #60 mL 06/24/23 lotion atorvastatin 80 mg tablet (Lipitor) 80 mg PO DAILY #90 tabs 08/29/23 ezetimibe 10 mg tablet (Zetia) 10 mg PO DAILY #90 tabs 08/29/23 losartan 25 mg tablet 25 mg PO DAILY #90 tabs 01/28/24 Allergies Allergy/AdvReac Type Severity Reaction Status Date / Time shrimp Allergy Severe Anaphylaxis Verified 03/04/24 09:10 Penicillins Allergy Unknown UNKNOWN Verified 03/04/24 09:10 levofloxacin [From Levaquin] Allergy Hypertensio Verified 03/04/24 09:10 n paroxetine [From Paxil] Allergy Unknown Verified 03/04/24 09:10 prochlorperazine Allergy Unknown Verified 03/04/24 09:10 [From Compazine] tripoly phosphate Allergy Anaphylaxis Uncoded 03/04/24 09:10 Review of Systems Review of Systems: Constitutional : No Weight loss, No Fever, pos Chills ENT/Mouth : No sore throat, No Rhinorrhea Eyes: No Swelling, No Redness Cardiovascular : No Chest Pain, No SOB, NoEdema Respiratory : No Cough, No Sputum, No Wheezing Gastrointestinal : Positive Nausea, Positive Vomiting, positive Diarrhea, no abdominal Pain, No Hematochezia, No Melena Genitourinary : No Dysuria, No Urinary Frequency, No Hematuria, No Urgency Musculoskeletal : No joint pain, No Myalgias, No Joint Swelling Skin :pos Skin Lesions, pos rash Neuro : pos Weakness, No Numbness, No Dizziness, No Headache Psych : No Anxiety/Panic, No Depression Heme/Lymph: No Bruising, No Lymphadenopathy Endocrine : No Polyuria, No Polydipsia All other systems reviewed and are negative. [facility] Past Medical History Attestation statement: The following information was validated with the patient. Source: old records reviewed Medical History Diverticulosis GERD (gastroesophageal reflux disease) Occult fracture Acute CHF Hepatic steatosis COPD (chronic obstructive pulmonary disease) Uncontrolled hypertension HTN (hypertension) (HFpEF) heart failure with preserved ejection fraction Other and unspecified hyperlipidemia Essential hypertension Inguinal hernia Sliding hiatal hernia COPD (chronic obstructive pulmonary disease) Asthma Gout Arthritis Hypercholesteremia Chronic kidney disease (CKD) stage G3a/A1, moderately decreased glomerular filtration rate (GFR) between 45-59 mL/min/1.73 square meter and albuminuria creatinine ratio less than 30 mg/g Wound cellulitis Surgical History Hx of tonsillectomy Hx of rotator cuff surgery History of total left knee replacement Family History Family History Father CHF (congestive heart failure) Mother CHF (congestive heart failure) Social History Social History Household Members: Family Household Members Other:: mother Housing: House Do you presently have visiting nurse or other home services: No Alcohol intake: current Alcohol intake frequency: does not drink Alcohol type: wine Comment: pt rings appropriately Patient Tobacco Use Status: Former Tobacco user Smoked in Last 30 Days: No Second Hand Smoke Exposure: No Use of substances other than those prescribed or required for medical reasons: No Advance Directives: Yes Advance Directives on File: Yes Advance Directives Date on File: 12/04/20 Do you have a plan to hurt others: No Plan service: No Current occupational status: employed 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 Oriented X3. No acute distress. Eyes: Pupils equal, round and reactive to light. ENT: Pharynx normal. Neck: Normal inspection. Neck supple. CVS: Normal heart rate and rhythm. Pulses normal. Respiratory: No respiratory distress. Breath sounds normal. Abdomen: Soft and nontender. Skin: Skin warm and dry. Normal skin color. Normal skin turgor. Extremities: L left 1+ pitting lower extremity edema. redness, warmth and clear fluid filled blisters on medial and lateral aspect of calf no abscess or crepitus felt compartments are soft and compressible. see pics below Neuro: Oriented X 3. No motor deficit. No sensory deficit. Medications Administered Generic Name Dose Route Start Last Admin Trade Name Freq PRN Reason Stop Dose Admin Magnesium Sulfate 2 gm in 50 mls @ 25 mls/hr 03/04/24 11:06 03/04/24 12:09 Magnesium Sulfate/H2o IV 03/04/24 13:05 25 mls/hr ONCE ONE Administration Potassium Chloride 10 meq in 100 mls @ 100 mls/hr 03/04/24 11:15 03/04/24 12:52 Potassium Chloride/H20 IV 03/04/24 15:14 100 mls/hr Q1H JOSÉ Administration Discontinued Medications Generic Name Dose Route Start Last Admin Trade Name Freq PRN Reason Stop Dose Admin Sodium Chloride 1,000 mls @ 999 mls/hr 03/04/24 10:05 03/04/24 11:49 Ns IV 03/04/24 11:05 Infused .Q1H1M ONE Infusion Cefepime HCl 1 gm/ Sodium 50 mls @ 100 mls/hr 03/04/24 10:05 03/04/24 11:49 Chloride IV 03/04/24 10:34 Infused ONCE ONE Infusion Vancomycin HCl 2,000 mg in 500 mls @ 250 mls/hr 03/04/24 10:05 03/04/24 13:02 Vancomycin/Ns IV 03/04/24 12:04 Infused ONCE ONE Infusion Oxycodone HCl 10 mg 03/04/24 11:00 03/04/24 11:05 Oxycodone Hcl Immed Release 5 Mg Tablet PO 03/04/24 11:01 10 mg ONCE ONE Administration Medical Decision Making Medical Decision Making MDM Narrative: 74 yo female with PMH of HTN, CHF EF 56%, anxiety, 2022 s/p L trimalloelar fx complicated by infection and treated in past with PICC line and IV vancomycin/wound vac here with c/o recurrent L leg cellulitis at this time will need labs, xrays of L ankle and knee hardware did fall on leg recently no head or neck injury LOC reported, L DVT study given swelling - no signs of compartment syndrome, empiric cefepime and vancomycin. IVF - planned admit. Differential Diagnosis Differential Diagnoses: The differential diagnosis associated with the presentation includes cellulitis, DVT Admission/Observation Consideration of admission/observation: Escalation of care including admission/observation considered admit given derangements of labs, MALLIKA and leg infection Consult Healthcare Provider Management of the patient was discussed with: Hospitalist (will admit) Lab Data [facility] Lab Attestation statement: I reviewed the patient's lab results. 03/04/24 10:32 03/04/24 10:32 Labs: Lab Results 03/04/24 Range/Units 10:32 WBC 21.0 H (4.8-10.8) X10*3/uL RBC 2.76 L D (4.20-5.50) X10*6/uL Hgb 7.4 L D (12.0-16.0) g/dl Hct 22.6 L D (37.0-47.0) % MCV 81.9 (80.0-98.0) fL MCH 26.8 L (27.0-33.0) pg MCHC 32.7 (31.0-35.0) g/dl RDW 18.0 H (11.0-16.0) % Plt Count 326 (160-400) X10*3/uL MPV 10.7 (9.4-12.3) fL Immature Gran % (Auto) 3.7 H (0.0-0.4) % Neut % (Auto) 82.5 H (45-73) % Lymph % (Auto) 5.7 L (20-40) % Wallace % (Auto) 7.8 (2-11) % Eos % (Auto) 0.1 (0-4) % Baso % (Auto) 0.2 (0-2) % Lymph # (Auto) 1.2 (1.2-4.9) X10*3/uL Wallace # (Auto) 1.6 H (0.1-1.2) X10*3/uL Eos # (Auto) 0.0 (0.0-0.4) X10*3/uL Baso # (Auto) 0.0 (0.0-0.2) X10*3/uL Abs Immat Gran (auto) 0.77 H (0.00-0.03) X10*3/uL Absolute Neuts (auto) 17.4 H (2.0-8.3) x10*3/uL Absolute Nucleated RBC 0.000 (0.0-0.012) X10*3/uL Nucleated RBC % (auto) 0.0 (0.0-0.2) /100WBC Smear Tech's Comments VERIFIED Sodium 132 L (135-145) mmol/L Potassium 2.7 L* (3.3-5.1) mmol/L Chloride 94 L (96-108) mmol/L Carbon Dioxide 22 (22-29) mmol/L Anion Gap 19 (12-20) BUN 40 H (9-16) mg/dL Creatinine 2.73 H (0.5-1.4) mg/dL Estim Creat Clear Calc 21.2 Estimated GFR 17 Random Glucose 114 (60-115) mg/dL Lactic Acid 1.6 (0.5-2.0) mmol/L Calcium 8.2 L D (8.4-10.2) mg/dL Magnesium 1.2 L* (1.6-2.6) mg/dL Total Bilirubin 0.3 (0.0-1.0) mg/dL Direct Bilirubin 0.1 (0.0-0.5) mg/dL AST 21 (5-31) U/L ALT 9 (0-31) U/L Alkaline Phosphatase 91 (39-117) U/L B-Natriuretic Peptide 320 H (<100) pg/mL Total Protein 6.9 (6.5-8.0) g/dL Albumin 3.2 L (3.5-5.0) g/dL Lipase 70 (8-78) U/L Independent Interpretation I performed an independent interpretation of an: EKG, Plain X-Ray (no fracture) and Ultrasound (no DVT) Interpretation: Rate: 63 Rhythm: NSR [place]: normal Normal P waves. Normal SAMREEN. Normal QRS complex. ST T wave : no RAGHAVENDRA, nonspecific ST T wave changes lateral leads, inverted t wave V1 qTC: 483 prior studies: no RAGHAVENDRA The study has been interpreted contemporaneously by me. . Radiology Impression Discussion of test interpretation with radiology: I have reviewed the radiologist's reading. Independent Historian Clinical information obtained from an independent historian. History obtained from or confirmed by: EMS External Record Review External record reviewed: Inpatient record Critical Care Time Critical Care Time Critical Care Time: Yes Total Critical Care Time: 60 Attestation: IV magnesium and IV potassium, review of records, sepsis protocol, admission I attest to this time spent taking care of the patient Discharge Plan Discharge Clinical Impression: Cellulitis of left leg, MALLIKA (acute kidney injury), Anemia, Hypomagnesemia, Acute hypokalemia Patient Disposition: Admitted As Inpatient Prescriptions: No Action (DME) 3 in 1 commode See Rx Instructions .ROUTE .MEDSUPPLY Qty: 1 0RF Rx Instructions: Displaced trimalleolar fracture of left lower leg, initial encounter for closed fracture (DME) Raised toilet seat See Rx Instructions .ROUTE .MEDSUPPLY Qty: 1 0RF Rx Instructions: As directed (DME) Chair Glider See Rx Instructions .ROUTE .MEDSUPPLY Qty: 1 0RF Rx Instructions: As directed Urgent request medical supply RE: Remi Flores Phone number: [phone] losartan 25 mg tablet 25 mg PO DAILY Qty: 90 3RF folic acid 1 mg tablet 1 mg PO DAILY Qty: 30 0RF ferrous sulfate 325 mg (65 mg iron) tablet 325 mg PO DAILY Qty: 30 0RF acetaminophen 325 mg Tablet 650 mg PO Q4H PRN (Reason: Pain, Severe (Pain Scale 7-10)) 30 Days Qty: 240 0RF lorazepam 0.5 mg Tablet 0.5 mg PO BEDTIME Qty: 30 0RF trazodone 50 mg tablet 50 mg PO BEDTIME Qty: 30 0RF spironolactone 25 mg tablet 25 mg PO DAILY clonidine HCl 0.1 mg tablet 2 tab PO BEDTIME furosemide 20 mg Tablet 20 mg PO MOWEFR@0900 diphenhydramine HCl [Benadryl] 25 mg Capsule 25 mg PO DAILY albuterol sulfate 90 mcg/actuation Hfa Aerosol Inhaler 2 puff INHALATION Q6H PRN (Reason: Respiratory Distress) fluticasone propion-salmeterol [[place]ixela Inhub] 250-50 mcg/dose blister with device 1 inh inhalation BID Qty: 60 1RF epinephrine 0.3 mg/0.3 mL auto-injector 0.3 mg IM Q20M PRN (Reason: anaphylaxis) Qty: 2 0RF Rx Instructions: for 2 doses pantoprazole 40 mg tablet,delayed release (DR/EC) 40 mg PO DAILY betamethasone dipropionate 0.05 % lotion 1 appl topical DAILY Qty: 60 0RF sertraline 50 mg tablet 50 mg PO DAILY gabapentin 100 mg capsule 100 mg PO TID atorvastatin [Lipitor] 80 mg tablet 80 mg PO DAILY Qty: 90 3RF ezetimibe [Zetia] 10 mg tablet 10 mg PO DAILY Qty: 90 3RF carvedilol 25 mg tablet 37.5 mg PO BID Print Language: [place]
[2024-03-04] MEDS: 0.9 % Sodium Chloride 1,000 ML 999 ML IV (10:44)
[2024-03-04 10:47] LABS: Basophils Percent Auto 0.2 % (0-2); Eosinophils Percent Auto 0.1 % (0-4); Hematocrit 22.6 % (37.0-47.0); Hemoglobin 7.4 g/dl (12.0-16.0); Imm Gran Abs Auto 0.77 X10*3/uL (0.00-0.03); Imm Gran Pct Auto 3.7 % (0.0-0.4); Lymphocytes Absolute Auto 1.2 X10*3/uL (1.2-4.9); Lymphocytes Percent Auto 5.7 % (20-40); MANUAL DIFF FLAG SCAN; Mean Corpuscular HGB Conc 32.7 g/dl (31.0-35.0); Mean Corpuscular Hemoglobin 26.8 pg (27.0-33.0); Mean Corpuscular Volume 81.9 fL (80.0-98.0); Mean Platelet Volume 10.7 fL (9.4-12.3); Monocytes Absolute Auto 1.6 X10*3/uL (0.1-1.2); Monocytes Percent Auto 7.8 % (2-11); Neutrophils Absolute Auto 17.4 x10*3/uL (2.0-8.3); Neutrophils Percent Auto 82.5 % (45-73); Platelet Count 326 X10*3/uL (160-400); Red Blood Count 2.76 X10*6/uL (4.20-5.50); SCAN SMEAR FLAG 1
[2024-03-04] MEDS: cefEPime HCl 1 GM in 0.9 % Sodium Chloride 50 ML IV (10:54)
[2024-03-04] MEDS: vancomycin/NS 2,000 MG/500 ML PLAST..BAG 250 MG IV (10:56)
[2024-03-04 10:57] LABS: Lactic Acid 1.6 mmol/L (0.5-2.0)
[2024-03-04 11:04] LABS: Alanine Aminotransferase 9 U/L (0-31); Albumin Level 3.2 g/dL (3.5-5.0); Alkaline Phosphatase 91 U/L (39-117); Anion Gap 19 (12-20); Aspartate Amino Transferase 21 U/L (5-31); Bilirubin Direct 0.1 mg/dL (0.0-0.5); Bilirubin Total 0.3 mg/dL (0.0-1.0); Blood Urea Nitrogen 40 mg/dL (9-16); Calcium 8.2 mg/dL (8.4-10.2); Carbon Dioxide 22 mmol/L (22-29); Chloride 94 mmol/L (96-108); Creatinine Clr Calc Pharmacy 21.2; Estimated Glomerular Filt Rate 17; Glucose Random 114 mg/dL (60-115); Lipase 70 U/L (8-78); Sodium 132 mmol/L (135-145); Total Protein 6.9 g/dL (6.5-8.0)
[2024-03-04] MEDS: oxyCODONE HCl Immed Release 5 MG TABLET 10 MG PO (11:05)
[2024-03-04 11:07] LABS: B Type Natriuretic Peptide 320 pg/mL (<100); Magnesium 1.2 mg/dL (1.6-2.6); Potassium 2.7 mmol/L (3.3-5.1)
[2024-03-04 11:33] LABS: SLIDE REVIEW VERIFIED
[2024-03-04] MEDS: Magnesium Sulfate/H2O 2 GM/50 ML PIGGYBACK IV (12:09)
[2024-03-04] MEDS: Potassium Chloride/H20 10 MEQ/100 ML PIGGYBACK 100 MEQ IV ×4 (12:52→21:06)
--- NOTE | 2024-03-04 13:06 | PM.IMHP ---
History of Present Illness Date of Service: 03/04/24 Chief Complaint: Fever and chills This is a 74-year-old female with pertinent history of congestive heart failure with preserved ejection fraction, CKD stage 3, hypertension, mood disorder, COPD not on home oxygen presents to the emergency department for evaluation of fevers and chills. Patient states that said been ongoing for a week when she 1st noticed swelling, warmth and redness of her left lower extremity. Patient states she took [id number] Tylenol but her symptoms continued. Symptoms have progressed in the last 2-3 days. She also developed nausea, nonbloody emesis and nonbloody diarrhea. Has had poor appetite and generalized fatigability. No chest discomfort, shortness of breath, abdominal pain, changes in urinary habits. In the emergency department, patient was found to be septic and initiated on empiric IV antibiotics. Venous Doppler negative for DVT. Creatinine found to be 2.7 Review of Systems Constitutional: Constitutional: Reports chills, Reports fever(s), Reports malaise, Reports poor appetite and Reports weakness ENT: Reports system reviewed and no additional complaints, except as documented Cardiovascular: Cardiovascular: Reports no additional cardiovascular complaints Respiratory: Respiratory: Reports no additional respiratory complaints Neurologic: Reports weakness [facility] Medical History Diverticulosis GERD (gastroesophageal reflux disease) Occult fracture Acute CHF Hepatic steatosis COPD (chronic obstructive pulmonary disease) Uncontrolled hypertension HTN (hypertension) (HFpEF) heart failure with preserved ejection fraction Other and unspecified hyperlipidemia Essential hypertension Inguinal hernia Sliding hiatal hernia COPD (chronic obstructive pulmonary disease) Asthma Gout Arthritis Hypercholesteremia Chronic kidney disease (CKD) stage G3a/A1, moderately decreased glomerular filtration rate (GFR) between 45-59 mL/min/1.73 square meter and albuminuria creatinine ratio less than 30 mg/g Wound cellulitis Family History Father CHF (congestive heart failure) Mother CHF (congestive heart failure) Surgical History Hx of tonsillectomy Hx of rotator cuff surgery History of total left knee replacement Social History Household Members: Family Household Members Other:: mother Housing: House Do you presently have visiting nurse or other home services: No Alcohol intake: current Alcohol intake frequency: does not drink Alcohol type: wine Comment: pt rings appropriately Patient Tobacco Use Status: Former Tobacco user Smoked in Last 30 Days: No Second Hand Smoke Exposure: No Use of substances other than those prescribed or required for medical reasons: No Advance Directives: Yes Advance Directives on File: Yes Advance Directives Date on File: 12/04/20 Do you have a plan to hurt others: No Plan service: No Current occupational status: employed 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, 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 Meds Allergies Allergy/AdvReac Type Severity Reaction Status Date / Time shrimp Allergy Severe Anaphylaxis Verified 03/04/24 09:10 Penicillins Allergy Unknown UNKNOWN Verified 03/04/24 09:10 levofloxacin [From Levaquin] Allergy Hypertensio Verified 03/04/24 09:10 n paroxetine [From Paxil] Allergy Unknown Verified 03/04/24 09:10 prochlorperazine Allergy Unknown Verified 03/04/24 09:10 [From Compazine] tripoly phosphate Allergy Anaphylaxis Uncoded 03/04/24 09:10 Active Medications: Current Medications Potassium Chloride (Potassium Chloride/H20) 10 meq in 100 mls @ 100 mls/hr IV Q1H [facility] Stop: 03/04/24 15:14 Last Admin: 03/04/24 12:52 Dose: 100 mls/hr Sodium Chloride (Ns) 1,000 mls @ 80 mls/hr IVCONT .[id number] [facility] Home Medications ?Medication ?Instructions ?Recorded ?Confirmed ?Last Taken ?Type pantoprazole 40 mg tablet,delayed 40 mg PO DAILY 11/17/20 02/04/24 08/09/22 History release clonidine HCl 0.1 mg tablet 2 tab PO BEDTIME 05/08/22 02/04/24 08/08/22 History albuterol sulfate 90 mcg/actuation 2 puff inhalation Q6H PRN 08/09/22 02/04/24 Unknown History aerosol inhaler Respiratory Distress diphenhydramine HCl 25 mg capsule 25 mg PO DAILY 08/09/22 02/04/24 08/09/22 History (Benadryl) furosemide 20 mg tablet 20 mg PO MOWEFR@0900 08/09/22 02/04/24 08/09/22 History sertraline 50 mg tablet 50 mg PO DAILY 12/26/22 02/04/24 Unknown History spironolactone 25 mg tablet 25 mg PO DAILY 12/26/22 02/04/24 Unknown History gabapentin 100 mg capsule 100 mg PO TID 08/29/23 02/04/24 Unknown History carvedilol 25 mg tablet 37.5 mg PO BID 02/04/24 Unknown History Physical Exam Vital Signs and Narrative: Vital Signs: Last Vital Signs Temp 97.8 F 03/04/24 12:00 Pulse 64 03/04/24 12:27 Resp 18 03/04/24 12:27 BP 130/51 L 03/04/24 12:27 Pulse Ox 98 03/04/24 12:27 O2 Del Method Room Air 03/04/24 12:27 BMI result Body Mass Index 37.2 Middle-aged female lying in bed in no distress Neck supple, no JVD Regular rate and rhythm, S1-S2 heard Regular breath sounds bilaterally, no wheezing or crackles appreciated Abdomen soft nontender, no guarding, no rigidity Patient is awake, alert and oriented to self, place, time and person ; no focal motor deficit Psych: Normal mood Left lower extremity with swelling, warmth and redness as pictured below Skin: Other: Results Labs 03/04/24 10:32 03/04/24 10:32 Labs: Laboratory Results - last 24 hr 03/04/24 10:32 MCV 81.9 MCH 26.8 L MCHC 32.7 RDW 18.0 H Plt Count 326 MPV 10.7 Immature Gran % (Auto) 3.7 H Neut % (Auto) 82.5 H Lymph % (Auto) 5.7 L Sunflower % (Auto) 7.8 Eos % (Auto) 0.1 Baso % (Auto) 0.2 Lymph # (Auto) 1.2 Sunflower # (Auto) 1.6 H Eos # (Auto) 0.0 Baso # (Auto) 0.0 Abs Immat Gran (auto) 0.77 H Absolute Neuts (auto) 17.4 H Absolute Nucleated RBC 0.000 Nucleated RBC % (auto) 0.0 Smear Tech's Comments VERIFIED Anion Gap 19 Estim Creat Clear Calc 21.2 Estimated GFR 17 Random Glucose 114 Lactic Acid 1.6 Calcium 8.2 L D Magnesium 1.2 L* Total Bilirubin 0.3 Direct Bilirubin 0.1 AST 21 ALT 9 Alkaline Phosphatase 91 B-Natriuretic Peptide 320 H Total Protein 6.9 Albumin 3.2 L Lipase 70 Imaging Radiologist's Impressions: Impressions Venous Duplex 03/04/24 11:32 IMPRESSION: * No evidence of deep vein thrombosis in the left lower extremity from the level of the common femoral vein to the popliteal vein. * The subcutaneous tissue edema of the calf limits evaluation. Although no venous thrombosis is detected, the deep calf veins are difficult to visualize and a repeat Doppler ultrasound may be considered in 5-7 days if there is any ongoing clinical suspicion. * Again noted is lymphadenopathy in the inguinal region. Assessment and Plan (1) Cellulitis of left leg: Status: Acute (2) MALLIKA (acute kidney injury): Status: Acute Plan This is a 74-year-old female with pertinent history of congestive heart failure with preserved ejection fraction, CKD stage 3, hypertension, mood disorder, COPD not on home oxygen presents to the emergency department for evaluation of fevers and chills. #. Sepsis due to left leg cellulitis: Resuscitated with IV crystalloids. Initiating IV vancomycin. Lactic acid and blood culture obtained. Monitor for improvement. Knee and ankle x-ray pending #. Acute kidney injury stage II: Monitor creatinine urine output with crystalloid resuscitation. Avoid nephrotoxins #. Nausea/vomiting/diarrhea in the setting of sepsis. GI panel pending #. Hypokalemia and hypomagnesemia due to GI losses: Repleted #. Congestive heart failure with preserved ejection fraction: Hold Lasix in the setting of MALLIKA #. Hypertension: Hold spironolactone, losartan in the setting of MALLIKA #. Mood disorder: Continue home mood stabilizers #. Mixed hyperlipidemia: Continue statin and Zetia #. COPD: No exacerbation during admission. Continue home inhaler Med rec pending DVT prophylaxis: Lovenox Full code Admit as inpatient and will require two night minimum hospital stay for IV antibiotics (as above), which is not possible in a lesser acute setting. Quality Stroke Does the patient have a stroke diagnosis?: No VTE Prior VTE?: No VTE Risk Level:: Medical - moderate - high VTE Device Contraindication: Treatment Not Indicated VTE Drug Contraindication: N/A - Med Ordered
--- NOTE | 2024-03-04 13:26 | PHA.PROG ---
Admission Date/Time: March 04, 2024 13:05 Indication:Skin & Skin structure Weight in k.3 kg Adjusted body weight in Kg: [place] body weight in Kg: Obesity Dosing Indication % IBW: BMI 37.2 Serum Creatinine - Last 168 Hours 03/04/24 10:32 Creatinine 2.73 H Estimated CrCl and GFR - Last 168 Hours 03/04/24 10:32 Estim Creat Clear Calc 21.2 Estimated GFR 17 Vancomycin Loading Dose: 2000mg x1 Current Vancomycin Dosing Regimen: 500 mg Q24H Vancomycin Monitoring using AUC goal of 400 - 600 range with trough as surrogate marker: 500 Date and Time for next Vancomycin Level to be drawn: 03/06 @1999 Pharmacist Comments on Vancomycin Plan: pushed out second dose to 03/05 @2200 per poor renal function. To be monitored and adjusted based on SCr changes, using obese model, predicted trough 17.6. Vancomycin dosing will take advantage of [employer] as a clinical decision support tool that uses Bayesian modeling to calculate individual patient's pharmacokinetic parameters and forecast the patient's drug concentration time course with the target goal AUC 24 range of 400 - 600 mg/L/hr.
--- NOTE | 2024-03-04 14:22 | PHA.MEDREC ---
Pharmacy Consult ? Medication Reconciliation Pharmacy has completed the medication reconciliation. Confirmed medications with patient. She stated to me that her PCP retired and has not been able to fill her Lorazepam in months and shes been taking her moms medications. She also informed me that she is taking her Furosemide 20mg tabs one regime MO FR she takes one tablet on those days and on she takes 40mg (2tabs) those days.
[2024-03-04] MEDS: Enoxaparin Sodium 30 MG/0.3 ML SYRINGE SUBCUT (14:24)
[2024-03-04] MEDS: Gabapentin 100 MG CAPSULE PO ×2 (16:03→21:09)
[2024-03-04] MEDS: 0.9 % Sodium Chloride Flush 3 ML SYRINGE IVFLUSH (16:04)
[2024-03-04] MEDS: Potassium Chloride Packet 20 MEQ PACKET 40 MEQ PO (17:45)
[2024-03-04 18:50] LABS: Appearance Urine Cloudy; Color Urine Yellow; Glucose Urine UA Negative (Negative); Leukocyte Esterase Urine Negative (Negative); Nitrite Urine Negative (Negative); PH 5.5 (5.0-9.0); UMIC TRIGGER UACC YES; Urine Blood Negative (Negative); Urine Ketones Negative (Negative); Urine Protein 30 (1+) mg/dL (Neg-Trace)
[2024-03-04 19:17] LABS: Bacteria Urine None Seen (None Seen); RBC Urine 0-2 /HPF (0-2); WBC Urine 0-5 /HPF (0-5)
[2024-03-04] MEDS: oxyCODONE HCl Immed Release 5 MG TABLET PO (19:37)
[2024-03-04] MEDS: cloNIDine HCL 0.2 MG TABLET PO (21:10)
[2024-03-04] MEDS: LORazepam 0.5 MG TABLET PO (21:10)
[2024-03-04] MEDS: carvediloL 12.5 MG TABLET 37.5 MG PO (21:10)
[2024-03-04] MEDS: traZODone HCL 50 MG TABLET PO (21:10)
[2024-03-05] VITALS (8 sets, daily range): BP systolic 105–130; BP diastolic 48–62; PULSE 66–74; RESP 12–20; TEMP 36.4–37.4; O2SAT 96–98; BMI 38.3
[2024-03-05] MEDS: 0.9 % Sodium Chloride Flush 3 ML SYRINGE IVFLUSH ×4 (02:40→22:28)
[2024-03-05] MEDS: Omeprazole 20 MG CAPSULE.DR PO (05:06)
[2024-03-05 07:44] LABS: MANUAL DIFF FLAG NO
[2024-03-05 07:47] LABS: Basophils Absolute Auto 0.1 X10*3/uL (0.0-0.2); Basophils Percent Auto 0.4 % (0-2); Eosinophils Absolute Auto 0.1 X10*3/uL (0.0-0.4); Eosinophils Percent Auto 0.7 % (0-4); Imm Gran Abs Auto 0.27 X10*3/uL (0.00-0.03); Imm Gran Pct Auto 1.8 % (0.0-0.4); Lymphocytes Absolute Auto 1.8 X10*3/uL (1.2-4.9); Lymphocytes Percent Auto 11.9 % (20-40); Mean Corpuscular HGB Conc 31.7 g/dl (31.0-35.0); Mean Corpuscular Hemoglobin 26.3 pg (27.0-33.0); Mean Corpuscular Volume 83.1 fL (80.0-98.0); Mean Platelet Volume 10.6 fL (9.4-12.3); Monocytes Absolute Auto 1.3 X10*3/uL (0.1-1.2); Monocytes Percent Auto 8.5 % (2-11); Neutrophils Absolute Auto 11.3 x10*3/uL (2.0-8.3); Neutrophils Percent Auto 76.7 % (45-73); Platelet Count 354 X10*3/uL (160-400); Red Blood Count 2.43 X10*6/uL (4.20-5.50); Red Cell Distribution Width 18.3 % (11.0-16.0); White Blood Count 14.7 X10*3/uL (4.8-10.8)
[2024-03-05 07:57] LABS: Hematocrit 20.2 % (37.0-47.0); Hemoglobin 6.4 g/dl (12.0-16.0)
[2024-03-05 08:04] LABS: Anion Gap 13 (12-20); Blood Urea Nitrogen 34 mg/dL (9-16); Calcium 8.1 mg/dL (8.4-10.2); Carbon Dioxide 22 mmol/L (22-29); Chloride 100 mmol/L (96-108); Creatinine Clr Calc Pharmacy 36.3; Estimated Glomerular Filt Rate 31; Glucose Random 95 mg/dL (60-115); Magnesium 1.7 mg/dL (1.6-2.6); Potassium 3.5 mmol/L (3.3-5.1); Sodium 131 mmol/L (135-145)
[2024-03-05] MEDS: Atorvastatin Calcium 80 MG TABLET PO (09:19)
[2024-03-05] MEDS: Sertraline HCL 50 MG TABLET PO (09:19)
[2024-03-05] MEDS: Ferrous Sulfate 324 MG TABLET.DR PO (09:19)
[2024-03-05] MEDS: Gabapentin 100 MG CAPSULE PO ×3 (09:19→22:28)
[2024-03-05] MEDS: carvediloL 12.5 MG TABLET 37.5 MG PO ×2 (09:20→22:28)
[2024-03-05] MEDS: Cholecalciferol (Vitamin D3) 25 MCG TABLET PO (09:20)
[2024-03-05] MEDS: Ezetimibe 10 MG TABLET PO (09:20)
[2024-03-05] MEDS: diphenhydrAMINE HCL 25 MG CAPSULE PO (09:21)
--- NOTE | 2024-03-05 09:24 | P.PNIM_ITS ---
Subjective Subjective Date of Service: 03/05/24 Interval History: Acute nursing events overnight. Patient without black stools or blood in stools. Hemoglobin found to be 6.4 this a.m.. Leg erythema improving Constitutional Constitutional: Reports chills, Reports fever(s), Reports malaise, Reports poor appetite and Reports weakness ENT Ears, Nose, Mouth, and Throat: Reports system reviewed and no additional complaints, except as documented Cardiovascular Cardiovascular: Reports no additional cardiovascular complaints Respiratory Respiratory: Reports no additional respiratory complaints Neurologic Neurologic: Reports weakness Physical Exam 2 Vital Signs: Vital Signs: Last Vital Signs Temp 97.7 F 03/05/24 08:00 Pulse 72 03/05/24 08:00 Resp 12 03/05/24 08:00 BP 105/49 L 03/05/24 08:00 Pulse Ox 97 03/05/24 08:00 O2 Del Method Room Air 03/05/24 08:00 BMI result Body Mass Index 38.3 Middle-aged female lying in bed in no distress Neck supple, no JVD Regular rate and rhythm, S1-S2 heard Regular breath sounds bilaterally, no wheezing or crackles appreciated Abdomen soft nontender, no guarding, no rigidity Patient is awake, alert and oriented to self, place, time and person ; no focal motor deficit Psych: Normal mood Left lower extremity with swelling, warmth and redness as pictured below Skin: Other: Objective Data Active Medications Acetaminophen (Acetaminophen 325 Mg Tablet) 650 mg PO Q6H PRN PRN Reason: Pain, Mild (Pain Scale 1-3), fever or headache Atorvastatin Calcium (Atorvastatin Calcium 80 Mg Tablet) 80 mg PO DAILY [facility] Last Admin: 03/05/24 09:19 Dose: 80 mg Documented By: DREW Calcium Carbonate (Calcium Carbonate 750 Mg Tab.Chew) 750 mg PO Q4H PRN PRN Reason: Heartburn Carvedilol (Carvedilol 12.5 Mg Tablet) 37.5 mg PO BID [facility]; Protocol Last Admin: 03/05/24 09:20 Dose: 37.5 mg Documented By: DREW Clonidine HCl (Clonidine Hcl 0.2 Mg Tablet) 0.2 mg PO BEDTIME [facility]; Protocol Last Admin: 03/04/24 21:10 Dose: 0.2 mg Documented By: LNIDA Diphenhydramine HCl (Diphenhydramine Hcl 25 Mg Capsule) 25 mg PO DAILY [facility] Last Admin: 03/05/24 09:21 Dose: 25 mg Documented By: DREW Ezetimibe (Ezetimibe 10 Mg Tablet) 10 mg PO DAILY [facility] Last Admin: 03/05/24 09:20 Dose: 10 mg Documented By: DREW Enoxaparin Sodium (Enoxaparin Sodium 30 Mg/0.3 Ml Syringe) 30 mg SUBCUT Q24H [facility] Last Admin: 03/04/24 14:24 Dose: 30 mg Documented By: PAOLO Ferrous Sulfate (Ferrous Sulfate 324 Mg Tablet.) 324 mg PO DAILY [facility] Last Admin: 03/05/24 09:19 Dose: 324 mg Documented By: DREW Fluticasone/Vilanterol (Fluticasone/Vilanterol 100/25 Blst.W.Dev) 1 puff INHALE RDAILY [facility] Gabapentin (Gabapentin 100 Mg Capsule) 100 mg PO TID [facility] Last Admin: 03/05/24 09:19 Dose: 100 mg Documented By: DREW Vancomycin HCl 500 mg/ Sodium (Chloride) 110 mls @ 110 mls/hr IV Q24H [facility] Lorazepam (Lorazepam 0.5 Mg Tablet) 0.5 mg PO BEDTIME [facility] Last Admin: 03/04/24 21:10 Dose: 0.5 mg Documented By: LINDA Magnesium Hydroxide (Milk Of Magnesia 30 Ml Oral.Susp) 30 ml PO DAILY PRN PRN Reason: Constipation Melatonin (Melatonin 3 Mg Tablet) 6 mg PO BEDTIME PRN PRN Reason: Insomnia Omeprazole (Omeprazole 20 Mg Capsule.) 20 mg PO DAILY@0630 [facility] Last Admin: 03/05/24 05:06 Dose: 20 mg Documented By: JOSE Ondansetron HCl (Ondansetron Hcl 4 Mg/2 Ml Vial) 4 mg IVPUSH Q8H PRN PRN Reason: Nausea and Vomiting Oxycodone HCl (Oxycodone Hcl Immed Release 5 Mg Tablet) 5 mg PO Q6H PRN PRN Reason: Pain, Severe (Pain Scale 7-10) Last Admin: 03/04/24 19:37 Dose: 5 mg Documented By: LINDA Pharmacy Consult (Consult Rx Vancomycin Dosing) 1 each MISCELLANE DAILY PRN PRN Reason: Consult order Sertraline HCl (Sertraline Hcl 50 Mg Tablet) 50 mg PO DAILY [facility] Last Admin: 03/05/24 09:19 Dose: 50 mg Documented By: DREW Sodium Chloride (0.9 % Sodium Chloride Flush 3 Ml Syringe) 3 ml IVFLUSH QSHIFT [facility] Last Admin: 03/05/24 02:40 Dose: 3 ml Documented By: LINDA Trazodone HCl (Trazodone Hcl 50 Mg Tablet) 50 mg PO BEDTIME [facility] Last Admin: 03/04/24 21:10 Dose: 50 mg Documented By: LINDA Vitamin D (Cholecalciferol (Vitamin D3) 25 Mcg Tablet) 25 mcg PO DAILY [facility] Last Admin: 03/05/24 09:20 Dose: 25 mcg Documented By: DREW Labs 03/05/24 07:39 03/05/24 07:39 Labs: Laboratory Results - last 24 hr 03/04/24 03/04/24 03/04/24 10:32 18:42 19:58 MCV 81.9 MCH 26.8 L MCHC 32.7 RDW 18.0 H Plt Count 326 MPV 10.7 Immature Gran % (Auto) 3.7 H Neut % (Auto) 82.5 H Lymph % (Auto) 5.7 L [place] % (Auto) 7.8 Eos % (Auto) 0.1 Baso % (Auto) 0.2 Lymph # (Auto) 1.2 [place] # (Auto) 1.6 H Eos # (Auto) 0.0 Baso # (Auto) 0.0 Abs Immat Gran (auto) 0.77 H Absolute Neuts (auto) 17.4 H Absolute Nucleated RBC 0.000 Nucleated RBC % (auto) 0.0 Smear Tech's Comments VERIFIED Anion Gap 19 Estim Creat Clear Calc 21.2 Estimated GFR 17 Random Glucose 114 Lactic Acid 1.6 Calcium 8.2 L D Magnesium 1.2 L* Total Bilirubin 0.3 Direct Bilirubin 0.1 AST 21 ALT 9 Alkaline Phosphatase 91 B-Natriuretic Peptide 320 H Total Protein 6.9 Albumin 3.2 L Lipase 70 Urine Color Yellow Urine Appearance Cloudy Urine pH 5.5 Ur Specific [place] 1.010 Urine Protein 30 (1+) H Urine Glucose (UA) Negative Urine Ketones Negative Urine Blood Negative Urine Nitrite Negative Ur Leukocyte Esterase Negative Urine RBC 0-2 Urine WBC 0-5 Ur Squamous Epith Cells 3-5 Urine Bacteria None Seen Hyaline Casts 3-5 Blood Type A Positive Antibody Screen NEGATIVE 03/05/24 07:39 MCV 83.1 MCH 26.3 L MCHC 31.7 RDW 18.3 H Plt Count 354 MPV 10.6 Immature Gran % (Auto) 1.8 H Neut % (Auto) 76.7 H Lymph % (Auto) 11.9 L [place] % (Auto) 8.5 Eos % (Auto) 0.7 Baso % (Auto) 0.4 Lymph # (Auto) 1.8 [place] # (Auto) 1.3 H Eos # (Auto) 0.1 Baso # (Auto) 0.1 Abs Immat Gran (auto) 0.27 H Absolute Neuts (auto) 11.3 H Absolute Nucleated RBC 0.000 Nucleated RBC % (auto) 0.0 Smear Tech's Comments Anion Gap 13 Estim Creat Clear Calc 36.3 Estimated GFR 31 Random Glucose 95 Lactic Acid Calcium 8.1 L Magnesium 1.7 Total Bilirubin Direct Bilirubin AST ALT Alkaline Phosphatase B-Natriuretic Peptide Total Protein Albumin Lipase Urine Color Urine Appearance Urine pH Ur Specific [place] Urine Protein Urine Glucose (UA) Urine Ketones Urine Blood Urine Nitrite Ur Leukocyte Esterase Urine RBC Urine WBC Ur Squamous Epith Cells Urine Bacteria Hyaline Casts Blood Type Antibody Screen Microbiology Microbiology Results: Microbiology 03/04/24 10:32 Blood Culture - Preliminary Blood - Venous Assessment and Plan (1) Anemia: Status: Acute (2) Cellulitis of left leg: Status: Acute Plan This is a 74-year-old female with pertinent history of congestive heart failure with preserved ejection fraction, CKD stage 3, hypertension, mood disorder, COPD not on home oxygen presents to the emergency department for evaluation of fevers and chills. #. Sepsis due to left leg cellulitis: Continue IV vancomycin (start date: 03/04). Improvement noted with IV antibiotics. #. Acute kidney injury stage II: Improving with IV crystalloids. Continue to monitor and avoid nephrotoxins #. Acute anemia: Hemoglobin found to be 6.4. Will order 1 unit PRBC. Obtaining iron profile, B12 and folate. May need GI consult if hemoglobin continues to drop. #. Nausea/vomiting/diarrhea in the setting of sepsis. GI panel pending #. Hypokalemia and hypomagnesemia due to GI losses: Resolved with repletion #. Congestive heart failure with preserved ejection fraction: Hold Lasix in the setting of MALLIKA #. Hypertension: Hold spironolactone, losartan in the setting of MALLIKA #. Mood disorder: Continue home mood stabilizers #. Mixed hyperlipidemia: Continue statin and Zetia #. COPD: No exacerbation during admission. Continue home inhaler DVT prophylaxis: Lovenox Full code Reason for continued hospitalization: IV antibiotics, close monitoring of kidney function and hemoglobin (as above), which is not possible in a lesser acute setting. Quality Stroke Does the patient have a stroke diagnosis?: No VTE Prior VTE?: No VTE Risk Level:: Medical - moderate - high VTE Device Contraindication: Treatment Not Indicated VTE Drug Contraindication: N/A - Med Ordered
--- NOTE | 2024-03-05 13:04 | HO.WOUND ---
Wound Consult: Initial 74yr old?female admitted to [facility] [place] on 03/04/24 - See progress notes and H&P for detailed history.? Wound consult placed for Left Leg Cellulitis.? Patient agreeable to assessment and photo documentation.? See chart review for complex history. The patient reports the leg does appear improved in terms of erythema however it has never been up to her knee in prior cellulitis episode and understandable the patient is concerned since she is s/p knee replacement on the left side - provider to be made aware per direct care nurse. Marking pen used to tatianna outline of erythema - see photos below. Left Heel Left Leg Left Knee Left Leg posterior calf Etiology: ?Cellulitits Wound Bed: various areas to lateral knee and posterior calf with epidermal sloughing Drainage / Odor: yellow drainage noted on bed linen Edges: ? irregular [place] wound: ?red warm swollen, tender / painful to touch, psoriasis noted to both feet ankles Pain: pt reports pain Goals of Treatment: ? Elevate - Provider to continue to treat systemically and topically with xeroform and gauze Recommendations: 1. Turn and Reposition every 2 hours and as needed for patient comfort.? Use pillows or wedges to support off loading positions. 2. Off Load all bony prominences with use of pillows and heel boots if needed.? Apply Preventative foams where needed. ? 3. Monitor for incontinence and moisture control, use barrier creams when needed for prevention and treatment. 4. Provide adequate and supplemental nutrition.? 5. Order low air loss mattress. 6. Left Leg - Elevate lower legs off of surface of bed with use of pillows.? Cleanse with NS, Pat dry.? Apply vaseline to both legs, apply layer of Xeroform to open wound beds secure with ABD pad, gauze wrap and tape.? Change Daily. Re-consult wound care Nurse for wound deterioration or wound changes.
[2024-03-05] MEDS: Enoxaparin Sodium 30 MG/0.3 ML SYRINGE SUBCUT (13:32)
--- NOTE | 2024-03-05 13:40 | MHC.CM.PN ---
PT REPORTS SHE LIVES WITH HER MOTHER AND IS INDEPENDENT WITH CARE SHE HAS NO SERVICES AND USES A WALKER FOR ANYTHING OTHER THAN VERY SHORT DISTANCES SHE AHS A HCP ON FILE PCP: ADRIENNE CAMPUZANO DCP: HOME VIA PRIVATE TRANSPORT
[2024-03-05] MEDS: traZODone HCL 50 MG TABLET PO (22:28)
[2024-03-05] MEDS: LORazepam 0.5 MG TABLET PO (22:28)
[2024-03-05] MEDS: vancomycin HCL 500 MG in 0.9 % Sodium Chloride 100 ML 110 MG IV (22:32)
[2024-03-05] MEDS: cloNIDine HCL 0.2 MG TABLET PO (22:34)
[2024-03-06 03:54] VITALS: BP 136/63; PULSE 72; RESP 16; TEMP 36.8; O2SAT 97
[2024-03-06 06:14] LABS: Basophils Absolute Auto 0.1 X10*3/uL (0.0-0.2); Basophils Percent Auto 0.4 % (0-2); Eosinophils Absolute Auto 0.1 X10*3/uL (0.0-0.4); Eosinophils Percent Auto 0.8 % (0-4); Hematocrit 24.3 % (37.0-47.0); Hemoglobin 7.7 g/dl (12.0-16.0); Imm Gran Abs Auto 0.41 X10*3/uL (0.00-0.03); Imm Gran Pct Auto 2.7 % (0.0-0.4); Lymphocytes Absolute Auto 2.1 X10*3/uL (1.2-4.9); Lymphocytes Percent Auto 13.7 % (20-40); MANUAL DIFF FLAG SCAN; Mean Corpuscular HGB Conc 31.7 g/dl (31.0-35.0); Mean Corpuscular Hemoglobin 26.6 pg (27.0-33.0); Mean Corpuscular Volume 84.1 fL (80.0-98.0); Mean Platelet Volume 10.3 fL (9.4-12.3); Monocytes Absolute Auto 1.4 X10*3/uL (0.1-1.2); Monocytes Percent Auto 9.3 % (2-11); Neutrophils Percent Auto 73.1 % (45-73); Platelet Count 457 X10*3/uL (160-400); Red Blood Count 2.89 X10*6/uL (4.20-5.50); Red Cell Distribution Width 18.1 % (11.0-16.0); SCAN SMEAR FLAG 1; White Blood Count 15.1 X10*3/uL (4.8-10.8)
[2024-03-06] MEDS: Omeprazole 20 MG CAPSULE.DR PO (06:18)
[2024-03-06 06:41] LABS: SLIDE REVIEW VERIFIED
[2024-03-06 06:43] LABS: Estimated Glomerular Filt Rate 49; Iron 11 mcg/dL (30-160); Percent Iron Saturation 6 % (15-50); Total Iron Binding Capacity 190 mcg/dL (228-428); Unsaturated Iron Binding 179 ug/dL
[2024-03-06 06:49] LABS: Anion Gap 12 (12-20); Blood Urea Nitrogen 24 mg/dL (9-16); Calcium 8.5 mg/dL (8.4-10.2); Carbon Dioxide 24 mmol/L (22-29); Chloride 102 mmol/L (96-108); Creatinine Clr Calc Pharmacy 54.4; Estimated Glomerular Filt Rate 50; Glucose Random 102 mg/dL (60-115); Potassium 3.5 mmol/L (3.3-5.1); Sodium 134 mmol/L (135-145)
[2024-03-06 07:27] LABS: Vitamin B12 878 pg/mL (200-900)
[2024-03-06 08:00] VITALS: BP 154/87; PULSE 74; RESP 18; TEMP 36.7; O2SAT 96
[2024-03-06] MEDS: Gabapentin 100 MG CAPSULE PO ×3 (08:44→21:29)
[2024-03-06] MEDS: Ferrous Sulfate 324 MG TABLET.DR PO (08:44)
[2024-03-06] MEDS: Ezetimibe 10 MG TABLET PO (08:44)
[2024-03-06] MEDS: carvediloL 12.5 MG TABLET 37.5 MG PO ×2 (08:44→21:29)
[2024-03-06] MEDS: diphenhydrAMINE HCL 25 MG CAPSULE PO (08:44)
[2024-03-06] MEDS: Cholecalciferol (Vitamin D3) 25 MCG TABLET PO (08:44)
[2024-03-06] MEDS: Atorvastatin Calcium 80 MG TABLET PO (08:44)
[2024-03-06] MEDS: Sertraline HCL 50 MG TABLET PO (08:44)
[2024-03-06] MEDS: 0.9 % Sodium Chloride Flush 3 ML SYRINGE IVFLUSH ×3 (08:44→21:29)
[2024-03-06] MEDS: Enoxaparin Sodium 30 MG/0.3 ML SYRINGE SUBCUT (13:13)
[2024-03-06] MEDS: Acetaminophen 325 MG TABLET 650 MG PO (13:13)
[2024-03-06] MEDS: oxyCODONE HCl Immed Release 5 MG TABLET PO (13:14)
--- NOTE | 2024-03-06 15:21 | HO.PM.IMPN ---
Subjective Subjective Date of Service: 03/06/24 Interval History: No acute issues overnight. Remains afebrile Review of Systems Denies chest pain Denies shortness of breath Denies nausea vomiting diarrhea Denies fever chills Physical Exam Vital Signs: Vital Signs: Last Vital Signs Temp 98.0 F 03/06/24 08:00 Pulse 74 03/06/24 08:00 Resp 18 03/06/24 08:00 BP 154/87 H 03/06/24 08:00 Pulse Ox 96 03/06/24 08:00 O2 Del Method Room Air 03/06/24 08:00 BMI result Body Mass Index 38.3 Const: Other: Awake alert oriented x3 no acute distress Resp: Other: Clear to auscultation bilaterally no rales rhonchi or wheezes Cardio: Other: No S4; positive S1-S2; no S3 murmurs rubs or gallops GI: Other: Soft nontender nondistended normoactive bowel sounds Extrem: Other: Left lower extremity erythema above knee. Somewhat improved given initial markings Objective Data Active Medications Acetaminophen (Acetaminophen 325 Mg Tablet) 650 mg PO Q6H PRN PRN Reason: Pain, Mild (Pain Scale 1-3), fever or headache Last Admin: 03/06/24 13:13 Dose: 650 mg Documented By: RODDY Atorvastatin Calcium (Atorvastatin Calcium 80 Mg Tablet) 80 mg PO DAILY [facility] Last Admin: 03/06/24 08:44 Dose: 80 mg Documented By: RODDY Calcium Carbonate (Calcium Carbonate 750 Mg Tab.Chew) 750 mg PO Q4H PRN PRN Reason: Heartburn Carvedilol (Carvedilol 12.5 Mg Tablet) 37.5 mg PO BID [facility]; Protocol Last Admin: 03/06/24 08:44 Dose: 37.5 mg Documented By: RODDY Clonidine HCl (Clonidine Hcl 0.2 Mg Tablet) 0.2 mg PO BEDTIME [facility]; Protocol Last Admin: 03/05/24 22:34 Dose: 0.2 mg Documented By: GABRIELLE Diphenhydramine HCl (Diphenhydramine Hcl 25 Mg Capsule) 25 mg PO DAILY [facility] Last Admin: 03/06/24 08:44 Dose: 25 mg Documented By: RODDY Ezetimibe (Ezetimibe 10 Mg Tablet) 10 mg PO DAILY [facility] Last Admin: 03/06/24 08:44 Dose: 10 mg Documented By: RODDY Enoxaparin Sodium (Enoxaparin Sodium 30 Mg/0.3 Ml Syringe) 30 mg SUBCUT Q24H [facility] Last Admin: 03/06/24 13:13 Dose: 30 mg Documented By: RODDY Ferrous Sulfate (Ferrous Sulfate 324 Mg Tablet.) 324 mg PO DAILY [facility] Last Admin: 03/06/24 08:44 Dose: 324 mg Documented By: RODDY Fluticasone/Vilanterol (Fluticasone/Vilanterol 100/25 Blst.W.Dev) 1 puff INHALE RDAILY [facility] Last Admin: 03/06/24 09:56 Dose: Not Given Documented By: RODDY Non-Admin Reason: not given by respHermelindo Gabapentin (Gabapentin 100 Mg Capsule) 100 mg PO TID [facility] Last Admin: 03/06/24 14:11 Dose: 100 mg Documented By: RODDY Vancomycin HCl 500 mg/ Sodium (Chloride) 110 mls @ 110 mls/hr IV Q24H [facility] Last Infusion: 03/05/24 23:40 Dose: Infused Documented By: GABRIELLE Lorazepam (Lorazepam 0.5 Mg Tablet) 0.5 mg PO BEDTIME [facility] Last Admin: 03/05/24 22:28 Dose: 0.5 mg Documented By: GABRIELLE Magnesium Hydroxide (Milk Of Magnesia 30 Ml Oral.Susp) 30 ml PO DAILY PRN PRN Reason: Constipation Melatonin (Melatonin 3 Mg Tablet) 6 mg PO BEDTIME PRN PRN Reason: Insomnia Omeprazole (Omeprazole 20 Mg Capsule.) 20 mg PO DAILY@0630 [facility] Last Admin: 03/06/24 06:18 Dose: 20 mg Documented By: GABRIELLE Ondansetron HCl (Ondansetron Hcl 4 Mg/2 Ml Vial) 4 mg IVPUSH Q8H PRN PRN Reason: Nausea and Vomiting Oxycodone HCl (Oxycodone Hcl Immed Release 5 Mg Tablet) 5 mg PO Q4H PRN PRN Reason: Pain, Moderate(Pain Scale 4-6) Last Admin: 03/06/24 13:14 Dose: 5 mg Documented By: RODDY Pharmacy Consult (Consult Rx Vancomycin Dosing) 1 each MISCELLANE DAILY PRN PRN Reason: Consult order Sertraline HCl (Sertraline Hcl 50 Mg Tablet) 50 mg PO DAILY [facility] Last Admin: 03/06/24 08:44 Dose: 50 mg Documented By: RODDY Sodium Chloride (0.9 % Sodium Chloride Flush 3 Ml Syringe) 3 ml IVFLUSH QSHIFT [facility] Last Admin: 03/06/24 14:12 Dose: 3 ml Documented By: RODDY Trazodone HCl (Trazodone Hcl 50 Mg Tablet) 50 mg PO BEDTIME [facility] Last Admin: 03/05/24 22:28 Dose: 50 mg Documented By: GABRIELLE Vitamin D (Cholecalciferol (Vitamin D3) 25 Mcg Tablet) 25 mcg PO DAILY [facility] Last Admin: 03/06/24 08:44 Dose: 25 mcg Documented By: RODDY Labs 03/06/24 05:41 03/06/24 05:41 Labs: Laboratory Results - last 24 hr 03/06/24 03/06/24 03/06/24 05:41 05:41 05:41 MCV 84.1 MCH 26.6 L MCHC 31.7 RDW 18.1 H Plt Count 457 H D MPV 10.3 Immature Gran % (Auto) 2.7 H Neut % (Auto) 73.1 H Lymph % (Auto) 13.7 L [place] % (Auto) 9.3 Eos % (Auto) 0.8 Baso % (Auto) 0.4 Lymph # (Auto) 2.1 [place] # (Auto) 1.4 H Eos # (Auto) 0.1 Baso # (Auto) 0.1 Abs Immat Gran (auto) 0.41 H Absolute Neuts (auto) 11.0 H Absolute Nucleated RBC 0.000 Nucleated RBC % (auto) 0.0 Smear Tech's Comments VERIFIED Anion Gap 12 Estim Creat Clear Calc 54.0 54.4 Estimated GFR 49 50 Random Glucose 102 Calcium 8.5 Iron 11 L TIBC 190 L % Saturation 6 L Unsat Iron Binding 179 Vitamin B12 878 Folate 3.0 L Microbiology Microbiology Results: Microbiology 03/04/24 10:55 Blood Culture - Preliminary Blood - Venous No growth after 48 hours. 03/04/24 10:32 Blood Culture - Preliminary Blood - Venous No growth after 48 hours. Assessment and Plan (1) Cellulitis of left leg: Status: Acute (2) Anemia: Status: Acute Plan 74-year-old female with pertinent history of congestive heart failure with preserved ejection fraction, CKD stage 3, hypertension, mood disorder, COPD not on home oxygen presents to the emergency department for evaluation of fevers and chills... Found to have recurrent left lower extremity cellulitis 1.Sepsis due to left leg cellulitis -sepsis resolved -continue vancomycin (2) -ID consult in a.m. 2.Acute kidney injury -responding to volume repletion -follow renals/divalents 3.Acute anemia -hemoglobin stable after 1 unit PRBC -follow daily CBC -GI consult a.m. 4.Hypokalemia/hypomagnesemia -resolved secondary to volume 5.Hypertension -acceptable control off current therapies -resume when appropriate 6. HFpEF -stable and well compensated at this time Lovenox Full code Requires ongoing hospitalization for IV antibiotics to treat cellulitis and specialty consultation Quality Stroke Does the patient have a stroke diagnosis?: No VTE Prior VTE?: No VTE Risk Level:: Medical - moderate - high VTE Device Contraindication: Treatment Not Indicated VTE Drug Contraindication: N/A - Med Ordered
[2024-03-06 15:27] VITALS: BP 125/86; PULSE 73; RESP 18; TEMP 36.2; O2SAT 96
[2024-03-06 20:00] VITALS: BP 117/62; PULSE 70; RESP 18; TEMP 36.3; O2SAT 99
[2024-03-06 21:04] LABS: Vancomycin Random 8.5 mcg/mL (15-20)
[2024-03-06] MEDS: traZODone HCL 50 MG TABLET PO (21:29)
[2024-03-06] MEDS: cloNIDine HCL 0.2 MG TABLET PO (21:29)
[2024-03-06] MEDS: LORazepam 0.5 MG TABLET PO (21:29)
[2024-03-06] MEDS: vancomycin HCL 1,000 MG in 0.9 % Sodium Chloride 250 ML 270 MG IV (21:32)
[2024-03-07 04:00] VITALS: BP 139/63; PULSE 80; RESP 16; TEMP 36.8; O2SAT 95
[2024-03-07] MEDS: oxyCODONE HCl Immed Release 5 MG TABLET PO ×2 (05:23→10:03)
[2024-03-07] MEDS: Acetaminophen 325 MG TABLET 650 MG PO (05:23)
[2024-03-07] MEDS: Omeprazole 20 MG CAPSULE.DR PO (05:23)
[2024-03-07 06:16] LABS: MANUAL DIFF FLAG NO
[2024-03-07 06:18] LABS: Basophils Absolute Auto 0.1 X10*3/uL (0.0-0.2); Basophils Percent Auto 0.4 % (0-2); Eosinophils Absolute Auto 0.2 X10*3/uL (0.0-0.4); Hematocrit 25.1 % (37.0-47.0); Imm Gran Abs Auto 0.58 X10*3/uL (0.00-0.03); Imm Gran Pct Auto 3.6 % (0.0-0.4); Lymphocytes Absolute Auto 1.8 X10*3/uL (1.2-4.9); Lymphocytes Percent Auto 11.1 % (20-40); Mean Corpuscular HGB Conc 31.9 g/dl (31.0-35.0); Mean Corpuscular Hemoglobin 27.1 pg (27.0-33.0); Mean Corpuscular Volume 85.1 fL (80.0-98.0); Mean Platelet Volume 10.9 fL (9.4-12.3); Monocytes Absolute Auto 1.3 X10*3/uL (0.1-1.2); Neutrophils Absolute Auto 12.4 x10*3/uL (2.0-8.3); Neutrophils Percent Auto 75.9 % (45-73); Platelet Count 428 X10*3/uL (160-400); Red Blood Count 2.95 X10*6/uL (4.20-5.50); Red Cell Distribution Width 18.6 % (11.0-16.0); White Blood Count 16.3 X10*3/uL (4.8-10.8)
[2024-03-07 06:33] LABS: Alanine Aminotransferase 17 U/L (0-31); Albumin Level 2.8 g/dL (3.5-5.0); Alkaline Phosphatase 86 U/L (39-117); Anion Gap 15 (12-20); Aspartate Amino Transferase 30 U/L (5-31); Bilirubin Total 0.3 mg/dL (0.0-1.0); Blood Urea Nitrogen 20 mg/dL (9-16); Calcium 8.8 mg/dL (8.4-10.2); Carbon Dioxide 21 mmol/L (22-29); Chloride 101 mmol/L (96-108); Creatinine Clr Calc Pharmacy 51.6; Estimated Glomerular Filt Rate 47; Glucose Fasting 133 mg/dL (60-99); Potassium 3.8 mmol/L (3.3-5.1); Sodium 133 mmol/L (135-145); Total Protein 6.4 g/dL (6.5-8.0)
[2024-03-07 08:00] VITALS: BP 128/58; PULSE 80; RESP 20; TEMP 36.4; O2SAT 92
[2024-03-07] MEDS: Ezetimibe 10 MG TABLET PO (08:47)
[2024-03-07] MEDS: Gabapentin 100 MG CAPSULE PO ×3 (08:47→21:28)
[2024-03-07] MEDS: Sertraline HCL 50 MG TABLET PO (08:47)
[2024-03-07] MEDS: Atorvastatin Calcium 80 MG TABLET PO (08:47)
[2024-03-07] MEDS: 0.9 % Sodium Chloride Flush 3 ML SYRINGE IVFLUSH ×3 (08:47→21:31)
[2024-03-07] MEDS: Ferrous Sulfate 324 MG TABLET.DR PO (08:47)
[2024-03-07] MEDS: Cholecalciferol (Vitamin D3) 25 MCG TABLET PO (08:47)
[2024-03-07] MEDS: diphenhydrAMINE HCL 25 MG CAPSULE PO (08:47)
[2024-03-07] MEDS: carvediloL 12.5 MG TABLET 37.5 MG PO ×2 (08:51→21:28)
--- NOTE | 2024-03-07 10:48 | HO.SKINPHOTO ---
Location: L Calf Location: L knee
--- NOTE | 2024-03-07 13:14 | P.PNIM_ITS ---
Subjective Subjective Date of Service: 03/07/24 Interval History: Like looks improved since yesterday. Pain control adequate Review of Systems Denies chest pain Denies shortness of breath Denies nausea vomiting diarrhea Denies fever chills Physical Exam 2 Vital Signs: Vital Signs: Last Vital Signs Temp 97.5 F 03/07/24 08:00 Pulse 80 03/07/24 08:00 Resp 20 03/07/24 08:00 BP 128/58 L 03/07/24 08:00 Pulse Ox 92 03/07/24 08:00 O2 Del Method Room Air 03/07/24 08:00 BMI result Body Mass Index 38.3 Const: Other: Awake alert oriented x3 no acute distress Resp: Other: Clear to auscultation bilaterally no rales rhonchi or wheezes Cardio: Other: No S4; positive S1-S2; no S3 murmurs rubs or gallops GI: Other: Soft nontender nondistended normoactive bowel sounds Extrem: Other: Left lower extremity erythema above knee. Somewhat improved given initial markings Objective Data Active Medications Acetaminophen (Acetaminophen 325 Mg Tablet) 650 mg PO Q6H PRN PRN Reason: Pain, Mild (Pain Scale 1-3), fever or headache Last Admin: 03/07/24 05:23 Dose: 650 mg Documented By: GABRIELLE Atorvastatin Calcium (Atorvastatin Calcium 80 Mg Tablet) 80 mg PO DAILY [facility] Last Admin: 03/07/24 08:47 Dose: 80 mg Documented By: RODDY Calcium Carbonate (Calcium Carbonate 750 Mg Tab.Chew) 750 mg PO Q4H PRN PRN Reason: Heartburn Carvedilol (Carvedilol 12.5 Mg Tablet) 37.5 mg PO BID [facility]; Protocol Last Admin: 03/07/24 08:51 Dose: 37.5 mg Documented By: RODDY Clonidine HCl (Clonidine Hcl 0.2 Mg Tablet) 0.2 mg PO BEDTIME [facility]; Protocol Last Admin: 03/06/24 21:29 Dose: 0.2 mg Documented By: GABRIELLE Diphenhydramine HCl (Diphenhydramine Hcl 25 Mg Capsule) 25 mg PO DAILY [facility] Last Admin: 03/07/24 08:47 Dose: 25 mg Documented By: RODDY Ezetimibe (Ezetimibe 10 Mg Tablet) 10 mg PO DAILY [facility] Last Admin: 03/07/24 08:47 Dose: 10 mg Documented By: RODDY Enoxaparin Sodium (Enoxaparin Sodium 40 Mg/0.4 Ml Syringe) 40 mg SUBCUT Q24H [facility] Ferrous Sulfate (Ferrous Sulfate 324 Mg Tablet.) 324 mg PO DAILY [facility] Last Admin: 03/07/24 08:47 Dose: 324 mg Documented By: RODDY Fluticasone/Vilanterol (Fluticasone/Vilanterol 100/25 Blst.W.Dev) 1 puff INHALE RDAILY [facility] Last Admin: 03/07/24 09:22 Dose: Not Given Documented By: RODDY Non-Admin Reason: not given by resp. Gabapentin (Gabapentin 100 Mg Capsule) 100 mg PO TID [facility] Last Admin: 03/07/24 08:47 Dose: 100 mg Documented By: RODDY Vancomycin HCl 1,000 mg/ (Sodium Chloride) 270 mls @ 270 mls/hr IV Q24H [facility] Last Infusion: 03/06/24 22:33 Dose: Infused Documented By: GABRIELLE Lorazepam (Lorazepam 0.5 Mg Tablet) 0.5 mg PO BEDTIME [facility] Last Admin: 03/06/24 21:29 Dose: 0.5 mg Documented By: GABRIELLE Magnesium Hydroxide (Milk Of Magnesia 30 Ml Oral.Susp) 30 ml PO DAILY PRN PRN Reason: Constipation Melatonin (Melatonin 3 Mg Tablet) 6 mg PO BEDTIME PRN PRN Reason: Insomnia Omeprazole (Omeprazole 20 Mg Capsule.) 20 mg PO DAILY@0630 [facility] Last Admin: 03/07/24 05:23 Dose: 20 mg Documented By: GABRIELLE Ondansetron HCl (Ondansetron Hcl 4 Mg/2 Ml Vial) 4 mg IVPUSH Q8H PRN PRN Reason: Nausea and Vomiting Oxycodone HCl (Oxycodone Hcl Immed Release 5 Mg Tablet) 5 mg PO Q4H PRN PRN Reason: Pain, Moderate(Pain Scale 4-6) Last Admin: 03/07/24 10:03 Dose: 5 mg Documented By: RODDY Pharmacy Consult (Consult Rx Vancomycin Dosing) 1 each MISCELLANE DAILY PRN PRN Reason: Consult order Sertraline HCl (Sertraline Hcl 50 Mg Tablet) 50 mg PO DAILY [facility] Last Admin: 03/07/24 08:47 Dose: 50 mg Documented By: RODDY Sodium Chloride (0.9 % Sodium Chloride Flush 3 Ml Syringe) 3 ml IVFLUSH QSHIFT [facility] Last Admin: 03/07/24 08:47 Dose: 3 ml Documented By: RODDY Trazodone HCl (Trazodone Hcl 50 Mg Tablet) 50 mg PO BEDTIME [facility] Last Admin: 03/06/24 21:29 Dose: 50 mg Documented By: GABRIELLE Vitamin D (Cholecalciferol (Vitamin D3) 25 Mcg Tablet) 25 mcg PO DAILY [facility] Last Admin: 03/07/24 08:47 Dose: 25 mcg Documented By: RODDY Labs 03/07/24 05:57 03/07/24 05:57 Labs: Laboratory Results - last 24 hr 03/06/24 03/07/24 20:07 05:57 MCV 85.1 MCH 27.1 MCHC 31.9 RDW 18.6 H Plt Count 428 H MPV 10.9 Immature Gran % (Auto) 3.6 H Neut % (Auto) 75.9 H Lymph % (Auto) 11.1 L [place] % (Auto) 8.0 Eos % (Auto) 1.0 Baso % (Auto) 0.4 Lymph # (Auto) 1.8 [place] # (Auto) 1.3 H Eos # (Auto) 0.2 Baso # (Auto) 0.1 Abs Immat Gran (auto) 0.58 H Absolute Neuts (auto) 12.4 H Absolute Nucleated RBC 0.000 Nucleated RBC % (auto) 0.0 Anion Gap 15 Estim Creat Clear Calc 51.6 Estimated GFR 47 Fasting Glucose 133 H Calcium 8.8 Total Bilirubin 0.3 AST 30 ALT 17 Alkaline Phosphatase 86 Total Protein 6.4 L Albumin 2.8 L Random Vancomycin 8.5 L Microbiology Microbiology Results: Microbiology 03/04/24 10:32 Blood Culture - Preliminary Blood - Venous No growth after 48 hours. 03/04/24 10:55 Blood Culture - Preliminary Blood - Venous No growth after 48 hours. Assessment and Plan (1) Cellulitis of left leg: Status: Acute Plan 74-year-old female with pertinent history of congestive heart failure with preserved ejection fraction, CKD stage 3, hypertension, mood disorder, COPD not on home oxygen presents to the emergency department for evaluation of fevers and chills... Found to have recurrent left lower extremity cellulitis 1.Sepsis due to left leg cellulitis -sepsis resolved -continue vancomycin (3) -ID consult pending 2.Acute kidney injury -normalized with volume repletion -follow renals/divalents 3.Acute anemia -hemoglobin stable after 1 unit PRBC -follow daily CBC 4.Hypokalemia/hypomagnesemia -resolved secondary to volume 5.Hypertension -acceptable control off current therapies -resume when appropriate 6. HFpEF -stable and well compensated at this time Lovenox Full code Requires ongoing hospitalization for IV antibiotics to treat cellulitis and specialty consultation Quality Stroke Does the patient have a stroke diagnosis?: No VTE Prior VTE?: No VTE Risk Level:: Medical - moderate - high VTE Device Contraindication: Treatment Not Indicated VTE Drug Contraindication: N/A - Med Ordered
[2024-03-07] MEDS: Enoxaparin Sodium 40 MG/0.4 ML SYRINGE SUBCUT (13:21)
[2024-03-07 15:05] VITALS: BP 118/62; PULSE 77; RESP 18; TEMP 36.9; O2SAT 98
[2024-03-07 18:43] VITALS: BP 146/59; PULSE 79; RESP 18; TEMP 36.2; O2SAT 97
[2024-03-07 20:25] LABS: Vancomycin Random 13.9 mcg/mL (15-20)
[2024-03-07] MEDS: LORazepam 0.5 MG TABLET PO (21:27)
[2024-03-07 21:28] VITALS: BP 140/62; PULSE 74
[2024-03-07] MEDS: cloNIDine HCL 0.2 MG TABLET PO (21:28)
[2024-03-07] MEDS: traZODone HCL 50 MG TABLET PO (21:28)
[2024-03-07] MEDS: vancomycin HCL 1,000 MG in 0.9 % Sodium Chloride 250 ML 270 MG IV (21:30)
[2024-03-07 22:28] VITALS: RESP 18
[2024-03-08 02:39] VITALS: BP 130/61; PULSE 74; RESP 17; TEMP 36.1; O2SAT 96
[2024-03-08] MEDS: Omeprazole 20 MG CAPSULE.DR PO (06:00)
[2024-03-08 07:59] VITALS: BP 137/60; PULSE 82; RESP 17; TEMP 37.2; O2SAT 98
[2024-03-08] MEDS: Gabapentin 100 MG CAPSULE PO ×3 (08:13→21:52)
[2024-03-08] MEDS: oxyCODONE HCl Immed Release 5 MG TABLET PO ×2 (08:13→15:23)
[2024-03-08] MEDS: carvediloL 12.5 MG TABLET 37.5 MG PO ×2 (08:13→20:01)
[2024-03-08] MEDS: Atorvastatin Calcium 80 MG TABLET PO (08:14)
[2024-03-08] MEDS: diphenhydrAMINE HCL 25 MG CAPSULE PO (08:14)
[2024-03-08] MEDS: Ferrous Sulfate 324 MG TABLET.DR PO (08:14)
[2024-03-08] MEDS: Ezetimibe 10 MG TABLET PO (08:14)
[2024-03-08] MEDS: Sertraline HCL 50 MG TABLET PO (08:14)
[2024-03-08] MEDS: Cholecalciferol (Vitamin D3) 25 MCG TABLET PO (08:14)
[2024-03-08] MEDS: 0.9 % Sodium Chloride Flush 3 ML SYRINGE IVFLUSH ×3 (08:17→21:56)
[2024-03-08] MEDS: Fluticasone/Vilanterol 100/25 BLST.W.DEV 1 PUFF INHALE (08:20)
[2024-03-08 08:23] VITALS: PULSE 86; RESP 20; O2SAT 98
[2024-03-08 09:27] LABS: MANUAL DIFF FLAG NO
[2024-03-08 09:31] LABS: Basophils Absolute Auto 0.1 X10*3/uL (0.0-0.2); Basophils Percent Auto 0.4 % (0-2); Eosinophils Absolute Auto 0.1 X10*3/uL (0.0-0.4); Eosinophils Percent Auto 0.8 % (0-4); Hematocrit 24.4 % (37.0-47.0); Hemoglobin 7.8 g/dl (12.0-16.0); Imm Gran Abs Auto 0.55 X10*3/uL (0.00-0.03); Imm Gran Pct Auto 3.3 % (0.0-0.4); Lymphocytes Absolute Auto 1.1 X10*3/uL (1.2-4.9); Lymphocytes Percent Auto 6.4 % (20-40); Mean Corpuscular Hemoglobin 27.5 pg (27.0-33.0); Mean Corpuscular Volume 85.9 fL (80.0-98.0); Monocytes Absolute Auto 1.2 X10*3/uL (0.1-1.2); Monocytes Percent Auto 6.9 % (2-11); Neutrophils Absolute Auto 13.9 x10*3/uL (2.0-8.3); Neutrophils Percent Auto 82.2 % (45-73); Platelet Count 543 X10*3/uL (160-400); Red Blood Count 2.84 X10*6/uL (4.20-5.50); Red Cell Distribution Width 18.6 % (11.0-16.0); White Blood Count 16.9 X10*3/uL (4.8-10.8)
[2024-03-08 09:46] LABS: Alanine Aminotransferase 20 U/L (0-31); Albumin Level 2.8 g/dL (3.5-5.0); Alkaline Phosphatase 93 U/L (39-117); Anion Gap 15 (12-20); Aspartate Amino Transferase 40 U/L (5-31); Bilirubin Total 0.3 mg/dL (0.0-1.0); Blood Urea Nitrogen 23 mg/dL (9-16); Calcium 8.5 mg/dL (8.4-10.2); Carbon Dioxide 21 mmol/L (22-29); Chloride 101 mmol/L (96-108); Creatinine Clr Calc Pharmacy 51.6; Estimated Glomerular Filt Rate 47; Glucose Fasting 121 mg/dL (60-99); Sodium 133 mmol/L (135-145); Total Protein 6.5 g/dL (6.5-8.0)
--- NOTE | 2024-03-08 12:32 | HO.PM.IMPN ---
Subjective Subjective Date of Service: 03/08/24 Interval History: States wound improved ; notes fatigue. Hemoglobin slowly drifting downward Review of Systems Denies chest pain Denies shortness of breath Denies nausea vomiting diarrhea Denies fever chills Physical Exam Vital Signs: Vital Signs: Last Vital Signs Temp 98.9 F 03/08/24 07:59 Pulse 86 03/08/24 08:23 Resp 20 03/08/24 08:23 BP 137/60 03/08/24 07:59 Pulse Ox 98 03/08/24 07:59 O2 Del Method Room Air 03/08/24 07:59 BMI result Body Mass Index 38.3 Const: Other: Awake alert oriented x3 no acute distress Resp: Other: Clear to auscultation bilaterally no rales rhonchi or wheezes Cardio: Other: No S4; positive S1-S2; no S3 murmurs rubs or gallops GI: Other: Soft nontender nondistended normoactive bowel sounds Extrem: Other: Left lower extremity erythema above knee. Somewhat improved given initial markings Objective Data Active Medications Acetaminophen (Acetaminophen 325 Mg Tablet) 650 mg PO Q6H PRN PRN Reason: Pain, Mild (Pain Scale 1-3), fever or headache Last Admin: 03/07/24 05:23 Dose: 650 mg Documented By: GABRIELLE Atorvastatin Calcium (Atorvastatin Calcium 80 Mg Tablet) 80 mg PO DAILY [facility] Last Admin: 03/08/24 08:14 Dose: 80 mg Documented By: RASHI Calcium Carbonate (Calcium Carbonate 750 Mg Tab.Chew) 750 mg PO Q4H PRN PRN Reason: Heartburn Carvedilol (Carvedilol 12.5 Mg Tablet) 37.5 mg PO BID [facility]; Protocol Last Admin: 03/08/24 08:13 Dose: 37.5 mg Documented By: RASHI Clonidine HCl (Clonidine Hcl 0.2 Mg Tablet) 0.2 mg PO BEDTIME [facility]; Protocol Last Admin: 03/07/24 21:28 Dose: 0.2 mg Documented By: MARGARITA Diphenhydramine HCl (Diphenhydramine Hcl 25 Mg Capsule) 25 mg PO DAILY [facility] Last Admin: 03/08/24 08:14 Dose: 25 mg Documented By: RASHI Ezetimibe (Ezetimibe 10 Mg Tablet) 10 mg PO DAILY [facility] Last Admin: 03/08/24 08:14 Dose: 10 mg Documented By: RASHI Enoxaparin Sodium (Enoxaparin Sodium 40 Mg/0.4 Ml Syringe) 40 mg SUBCUT Q24H [facility] Last Admin: 03/07/24 13:21 Dose: 40 mg Documented By: RODDY Ferrous Sulfate (Ferrous Sulfate 324 Mg Tablet.) 324 mg PO DAILY [facility] Last Admin: 03/08/24 08:14 Dose: 324 mg Documented By: RASHI Fluticasone/Vilanterol (Fluticasone/Vilanterol 100/25 Blst.W.Dev) 1 puff INHALE RDAILY [facility] Last Admin: 03/08/24 08:20 Dose: 1 puff Documented By: CARLO Gabapentin (Gabapentin 100 Mg Capsule) 100 mg PO TID [facility] Last Admin: 03/08/24 08:13 Dose: 100 mg Documented By: RASHI Vancomycin HCl 1,000 mg/ (Sodium Chloride) 270 mls @ 270 mls/hr IV Q24H [facility] Last Infusion: 03/07/24 22:30 Dose: Infused Documented By: MARGARITA Lorazepam (Lorazepam 0.5 Mg Tablet) 0.5 mg PO BEDTIME [facility] Last Admin: 03/07/24 21:27 Dose: 0.5 mg Documented By: MARGARITA Magnesium Hydroxide (Milk Of Magnesia 30 Ml Oral.Susp) 30 ml PO DAILY PRN PRN Reason: Constipation Melatonin (Melatonin 3 Mg Tablet) 6 mg PO BEDTIME PRN PRN Reason: Insomnia Omeprazole (Omeprazole 20 Mg Capsule.) 20 mg PO DAILY@0630 [facility] Last Admin: 03/08/24 06:00 Dose: 20 mg Documented By: MARGARITA Ondansetron HCl (Ondansetron Hcl 4 Mg/2 Ml Vial) 4 mg IVPUSH Q8H PRN PRN Reason: Nausea and Vomiting Oxycodone HCl (Oxycodone Hcl Immed Release 5 Mg Tablet) 5 mg PO Q4H PRN PRN Reason: Pain, Moderate(Pain Scale 4-6) Last Admin: 03/08/24 08:13 Dose: 5 mg Documented By: RASHI Pharmacy Consult (Consult Rx Vancomycin Dosing) 1 each MISCELLANE DAILY PRN PRN Reason: Consult order Sertraline HCl (Sertraline Hcl 50 Mg Tablet) 50 mg PO DAILY [facility] Last Admin: 03/08/24 08:14 Dose: 50 mg Documented By: RASHI Sodium Chloride (0.9 % Sodium Chloride Flush 3 Ml Syringe) 3 ml IVFLUSH QSHIFT [facility] Last Admin: 03/08/24 08:17 Dose: 3 ml Documented By: RASHI Trazodone HCl (Trazodone Hcl 50 Mg Tablet) 50 mg PO BEDTIME [facility] Last Admin: 03/07/24 21:28 Dose: 50 mg Documented By: MARGARITA Vitamin D (Cholecalciferol (Vitamin D3) 25 Mcg Tablet) 25 mcg PO DAILY [facility] Last Admin: 03/08/24 08:14 Dose: 25 mcg Documented By: RASHI Labs 03/08/24 09:01 03/08/24 09:01 Labs: Laboratory Results - last 24 hr 03/05/24 03/07/24 03/08/24 07:39 20:02 09:01 MCV 85.9 MCH 27.5 MCHC 32.0 RDW 18.6 H Plt Count 543 H D MPV 10.0 Immature Gran % (Auto) 3.3 H Neut % (Auto) 82.2 H Lymph % (Auto) 6.4 L [place] % (Auto) 6.9 Eos % (Auto) 0.8 Baso % (Auto) 0.4 Lymph # (Auto) 1.1 L [place] # (Auto) 1.2 Eos # (Auto) 0.1 Baso # (Auto) 0.1 Abs Immat Gran (auto) 0.55 H Absolute Neuts (auto) 13.9 H Absolute Nucleated RBC 0.000 Nucleated RBC % (auto) 0.0 Smear Path Review Anion Gap 15 Estim Creat Clear Calc 51.6 Estimated GFR 47 Fasting Glucose 121 H Calcium 8.5 Total Bilirubin 0.3 AST 40 H ALT 20 Alkaline Phosphatase 93 Total Protein 6.5 Albumin 2.8 L Random Vancomycin 13.9 L Assessment and Plan (1) Cellulitis of left leg: Status: Acute (2) Anemia: Status: Acute Plan 74-year-old female with pertinent history of congestive heart failure with preserved ejection fraction, CKD stage 3, hypertension, mood disorder, COPD not on home oxygen presents to the emergency department for evaluation of fevers and chills... Found to have recurrent left lower extremity cellulitis 1.Sepsis due to left leg cellulitis -sepsis resolved -continue vancomycin (4) -ID consult pending 2.Acute kidney injury -normalized with volume repletion -follow renals/divalents 3.Acute anemia -hemoglobin drifting downward - consult GI -follow daily CBC 4.Hypokalemia/hypomagnesemia -resolved secondary to volume 5.Hypertension -acceptable control off current therapies -resume when appropriate 6. HFpEF -stable and well compensated at this time Lovenox Full code Requires ongoing hospitalization for IV antibiotics to treat cellulitis and specialty consultation Quality Stroke Does the patient have a stroke diagnosis?: No VTE Prior VTE?: No VTE Risk Level:: Medical - moderate - high VTE Device Contraindication: Treatment Not Indicated VTE Drug Contraindication: N/A - Med Ordered
[2024-03-08] MEDS: Enoxaparin Sodium 40 MG/0.4 ML SYRINGE SUBCUT (13:13)
[2024-03-08 16:00] VITALS: BP 124/56; PULSE 81; RESP 14; TEMP 37.9; O2SAT 97
[2024-03-08] MEDS: Acetaminophen 325 MG TABLET 650 MG PO (16:27)
--- NOTE | 2024-03-08 17:59 | PM.EVENT ---
Event Note Date of Service: 03/08/24 Event Note: GI Consult-Full note dictated Imp/Recs: Anemia dating back to at least 2019. She presents now with worsening Iron def anemia requiring transfusion, and with associated Folate deficiency as well. Other than fatigue and not feeling well from her leg infection, she denies any GI complaints whatsoever. Her GERD(EGD in 1998) is asymptomatic on her PPI. She has had colonoscopies with me in 2007(1 tubular adenoma), 2012(neg), and 2018(neg). She does not use any ASA/NSAIDs, EtOH, or cigarettes. She has had no signs of bleeding. I doubt she has a significant GI process such as a neoplasm given her lack of GI sx, previous GI studies, and her good clinical appearance. She may have AVM's or polyps. Her chronic infection may be playing a role in her anemia as well. I advised her that she will need an eventual upper endo and colonoscopy for definitive evaluation, but we will have to wait for her to become more ambulatory. She may ultimately need a small bowel video capsule study as well, depending on her clinical course. In the meantime, continue her PPI and Iron. I placed orders to check stool Hemoccults, start Folic acid repletion, and check laboratories for celiac disease as a cause of Iron and Folate deficiency. I advised her that we can set up the upper endo and colonoscopy as an outpatient once she is feeling up to it and able to get around on her leg. D/W patient in detail and she is comfortable with this plan. Thanks Time Spent With Patient Time: Total time managing care of this patient today ____ minutes.
[2024-03-08] MEDS: Folic Acid 1 MG TABLET PO (19:01)
[2024-03-08 19:25] VITALS: TEMP 36.9
[2024-03-08 19:44] VITALS: BP 103/59; PULSE 70; RESP 16; TEMP 36.6; O2SAT 98
[2024-03-08] MEDS: cloNIDine HCL 0.2 MG TABLET PO (20:01)
[2024-03-08 21:30] LABS: Vancomycin Random 13.8 mcg/mL (15-20)
--- NOTE | 2024-03-08 21:35 | HE.PHANOTE ---
RE JAJA Patients level came back this evening at 13.8. Patients indication is skin infection, goal AUC 400-600. Currently patients AUC is determined to be 461, patients AUC is within goal. Continue with current dose. Pharmacy continue to monitor renal function daily, next level 03/10 @1999
[2024-03-08] MEDS: vancomycin HCL 1,000 MG in 0.9 % Sodium Chloride 250 ML 270 MG IV (21:52)
[2024-03-08] MEDS: traZODone HCL 50 MG TABLET PO (21:52)
[2024-03-08] MEDS: LORazepam 0.5 MG TABLET PO (21:52)
[2024-03-09] VITALS (17 sets, daily range): BP systolic 104–135; BP diastolic 55–78; PULSE 64–88; RESP 14–18; TEMP 36.1–37.5; O2SAT 96–99
[2024-03-09] MEDS: Acetaminophen 325 MG TABLET 650 MG PO ×2 (01:37→20:02)
[2024-03-09] MEDS: oxyCODONE HCl Immed Release 5 MG TABLET PO ×3 (01:37→20:06)
--- NOTE | 2024-03-09 02:59 | CONS_ITS ---
DATE OF SERVICE: 03/08/2024 REASON FOR CONSULTATION: Anemia with associated iron deficiency and folate deficiency. HISTORY OF PRESENT ILLNESS: This has been obtained for the patient and the medical record. The patient is a 74-year-old female known to me from previous office visits and outpatient procedures. She has had at least 3 previous colonoscopies with me. One procedure in 2007 revealed a small tubular adenoma that was removed. She subsequently had negative colonoscopies in 2012 and 2018. She also had an upper endoscopy in 1998 that revealed some reflux, but no evidence of any Daniels esophagus or significant esophagitis. The patient has been troubled by a fairly chronic left lower extremity infection with cellulitis subsequent to having developed a fractured ankle after a fall. She has been on varying courses of antibiotics for that and was admitted here several days ago for that same problem. She has had some anemia dating back to at least 2019, but this has been worsening and has been found to have iron deficiency requiring a transfusion on this admission. She was also found to have a folate deficiency. Other than some fatigue and not feeling well in general from the leg infection, she denies any GI complaints whatsoever. She is on chronic omeprazole for her reflux with good control. She denies any significant heartburn, dysphagia, early satiety, nausea, vomiting, nor anorexia. She denies any abdominal pain, jaundice, weight loss. She reports that her bowel movements are at her baseline of irritable bowel syndrome with some intermittent constipation and/or diarrhea, but there has been no significant changes and has been no sign of any hematochezia nor melena. She does not use any chronic aspirin, NSAIDs, alcohol, nor cigarettes. She did start herself on iron about a month ago. She denies any known family history of GI malignancy, inflammatory bowel disease, nor celiac disease. Since she has been here in the hospital, she has had no signs of GI bleeding either. At the present time, her left leg is quite swollen and uncomfortable in relation to the infection. PRESENT MEDICATIONS: Include acetaminophen, atorvastatin, Tums, carvedilol, vitamin D, clonidine, Benadryl, Lovenox, Zetia, iron, gabapentin, Ativan, omeprazole, Zofran, oxycodone, sertraline, trazodone, IV vancomycin. PAST MEDICAL HISTORY: Anemia as above. Upper endoscopy and colonoscopies as above. Gastroesophageal reflux. Hyperlipidemia. Hypertension. She has had a left knee replacement. Right shoulder surgery. The fractured left ankle. She denies any other surgeries. She describes a history of CHF. She denies history of OH or stroke. She does have COPD from previous smoking. She denies any diabetes. She has psoriasis. 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 She is single. Former smoker. She does not use any alcohol. FAMILY HISTORY: Noncontributory. REVIEW OF SYSTEMS: CONSTITUTIONAL: She has been feeling somewhat poorly in relation to her leg infection. CARDIAC: No chest pain. PULMONARY: No coughing or hemoptysis. GI: As above. URINARY: No dysuria. No hematuria. PHYSICAL EXAMINATION: GENERAL: The patient is a pleasant, alert, comfortable-appearing female. SKIN: Warm and dry. Anicteric sclerae. Moist mucous membranes. CARDIAC: Normal S1, S2. ABDOMEN: Soft, nondistended, nontender without mass. LABORATORY DATA: Hemoglobin on March 05 was down to 6.4. MCV 83. Platelets 254,000. Hemoglobin today is 7.8. She did receive a unit of blood on March 05. PT 11.2 with INR 1.0. Sodium 133, potassium 4.0, chloride 101, CO2 21, BUN 23, creatinine 1.1. Iron 11, iron saturation 6%. LFTs normal. Albumin 2.8. B12 878, folate 3.0. IMPRESSION: In regard to the patient's anemia, I advised her that this certainly does need a workup at some point, but I do not think it is urgent given its chronicity, her previous GI procedures, which were not particularly revealing, and her excellent clinical appearance. I do not think she is well enough to have a colonoscopy at this time since she is not particularly ambulatory due to the left leg infection. As such, I advised her the best to do an outpatient upper endoscopy and colonoscopy when she is up to it. However, I did advise her that while the likelihood of finding any significant pathology is low, it would still be important to do. As such, she will need to follow up in my office for that. In the meantime, I did advise that it would be important to continue her iron, start folic acid repletion, and remain on her PPI. She should have periodic CBCs as well. I have placed orders to check some stool hemoccults, start the folic acid repletion, and check laboratories for celiac disease as a cause of possible iron and folate deficiency with malabsorption. Again, I advised her that we could set up an upper endoscopy and colonoscopy as an outpatient. I did advise that she may need a small bowel video capsule study at some point as well if the workup remains negative in regard to the anemia and if the problem persists. She may also have some chronic component of her anemia in relation to this chronic infection that she has been having for quite some time now. I did review this in detail with the patient and she is comfortable with the plan. Thanks for the consultation. MD ABBIE Flowers/PING / [phone]
[2024-03-09] MEDS: Omeprazole 20 MG CAPSULE.DR PO (05:29)
[2024-03-09 06:24] LABS: MANUAL DIFF FLAG NO
[2024-03-09 06:29] LABS: Basophils Absolute Auto 0.1 X10*3/uL (0.0-0.2); Basophils Percent Auto 0.4 % (0-2); Eosinophils Absolute Auto 0.2 X10*3/uL (0.0-0.4); Eosinophils Percent Auto 1.6 % (0-4); Hemoglobin 7.3 g/dl (12.0-16.0); Imm Gran Abs Auto 0.42 X10*3/uL (0.00-0.03); Lymphocytes Absolute Auto 1.3 X10*3/uL (1.2-4.9); Lymphocytes Percent Auto 9.3 % (20-40); Mean Corpuscular HGB Conc 31.7 g/dl (31.0-35.0); Mean Corpuscular Volume 85.2 fL (80.0-98.0); Mean Platelet Volume 9.8 fL (9.4-12.3); Monocytes Absolute Auto 1.2 X10*3/uL (0.1-1.2); Monocytes Percent Auto 8.4 % (2-11); Neutrophils Absolute Auto 10.9 x10*3/uL (2.0-8.3); Neutrophils Percent Auto 77.3 % (45-73); Platelet Count 547 X10*3/uL (160-400); Red Cell Distribution Width 18.6 % (11.0-16.0); White Blood Count 14.1 X10*3/uL (4.8-10.8)
[2024-03-09 07:04] LABS: Alanine Aminotransferase 25 U/L (0-31); Albumin Level 2.6 g/dL (3.5-5.0); Alkaline Phosphatase 98 U/L (39-117); Anion Gap 14 (12-20); Aspartate Amino Transferase 48 U/L (5-31); Bilirubin Total 0.3 mg/dL (0.0-1.0); Blood Urea Nitrogen 24 mg/dL (9-16); Calcium 8.7 mg/dL (8.4-10.2); Carbon Dioxide 23 mmol/L (22-29); Chloride 100 mmol/L (96-108); Creatinine Clr Calc Pharmacy 44.9; Estimated Glomerular Filt Rate 40; Glucose Fasting 98 mg/dL (60-99); Potassium 4.1 mmol/L (3.3-5.1); Sodium 133 mmol/L (135-145); Total Protein 6.3 g/dL (6.5-8.0)
[2024-03-09] MEDS: Fluticasone/Vilanterol 100/25 BLST.W.DEV 1 PUFF INHALE (07:51)
[2024-03-09 09:11] LABS: Ferritin 171 ng/mL (10-250)
[2024-03-09] MEDS: carvediloL 12.5 MG TABLET 37.5 MG PO ×2 (09:11→20:00)
[2024-03-09] MEDS: diphenhydrAMINE HCL 25 MG CAPSULE PO (09:12)
[2024-03-09] MEDS: Gabapentin 100 MG CAPSULE PO ×3 (09:12→20:03)
[2024-03-09] MEDS: Ezetimibe 10 MG TABLET PO (09:12)
[2024-03-09] MEDS: Ferrous Sulfate 324 MG TABLET.DR PO (09:12)
[2024-03-09] MEDS: Cholecalciferol (Vitamin D3) 25 MCG TABLET PO (09:12)
[2024-03-09] MEDS: Atorvastatin Calcium 80 MG TABLET PO (09:12)
[2024-03-09] MEDS: Folic Acid 1 MG TABLET PO (09:12)
[2024-03-09] MEDS: Sertraline HCL 50 MG TABLET PO (09:12)
[2024-03-09] MEDS: 0.9 % Sodium Chloride Flush 3 ML SYRINGE IVFLUSH ×2 (09:14→15:00)
--- NOTE | 2024-03-09 09:35 | HO.WOUND ---
Wound Consult: Follow up 74yr old?female admitted to [facility] on 03/04/24 - See progress notes and H&P for detailed history.? Wound consult follow up for Left Leg Cellulitis.? Patient agreeable to assessment and photo documentation.? Per patient statement the leg feels improved and looks improved staff confirm overall appearance appears improved. Patient requests to be premedication prior to dressing change direct care nurse available to medicate will attempt dressing in change after med administration and time to work.
--- NOTE | 2024-03-09 11:34 | HO.WOUND ---
Wound Consult: Follow up 74yr old?female admitted to [facility] on 03/04/24 - See progress notes and H&P for detailed history.? Wound consult follow up for Left Leg Cellulitis.? Patient agreeable to assessment and photo documentation.?Since medicated and ok to have dressing change performed. See chart review for complex history. The patient reports the leg does appear improved in terms of erythema and pain. Left Heel Left Leg 03/05/24 Left Leg 03/09/24 Left Knee resolving -dry epidermal layer - no longer needs topical treatment. Left Leg posterior calf 03/05/24 Left Leg 03/09/24 Left leg Calf 03/09/24 -central fluctuance noted Etiology: ?Cellulitits Wound Bed: Left knee resolving - calf area concern for fluid collection central fluctance noted which was not present last assessment - once palpated the area expressed creamy purulence and significant pain noted Drainage / Odor: creamy purulent drainage noted Edges: ? irregular [place] wound: epidermal sloughing noted - ?red pink warm swollen, tender / painful to touch, psoriasis noted to both feet ankles Pain: pt reports pain Goals of Treatment: ? Elevate - Provider to continue to treat systemically and will consider Imaging and or surgery consult and topically witll adjust to durafiber AG for moisture management and gauze wrap Recommendations: 1. Turn and Reposition every 2 hours and as needed for patient comfort.? Use pillows or wedges to support off loading positions. 2. Off Load all bony prominences with use of pillows and heel boots if needed.? Apply Preventative foams where needed. ? 3. Monitor for incontinence and moisture control, use barrier creams when needed for prevention and treatment. 4. Provide adequate and supplemental nutrition.? 5. Order low air loss mattress. 6. Left Leg - Elevate lower legs off of surface of bed with use of pillows.? Cleanse with NS, Pat dry.? Apply vaseline to both legs, apply layer of Durafiber AG to open wound bed secure with ABD pad, gauze wrap and tape.? Change everyother day. Re-consult wound care Nurse for wound deterioration or wound changes.
--- NOTE | 2024-03-09 14:47 | HO.PM.IMPN ---
Subjective Subjective Date of Service: 03/09/24 Interval History: Feels less fatigued today. Pain control adequate Review of Systems Denies chest pain Denies shortness of breath Denies nausea vomiting diarrhea Denies fever chills Physical Exam Vital Signs: Vital Signs: Last Vital Signs Temp 97.9 F 03/09/24 13:29 Pulse 88 03/09/24 13:29 Resp 16 03/09/24 13:29 BP 104/55 L 03/09/24 13:29 Pulse Ox 99 03/09/24 13:13 O2 Del Method Room Air 03/09/24 13:13 BMI result Body Mass Index 38.3 Const: Other: Awake alert oriented x3 no acute distress Resp: Other: Clear to auscultation bilaterally no rales rhonchi or wheezes Cardio: Other: No S4; positive S1-S2; no S3 murmurs rubs or gallops GI: Other: Soft nontender nondistended normoactive bowel sounds Extrem: Other: Left lower extremity erythema above knee. Somewhat improved given initial markings Objective Data Active Medications Acetaminophen (Acetaminophen 325 Mg Tablet) 650 mg PO Q6H PRN PRN Reason: Pain, Mild (Pain Scale 1-3), fever or headache Last Admin: 03/09/24 01:37 Dose: 650 mg Documented By: JOSE Atorvastatin Calcium (Atorvastatin Calcium 80 Mg Tablet) 80 mg PO DAILY [facility] Last Admin: 03/09/24 09:12 Dose: 80 mg Documented By: DREW Calcium Carbonate (Calcium Carbonate 750 Mg Tab.Chew) 750 mg PO Q4H PRN PRN Reason: Heartburn Carvedilol (Carvedilol 12.5 Mg Tablet) 37.5 mg PO BID [facility]; Protocol Last Admin: 03/09/24 09:11 Dose: 37.5 mg Documented By: DREW Clonidine HCl (Clonidine Hcl 0.2 Mg Tablet) 0.2 mg PO BEDTIME [facility]; Protocol Last Admin: 03/08/24 20:01 Dose: 0.2 mg Documented By: JOSE Diphenhydramine HCl (Diphenhydramine Hcl 25 Mg Capsule) 25 mg PO DAILY [facility] Last Admin: 03/09/24 09:12 Dose: 25 mg Documented By: DREW Ezetimibe (Ezetimibe 10 Mg Tablet) 10 mg PO DAILY [facility] Last Admin: 03/09/24 09:12 Dose: 10 mg Documented By: DREW Ferrous Sulfate (Ferrous Sulfate 324 Mg Tablet.) 324 mg PO DAILY [facility] Last Admin: 03/09/24 09:12 Dose: 324 mg Documented By: DREW Fluticasone/Vilanterol (Fluticasone/Vilanterol 100/25 Blst.W.Dev) 1 puff INHALE RDAILY [facility] Last Admin: 03/09/24 07:51 Dose: 1 puff Documented By: MARITZA Folic Acid (Folic Acid 1 Mg Tablet) 1 mg PO DAILY [facility] Last Admin: 03/09/24 09:12 Dose: 1 mg Documented By: DREW Gabapentin (Gabapentin 100 Mg Capsule) 100 mg PO TID [facility] Last Admin: 03/09/24 09:12 Dose: 100 mg Documented By: DREW Vancomycin HCl 1,000 mg/ (Sodium Chloride) 270 mls @ 270 mls/hr IV Q24H [facility] Last Infusion: 03/08/24 22:57 Dose: Infused Documented By: JOSE Lorazepam (Lorazepam 0.5 Mg Tablet) 0.5 mg PO BEDTIME [facility] Last Admin: 03/08/24 21:52 Dose: 0.5 mg Documented By: JOSE Magnesium Hydroxide (Milk Of Magnesia 30 Ml Oral.Susp) 30 ml PO DAILY PRN PRN Reason: Constipation Melatonin (Melatonin 3 Mg Tablet) 6 mg PO BEDTIME PRN PRN Reason: Insomnia Omeprazole (Omeprazole 20 Mg Capsule.) 20 mg PO DAILY@0630 [facility] Last Admin: 03/09/24 05:29 Dose: 20 mg Documented By: JOSE Ondansetron HCl (Ondansetron Hcl 4 Mg/2 Ml Vial) 4 mg IVPUSH Q8H PRN PRN Reason: Nausea and Vomiting Oxycodone HCl (Oxycodone Hcl Immed Release 5 Mg Tablet) 5 mg PO Q4H PRN PRN Reason: Pain, Moderate(Pain Scale 4-6) Last Admin: 03/09/24 09:15 Dose: 5 mg Documented By: DREW Pharmacy Consult (Consult Rx Vancomycin Dosing) 1 each MISCELLANE DAILY PRN PRN Reason: Consult order Sertraline HCl (Sertraline Hcl 50 Mg Tablet) 50 mg PO DAILY [facility] Last Admin: 03/09/24 09:12 Dose: 50 mg Documented By: DREW Sodium Chloride (0.9 % Sodium Chloride Flush 3 Ml Syringe) 3 ml IVFLUSH QSHIFT [facility] Last Admin: 03/09/24 09:14 Dose: 3 ml Documented By: DREW Trazodone HCl (Trazodone Hcl 50 Mg Tablet) 50 mg PO BEDTIME [facility] Last Admin: 03/08/24 21:52 Dose: 50 mg Documented By: JOSE Vitamin D (Cholecalciferol (Vitamin D3) 25 Mcg Tablet) 25 mcg PO DAILY [facility] Last Admin: 03/09/24 09:12 Dose: 25 mcg Documented By: DREW Labs 03/09/24 05:30 03/09/24 05:30 Labs: Laboratory Results - last 24 hr 03/08/24 03/09/24 03/09/24 20:17 05:30 10:58 MCV 85.2 MCH 27.0 MCHC 31.7 RDW 18.6 H Plt Count 547 H MPV 9.8 Immature Gran % (Auto) 3.0 H Neut % (Auto) 77.3 H Lymph % (Auto) 9.3 L [place] % (Auto) 8.4 Eos % (Auto) 1.6 Baso % (Auto) 0.4 Lymph # (Auto) 1.3 [place] # (Auto) 1.2 Eos # (Auto) 0.2 Baso # (Auto) 0.1 Abs Immat Gran (auto) 0.42 H Absolute Neuts (auto) 10.9 H Absolute Nucleated RBC 0.000 Nucleated RBC % (auto) 0.0 Anion Gap 14 Estim Creat Clear Calc 44.9 Estimated GFR 40 Fasting Glucose 98 Calcium 8.7 Ferritin 171 Total Bilirubin 0.3 AST 48 H ALT 25 Alkaline Phosphatase 98 Total Protein 6.3 L Albumin 2.6 L Random Vancomycin 13.8 L Blood Type A Positive Antibody Screen NEGATIVE Crossmatch See Detail Microbiology Microbiology Results: Microbiology 03/04/24 10:55 Blood Culture - Final Blood - Venous No growth after 5 days. 03/04/24 10:32 Blood Culture - Final Blood - Venous No growth after 5 days. Assessment and Plan (1) Cellulitis of left leg: Status: Acute (2) MALLIKA (acute kidney injury): Status: Acute (3) Anemia: Status: Acute Plan 74-year-old female with pertinent history of congestive heart failure with preserved ejection fraction, CKD stage 3, hypertension, mood disorder, COPD not on home oxygen presents to the emergency department for evaluation of fevers and chills... Found to have recurrent left lower extremity cellulitis 1.Sepsis due to left leg cellulitis -sepsis resolved -continue vancomycin (5) -ID consult pending 2.Acute kidney injury -normalized with volume repletion -follow renals/divalents 3.Acute anemia -transfused 2 units of packed red cells with Lasix in between -follow daily CBC 4.Hypokalemia/hypomagnesemia -resolved secondary to volume 5.Hypertension -acceptable control off current therapies -resume when appropriate 6. HFpEF -stable and well compensated at this time Lovenox Full code Requires ongoing hospitalization for IV antibiotics to treat cellulitis and specialty consultation Quality Stroke Does the patient have a stroke diagnosis?: No VTE Prior VTE?: No VTE Risk Level:: Medical - moderate - high VTE Device Contraindication: Treatment Not Indicated VTE Drug Contraindication: N/A - Med Ordered
[2024-03-09] MEDS: Furosemide 20 MG/2 ML VIAL IVPUSH (16:50)
[2024-03-09] MEDS: Melatonin 3 MG TABLET 6 MG PO (20:00)
[2024-03-09] MEDS: traZODone HCL 50 MG TABLET PO (20:04)
[2024-03-09] MEDS: cloNIDine HCL 0.2 MG TABLET PO (20:04)
[2024-03-09] MEDS: LORazepam 0.5 MG TABLET PO (20:04)
[2024-03-09 23:09] LABS: OBS Int Ctl Valid YES; OBS1 NEGATIVE (NEGATIVE)
[2024-03-09] MEDS: vancomycin HCL 1,000 MG in 0.9 % Sodium Chloride 250 ML 270 MG IV (23:47)
[2024-03-10] VITALS (9 sets, daily range): BP systolic 123–149; BP diastolic 61–70; PULSE 63–71; RESP 18; TEMP 36.2–36.9; O2SAT 96–98
--- NOTE | 2024-03-10 00:14 | W.PM.IDCN ---
History of Present Illness Data of Consult Service Date: 03/09/24 Requesting physician: Siddharth Marcial Primary Care Provider: Billie Maguire MD HPI Reason for consult: left leg blisters,recurren She presents with left leg blisters and swelling for last week. She has swelling and has no injury She denies fever. Review of Systems Review of Systems: Yes all other systems are reviewed and are negative PMFSH Past Medical History Medical History Diverticulosis GERD (gastroesophageal reflux disease) Occult fracture Acute CHF Hepatic steatosis COPD (chronic obstructive pulmonary disease) Uncontrolled hypertension HTN (hypertension) (HFpEF) heart failure with preserved ejection fraction Other and unspecified hyperlipidemia Essential hypertension Inguinal hernia Sliding hiatal hernia COPD (chronic obstructive pulmonary disease) Asthma Gout Arthritis Hypercholesteremia Chronic kidney disease (CKD) stage G3a/A1, moderately decreased glomerular filtration rate (GFR) between 45-59 mL/min/1.73 square meter and albuminuria creatinine ratio less than 30 mg/g Wound cellulitis Family History Family History Father CHF (congestive heart failure) Mother CHF (congestive heart failure) Surgical History Surgical History Hx of tonsillectomy Hx of rotator cuff surgery History of total left knee replacement Social History Social History Household Members: Family Household Members Other:: mother Housing: House Do you presently have visiting nurse or other home services: No Alcohol intake: current Alcohol intake frequency: does not drink Alcohol type: wine Comment: pt rings appropriately Patient Tobacco Use Status: Former Tobacco user Second Hand Smoke Exposure: No Advance Directives Date on File: 12/04/20 service: No Current occupational status: employed 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, 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 Meds Allergies Allergy/AdvReac Type Severity Reaction Status Date / Time shrimp Allergy Severe Anaphylaxis Verified 03/04/24 09:10 Penicillins Allergy Unknown UNKNOWN Verified 03/04/24 09:10 levofloxacin [From Levaquin] Allergy Hypertensio Verified 03/04/24 09:10 n paroxetine [From Paxil] Allergy Unknown Verified 03/04/24 09:10 prochlorperazine Allergy Unknown Verified 03/04/24 09:10 [From Compazine] tripoly phosphate Allergy Anaphylaxis Uncoded 03/04/24 09:10 Active Medications: Current Medications Acetaminophen (Acetaminophen 325 Mg Tablet) 650 mg PO Q6H PRN PRN Reason: Pain, Mild (Pain Scale 1-3), fever or headache Last Admin: 03/09/24 20:02 Dose: 650 mg Atorvastatin Calcium (Atorvastatin Calcium 80 Mg Tablet) 80 mg PO DAILY [facility] Last Admin: 03/09/24 09:12 Dose: 80 mg Calcium Carbonate (Calcium Carbonate 750 Mg Tab.Chew) 750 mg PO Q4H PRN PRN Reason: Heartburn Carvedilol (Carvedilol 12.5 Mg Tablet) 37.5 mg PO BID [facility]; Protocol Last Admin: 03/09/24 20:00 Dose: 37.5 mg Clonidine HCl (Clonidine Hcl 0.2 Mg Tablet) 0.2 mg PO BEDTIME [facility]; Protocol Last Admin: 03/09/24 20:04 Dose: 0.2 mg Diphenhydramine HCl (Diphenhydramine Hcl 25 Mg Capsule) 25 mg PO DAILY [facility] Last Admin: 03/09/24 09:12 Dose: 25 mg Ezetimibe (Ezetimibe 10 Mg Tablet) 10 mg PO DAILY [facility] Last Admin: 03/09/24 09:12 Dose: 10 mg Ferrous Sulfate (Ferrous Sulfate 324 Mg Tablet.Dr) 324 mg PO DAILY [facility] Last Admin: 03/09/24 09:12 Dose: 324 mg Fluticasone/Vilanterol (Fluticasone/Vilanterol 100/25 Blst.W.Dev) 1 puff INHALE RDAILY [facility] Last Admin: 03/09/24 07:51 Dose: 1 puff Folic Acid (Folic Acid 1 Mg Tablet) 1 mg PO DAILY [facility] Last Admin: 03/09/24 09:12 Dose: 1 mg Gabapentin (Gabapentin 100 Mg Capsule) 100 mg PO TID [facility] Last Admin: 03/09/24 20:03 Dose: 100 mg Vancomycin HCl 1,000 mg/ (Sodium Chloride) 270 mls @ 270 mls/hr IV Q24H [facility] Magnesium Hydroxide (Milk Of Magnesia 30 Ml Oral.Susp) 30 ml PO DAILY PRN PRN Reason: Constipation Melatonin (Melatonin 3 Mg Tablet) 6 mg PO BEDTIME PRN PRN Reason: Insomnia Last Admin: 03/09/24 20:00 Dose: 6 mg Omeprazole (Omeprazole 20 Mg Capsule.Dr) 20 mg PO DAILY@0630 [facility] Last Admin: 03/09/24 05:29 Dose: 20 mg Ondansetron HCl (Ondansetron Hcl 4 Mg/2 Ml Vial) 4 mg IVPUSH Q8H PRN PRN Reason: Nausea and Vomiting Oxycodone HCl (Oxycodone Hcl Immed Release 5 Mg Tablet) 5 mg PO Q4H PRN PRN Reason: Pain, Moderate(Pain Scale 4-6) Last Admin: 03/09/24 20:06 Dose: 5 mg Pharmacy Consult (Consult Rx Vancomycin Dosing) 1 each MISCELLANE DAILY PRN PRN Reason: Consult order Sertraline HCl (Sertraline Hcl 50 Mg Tablet) 50 mg PO DAILY [facility] Last Admin: 03/09/24 09:12 Dose: 50 mg Sodium Chloride (0.9 % Sodium Chloride Flush 3 Ml Syringe) 3 ml IVFLUSH QSHIFT [facility] Last Admin: 03/09/24 15:00 Dose: 3 ml Trazodone HCl (Trazodone Hcl 50 Mg Tablet) 50 mg PO BEDTIME [facility] Last Admin: 03/09/24 20:04 Dose: 50 mg Vitamin D (Cholecalciferol (Vitamin D3) 25 Mcg Tablet) 25 mcg PO DAILY [facility] Last Admin: 03/09/24 09:12 Dose: 25 mcg Home Medications ?Medication ?Instructions ?Recorded ?Confirmed ?Last Taken ?Type pantoprazole 40 mg tablet,delayed 40 mg PO DAILY 11/17/20 03/04/24 03/03/24 History release clonidine HCl 0.1 mg tablet 2 tab PO BEDTIME 05/08/22 03/04/24 03/03/24 History albuterol sulfate 90 mcg/actuation 2 puff inhalation Q6H PRN 08/09/22 03/04/24 Unknown History aerosol inhaler Respiratory Distress diphenhydramine HCl 25 mg capsule 25 mg PO DAILY 08/09/22 03/04/24 03/03/24 History (Benadryl) furosemide 20 mg tablet 20 mg PO MOWEFR@0900 08/09/22 03/04/24 03/03/24 History sertraline 50 mg tablet 50 mg PO DAILY 12/26/22 03/04/24 03/03/24 History gabapentin 100 mg capsule 100 mg PO TID 08/29/23 03/04/24 03/03/24 History carvedilol 25 mg tablet 37.5 mg PO BID 02/04/24 03/04/24 03/03/24 History acetaminophen 325 mg tablet 975 mg PO Q6H PRN Pain, Severe 03/04/24 03/04/24 Unknown History (Pain Scale 7-10) cholecalciferol (vitamin D3) 25 25 mcg PO DAILY 03/04/24 03/04/24 03/03/24 History mcg (1,000 unit) tablet (Vitamin D3) furosemide 20 mg tablet 40 mg PO SUTUTHSA@0900 03/04/24 03/04/24 03/03/24 History Physical Exam Vital Signs: Vital Signs: Last Vital Signs Temp 97.2 F 03/10/24 00:01 Pulse 71 03/10/24 00:01 Resp 18 03/10/24 00:01 BP 149/65 H 03/10/24 00:01 Pulse Ox 99 03/09/24 19:10 O2 Del Method Room Air 03/09/24 23:55 BMI result Body Mass Index 38.3 Const: General: cooperative HEENT: Head: Yes normal to inspection Face and sinus: Yes normal facial exam Mouth: Normal oral and palatal mucosa present Teeth and gingiva: dentition normal Eyes: General: appearance normal, both eyes and all related structures Pupils: Equal, round and reactive pupils present Resp: Effort & Inspection: normal respiratory effort Cardio: Rate: regular rate Rhythm: regular rhythm GI: Palpation (GI): Soft to palpation and nontender : General: Yes no CVA tenderness Back/Spine/Pelvis: Back: no CVA tenderness Skin: General skin exam: no rashes or lesions noted Neuro: General: moves all extremities Cranial nerves: Yes Equal, round and reactive pupils present Extrem: Other: reddened left leg ,wrapped,blisters. Psych: Appearance: grossly normal Results Labs 03/10/24 05:48 03/10/24 05:48 Labs: Short CBC 03/09/24 Range/Units 05:30 WBC 14.1 H (4.8-10.8) X10*3/uL Hgb 7.3 L (12.0-16.0) g/dl Hct 23.0 L (37.0-47.0) % Plt Count 547 H (160-400) X10*3/uL BMP 03/09/24 05:30 Sodium 133 L Potassium 4.1 Chloride 100 Carbon Dioxide 23 BUN 24 H Creatinine 1.31 Calcium 8.7 Liver Function 03/09/24 Range/Units 05:30 Total Bilirubin 0.3 (0.0-1.0) mg/dL AST 48 H (5-31) U/L ALT 25 (0-31) U/L Alkaline Phosphatase 98 (39-117) U/L Albumin 2.6 L (3.5-5.0) g/dL Microbiology Microbiology Results: Microbiology 03/08/24 16:54 Blood - Venous Blood Culture - Preliminary No growth after 24 hours. 03/08/24 16:54 Blood - Venous Blood Culture - Preliminary No growth after 24 hours. 03/04/24 10:55 Blood - Venous Blood Culture - Final No growth after 5 days. 03/04/24 10:32 Blood - Venous Blood Culture - Final No growth after 5 days. Assessment and Plan (1) Cellulitis of left leg: Status: Acute She has recurrent cellulitis,left leg She has no inciting event. PCN can be useful for prophylaxis,but patient has allergy Plan Elevate. Await cultures Can switch Vancomycin to Doxycycline 10d No prophylaxis useful.
[2024-03-10] MEDS: 0.9 % Sodium Chloride Flush 3 ML SYRINGE IVFLUSH ×3 (01:20→15:43)
[2024-03-10] MEDS: Omeprazole 20 MG CAPSULE.DR PO (05:39)
[2024-03-10 06:30] LABS: MANUAL DIFF FLAG NO
[2024-03-10 06:43] LABS: Basophils Absolute Auto 0.1 X10*3/uL (0.0-0.2); Basophils Percent Auto 0.5 % (0-2); Eosinophils Absolute Auto 0.3 X10*3/uL (0.0-0.4); Eosinophils Percent Auto 2.8 % (0-4); Hematocrit 34.1 % (37.0-47.0); Imm Gran Abs Auto 0.15 X10*3/uL (0.00-0.03); Imm Gran Pct Auto 1.6 % (0.0-0.4); Lymphocytes Absolute Auto 1.6 X10*3/uL (1.2-4.9); Lymphocytes Percent Auto 17.6 % (20-40); Mean Corpuscular HGB Conc 32.3 g/dl (31.0-35.0); Mean Corpuscular Hemoglobin 27.4 pg (27.0-33.0); Mean Corpuscular Volume 84.8 fL (80.0-98.0); Mean Platelet Volume 9.7 fL (9.4-12.3); Monocytes Absolute Auto 0.9 X10*3/uL (0.1-1.2); Monocytes Percent Auto 9.3 % (2-11); Neutrophils Absolute Auto 6.2 x10*3/uL (2.0-8.3); Neutrophils Percent Auto 68.2 % (45-73); Platelet Count 557 X10*3/uL (160-400); Red Blood Count 4.02 X10*6/uL (4.20-5.50); Red Cell Distribution Width 16.9 % (11.0-16.0); White Blood Count 9.2 X10*3/uL (4.8-10.8)
[2024-03-10 07:03] LABS: Alanine Aminotransferase 41 U/L (0-31); Albumin Level 2.8 g/dL (3.5-5.0); Alkaline Phosphatase 108 U/L (39-117); Anion Gap 16 (12-20); Aspartate Amino Transferase 74 U/L (5-31); Bilirubin Total 0.4 mg/dL (0.0-1.0); Blood Urea Nitrogen 25 mg/dL (9-16); Calcium 9.1 mg/dL (8.4-10.2); Carbon Dioxide 23 mmol/L (22-29); Chloride 100 mmol/L (96-108); Creatinine Clr Calc Pharmacy 46.3; Estimated Glomerular Filt Rate 41; Glucose Fasting 100 mg/dL (60-99); Potassium 4.1 mmol/L (3.3-5.1); Sodium 135 mmol/L (135-145); Total Protein 7.1 g/dL (6.5-8.0)
[2024-03-10] MEDS: Fluticasone/Vilanterol 100/25 BLST.W.DEV 1 PUFF INHALE (07:56)
[2024-03-10] MEDS: carvediloL 12.5 MG TABLET 37.5 MG PO ×2 (08:35→20:15)
[2024-03-10] MEDS: Gabapentin 100 MG CAPSULE PO ×3 (08:36→20:14)
[2024-03-10] MEDS: Ferrous Sulfate 324 MG TABLET.DR PO (08:36)
[2024-03-10] MEDS: Cholecalciferol (Vitamin D3) 25 MCG TABLET PO (08:36)
[2024-03-10] MEDS: diphenhydrAMINE HCL 25 MG CAPSULE PO (08:36)
[2024-03-10] MEDS: Folic Acid 1 MG TABLET PO (08:36)
[2024-03-10] MEDS: Sertraline HCL 50 MG TABLET PO (08:36)
[2024-03-10] MEDS: Ezetimibe 10 MG TABLET PO (08:36)
[2024-03-10] MEDS: Atorvastatin Calcium 80 MG TABLET PO (08:36)
--- NOTE | 2024-03-10 12:27 | HO.PM.IMPN ---
Subjective Subjective Date of Service: 03/10/24 Interval History: Continues to improve. Feels much better after transfusion Review of Systems Denies chest pain Denies shortness of breath Denies nausea vomiting diarrhea Denies fever chills Physical Exam Vital Signs: Vital Signs: Last Vital Signs Temp 98.0 F 03/10/24 07:43 Pulse 66 03/10/24 08:35 Resp 18 03/10/24 07:57 BP 145/70 H 03/10/24 08:35 Pulse Ox 97 03/10/24 07:43 O2 Del Method Room Air 03/10/24 07:43 BMI result Body Mass Index 38.3 Const: Other: Awake alert oriented x3 no acute distress Resp: Other: Clear to auscultation bilaterally no rales rhonchi or wheezes Cardio: Other: No S4; positive S1-S2; no S3 murmurs rubs or gallops GI: Other: Soft nontender nondistended normoactive bowel sounds Extrem: Other: Left lower extremity erythema above knee. Somewhat improved given initial markings Objective Data Active Medications Acetaminophen (Acetaminophen 325 Mg Tablet) 650 mg PO Q6H PRN PRN Reason: Pain, Mild (Pain Scale 1-3), fever or headache Last Admin: 03/09/24 20:02 Dose: 650 mg Documented By: ELIDA Atorvastatin Calcium (Atorvastatin Calcium 80 Mg Tablet) 80 mg PO DAILY [facility] Last Admin: 03/10/24 08:36 Dose: 80 mg Documented By: NITHYA Calcium Carbonate (Calcium Carbonate 750 Mg Tab.Chew) 750 mg PO Q4H PRN PRN Reason: Heartburn Carvedilol (Carvedilol 12.5 Mg Tablet) 37.5 mg PO BID [facility]; Protocol Last Admin: 03/10/24 08:35 Dose: 37.5 mg Documented By: NITHYA Clonidine HCl (Clonidine Hcl 0.2 Mg Tablet) 0.2 mg PO BEDTIME [facility]; Protocol Last Admin: 03/09/24 20:04 Dose: 0.2 mg Documented By: ELIDA Diphenhydramine HCl (Diphenhydramine Hcl 25 Mg Capsule) 25 mg PO DAILY [facility] Last Admin: 03/10/24 08:36 Dose: 25 mg Documented By: NITHYA Ezetimibe (Ezetimibe 10 Mg Tablet) 10 mg PO DAILY [facility] Last Admin: 03/10/24 08:36 Dose: 10 mg Documented By: NITHYA Ferrous Sulfate (Ferrous Sulfate 324 Mg Tablet.) 324 mg PO DAILY [facility] Last Admin: 03/10/24 08:36 Dose: 324 mg Documented By: NITHYA Fluticasone/Vilanterol (Fluticasone/Vilanterol 100/25 Blst.W.Dev) 1 puff INHALE RDAILY [facility] Last Admin: 03/10/24 07:56 Dose: 1 puff Documented By: CLARISSE Folic Acid (Folic Acid 1 Mg Tablet) 1 mg PO DAILY [facility] Last Admin: 03/10/24 08:36 Dose: 1 mg Documented By: NITHYA Gabapentin (Gabapentin 100 Mg Capsule) 100 mg PO TID [facility] Last Admin: 03/10/24 08:36 Dose: 100 mg Documented By: NITHYA Vancomycin HCl 1,000 mg/ (Sodium Chloride) 270 mls @ 270 mls/hr IV Q24H [facility] Last Infusion: 03/10/24 01:30 Dose: Infused Documented By: ELIDA Magnesium Hydroxide (Milk Of Magnesia 30 Ml Oral.Susp) 30 ml PO DAILY PRN PRN Reason: Constipation Melatonin (Melatonin 3 Mg Tablet) 6 mg PO BEDTIME PRN PRN Reason: Insomnia Last Admin: 03/09/24 20:00 Dose: 6 mg Documented By: ELIDA Omeprazole (Omeprazole 20 Mg Capsule.) 20 mg PO DAILY@0630 [facility] Last Admin: 03/10/24 05:39 Dose: 20 mg Documented By: ELIDA Ondansetron HCl (Ondansetron Hcl 4 Mg/2 Ml Vial) 4 mg IVPUSH Q8H PRN PRN Reason: Nausea and Vomiting Oxycodone HCl (Oxycodone Hcl Immed Release 5 Mg Tablet) 5 mg PO Q4H PRN PRN Reason: Pain, Moderate(Pain Scale 4-6) Last Admin: 03/09/24 20:06 Dose: 5 mg Documented By: ELIDA Pharmacy Consult (Consult Rx Vancomycin Dosing) 1 each MISCELLANE DAILY PRN PRN Reason: Consult order Sertraline HCl (Sertraline Hcl 50 Mg Tablet) 50 mg PO DAILY [facility] Last Admin: 03/10/24 08:36 Dose: 50 mg Documented By: NITHYA Sodium Chloride (0.9 % Sodium Chloride Flush 3 Ml Syringe) 3 ml IVFLUSH QSHIFT [facility] Last Admin: 03/10/24 08:35 Dose: 3 ml Documented By: NITHYA Trazodone HCl (Trazodone Hcl 50 Mg Tablet) 50 mg PO BEDTIME [facility] Last Admin: 03/09/24 20:04 Dose: 50 mg Documented By: ELIDA Vitamin D (Cholecalciferol (Vitamin D3) 25 Mcg Tablet) 25 mcg PO DAILY [facility] Last Admin: 03/10/24 08:36 Dose: 25 mcg Documented By: NITHYA Labs 03/10/24 05:48 03/10/24 05:48 Labs: Laboratory Results - last 24 hr 03/09/24 03/09/24 03/10/24 10:58 22:46 05:48 MCV 84.8 MCH 27.4 MCHC 32.3 RDW 16.9 H Plt Count 557 H MPV 9.7 Immature Gran % (Auto) 1.6 H Neut % (Auto) 68.2 Lymph % (Auto) 17.6 L [place] % (Auto) 9.3 Eos % (Auto) 2.8 Baso % (Auto) 0.5 Lymph # (Auto) 1.6 [place] # (Auto) 0.9 Eos # (Auto) 0.3 Baso # (Auto) 0.1 Abs Immat Gran (auto) 0.15 H Absolute Neuts (auto) 6.2 Absolute Nucleated RBC 0.000 Nucleated RBC % (auto) 0.0 Anion Gap 16 Estim Creat Clear Calc 46.3 Estimated GFR 41 Fasting Glucose 100 H Calcium 9.1 Total Bilirubin 0.4 AST 74 H ALT 41 H Alkaline Phosphatase 108 Total Protein 7.1 Albumin 2.8 L Stool Occult Blood NEGATIVE Blood Type A Positive Antibody Screen NEGATIVE Crossmatch See Detail Microbiology Microbiology Results: Microbiology 03/08/24 16:54 Blood Culture - Preliminary Blood - Venous No growth after 24 hours. 03/08/24 16:54 Blood Culture - Preliminary Blood - Venous No growth after 24 hours. 03/04/24 10:55 Blood Culture - Final Blood - Venous No growth after 5 days. 03/04/24 10:32 Blood Culture - Final Blood - Venous No growth after 5 days. Assessment and Plan (1) Cellulitis of left leg: Status: Acute Plan 74-year-old female with pertinent history of congestive heart failure with preserved ejection fraction, CKD stage 3, hypertension, mood disorder, COPD not on home oxygen presents to the emergency department for evaluation of fevers and chills... Found to have recurrent left lower extremity cellulitis 1.Sepsis due to left leg cellulitis -sepsis resolved -continue vancomycin (5) -ID consult pending 2.Acute kidney injury -normalized with volume repletion -follow renals/divalents 3.Acute anemia -transfused 2 units of packed red cells with Lasix in between -follow daily CBC 4.Hypokalemia/hypomagnesemia -resolved secondary to volume 5.Hypertension -acceptable control off current therapies -resume when appropriate 6. HFpEF -stable and well compensated at this time Lovenox Full code Requires ongoing hospitalization for IV antibiotics to treat cellulitis and specialty consultation Quality Stroke Does the patient have a stroke diagnosis?: No VTE Prior VTE?: No VTE Risk Level:: Medical - moderate - high VTE Device Contraindication: Treatment Not Indicated VTE Drug Contraindication: N/A - Med Ordered
[2024-03-10] MEDS: Acetaminophen 325 MG TABLET 650 MG PO ×2 (12:44→20:48)
[2024-03-10] MEDS: oxyCODONE HCl Immed Release 5 MG TABLET PO ×2 (12:45→20:49)
--- NOTE | 2024-03-10 14:36 | MHC.CM.PN ---
PT recommending STR. Patient is agreeable. [facility] is [facility] choice, as her mother will be transferred there today. No other preferences. Referrals in place. CM will continue to follow.
--- NOTE | 2024-03-10 15:31 | P.CDIM_ITS ---
PROVIDER RESPONSE TEXT: To clarify, the appropriate diagnosis supported by the clinical indicators: Obesity QUERY TEXT: PHYSICIAN'S DOCUMENTATION REQUEST Date of Query: 03/10/2024 09:10 AM EDT Patient Name: Binta Vidal Admit Date: 03/04/2024 Dear Siddharth Marcial DO, A review of the medical record indicates additional documentation may be needed. Please review below and update the documentation accordingly. Clinical Indicators: Height: 5ft 4in Weight: 101.2kg BMI: 38.2 Other Clinical Notes Supporting Significance of the BMI: Nursing notes Height and Weight: Obese class II If possible, please provide an associated diagnosis related to the abnormal BMI, such as: Obesity Obesity Due to other cause Specify the other cause Other (explain) Clinically unable to determine (explain) Thank you, Jeannine Colby, CCS, CDIS Use of terms such as suspected, likely, concern for, or probable (associated with a specific diagnosi s that is being evaluated, monitored, or treated as if it exists) are acceptable and can be coded in the inpatient se tting, when documented at the time of discharge. Please use your independent medical judgment in providing your response. THIS QUERY IS PART OF THE PERMANENT MEDICAL RECORD
[2024-03-10] MEDS: traZODone HCL 50 MG TABLET PO (20:14)
[2024-03-10] MEDS: cloNIDine HCL 0.2 MG TABLET PO (20:15)
[2024-03-10 21:14] LABS: Gliadin Deamidated IgA Ab <1.0 U/mL; Gliadin Deamidated IgG Ab <1.0 U/mL; Transglutaminase Ab IgG <1.0 U/mL; Transglutaminase IgA <1.0 U/mL
--- NOTE | 2024-03-10 22:39 | HE.PHANOTE ---
VANCO DOSE ADJUSTMENT. BASED ON TROUGH OF 17.0 DOSE CONTINUED AT 1000 Q 24. NEXT TROUGH 03/11 @ 2100
[2024-03-10] MEDS: vancomycin HCL 1,000 MG in 0.9 % Sodium Chloride 250 ML 270 MG IV (22:53)
[2024-03-11] VITALS (7 sets, daily range): BP systolic 117–168; BP diastolic 57–77; PULSE 63–70; RESP 16–20; TEMP 36.3–36.8; O2SAT 94–98
[2024-03-11] MEDS: Acetaminophen 325 MG TABLET 650 MG PO ×2 (03:44→15:51)
[2024-03-11] MEDS: oxyCODONE HCl Immed Release 5 MG TABLET PO ×3 (03:45→18:13)
[2024-03-11 05:55] LABS: MANUAL DIFF FLAG NO
[2024-03-11] MEDS: Omeprazole 20 MG CAPSULE.DR PO (06:03)
[2024-03-11 06:09] LABS: Basophils Percent Auto 0.4 % (0-2); Eosinophils Absolute Auto 0.2 X10*3/uL (0.0-0.4); Eosinophils Percent Auto 3.1 % (0-4); Hematocrit 32.3 % (37.0-47.0); Hemoglobin 10.3 g/dl (12.0-16.0); Imm Gran Abs Auto 0.07 X10*3/uL (0.00-0.03); Imm Gran Pct Auto 0.9 % (0.0-0.4); Lymphocytes Absolute Auto 1.8 X10*3/uL (1.2-4.9); Lymphocytes Percent Auto 23.8 % (20-40); Mean Corpuscular HGB Conc 31.9 g/dl (31.0-35.0); Mean Corpuscular Hemoglobin 27.1 pg (27.0-33.0); Mean Platelet Volume 9.6 fL (9.4-12.3); Monocytes Absolute Auto 0.8 X10*3/uL (0.1-1.2); Monocytes Percent Auto 10.5 % (2-11); Neutrophils Absolute Auto 4.6 x10*3/uL (2.0-8.3); Neutrophils Percent Auto 61.3 % (45-73); Platelet Count 568 X10*3/uL (160-400); Red Cell Distribution Width 17.1 % (11.0-16.0); White Blood Count 7.4 X10*3/uL (4.8-10.8)
[2024-03-11 06:16] LABS: Estimated Glomerular Filt Rate 44
[2024-03-11] MEDS: Sertraline HCL 50 MG TABLET PO (08:28)
[2024-03-11] MEDS: Ferrous Sulfate 324 MG TABLET.DR PO (08:28)
[2024-03-11] MEDS: carvediloL 12.5 MG TABLET 37.5 MG PO ×2 (08:28→20:27)
[2024-03-11] MEDS: Cholecalciferol (Vitamin D3) 25 MCG TABLET PO (08:28)
[2024-03-11] MEDS: Atorvastatin Calcium 80 MG TABLET PO (08:28)
[2024-03-11] MEDS: diphenhydrAMINE HCL 25 MG CAPSULE PO (08:28)
[2024-03-11] MEDS: Gabapentin 100 MG CAPSULE PO ×3 (08:29→20:27)
[2024-03-11] MEDS: Folic Acid 1 MG TABLET PO (08:29)
[2024-03-11] MEDS: Ezetimibe 10 MG TABLET PO (08:29)
[2024-03-11] MEDS: 0.9 % Sodium Chloride Flush 3 ML SYRINGE IVFLUSH ×3 (08:29→23:31)
[2024-03-11] MEDS: Fluticasone/Vilanterol 100/25 BLST.W.DEV 1 PUFF INHALE (08:47)
--- NOTE | 2024-03-11 18:02 | HO.PM.IMPN ---
Subjective Subjective Date of Service: 03/11/24 Interval History: Seen and examined this morning Follow-up for cellulitis no overnight events, no specific complaints Review of Systems Review of Systems: Yes all other systems are reviewed and are negative Constitutional Constitutional: Denies chills and Denies fever(s) Cardiovascular Cardiovascular: Denies chest pain, Denies palpitations and Denies dyspnea Respiratory Respiratory: Denies cough and Denies dyspnea Gastrointestinal Gastrointestinal: Denies abdominal pain Endocrine Endocrine: Denies palpitations Physical Exam Vital Signs: Vital Signs: Last Vital Signs Temp 97.3 F 03/11/24 15:54 Pulse 68 03/11/24 15:54 Resp 20 03/11/24 15:54 BP 132/67 03/11/24 15:54 Pulse Ox 98 03/11/24 15:54 O2 Del Method Room Air 03/11/24 15:54 BMI result Body Mass Index 38.3 Const: General: cooperative, comfortable, no acute distress, alert and awake Orientation/consciousness: patient oriented x3 HEENT: Head: Yes normocephalic and Yes atraumatic Eyes: Sclerae: sclerae normal Chest: Chest palpation & inspection: normal inspection of the chest Resp: Effort & Inspection: normal respiratory effort and no respiratory distress Auscultation: clear to auscultation bilaterally Cardio: Rate: regular rate Rhythm: regular rhythm GI: Palpation (GI): Soft to palpation and nontender Skin: Other: left leg with improving erythema, shallow ulceration on posterior calf Neuro: General: patient oriented x3 Cranial nerves: Yes CN's II-XII intact bilaterally and Yes Bilaterally intact EOM present Extrem: General: Yes normal to inspection Objective Data Active Medications Acetaminophen (Acetaminophen 325 Mg Tablet) 650 mg PO Q6H PRN PRN Reason: Pain, Mild (Pain Scale 1-3), fever or headache Last Admin: 03/11/24 15:51 Dose: 650 mg Documented By: CÉSAR Atorvastatin Calcium (Atorvastatin Calcium 80 Mg Tablet) 80 mg PO DAILY [facility] Last Admin: 03/11/24 08:28 Dose: 80 mg Documented By: CÉSAR Calcium Carbonate (Calcium Carbonate 750 Mg Tab.Chew) 750 mg PO Q4H PRN PRN Reason: Heartburn Carvedilol (Carvedilol 12.5 Mg Tablet) 37.5 mg PO BID [facility]; Protocol Last Admin: 03/11/24 08:28 Dose: 37.5 mg Documented By: CÉSAR Clonidine HCl (Clonidine Hcl 0.2 Mg Tablet) 0.2 mg PO BEDTIME [facility]; Protocol Last Admin: 03/10/24 20:15 Dose: 0.2 mg Documented By: MARGARITA Diphenhydramine HCl (Diphenhydramine Hcl 25 Mg Capsule) 25 mg PO DAILY [facility] Last Admin: 03/11/24 08:28 Dose: 25 mg Documented By: CÉSAR Ezetimibe (Ezetimibe 10 Mg Tablet) 10 mg PO DAILY [facility] Last Admin: 03/11/24 08:29 Dose: 10 mg Documented By: CÉSAR Ferrous Sulfate (Ferrous Sulfate 324 Mg Tablet.) 324 mg PO DAILY [facility] Last Admin: 03/11/24 08:28 Dose: 324 mg Documented By: CÉSAR Fluticasone/Vilanterol (Fluticasone/Vilanterol 100/25 Blst.W.Dev) 1 puff INHALE RDAILY [facility] Last Admin: 03/11/24 08:47 Dose: 1 puff Documented By: NAA Folic Acid (Folic Acid 1 Mg Tablet) 1 mg PO DAILY [facility] Last Admin: 03/11/24 08:29 Dose: 1 mg Documented By: CÉSAR Gabapentin (Gabapentin 100 Mg Capsule) 100 mg PO TID [facility] Last Admin: 03/11/24 15:51 Dose: 100 mg Documented By: CÉSAR Vancomycin HCl 1,000 mg/ (Sodium Chloride) 270 mls @ 270 mls/hr IV Q24H [facility] Last Infusion: 03/11/24 00:28 Dose: Infused Documented By: RADHA Magnesium Hydroxide (Milk Of Magnesia 30 Ml Oral.Susp) 30 ml PO DAILY PRN PRN Reason: Constipation Melatonin (Melatonin 3 Mg Tablet) 6 mg PO BEDTIME PRN PRN Reason: Insomnia Last Admin: 03/09/24 20:00 Dose: 6 mg Documented By: ELIDA Omeprazole (Omeprazole 20 Mg Capsule.) 20 mg PO DAILY@0630 [facility] Last Admin: 03/11/24 06:03 Dose: 20 mg Documented By: RADHA Ondansetron HCl (Ondansetron Hcl 4 Mg/2 Ml Vial) 4 mg IVPUSH Q8H PRN PRN Reason: Nausea and Vomiting Pharmacy Consult (Consult Rx Vancomycin Dosing) 1 each MISCELLANE DAILY PRN PRN Reason: Consult order Sertraline HCl (Sertraline Hcl 50 Mg Tablet) 50 mg PO DAILY [facility] Last Admin: 03/11/24 08:28 Dose: 50 mg Documented By: CÉSAR Sodium Chloride (0.9 % Sodium Chloride Flush 3 Ml Syringe) 3 ml IVFLUSH QSHIFT [facility] Last Admin: 03/11/24 15:54 Dose: 3 ml Documented By: CÉSAR Trazodone HCl (Trazodone Hcl 50 Mg Tablet) 50 mg PO BEDTIME [facility] Last Admin: 03/10/24 20:14 Dose: 50 mg Documented By: MARGARITA Vitamin D (Cholecalciferol (Vitamin D3) 25 Mcg Tablet) 25 mcg PO DAILY [facility] Last Admin: 03/11/24 08:28 Dose: 25 mcg Documented By: CÉSAR Labs 03/11/24 05:04 03/11/24 05:04 Labs: Laboratory Results - last 24 hr 03/09/24 03/10/24 03/11/24 05:30 21:14 05:04 MCV 85.0 MCH 27.1 MCHC 31.9 RDW 17.1 H Plt Count 568 H MPV 9.6 Immature Gran % (Auto) 0.9 H Neut % (Auto) 61.3 Lymph % (Auto) 23.8 [place] % (Auto) 10.5 Eos % (Auto) 3.1 Baso % (Auto) 0.4 Lymph # (Auto) 1.8 [place] # (Auto) 0.8 Eos # (Auto) 0.2 Baso # (Auto) 0.0 Abs Immat Gran (auto) 0.07 H Absolute Neuts (auto) 4.6 Absolute Nucleated RBC 0.000 Nucleated RBC % (auto) 0.0 Estim Creat Clear Calc 49.0 Estimated GFR 44 Random Vancomycin 17.0 Tiss Transglutamin IgG <1.0 Tiss Transglutamin IgA <1.0 Anti-Gliadin IgG Ab <1.0 Gliadin (Deamidat) IgA <1.0 Microbiology Microbiology Results: Microbiology 03/08/24 16:54 Blood Culture - Preliminary Blood - Venous No growth after 48 hours. 03/08/24 16:54 Blood Culture - Preliminary Blood - Venous No growth after 48 hours. Assessment and Plan (1) Cellulitis of left leg: Status: Acute Plan 74-year-old female with pertinent history of congestive heart failure with preserved ejection fraction, CKD stage 3, hypertension, mood disorder, COPD not on home oxygen presents to the emergency department for evaluation of fevers and chills... Found to have recurrent left lower extremity cellulitis Sepsis due to left leg cellulitis sepsis resolved continue vancomycin, change to doxycycline up discharge, plan total 10 days seen by ID consult Acute kidney injury normalized with volume repletion follow renals/divalents Acute anemia transfused 2 units of packed red cells with improvement in H/H due to iron deficiency and folate deficiency Seen by GI - recommend outpatient upper endoscopy and colonoscopy Continue iron and folic acid supplementation follow daily CBC Hypokalemia/hypomagnesemia resolved secondary to volume Hypertension acceptable control off current therapies resume when appropriate HFpEF stable and well compensated at this time mild elevation in LFTs outaptient follow up Lovenox Full code Requires ongoing hospitalization for IV antibiotics to treat cellulitis and specialty consultation dispo - str pending insurance authorization Quality Stroke Does the patient have a stroke diagnosis?: No VTE Prior VTE?: No VTE Risk Level:: Medical - moderate - high VTE Device Contraindication: Treatment Not Indicated VTE Drug Contraindication: N/A - Med Ordered
[2024-03-11] MEDS: traZODone HCL 50 MG TABLET PO (20:27)
[2024-03-11] MEDS: cloNIDine HCL 0.2 MG TABLET PO (20:29)
[2024-03-11 22:32] LABS: Vancomycin Random 18.8 mcg/mL (15-20)
--- NOTE | 2024-03-11 22:45 | HE.PHANOTE ---
RE: VANCO DOSING Trough came back as 18.8. Dose is decreased to 750 mg q24h, starting @2300 03/11/14. Next trough is scheduled for 03/12/24 @2100.
[2024-03-11] MEDS: Melatonin 3 MG TABLET 6 MG PO (23:00)
[2024-03-11] MEDS: vancomycin HCL 750 MG in 0.9 % Sodium Chloride 250 ML 265 MG IV (23:00)
[2024-03-12] MEDS: oxyCODONE HCl Immed Release 5 MG TABLET PO ×2 (03:20→08:42)
[2024-03-12] MEDS: Acetaminophen 325 MG TABLET 650 MG PO (03:20)
[2024-03-12 04:00] VITALS: BP 104/63; PULSE 75; RESP 16; TEMP 37.1; O2SAT 95
[2024-03-12] MEDS: Omeprazole 20 MG CAPSULE.DR PO (05:32)
[2024-03-12 06:27] LABS: MANUAL DIFF FLAG NO
[2024-03-12 06:51] LABS: Basophils Absolute Auto 0.1 X10*3/uL (0.0-0.2); Basophils Percent Auto 0.6 % (0-2); Eosinophils Absolute Auto 0.2 X10*3/uL (0.0-0.4); Hematocrit 33.1 % (37.0-47.0); Hemoglobin 10.3 g/dl (12.0-16.0); Imm Gran Pct Auto 1.2 % (0.0-0.4); Lymphocytes Absolute Auto 1.6 X10*3/uL (1.2-4.9); Lymphocytes Percent Auto 19.5 % (20-40); Mean Corpuscular HGB Conc 31.1 g/dl (31.0-35.0); Mean Corpuscular Volume 86.6 fL (80.0-98.0); Mean Platelet Volume 9.6 fL (9.4-12.3); Monocytes Absolute Auto 0.9 X10*3/uL (0.1-1.2); Neutrophils Absolute Auto 5.3 x10*3/uL (2.0-8.3); Neutrophils Percent Auto 65.7 % (45-73); Platelet Count 585 X10*3/uL (160-400); Red Blood Count 3.82 X10*6/uL (4.20-5.50); Red Cell Distribution Width 17.2 % (11.0-16.0); White Blood Count 8.1 X10*3/uL (4.8-10.8)
[2024-03-12 07:08] LABS: Creatinine Clr Calc Pharmacy 48.2; Estimated Glomerular Filt Rate 43
[2024-03-12 07:27] VITALS: PULSE 75; RESP 16; O2SAT 97
[2024-03-12] MEDS: Fluticasone/Vilanterol 100/25 BLST.W.DEV 1 PUFF INHALE (07:27)
[2024-03-12 07:45] VITALS: BP 131/65; PULSE 67; RESP 16; TEMP 36; O2SAT 96
[2024-03-12] MEDS: Ezetimibe 10 MG TABLET PO (07:53)
[2024-03-12] MEDS: Atorvastatin Calcium 80 MG TABLET PO (07:53)
[2024-03-12] MEDS: Cholecalciferol (Vitamin D3) 25 MCG TABLET PO (07:53)
[2024-03-12] MEDS: carvediloL 12.5 MG TABLET 37.5 MG PO (07:53)
[2024-03-12] MEDS: Ferrous Sulfate 324 MG TABLET.DR PO (07:54)
[2024-03-12] MEDS: 0.9 % Sodium Chloride Flush 3 ML SYRINGE IVFLUSH (07:54)
[2024-03-12] MEDS: diphenhydrAMINE HCL 25 MG CAPSULE PO (07:54)
[2024-03-12] MEDS: Folic Acid 1 MG TABLET PO (07:54)
[2024-03-12] MEDS: Gabapentin 100 MG CAPSULE PO (07:54)
[2024-03-12] MEDS: Sertraline HCL 50 MG TABLET PO (07:54)
--- NOTE | 2024-03-12 09:33 | MHC.CM.PN ---
Addendum entered by Keli Villalobos RN 03/12/24 10:47: dc summary faxed to [facility] per request @ [phone] Original Note: Patient medically cleared for dc to STR @ [facility]. BLS transport scheduled for 1130. TAMIKA BRANHAM and patient aware.
--- NOTE | 2024-03-12 09:57 | P.DS_ITS ---
DS: Providers Provider Date of Service: 03/12/24 Date of admission: 03/04/24 13:05 Date of discharge: 03/12/24 Primary care physician: Billie Maguire MD Consults: 03/05/24 05:01 Consult to Wound Care Routine Reason for consultation: cellulitis to LLE 03/06/24 16:14 Consult to Infectious Diseases Routine Consulting Provider: [facility] [place] [facility] Reason for consultation: recurrent cellulitis Has provider been notified: Yes 03/08/24 10:46 Consult to Gastroenterology Routine Consulting Provider: Deric Aquino Reason for consultation: Anemia Has provider been notified: No Attending physician on discharge: Lito Ngo Discharging clinician: Janette Ellis DS: Diagnosis Discharge Diagnosis (1) Cellulitis of left leg: Status: Acute DS: Summary Hospital Course Hospital Course: H&P on the day of admission This is a 74-year-old female with pertinent history of congestive heart failure with preserved ejection fraction, CKD stage 3, hypertension, mood disorder, COPD not on home oxygen presents to the emergency department for evaluation of fevers and chills. Patient states that said been ongoing for a week when she 1st noticed swelling, warmth and redness of her left lower extremity. Patient states she took [id number] Tylenol but her symptoms continued. Symptoms have progressed in the last 2-3 days. She also developed nausea, nonbloody emesis and nonbloody diarrhea. Has had poor appetite and generalized fatigability. No chest discomfort, shortness of breath, abdominal pain, changes in urinary habits. In the emergency department, patient was found to be septic and initiated on empiric IV antibiotics. Venous Doppler negative for DVT. Creatinine found to be 2.7 Sepsis due to left leg cellulitis sepsis resolved Initially treated with IV vancomycin, plan to change to doxycycline upon discharge, plan total 14 days. We will need ongoing outpatient wound care Acute kidney injury normalized with volume repletion follow renals/divalents Acute on chronic normocytic anemia transfused 2 units of packed red cells with improvement in H/H due to iron deficiency and folate deficiency Seen by GI - recommend outpatient upper endoscopy and colonoscopy Continue iron and folic acid supplementation CBC has remained stable Hypokalemia/hypomagnesemia resolved with replacement Hypertension Continue Coreg HFpEF stable and well compensated at this time mild elevation in LFTs outpatient follow up Time Attestation Discharge Coordination Time (in mins): 36 Quality: Safe Use of Opioids Does Pt have an Active Cancer Diagnosis on the Problem List?: No Quality: Stroke Does the patient have a stroke diagnosis?: No Physical Exam Vital Signs: Vital Signs: Last Vital Signs Temp 96.8 F 03/12/24 07:45 Pulse 67 03/12/24 07:45 Resp 16 03/12/24 07:45 BP 131/65 03/12/24 07:45 Pulse Ox 96 03/12/24 07:45 O2 Del Method Room Air 03/12/24 07:45 BMI result Body Mass Index 38.3 Const: General: cooperative, comfortable, no acute distress, alert and awake Orientation/consciousness: patient oriented x3 HEENT: Head: Yes normocephalic and Yes atraumatic Eyes: Sclerae: sclerae normal Chest: Chest palpation & inspection: normal inspection of the chest Resp: Effort & Inspection: normal respiratory effort and no respiratory distress Auscultation: clear to auscultation bilaterally Cardio: Rate: regular rate Rhythm: regular rhythm GI: Palpation (GI): Soft to palpation and nontender Skin: Other: left leg with improving erythema, shallow ulceration on posterior calf Neuro: General: patient oriented x3 Cranial nerves: Yes CN's II-XII intact bilaterally and Yes Bilaterally intact EOM present Extrem: General: Yes normal to inspection DS: Data Data Completed and Pending Completed studies during hospitalization [Text1]: Procedures Extraction of Left Tibia, Open Approach (08/28/22) Reposition Left Fibula with Internal Fixation Device, Open Approach (08/09/22) Reposition Left Fibula, External Approach (08/09/22) Reposition Left Tibia with Internal Fixation Device, Open Approach (08/09/22) Reposition Left Tibia, External Approach (08/09/22) Labs on day of discharge: Laboratory Results - last 24 hr 03/11/24 03/12/24 21:16 05:34 WBC 8.1 RBC 3.82 L Hgb 10.3 L Hct 33.1 L MCV 86.6 MCH 27.0 MCHC 31.1 RDW 17.2 H Plt Count 585 H MPV 9.6 Immature Gran % (Auto) 1.2 H Neut % (Auto) 65.7 Lymph % (Auto) 19.5 L [place] % (Auto) 11.0 Eos % (Auto) 2.0 Baso % (Auto) 0.6 Lymph # (Auto) 1.6 [place] # (Auto) 0.9 Eos # (Auto) 0.2 Baso # (Auto) 0.1 Abs Immat Gran (auto) 0.10 H Absolute Neuts (auto) 5.3 Absolute Nucleated RBC 0.000 Nucleated RBC % (auto) 0.0 Creatinine 1.22 Estim Creat Clear Calc 48.2 Estimated GFR 43 Random Vancomycin 18.8 Preliminary micro results at discharge 03/08/24 16:54 Blood Culture - Preliminary Blood - Venous No growth after 48 hours. 03/08/24 16:54 Blood Culture - Preliminary Blood - Venous No growth after 48 hours. Discharge Plan Discharge Anticipated Discharge Date/Time: 03/12/24 11:30 Patient Disposition: er [facility] Discharge Diagnosis: MALLIKA Hypokalemia Left lower extremity cellulitis Referrals: [facility] [Other] - 1 Day (Short term rehab) Billie Maguire MD [Primary Care Provider] - 1 Week Deric Aquino MD [Physician] - 1 Week Discharge Medications: New oxycodone 5 mg Tablet 5 mg PO Q4H PRN (Reason: Pain, Moderate(Pain Scale 4-6)) Qty: 10 0RF Rx Instructions: Partial Fill upon patient request. folic acid 1 mg Tablet 1 mg PO DAILY 90 Days Qty: 90 0RF doxycycline hyclate 100 mg tablet 100 mg PO BID 7 Days Qty: 14 0RF Continued (DME) 3 in 1 commode See Rx Instructions .ROUTE .MEDSUPPLY Qty: 1 0RF Rx Instructions: Displaced trimalleolar fracture of left lower leg, initial encounter for closed fracture (DME) Raised toilet seat See Rx Instructions .ROUTE .MEDSUPPLY Qty: 1 0RF Rx Instructions: As directed (DME) Chair Glider See Rx Instructions .ROUTE .MEDSUPPLY Qty: 1 0RF Rx Instructions: As directed Urgent request medical supply RE: Remi Flores Phone number: [phone] ferrous sulfate 325 mg (65 mg iron) tablet 325 mg PO DAILY Qty: 30 0RF lorazepam 0.5 mg Tablet 0.5 mg PO BEDTIME Qty: 30 0RF trazodone 50 mg tablet 50 mg PO BEDTIME Qty: 30 0RF clonidine HCl 0.1 mg tablet 2 tab PO BEDTIME furosemide 20 mg Tablet 20 mg PO MOWEFR@0900 diphenhydramine HCl [Benadryl] 25 mg Capsule 25 mg PO DAILY albuterol sulfate 90 mcg/actuation Hfa Aerosol Inhaler 2 puff INHALATION Q6H PRN (Reason: Respiratory Distress) furosemide 20 mg tablet 40 mg PO SUTUTHSA@0900 cholecalciferol (vitamin D3) [Vitamin D3] 25 mcg (1,000 unit) Tablet 25 mcg PO DAILY acetaminophen 325 mg tablet 975 mg PO Q6H PRN (Reason: Pain, Severe (Pain Scale 7-10)) fluticasone propion-salmeterol [Wixela Inhub] 250-50 mcg/dose blister with device 1 inh inhalation BID Qty: 60 1RF epinephrine 0.3 mg/0.3 mL auto-injector 0.3 mg IM Q20M PRN (Reason: anaphylaxis) Qty: 2 0RF Rx Instructions: for 2 doses pantoprazole 40 mg tablet,delayed release (DR/EC) 40 mg PO DAILY sertraline 50 mg tablet 50 mg PO DAILY gabapentin 100 mg capsule 100 mg PO TID atorvastatin [Lipitor] 80 mg tablet 80 mg PO DAILY Qty: 90 3RF ezetimibe [Zetia] 10 mg tablet 10 mg PO DAILY Qty: 90 3RF carvedilol 25 mg tablet 37.5 mg PO BID Held losartan 25 mg tablet 25 mg PO DAILY Qty: 90 3RF Hold Instructions: BP has been controlled off of med. was held for MALLIKA, renal function resolved. resume as blood pressure allows Discharge Orders: Discharge Order (Routine); Ordered 03/12/24 Ordered By: Janette Ellis Activity on Discharge: As tolerated Stand Alone Forms: Patient Portal Discharge page Print Language: Persian Care Plan Goals: See below Health Concerns: Sepsis due to left leg cellulitis Acute on chronic anemia Hypokalemia/hypomagnesemia-resolved MALLIKA- resolved Plan of Treatment: Complete 7 more days of oral antibiotics Wound care - Left Leg - Elevate lower legs off of surface of bed with use of pillows.? Cleanse with NS, Pat dry.? Apply vaseline to both legs, apply layer of Durafiber AG to open wound bed secure with ABD pad, gauze wrap and tape. change daily and prn for saturated dressings Outpatient follow-up in Wound Care Clinic For anemia, periodic CBC, starting in 1-2 weeks is recommended. Outpatient follow-up with GI for further workup including endoscopy/colonoscopy Take iron supplementation and folic acid supplementation as prescribed Repeat LFTs in 2 weeks wean pain medication as tolerated Assessment: See discharge summary
--- NOTE | 2024-03-12 10:14 | P.CDIM_ITS ---
PROVIDER RESPONSE TEXT: To clarify, the appropriate diagnosis supported by the clinical indicators: Iron deficiency anemia secondary to chronic blood loss QUERY TEXT: PHYSICIAN'S DOCUMENTATION REQUEST Date of Query: 03/12/2024 07:26 AM EDT Patient Name: Binta Vidal Admit Date: 03/04/2024 Dear Janette BRANHAM, A review of the medical record indicates additional documentation may be needed. Please review below and update the documentation accordingly. Clinical Indicators: GI consult: Anemia associated with iron deficiency and folate deficiency. She has had some anemia dating back to 2019 but this has been worsening and has been found to have ir on deficiency requiring a transfusion. Progress note: Acute anemia, transfused 2 units of packed red cells with improvement in H/H. Based on the above, could you clarify which of the following is the most likely type of anemia you ar e evaluating, treating, and/or monitoring? Iron deficiency anemia secondary to chronic blood loss Iron deficiency anemia secondary to acute on chronic blood loss Acute blood loss anemia Other (explain) Clinically unable to determine (explain) Thank you, Jeannine Colby, CCS, CDIS Use of terms such as suspected, likely, concern for, or probable (associated with a specific diagnosi s that is being evaluated, monitored, or treated as if it exists) are acceptable and can be coded in the inpatient se tting, when documented at the time of discharge. Please use your independent medical judgment in providing your response. THIS QUERY IS PART OF THE PERMANENT MEDICAL RECORD
[2024-03-12 10:52] VITALS: BP 131/65; PULSE 67; O2SAT 96
[2024-03-17 13:07] LABS: Endomysial IgA Antibody Negative (Negative)
== END 2024-03-12 12:25 | disposition skilled nursing facility (03) | DRG 720 ==
LOC: HO.ED 13:07 → HO.EDOVER 13:10 → HO.S3 03-05 04:03
PROVIDERS: Hospitalist; Internal Medicine; Admitting Provider Student in an Organized Health Care Education/Training Program; Emergency Provider Emergency Medicine; PCP Internal Medicine; Visit Provider Physician Assistant Medical
DX: A41.9 Sepsis, unspecified organism (principal); N17.9 Acute kidney failure, unspecified; D62 Acute posthemorrhagic anemia; E83.42 Hypomagnesemia; E87.6 Hypokalemia; J44.9 Chronic obstructive pulmonary disease, unspecified; E66.9 Obesity, unspecified; Z68.38 Body mass index [BMI] 38.0-38.9, adult; D63.1 Anemia in chronic kidney disease; F39 Unspecified mood [affective] disorder; E78.2 Mixed hyperlipidemia; I13.0 Hypertensive heart and chronic kidney disease with heart failure and stage 1 through stage 4 chronic kidney disease, or unspecified chronic kidney disease; I50.32 Chronic diastolic (congestive) heart failure; L03.116 Cellulitis of left lower limb; N18.30 Chronic kidney disease, stage 3 unspecified; Z87.891 Personal history of nicotine dependence; Z88.0 Allergy status to penicillin; Z79.51 Long term (current) use of inhaled steroids; Z79.899 Other long term (current) drug therapy
CPT/HCPCS: 36415; 73562; 73610; 73700; 80048; 80053; 80076; 80202; 81001; 81003; 82272; 82565; 82607; 82728; 82746; 83540; 83605; 83690; 83735; 83880; 85025; 86231; 86258; 86364; 86850; 86900; 86901; 86923; 87040; 93005; 93971; 97162; 99285; J0692; J1650; J1940; J3370; J3475; J3480; P9016

== ENCOUNTER → 2024-03-04 10:05 | Outpatient (BNV) | payer BC, SELFPAY | PROVIDERS: Admitting Provider Student in an Organized Health Care Education/Training Program; Emergency Provider Emergency Medicine; PCP Internal Medicine; Visit Provider Internal Medicine Cardiovascular Disease | DX: R94.31 Abnormal electrocardiogram [ECG] [EKG] (principal) | CPT/HCPCS: 93010 ==

== ENCOUNTER → 2024-03-04 13:05 | Outpatient (BNV) | payer BC, SELFPAY | PROVIDERS: Admitting Provider Student in an Organized Health Care Education/Training Program; Emergency Provider Emergency Medicine; PCP Internal Medicine; Visit Provider Internal Medicine | DX: L03.116 Cellulitis of left lower limb (principal) | CPT/HCPCS: 99222 ==

== ENCOUNTER → 2024-03-04 13:05 | Outpatient (BNV) | payer BC, SELFPAY | PROVIDERS: Admitting Provider Student in an Organized Health Care Education/Training Program; Emergency Provider Emergency Medicine; PCP Internal Medicine; Visit Provider Student in an Organized Health Care Education/Training Program | DX: N17.9 Acute kidney failure, unspecified (principal); L03.116 Cellulitis of left lower limb; D64.9 Anemia, unspecified | CPT/HCPCS: 99223; 99232; 99233; 99239 ==

== ENCOUNTER 2024-04-16 13:54 | Outpatient (AMB) | payer BC, SELFPAY ==
--- NOTE | 2024-04-16 13:55 | A.OFFPC_ITS ---
Vital Signs 04/16/24 13:58 Height 5 ft 4 in Weight 206 lb BMI 35.4 BP 130/66 Blood Pressure Location Rt brachial Position Sitting Pulse 74 Pulse Source Pulse Oximeter Pulse Oximetry (%) 100 Oxygen Delivery Method Room Air Intake Visit Reasons: Hospital follow up Intake Note: Pt is here today for a hospital follow up visit. Allergies shrimp Allergy (Severe, Verified 04/16/24 13:56) Anaphylaxis Penicillins Allergy (Unknown, Verified 04/16/24 13:56) UNKNOWN levofloxacin [From Levaquin] Allergy (Verified 04/16/24 13:56) Hypertension paroxetine [From Paxil] Allergy (Verified 04/16/24 13:56) Unknown prochlorperazine [From Compazine] Allergy (Verified 04/16/24 13:56) Unknown green grapes Allergy (Uncoded 04/16/24 14:03) itchy and rash tripoly phosphate Allergy (Uncoded 04/16/24 13:56) Anaphylaxis Medication List - Last Reconciled 04/16/24 by Billie Maguire MD [3 in 1 commode Displaced trimalleolar fracture of left lower leg, initial encounter for closed fracture] acetaminophen 975 mg PO Q6H PRN albuterol sulfate 90 mcg/actuation 2 puffs inhalation Q6H PRN atorvastatin (Lipitor) 80 mg PO DAILY carvedilol 37.5 mg PO BID [Chair Glider As directed Urgent request US medical supply RE: Remi Mark Phone number: [phone]] cholecalciferol (vitamin D3) (Vitamin D3) 25 mcg PO DAILY clonidine HCl 2 tabs PO BEDTIME diphenhydramine HCl (Benadryl) 25 mg PO DAILY epinephrine 0.3 mg (0.3 mL) IM Q20M PRN ezetimibe (Zetia) 10 mg PO DAILY ferrous sulfate 325 mg PO DAILY fluticasone propion-salmeterol 250-50 mcg/dose (Wixela Inhub) 1 inh inhalation BID folic acid 1 mg PO DAILY 90 days furosemide 20 mg PO MOWEFR@0900 furosemide 40 mg PO SUTUTHSA@0900 gabapentin 100 mg PO TID lorazepam 0.5 mg PO BEDTIME losartan 25 mg PO DAILY magnesium PO oxycodone 5 mg PO Q4H PRN pantoprazole 40 mg PO DAILY [Raised toilet seat As directed] sertraline 50 mg PO DAILY trazodone 50 mg PO BEDTIME Tobacco use date assessed: 04/16/24 Fall risk assessment: 1 Fall in past year Last assessed Fall Risk: 04/16/24 Dental Screening Dental Screen Date: 04/16/24 Did you have a dental visit in the last 12 months?: Yes Did you have a dental problem in the last 6 months where you did not have access to dental care?: No Was dental information given to patient?: Patient has dentist HPI Hospital follow up HPI Details Pt presents for [employer] visit. PMH includes HTN, CKD 3, COPD/asthma, HFpEF. Pt was hospitalized for LLE cellulitis in February, followed by SNF stay. Pt was discharged home with home PT and ambulating with a walker. PFSH Medical History (Updated 04/16/24 @ 15:02 by Billie Maguire MD) Chronic kidney disease (CKD) stage G3a/A1, moderately decreased glomerular filtration rate (GFR) between 45-59 mL/min/1.73 square meter and albuminuria creatinine ratio less than 30 mg/g (HFpEF) heart failure with preserved ejection fraction Surgical wound breakdown Psoriasis Cellulitis of right ankle Diverticulosis GERD (gastroesophageal reflux disease) Occult fracture Acute CHF Hepatic steatosis COPD (chronic obstructive pulmonary disease) Uncontrolled hypertension HTN (hypertension) Other and unspecified hyperlipidemia Essential hypertension Inguinal hernia Sliding hiatal hernia COPD (chronic obstructive pulmonary disease) Asthma Gout Arthritis Hypercholesteremia Wound cellulitis Surgical History (Updated 04/16/24 @ 14:39 by Billie Maguire MD) History of ankle surgery Hx of tonsillectomy Hx of rotator cuff surgery History of total left knee replacement Family History Father CHF (congestive heart failure) Mother CHF (congestive heart failure) Social History (Updated 04/16/24 @ 14:24 by Billie Maguire MD) Household Members: Family Household Members Other:: lives with mother, Housing: House Do you presently have visiting nurse or other home services: No Alcohol intake: current Alcohol intake frequency: does not drink Alcohol type: wine Comment: pt rings appropriately Patient Tobacco Use Status: Former Tobacco user (Quit when she was 42 years ago) e-Cigarette/Vaping Use: Never Used Second Hand Smoke Exposure: No Advance Directives Date on File: 12/04/20 service: No Current occupational status: employed 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 1. Little interest or pleasure in doing things: not at all 2. Feeling down, depressed, or hopeless: not at all 3. Trouble falling or staying asleep, or sleeping too much: more than half the days 4. Feeling tired or having little energy: more than half the days 5. Poor appetite or overeating: several days 6. Feeling bad about yourself - or that you are a failure or have let yourself or your family down: not at all 7. Trouble concentrating on things, such as reading the newspaper or watching television: not at all 8. Moving or speaking so slowly that other people could have noticed. Or the opposite - being so fidgety or restless that you have been moving around a lot more than usual: not at all 9. Thoughts that you would be better off or of hurting yourself in some way: not at all Total score: 5 Depression Screening Interpretation: Negative Depression Screening Done: Yes 86097 - PHQ-9 Billing: Yes Source: Developed by Drs. Deric Huizar, Valentina Larson, Wilmer Hampton and colleagues, with an educational solo from [employer]. Thrive Questionnaire Date Thrive assessed: 04/16/24 I am a: Patient What is your living situation today?: I have a steady place to live Within the past 12 months, did the food you bought not last and you didn't have the money to get more?: Never true Within the past 12 months, did you worry whether your food would run out before you got money to buy more?: Never true Do you have trouble paying for medicines?: No Do you have trouble getting transportation to medical appointments?: No Do you have trouble paying your heating and electricity bill?: No Do you have trouble taking care of your child, family member or friend?: No Do you have trouble with day-to-day activities such as bathing, preparing meals, shopping, managing finances, etc.?: I choose not to answer this question Are you currently unemployed and looking for a job?: I choose not to answer this question Are you interested in more education?: No Please select the resources that you would like help with: None Currently or been in a relationship where the following occur: No concerns reported THRIVE Score: 0 AUDIT C Alcohol Use Questionnaire (AUDIT-C) 1. How often do you have a drink containing alcohol?: Never 3. How often do you have six or more drinks on one occasion?: Never Total Score: 0 PIERRE-7 AMB Questionnaire PIERRE-7 Date PIERRE - 7 assessed: 04/16/24 Feeling nervous, anxious, or on edge: 1 = Several days Not being able to stop or control worryin = Not at all Worrying too much about different things: 1 = Several days Trouble relaxin = Several days Being so restless that it is hard to sit still: 0 = Not at all Becoming easily annoyed or irritable: 0 = Not at all Feeling afraid as if something awful might happen: 0 = Not at all Total PIERRE-7 score (0-4 normal; 5-9 mild; 10-14 moderate; 15-21 severe): 3 Source: Developed by Drs. Deric Huizar, Valentina Larson, Wilmer Hampton and colleagues, with an educational solo from [employer]. PIERRE-7 Assessment Billing PIERRE-7 Assessment Tool: PIERRE-7 Assessment 70771 Review of Systems Const All systems reviewed & are unremarkable except as noted in HPI and below Eyes Reports no additional complaints ENT Reports no additional complaints Card Reports no additional complaints Resp Reports no additional complaints GI Reports no additional complaints Reports no additional complaints Physical exam (Primary Care) Vital Signs: Last Vital Signs Pulse 74 04/16/24 13:58 BP 130/66 04/16/24 13:58 Pulse Ox 100 04/16/24 13:58 Oxygen Delivery Method Room Air 04/16/24 13:58 BMI result Body Mass Index 35.4 Tobacco/Smoking Status: Tobacco use Status Tobacco use date assessed 04/16/24 04/16/24 13:58 Patient Tobacco Use Status Former Tobacco user (Quit 04/16/24 14:12 when she was 42 years ago) e-Cigarette/Vaping Use Never Used 04/16/24 14:12 PHQ-9: PHQ-9 Score PHQ-9: Total score 5 04/16/24 13:58 Depression Screening Interpretation: Negative Thrive Assessment: Date of Thrive Assessment Date Thrive assessed 04/16/24 04/16/24 13:58 Currently or been in a relationship where the following occur: No concerns reported Const General: no acute distress HENMT Ears: hearing grossly normal bilaterally Teeth and gingiva: dentition normal Resp Effort & Inspection: normal respiratory effort Auscultation: clear to auscultation bilaterally Cardio Rhythm: regular rhythm Heart sounds: S1 normal heart sound present and S2 normal heart sound present GI Inspection: Yes normal to inspection Palpation (GI): Soft to palpation Percussion: Yes normal to percussion Auscultation: normal bowel sounds Extrem Other: 1+ pitting edema lower extremities with chronic venous stasis Assessment and Plan Assessment & Plan (1) Hx of colonic polyps: Comment: 2018, repeat 2023 Dr. Aquino Code(s): Z86.010 - Personal history of colonic polyps Plan: Follow-up with GI in July for a repeat colonoscopy (2) Status post ORIF of fracture of ankle: Comment: 2021 Code(s): Z98.890 - Other specified postprocedural states; Z87.81 - Personal history of (healed) traumatic fracture Plan: Continue physical therapy (3) Anemia: Code(s): D64.9 - Anemia, unspecified Qualifiers: Anemia type: unspecified type Qualified Code(s): D64.9 - Anemia, unspecified Plan: Multifactorial check CBC iron studies and B12 level (4) (HFpEF) heart failure with preserved ejection fraction: Comment: ECHO 2021 EF 55%, no valvular abnormalities Code(s): I50.30 - Unspecified diastolic (congestive) heart failure Plan: Continue carvedilol and furosemide follow-up with Cardiology for repeat echocardiogram in August (5) Asthma: Code(s): J45.909 - Unspecified asthma, uncomplicated Plan: Controlled on Wixela (6) COPD (chronic obstructive pulmonary disease): Comment: quit smoking in 40's Code(s): J44.9 - Chronic obstructive pulmonary disease, unspecified Plan: cont inhalers (7) Hyperlipemia: Code(s): E78.5 - Hyperlipidemia, unspecified Plan: Continue atorvastatin and Zetia check lipid profile Orders: Orders Complete Blood Count Auto Diff Today D64.9 - Anemia, unspecified, I50.9 - Heart failure, unspecified, Z87.81 - Personal history of (healed) traumatic fracture, Z98.890 - Other specified postprocedural states Hemoglobin A1c Today D64.9 - Anemia, unspecified, I50.9 - Heart failure, unspecified, Z87.81 - Personal history of (healed) traumatic fracture, Z98.890 - Other specified postprocedural states Lipid Panel Today D64.9 - Anemia, unspecified, I50.9 - Heart failure, unspecified, Z87.81 - Personal history of (healed) traumatic fracture, Z98.890 - Other specified postprocedural states Vitamin B12 and Folate Today D64.9 - Anemia, unspecified, I50.9 - Heart failure, unspecified, Z87.81 - Personal history of (healed) traumatic fracture, Z98.890 - Other specified postprocedural states IRON PROFILE Today D64.9 - Anemia, unspecified, I50.9 - Heart failure, unspecified, Z87.81 - Personal history of (healed) traumatic fracture, Z98.890 - Other specified postprocedural states Vitamin D 25-OH Total Today D64.9 - Anemia, unspecified, I50.9 - Heart failure, unspecified, Z87.81 - Personal history of (healed) traumatic fracture, Z98.890 - Other specified postprocedural states Reticulocyte Count Today D64.9 - Anemia, unspecified, I50.9 - Heart failure, unspecified, Z87.81 - Personal history of (healed) traumatic fracture, Z98.890 - Other specified postprocedural states MM screening mammo BI Today Z12.31 - Encounter for screening mammogram for malignant neoplasm of breast Comprehensive Met. Panel Today D64.9 - Anemia, unspecified, I50.9 - Heart failure, unspecified, Z87.81 - Personal history of (healed) traumatic fracture, Z98.890 - Other specified postprocedural states UA w Microscopic Today D64.9 - Anemia, unspecified, I50.9 - Heart failure, unspecified, Z87.81 - Personal history of (healed) traumatic fracture, Z98.890 - Other specified postprocedural states XR DEXA axial skeleton Today Z78.0 - Asymptomatic menopausal state Medications: New ammonium lactate 12% 1 appl topical DAILY PRN 385 grams 0RF dry skin Changed From clonidine HCl 2 tabs PO BEDTIME To clonidine HCl 0.1 mg PO Q12H Discontinued losartan Discontinued Reason: Doctor's Order 25 mg PO DAILY 90 tabs 3RF Coding Level of Care Code Est Pt Level 4 (71589) Diagnoses Hx of colonic polyps Z86.010 Status post ORIF of fracture of ankle Z98.890; Z87.81 Anemia D64.9 Anemia type: unspecified type (HFpEF) heart failure with preserved ejection fraction I50.30 Asthma J45.909 COPD (chronic obstructive pulmonary disease) J44.9 Hyperlipemia E78.5 Additional Codes PIERRE-7 Assessment Billing - PIERRE-7 Assessment Tool: PIERRE-7 Assessment [id number] ([id number])
[2024-04-16 13:58] VITALS: BP 130/66; PULSE 74; O2SAT 100; BMI 35.4
== END 2024-04-16 14:45 | disposition home or self-care (01) ==
PROVIDERS: PCP Internal Medicine; Visit Provider Internal Medicine
DX: I50.30 Unspecified diastolic (congestive) heart failure (principal); J44.9 Chronic obstructive pulmonary disease, unspecified; Z86.010 Personal history of colon polyps; Z98.890 Other specified postprocedural states; Z87.81 Personal history of (healed) traumatic fracture; D64.9 Anemia, unspecified; J45.909 Unspecified asthma, uncomplicated; E78.5 Hyperlipidemia, unspecified
CPT/HCPCS: 99214

== ENCOUNTER 2024-05-13 08:05 | Outpatient (REF) | payer BC, SELFPAY ==
[2024-05-13 08:20] LABS: MANUAL DIFF FLAG NO
[2024-05-13 09:24] LABS: Basophils Percent Auto 0.5 % (0-2); Eosinophils Absolute Auto 0.3 X10*3/uL (0.0-0.4); Eosinophils Percent Auto 5.9 % (0-4); Hematocrit 31.1 % (37.0-47.0); Hemoglobin 10.3 g/dl (12.0-16.0); Imm Gran Abs Auto 0.03 X10*3/uL (0.00-0.03); Imm Gran Pct Auto 0.5 % (0.0-0.4); Immature Retic Fraction 12.4 % (3.0-15.9); Lymphocytes Absolute Auto 1.7 X10*3/uL (1.2-4.9); Lymphocytes Percent Auto 30.9 % (20-40); Mean Corpuscular HGB Conc 33.1 g/dl (31.0-35.0); Mean Corpuscular Hemoglobin 29.5 pg (27.0-33.0); Mean Corpuscular Volume 89.1 fL (80.0-98.0); Monocytes Absolute Auto 0.4 X10*3/uL (0.1-1.2); Monocytes Percent Auto 7.5 % (2-11); Neutrophils Absolute Auto 3.1 x10*3/uL (2.0-8.3); Neutrophils Percent Auto 54.7 % (45-73); Platelet Count 260 X10*3/uL (160-400); Red Blood Count 3.49 X10*6/uL (4.20-5.50); Red Cell Distribution Width 24.2 % (11.0-16.0); Retic HGB Equivalent 36.4 pg (30.0-35.0); Reticulocyte Percent 1.3 % (0.5-1.8); Reticulocytes Absolute 0.046 X10*6/uL (0.026-0.095); White Blood Count 5.6 X10*3/uL (4.8-10.8)
[2024-05-13 09:50] LABS: Appearance Urine Clear; Color Urine Yellow; Glucose Urine UA Negative (Negative); Leukocyte Esterase Urine Negative (Negative); Nitrite Urine Negative (Negative); PH 5.5 (5.0-9.0); Specific Gravity - Urine 1.015 (1.005-1.025); Urine Blood Negative (Negative); Urine Ketones Negative (Negative); Urine Protein Negative (Neg-Trace)
[2024-05-13 09:57] LABS: Bacteria Urine None Seen (None Seen); RBC Urine 0-2 /HPF (0-2); Squamous Epithelial Cell Urine 0-2 /HPF (0-2); WBC Urine 0-5 /HPF (0-5)
[2024-05-13 10:13] LABS: Estimated Average Glucose 108 mg/dL; Hemoglobin A1c % 5.4 % (<6.0)
[2024-05-13 10:30] LABS: Alanine Aminotransferase 9 U/L (0-31); Albumin Level 3.8 g/dL (3.5-5.0); Alkaline Phosphatase 61 U/L (39-117); Anion Gap 11 (12-20); Aspartate Amino Transferase 13 U/L (5-31); Bilirubin Total 0.3 mg/dL (0.0-1.0); Blood Urea Nitrogen 25 mg/dL (9-16); Calcium 9.2 mg/dL (8.4-10.2); Carbon Dioxide 29 mmol/L (22-29); Chloride 104 mmol/L (96-108); Cholesterol 223 mg/dL (<200); Estimated Glomerular Filt Rate 45; Glucose Random 85 mg/dL (60-115); HDL Cholesterol 67 mg/dL (>40); Iron 32 mcg/dL (30-160); LDL Cholesterol Calculated 138 mg/dL (<100); Percent Iron Saturation 13 % (15-50); Potassium 3.6 mmol/L (3.3-5.1); Sodium 140 mmol/L (135-145); Total Iron Binding Capacity 241 mcg/dL (228-428); Total Protein 6.8 g/dL (6.5-8.0); Triglycerides 93 mg/dL (<150); Unsaturated Iron Binding 209 ug/dL
[2024-05-13 10:44] LABS: Folate 14.4 ng/mL (> or = 4.0); Vitamin B12 230 pg/mL (200-900)
== END 2024-05-13 08:06 | disposition home or self-care (01) ==
LOC: HO.LAB 08:05
PROVIDERS: PCP Internal Medicine; Visit Provider Internal Medicine
DX: I50.9 Heart failure, unspecified (principal); D64.9 Anemia, unspecified; Z98.890 Other specified postprocedural states; Z87.81 Personal history of (healed) traumatic fracture
CPT/HCPCS: 36415; 80053; 80061; 81001; 82306; 82607; 82746; 83036; 83540; 85025; 85045

== ENCOUNTER 2024-10-06 13:11 | Emergency (ER) | payer SELFPAY ==
--- NOTE | ~2024-10-06 | US_ITS ---
EXAMINATION: US TRIPLEX LOWER EXTREMITY, LEFT CLINICAL INFORMATION: Left lower extremity pain and swelling involving calf. COMPARISON: 03/04/2024. TECHNIQUE: Color-flow triplex imaging with spectral analysis and compression Doppler were performed on the left lower extremity. FINDINGS: Respiratory variation, normal compression and augmented flow are noted throughout the left lower extremity. The visualized common femoral vein, superficial femoral vein, profunda femoral vein, popliteal vein and midcalf peroneal and posterior tibial venous segments show no evidence of deep venous thrombosis. There is no López's cyst. There is mild calf edema. US/US venous duplex LE IMPRESSION: No evidence of deep venous thrombosis involving the left lower extremity. Electronically signed by: Guy Knutson MD 10/06/2024 04:41 PM [facility]
--- NOTE | ~2024-10-06 | XR_ITS ---
EXAMINATION: XR CHEST CLINICAL INFORMATION: dyspnea, cough COMPARISON: None available. TECHNIQUE: Frontal view of the chest was obtained. FINDINGS: Lungs are well-expanded and clear acute pneumonic process. There is bibasilar atelectasis. Heart size is normal. Pulmonary vascularity is normal. There is moderate size hiatal hernia. No gross bony abnormality seen. XR/XR chest 1V IMPRESSION: Unremarkable chest exam. Moderate sized hiatal hernia. Electronically signed by: Wiley Alston MD 10/06/2024 03:23 PM [facility]
--- NOTE | 2024-10-06 13:39 | ED_ITS ---
HPI - SOB/Dyspnea General Chief Complaint: Extremity Injury, Lower Stated Complaint: FLU LIKE,SOB,WEAK,HIHG BP 182/100 PER EMS Time Seen by Provider: 10/06/24 13:23 Source: patient Mode of arrival: EMS Limitations: no limitations History of Present Illness ED Provider: Luis Angel Calderón DO HPI Narrative: 74-year-old female with past medical history of COPD, asthma, CKD stage 3, heart failure with preserved ejection fraction, osteoarthritis, left trimalleolar fracture in 2022 complicated by infection and treated in the past with PICC line and IV vancomycin/wound vac who presents to the emergency department for shortness of breath and weakness. Patient also reports increased pain over her anterior lower prakash on the left side overlying the area of previous cellulitis and osteomyelitis. She states this has developed over the course of several days. She reports intermittent pain and swelling of the left posterior calf which is present at this time. She denies objective fevers at home but reports that she has ?hot sweats? at times as well as myalgias and increased fatigue and weakness over the course of several days. She ambulates with a walker at baseline and states she is having difficulty getting around the house as well as sitting on the toilet despite using the bars. She feels she needs additional help such as acute rehab. She reports some difficulty breathing and due to her ?15/10 ?pain and hypertension with readings sometimes in the 200s systolically at home she reports here due to these concerns. She reports nausea without vomiting, denies diarrhea, cough, congestion, headache, falls or trauma. Related Data Home Medications ?Medication ?Instructions ?Recorded ?Confirmed pantoprazole 40 mg tablet,delayed 40 mg PO DAILY 11/17/20 10/06/24 release albuterol sulfate 90 mcg/actuation 2 puff inhalation Q6H PRN 08/09/22 10/06/24 aerosol inhaler Respiratory Distress diphenhydramine HCl 25 mg capsule 25 mg PO DAILY 08/09/22 10/06/24 (Benadryl) furosemide 20 mg tablet 20 mg PO MOWEFR@0900 08/09/22 10/06/24 sertraline 50 mg tablet 50 mg PO DAILY 12/26/22 10/06/24 gabapentin 100 mg capsule 100 mg PO TID 08/29/23 10/06/24 carvedilol 25 mg tablet 37.5 mg PO BID 02/04/24 10/06/24 acetaminophen 325 mg tablet 975 mg PO Q6H PRN Pain, Severe 03/04/24 10/06/24 (Pain Scale 7-10) cholecalciferol (vitamin D3) 25 25 mcg PO DAILY 03/04/24 10/06/24 mcg (1,000 unit) tablet (Vitamin D3) furosemide 20 mg tablet 40 mg PO SUTUTHSA@0900 03/04/24 10/06/24 clonidine HCl 0.1 mg tablet 0.1 mg PO Q12H 04/16/24 10/06/24 Previous Rx's ?Medication ?Instructions ?Recorded epinephrine 0.3 mg/0.3 mL 0.3 mg (0.3 mL) IM Q20M PRN 02/23/21 injection, auto-injector anaphylaxis #2 ea fluticasone 250 mcg-salmeterol 50 1 inh inhalation BID #60 ea 02/23/21 mcg/dose blistr powdr for inhalation (Wixela Inhub) ferrous sulfate 325 mg (65 mg 325 mg PO DAILY #30 tabs 11/06/21 iron) tablet 3 in 1 commode #1 ea 09/04/22 Raised toilet seat #1 ea 09/04/22 trazodone 50 mg tablet 50 mg PO BEDTIME #30 tabs 09/06/22 Chair Glider #1 ea 10/15/22 atorvastatin 80 mg tablet (Lipitor) 80 mg PO DAILY #90 tabs 08/29/23 ezetimibe 10 mg tablet (Zetia) 10 mg PO DAILY #90 tabs 08/29/23 folic acid 1 mg tablet 1 mg PO DAILY 90 days #90 tabs 03/12/24 Allergies Allergy/AdvReac Type Severity Reaction Status Date / Time shrimp Allergy Severe Anaphylaxis Verified 10/06/24 14:28 Penicillins Allergy Unknown UNKNOWN Verified 10/06/24 14:28 levofloxacin [From Levaquin] Allergy Hypertensio Verified 10/06/24 14:28 n paroxetine [From Paxil] Allergy Unknown Verified 10/06/24 14:28 prochlorperazine Allergy Unknown Verified 10/06/24 14:28 [From Compazine] green grapes Allergy itchy and Uncoded 04/16/24 14:03 rash tripoly phosphate Allergy Anaphylaxis Uncoded 04/16/24 13:56 Review of Systems 2 Review of Systems: Yes all other systems are reviewed and are negative [facility] Past Medical History Medical History (Updated 10/06/24 @ 17:40 by Luis Angel Calderón DO) Chronic kidney disease (CKD) stage G3a/A1, moderately decreased glomerular filtration rate (GFR) between 45-59 mL/min/1.73 square meter and albuminuria creatinine ratio less than 30 mg/g (HFpEF) heart failure with preserved ejection fraction Surgical wound breakdown Psoriasis Cellulitis of right ankle Diverticulosis GERD (gastroesophageal reflux disease) Occult fracture Acute CHF Hepatic steatosis COPD (chronic obstructive pulmonary disease) Uncontrolled hypertension HTN (hypertension) Other and unspecified hyperlipidemia Essential hypertension Inguinal hernia Sliding hiatal hernia COPD (chronic obstructive pulmonary disease) Asthma Gout Arthritis Hypercholesteremia Wound cellulitis Surgical History (Updated 04/16/24 @ 14:39 by Billie Maguire MD) History of ankle surgery Hx of tonsillectomy Hx of rotator cuff surgery History of total left knee replacement Family History Family History Father CHF (congestive heart failure) Mother CHF (congestive heart failure) Social History Social History (Updated 04/16/24 @ 14:24 by Billie Maguire MD) Household Members: Family Household Members Other:: lives with mother, Housing: House Do you presently have visiting nurse or other home services: No Alcohol intake: current Alcohol intake frequency: does not drink Alcohol type: wine Comment: pt rings appropriately Patient Tobacco Use Status: Former Tobacco user (Quit when she was 42 years ago) e-Cigarette/Vaping Use: Never Used Second Hand Smoke Exposure: No Advance Directives: Yes Advance Directives on File: Yes Advance Directives Date on File: 12/04/20 service: No Current occupational status: employed 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 ?Moist mucous membranes Eyes: ?PERRL, EOMI Neck: ?Supple, nontender Chest: ?No chest wall tenderness Respiratory: ?Lungs clear to auscultation, no increased work of breathing Cardio: ?Regular rate and rhythm, no murmur, 2+ radial and DP pulses symmetrically GI: ?Soft, nondistended, nontender Back: ?Normal range of motion, nontender Skin: ?No rash. The anterior bilateral distal shins show erythema with scaling consistent with history of psoriasis. The area on the left prakash is warm to touch and tender compared to the right. There is no induration or surrounding erythema. No crepitus. Neuro: ?Alert and oriented to person, place and time, moves all 4 extremities, no focal deficits, full 5/5 strength of bilateral lower extremities and full sensation Extremities: ?There is edema and mild induration located over the left posterior calf compared to the right. No overlying skin changes. Psych: ?Calm, alert and cooperative, appropriate behavior Medications Administered Discontinued Medications Generic Name Dose Route Start Last Admin Trade Name Freq PRN Reason Stop Dose Admin Doxycycline Monohydrate 100 mg 10/06/24 14:29 10/06/24 16:05 Doxycycline Monohydrate 100 Mg Capsule PO 10/06/24 14:30 100 mg ONCE ONE Administration Hydromorphone HCl 0.5 mg 10/06/24 14:29 10/06/24 14:44 Hydromorphone Hcl 0.5 Mg/0.5 Ml Syringe IVPUSH 10/06/24 14:30 0.5 mg ONCE ONE Administration Protocol Acetaminophen 1,000 mg in 100 mls @ 400 mls/hr 10/06/24 14:29 10/06/24 15:15 Ofirmev IV 10/06/24 14:43 Infused ONCE ONE Infusion Morphine Sulfate 4 mg 10/06/24 18:46 10/06/24 18:54 Morphine Sulfate 4 Mg/Ml Cartridge IVPUSH 10/06/24 18:47 4 mg ONCE ONE Administration Protocol Medical Decision Making Medical Decision Making MDM Narrative: 74-year-old female with multiple comorbidities presents with increased pain of the left lower extremity with edema of the left posterior calf. She is hypertensive here which is likely secondary to her pain. We will address her pain with IV acetaminophen and hydromorphone. She has not appear to be doing well at home and will likely require acute rehab once medically clear. Although she has no tachycardia or tachypnea, with her extensive infectious history, we will evaluate for occult sepsis with labs. We will also evaluate for DVT with ultrasound. Respiratory swab unremarkable. Unremarkable workup, no signs of sepsis. Negative DVT study, unremarkable chest x-ray. Pain improved from a ?20/10 to 13/10? after hydromorphone and acetaminophen. The patient declines offered re-dose of hydromorphone at this time. We will continue to monitor. She agrees with plan for acute rehab. Physical therapy and case management consult as well as diet have been ordered. Patient is not currently meeting criteria for admission. Patient has significant improvement in her pain after morphine. We will transition to acetaminophen for moderate pain and oxycodone for severe pain. Order her home medications including 5 day course of doxycycline to continue again tomorrow. Patient has been evaluated by case management and will remain in the care of the emergency department until physical therapy evaluation and likely acute rehab placement. Admission/Observation Consideration of admission/observation: Escalation of care including admission/observation considered Lab Data MDM Lab Attestation statement: I reviewed the patient's lab results. CBC shows no leukocytosis, baseline mild anemia, unremarkable chemistry including electrolytes and renal function, unremarkable lactic acid, mild elevation of troponin to 8.5 10/06/24 15:42 10/06/24 15:42 Labs: Lab Results 10/06/24 10/06/24 10/06/24 Range/Units 13:37 15:42 18:59 WBC 6.7 (4.8-10.8) X10*3/uL RBC 3.51 L (4.20-5.50) X10*6/uL Hgb 11.2 L (12.0-16.0) g/dl Hct 32.9 L (37.0-47.0) % MCV 93.7 (80.0-98.0) fL MCH 31.9 (27.0-33.0) pg MCHC 34.0 (31.0-35.0) g/dl RDW 14.0 (11.0-16.0) % Plt Count 263 (160-400) X10*3/uL MPV 9.5 (9.4-12.3) fL Immature Gran % (Auto) 0.4 (0.0-0.4) % Neut % (Auto) 71.4 (45-73) % Lymph % (Auto) 18.2 L (20-40) % Mayes % (Auto) 9.0 (2-11) % Eos % (Auto) 0.4 (0-4) % Baso % (Auto) 0.6 (0-2) % Lymph # (Auto) 1.2 (1.2-4.9) X10*3/uL Mayes # (Auto) 0.6 (0.1-1.2) X10*3/uL Eos # (Auto) 0.0 (0.0-0.4) X10*3/uL Baso # (Auto) 0.0 (0.0-0.2) X10*3/uL Abs Immat Gran (auto) 0.03 (0.00-0.03) X10*3/uL Absolute Neuts (auto) 4.8 (2.0-8.3) x10*3/uL Absolute Nucleated RBC 0.000 (0.0-0.012) X10*3/uL Nucleated RBC % (auto) 0.0 (0.0-0.2) /100WBC Sodium 136 (135-145) mmol/L Potassium 4.0 (3.3-5.1) mmol/L Chloride 103 (96-108) mmol/L Carbon Dioxide 20 L (22-29) mmol/L Anion Gap 17 (12-20) BUN 13 (9-16) mg/dL Creatinine 0.96 (0.5-1.4) mg/dL Estim Creat Clear Calc 58.5 Estimated GFR 57 Random Glucose 78 (60-115) mg/dL Lactic Acid 1.2 (0.5-2.0) mmol/L Calcium 8.6 D (8.4-10.2) mg/dL Total Bilirubin 0.8 (0.0-1.0) mg/dL Direct Bilirubin 0.2 (0.0-0.5) mg/dL AST 36 H (5-31) U/L ALT 10 (0-31) U/L Alkaline Phosphatase 90 (39-117) U/L Troponin I High Sens 8.5 8.2 (<3.5-17.0) ng/L Total Protein 7.4 (6.5-8.0) g/dL Albumin 3.6 (3.5-5.0) g/dL Influenza Type A (PCR) NEGATIVE (Negative) Influenza Type B (PCR) NEGATIVE (Negative) RSV RNA Qual (PCR) NEGATIVE (Negative) SARS-CoV-2 RNA (RT-PCR) NEGATIVE (Negative) Independent Interpretation I performed an independent interpretation of an: EKG and Plain X-Ray Interpretation: Chest x-ray per my independent interpretation shows no acute cardiopulmonary abnormalities. Normal sinus rhythm at 84 beats per minute, left axis deviation, unremarkable intervals with the exception of borderline prolonged QTC, no diagnostic ST or T- wave abnormalities. Radiology Impression Discussion of test interpretation with radiology: I have reviewed the radiologist's reading. Radiologist Impression: IMPRESSION: No evidence of deep venous thrombosis involving the left lower extremity. Electronically signed by: Guy Knutson MD 10/06/2024 04:41 PM EST RP CXR IMPRESSION: Unremarkable chest exam. Moderate sized hiatal hernia. Electronically signed by: Wiley Alston MD 10/06/2024 03:23 PM EST RP Discharge Plan Discharge Clinical Impression: Cellulitis of left leg, Physical deconditioning Patient Disposition: Still a Patient Prescriptions: No Action (DME) 3 in 1 commode See Rx Instructions .ROUTE .MEDSUPPLY Qty: 1 0RF Rx Instructions: Displaced trimalleolar fracture of left lower leg, initial encounter for closed fracture (DME) Raised toilet seat See Rx Instructions .ROUTE .MEDSUPPLY Qty: 1 0RF Rx Instructions: As directed (DME) Chair Glider See Rx Instructions .ROUTE .MEDSUPPLY Qty: 1 0RF Rx Instructions: As directed Urgent request [employer] RE: Remi Flores Phone number: [phone] ferrous sulfate 325 mg (65 mg iron) tablet 325 mg PO DAILY Qty: 30 0RF trazodone 50 mg tablet 50 mg PO BEDTIME Qty: 30 0RF furosemide 20 mg Tablet 20 mg PO MOWEFR@0900 diphenhydramine HCl [Benadryl] 25 mg Capsule 25 mg PO DAILY albuterol sulfate 90 mcg/actuation Hfa Aerosol Inhaler 2 puff INHALATION Q6H PRN (Reason: Respiratory Distress) furosemide 20 mg tablet 40 mg PO SUTUTHSA@0900 cholecalciferol (vitamin D3) [Vitamin D3] 25 mcg (1,000 unit) Tablet 25 mcg PO DAILY acetaminophen 325 mg tablet 975 mg PO Q6H PRN (Reason: Pain, Severe (Pain Scale 7-10)) folic acid 1 mg Tablet 1 mg PO DAILY 90 Days Qty: 90 0RF fluticasone propion-salmeterol [Wixela Inhub] 250-50 mcg/dose blister with device 1 inh inhalation BID Qty: 60 1RF epinephrine 0.3 mg/0.3 mL auto-injector 0.3 mg IM Q20M PRN (Reason: anaphylaxis) Qty: 2 0RF Rx Instructions: for 2 doses pantoprazole 40 mg tablet,delayed release (DR/EC) 40 mg PO DAILY clonidine HCl 0.1 mg tablet 0.1 mg PO Q12H sertraline 50 mg tablet 50 mg PO DAILY gabapentin 100 mg capsule 100 mg PO TID atorvastatin [Lipitor] 80 mg tablet 80 mg PO DAILY Qty: 90 3RF ezetimibe [Zetia] 10 mg tablet 10 mg PO DAILY Qty: 90 3RF carvedilol 25 mg tablet 37.5 mg PO BID Print Language: [place]
[2024-10-06 13:43] VITALS: BP 152/100; PULSE 85; O2SAT 98
[2024-10-06 14:23] LABS: Influenza A PCR NEGATIVE (Negative); Influenza B PCR NEGATIVE (Negative); Resp Syncy Virus RNA Qual PCR NEGATIVE (Negative); SARS COV2 PCR INHOUSE NEGATIVE (Negative)
[2024-10-06 14:25] VITALS: BP 184/125; PULSE 83; RESP 16; TEMP 36.6; O2SAT 99; BMI 35.1
[2024-10-06] MEDS: HYDROmorphone HCl 0.5 MG/0.5 ML SYRINGE IVPUSH (14:44)
[2024-10-06] MEDS: Acetaminophen 1,000 MG/100 ML PIGGYBACK 400 MG IV (14:45)
--- OUTSIDE RECORDS SUMMARY | 2024-10-06 15:27 | XMS_ITS | Clinical Summary ---
Author Organization [facility], Address [address] [place] [address] [place] [address] Phone Care Team Providers Care Systems Navigator Name Role Phone Unavailable Primary Care Provider Unavailabl e Allergies Active Allergy Reactions Criticality Noted Date Comments Cephalexin 03/07/2020 Kiwi Extract 11/03/2017 Latex Other (see comments) 09/29/2019 Levofloxacin 12/08/2019 Raises blood pressure, and HR Other Hives,Swelling 11/03/2017 Tripolyphosphate, Paroxetine Other (see comments) Medium 11/03/2017 Seratonin Syndrome Prochlorperazine Other (see comments) 0 Medications fluticasone HFA (FLOVENT HFA) 44 MCG/ACT inhaler Comments: Filled Date: Jan 27 2017 12:00AM Patient Notes: 2 PUFFS TWICE A DAY INHALATION RINSE MOUTH AFTER USE 30 DAYS Duration: 7 Active LORazepam (ATIVAN) 0.5 MG tablet Comments: Filled Date: Jan 27 2017 12:00AM Patient Notes: TAKE 1 TABLET BY MOUTH EVERY DAY 30 DAYS Duration: 7 Active pantoprazole (PROTONIX) 40 MG EC tablet Comments: Filled Date: Jan 26 2017 12:00AM Patient Notes: TAKE 1 TABLET BY MOUTH EVERY DAY Duration: 7 Active KLOR-CON 20 MEQ CR tablet Take 2 tablets (40 mEq total) by mouth 1 (one) time each day 90 tablet 3 1 Active carvedilol (COREG) 25 MG tablet Take 25 mg by mouth in the morning and 25 mg in the evening. 3 Active folic acid (FOLVITE) 1 MG tablet Take 1,000 mcg by mouth 1 (one) time each day 3 Active losartan (COZAAR) 25 MG tablet Take 25 mg by mouth 1 (one) time each day 3 Active sertraline (ZOLOFT) 50 MG tablet Take 50 mg by mouth 1 (one) time each day 3 Active spironolactone (ALDACTONE) 25 MG tablet Take 25 mg by mouth 1 (one) time each day 3 Active traZODone (DESYREL) 50 MG tablet Take 50 mg by mouth at bed time 3 Active gabapentin (Neurontin) 100 MG capsule Take 1 capsule (100 mg total) by mouth in the morning and 1 capsule (100 mg total) in the evening and 1 capsule (100 mg total) before bedtime. 90 capsule 11 3 Active furosemide (LASIX) 20 MG tablet TAKE 1 TABLET BY MOUTH TWICE A DAY NEEDED FOR LEG SWELLING 60 tablet 11 4 Active cloNIDine (CATAPRES) 0.1 MG tablet TAKE 1 TABLET BY MOUTH TWICE A DAY 180 tablet 11 5 Active Active Problems Problem Noted Date Diagnosed Date Anemia 12/18/2020 Edema 10/01/2019 Hypertension 10/01/2019 Chronic kidney disease, stage 3 (moderate) 09/29 Encounters Date Type Department Care Team Description 08/25/2024 Refill [facility] [address] [phone] Conrad Shah MD from Last 3 Months Immunizations Name Administration Dates Next Due Influenza Split High Dose Pr eservative Free IM 05/11/2019,07/12/2015,05/25/2014 Influenza Vaccine, Quadrivalent, Adjuvanted 05/25 Pneumococcal Conjugate 13-Valent 12/28/2018 Pneumococcal Polysaccharide 07/25/2020 Tdap 03/19/2018 Zoster 07/25/2020 Family History Medical History Relation Comments Diabetes Father Gout Father Heart disease Father Hypertension Father Kidney disease Father ckd 4 Heart disease Mother Relation Status Comments Father Alive Mother Alive Social History Tobacco Use Types Packs/Day Years Used Date Smoking Tobacco: Former Cigarettes 1 24 0 08/25/1969 - 08/25/1993 Comments:Smoking History Inf o:Every day Alcohol Use Standard Drinks/Week Comments Yes 0 (1 standard drink = 0.6 oz pure alcohol) Alcoholic Drinks/day: Occasional social drink Comments Unknown Sex and Gender Information Value Date Recorded Sex Assigned at Not on file Legal Sex Female 4:32 PM EST Gender Identity Not on file Sexual Orientation Not on file Last Filed Vital Signs Vital Sign Reading Time Taken Comments Blood Pressure 168/76 03/22/2024 1:49 PM EDT Pulse - - Temperature - - Respiratory Rate - - Oxygen Saturation - - Inhaled Oxygen Concentration - - Weight 97.1 kg (214 lb) 12/20/2020 5:53 PM EDT Height 160 cm (5' 3 ) 07/30/2019 12:00 PM EST Body Mass Index 37.91 07/30/2019 12:00 PM EST Plan of Treatment Health Maintenance Due Date Last Done Comments Breast Cancer Screening 1950 Colorectal Cancer Screening: Annual FOBT 01/24/2001 Colorectal Cancer Screening: Colonoscopy 01/24/2001 Colorectal Cancer Screening: Sigmoidoscopy 01/24/2001 Hepatitis B Vaccine (1 of 3 - Risk 3-dose series) 2012 Influenza Vaccine (#1) 2024 1, 05/11/2019, 07/12/2015, Additional history exists Pneumococcal Vaccine: 65+ Years Completed 0, 12/28/2018 Insurance [facility]
--- OUTSIDE RECORDS SUMMARY | 2024-10-06 15:27 | XMS_ITS ---
Author Organization [facility] Address Unknown Problems Problem Status Start Date End Date DISPLACED TRIMALLEOLAR FRACT URE OF LEFT LOWER LEG, SUBSEQUENT ENCOUNTER FOR CLOSED FRACTURE WITH ROUTINE HEALING (Primary) (S82.852D - ICD-10-CM) ACTIVE 08/16/2022 ESSENTIAL (PRIMARY) HYPERTENSION (I10 - ICD-10-CM) ACT CICI 08/16/2022 CHRONIC KIDNEY DISEASE, STAGE 3A (N18.31 - ICD-10-CM) ACTIVE 08/16/2022 CHRONIC OBSTRUCTIVE PULMONAR Y DISEASE, UNSPECIFIED (J44.9 - ICD-10-CM) ACTIVE 08/16/2022 HEART FAILURE, UNSPECIFIED (I50.9 - ICD-10-CM) ACTIVE 08/16/2022 FATTY (CHANGE OF) LIVER, NOT ELSEWHERE CLASSIFIED (K76.0 - ICD-10-CM) ACTIVE 08/16/2022 HYPERLIPIDEMIA, UNSPECIFIED (E78.5 - ICD-10-CM) ACTIVE 08/16/2022 OTHER ASTHMA (J45.998 - ICD-10-CM) ACTIVE 2021 DIAPHRAGMATIC HERNIA WITHOUT OBSTRUCTION OR GANGRENE (K44.9 - ICD-10-CM) ACTIVE 08/16/2022 UNSPECIFIED FALL, SEQUELA (W19.XXXS - ICD-10-CM) ACTIV E 08/16/2022 Encounters Encounter Performer Performer Role Encounter Diagnoses Location Date Discharge - Discharged / Transferred to another hospital - [facility] 08/16/2022 07:23 pm EST - 08/17/2022 04:50 am EST Reason For Referral Pain (uncontrolled) Social History
--- OUTSIDE RECORDS SUMMARY | 2024-10-06 15:27 | XMS_ITS | Encounter Summary ---
Author Organization [facility], Address [address] [place] [address] Phone Care Team Providers Care Drapery Rod Assembler Name Role Phone Dai Ortega DO Primary Care Provider [phone] Reason for Visit * Reason Comments Med Refill Encounter Details Date Type Department Care Team (Late st Contact Info) Description 02/26/2021 Refill [facility] [address] [place] [address] Conrad Shah MD [address] [place] [phone] Social History Tobacco Use Types Packs/Day Years [...] on file Sexual Orientation Not on file documented as of this encounter Plan of Treatment Not on file documented as of this encounter Visit Diagnoses Not on filedocumented in this encounter Care Teams Drapery Rod Assembler Relationship Specialty Start Date End Date Dai Ortega DO PCP - General 06/29/19 04/24/21 documented as of this encounter
--- OUTSIDE RECORDS SUMMARY | 2024-10-06 15:27 | XMS_ITS ---
Author Organization [facility] Address [address] [place] [phone] Care Team Providers Care Emulsion Operator Name Role Phone Billie Maguire MD Primary Care Provider Deric Gambino [phone] Encounters Encounter Location Date Provider Diagnosis [facility] [address] [place] [phone] 03/20/2024 Deric Aquino PLAN OF TREATMENT No Information
--- OUTSIDE RECORDS SUMMARY | 2024-10-06 15:27 | XMS_ITS ---
Author Organization [facility] Address [address] [place] [phone] Care Team Providers Care Furniture Inspector Name Role Phone Billie Maguire MD Primary Care Provider Deric Gambino [phone] REASON FOR VISIT Patient presents today for anemia Encounters Encounter Location Date Provider Diagnosis [facility] [address] [place] [phone] 08/03/2024 Deric Aquino PLAN OF TREATMENT No Information
--- OUTSIDE RECORDS SUMMARY | 2024-10-06 15:27 | XMS_ITS ---
Author Organization [facility] Address [address] [place] [phone] Care Team Providers Care Tile And Marble Setter Name Role Phone Billie Maguire MD Primary Care Provider Deric Gambino [phone] REASON FOR VISIT r/s 08/03/24 Encounters Encounter Location Date Provider Diagnosis [facility] [address] [place] [address] 07/27/2024 Deric Aquino PLAN OF TREATMENT No Information
--- OUTSIDE RECORDS SUMMARY | 2024-10-06 15:27 | XMS_ITS | Patient Health Record ---
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 Name Role Phone Billie Maguire MD Primary Care Provider Deric Gambino [phone] ALLERGIES Allergen (clinical drug ingredient) Drug/Non Drug Allergy documented on EMR Reaction Allergy Type Onset Date Status Compazine Unknown Drug Allergy Active prochlorperazine Prochlorperazine Unknown Drug Allergy Active paroxetine Paxil Unknown Drug Allergy Active Levaquin Unknown Drug Allergy Active Latex latex (uncoded) Unknown Allergy Acti ve RESULTS Component Value Reference Range Notes OBSX1 Reviewed date:03/10/2024 02:06:58 PM Interpretation: Performing Lab:[address] [address] Notes/Report: OBS1 NEGATIVE NEGATIVE Transglutaminase Ab IgG Reviewed date:03/19/2024 07:01:37 PM Interpretation: Performing Lab:[address] [address] Notes/Report: Transglutaminase Ab IgG <1.0 Value Interpretation ----- <15.0 Antibody not detected > or = 15.0 Antibody detected THIS TEST WAS PERFORMED AT: [facility] [address] [place] [phone] NARGIS GAMEZ MD Transglutaminase IgA Reviewed date:03/19/2024 07:01:29 PM Interpretation: Performing Lab:[address] [address] Notes/Report: Transglutaminase IgA <1.0 Value Interpretation ----- <15.0 Antibody not detected > or = 15.0 Antibody detected THIS TEST WAS PERFORMED AT: [facility] [address] [place] [phone] NARGIS GAMEZ MD Gliadin Ab Panel Reviewed date:03/19/2024 07:01:22 PM Interpretation: Performing Lab:[address] [address] Notes/Report: Gliadin Deamidated IgA Ab <1.0 Value Interpretation ----- <15.0 Antibody not detected > or = 15.0 Antibody detected Gliadin Deamidated IgG Ab <1.0 Value Interpretation ----- <15.0 Antibody not detected > or = 15.0 Antibody detected THIS TEST WAS PERFORMED AT: [facility] [address] [place] [phone] NARGIS GAMEZ MD Endomysial IgA rflx Titer Reviewed date:03/19/2024 07:01:14 PM Interpretation: Performing Lab:[address] [address] Notes/Report: Endomysial IgA Antibody Negative Negative THIS TEST WAS PERFORMED AT: [facility]/[address] [address] TINO LOPEZ MD,PHD Endomysial Titer TNP REASON FOR REFERRAL No Information MEDICATIONS Medication SIG (Take, Route, Frequency, Duration) Notes Start Date End Date Status Advair Diskus 250-50 MCG/DOSE 1 puff Inhalation Twice a day Active Pantoprazole Sodium 40 MG TAKE 1 TABLET BY MOUTH EVERY DAY for 30 Active traMADol HCl 50 MG as directed Orally prn Active Coreg CR 20 MG 1 capsule with food Orally Once a day Active cloNIDine HCl 0.1 MG 1 tablet Orally Twi ce a day Active LORazepam 0.5 MG 2 tablet as needed O rally Once a day Active Atorvastatin Calcium 40 MG 1 tablet Oral ly Once a day for 30 day(s) Active Furosemide 20 MG 1 tablet Orally Twic e a day Active Albuterol Sulfate HFA 108 (90 Base) MCG/ACT 2 puffs as needed Inhalation every 6 hrs Active Vitamin D (Ergocalciferol) 60398 UNIT 1 capsule Orally per week Ac tive Flonase 50 MCG/ACT 1 spray in each nost ril Nasally Once a day Active IMMUNIZATIONS Vaccine Route Administration Date Status Comme nts Influenza Unknown 08/12/2018 Administered SOCIAL HISTORY Sex Assigned At : Social History Observation Description Sex Assigned At Unknown PROBLEMS Problem Type ICD Code Onset Dates Problem Status W/U Status Risk SNOMED Code Notes Problem Encounter for screening for malignant neoplasm of colon (Z12.11) Active confirmed 072702128 Problem History of adenomatous polyp of colon (Z86.010) Active confirmed 372765510 Problem Iron deficiency anemia (D50.9) Active confirmed Iron deficien cy anemia (02788188) Problem Preprocedural examination (Z01.818) Active confirmed [id number] Encounters Encounter Location Date Provider Diagnosis [facility] [address] [place] [phone] 08/03/2024 Deric Aquino [facility] [address] [place] [phone] 01/30/2024 Deric Aquino [facility] [address] [place] [phone] 03/20/2024 Deric Aquino [facility] [address] [place] [phone] 07/27/2024 Deric Aquino PLAN OF TREATMENT Future Test Test Name Order Date COLONOSCOPY 06/16/2013 COLONOSCOPY 02/03/2019 Insurance Providers Payer Name Payer Address Payer Phone Subscriber Number Group Number Insured Name Patient Relationship to Insured Coverage Start Date Coverage End Date [facility] [address] [place] [address] [phone] [id number] RACHEL BENAVIDES Self - patient is the insured MEDICAL (GENERAL) HISTORY Medical History History ICD Code Screening Colonoscopy 02-18- 008--1 small tubular adenoma removed; neg. colonoscopy in 07/2013 GERD-EGD 5--1998-HH, no Daniels's Hypertension Asthma Anemia-chronic Chronic kidney disease stage III-Dr. 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 Josi Chapin Surgical History Surgery Date(Month/Year) Rotator cuff right shoulder Tonsillectomy
--- OUTSIDE RECORDS SUMMARY | 2024-10-06 15:27 | XMS_ITS | Clinical Summary ---
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 Active Surgical History Surgery Date Site/Laterality Comments TONSILLECTOMY PROCEDURE:TONSILLECTOMY COLONOSCOPY 02/19/2008 PROCEDURE:COLONOSCOPY;COMMENT:s mall tubular adenoma COLONOSCOPY 07/2013 PROCEDURE:COLONOSCOPY;COMMENT:N eg ESOPHAGOGASTRODUODENOSCOPY 12/27/1098 PROCEDURE:ESOPHAGOGASTRODUODENO SCOPY;COMMENT:no , H Hernia Medical History Medical History Date Comments GERD (gastroesophageal reflux disease) DX:GERD (gastroesophageal reflux disease) Low back pain DX:Low back pain Neuromuscular disorder (CMS/HCC) DX:Neuromuscular disorder (HCC) Scoliosis DX:Scoliosis COPD (chronic obstructive pu lmonary disease) (CMS/HCC) DX:COPD (chronic obstructive pulmonary disease) ([facility]) Hypertension DX:Hypertension Allergic rhinitis DX:Allergic rh initis Anemia DX:Anemia Chronic kidney disease DX:Chroni c kidney disease;COMMENT:stage 3 Dr Shah Asthma DX:Asthma;COMMEN T:PFT's 08/2018 CXR no acute dz Screening for breast cancer DX:S creening for breast cancer;COMMENT:Mammo: 09/2018: benign Screening for osteoporosis DX:Sc reening for osteoporosis Screening for colon cancer DX:Sc reening for colon cancer;COMMENT:Colonoscopy: 02/19/2008 small tubular adenoma, 07/2013 neg, 04/2019 Hyperplastic polyp, TIC, IH Cellulitis of right lower extremity 09/2018 DX:Cellulitis of right lower extremity;COMMENT:Tx Keflex Abscess 11/2018 DX:Abscess;COMME NT:RT mid foot Nonhealing nonsurgical wound 09/2018 DX: Nonhealing nonsurgical wound;COMMENT:Rt foot MRI-RT foot 11/2018 no osteo diffuse soft tissue swelling REINIER (obstructive sleep apnea) 12/2018 DX :REINIER (obstructive sleep apnea);COMMENT:MILD : Hand, knee 09/2012: MRI-Lt knee Grade IV chrondromalacia, mild OA medial Cellulitis 01/2019 DX:Cellulitis;CO MMENT:Bilateral lower ext Hyperlipemia DX:Hyperlipemia Gout DX:Gout History of echocardiogram 03/2020 DX:His tory of echocardiogram;COMMENT:EF 60-65%, LV size, wall thickness and syst funct normal, LT atrium mod dil, RVSF normal, Aortic sclerosis, trace MR, asc aorta borderline dil 35mm, Osteoarthritis DX:Osteoarthriti s;COMMENT:Lt knee Venous ulcer (CMS/HCC) 06/2020 DX:Venous ulcer (HCC);COMMENT:LLE Family History Medical History Relation Name Comments COPD Father Diabetes Father Gout Father Heart failure Father Diabetes Maternal Grandmother Lupus Maternal Grandmother Arthritis Mother Heart attack Mother Heart disease Mother Myasthenia gravis Mother Thyroid disease Mother Relation Name Status Comments Father Maternal Grandfather Maternal Grandmother Mother Alive Sister Alive Social History Tobacco Use Types Packs/Day Years Used Date Smoking Tobacco: Former Smokeless Tobacco: Never Alcohol Use Standard Drinks/Week Comments Yes 0 (1 standard drink = 0.6 oz pur e alcohol) Comments Unknown Sex and Gender Information Value Date Recorded Sex Assigned at Not on file Legal Sex Female 4:05 AM EST Gender Identity Not on file Sexual Orientation Not on file Obstetrics History Last Filed Vital Signs Vital Sign Reading Time Taken Comments Blood Pressure 132/82 01/07/2023 12:59 PM EDT Pulse 69 01/07/2023 12:59 PM EDT Temperature - - Respiratory Rate - - Oxygen Saturation - - Inhaled Oxygen Concentration - - Weight 88.5 kg (195 lb) 01/07/2023 12:59 PM EDT Height 162.6 cm (5' 4 ) 05/16/2022 3:25 PM EDT Body Mass Index 33.47 05/16/2022 3:25 PM EDT Plan of Treatment Health Maintenance Due Date Last Done Comments COVID-19 Vaccine (#1) 01/24/1955 Hepatitis A Vaccines (1 of 2 - Risk 2-dose series) 01/24/1971 Hepatitis B Vaccines (1 of 3 - Risk 3-dose series) 2012 RSV Immunization Patients 60+ Years Old (1 - Risk 60-74 years 1-dose series) 2012 Zoster Vaccines (2 of 2) 09/19/2020 07/25/2020 Breast Cancer Screening 10/14/2020 10/14/2018 Cholesterol Screening (Lipid Panel) 07/28/2022 Colorectal Cancer Screening: Colonoscopy 07/28/2022 Depression Screening 07/28/2022 Falls Risk Assessment 07/28/2022 Hepatitis C Screening 07/28/2022 Osteoporosis Screening (Bone Density Screening) 07/28/2022 Social Influencers of Health Screening 07/28/2022 Hypertension/CHF/CAD Annual BMP Blood Test 08/11/2022 Influenza Vaccine (#1) 2024 1, 05/11/2019, 07/12/2015, Additional history exists DTaP,Tdap,and Td Vaccines (2 - Td or Tdap) 03/19/2028 03/19/2018 Pneumococcal Vaccine: 50+ Years Completed 07/25/2020, 12/28/2018 HIB Vaccines Aged Out No longer eligi ble based on patient's age to complete this topic HPV Vaccines Aged Out No longer eligi ble based on patient's age to complete this topic IPV Vaccines Aged Out No longer eligi ble based on patient's age to complete this topic MMR Vaccines Aged Out No longer eligi ble based on patient's age to complete this topic Meningococcal ACWY Vaccine Aged Out N o longer eligible based on patient's age to complete this topic RSV Immunization Patients Under 20 months Aged Out No longer eligible based on patient's age to complete this topic Varicella Vaccines Aged Out No longer eligible based on patient's age to complete this topic Procedures Procedure Name Priority Date/Time Associated Diagnosis Comments BRANDY SCREENING DIGITAL Routine 10/14/2018 5:09 PM EST Encounter for screening mammogram for malignant neoplasm of breast from Last 3 Months or Most Recently Relevant to Health Maintenance Results * BRANDY SCREENING DIGITAL (10/14/2018 5:09 PM EST) Anatomical Region Laterality Modality Mammography 10/14/2018 3:43 PM EST Narrative 10/14/2018 5:09 PM EST [facility] Diagnostic Imaging Department [address] [place] [phone] Patient: ??BINTA VIDAL ?/Age/Sex: 1950 - 68 - F Unit#: ??[id number] ? Location/Status: ??SPDIMAM/REG CLI ? Mnemonic/Ordering Site: ??DIGSC/SPMAM Ordering Physician: ??DAI HASKINS MD [facility] Screening Digital - 10/14/18 - 1603 EXAM: [facility] Screening Digital EXAM DATE AND TIME: 10/14/2018 4:03 PM HISTORY: ??Screening. Sister had breast carcinoma. COMPARISON: ??08/26/14, 10/26/11, 10/12/09 TECHNIQUE: CC and MLO views of both breasts were obtained using full field digital mammography. Bilateral digital breast tomosynthesis was performed in the MLO projection. Computer aided detection with the [employer] 7.2-H was employed. TISSUE DENSITY: b. There are scattered areas of fibroglandular density. FINDINGS: No suspicious masses, grouped microcalcifications, or areas of architectural distortion are seen. A few coarse, benign calcifications are seen in the anterior left breast. The skin and vascularity are unremarkable. IMPRESSION: Stable mammographic appearance of the breasts. ??No evidence of malignancy is seen. A negative mammogram in the presence of a clinically suspicious palpable abnormality does not preclude the possibility of malignancy or alter the indications for biopsy. BI-RADS: ??Category 2: Benign RECOMMENDATION(S): 1: Routine screening mammogram BILATERAL in 1 year. 10414, 10540 3342F, 7025F Dictating Physician: ??SANDY MARLEY MD Electronically Signed by: ??SANDY MARLEY MD Dic Date/Time: ??10/14/181708 Sign date/Time: ??10/14/181708 Procedure Note Sandy Marley MD - 08/14/2022 [facility] Diagnostic Imaging Department [address] [place] [address] Patient: BINTA VIDAL D.O.B./Age/Sex: 1950 - 68 - F Unit#: [id number] Location/Status: [facility] CLI Mnemonic/Ordering Site: [facility] Ordering Physician: DAI HASKINS MD [facility] Screening Digital - 10/14/18 - 1603 EXAM: [facility] Screening Digital EXAM DATE AND TIME: 10/14/2018 4:03 PM HISTORY: Screening. Sister had breast carcinoma. COMPARISON: 08/26/14, 10/26/11, 10/12/09 TECHNIQUE: CC and MLO views of both breasts were obtained using fullfield digital mammography. Bilateral digital breast tomosynthesis was performedin the MLO projection. Computer aided detection with the [employer]2-Keepyas employed. TISSUE DENSITY: b. There are scattered areas of fibroglandular density. FINDINGS: No suspicious masses, grouped microcalcifications, or areas ofarchitectural distortion are seen. A few coarse, benign calcifications are seen in the anterior left breast. The skin and vascularity are unremarkable. IMPRESSION: Stable mammographic appearance of the breasts. No evidence of malignancyis seen. A negative mammogram in the presence of a clinically suspicious palpable abnormality does not preclude the possibility of malignancy or alter the indications for biopsy. BI-RADS: Category 2: Benign RECOMMENDATION(S): 1: Routine screening mammogram BILATERAL in 1 year. 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
[2024-10-06 15:49] LABS: MANUAL DIFF FLAG NO
[2024-10-06 15:50] LABS: Basophils Percent Auto 0.6 % (0-2); Eosinophils Percent Auto 0.4 % (0-4); Hematocrit 32.9 % (37.0-47.0); Hemoglobin 11.2 g/dl (12.0-16.0); Imm Gran Abs Auto 0.03 X10*3/uL (0.00-0.03); Imm Gran Pct Auto 0.4 % (0.0-0.4); Lymphocytes Absolute Auto 1.2 X10*3/uL (1.2-4.9); Lymphocytes Percent Auto 18.2 % (20-40); Mean Corpuscular Hemoglobin 31.9 pg (27.0-33.0); Mean Corpuscular Volume 93.7 fL (80.0-98.0); Mean Platelet Volume 9.5 fL (9.4-12.3); Monocytes Absolute Auto 0.6 X10*3/uL (0.1-1.2); Neutrophils Absolute Auto 4.8 x10*3/uL (2.0-8.3); Neutrophils Percent Auto 71.4 % (45-73); Platelet Count 263 X10*3/uL (160-400); Red Blood Count 3.51 X10*6/uL (4.20-5.50); White Blood Count 6.7 X10*3/uL (4.8-10.8)
[2024-10-06 16:03] LABS: Lactic Acid 1.2 mmol/L (0.5-2.0)
[2024-10-06] MEDS: Doxycycline Monohydrate 100 MG CAPSULE PO (16:05)
[2024-10-06 16:11] LABS: Troponin-I High Sensitivity 8.5 ng/L (<3.5-17.0)
[2024-10-06 16:42] LABS: Alanine Aminotransferase 10 U/L (0-31); Albumin Level 3.6 g/dL (3.5-5.0); Alkaline Phosphatase 90 U/L (39-117); Anion Gap 17 (12-20); Aspartate Amino Transferase 36 U/L (5-31); Bilirubin Direct 0.2 mg/dL (0.0-0.5); Bilirubin Total 0.8 mg/dL (0.0-1.0); Blood Urea Nitrogen 13 mg/dL (9-16); Calcium 8.6 mg/dL (8.4-10.2); Carbon Dioxide 20 mmol/L (22-29); Chloride 103 mmol/L (96-108); Creatinine Clr Calc Pharmacy 58.5; Estimated Glomerular Filt Rate 57; Glucose Random 78 mg/dL (60-115); Sodium 136 mmol/L (135-145); Total Protein 7.4 g/dL (6.5-8.0)
--- NOTE | 2024-10-06 17:39 | ECG_ITS ---
Test Reason : ELEVATED TROPONIN Blood Pressure : */* mmHG Vent. Rate : 84 BPM Atrial Rate : 84 BPM P-R Int : 154 ms QRS Dur : 88 ms QT Int : 412 ms P-R-T Axes : 68 -8 15 degrees QTcB Int : 486 ms Normal sinus rhythm Normal ECG When compared with ECG of 04-Mar-2024 10:14, QRS duration has decreased Referred By: Luis Angel Calderón Electronically Signed By: NORM THOMSON MD
[2024-10-06] MEDS: Morphine Sulfate 4 MG/ML CARTRIDGE IVPUSH (18:54)
[2024-10-06 19:04] VITALS: BP 178/97; PULSE 83; RESP 12; O2SAT 97
[2024-10-06 19:26] LABS: Troponin-I High Sensitivity 8.2 ng/L (<3.5-17.0)
--- NOTE | 2024-10-06 19:44 | MHC.CM.ED ---
Addendum entered by Sunni Torres 10/06/24 20:10: Pt is requesting home PT, however CM is unsure if agencies will accept patient without insurance. TIGER text to Hien De Jesus at [facility]. Will speak with executive team tomorrow. Will place referral in Care Port, along with referrals for private pay STR. Will place referral to [facility]. Original Note: CM met with patient at the request of Dr. Calderón. Pt is A&Ox4. Pt had had issues with her ankle from an injury in 2021. She has had repeated infections/cellulitis and pain. She has been out of work since 2021. She ended up losing her job due to her injury and inability to return to work. She did have COBRA insurance for a year. She has since been uninsured. Pt tells CM that she originally did not pay into Social Security and then had [employer] long term. She did not apply for Medicare at 67. She does not collect social security. She has applied for SS in July of 2024 and still has to complete additional forms. She is requesting help from [facility]. Her elderly mother lives with her. She uses a cane and a walker. Her PCP is Dr. Maguire. Her HCP is her mother, Karla Teresa ([phone]). Pt is agreeable to PT evaluation. She is aware that she would have to private pay for STR. Will place local referrals with requests for private pay rates
--- NOTE | 2024-10-06 20:25 | PC.NURSE ---
Report given to TAMIKA Delgado pt to be moved to overflow
[2024-10-06 21:55] VITALS: BP 198/108; PULSE 96; RESP 16; TEMP 36.7; O2SAT 95
[2024-10-06 22:05] VITALS: BP 198/108
[2024-10-06] MEDS: traZODone HCL 50 MG TABLET PO (22:05)
[2024-10-06] MEDS: cloNIDine HCL 0.1 MG TABLET PO (22:05)
[2024-10-06] MEDS: Gabapentin 100 MG CAPSULE PO (22:05)
[2024-10-06 22:14] VITALS: BP 198/110; PULSE 96
[2024-10-06] MEDS: carvediloL 12.5 MG TABLET 37.5 MG PO (22:14)
[2024-10-07] MEDS: oxyCODONE HCl Immed Release 5 MG TABLET PO ×2 (01:47→10:59)
[2024-10-07 01:48] VITALS: BP 159/75; PULSE 76; RESP 15; TEMP 36.7; O2SAT 98
[2024-10-07 03:27] VITALS: BP 117/59; PULSE 73; RESP 18; TEMP 36.7; O2SAT 98
[2024-10-07 06:51] VITALS: BP 130/91; PULSE 74; RESP 18; TEMP 37.1; O2SAT 96
[2024-10-07 08:14] VITALS: BP 165/79; PULSE 80; RESP 18; TEMP 36.2; O2SAT 98
[2024-10-07] MEDS: Folic Acid 1 MG TABLET PO (08:25)
[2024-10-07] MEDS: Omeprazole 20 MG CAPSULE.DR PO (08:25)
[2024-10-07] MEDS: Furosemide 40 MG TABLET PO (08:25)
[2024-10-07] MEDS: Sertraline HCL 50 MG TABLET PO (08:26)
[2024-10-07] MEDS: Cholecalciferol (Vitamin D3) 25 MCG TABLET PO (08:26)
[2024-10-07] MEDS: Ezetimibe 10 MG TABLET PO (08:26)
[2024-10-07] MEDS: Gabapentin 100 MG CAPSULE PO (08:26)
[2024-10-07] MEDS: Atorvastatin Calcium 80 MG TABLET PO (08:26)
[2024-10-07] MEDS: Doxycycline Monohydrate 100 MG CAPSULE PO (08:26)
[2024-10-07] MEDS: Ferrous Sulfate 324 MG TABLET.DR PO (08:26)
[2024-10-07] MEDS: cloNIDine HCL 0.1 MG TABLET PO (08:27)
[2024-10-07] MEDS: Acetaminophen 325 MG TABLET 975 MG PO (08:28)
[2024-10-07] MEDS: carvediloL 12.5 MG TABLET 37.5 MG PO (08:28)
--- NOTE | 2024-10-07 10:42 | MHC.CM.ED ---
Patient remains in ER overflow. Physical therapy eval completed. Home with services is recommended. Per Hien at [facility], patient has Medicare: [id number]. They will accept patient. Met with patient in regards to discharge planning. Patient agreeable to d/c home with [facility] via. Patient's sister will transport her home. Keli LUNDBERG and Melly BRANHAM aware. Continue to monitor for d/c needs.
[2024-10-07 12:13] VITALS: BP 113/66; PULSE 76; RESP 18; TEMP 36.4; O2SAT 97
[2024-10-07 13:16] VITALS: BP 113/66; PULSE 76; RESP 18; TEMP 36.4; O2SAT 97
== END 2024-10-07 13:13 | disposition still patient (30) ==
PROVIDERS: Emergency Provider Emergency Medicine; PCP Internal Medicine
DX: L03.116 Cellulitis of left lower limb (principal); R79.89 Other specified abnormal findings of blood chemistry; R06.02 Shortness of breath; R60.0 Localized edema; I10 Essential (primary) hypertension; R11.0 Nausea; R26.81 Unsteadiness on feet; M79.605 Pain in left leg; Z87.891 Personal history of nicotine dependence; Z79.899 Other long term (current) drug therapy; Z03.818 Encounter for observation for suspected exposure to other biological agents ruled out
CPT/HCPCS: 0241U; 36415; 71045; 80048; 80076; 83605; 84484; 85025; 87040; 93005; 93971; 96365; 96375; 97161; 99285; J0131; J1171; J2270

== ENCOUNTER → 2024-10-06 14:31 | Outpatient (BNV) | payer SELFPAY | PROVIDERS: Emergency Provider Emergency Medicine; Visit Provider Radiology Diagnostic Radiology | DX: M79.606 Pain in leg, unspecified (principal); R06.00 Dyspnea, unspecified; R05.9 Cough, unspecified | CPT/HCPCS: 71045; 93971 ==

== ENCOUNTER → 2024-10-06 17:39 | Outpatient (BNV) | payer SELFPAY | PROVIDERS: Emergency Provider Emergency Medicine; Visit Provider Internal Medicine Cardiovascular Disease | DX: R79.89 Other specified abnormal findings of blood chemistry (principal) | CPT/HCPCS: 93010 ==

== ENCOUNTER 2024-12-26 11:16 | Inpatient (IN) | payer MEDICARE, SELFPAY ==
[2024-12-26] VITALS (9 sets, daily range): BP systolic 132–169; BP diastolic 55–90; PULSE 81–105; RESP 16–22; TEMP 36.8–37.7; O2SAT 95–100; BMI 38.3
--- NOTE | ~2024-12-26 | XR_ITS ---
CLINICAL HISTORY: sob 1 view chest x-ray Comparison: CR/SR - XR CHEST 1V - 10/06/24 14:55 EST Findings: No consolidation, pleural effusion or pneumothorax. Heart size is accentuated by portable technique and suboptimal inspiratory effort. No CHF. Known hiatal hernia. No acute fracture. IMPRESSION: Hypoventilation. No acute cardiopulmonary process. This document has been electronically signed by: Neeta Tolbert DO on 12/26/2024 15:27:22
--- NOTE | ~2024-12-26 | US_ITS ---
CLINICAL HISTORY: edema, erythema, LEFT leg VENOUS DUPLEX ULTRASOUND LEFT LOWER EXTREMITY Comparison: US/VT/SR - US VENOUS DUPLEX LE LT - 10/06/24 16:01 EST Findings: The visualized deep veins are fully compressible with normal Doppler color flow and spectral tracings. Limited visualization of the peroneal vein and segments of the posterior tibial vein secondary to subcutaneous edema. No popliteal cyst. Multiple left inguinal lymph nodes are identified with normal morphology measuring up to 4.5 x 1.5 cm. There is fluid stranding in the subcutaneous tissues of the calf consistent with edema. IMPRESSION: 1. Negative for left lower extremity deep vein thrombosis. 2. Prominent, likely reactive right inguinal lymph nodes. This document has been electronically signed by: Neeta Tolbert DO on 12/26/2024 15:26:51
--- NOTE | 2024-12-26 11:34 | ED.GENADULT ---
HPI - General Adult General Chief complaint: Extremity Problem Stated complaint: PT STS LLE PAIN/SWELLING,?INF,FEVER/>100,HX SEPSIS Time Seen by Provider: 12/26/24 11:34 Source: patient and RN notes reviewed Mode of arrival: EMS Limitations: no limitations History of Present Illness HPI narrative: 74-year-old female who has history of CKD stage 3, HFpEF, asthma, COPD, hyperlipidemia, anemia, presents for evaluation of left leg pain, swelling and redness. Patient states she has a history of trimalleolar fracture to the left leg complicated by infections, including multiple episodes of cellulitis and sepsis. Patient had a previous hospital admission last year for similar. Patient states that approximately 1 week ago she noticed increased swelling to the left leg. Over the past several days she began to have increased redness and feels as though within the last 24 hours it has spread significantly. She therefore presents to the emergency department. She does report positive fevers, T-max of 103?. She is taking Tylenol with some relief. She also reports increased sharp, burning pain shooting throughout the left leg. She denies any repeat trauma. No nausea or vomiting. Patient states that this is similar to previous cellulitis. Related Data Home Medications ?Medication ?Instructions ?Recorded ?Confirmed pantoprazole 40 mg tablet,delayed 40 mg PO DAILY@0630 11/17/20 12/26/24 release albuterol sulfate 90 mcg/actuation 2 puff inhalation Q6H PRN 08/09/22 12/26/24 aerosol inhaler Respiratory Distress diphenhydramine HCl 25 mg capsule 25 mg PO Q6H PRN Allergy Symptoms 08/09/22 12/26/24 (Benadryl) furosemide 20 mg tablet 20 mg PO MOWEFR@0900 08/09/22 12/26/24 sertraline 50 mg tablet 50 mg PO DAILY 12/26/22 12/26/24 acetaminophen 325 mg tablet 975 mg PO Q6H PRN Pain, Severe 03/04/24 12/26/24 (Pain Scale 7-10) cholecalciferol (vitamin D3) 25 25 mcg PO DAILY 03/04/24 12/26/24 mcg (1,000 unit) tablet (Vitamin D3) furosemide 20 mg tablet 40 mg PO SUTUTHSA@0900 03/04/24 12/26/24 clonidine HCl 0.1 mg tablet 0.1 mg PO BID 04/16/24 12/26/24 fluticasone propionate 50 1 spray intranasal BID 12/26/24 12/26/24 mcg/actuation nasal spray,suspension (Flonase Allergy Relief) Previous Rx's ?Medication ?Instructions ?Recorded epinephrine 0.3 mg/0.3 mL 0.3 mg (0.3 mL) IM Q20M PRN 02/23/21 injection, auto-injector anaphylaxis #2 ea fluticasone 250 mcg-salmeterol 50 1 inh inhalation BID #60 ea 02/23/21 mcg/dose blistr powdr for inhalation (Wixela Inhub) ferrous sulfate 325 mg (65 mg 325 mg PO DAILY #30 tabs 11/06/21 iron) tablet 3 in 1 commode #1 ea 09/04/22 Raised toilet seat #1 ea 09/04/22 Chair Glider #1 ea 10/15/22 gabapentin 100 mg capsule 100 mg PO TID 2 weeks #42 caps 10/07/24 oxycodone 5 mg tablet 5 mg PO Q6H PRN severe pain (scale 10/07/24 score 7-10) #5 tabs atorvastatin 80 mg tablet 80 mg PO DAILY #90 tabs 10/22/24 ezetimibe 10 mg tablet 10 mg PO DAILY #90 tabs 10/22/24 carvedilol 25 mg tablet 25 mg PO BID #180 tabs 11/16/24 Allergies Allergy/AdvReac Type Severity Reaction Status Date / Time shrimp Allergy Severe Anaphylaxis Verified 12/26/24 11:50 Penicillins Allergy Unknown UNKNOWN Verified 12/26/24 11:50 levofloxacin [From Levaquin] Allergy Hypertensio Verified 12/26/24 11:50 n paroxetine [From Paxil] Allergy Unknown Verified 12/26/24 11:50 prochlorperazine Allergy Unknown Verified 12/26/24 11:50 [From Compazine] green grapes Allergy itchy and Uncoded 12/26/24 11:50 rash tripoly phosphate Allergy Anaphylaxis Uncoded 12/26/24 11:50 Review of Systems Constitutional: Constitutional: Reports chills, Reports fever(s) and Denies headache(s) ENT: Denies headache(s), Denies nasal congestion, Denies nasal discharge, Denies neck pain and Denies sore throat Cardiovascular: Cardiovascular: Denies chest pain, Denies palpitations, Denies dyspnea, Denies dyspnea on exertion and Denies orthopnea Respiratory: Respiratory: Denies cough, Denies dyspnea and Denies dyspnea on exertion Gastrointestinal: Gastrointestinal: Denies abdominal pain, Denies melena, Denies hematochezia, Denies diarrhea, Denies nausea and Denies vomiting Genitourinary: Genitourinary: Denies dysuria and Denies urinary urgency Musculoskeletal: Musculoskeletal: Denies back pain, Denies muscle weakness, Denies neck pain and Denies numbness Neurologic: Denies headache(s), Denies focal weakness and Denies numbness Psychiatric: Psychiatric: Denies depression Endocrine: Endocrine: Denies palpitations PMFSH Past Medical History Medical History Chronic kidney disease (CKD) stage G3a/A1, moderately decreased glomerular filtration rate (GFR) between 45-59 mL/min/1.73 square meter and albuminuria creatinine ratio less than 30 mg/g (HFpEF) heart failure with preserved ejection fraction Surgical wound breakdown Psoriasis Cellulitis of right ankle Diverticulosis GERD (gastroesophageal reflux disease) Occult fracture Acute CHF Hepatic steatosis COPD (chronic obstructive pulmonary disease) Uncontrolled hypertension HTN (hypertension) Other and unspecified hyperlipidemia Essential hypertension Inguinal hernia Sliding hiatal hernia COPD (chronic obstructive pulmonary disease) Asthma Gout Arthritis Hypercholesteremia Wound cellulitis Surgical History History of ankle surgery Hx of tonsillectomy Hx of rotator cuff surgery History of total left knee replacement Family History Family History Father CHF (congestive heart failure) Mother CHF (congestive heart failure) Social History Social History Household Members: Family Household Members Other:: lives with mother, Housing: House Do you presently have visiting nurse or other home services: No Alcohol intake: current Alcohol intake frequency: does not drink Alcohol type: wine Comment: pt rings appropriately Patient Tobacco Use Status: Former Tobacco user Smoked in Last 30 Days: No e-Cigarette/Vaping Use: Never Used Second Hand Smoke Exposure: No Use of substances other than those prescribed or required for medical reasons: No Advance Directives: Yes Advance Directives on File: Yes Advance Directives Date on File: 12/04/20 Do you have a plan to hurt others: No Plan service: No Current occupational status: employed 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 There is no erythema or edema. Chronic appearing similar excoriation and crusting to the dorsum of the left proximal foot and distal tibial region. There is also some shallow ulcerations. There is diffuse, circumferential erythema surrounding the left ankle and distal tibia extending to the mid calf. Additional streaking noted. Right foot is +2 Left leg is +3-4 to the knee. Capillary refill is less than 2 seconds. Course Course Course Narrative: December 26, 2024, 12:40 p.m. CBC returned, elevated white count of 19.1. Patient also with H&H of 6.4 and 20.6. Patient does have a history of anemia due to chronic disease likely worsening due to sepsis. Patient had similar presentation last year. She received blood transfusion at that time without issue. I have discussed with the patient about blood transfusion at this time which the patient is agreeable to. Consent form has been signed. 1:18 p.m. labs returned, reviewed with the patient. She is agreeable to remaining in the hospital for further evaluation and management. Message to hospitalist, Dr. Brewer for transfer of care. Medications Administered Generic Name Dose Route Start Last Admin Trade Name Freq PRN Reason Stop Dose Admin Vancomycin HCl 2,000 mg in 500 mls @ 250 mls/hr 12/26/24 13:00 12/26/24 12:22 Vancomycin/Ns IV 12/26/24 14:59 250 mls/hr ONCE ONE Administration Discontinued Medications Generic Name Dose Route Start Last Admin Trade Name Freq PRN Reason Stop Dose Admin Morphine Sulfate 4 mg 12/26/24 11:44 12/26/24 12:09 Morphine Sulfate 4 Mg/Ml Cartridge IVPUSH 12/26/24 11:45 4 mg ONCE ONE Administration Protocol Medical Decision Making Medical Decision Making [facility] Narrative: 74-year-old female who has a history of COPD, CKD, anemia, HFpEF, trimalleolar fracture of the left leg with history of recurrent cellulitis, presents with left leg edema and streaking erythema along with fever. Concern for sepsis. Hold on aggressive IV fluids at this time given the patient's history of CHF. IV antibiotics and labs. Patient has tolerated vancomycin previously. Hold on cephalosporin given the patient's renal dysfunction. Patient will be brought into the hospital for further evaluation and management. Differential Diagnosis Differential Diagnoses: The differential diagnosis associated with the presentation includes Sepsis Cellulitis Metabolic abnormality Phlebitis Admission/Observation Consideration of admission/observation: Escalation of care including admission/observation considered Consult Healthcare Provider Management of the patient was discussed with: Hospitalist Lab Data [facility] Lab Attestation statement: I reviewed the patient's lab results. 12/26/24 12:00 12/26/24 12:00 Labs: Lab Results 12/26/24 12/26/24 12/26/24 Range/Units 12:00 12:15 13:48 WBC 19.1 H (4.8-10.8) X10*3/uL RBC 2.48 L D (4.20-5.50) X10*6/uL Hgb 6.4 L* D (12.0-16.0) g/dl Hct 20.6 L* D (37.0-47.0) % MCV 83.1 (80.0-98.0) fL MCH 25.8 L (27.0-33.0) pg MCHC 31.1 (31.0-35.0) g/dl RDW 18.4 H (11.0-16.0) % Plt Count 259 (160-400) X10*3/uL MPV 11.1 (9.4-12.3) fL Immature Gran % (Auto) 1.4 H (0.0-0.4) % Neut % (Auto) 87.6 H (45-73) % Lymph % (Auto) 4.9 L (20-40) % Barnwell % (Auto) 4.4 (2-11) % Eos % (Auto) 1.5 (0-4) % Baso % (Auto) 0.2 (0-2) % Lymph # (Auto) 0.9 L (1.2-4.9) X10*3/uL Barnwell # (Auto) 0.8 (0.1-1.2) X10*3/uL Eos # (Auto) 0.3 (0.0-0.4) X10*3/uL Baso # (Auto) 0.0 (0.0-0.2) X10*3/uL Abs Immat Gran (auto) 0.26 H (0.00-0.03) X10*3/uL Absolute Neuts (auto) 16.7 H (2.0-8.3) x10*3/uL Absolute Nucleated RBC 0.000 (0.0-0.012) X10*3/uL Nucleated RBC % (auto) 0.0 (0.0-0.2) /100WBC Hold Purple Top SEE NOTE Hold Blue Top SEE NOTE Sodium 134 L (135-145) mmol/L Potassium 3.3 (3.3-5.1) mmol/L Chloride 100 (96-108) mmol/L Carbon Dioxide 22 (22-29) mmol/L Anion Gap 15 (12-20) BUN 43 H (9-16) mg/dL Creatinine 1.47 H (0.5-1.4) mg/dL Estim Creat Clear Calc 40.0 Estimated GFR 35 Random Glucose 96 (60-115) mg/dL Lactic Acid 2.3 H* (0.5-2.0) mmol/L Calcium 8.8 (8.4-10.2) mg/dL Total Bilirubin 0.4 (0.0-1.0) mg/dL AST 162 H (5-31) U/L ALT 28 (0-31) U/L Alkaline Phosphatase 51 (39-117) U/L Total Protein 7.1 (6.5-8.0) g/dL Albumin 3.5 (3.5-5.0) g/dL Blood Type A Positive Antibody Screen NEGATIVE Crossmatch See Detail Independent Interpretation I performed an independent interpretation of an: EKG External Record Review External record reviewed: Inpatient record Prescription Management I considered prescription management with: Pain Medication and Antibiotic Chronic Conditions Patient?s care impacted by: Hypertension Critical Care Time Critical Care Time Critical Care Time: Yes Total Critical Care Time: 60 Attestation: Repeat assessments, interpretation of labs and diagnostics patient update, sepsis management, IV antibiotics and blood transfusion. Discharge Plan Discharge Clinical Impression: Cellulitis and abscess of left leg Sepsis Qualifiers: Sepsis type: sepsis due to unspecified organism Sepsis acute organ dysfunction status: with acute organ dysfunction Acute respiratory failure type: unspecified Severe sepsis shock status: without septic shock Patient Disposition: Admitted As Inpatient
--- NOTE | 2024-12-26 11:44 | ECG_ITS ---
Test Reason : WEAKNESS Blood Pressure : */* mmHG Vent. Rate : 96 BPM Atrial Rate : 96 BPM P-R Int : 126 ms QRS Dur : 98 ms QT Int : 372 ms P-R-T Axes : 51 -2 18 degrees QTcB Int : 469 ms Sinus rhythm with marked sinus arrhythmia Otherwise normal ECG When compared with ECG of 06-Oct-2024 18:47, No significant change was found Referred By: Jamaal Lloyd Electronically Signed By: BREA NGUYEN
[2024-12-26 12:07] LABS: MANUAL DIFF FLAG NO
[2024-12-26 12:08] LABS: Basophils Percent Auto 0.2 % (0-2); Eosinophils Absolute Auto 0.3 X10*3/uL (0.0-0.4); Eosinophils Percent Auto 1.5 % (0-4); Imm Gran Abs Auto 0.26 X10*3/uL (0.00-0.03); Imm Gran Pct Auto 1.4 % (0.0-0.4); Lymphocytes Absolute Auto 0.9 X10*3/uL (1.2-4.9); Lymphocytes Percent Auto 4.9 % (20-40); Mean Corpuscular HGB Conc 31.1 g/dl (31.0-35.0); Mean Corpuscular Hemoglobin 25.8 pg (27.0-33.0); Mean Corpuscular Volume 83.1 fL (80.0-98.0); Mean Platelet Volume 11.1 fL (9.4-12.3); Monocytes Absolute Auto 0.8 X10*3/uL (0.1-1.2); Monocytes Percent Auto 4.4 % (2-11); Neutrophils Absolute Auto 16.7 x10*3/uL (2.0-8.3); Neutrophils Percent Auto 87.6 % (45-73); Platelet Count 259 X10*3/uL (160-400); Red Blood Count 2.48 X10*6/uL (4.20-5.50); Red Cell Distribution Width 18.4 % (11.0-16.0); White Blood Count 19.1 X10*3/uL (4.8-10.8)
[2024-12-26] MEDS: Morphine Sulfate 4 MG/ML CARTRIDGE IVPUSH (12:09)
[2024-12-26 12:21] LABS: Hemoglobin 6.4 g/dl (12.0-16.0)
[2024-12-26 12:22] LABS: Hematocrit 20.6 % (37.0-47.0)
[2024-12-26] MEDS: vancomycin/NS 2,000 MG/500 ML PLAST..BAG 250 MG IV (12:22)
[2024-12-26 12:27] LABS: Alanine Aminotransferase 28 U/L (0-31); Albumin Level 3.5 g/dL (3.5-5.0); Alkaline Phosphatase 51 U/L (39-117); Anion Gap 15 (12-20); Aspartate Amino Transferase 162 U/L (5-31); Bilirubin Total 0.4 mg/dL (0.0-1.0); Blood Urea Nitrogen 43 mg/dL (9-16); Calcium 8.8 mg/dL (8.4-10.2); Carbon Dioxide 22 mmol/L (22-29); Chloride 100 mmol/L (96-108); Estimated Glomerular Filt Rate 35; Glucose Random 96 mg/dL (60-115); Potassium 3.3 mmol/L (3.3-5.1); Sodium 134 mmol/L (135-145); Total Protein 7.1 g/dL (6.5-8.0)
--- NOTE | 2024-12-26 12:42 | PC.NURSE ---
patient sepsis IVF 30ml/kg deferred at this time per MD d/t patient significant CHF history.
--- OUTSIDE RECORDS SUMMARY | 2024-12-26 12:56 | XMS_ITS | Patient Health Record ---
Author Organization [facility] Address [address] [place] [address] Care Team Providers Care Home Day Care Provider Name Role Phone Billie Maguire MD Primary Care Provider Deric Gambino [phone] Allergies Allergen (clinical drug ingredient) Drug/Non Drug Allergy documented on EMR Reaction Allergy Type Onset Date Status Compazine Unknown Drug Allergy Active prochlorperazine Prochlorperazine Unknown Drug Allergy Active paroxetine Paxil Unknown Drug Allergy Active Levaquin Unknown Drug Allergy Active Latex latex (uncoded) Unknown Allergy Acti ve Results Component Value Reference Range Notes OBSX1 Reviewed date:03/10/2024 02:06:58 PM Interpretation: Performing Lab:[address] [address] Notes/Report: OBS1 NEGATIVE NEGATIVE Transglutaminase Ab IgG Reviewed date:03/19/2024 07:01:37 PM Interpretation: Performing Lab:[address] [address] Notes/Report: Transglutaminase Ab IgG <1.0 Value Interpretation ----- <15.0 Antibody not detected > or = 15.0 Antibody detected THIS TEST WAS PERFORMED AT: [facility] [address] [place] [phone] NARGIS GAMEZ MD Transglutaminase IgA Reviewed date:03/19/2024 07:01:29 PM Interpretation: Performing Lab:[address] [address] Notes/Report: Transglutaminase IgA <1.0 Value Interpretation ----- <15.0 Antibody not detected > or = 15.0 Antibody detected THIS TEST WAS PERFORMED AT: [facility] [address] [place] [phone] NARGIS GAMEZ MD Gliadin Ab Panel Reviewed date:03/19/2024 07:01:22 PM Interpretation: Performing Lab:[address] [address] Notes/Report: Gliadin Deamidated IgA Ab <1.0 Value Interpretation ----- <15.0 Antibody not detected > or = 15.0 Antibody detected Gliadin Deamidated IgG Ab <1.0 Value Interpretation ----- <15.0 Antibody not detected > or = 15.0 Antibody detected THIS TEST WAS PERFORMED AT: [facility] [address] [place] [phone] NARGIS GAMEZ MD Endomysial IgA rflx Titer Reviewed date:03/19/2024 07:01:14 PM Interpretation: Performing Lab:[address] [address] Notes/Report: Endomysial IgA Antibody Negative Negative THIS TEST WAS PERFORMED AT: [facility] [address] TINO LOPEZ MD,PHD Endomysial Titer TNP Reason For Referral No Information Medications Medication SIG (Take, Route, Frequency, Duration) Notes [...] every 6 hrs Active Vitamin D (Ergocalciferol) 87476 UNIT 1 capsule Orally per week Ac tive Flonase 50 MCG/ACT 1 spray in each nost ril Nasally Once a day Active Immunizations Vaccine Route Administration Date Status Comme nts Influenza Unknown 08/12/2018 Administered Problems Problem Type SNOMED Code ICD Code Onset Dates Problem Status W/U Status Risk Notes Problem 268553830 Encounter for screening for malignant neoplasm of colon (Z12.11) Active confirmed Problem 085153337 History of adenomatous polyp of colon (Z86.010) Active confirmed Problem Iron deficiency anemia (34190648) Iron deficiency anemia (D50.9) Active confirmed Problem 576688462336216 Preprocedural examination (Z01.818) Active confirmed Encounters Encounter Location Date Provider Diagnosis [facility] [address] [place] [phone] 01/30/2024 Deric Aquino [facility] [address] [place] [phone] 03/20/2024 Deric Aquino [facility] [address] [place] [phone] 07/27/2024 Deric Aquino Plan Of Treatment Future Test Test Name Order Date COLONOSCOPY 06/16/2013 COLONOSCOPY 02/03/2019 Insurance Providers Payer Name Payer Address Payer Phone Subscriber Number Group Number Insured Name Patient Relationship to Insured Coverage Start Date Coverage End Date [facility] [address] [place] [address] [phone] [id number] [facility] RACHEL KELLY Self - patient is the insured Medical (General) History Medical History History ICD Code Screening Colonoscopy 02-18- 008--1 small tubular adenoma removed; neg. colonoscopy in 07/2013 GERD-EGD 5-5-1998-, no Daniels's Hypertension Asthma Anemia-chronic Chronic kidney disease stage III-Dr. 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 Josi Chapin Surgical History Surgery Date(Month/Year) Rotator cuff right shoulder Tonsillectomy
--- OUTSIDE RECORDS SUMMARY | 2024-12-26 12:56 | XMS_ITS | Clinical Summary ---
Author Organization [facility], Address [address] [place] [address] [place] [address] Phone Care Team Providers Care Medical Insurance Claims Processor Name Role Phone Unavailable Primary Care Provider [...] by mouth at bed time 3 Active furosemide (LASIX) 20 MG tablet TAKE 1 TABLET BY MOUTH TWICE A DAY NEEDED FOR LEG SWELLING 60 tablet 11 4 Active cloNIDine (CATAPRES) 0.1 MG tablet TAKE 1 TABLET BY MOUTH TWICE A DAY 180 tablet 11 5 Active gabapentin (NEURONTIN) 100 MG capsule TAKE 1 CAPSULE (100 MG TOTAL) BY MOUTH IN THE MORNING AND IN THE EVENING AND AT BEDTIME 90 capsule 11 5 Active Active Problems Problem Noted Date Diagnosed Date Anemia 12/18/2020 Edema 10/01/2019 Hypertension 10/01/2019 Chronic kidney disease, stage 3 (moderate) 09/29 Encounters Date Type Department Care Team Description 11/25/2024 Telephone [facility], [address] [place] [address] Irena Mena MA 10/22/2024 Refill [facility], [address] [place] [place] [address] Conrad Shah MD from Last 3 Months Immunizations Immunization Administration Dates Next Due Influenza Split High [...] - Risk 3-dose series) 2012 Influenza Vaccine (Season Ended) 2025 06/03/2021, 05/11/2019, 07/12/2015, Additional history exists Pneumococcal Vaccine: 50+ Years Completed 0, 12/28/2018 Pneumococcal Vaccine: Peds ( 0 to 5 Years) and At-Risk Patients (6 to 49 Years) Discontinued 07/25/2020, 12/28/2018 Insurance [facility]
--- OUTSIDE RECORDS SUMMARY | 2024-12-26 12:57 | XMS_ITS ---
Author Organization [facility] Address [address] [place] [phone] Care Team Providers Care Sap Basis Architect Name Role Phone Billie Maguire MD Primary Care Provider Deric Gambino [phone] REASON FOR VISIT Patient presents today for anemia Encounters Encounter Location Date Provider Diagnosis [facility] [address] [facility] [address] [place] [phone] 08/03/2024 Deric Aquino Plan Of Treatment No Information Progress Notes * RACHEL [birth year]DOB:09/1949 (74 yo F)Acc No.[id number]:08/03/2024 Progress Notes Patient:RACHEL DOMINGUEZ A Provider:?Deric Aquino MD :1950???Age:74 Y???Sex:Female D ate:08/03/2024 Address:[address] [place], [place] [phone] Pcp:Billie Maguire MD Subjective: * Chief Complaints: * ???1. Patient presents today for anemia. * Medical History:? Objective: * Vitals:? Assessment: Plan: * Treatment: * * The named appointment provid er may or may not be the originator of this progress note, and it is not deemed complete until electronically signed by the appointment provider. Sign off status: Pending * Provider:?Deric Aquino MD Date:? 024 Generated for Mayra bhardwaj/Danilo/eTransmitting on:?12/26/2024 12:56 PM EDT
--- OUTSIDE RECORDS SUMMARY | 2024-12-26 12:57 | XMS_ITS | Clinical Summary ---
Author Organization [facility] Address [address] [place] [address] Care Team Providers Care Machine Accountant Name Role Phone Unavailable Primary Care Provider Unavailabl e Allergies Active Allergy Reactions Criticality Noted Date Comments Prochlorperazine 11/03/2017 Grapes 11/03/2017 Cephalexin 03/07/2020 Kiwi 11/03/2017 Latex Rash Low 11/03/2017 Levofloxacin 12/08/2019 Raises blood pressure, and HR Lobster Hives 11/03/2017 Other Hives,Swelling 11/03/2017 Tripolyphosphate, Paroxetine Medium 11/03/2017 Seratonin Syndrome Penicillin G 01/07/2023 Seasonal 11/03/2017 Shrimp Hives 11/03/2017 Medications Medication Sig Dispensed Refills Start Date End Date Status pantoprazole (PROTONIX) 40 MG tablet TAKE 1 TABLET BY MOUTH EVERY DAY 10/18/2017 Active cloNIDine (CATAPRES) tablet 0.1 mg TAKE 1 TABLET BY MOUTH TWICE A DAY 10/16/2017 Active ergocalciferol (VITAMIN D2) capsule 83940 units TAKE ONE CAPSULE BY MOUTH EVERY WEEK 10/16/2017 Active fluticasone (FLONASE) 50 MCG/ACT nasal spray spray/apply 1 spray in each nostril daily. 0 Active betamethasone dipropionate (DIPROSONE) 0.05 % ointment 0 01/12/2018 Active diphenhydrAMINE (BENADRYL) 25 mg capsule Take 1 capsule (25 mg total) by mouth 2 (two) times a day. 0 Active Spacer/Aero-Holding Chambers (AEROCHAMBER MV) inhalerIndications:A cute non-recurrent maxillary sinusitis 1 each by Other route 4 (four) times a day as needed for other. Use as instructed 1 each 0 01/15/2018 Active albuterol (PROVENTIL HFA;VENTOLIN HFA) 108 (90 Base) MCG/ACT inhaler Inhale 2 puffs into the lungs every 6 (six) hours as needed for wheezing. 3 Inhaler 3 11/23/2019 Active acetaminophen (TYLENOL) 325 MG tablet Take 2 tablets (650 mg total) by mouth every 6 (six) hours as needed for pain. 0 Active furosemide (LASIX) 20 MG tablet Take 2 tablets (40 mg total) by mouth daily. 0 01/27/2020 Active folic acid (FOLVITE) tablet 1 mg TAKE 1 TABLET BY MOUTH EVERY DAY 30 tablet 6 12/12/2021 Active atorvastatin (LIPITOR) tablet 40 mg TAKE 1 TABLET BY MOUTH EVERY DAY 30 tablet 11 12/24/2021 Active vitamin B-12 (CYANOCOBALAMIN) tablet 1000 mcg Take 1 tablet (1,000 mcg total) by mouth daily. 0 05/11/2022 Active potassium chloride ER (K-DUR,KLOR-CON) tablet 20 mEq TAKE 2 TABLETS (40 MEQ TOTAL) BY MOUTH 1 (ONE) TIME EACH DAY 0 02/05/2021 Active magnesium oxide (MAG-OX) 400 MG tablet 2 tablets (800 mg total) 2 (two) times a day. 0 03/23/2021 Active carvedilol (COREG) 25 MG tablet Take 1 tablet (25 mg total) by mouth 2 (two) times a day. 37.5mg 0 Active spironolactone (ALDACTONE) tablet 25 mg Take 1 tablet (25 mg total) by mouth daily. 90 tablet 1 11/11/2022 Active LORazepam (ATIVAN) 0.5 MG tabletIndications:An xiety state TAKE 1 TABLET BY MOUTH EVERY 8 HOURS NEEDED 30 tablet 0 03/05/2023 Active sertraline (ZOLOFT) 50 MG tabletIndications:Re active depression TAKE 1 TABLET BY MOUTH EVERY DAY 30 tablet 2 06/02/2023 Active traZODone (DESYREL) 50 MG tabletIndications:Re active depression TAKE 1 TABLET BY MOUTH EVERY NIGHT AT BEDTIME. 30 tablet 7 08/26/2023 Active Active Problems Problem Noted Date Diagnosed Date Chronic kidney disease, stage 3a 08/16/2022 Diaphragmatic hernia without obstruction or gang laura 08/16/2022 Displaced trimalleolar fract ure of left lower leg, subsequent encounter for closed fracture with routine healing 08/16/2022 Fatty (change of) liver, not elsewhere classifie d 08/16/2022 Hyperlipidemia, unspecified 08/16/2022 Other asthma 08/16/2022 Unspecified fall, sequela 08/16/2022 Mild intermittent asthma without complication Pure hypercholesterolemia 01/15/2018 Mild peripheral edema 01/15/2018 Gastroesophageal reflux disease without esophagi tis 01/15/2018 Anxiety state 11/03/2017 COPD (chronic obstructive pulmonary disease) Hypertension Allergic rhinitis Anemia Chronic kidney disease Resolved Problems Problem Noted Date Diagnosed Date Resolved Date Edema 10/01/2019 12/08/2019 Immunizations Name Administration Dates Next Due Influenza Quad (Fluad) 0.5 m L >65Yrs (AIIV4) 06/03/2021 Influenza Trivalent (Fluzone High Dose) 0.7 mL (65yrs &>) 05/11/2019,07/12/2015,05/25/2014 Pneumococcal Conjugate PCV13 12/28/2018 Pneumococcal Polysaccharide PPSV23 07/25/2020 Shingrix Vaccine (Zoster Recombinant) 07/25/2020 Tdap 03/19/2018 Zostavax (Zoster Live) 07/25/2020 Family History Medical History Relation Name Comments [...] Date Smoking Tobacco: Former Smokeless Tobacco: Never Tobacco Cessation:Counseling Given: Not Answered Comments:25 years Alcohol Use Standard Drinks/Week Comments Yes 0 (1 standard drink = 0.6 oz pur e alcohol) occ Sex and Gender Information Value Date Recorded Sex Assigned at Female 10/20/2018 4:16 PM EST Gender Identity Female 10/20/2018 4:16 PM EST Sexual Orientation Not on file Job Start Date Occupation Industry Not on file Not on file Not on file Last Filed Vital Signs Vital Sign Reading Time Taken Comments Blood Pressure 132/82 01/07/2023 12:59 PM EDT Pulse 69 01/07/2023 12:59 PM EDT Temperature 36.3 ??C (97.3 ??F) 01/07/2023 12:59 PM E DT Respiratory Rate 16 07/25/2020 2:45 PM EST Oxygen Saturation 97% 01/07/2023 12:59 PM EDT Inhaled Oxygen Concentration - - Weight 88.5 kg (195 lb) 01/07/2023 12:59 PM EDT Height 162.6 cm (5' 4 ) 05/16/2022 3:25 PM EDT Body Mass Index 33.47 05/16/2022 3:25 PM EDT Plan of Treatment Health Maintenance Due Date Last Done Comments Hepatitis C Screening 1950 RSV Adult > 60+ Yrs or (1 - Risk 60-74 years 1-dose series) 2012 Osteoporosis Screening (DEXA Scan) 01/24/2017 03/08/2013 (Pt Reported - Need documentation) Shingrix-Zoster Vaccine (2 of 2) 09/19/2020 07/25/2020, 07/25/2020 Breast Cancer Screening (Mammogram) 10/14/2020 10/14/2018 Depression Screening 07/25/2021 07/25/2020, 03/19/2018, 03/19/2018, Additional history exists Fall Risk Assessment 07/25/2021 07/25/2020, 03/19/2018, 03/19/2018, Additional history exists Preventative Health Evaluation 07/25/2021 07/25/2020, 07/25/2020, 03/19/2018 BMI Counseling 01/08/2024 01/07/2023, 04/26, 07/25/2020, Additional history exists COVID-19 Vaccine ( - season) 2024 08/29/2023 Influenza Vaccine (#1) 2024 , 05/26/2020, 05/11/2019, Additional history exists DTap / Tdap / Td (2 - Td or Tdap) 03/19/2028 03/19/2018 Colon Cancer Screening (Colonoscopy) 05/07/2029 05/07/2019, 03/19/2018 (Declined) Pneumococcal Vaccine Completed 07/25/2020, 12/29/19 19 Hepatitis B Vaccines Aged Out No long er eligible based on patient's age to complete this topic RSV Ped < 20 months Aged Out No longe r eligible based on patient's age to complete this topic
--- OUTSIDE RECORDS SUMMARY | 2024-12-26 12:57 | XMS_ITS ---
Author Organization [facility] Address [address] [place] [phone] Care Team Providers Care Specifications Writer Name Role Phone Billie Maguire MD Primary Care Provider Deric Gambino [phone] Encounters Encounter Location Date Provider Diagnosis [facility] [address] [place] [phone] 03/20/2024 Deric Aquino Plan Of Treatment No Information Progress Notes * RACHEL KELLY LIV[birth year]OB:09/1949 (74 yo F)Acc No.[id number]:03/20/2024 Patient:?RACHEL KELLYXu Malik :1950???Age:74 Y???Sex:Female Address:[address] [place] [address] * true * Date:? Generated for Joaoi benton/Danilo/eTransmitting on:?12/26/2024 12:56 PM EDT
--- OUTSIDE RECORDS SUMMARY | 2024-12-26 12:57 | XMS_ITS | Clinical Summary ---
Author Organization [facility] it Address [address] [place] [address] Care Team Providers Care Middle School Math Teacher Name Role Phone Izzy Figueredo MD Primary Care Provider Medications traZODone (DESYREL) 50 mg tablet Take [...] back pain DX:Low back pain Neuromuscular disorder ([facility] V24, [facility] V28) DX:Neuromuscular disorder ([facility]) Scoliosis DX:Scoliosis COPD (chronic obstructive pu lmonary disease) ([facility] V24, [facility] V28) DX:COPD (chronic o bstructive pulmonary disease) (HCC) Hypertension DX:Hypertension Allergic rhinitis DX:Allergic rh initis [...] 35mm, Osteoarthritis DX:Osteoarthriti s;COMMENT:Lt knee Venous ulcer (CMS/HCC V24, CMS/HCC V28) 06/2020 DX:Venous ulcer (HCC);COMMENT:LLE Family History Medical [...] - Risk 3-dose series) 2012 RSV Immunization Adult Patients (1 - Risk 60-74 years 1-dose series) 2012 Zoster Vaccines (2 of 2) 09/19/2020 07/25/2020 Breast Cancer Screening 10/14/2020 10/14/2018 Cholesterol Screening (Lipid Panel) 07/28/2022 Colorectal Cancer Screening: Colonoscopy 07/28/2022 Depression Screening 07/28/2022 Falls Risk Assessment 07/28/2022 Hepatitis C Screening 07/28/2022 Osteoporosis Screening (Bone Density Screening) 07/28/2022 Social Influencers of Health Screening 07/28/2022 Hypertension/CHF/CAD Annual BMP Blood Test 08/11/2022 Influenza Vaccine (Season Ended) 2025 06/03/2021, 05/11/2019, 07/12/2015, Additional history exists DTaP,Tdap,and Td [...] patient's age to complete this topic Meningococcal B Vaccine Aged Out No l onger eligible based on patient's age to complete this topic RSV Immunization Patients Under 20 months Aged Out No longer eligible based on patient's age to complete this topic Varicella Vaccines Aged Out No longer eligible based on patient's age to complete this topic Procedures Procedure Name Priority Date/Time Associated Diagnosis Comments TEMITOPE SCREENING DIGITAL Routine 10/14/2018 5:09 PM EST Encounter for screening mammogram for malignant neoplasm of breast from Last 3 Months or Most Recently Relevant to Health Maintenance Results * [facility] SCREENING DIGITAL (10/14/2018 5:09 PM EST) Anatomical Region Laterality Modality Mammography 10/14/2018 3:43 PM EST Narrative 10/14/2018 5:09 PM EST [facility] Diagnostic Imaging Department [address] [place] [address] Patient: ??BINTA VIDAL ?/Age/Sex: 1950 - 68 - F Unit#: ??[id number] ? Location/Status: ??SPDIMAM/REG CLI ? Mnemonic/Ordering Site: ??DIGSC/SPMAM Ordering Physician: ??DAI HASKINS MD Temitope Screening Digital - 10/14/18 - 1603 EXAM: [facility] Screening Digital EXAM DATE AND TIME: 10/14/2018 4:03 PM HISTORY: ??Screening. Sister had breast carcinoma. COMPARISON: ??08/26/14, 10/26/11, 10/12/09 TECHNIQUE: CC and MLO views of both breasts were obtained using full field digital mammography. Bilateral digital breast tomosynthesis was performed in the MLO projection. Computer aided detection with the iCAD SecondLook 7.2-H was employed. TISSUE DENSITY: b. There [...] Routine screening mammogram BILATERAL in 1 year. [address], 15356 3342F, 7025F Dictating Physician: ??SANDY MARLEY MD Electronically Signed by: ??SANDY MARLEY MD Dic Date/Time: ??10/14/181708 Sign date/Time: ??10/14/181708 Procedure Note Sandy Marley MD - 08/14/2022 [facility] Diagnostic Imaging Department [address] [place] [address] Patient: BINTA VIDAL./Age/Sex: 1950 68 - F Unit#: [id number] Location/Status: [facility]/REG CLI Mnemonic/Ordering Site: [facility] [place] Ordering Physician: DAI HASKINS MD [facility] Screening Digital - 10/14/18 - 160 EXAM: [facility] Screening Digital EXAM DATE AND TIME: 10/14/2018 4:03 PM HISTORY: Screening. Sister had breast carcinoma. COMPARISON: 08/26/14, 10/26/11, 10/12/09 TECHNIQUE: CC and MLO views of both breasts were obtained using fullfield digital mammography. Bilateral digital breast tomosynthesis was performedin the MLO projection. Computer aided detection with the [employer]2-Book[employer]n'Bloomas employed. TISSUE DENSITY: b. There are scattered [...] Routine screening mammogram BILATERAL in 1 year. 18829, 07734 3342F, 7025F Dictating Physician: SANDY MARLEY MD Electronically Signed by: SANDY MARLEY MD Dic Date/Time: 10/14/181708 Sign date/Time: 10/14/181708 Dai Haskins DO IM BI PROCEDURES Final Result from Last 3 Months or Most Recently Relevant to Health Maintenance Care Teams Middle [employer] Math Teacher Relationship Specialty Start Date End Date Izzy Figueredo MD PCP - General Family Medicine 11/07/21
--- OUTSIDE RECORDS SUMMARY | 2024-12-26 12:57 | XMS_ITS ---
Author Organization [facility] Address [address] [place] [phone] Care Team Providers Care General Forecaster Name Role Phone Billie Maguire MD Primary Care Provider Deric Gambino [phone] REASON FOR VISIT r/s 08/03/24 Encounters Encounter Location Date Provider Diagnosis [facility] [address] [place] [phone] 07/27/2024 Deric Aquino Plan Of Treatment No Information Progress Notes * RACHEL KELLYNATANAELDOB:09/1949 (74 yo F)Acc No.[id number]:07/27/2024 Patient:?RACHEL KELLY King :1950???Age:74 Y???Sex:Female Address:[address] [place] [phone] * true * Date:? Generated for Mayra bhardwaj/Danilo/eTransmitting on:?12/26/2024 12:57 PM EDT
--- OUTSIDE RECORDS SUMMARY | 2024-12-26 12:57 | XMS_ITS ---
Author Organization [facility] Care Team Providers Care Screen Printing Stencil Preparer Name Role Phone Dai Lester Unavailable Unavailable Calin Mcgill Unavailable Unavailable Niecy Laurent Unavailable Unavailable Jori Rosen Unavailable Unavailable Allergies and adverse reactions No Known Allergies Care Team Name Role Address Phone Organization Dates Calin cMgill PCP [address], [address], [facility] (Office): [facility] 08/17/2022 - 08/17/2022 Dai Lester Attending Physician [address] [place] [address], [phone], [facility] (Office): [facility] 08/17/2022 - 08/17/2022 Niecy Laurent Attending Physician [address] [place] [address], [phone], [facility] (Office): [facility] 08/17/2022 - 08/17/2022 Jori Rosen Attending Physician [address] [place], [address], [facility] (Office): [facility] 08/17/2022 - 08/17/2022 Mental Status Section Date Assessment Total Score Description 08/17/2022 CAM 0 No delirium ind icated 08/17/2022 CAM 0 No delirium ind icated Problems Problem # Description Date of onset Resolved Date Code CodeSystem Concern Status 1 CHRONIC KIDNEY DISEASE, STAGE 3A 08/16/[address] active 2 CHRONIC OBSTRUCTIVE PULMONARY DISEASE, UNSPECIFIED 08/16/[address] active 3 DIAPHRAGMATIC HERNIA WITHOUT OBSTRUCTION OR GANGRENE 08/16/[address] active 4 DISPLACED TRIMALLEOLAR FRACTURE OF LEFT LOWER LEG, SUBSEQUENT ENCOUNTER FOR CLOSED FRACTURE WITH ROUTINE HEALING 08/16/[address] active 5 ESSENTIAL (PRIMARY) HYPERTENSION 08/16/[address] active 6 FATTY (CHANGE OF) LIVER, NOT ELSEWHERE CLASSIFIED 08/16/[address] active 7 HEART FAILURE, UNSPECIFIED 08/16/[address] active 8 HYPERLIPIDEMIA, UNSPECIFIED 08/16/[address] active 9 OTHER ASTHMA 08/16/[address] acti ve 10 UNSPECIFIED FALL, SEQUELA 08/16/[address] active Reason for Referral No Reasons for Referral Entered Social History Social History Observation Description Start Date End Date Code Code System Current Smoking Status Tobacco smoking consumption unknown 008744033 SNOMED CT Sex Assigned At Female 1950 04218-1 [facility] Vital Signs Code Code System Vitals Name Values and Units Timing Information 66565-3 [facility] Pain Level Value=6.0 08/17/2022 95493-8 INC O2 % BldC Oximetry Value=98.0 Units= % 08/17/2022 27496-9 LOINC Weight Value=0.0 Units=Lbs 08/17 9279-1 LOINC Respiratory Rate Value=18.0 Units=/m in 08/17/2022 8310-5 INC Body Temperature Value=97.7 Units=?? F 08/17/2022 8867-4 LOINC Heart rate Value=80.0 Units=/min 8302-2 LOINC Height Value=0.0 Units=Inches 08/17/2022 8462-4 LOINC Blood Pressure-Diastolic Value=66 Un its=mmHg 08/17/2022 8480-6 LOINC Blood Pressure-Systolic Oqwjv=533 Un its=mmHg 08/17/2022
[2024-12-26 13:01] LABS: Lactic Acid 2.3 mmol/L (0.5-2.0)
--- NOTE | 2024-12-26 13:54 | P.HPHOSP_ITS ---
History of Present Illness Date of Service: 12/26/24 Attending physician on admission: Mery Brewer Chief Complaint: shortness of breath, leg pain and swelling This is a 74-year-old female with history of CHF, CKD, hypertension who presents to the emergency department with left lower extremity swelling warmth and pain to her left lower extremity. This has been worsening since Friday. Patient states she has a history of trimalleolar fracture to the left leg complicated by infections, including multiple episodes of cellulitis and sepsis. She also reports progressive shortness of breath with exertion. She has had fever. In the emergency room she was noted to be tachycardic and tachypneic. Lab work significant for anemia with H/H of 6.4/20.6 as well as leukocytosis with a white count of 19.1. Lactic acidosis with lactic of 2.3, elevated renal function with creatinine of 1.47 She was last admitted in the hospital under similar circumstances in February 2024. At that time she was treated for cellulitis , was seen by GI who recommended outpatient colonoscopy and endoscopy unfortunately she lost her health insurance and was unable to follow-up with GI. She denies any rectal bleeding or dark stool she denies any hematuria or vomiting blood. She denies dizziness or abdominal pain. Review of Systems 2 Review of Systems: Yes all other systems are reviewed and are negative Constitutional: Constitutional: Denies chills and Denies fever(s) Cardiovascular: Cardiovascular: Denies chest pain, Denies palpitations, Reports dyspnea and Reports dyspnea on exertion Respiratory: Respiratory: Reports dyspnea and Reports dyspnea on exertion Gastrointestinal: Gastrointestinal: Denies abdominal pain, Denies nausea and Denies vomiting Endocrine: Endocrine: Denies palpitations [facility] Medical History Chronic kidney disease (CKD) stage G3a/A1, moderately decreased glomerular filtration rate (GFR) between 45-59 mL/min/1.73 square meter and albuminuria creatinine ratio less than 30 mg/g (HFpEF) heart failure with preserved ejection fraction Surgical wound breakdown Psoriasis Cellulitis of right ankle Diverticulosis GERD (gastroesophageal reflux disease) Occult fracture Acute CHF Hepatic steatosis COPD (chronic obstructive pulmonary disease) Uncontrolled hypertension HTN (hypertension) Other and unspecified hyperlipidemia Essential hypertension Inguinal hernia Sliding hiatal hernia COPD (chronic obstructive pulmonary disease) Asthma Gout Arthritis Hypercholesteremia Wound cellulitis Family History Father CHF (congestive heart failure) Mother CHF (congestive heart failure) Surgical History History of ankle surgery Hx of tonsillectomy Hx of rotator cuff surgery History of total left knee replacement Social History Household Members: Family Household Members Other:: lives with mother, Housing: House Do you presently have visiting nurse or other home services: No Alcohol intake: current Alcohol intake frequency: does not drink Alcohol type: wine Comment: pt rings appropriately Patient Tobacco Use Status: Former Tobacco user Smoked in Last 30 Days: No e-Cigarette/Vaping Use: Never Used Second Hand Smoke Exposure: No Use of substances other than those prescribed or required for medical reasons: No Advance Directives: Yes Advance Directives on File: Yes Advance Directives Date on File: 12/04/20 Do you have a plan to hurt others: No Plan service: No Current occupational status: employed 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, 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 Cognitive needs: No Hearing needs: No Vision needs: No Meds Allergies Allergy/AdvReac Type Severity Reaction Status Date / Time shrimp Allergy Severe Anaphylaxis Verified 12/26/24 11:50 Penicillins Allergy Unknown UNKNOWN Verified 12/26/24 11:50 levofloxacin [From Levaquin] Allergy Hypertensio Verified 12/26/24 11:50 n paroxetine [From Paxil] Allergy Unknown Verified 12/26/24 11:50 prochlorperazine Allergy Unknown Verified 12/26/24 11:50 [From Compazine] green grapes Allergy itchy and Uncoded 12/26/24 11:50 rash tripoly phosphate Allergy Anaphylaxis Uncoded 12/26/24 11:50 Active Medications: Current Medications Acetaminophen (Acetaminophen 325 Mg Tablet) 650 mg PO Q6H PRN PRN Reason: Pain, Mild 1-3,fever,headache Calcium Carbonate (Calcium Carbonate 750 Mg Tab.Chew) 750 mg PO Q4H PRN PRN Reason: Heartburn Vancomycin HCl (Vancomycin/Ns) 2,000 mg in 500 mls @ 250 mls/hr IV ONCE ONE Stop: 12/26/24 14:59 Last Admin: 12/26/24 12:35 Dose: 250 mls/hr Magnesium Hydroxide (Milk Of Magnesia 30 Ml Oral.Susp) 30 ml PO DAILY PRN PRN Reason: Constipation Melatonin (Melatonin 3 Mg Tablet) 6 mg PO BEDTIME PRN PRN Reason: Insomnia Sodium Chloride (0.9 % Sodium Chloride Flush 3 Ml Syringe) 3 ml IVFLUSH QSHIFT [facility] Home Medications ?Medication ?Instructions ?Recorded ?Confirmed ?Last Taken ?Type pantoprazole 40 mg tablet,delayed 40 mg PO DAILY@0630 11/17/20 12/26/24 12/25/24 09:00 History release albuterol sulfate 90 mcg/actuation 2 puff inhalation Q6H PRN 08/09/22 12/26/24 Unknown History aerosol inhaler Respiratory Distress diphenhydramine HCl 25 mg capsule 25 mg PO Q6H PRN Allergy Symptoms 08/09/22 12/26/24 10/06/24 08:00 History (Benadryl) furosemide 20 mg tablet 20 mg PO MOWEFR@0900 08/09/22 12/26/24 12/24/24 History sertraline 50 mg tablet 50 mg PO DAILY 12/26/22 12/26/24 12/25/24 09:00 History acetaminophen 325 mg tablet 975 mg PO Q6H PRN Pain, Severe 03/04/24 12/26/24 Unknown History (Pain Scale 7-10) cholecalciferol (vitamin D3) 25 25 mcg PO DAILY 03/04/24 12/26/24 12/25/24 09:00 History mcg (1,000 unit) tablet (Vitamin D3) furosemide 20 mg tablet 40 mg PO SUTUTHSA@0900 03/04/24 12/26/24 12/25/24 09:00 History clonidine HCl 0.1 mg tablet 0.1 mg PO BID 04/16/24 12/26/24 12/25/24 09:00 History fluticasone propionate 50 1 spray intranasal BID 12/26/24 12/26/24 12/25/24 09:00 History mcg/actuation nasal spray,suspension (Flonase Allergy Relief) Physical Exam 2 Vital Signs and Narrative: Vital Signs: Last Vital Signs Temp 99.6 F 12/26/24 11:50 Pulse 102 H 12/26/24 11:50 Resp 22 H 12/26/24 11:50 BP 169/71 H 12/26/24 11:50 Pulse Ox 100 12/26/24 11:50 O2 Del Method Room Air 12/26/24 11:50 BMI result Body Mass Index 38.3 Const: Other: ill appearing General: alert and awake Nutritional Appearance: obese O rientation/consciousness: patient oriented x3 Resp: Other: able to speak in full sentences but needs to take a break every few minutes; no wheezing on exam Effort & Inspection: no respiratory distress and no use of accessory muscles Cardio: Rate: tachycardic GI: Inspection: No distended Palpation (GI): Soft to palpation Skin: Other: left leg with erythema most of lower leg tracking up over knee; chronic skin changes to ankle/top of feet bilaterally Neuro: General: patient oriented x3, moves all extremities and CN's II-XI intact bilaterally Extrem: Other: extensive left lower extremity edema Results Labs 12/26/24 12:00 12/26/24 12:00 Labs: Laboratory Results - last 24 hr 12/26/24 12/26/24 12/26/24 12:00 12:15 13:48 MCV 83.1 MCH 25.8 L MCHC 31.1 RDW 18.4 H Plt Count 259 MPV 11.1 Immature Gran % (Auto) 1.4 H Neut % (Auto) 87.6 H Lymph % (Auto) 4.9 L Ashley % (Auto) 4.4 Eos % (Auto) 1.5 Baso % (Auto) 0.2 Lymph # (Auto) 0.9 L Ashley # (Auto) 0.8 Eos # (Auto) 0.3 Baso # (Auto) 0.0 Abs Immat Gran (auto) 0.26 H Absolute Neuts (auto) 16.7 H Absolute Nucleated RBC 0.000 Nucleated RBC % (auto) 0.0 Hold Purple Top SEE NOTE Hold Blue Top SEE NOTE Anion Gap 15 Estim Creat Clear Calc 40.0 Estimated GFR 35 Random Glucose 96 Lactic Acid 2.3 H* Calcium 8.8 Total Bilirubin 0.4 AST 162 H ALT 28 Alkaline Phosphatase 51 Total Protein 7.1 Albumin 3.5 Crossmatch See Detail Assessment and Plan (1) Sepsis: Qualifiers: Acute respiratory failure type: unspecified Sepsis acute organ dysfunction status: with acute organ dysfunction Sepsis type: sepsis due to unspecified organism Severe sepsis shock status: without septic shock Status: Acute (2) Anemia: Qualifiers: Anemia type: unspecified type Qualified Code(s): D64.9 - Anemia, unspecified Status: Acute Plan This is a 74-year-old female with history of HFpEF, CKD 3, hypertension, COPD, history of trimalleolar fracture status post multiple recurrent episodes of cellulitis of the left lower extremity who presents to the emergency department with redness pain and swelling of the left lower extremity with associated fever and shortness of breath found to have acute on chronic anemia Severe Sepsis due to left leg cellulitis Meet sepsis criteria with a leukocytosis 19.1, tachycardia, tachypnea, reported fever up to 103. Lactic acid 2.3, repeat pending Continue IV vancomycin Blood cultures pending US pending to rule out DVT due to extensive swelling hold off on fluid for now due to underlying CHF, getting blood transfusion and bp elevated Acute on chronic normocytic anemia Patient denies any overt blood loss Has a history of iron-deficiency and folate deficiency Check iron studies, B12, folate 1 unit of blood ordered in the emergency department GI consult as outpatient egd/colonoscopy was planned after last admission 03/17 but has not been done follow CBC continue po iron- may need IV iron depending on iron studies Shortness of breath Likely due to anemia As No hypoxia less likely due to CHF exacerbation or COPD exacerbation. No wheezing or rales on exam Chest x-ray pending MALLIKA on CKD3 Creatinine 1.47, baseline around 1-1.2 Avoid nephrotoxins - will hold lasix for now Monitor BMP CHFpEF last echo with grade II diastolic dysfunction check cxr, bnp Hold Lasix for now due to MALLIKA Hypertension: Continue clonidine, Coreg Mood disorder: continue sertraline HLD Continue statin and Zetia COPD: No exacerbation during admission. Continue home inhalers DVT prophylaxis-mechanical devices, early ambulation due to anemia Code status-full code Patient will likely require 2 midnight stay in the hospital for management of sepsis and anemia requiring blood transfusion, IV antibiotics and close monitoring as well as specialist evaluation Quality Stroke Does the patient have a stroke diagnosis?: No VTE Prior VTE?: No VTE Risk Level:: Medical - moderate - high VTE Device Contraindication: N/A - Device Ordered VTE Drug Contraindication: Treatment Not Indicated
[2024-12-26 14:23] LABS: Reflex Lactate? Lactic Acid Added
--- NOTE | 2024-12-26 14:34 | PHA.MEDREC ---
Addendum entered by Zaira Elise RP 12/26/24 15:10: [facility] reviewed Original Note: Pharmacy Consult ? Medication Reconciliation Pharmacy has completed the medication reconciliation. Spoke to pt to confirm meds. Per pt, not taking trazodone or folic acid because their prescriptions ran out months ago. Pt states they take furosemide, oxy, wixela, but claim history shows no recent fill of aforementioned medications.
[2024-12-26 14:36] LABS: Iron < 7 mcg/dL (30-160); Percent Iron Saturation 3 % (15-50); Total Iron Binding Capacity 254 mcg/dL (228-428); Unsaturated Iron Binding 247 ug/dL
--- NOTE | 2024-12-26 14:38 | PHA.PROG ---
Admission Date/Time: December 26, 2024 13:55 Indication: SKIN Weight in k.1 kg Adjusted body weight in Kg: [place] body weight in Kg: Obesity Dosing Indication % IBW: Serum Creatinine - Last 168 Hours 12/26/24 12:00 Creatinine 1.47 H Estimated CrCl and GFR - Last 168 Hours 12/26/24 12:00 Estim Creat Clear Calc 40.0 Estimated GFR 35 Vancomycin Loading Dose: 2000 MG Current Vancomycin Dosing Regimen: 500 MG Q12H Vancomycin Monitoring using AUC goal of 400 - 600 range with trough as surrogate marker: GRL=630 TROUGH=15 Date and Time for next Vancomycin Level to be drawn: 12/27/24 @2100 Pharmacist Comments on Vancomycin Plan: Vancomycin dosing will take advantage of Pixim as a clinical decision support tool that uses Bayesian modeling to calculate individual patient's pharmacokinetic parameters and forecast the patient's drug concentration time course with the target goal AUC 24 range of 400 - 600 mg/L/hr.
[2024-12-26 14:55] LABS: Ferritin 135 ng/mL (10-250)
[2024-12-26 15:29] LABS: ~Lactic Acid-LAB USE ONLY 1.7 mmol/L (0.5-2.0)
--- NOTE | 2024-12-26 15:45 | PC.NURSE ---
patient LEFT lower extremity erythema marked for monitoring of migration.
[2024-12-26 16:45] LABS: B Type Natriuretic Peptide 113 pg/mL (<100)
--- NOTE | 2024-12-26 18:46 | PM.EVENT ---
Event Note Date of Service: 12/26/24 Event Note: GI Consult-Full note dictated-History from patient and EMR Imp: Recurrent Iron def anemia. I saw her for this as an inpatient in 02/2024 but due to her chronic LLE infection she was not a candidate for GI procedures at that time. We scheduled them as an outpatient but she had to cancel due to a lapse in health insurance and the leg problem. She comes in now with worsening symptomatic anemia, as well as a severe LLE cellulitis. She is not having any new or worrisome GI complaints and has had multiple colonoscopies with me in the past, with the most recent one in 2019. Rec: I again reviewed with her the need for an eventual EGD and Colonoscopy. At this point she is again not a candidate for a bowel prep due to the severe LLE infection and lack of mobility. I would recommend transfusing her as needed and continuing her PPI and Iron. I advised her that we will try to reschedule the procedures for her at some point when she thinks she will be able to manage them. She understood and was comfortable with that plan. Please call if I can be any further assistance while she is here in the hospital. Thanks Time Spent With Patient Time: Total time managing care of this patient today ____ minutes.
[2024-12-26] MEDS: Gabapentin 100 MG CAPSULE PO (21:57)
[2024-12-26] MEDS: carvediloL 25 MG TABLET PO (21:57)
[2024-12-26] MEDS: cloNIDine HCL 0.1 MG TABLET PO (21:57)
--- NOTE | 2024-12-26 22:43 | HO.SKINPHOTO ---
Location: L leg Category: cellulitis Stage: Length: Width: Depth: cm Location: Category: Stage: Length: Width: Depth: cm Location: Category: Stage: Length: Width: Depth: cm Location: Category: Stage: Length: Width: Depth: cm Location: Category: Stage: Length: Width: Depth: cm Location: Category: Stage: Length: Width: Depth: cm
[2024-12-26] MEDS: vancomycin HCL 500 MG in 0.9 % Sodium Chloride 100 ML 110 MG IV (22:58)
[2024-12-26] MEDS: oxyCODONE HCl Immed Release 5 MG TABLET PO (23:13)
[2024-12-27] VITALS (14 sets, daily range): BP systolic 91–130; BP diastolic 53–80; PULSE 77–89; RESP 16–22; TEMP 36.2–37.3; O2SAT 97–100
--- NOTE | 2024-12-27 03:17 | CONS_ITS ---
DATE OF SERVICE: 12/26/2024 REASON FOR CONSULTATION: Iron-deficiency anemia. HISTORY OF PRESENT ILLNESS: The patient is a 74-year-old female well known to me with a history of iron deficiency anemia. I have known her for the past many years during which she has undergone 3 previous colonoscopies in 2007, 2012, and 2018. The colonoscopy in 2007 revealed a small tubular adenoma that was removed. Colonoscopies in 2012 and were negative. An upper endoscopy in 1998 revealed some reflux but was without any evidence of significant esophagitis or other pathology. I saw her when she was admitted here last February for left lower extremity cellulitis. At that time, she was noted to have a somewhat chronic anemia, but this worsened significantly and required transfusion last February. She was also noted to have a folate deficiency. She was unable to undergo any GI procedures during the hospitalization last February due to poor mobility from the left lower extremity cellulitis. However, the upper endoscopy and colonoscopy were scheduled as an outpatient for further evaluation of the anemia. However, she had to cancel that due to a lapse in her health insurance as well as ongoing issues with her leg. She is now admitted here due to some symptomatic anemia with some shortness of breath, but also severe left lower extremity cellulitis again. She has not noticed any bleeding. She reports that she does take iron daily. However, she denies any melena or change in stool color. She has not noticed any hematochezia. She does take chronic PPI for chronic reflux, but this has been very stable and she denies any significant heartburn, dysphagia, anorexia, nausea, nor vomiting. She denies any abdominal pain, nor any unintentional weight loss. She does not use any NSAIDs nor aspirin. She does not smoke nor use any significant amounts of alcohol. She did have a Hemoccult negative stool last year. MEDICATIONS: On admission included acetaminophen, albuterol inhaler p.r.n., atorvastatin, carvedilol, vitamin D, clonidine, diphenhydramine, ezetimibe, iron, Lasix, gabapentin, oxycodone p.r.n., pantoprazole 40 mg daily, sertraline. PAST MEDICAL HISTORY: Colonoscopies as above. Iron deficiency anemia. Hypertension. Hyperlipidemia. She denies history of diabetes, [place] or stroke. Left knee replacement. Right shoulder surgery. Fractured left ankle with 2 subsequent surgeries and then subsequent chronic issues with infection and edema. COPD. Psoriasis. 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 She is single. FAMILY HISTORY: Noncontributory. REVIEW OF SYSTEMS: CONSTITUTIONAL: She has been feeling poorly in relation to her anemia and ongoing leg issues with infection. CARDIAC: No chest pain. PULMONARY: She did have some shortness of breath in relation to anemia, but no coughing or hemoptysis. GI: As above. URINARY: No dysuria. No hematuria. PHYSICAL EXAMINATION: GENERAL: The patient is a pleasant, alert female. She does have some discomfort in relation to the left lower extremity cellulitis. SKIN: Warm and dry. HEENT: Anicteric sclerae. Moist mucous membranes. ABDOMEN: Soft, nondistended, nontender. LABORATORY DATA: White blood cell count 19.1, hemoglobin 6.4. Hemoglobin was 11.2 back in September. It had been as low as 7.3 in February of 2024. Current MCV is 83. Platelets 259,000. Normal electrolytes. BUN 42, creatinine 1.5. Iron is less than 7. Iron saturation 3%. Ferritin 135. Normal LFTs except for an AST of 162. Albumin 3.5. Stool was Hemoccult negative in 2023. Laboratories for celiac disease were negative back in February of 2024. IMPRESSION: The patient appears stable from a GI standpoint, and is not having any new or worrisome GI complaints. As we reviewed last year, the iron-deficiency anemia does need evaluation with upper endoscopy and colonoscopy to rule out any worrisome process such as neoplasm or other problems such as angiodysplasias, silent ulcer disease, gastritis, or esophagitis. Given all of her previous workups with several colonoscopies and no new lower GI symptoms, I suspect a colonic source such as a colon cancer would be less likely. Nonetheless, I advised that would be important to work this up eventually. However, as it was last year, I do not think she is a candidate for colonoscopy now as she is unable to do a bowel prep given the condition of her left lower leg. I do not think she needs an upper endoscopy urgently given no new upper GI complaints and no signs of upper GI bleeding. As such, we reviewed that hopefully once her leg improves we can reschedule the 2 studies as an outpatient to further evaluate her anemia. We did review that her anemia may very well be partly in relation to this severe infection she has, as well as some renal insufficiency. At this point, I would recommend continuing her iron, transfuse her as needed, and continue her PPI. Of note, she did have a low folate in February of 2024, but this improved after folate repletion to level 14.4 in April 2024. Her B12 level was down to 230 in April 2024, although had been 878 in February 2024. Therefore, I think it might be worthwhile to repeat her B12 level and folate level just to be sure those are stable and not contributing to her current anemia. This has all been discussed with the patient in detail and she is comfortable with that plan. Thanks for the consultation. MD ABBIE Flowers/PING / [phone] MTDPieter
[2024-12-27] MEDS: Omeprazole 20 MG CAPSULE.DR PO (05:36)
[2024-12-27 07:09] LABS: MANUAL DIFF FLAG NO
[2024-12-27 07:30] LABS: Anion Gap 15 (12-20); Blood Urea Nitrogen 43 mg/dL (9-16); Calcium 8.4 mg/dL (8.4-10.2); Carbon Dioxide 21 mmol/L (22-29); Chloride 102 mmol/L (96-108); Creatinine Clr Calc Pharmacy 45.2; Estimated Glomerular Filt Rate 40; Glucose Random 79 mg/dL (60-115); Potassium 3.2 mmol/L (3.3-5.1); Sodium 135 mmol/L (135-145)
[2024-12-27 07:36] LABS: Basophils Percent Auto 0.2 % (0-2); Hematocrit 22.2 % (37.0-47.0); Hemoglobin 7.1 g/dl (12.0-16.0); Imm Gran Abs Auto 0.25 X10*3/uL (0.00-0.03); Imm Gran Pct Auto 1.9 % (0.0-0.4); Lymphocytes Absolute Auto 0.9 X10*3/uL (1.2-4.9); Lymphocytes Percent Auto 6.5 % (20-40); Mean Corpuscular Hemoglobin 27.1 pg (27.0-33.0); Mean Corpuscular Volume 84.7 fL (80.0-98.0); Mean Platelet Volume 11.4 fL (9.4-12.3); Monocytes Percent Auto 7.2 % (2-11); Neutrophils Absolute Auto 11.1 x10*3/uL (2.0-8.3); Neutrophils Percent Auto 84.2 % (45-73); Platelet Count 230 X10*3/uL (160-400); Red Blood Count 2.62 X10*6/uL (4.20-5.50); Red Cell Distribution Width 17.8 % (11.0-16.0); White Blood Count 13.1 X10*3/uL (4.8-10.8)
[2024-12-27 08:06] LABS: Vitamin B12 734 pg/mL (200-900)
[2024-12-27] MEDS: Fluticasone Propionate Nasal 16 GM SPRAY 1 SPRAY NOSTRIL-B (09:05)
[2024-12-27] MEDS: oxyCODONE HCl Immed Release 5 MG TABLET PO ×2 (09:08→22:16)
[2024-12-27] MEDS: Atorvastatin Calcium 80 MG TABLET PO (09:08)
[2024-12-27] MEDS: Sertraline HCL 50 MG TABLET PO (09:08)
[2024-12-27] MEDS: Ferrous Sulfate 324 MG TABLET.DR PO (09:08)
[2024-12-27] MEDS: Ezetimibe 10 MG TABLET PO (09:08)
[2024-12-27] MEDS: carvediloL 25 MG TABLET PO ×2 (09:08→22:16)
[2024-12-27] MEDS: Cholecalciferol (Vitamin D3) 25 MCG TABLET PO (09:08)
[2024-12-27] MEDS: Gabapentin 100 MG CAPSULE PO ×3 (09:08→22:16)
[2024-12-27] MEDS: 0.9 % Sodium Chloride Flush 3 ML SYRINGE IVFLUSH ×2 (09:09→17:08)
[2024-12-27] MEDS: cloNIDine HCL 0.1 MG TABLET PO ×2 (09:09→22:16)
--- NOTE | 2024-12-27 10:30 | MHC.CM.PN ---
IMM 12/27. Pt self-care, lives at home with her mother. Pt uses a walker, and has a chair glide in the home to assist her. Pt will arrange her own transport home at discharge. HCP on file and verified. PCP: Dr. Billie Maguire
--- NOTE | 2024-12-27 10:38 | HO.PM.IMPN ---
Subjective Subjective Date of Service: 12/27/24 Review of Systems Follow up anemia and cellulitis feeling better today still anemic still erythema to LLE Review of Systems: Yes all other systems are reviewed and are negative Constitutional Constitutional: Denies chills and Denies fever(s) Cardiovascular Cardiovascular: Denies chest pain, Denies palpitations and Denies dyspnea Respiratory Respiratory: Denies cough and Denies dyspnea Gastrointestinal Gastrointestinal: Denies abdominal pain Integumentary/Breasts Skin/Breast: Reports dry skin, Reports lesions, Reports erythema, Reports rash and Reports other (Erythema to the Left lower extremity) Patient reports erythema with pain and swelling to the left lower extremity and recurring psoaritic rash to bilat anterior ankle to the top of bilat feet. Endocrine Endocrine: Denies palpitations Physical Exam Vital Signs: Vital Signs: Last Vital Signs Temp 98.1 F 12/27/24 07:27 Pulse 80 12/27/24 07:27 Resp 20 12/27/24 07:27 BP 130/80 12/27/24 07:27 Pulse Ox 100 12/27/24 07:27 O2 Del Method Room Air 12/27/24 07:27 BMI result Body Mass Index 38.3 Skin: General skin exam: dry skin (Psoriatic rash/lesion to bilat anterior foot and ankles), erythema (To left lower extremiity) and other (Bilat lower extremity edema Left>Right) Objective Data Active Medications Acetaminophen (Acetaminophen 325 Mg Tablet) 650 mg PO Q6H PRN PRN Reason: Pain, Mild 1-3,fever,headache Albuterol Sulfate (Albuterol Sulfate 90 Mcg 8 Gm Inhaler) 2 puff INHALE Q6H PRN PRN Reason: Respiratory Distress Atorvastatin Calcium (Atorvastatin Calcium 80 Mg Tablet) 80 mg PO DAILY [facility] Last Admin: 12/27/24 09:08 Dose: 80 mg Documented By: KEI Calcium Carbonate (Calcium Carbonate 750 Mg Tab.Chew) 750 mg PO Q4H PRN PRN Reason: Heartburn Carvedilol (Carvedilol 25 Mg Tablet) 25 mg PO BID [facility]; Protocol Last Admin: 12/27/24 09:08 Dose: 25 mg Documented By: KEI Clonidine HCl (Clonidine Hcl 0.1 Mg Tablet) 0.1 mg PO BID [facility]; Protocol Last Admin: 12/27/24 09:09 Dose: 0.1 mg Documented By: KEI Ezetimibe (Ezetimibe 10 Mg Tablet) 10 mg PO DAILY [facility] Last Admin: 12/27/24 09:08 Dose: 10 mg Documented By: KEI Ferrous Sulfate (Ferrous Sulfate 324 Mg Tablet.) 324 mg PO DAILY [facility] Last Admin: 12/27/24 09:08 Dose: 324 mg Documented By: KEI Fluticasone Propionate (Fluticasone Propionate Nasal 16 Gm [place]) 1 spray NOSTRIL-B BID [facility] Last Admin: 12/27/24 09:05 Dose: 1 spray Documented By: KEI Fluticasone/Vilanterol (Fluticasone/Vilanterol 100/25 Blst.W.Dev) 1 puff INHALE RDAILY [facility] Gabapentin (Gabapentin 100 Mg Capsule) 100 mg PO TID [facility] Last Admin: 12/27/24 09:08 Dose: 100 mg Documented By: KEI Vancomycin HCl 500 mg/ Sodium (Chloride) 110 mls @ 110 mls/hr IV Q12H [facility] Last Infusion: 12/27/24 00:00 Dose: Infused Documented By: [facility] Magnesium Hydroxide (Milk Of Magnesia 30 Ml Oral.Susp) 30 ml PO DAILY PRN PRN Reason: Constipation Melatonin (Melatonin 3 Mg Tablet) 6 mg PO BEDTIME PRN PRN Reason: Insomnia Omeprazole (Omeprazole 20 Mg Capsule.) 20 mg PO DAILY@0630 [facility] Last Admin: 12/27/24 05:36 Dose: 20 mg Documented By: [facility] Oxycodone HCl (Oxycodone Hcl Immed Release 5 Mg Tablet) 5 mg PO Q6H PRN PRN Reason: severe pain (scale score 7-10) Last Admin: 12/27/24 09:08 Dose: 5 mg Documented By: KEI Pharmacy Consult (Consult Rx Vancomycin Dosing) 1 each MISCELLANE DAILY PRN PRN Reason: Consult order Sertraline HCl (Sertraline Hcl 50 Mg Tablet) 50 mg PO DAILY [facility] Last Admin: 12/27/24 09:08 Dose: 50 mg Documented By: KEI Sodium Chloride (0.9 % Sodium Chloride Flush 3 Ml Syringe) 3 ml IVFLUSH QSHIFT [facility] Last Admin: 12/27/24 09:09 Dose: 3 ml Documented By: KEI Vitamin D (Cholecalciferol (Vitamin D3) 25 Mcg Tablet) 25 mcg PO DAILY JOS[facility] Last Admin: 12/27/24 09:08 Dose: 25 mcg Documented By: KEI Labs 12/27/24 06:31 12/27/24 06:31 Labs: Laboratory Results - last 24 hr 12/26/24 12/26/24 12/26/24 12:00 12:15 13:48 MCV 83.1 MCH 25.8 L MCHC 31.1 RDW 18.4 H Plt Count 259 MPV 11.1 Immature Gran % (Auto) 1.4 H Neut % (Auto) 87.6 H Lymph % (Auto) 4.9 L [place] % (Auto) 4.4 Eos % (Auto) 1.5 Baso % (Auto) 0.2 Lymph # (Auto) 0.9 L [place] # (Auto) 0.8 Eos # (Auto) 0.3 Baso # (Auto) 0.0 Abs Immat Gran (auto) 0.26 H Absolute Neuts (auto) 16.7 H Absolute Nucleated RBC 0.000 Nucleated RBC % (auto) 0.0 Hold Purple Top SEE NOTE Hold Blue Top SEE NOTE Anion Gap 15 Estim Creat Clear Calc 40.0 Estimated GFR 35 Random Glucose 96 Lactic Acid 2.3 H* Lactic Acid F/U @ 2Hr Calcium 8.8 Iron < 7 L TIBC 254 % Saturation 3 L Unsat Iron Binding 247 Ferritin 135 Total Bilirubin 0.4 AST 162 H ALT 28 Alkaline Phosphatase 51 B-Natriuretic Peptide Total Protein 7.1 Albumin 3.5 Vitamin B12 Folate Blood Type A Positive Antibody Screen NEGATIVE Crossmatch See Detail 12/26/24 12/27/24 14:59 06:31 MCV 84.7 MCH 27.1 MCHC 32.0 RDW 17.8 H Plt Count 230 MPV 11.4 Immature Gran % (Auto) 1.9 H Neut % (Auto) 84.2 H Lymph % (Auto) 6.5 L [place] % (Auto) 7.2 Eos % (Auto) 0.0 Baso % (Auto) 0.2 Lymph # (Auto) 0.9 L [place] # (Auto) 1.0 Eos # (Auto) 0.0 Baso # (Auto) 0.0 Abs Immat Gran (auto) 0.25 H Absolute Neuts (auto) 11.1 H Absolute Nucleated RBC 0.000 Nucleated RBC % (auto) 0.0 Hold Purple Top Hold Blue Top Anion Gap 15 Estim Creat Clear Calc 45.2 Estimated GFR 40 Random Glucose 79 Lactic Acid Lactic Acid F/U @ 2Hr 1.7 Calcium 8.4 Iron TIBC % Saturation Unsat Iron Binding Ferritin Total Bilirubin AST ALT Alkaline Phosphatase B-Natriuretic Peptide 113 H Total Protein Albumin Vitamin B12 734 Folate 8.0 Blood Type Antibody Screen Crossmatch Assessment and Plan (1) Cellulitis of left leg: Status: Acute Plan This is a 74-year-old female with history of HFpEF, CKD 3, hypertension, COPD, history of trimalleolar fracture status post multiple recurrent episodes of cellulitis of the left lower extremity who presents to the emergency department with redness pain and swelling of the left lower extremity with associated fever and shortness of breath found to have acute on chronic anemia Severe Sepsis due to left leg cellulitis WBC down trending VSS, no fevers on the overnight Lactic acidosis resolved Continue IV vancomycin for celluitis Blood cultures pending-f/u Venous duplex negative for DVT Acute on chronic normocytic anemia Patient denies any overt blood loss Has a history of iron-deficiency and folate deficiency s/p 1 unit PRBC B12, folate WNL- trend H+H GI consult- not a candidate for bowel prep- transfuse as needed, continue PPI and PO Iron IV iron x3 2 units PRBC ordered Hypokalemia Replete and Follow Shortness of breath 2/2 Anemia. Resolved Chest x-ray negative MALLIKA on CKD3 Improving-Creatinine 1.30, baseline around 1-1.2 Avoid nephrotoxins - Home Lasix on hold Monitor BMP-Replete electrolytes as needed CHFpEF Last echo with grade II diastolic dysfunction CXR negative for effusion BNP mildly elevated Lasix on hold for now due to MALLIKA Hypertension Continue clonidine, Coreg Mood disorder continue sertraline HLD Continue statin and Zetia COPD No exacerbation during admission. Continue home inhalers DVT prophylaxis-mechanical devices, early ambulation due to anemia Code status-full code Quality Stroke Does the patient have a stroke diagnosis?: No VTE Prior VTE?: No VTE Risk Level:: Medical - moderate - high VTE Device Contraindication: N/A - Device Ordered VTE Drug Contraindication: Treatment Not Indicated
[2024-12-27] MEDS: vancomycin HCL 500 MG in 0.9 % Sodium Chloride 100 ML 110 MG IV (11:54)
[2024-12-27] MEDS: Potassium Chloride ER 20 MEQ TAB.ER.PRT 40 MEQ PO (12:00)
--- NOTE | 2024-12-27 16:12 | P.CDIM_ITS ---
PROVIDER RESPONSE TEXT: To clarify, the appropriate diagnosis supported by the clinical indicators: Other (explain): no blood loss QUERY TEXT: PHYSICIAN'S DOCUMENTATION REQUEST Date of Query: 12/27/2024 12:31 PM EDT Patient Name: Binta Vidal Admit Date: 12/26/2024 Dear Anyi Torres SPECIAL NEEDS BABYSITTER, A review of the medical record indicates additional documentation may be needed. Please review below and update the documentation accordingly. Clinical Indicators: GI 12/27/24 - Patient with Iron deficiency anemia. Had shortness of breath in relation to anemia and ongoing leg issues with infection. At this point, I would recommend continue her iron, transfusing as needed. Progress note 12/27/24 - Acute on chronic normocytic anemia, patient denies any overt blood loss. Has history of iron-deficiency and folate deficiency. Transfused 1 unit PRBC. IV Iron x 3 2 units PRBC ordered. Based on the above, could you clarify any further specifics with regards to the anemia? Iron deficiency anemia secondary to acute on chronic blood loss Iron deficiency anemia secondary to chronic blood loss Acute blood loss anemia Other (explain) Clinically unable to determine (explain) Thank you, Jeannine Colby, CCS, CDIS Use of terms such as suspected, likely, concern for, or probable (associated with a specific diagnosi s that is being evaluated, monitored, or treated as if it exists) are acceptable and can be coded in the inpatient se tting, when documented at the time of discharge. Please use your independent medical judgment in providing your response. THIS QUERY IS PART OF THE PERMANENT MEDICAL RECORD
--- NOTE | 2024-12-27 22:03 | HE.PHANOTE ---
VANCO DOSE ADJUSTMENT BASED ON SCR OF 1.3 AND LEVEL OF 25 DOSE HELD FOR PM OF 0505 AND NEXT LEVEL AT 05/06 0600. [id number] DOSE PENDING AM LABS
[2024-12-27 22:49] LABS: Hemoglobin 9.3 g/dl (12.0-16.0)
[2024-12-28] VITALS (8 sets, daily range): BP systolic 90–123; BP diastolic 52–61; PULSE 74–82; RESP 16–20; TEMP 36.2–37.4; O2SAT 97–99
[2024-12-28] MEDS: Omeprazole 20 MG CAPSULE.DR PO (05:28)
[2024-12-28 06:26] LABS: Vancomycin Random 20.5 mcg/mL (15-20)
[2024-12-28 06:31] LABS: Anion Gap 14 (12-20); Blood Urea Nitrogen 49 mg/dL (9-16); Calcium 8.3 mg/dL (8.4-10.2); Carbon Dioxide 22 mmol/L (22-29); Chloride 101 mmol/L (96-108); Creatinine Clr Calc Pharmacy 31.1; Estimated Glomerular Filt Rate 26; Glucose Random 99 mg/dL (60-115); Potassium 4.1 mmol/L (3.3-5.1); Sodium 133 mmol/L (135-145)
--- NOTE | 2024-12-28 06:33 | HE.PHANOTE ---
RE: VANCO DOSING Trough came back as 20.5 mg/L (indication is skin infection). Hold dose until another trough @1400 on 12/28/24.
[2024-12-28] MEDS: Fluticasone/Vilanterol 100/25 BLST.W.DEV 1 PUFF INHALE (07:39)
[2024-12-28] MEDS: oxyCODONE HCl Immed Release 5 MG TABLET PO ×2 (08:25→16:15)
[2024-12-28] MEDS: Lactated Ringers 1,000 ML 80 ML IVCONT ×2 (08:25→21:10)
[2024-12-28] MEDS: Ferrous Sulfate 324 MG TABLET.DR PO (08:25)
[2024-12-28] MEDS: carvediloL 25 MG TABLET PO (08:25)
[2024-12-28] MEDS: cloNIDine HCL 0.1 MG TABLET PO (08:25)
[2024-12-28] MEDS: Sertraline HCL 50 MG TABLET PO (08:25)
[2024-12-28] MEDS: Ezetimibe 10 MG TABLET PO (08:26)
[2024-12-28] MEDS: Gabapentin 100 MG CAPSULE PO ×3 (08:26→21:17)
[2024-12-28] MEDS: Atorvastatin Calcium 80 MG TABLET PO (08:26)
[2024-12-28] MEDS: Cholecalciferol (Vitamin D3) 25 MCG TABLET PO (08:26)
[2024-12-28] MEDS: 0.9 % Sodium Chloride Flush 3 ML SYRINGE IVFLUSH ×3 (08:26→22:28)
[2024-12-28] MEDS: Fluticasone Propionate Nasal 16 GM SPRAY 1 SPRAY NOSTRIL-B ×2 (08:27→21:12)
--- NOTE | 2024-12-28 09:19 | P.PNIM_ITS ---
Subjective Subjective Date of Service: 12/28/24 Review of Systems Follow up anemia and cellulitis feeling better today still erythema to LLE Review of Systems: Yes all other systems are reviewed and are negative Constitutional Constitutional: Denies chills and Denies fever(s) Cardiovascular Cardiovascular: Denies chest pain, Denies palpitations and Denies dyspnea Respiratory Respiratory: Denies cough and Denies dyspnea Gastrointestinal Gastrointestinal: Denies abdominal pain Integumentary/Breasts Skin/Breast: Reports dry skin, Reports lesions, Reports erythema, Reports rash and Reports other (Erythema to the Left lower extremity) Patient reports erythema with pain and swelling to the left lower extremity and recurring psoaritic rash to bilat anterior ankle to the top of bilat feet. Endocrine Endocrine: Denies palpitations Physical Exam 2 Vital Signs: Vital Signs: Last Vital Signs Temp 97.1 F 12/28/24 08:00 Pulse 81 12/28/24 08:00 Resp 20 12/28/24 08:00 BP 123/58 L 12/28/24 08:00 Pulse Ox 98 12/28/24 08:00 O2 Del Method Room Air 12/28/24 08:00 BMI result Body Mass Index 38.3 Appearing in no acute distress lung sounds are clear to auscultation heart regular rate rhythm, clear S1, S2 positive bowel sounds, abdomen is soft, nontender neuro patient is alert x3, no focal deficits Objective Data Active Medications Acetaminophen (Acetaminophen 325 Mg Tablet) 650 mg PO Q6H PRN PRN Reason: Pain, Mild 1-3,fever,headache Albuterol Sulfate (Albuterol Sulfate 90 Mcg 8 Gm Inhaler) 2 puff INHALE Q6H PRN PRN Reason: Respiratory Distress Atorvastatin Calcium (Atorvastatin Calcium 80 Mg Tablet) 80 mg PO DAILY [facility] Last Admin: 12/28/24 08:26 Dose: 80 mg Documented By: KEI Calcium Carbonate (Calcium Carbonate 750 Mg Tab.Chew) 750 mg PO Q4H PRN PRN Reason: Heartburn Carvedilol (Carvedilol 25 Mg Tablet) 25 mg PO BID [facility]; Protocol Last Admin: 12/28/24 08:25 Dose: 25 mg Documented By: KEI Clonidine HCl (Clonidine Hcl 0.1 Mg Tablet) 0.1 mg PO BID [facility]; Protocol Last Admin: 12/28/24 08:25 Dose: 0.1 mg Documented By: KEI Ezetimibe (Ezetimibe 10 Mg Tablet) 10 mg PO DAILY [facility] Last Admin: 12/28/24 08:26 Dose: 10 mg Documented By: KEI Ferrous Sulfate (Ferrous Sulfate 324 Mg Tablet.) 324 mg PO DAILY [facility] Last Admin: 12/28/24 08:25 Dose: 324 mg Documented By: KEI Fluticasone Propionate (Fluticasone Propionate Nasal 16 Gm [place]) 1 spray NOSTRIL-B BID [facility] Last Admin: 12/28/24 08:27 Dose: 1 spray Documented By: KEI Fluticasone/Vilanterol (Fluticasone/Vilanterol 100/25 Blst.W.Dev) 1 puff INHALE RDAILY [facility] Last Admin: 12/28/24 07:39 Dose: 1 puff Documented By: ASHER Gabapentin (Gabapentin 100 Mg Capsule) 100 mg PO TID [facility] Last Admin: 12/28/24 08:26 Dose: 100 mg Documented By: KEI Iron Sucrose 100 mg/ Sodium (Chloride) 55 mls @ 220 mls/hr IV ONCE [facility] Stop: 12/29/24 11:59 Vancomycin HCl 750 mg/ Sodium (Chloride) 265 mls @ 265 mls/hr IV Q24H [facility] Lactated Ringer's (Lr) 1,000 mls @ 80 mls/hr IVCONT .[id number] [facility] Last Admin: 12/28/24 08:25 Dose: 80 mls/hr Documented By: KEI Magnesium Hydroxide (Milk Of Magnesia 30 Ml Oral.Susp) 30 ml PO DAILY PRN PRN Reason: Constipation Melatonin (Melatonin 3 Mg Tablet) 6 mg PO BEDTIME PRN PRN Reason: Insomnia Omeprazole (Omeprazole 20 Mg Capsule.) 20 mg PO DAILY@0630 [facility] Last Admin: 12/28/24 05:28 Dose: 20 mg Documented By: [facility] Oxycodone HCl (Oxycodone Hcl Immed Release 5 Mg Tablet) 5 mg PO Q6H PRN PRN Reason: severe pain (scale score 7-10) Last Admin: 12/28/24 08:25 Dose: 5 mg Documented By: KEI Pharmacy Consult (Consult Rx Vancomycin Dosing) 1 each MISCELLANE DAILY PRN PRN Reason: Consult order Sertraline HCl (Sertraline Hcl 50 Mg Tablet) 50 mg PO DAILY [facility] Last Admin: 12/28/24 08:25 Dose: 50 mg Documented By: KEI Sodium Chloride (0.9 % Sodium Chloride Flush 3 Ml Syringe) 3 ml IVFLUSH QSHIFT [facility] Last Admin: 12/28/24 08:26 Dose: 3 ml Documented By: KEI Vitamin D (Cholecalciferol (Vitamin D3) 25 Mcg Tablet) 25 mcg PO DAILY [facility] Last Admin: 12/28/24 08:26 Dose: 25 mcg Documented By: KEI Labs 12/27/24 22:32 12/28/24 06:02 Labs: Laboratory Results - last 24 hr 12/26/24 12/27/24 12/28/24 13:48 20:58 06:02 Anion Gap 14 Estim Creat Clear Calc 31.1 Estimated GFR 26 Random Glucose 99 Calcium 8.3 L Random Vancomycin 25.0 H* 20.5 H Blood Type A Positive Antibody Screen NEGATIVE Crossmatch See Detail Microbiology Microbiology Results: Microbiology 12/26/24 12:15 Blood Culture - Preliminary Blood - Venous No growth after 24 hours. 12/26/24 12:00 Blood Culture - Preliminary Blood - Venous No growth after 24 hours. Assessment and Plan (1) Cellulitis of left leg: Status: Acute Plan 74-year-old female with history of HFpEF, CKD 3, hypertension, COPD, history of trimalleolar fracture status post multiple recurrent episodes of cellulitis of the left lower extremity who presented to the emergency department with redness pain and swelling of the left lower extremity with associated fever and shortness of breath found to have acute on chronic anemia Cellulitis LLE worse today with more pain and edema Blood cultures negative Venous duplex negative for DVT Continue IV vancomycin and add Rocephin ID consult MALLIKA on CKD3 Creatinine 1.89, baseline around 1-1.2 Avoid nephrotoxins - Home Lasix on hold Monitor BMP-Replete electrolytes as needed LR @ 80hr consider nephro consult if no improvement Severe Sepsis due to left leg cellulitis. Sepsis resolved WBC down trending VSS, no fevers on the overnight Lactic acidosis resolved Acute on chronic normocytic anemia Patient denies any overt blood loss Has a history of iron-deficiency and folate deficiency s/p 3 unit PRBC B12, folate WNL GI consult>not a candidate for bowel prep- transfuse as needed, continue PPI and PO Iron IV iron x3 days stable HH today Hypokalemia Replete and Follow Shortness of breath 2/2 Anemia. Resolved Chest x-ray negative CHFpEF Last echo with grade II diastolic dysfunction CXR negative for effusion BNP mildly elevated Lasix on hold for now due to MALLIKA Hypertension Continue clonidine, Coreg Mood disorder continue sertraline HLD Continue statin and Zetia COPD No exacerbation during admission. Continue home inhalers DVT prophylaxis-mechanical devices, early ambulation due to anemia Code status-full code Quality Stroke Does the patient have a stroke diagnosis?: No VTE Prior VTE?: No VTE Risk Level:: Medical - moderate - high VTE Device Contraindication: N/A - Device Ordered VTE Drug Contraindication: Treatment Not Indicated
[2024-12-28] MEDS: Milk of Magnesia 30 ML ORAL.SUSP PO (12:09)
[2024-12-28 14:57] LABS: Vancomycin Random 17.8 mcg/mL (15-20)
--- NOTE | 2024-12-28 17:15 | HE.PHANOTE ---
Vanco level came back at 17.8 on 12/28/24 @1400. dosed vanco at 75o mg q 24 hours with a predicted AUC of 573, patients scr did have an increase from baseline, she is getting iv fluids and we will monitor closely. If renal function is to worsen I would recommend possibility of a different agent
[2024-12-28] MEDS: Linezolid/D5W 600 MG/300 ML PIGGYBACK 300 MG IV (18:21)
--- NOTE | 2024-12-28 22:52 | W.PM.IDCN ---
History of Present Illness Data of Consult Service Date: 12/28/24 Requesting physician: Anyi Torres Primary Care Provider: Billie Maguire MD HPI Reason for consult: left leg redness She presents with left leg swelling and pain for four days. She had trimalleolar fracture in 2021 when she fell and shopping cart fell on her at [employer]. She has had scaling skin areas and redness left foot since. She has some tinea pedis also. Review of Systems Review of Systems: Yes all other systems are reviewed and are negative [facility] Past Medical History Medical History Chronic kidney disease (CKD) stage G3a/A1, moderately decreased glomerular filtration rate (GFR) between 45-59 mL/min/1.73 square meter and albuminuria creatinine ratio less than 30 mg/g (HFpEF) heart failure with preserved ejection fraction Surgical wound breakdown Psoriasis Cellulitis of right ankle Diverticulosis GERD (gastroesophageal reflux disease) Occult fracture Acute CHF Hepatic steatosis COPD (chronic obstructive pulmonary disease) Uncontrolled hypertension HTN (hypertension) Other and unspecified hyperlipidemia Essential hypertension Inguinal hernia Sliding hiatal hernia COPD (chronic obstructive pulmonary disease) Asthma Gout Arthritis Hypercholesteremia Wound cellulitis Family History Family History Father CHF (congestive heart failure) Mother CHF (congestive heart failure) Family history: reviewed and not pertinent Surgical History Surgical History History of ankle surgery Hx of tonsillectomy Hx of rotator cuff surgery History of total left knee replacement Social History Social History Household Members: Family Household Members Other:: lives with mother, Housing: House Do you presently have visiting nurse or other home services: No Alcohol intake: current Alcohol intake frequency: does not drink Alcohol type: wine Comment: pt rings appropriately Patient Tobacco Use Status: Former Tobacco user e-Cigarette/Vaping Use: Never Used Second Hand Smoke Exposure: No Advance Directives Date on File: 12/04/20 service: No Current occupational status: employed 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, 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 Cognitive needs: No Hearing needs: No Vision needs: No Meds Allergies Allergy/AdvReac Type Severity Reaction Status Date / Time shrimp Allergy Severe Anaphylaxis Verified 12/26/24 11:50 Penicillins Allergy Unknown UNKNOWN Verified 12/26/24 11:50 levofloxacin [From Levaquin] Allergy Hypertensio Verified 12/26/24 11:50 n paroxetine [From Paxil] Allergy Unknown Verified 12/26/24 11:50 prochlorperazine Allergy Unknown Verified 12/26/24 11:50 [From Compazine] green grapes Allergy itchy and Uncoded 12/26/24 11:50 rash tripoly phosphate Allergy Anaphylaxis Uncoded 12/26/24 11:50 Active Medications: Current Medications Acetaminophen (Acetaminophen 325 Mg Tablet) 650 mg PO Q6H PRN PRN Reason: Pain, Mild 1-3,fever,headache Albuterol Sulfate (Albuterol Sulfate 90 Mcg 8 Gm Inhaler) 2 puff INHALE Q6H PRN PRN Reason: Respiratory Distress Atorvastatin Calcium (Atorvastatin Calcium 80 Mg Tablet) 80 mg PO DAILY [facility] Last Admin: 12/28/24 08:26 Dose: 80 mg Calcium Carbonate (Calcium Carbonate 750 Mg Tab.Chew) 750 mg PO Q4H PRN PRN Reason: Heartburn Carvedilol (Carvedilol 25 Mg Tablet) 25 mg PO BID [facility]; Protocol Last Admin: 12/28/24 22:25 Dose: Not Given Clonidine HCl (Clonidine Hcl 0.1 Mg Tablet) 0.1 mg PO BID [facility]; Protocol Last Admin: 12/28/24 22:26 Dose: Not Given Ezetimibe (Ezetimibe 10 Mg Tablet) 10 mg PO DAILY [facility] Last Admin: 12/28/24 08:26 Dose: 10 mg Ferrous Sulfate (Ferrous Sulfate 324 Mg Tablet.Dr) 324 mg PO DAILY [facility] Last Admin: 12/28/24 08:25 Dose: 324 mg Fluticasone Propionate (Fluticasone Propionate Nasal 16 Gm [place]) 1 spray NOSTRIL-B BID [facility] Last Admin: 12/28/24 21:12 Dose: 1 spray Fluticasone/Vilanterol (Fluticasone/Vilanterol 100/25 Blst.W.Dev) 1 puff INHALE RDAILY [facility] Last Admin: 12/28/24 07:39 Dose: 1 puff Gabapentin (Gabapentin 100 Mg Capsule) 100 mg PO TID [facility] Last Admin: 12/28/24 21:17 Dose: 100 mg Iron Sucrose 100 mg/ Sodium (Chloride) 55 mls @ 220 mls/hr IV ONCE [facility] Stop: 12/29/24 11:59 Lactated Ringer's (Lr) 1,000 mls @ 80 mls/hr IVCONT .[id number] [facility] Last Admin: 12/28/24 21:10 Dose: 80 mls/hr Linezolid (Zyvox/D5w) 600 mg in 300 mls @ 300 mls/hr IV Q12H [facility] Last Infusion: 12/28/24 21:12 Dose: Infused Magnesium Hydroxide (Milk Of Magnesia 30 Ml Oral.Susp) 30 ml PO DAILY PRN PRN Reason: Constipation Last Admin: 12/28/24 12:09 Dose: 30 ml Melatonin (Melatonin 3 Mg Tablet) 6 mg PO BEDTIME PRN PRN Reason: Insomnia Omeprazole (Omeprazole 20 Mg Capsule.Dr) 20 mg PO DAILY@629 [facility] Last Admin: 12/28/24 05:28 Dose: 20 mg Oxycodone HCl (Oxycodone Hcl Immed Release 5 Mg Tablet) 5 mg PO Q6H PRN PRN Reason: severe pain (scale score 7-10) Last Admin: 12/28/24 16:15 Dose: 5 mg Pharmacy Consult (Consult Rx Vancomycin Dosing) 1 each MISCELLANE DAILY PRN PRN Reason: Consult order Sertraline HCl (Sertraline Hcl 50 Mg Tablet) 50 mg PO DAILY [facility] Last Admin: 12/28/24 08:25 Dose: 50 mg Sodium Chloride (0.9 % Sodium Chloride Flush 3 Ml Syringe) 3 ml IVFLUSH QSHIFT [facility] Last Admin: 12/28/24 22:28 Dose: 3 ml Vitamin D (Cholecalciferol (Vitamin D3) 25 Mcg Tablet) 25 mcg PO DAILY [facility] Last Admin: 12/28/24 08:26 Dose: 25 mcg Home Medications ?Medication ?Instructions ?Recorded ?Confirmed ?Last Taken ?Type pantoprazole 40 mg tablet,delayed 40 mg PO DAILY@0611/17/20 12/26/24 12/25/24 09:00 History release albuterol sulfate 90 mcg/actuation 2 puff inhalation Q6H PRN 08/09/22 12/26/24 Unknown History aerosol inhaler Respiratory Distress diphenhydramine HCl 25 mg capsule 25 mg PO Q6H PRN Allergy Symptoms 08/09/22 12/26/24 10/06/24 08:00 History (Benadryl) furosemide 20 mg tablet 20 mg PO MOWEFR@0900 08/09/22 12/26/24 12/24/24 History sertraline 50 mg tablet 50 mg PO DAILY 12/26/22 12/26/24 12/25/24 09:00 History acetaminophen 325 mg tablet 975 mg PO Q6H PRN Pain, Severe 03/04/24 12/26/24 Unknown History (Pain Scale 7-10) cholecalciferol (vitamin D3) 25 25 mcg PO DAILY 03/04/24 12/26/24 12/25/24 09:00 History mcg (1,000 unit) tablet (Vitamin D3) furosemide 20 mg tablet 40 mg PO SUTUTHSA@0900 03/04/24 12/26/24 12/25/24 09:00 History clonidine HCl 0.1 mg tablet 0.1 mg PO BID 04/16/24 12/26/24 12/25/24 09:00 History fluticasone propionate 50 1 spray intranasal BID 12/26/24 12/26/24 12/25/24 09:00 History mcg/actuation nasal spray,suspension (Flonase Allergy Relief) Physical Exam Vital Signs: Vital Signs: Last Vital Signs Temp 98.6 F 12/28/24 19:17 Pulse 75 12/28/24 19:17 Resp 16 12/28/24 19:17 BP 94/59 L 12/28/24 22:35 Pulse Ox 98 12/28/24 19:17 O2 Del Method Room Air 12/28/24 19:17 BMI result Body Mass Index 38.3 Const: General: cooperative HEENT: Head: Yes normal to inspection Face and sinus: Yes normal facial exam Mouth: Normal oral and palatal mucosa present Teeth and gingiva: dentition normal Eyes: General: appearance normal, both eyes and all related structures Pupils: Equal, round and reactive pupils present Resp: Effort & Inspection: normal respiratory effort Cardio: Rate: regular rate Rhythm: regular rhythm GI: Palpation (GI): Soft to palpation and nontender : General: Yes no CVA tenderness Back/Spine/Pelvis: Back: no CVA tenderness Skin: General skin exam: no rashes or lesions noted Neuro: General: moves all extremities Cranial nerves: Yes Equal, round and reactive pupils present Extrem: Other: scaling skin ankle redness streaking up leg plus 3 edema,pulses intact Psych: Appearance: grossly normal Results Labs 12/27/24 22:32 12/28/24 06:02 Labs: BMP 12/28/24 06:02 Sodium 133 L Potassium 4.1 D Chloride 101 Carbon Dioxide 22 BUN 49 H Creatinine 1.89 H Calcium 8.3 L Microbiology Microbiology Results: Microbiology 12/26/24 12:15 Blood - Venous Blood Culture - Preliminary No growth after 48 hours. 12/26/24 12:00 Blood - Venous Blood Culture - Preliminary No growth after 48 hours. Assessment and Plan (1) Sepsis: Qualifiers: Acute respiratory failure type: unspecified Sepsis acute organ dysfunction status: with acute organ dysfunction Sepsis type: sepsis due to unspecified organism Severe sepsis shock status: without septic shock Status: Acute (2) Cellulitis and abscess of left leg: Status: Acute Plan Switch to linezolid (sertraline low dose so not concerning). Possible 28 days Follow Orthopedics.
[2024-12-29] VITALS (7 sets, daily range): BP systolic 101–143; BP diastolic 53–64; PULSE 71–78; RESP 14–18; TEMP 36.1–36.5; O2SAT 96–100
[2024-12-29] MEDS: oxyCODONE HCl Immed Release 5 MG TABLET PO ×4 (00:53→21:17)
[2024-12-29] MEDS: Omeprazole 20 MG CAPSULE.DR PO (05:44)
[2024-12-29] MEDS: Linezolid/D5W 600 MG/300 ML PIGGYBACK 300 MG IV ×2 (05:44→16:50)
[2024-12-29 07:28] LABS: Hematocrit 26.1 % (37.0-47.0); Hemoglobin 8.5 g/dl (12.0-16.0); Mean Corpuscular HGB Conc 32.6 g/dl (31.0-35.0); Mean Corpuscular Hemoglobin 27.2 pg (27.0-33.0); Mean Corpuscular Volume 83.7 fL (80.0-98.0); Mean Platelet Volume 11.2 fL (9.4-12.3); Platelet Count 289 X10*3/uL (160-400); Red Blood Count 3.12 X10*6/uL (4.20-5.50); Red Cell Distribution Width 18.2 % (11.0-16.0); White Blood Count 14.8 X10*3/uL (4.8-10.8)
[2024-12-29 07:34] LABS: Anion Gap 13 (12-20); Blood Urea Nitrogen 49 mg/dL (9-16); Calcium 8.3 mg/dL (8.4-10.2); Carbon Dioxide 22 mmol/L (22-29); Chloride 102 mmol/L (96-108); Creatinine Clr Calc Pharmacy 32.1; Estimated Glomerular Filt Rate 27; Glucose Random 106 mg/dL (60-115); Potassium 3.9 mmol/L (3.3-5.1); Sodium 133 mmol/L (135-145)
[2024-12-29] MEDS: 0.9 % Sodium Chloride Flush 3 ML SYRINGE IVFLUSH ×3 (07:47→21:13)
[2024-12-29] MEDS: cloNIDine HCL 0.1 MG TABLET PO ×2 (07:47→21:13)
[2024-12-29] MEDS: Sertraline HCL 50 MG TABLET PO (07:47)
[2024-12-29] MEDS: Atorvastatin Calcium 80 MG TABLET PO (07:47)
[2024-12-29] MEDS: carvediloL 25 MG TABLET PO ×2 (07:47→21:13)
[2024-12-29] MEDS: Cholecalciferol (Vitamin D3) 25 MCG TABLET PO (07:47)
[2024-12-29] MEDS: Ezetimibe 10 MG TABLET PO (07:47)
[2024-12-29] MEDS: Ferrous Sulfate 324 MG TABLET.DR PO (07:48)
[2024-12-29] MEDS: Fluticasone Propionate Nasal 16 GM SPRAY 1 SPRAY NOSTRIL-B ×2 (07:48→21:13)
[2024-12-29] MEDS: Lactated Ringers 1,000 ML 80 ML IVCONT ×2 (07:48→22:31)
[2024-12-29] MEDS: Gabapentin 100 MG CAPSULE PO ×3 (07:51→21:13)
[2024-12-29] MEDS: Fluticasone/Vilanterol 100/25 BLST.W.DEV 1 PUFF INHALE (07:59)
--- NOTE | 2024-12-29 08:55 | P.PNIM_ITS ---
Subjective Subjective Date of Service: 12/29/24 Review of Systems Follow up anemia and cellulitis feeling better today still erythema to LLE Review of Systems: Yes all other systems are reviewed and are negative Constitutional Constitutional: Denies chills and Denies fever(s) Cardiovascular Cardiovascular: Denies chest pain, Denies palpitations and Denies dyspnea Respiratory Respiratory: Denies cough and Denies dyspnea Gastrointestinal Gastrointestinal: Denies abdominal pain Integumentary/Breasts Skin/Breast: Reports dry skin, Reports lesions, Reports erythema, Reports rash and Reports other (Erythema to the Left lower extremity) Patient reports erythema with pain and swelling to the left lower extremity and recurring psoaritic rash to bilat anterior ankle to the top of bilat feet. Endocrine Endocrine: Denies palpitations Physical Exam 2 Vital Signs: Vital Signs: Last Vital Signs Temp 97.1 F 12/29/24 07:32 Pulse 77 12/29/24 08:00 Resp 16 12/29/24 08:00 BP 110/55 L 12/29/24 07:32 Pulse Ox 96 12/29/24 07:32 O2 Del Method Room Air 12/29/24 07:32 BMI result Body Mass Index 38.3 Appearing in no acute distress lung sounds are clear to auscultation heart regular rate rhythm, clear S1, S2 positive bowel sounds, abdomen is soft, nontender neuro patient is alert x3, no focal deficits Objective Data Active Medications Acetaminophen (Acetaminophen 325 Mg Tablet) 650 mg PO Q6H PRN PRN Reason: Pain, Mild 1-3,fever,headache Albuterol Sulfate (Albuterol Sulfate 90 Mcg 8 Gm Inhaler) 2 puff INHALE Q6H PRN PRN Reason: Respiratory Distress Atorvastatin Calcium (Atorvastatin Calcium 80 Mg Tablet) 80 mg PO DAILY [facility] Last Admin: 12/29/24 07:47 Dose: 80 mg Documented By: KEI Calcium Carbonate (Calcium Carbonate 750 Mg Tab.Chew) 750 mg PO Q4H PRN PRN Reason: Heartburn Carvedilol (Carvedilol 25 Mg Tablet) 25 mg PO BID [facility]; Protocol Last Admin: 12/29/24 07:47 Dose: 25 mg Documented By: KEI Clonidine HCl (Clonidine Hcl 0.1 Mg Tablet) 0.1 mg PO BID [facility]; Protocol Last Admin: 12/29/24 07:47 Dose: 0.1 mg Documented By: KEI Ezetimibe (Ezetimibe 10 Mg Tablet) 10 mg PO DAILY [facility] Last Admin: 12/29/24 07:47 Dose: 10 mg Documented By: KEI Ferrous Sulfate (Ferrous Sulfate 324 Mg Tablet.) 324 mg PO DAILY [facility] Last Admin: 12/29/24 07:48 Dose: 324 mg Documented By: KEI Fluticasone Propionate (Fluticasone Propionate Nasal 16 Gm [place]) 1 spray NOSTRIL-B BID [facility] Last Admin: 12/29/24 07:48 Dose: 1 spray Documented By: KEI Fluticasone/Vilanterol (Fluticasone/Vilanterol 100/25 Blst.W.Dev) 1 puff INHALE RDAILY [facility] Last Admin: 12/29/24 07:59 Dose: 1 puff Documented By: SAÚL Gabapentin (Gabapentin 100 Mg Capsule) 100 mg PO TID [facility] Last Admin: 12/29/24 07:51 Dose: 100 mg Documented By: KEI Iron Sucrose 100 mg/ Sodium (Chloride) 55 mls @ 220 mls/hr IV ONCE [facility] Stop: 12/29/24 11:59 Lactated Ringer's (Lr) 1,000 mls @ 80 mls/hr IVCONT .[id number] [facility] Last Admin: 12/29/24 07:48 Dose: 80 mls/hr Documented By: KEI Linezolid (Zyvox/D5w) 600 mg in 300 mls @ 300 mls/hr IV Q12H [facility] Last Infusion: 12/29/24 07:51 Dose: Infused Documented By: KEI Magnesium Hydroxide (Milk Of Magnesia 30 Ml Oral.Susp) 30 ml PO DAILY PRN PRN Reason: Constipation Last Admin: 12/28/24 12:09 Dose: 30 ml Documented By: KEI Melatonin (Melatonin 3 Mg Tablet) 6 mg PO BEDTIME PRN PRN Reason: Insomnia Omeprazole (Omeprazole 20 Mg Capsule.) 20 mg PO DAILY@0630 [facility] Last Admin: 12/29/24 05:44 Dose: 20 mg Documented By: RENETTA Oxycodone HCl (Oxycodone Hcl Immed Release 5 Mg Tablet) 5 mg PO Q6H PRN PRN Reason: severe pain (scale score 7-10) Last Admin: 12/29/24 06:42 Dose: 5 mg Documented By: RENETTA Sertraline HCl (Sertraline Hcl 50 Mg Tablet) 50 mg PO DAILY [facility] Last Admin: 12/29/24 07:47 Dose: 50 mg Documented By: KEI Sodium Chloride (0.9 % Sodium Chloride Flush 3 Ml Syringe) 3 ml IVFLUSH QSHIFT [facility] Last Admin: 12/29/24 07:47 Dose: 3 ml Documented By: KEI Vitamin D (Cholecalciferol (Vitamin D3) 25 Mcg Tablet) 25 mcg PO DAILY [facility] Last Admin: 12/29/24 07:47 Dose: 25 mcg Documented By: KEI Labs 12/29/24 06:43 12/29/24 06:43 Labs: Laboratory Results - last 24 hr 12/28/24 12/29/24 13:59 06:43 MCV 83.7 MCH 27.2 MCHC 32.6 RDW 18.2 H Plt Count 289 D MPV 11.2 Absolute Nucleated RBC 0.000 Nucleated RBC % (auto) 0.0 Anion Gap 13 Estim Creat Clear Calc 32.1 Estimated GFR 27 Random Glucose 106 Calcium 8.3 L Random Vancomycin 17.8 Microbiology Microbiology Results: Microbiology 12/26/24 12:15 Blood Culture - Preliminary Blood - Venous No growth after 48 hours. 12/26/24 12:00 Blood Culture - Preliminary Blood - Venous No growth after 48 hours. Assessment and Plan (1) Cellulitis of left leg: Status: Acute Plan 74-year-old female with history of HFpEF, CKD 3, hypertension, COPD, history of trimalleolar fracture status post multiple recurrent episodes of cellulitis of the left lower extremity who presented to the emergency department with redness pain and swelling of the left lower extremity with associated fever and shortness of breath found to have acute on chronic anemia Cellulitis LLE better today Blood cultures negative Venous duplex negative for DVT ID> switch Vancomycin to Linezolid Use arleen wrap for fluid MALLIKA on CKD3. trending down Creatinine 1.83, baseline around 1-1.2 Avoid nephrotoxins - Home Lasix on hold, vanco stopped LR @ 80hr consider nephro consult if no improvement Severe Sepsis due to left leg cellulitis. Sepsis resolved WBC down trending VSS, no fevers on the overnight Lactic acidosis resolved Acute on chronic normocytic anemia Patient denies any overt blood loss Has a history of iron-deficiency and folate deficiency s/p 3 unit PRBC B12, folate WNL GI consult>not a candidate for bowel prep- transfuse as needed, continue PPI and PO Iron IV iron x3 days stable HH today Hypokalemia Replete and Follow Shortness of breath 2/2 Anemia. Resolved Chest x-ray negative CHFpEF Last echo with grade II diastolic dysfunction CXR negative for effusion BNP mildly elevated Lasix on hold for now due to MALLIKA Hypertension Continue clonidine, Coreg Mood disorder continue sertraline HLD Continue statin and Zetia COPD No exacerbation during admission. Continue home inhalers DVT prophylaxis-mechanical devices, early ambulation due to anemia Code status-full code Quality Stroke Does the patient have a stroke diagnosis?: No VTE Prior VTE?: No VTE Risk Level:: Medical - moderate - high VTE Device Contraindication: N/A - Device Ordered VTE Drug Contraindication: Treatment Not Indicated
--- NOTE | 2024-12-29 10:54 | MHC.CM.PN ---
C/O pain & swelling in LLE, on IV Zyvox, Per ROUNDS discussion, Patient is not yet medically cleared for dc. Home is the goal and CM will continue to follow.
[2024-12-30] VITALS (8 sets, daily range): BP systolic 104–118; BP diastolic 54–58; PULSE 69–76; RESP 16–18; TEMP 35.9–36.8; O2SAT 97–99
[2024-12-30] MEDS: Linezolid/D5W 600 MG/300 ML PIGGYBACK 300 MG IV ×2 (05:25→17:15)
[2024-12-30] MEDS: Omeprazole 20 MG CAPSULE.DR PO (05:35)
[2024-12-30] MEDS: Fluticasone/Vilanterol 100/25 BLST.W.DEV 1 PUFF INHALE (07:30)
[2024-12-30] MEDS: carvediloL 25 MG TABLET PO ×2 (08:32→20:08)
[2024-12-30] MEDS: Cholecalciferol (Vitamin D3) 25 MCG TABLET PO (08:32)
[2024-12-30] MEDS: Atorvastatin Calcium 80 MG TABLET PO (08:32)
[2024-12-30] MEDS: Ezetimibe 10 MG TABLET PO (08:33)
[2024-12-30] MEDS: Ferrous Sulfate 324 MG TABLET.DR PO (08:33)
[2024-12-30] MEDS: Fluticasone Propionate Nasal 16 GM SPRAY 1 SPRAY NOSTRIL-B (08:33)
[2024-12-30] MEDS: cloNIDine HCL 0.1 MG TABLET PO ×2 (08:33→20:08)
[2024-12-30] MEDS: Gabapentin 100 MG CAPSULE PO ×3 (08:33→20:08)
[2024-12-30] MEDS: 0.9 % Sodium Chloride Flush 3 ML SYRINGE IVFLUSH ×3 (08:33→20:08)
[2024-12-30] MEDS: Sertraline HCL 50 MG TABLET PO (08:33)
[2024-12-30 09:24] LABS: Hematocrit 27.6 % (37.0-47.0); Hemoglobin 8.7 g/dl (12.0-16.0); Mean Corpuscular HGB Conc 31.5 g/dl (31.0-35.0); Mean Corpuscular Volume 85.7 fL (80.0-98.0); Mean Platelet Volume 10.4 fL (9.4-12.3); Platelet Count 381 X10*3/uL (160-400); Red Blood Count 3.22 X10*6/uL (4.20-5.50); Red Cell Distribution Width 18.4 % (11.0-16.0); White Blood Count 14.1 X10*3/uL (4.8-10.8)
[2024-12-30 09:36] LABS: Anion Gap 13 (12-20); Blood Urea Nitrogen 41 mg/dL (9-16); Calcium 8.5 mg/dL (8.4-10.2); Carbon Dioxide 23 mmol/L (22-29); Chloride 102 mmol/L (96-108); Creatinine Clr Calc Pharmacy 36.5; Estimated Glomerular Filt Rate 31; Glucose Random 121 mg/dL (60-115); Potassium 4.1 mmol/L (3.3-5.1); Sodium 134 mmol/L (135-145)
--- NOTE | 2024-12-30 10:40 | MHC.CM.PN ---
PT is recommending STR/Patient wants home with services; CM will follow.
[2024-12-30] MEDS: oxyCODONE HCl Immed Release 5 MG TABLET PO ×2 (12:03→20:08)
[2024-12-30] MEDS: Lactated Ringers 1,000 ML 80 ML IVCONT (12:41)
--- NOTE | 2024-12-30 15:29 | HO.PM.IMPN ---
Subjective Subjective Date of Service: 12/30/24 Interval History: seen and examined this morning follow up for cellulitis, MALLIKA, anemia slowly improving Review of Systems Review of Systems: Yes all other systems are reviewed and are negative Constitutional Constitutional: Denies chills and Denies fever(s) Cardiovascular Cardiovascular: Denies chest pain Respiratory Respiratory: Denies cough Physical Exam Vital Signs: Vital Signs: Last Vital Signs Temp 98 F 12/30/24 15:17 Pulse 76 12/30/24 15:17 Resp 16 12/30/24 15:17 BP 113/55 L 12/30/24 15:17 Pulse Ox 98 12/30/24 15:17 O2 Del Method Room Air 12/30/24 15:17 BMI result Body Mass Index 38.3 Const: General: cooperative, comfortable, no acute distress, alert and awake Nutritional Appearance: obese Orientation/consciousness: patient oriented x3 Resp: Effort & Inspection: normal respiratory effort, able to speak in complete sentences, no respiratory distress and no use of accessory muscles Cardio: Rate: regular rate GI: Inspection: No distended Palpation (GI): Soft to palpation Skin: Other: left leg with erythema most of lower leg tracking up over knee; chronic skin changes to ankle/top of feet bilaterally Neuro: General: patient oriented x3, moves all extremities and CN's II-XI intact bilaterally Extrem: Other: improving LLE edema Objective Data Active Medications Acetaminophen (Acetaminophen 325 Mg Tablet) 650 mg PO Q6H PRN PRN Reason: Pain, Mild 1-3,fever,headache Albuterol Sulfate (Albuterol Sulfate 90 Mcg 8 Gm Inhaler) 2 puff INHALE Q6H PRN PRN Reason: Respiratory Distress Atorvastatin Calcium (Atorvastatin Calcium 80 Mg Tablet) 80 mg PO DAILY [facility] Last Admin: 12/30/24 08:32 Dose: 80 mg Documented By: RACHEL Calcium Carbonate (Calcium Carbonate 750 Mg Tab.Chew) 750 mg PO Q4H PRN PRN Reason: Heartburn Carvedilol (Carvedilol 25 Mg Tablet) 25 mg PO BID [facility]; Protocol Last Admin: 12/30/24 08:32 Dose: 25 mg Documented By: RACHEL Clonidine HCl (Clonidine Hcl 0.1 Mg Tablet) 0.1 mg PO BID [facility]; Protocol Last Admin: 12/30/24 08:33 Dose: 0.1 mg Documented By: RACHEL Ezetimibe (Ezetimibe 10 Mg Tablet) 10 mg PO DAILY [facility] Last Admin: 12/30/24 08:33 Dose: 10 mg Documented By: RACHEL Ferrous Sulfate (Ferrous Sulfate 324 Mg Tablet.) 324 mg PO DAILY [facility] Last Admin: 12/30/24 08:33 Dose: 324 mg Documented By: RACHEL Fluticasone Propionate (Fluticasone Propionate Nasal 16 Gm [place]) 1 spray NOSTRIL-B BID [facility] Last Admin: 12/30/24 08:33 Dose: 1 spray Documented By: RAHCEL Fluticasone/Vilanterol (Fluticasone/Vilanterol 100/25 Blst.W.Dev) 1 puff INHALE RDAILY [facility] Last Admin: 12/30/24 07:30 Dose: 1 puff Documented By: SAÚL Gabapentin (Gabapentin 100 Mg Capsule) 100 mg PO TID [facility] Last Admin: 12/30/24 08:33 Dose: 100 mg Documented By: RACHEL Lactated Ringer's (Lr) 1,000 mls @ 80 mls/hr IVCONT .[id number] [facility] Last Admin: 12/30/24 12:41 Dose: 80 mls/hr Documented By: RACHEL Linezolid (Zyvox/D5w) 600 mg in 300 mls @ 300 mls/hr IV Q12H [facility] Last Infusion: 12/30/24 07:46 Dose: Infused Documented By: RACHEL Magnesium Hydroxide (Milk Of Magnesia 30 Ml Oral.Susp) 30 ml PO DAILY PRN PRN Reason: Constipation Last Admin: 12/28/24 12:09 Dose: 30 ml Documented By: KEI Melatonin (Melatonin 3 Mg Tablet) 6 mg PO BEDTIME PRN PRN Reason: Insomnia Omeprazole (Omeprazole 20 Mg Capsule.) 20 mg PO DAILY@0630 [facility] Last Admin: 12/30/24 05:35 Dose: 20 mg Documented By: GILMAR Oxycodone HCl (Oxycodone Hcl Immed Release 5 Mg Tablet) 5 mg PO Q6H PRN PRN Reason: severe pain (scale score 7-10) Last Admin: 12/30/24 12:03 Dose: 5 mg Documented By: RACHEL Sertraline HCl (Sertraline Hcl 50 Mg Tablet) 50 mg PO DAILY [facility] Last Admin: 12/30/24 08:33 Dose: 50 mg Documented By: RACHEL Sodium Chloride (0.9 % Sodium Chloride Flush 3 Ml Syringe) 3 ml IVFLUSH QSHIFT [facility] Last Admin: 12/30/24 08:33 Dose: 3 ml Documented By: RACHEL Vitamin D (Cholecalciferol (Vitamin D3) 25 Mcg Tablet) 25 mcg PO DAILY [facility] Last Admin: 12/30/24 08:32 Dose: 25 mcg Documented By: RACHEL Labs 12/30/24 09:15 12/30/24 09:15 Labs: Laboratory Results - last 24 hr 12/30/24 09:15 MCV 85.7 MCH 27.0 MCHC 31.5 RDW 18.4 H Plt Count 381 D MPV 10.4 Absolute Nucleated RBC 0.000 Nucleated RBC % (auto) 0.0 Anion Gap 13 Estim Creat Clear Calc 36.5 Estimated GFR 31 Random Glucose 121 H Calcium 8.5 Assessment and Plan (1) Sepsis: Status: Acute (2) Anemia: Status: Acute (3) Cellulitis of left leg: Status: Acute Plan 74-year-old female with history of HFpEF, CKD 3, hypertension, COPD, history of trimalleolar fracture status post multiple recurrent episodes of cellulitis of the left lower extremity who presented to the emergency department with redness pain and swelling of the left lower extremity with associated fever and shortness of breath found to have acute on chronic anemia Severe Sepsis due to left leg cellulitis. Sepsis resolved WBC down trending VSS, no fevers on the overnight Lactic acidosis resolved Blood cultures negative Venous duplex negative for DVT ID> switch Vancomycin to Linezolid Use arleen wrap for fluid seen by wound care nurse MALLIKA on CKD3. trending down Creatinine trending down hold further IVF due to h/o CHF Acute on chronic normocytic anemia No overt blood loss Has a history of iron-deficiency and folate deficiency s/p 3 unit PRBC and IV iron x 3 days B12, folate WNL GI consult>not a candidate for bowel prep- transfuse as needed, continue PPI and PO Iron stable HH today Hypokalemia resolved with replacement Shortness of breath 2/2 Anemia. Resolved Chest x-ray negative CHFpEF Last echo with grade II diastolic dysfunction CXR negative for effusion BNP mildly elevated Lasix on hold for now due to MALLIKA Hypertension Continue clonidine, Coreg Mood disorder continue sertraline HLD Continue statin and Zetia COPD No exacerbation during admission. Continue home inhalers DVT prophylaxis-mechanical devices, early ambulation due to anemia Code status-full code seen by Physical therapy, recommended short-term rehab versus home with services requires ongoing inpatient stay for management of extensive, left lower extremity, monitoring renal function Quality Stroke Does the patient have a stroke diagnosis?: No VTE Prior VTE?: No VTE Risk Level:: Medical - moderate - high VTE Device Contraindication: N/A - Device Ordered VTE Drug Contraindication: Treatment Not Indicated
--- NOTE | 2024-12-30 17:13 | HO.WOUND ---
Wound Consult: Follow up 74yr old?female admitted [place] [facility] [place] - See progress notes and H&P for detailed history.? Wound consult follow up for Left Leg Cellulitis.? Patient agreeable to assessment and photo documentation.? See chart review for complex history. The patient reports the leg does appear improved in terms of erythema and pain. Etiology: ?Cellulitits Wound Bed: scattered areas of tissue loss, Lateral knee with deep partial thicness tissue loss and lifting epidermal layer noted - clean wound bed, Ankle area noted for small scattered areas with yellow slough noted - evidence of decreased swelling noted. Drainage / Odor: seous drainge noted Edges: ? irregular Mira wound: epidermal sloughing noted - ?red pink warm swollen, tender / painful to touch Pain: pt reports pain Goals of Treatment: ? Elevate - Provider to continue to treat systemically and topical treatment of Medihoney for moisture management and gauze wrap followed by franklin wrap. Medihoney tube left at bedside for continued use. Patient wound benefit from outpt follow up however patient reports she does not have insurance that covers outpt care at this time. Provider aware. Ptient encourgaed to seek treatment for chronic swelling with OT at a Lymphedema clinic when able to. She was also encouraged to use compression therapy such as Edema wear. She reports she would like information provided as she is able to order them out of pocket. Recommendations: 1. Turn and Reposition every 2 hours and as needed for patient comfort.? Use pillows or wedges to support off loading positions. 2. Off Load all bony prominences with use of pillows and heel boots if needed.? Apply Preventative foams where needed. ? 3. Monitor for incontinence and moisture control, use barrier creams when needed for prevention and treatment. 4. Provide adequate and supplemental nutrition.? 5. Order low air loss mattress. Left Leg - Elevate lower legs off of surface of bed with use of pillows.? Cleanse with NS, Pat dry.? Apply vaseline to both legs, apply layer of Medihoney to open wound bed secure with ABD pad, gauze wrap and tape.? Complete with Franklin Wrap while swelling is present. Change every other day. Recommend patient to consider Edema Wear outpt as not available inpatient.? These can be obtained from the following website. [email or web address] Edema Wear Compression Stockings ? Edema Wear compression garments should be applied first thing in the morning and may be removed at night when legs are elevated in bed.? Hand wash and hang dry.? Stockings should be worn from the base of the toes to just below the knee.? Fold over at end to prevent rolling.? They are disposable after about 2 weeks or regular use. Re-consult wound care Nurse for wound deterioration or wound changes.
[2024-12-30] MEDS: Melatonin 3 MG TABLET 6 MG PO (20:08)
[2024-12-31] VITALS (8 sets, daily range): BP systolic 114–144; BP diastolic 57–65; PULSE 68–74; RESP 16–20; TEMP 36.2–36.8; O2SAT 95–100
[2024-12-31] MEDS: Linezolid/D5W 600 MG/300 ML PIGGYBACK 300 MG IV ×2 (06:01→16:57)
[2024-12-31] MEDS: Omeprazole 20 MG CAPSULE.DR PO (06:01)
[2024-12-31] MEDS: Fluticasone/Vilanterol 100/25 BLST.W.DEV 1 PUFF INHALE (07:29)
[2024-12-31] MEDS: oxyCODONE HCl Immed Release 5 MG TABLET PO ×2 (07:57→19:43)
[2024-12-31] MEDS: cloNIDine HCL 0.1 MG TABLET PO ×2 (07:58→19:43)
[2024-12-31] MEDS: Atorvastatin Calcium 80 MG TABLET PO (07:58)
[2024-12-31] MEDS: Ferrous Sulfate 324 MG TABLET.DR PO (07:58)
[2024-12-31] MEDS: Cholecalciferol (Vitamin D3) 25 MCG TABLET PO (07:58)
[2024-12-31] MEDS: Ezetimibe 10 MG TABLET PO (07:58)
[2024-12-31] MEDS: carvediloL 25 MG TABLET PO ×2 (07:58→19:44)
[2024-12-31] MEDS: Sertraline HCL 50 MG TABLET PO (07:58)
[2024-12-31] MEDS: Gabapentin 100 MG CAPSULE PO ×3 (07:59→19:43)
[2024-12-31] MEDS: Fluticasone Propionate Nasal 16 GM SPRAY 1 SPRAY NOSTRIL-B (07:59)
[2024-12-31] MEDS: 0.9 % Sodium Chloride Flush 3 ML SYRINGE IVFLUSH ×3 (08:01→19:44)
[2024-12-31 09:40] LABS: Hematocrit 26.4 % (37.0-47.0); Hemoglobin 8.4 g/dl (12.0-16.0); Mean Corpuscular HGB Conc 31.8 g/dl (31.0-35.0); Mean Corpuscular Hemoglobin 27.2 pg (27.0-33.0); Mean Corpuscular Volume 85.4 fL (80.0-98.0); Mean Platelet Volume 10.7 fL (9.4-12.3); Platelet Count 428 X10*3/uL (160-400); Red Blood Count 3.09 X10*6/uL (4.20-5.50); Red Cell Distribution Width 18.2 % (11.0-16.0); White Blood Count 11.6 X10*3/uL (4.8-10.8)
[2024-12-31 09:55] LABS: Anion Gap 12 (12-20); Blood Urea Nitrogen 32 mg/dL (9-16); Calcium 8.3 mg/dL (8.4-10.2); Carbon Dioxide 23 mmol/L (22-29); Chloride 104 mmol/L (96-108); Estimated Glomerular Filt Rate 37; Glucose Random 111 mg/dL (60-115); Potassium 3.6 mmol/L (3.3-5.1); Sodium 135 mmol/L (135-145)
--- NOTE | 2024-12-31 10:39 | MHC.CM.PN ---
Addendum entered by Leticia Prather 12/31/24 11:36: SNF looked into Patient's insurance and sees no issue with it for STR. Original Note: Per ROUNDS discussion, Patient may be ready for dc today, pending labs; home vs SNF/STR is the tentative plan (Patient stating that there may be an issue with her insurance for STR). CM will follow.
--- NOTE | 2024-12-31 14:39 | MHC.CM.PN ---
CM met with Patient at bedside to discuss dc planning. Patient is eager to get home to her elderly Mother, who she lives with and she is still trying to decide between home with [facility](new) VS STR ([facility]F is her first choice). CM will continue to follow.
--- NOTE | 2024-12-31 16:48 | HO.PM.IMPN ---
Subjective Subjective Date of Service: 12/31/24 Interval History: seen and examined this morning follow up for cellulitis, MALLIKA no overnight events Review of Systems Review of Systems: Yes all other systems are reviewed and are negative Constitutional Constitutional: Denies chills and Denies fever(s) Cardiovascular Cardiovascular: Denies chest pain and Denies palpitations Endocrine Endocrine: Denies palpitations Physical Exam Vital Signs: Vital Signs: Last Vital Signs Temp 97.2 F 12/31/24 15:15 Pulse 73 12/31/24 15:15 Resp 16 12/31/24 15:15 BP 118/57 L 12/31/24 15:15 Pulse Ox 99 12/31/24 15:15 O2 Del Method Room Air 12/31/24 15:15 BMI result Body Mass Index 38.3 Const: General: cooperative, comfortable, no acute distress, alert and awake Nutritional Appearance: obese Orientation/consciousness: patient oriented x3 Resp: Effort & Inspection: normal respiratory effort, able to speak in complete sentences, no respiratory distress and no use of accessory muscles Cardio: Rate: regular rate and tachycardic GI: Inspection: No distended Palpation (GI): Soft to palpation Neuro: General: patient oriented x3, moves all extremities and CN's II-XI intact bilaterally Extrem: Other: improving LLE edema Objective Data Active Medications Acetaminophen (Acetaminophen 325 Mg Tablet) 650 mg PO Q6H PRN PRN Reason: Pain, Mild 1-3,fever,headache Albuterol Sulfate (Albuterol Sulfate 90 Mcg 8 Gm Inhaler) 2 puff INHALE Q6H PRN PRN Reason: Respiratory Distress Atorvastatin Calcium (Atorvastatin Calcium 80 Mg Tablet) 80 mg PO DAILY [facility] Last Admin: 12/31/24 07:58 Dose: 80 mg Documented By: RACHEL Calcium Carbonate (Calcium Carbonate 750 Mg Tab.Chew) 750 mg PO Q4H PRN PRN Reason: Heartburn Carvedilol (Carvedilol 25 Mg Tablet) 25 mg PO BID [facility]; Protocol Last Admin: 12/31/24 07:58 Dose: 25 mg Documented By: RACHEL Clonidine HCl (Clonidine Hcl 0.1 Mg Tablet) 0.1 mg PO BID [facility]; Protocol Last Admin: 12/31/24 07:58 Dose: 0.1 mg Documented By: RACHEL Ezetimibe (Ezetimibe 10 Mg Tablet) 10 mg PO DAILY [facility] Last Admin: 12/31/24 07:58 Dose: 10 mg Documented By: RACHEL Ferrous Sulfate (Ferrous Sulfate 324 Mg Tablet.) 324 mg PO DAILY [facility] Last Admin: 12/31/24 07:58 Dose: 324 mg Documented By: RACHEL Fluticasone Propionate (Fluticasone Propionate Nasal 16 Gm [place]) 1 spray NOSTRIL-B BID [facility] Last Admin: 12/31/24 07:59 Dose: 1 spray Documented By: RACHEL Fluticasone/Vilanterol (Fluticasone/Vilanterol 100/ Blst.W.Dev) 1 puff INHALE RDAILY [facility] Last Admin: 12/31/24 07:29 Dose: 1 puff Documented By: PRETTY Gabapentin (Gabapentin 100 Mg Capsule) 100 mg PO TID [facility] Last Admin: 12/31/24 15:50 Dose: 100 mg Documented By: RACHEL Linezolid (Zyvox/D5w) 600 mg in 300 mls @ 300 mls/hr IV Q12H [facility] Last Infusion: 12/31/24 07:56 Dose: Infused Documented By: RACHEL Magnesium Hydroxide (Milk Of Magnesia 30 Ml Oral.Susp) 30 ml PO DAILY PRN PRN Reason: Constipation Last Admin: 12/28/24 12:09 Dose: 30 ml Documented By: KEI Melatonin (Melatonin 3 Mg Tablet) 6 mg PO BEDTIME PRN PRN Reason: Insomnia Last Admin: 12/30/24 20:08 Dose: 6 mg Documented By: MADDISON Omeprazole (Omeprazole 20 Mg Capsule.) 20 mg PO DAILY@0630 [facility] Last Admin: 12/31/24 06:01 Dose: 20 mg Documented By: MADDISON Oxycodone HCl (Oxycodone Hcl Immed Release 5 Mg Tablet) 5 mg PO Q6H PRN PRN Reason: severe pain (scale score 7-10) Last Admin: 12/31/24 07:57 Dose: 5 mg Documented By: RACHEL Sertraline HCl (Sertraline Hcl 50 Mg Tablet) 50 mg PO DAILY [facility] Last Admin: 12/31/24 07:58 Dose: 50 mg Documented By: HO.RICCIAV Sodium Chloride (0.9 % Sodium Chloride Flush 3 Ml Syringe) 3 ml IVFLUSH QSHIFT [facility] Last Admin: 12/31/24 15:52 Dose: 3 ml Documented By: KARLACILUISA Vitamin D (Cholecalciferol (Vitamin D3) 25 Mcg Tablet) 25 mcg PO DAILY [facility] Last Admin: 12/31/24 07:58 Dose: 25 mcg Documented By: KARLACIAV Labs 12/31/24 09:19 12/31/24 09:19 Labs: Laboratory Results - last 24 hr 12/31/24 09:19 MCV 85.4 MCH 27.2 MCHC 31.8 RDW 18.2 H Plt Count 428 H MPV 10.7 Absolute Nucleated RBC 0.000 Nucleated RBC % (auto) 0.0 Anion Gap 12 Estim Creat Clear Calc 42.0 Estimated GFR 37 Random Glucose 111 Calcium 8.3 L Microbiology Microbiology Results: Microbiology 12/26/24 12:15 Blood Culture - Final Blood - Venous No growth after 5 days. 12/26/24 12:00 Blood Culture - Final Blood - Venous No growth after 5 days. Assessment and Plan (1) Cellulitis of left leg: Status: Acute (2) Anemia: Status: Acute Plan 74-year-old female with history of HFpEF, CKD 3, hypertension, COPD, history of trimalleolar fracture status post multiple recurrent episodes of cellulitis of the left lower extremity who presented to the emergency department with redness pain and swelling of the left lower extremity with associated fever and shortness of breath found to have acute on chronic anemia Severe Sepsis due to left leg cellulitis. Sepsis resolved WBC down trending, no fevers Lactic acidosis resolved Blood cultures negative Venous duplex negative for DVT ID> switch Vancomycin to Linezolid - recommend 28 days of treatment Use arleen wrap for fluid seen by wound care nurse- continue local wound care MALLIKA on CKD3. trending down Creatinine trending down hold further IVF due to h/o CHF can likely begin to resume lasix in am Acute on chronic normocytic anemia No overt blood loss Has a history of iron-deficiency and folate deficiency s/p 3 unit PRBC and IV iron x 3 days B12, folate WNL GI consult>not a candidate for bowel prep- transfuse as needed, continue PPI and PO Iron HH stable Hypokalemia resolved with replacement Shortness of breath 2/2 Anemia. Resolved Chest x-ray negative CHFpEF Last echo with grade II diastolic dysfunction CXR negative for effusion BNP mildly elevated Lasix on hold for now due to MALLIKA Hypertension Continue clonidine, Coreg Mood disorder continue sertraline HLD Continue statin and Zetia COPD No exacerbation during admission. Continue home inhalers DVT prophylaxis-mechanical devices, early ambulation due to anemia Code status-full code seen by Physical therapy, recommended short-term rehab versus home with services requires ongoing inpatient stay for management of extensive, left lower extremity, monitoring renal function Quality Stroke Does the patient have a stroke diagnosis?: No VTE Prior VTE?: No VTE Risk Level:: Medical - moderate - high VTE Device Contraindication: N/A - Device Ordered VTE Drug Contraindication: Treatment Not Indicated
[2024-12-31] MEDS: Melatonin 3 MG TABLET 6 MG PO (19:43)
[2025-01-01] VITALS (7 sets, daily range): BP systolic 119–133; BP diastolic 58–70; PULSE 71–76; RESP 16–20; TEMP 36.2–37.2; O2SAT 96–98
[2025-01-01] MEDS: oxyCODONE HCl Immed Release 5 MG TABLET PO ×2 (05:07→15:31)
[2025-01-01] MEDS: Linezolid/D5W 600 MG/300 ML PIGGYBACK 300 MG IV ×2 (05:07→16:49)
[2025-01-01] MEDS: Omeprazole 20 MG CAPSULE.DR PO (05:07)
[2025-01-01] MEDS: Fluticasone/Vilanterol 100/25 BLST.W.DEV 1 PUFF INHALE (07:42)
[2025-01-01] MEDS: 0.9 % Sodium Chloride Flush 3 ML SYRINGE IVFLUSH ×3 (08:53→20:06)
[2025-01-01] MEDS: cloNIDine HCL 0.1 MG TABLET PO ×2 (08:53→20:05)
[2025-01-01] MEDS: Fluticasone Propionate Nasal 16 GM SPRAY 1 SPRAY NOSTRIL-B ×2 (08:53→20:05)
[2025-01-01] MEDS: Atorvastatin Calcium 80 MG TABLET PO (08:53)
[2025-01-01] MEDS: Ezetimibe 10 MG TABLET PO (08:53)
[2025-01-01] MEDS: Cholecalciferol (Vitamin D3) 25 MCG TABLET PO (08:53)
[2025-01-01] MEDS: carvediloL 25 MG TABLET PO ×2 (08:53→20:07)
[2025-01-01] MEDS: Gabapentin 100 MG CAPSULE PO ×3 (08:53→20:05)
[2025-01-01] MEDS: Sertraline HCL 50 MG TABLET PO (08:53)
[2025-01-01] MEDS: Ferrous Sulfate 324 MG TABLET.DR PO (08:53)
--- NOTE | 2025-01-01 10:51 | HO.PM.IMPN ---
Subjective Subjective Date of Service: 01/01/25 Interval History: seen and examined this morning follow up for cellulitis, MALLIKA no overnight events Review of Systems Review of Systems: Yes all other systems are reviewed and are negative Constitutional Constitutional: Denies chills and Denies fever(s) Cardiovascular Cardiovascular: Denies chest pain and Denies palpitations Endocrine Endocrine: Denies palpitations Physical Exam Vital Signs: Vital Signs: Last Vital Signs Temp 97.9 F 01/01/25 07:33 Pulse 72 01/01/25 07:43 Resp 20 01/01/25 07:43 BP 133/64 01/01/25 07:33 Pulse Ox 97 01/01/25 07:33 O2 Del Method Room Air 01/01/25 07:33 BMI result Body Mass Index 38.3 Appearing in no acute distress lung sounds are clear to auscultation heart regular rate rhythm, clear S1, S2 positive bowel sounds, abdomen is soft, nontender neuro patient is alert x3, no focal deficits Objective Data Active Medications Acetaminophen (Acetaminophen 325 Mg Tablet) 650 mg PO Q6H PRN PRN Reason: Pain, Mild 1-3,fever,headache Albuterol Sulfate (Albuterol Sulfate 90 Mcg 8 Gm Inhaler) 2 puff INHALE Q6H PRN PRN Reason: Respiratory Distress Atorvastatin Calcium (Atorvastatin Calcium 80 Mg Tablet) 80 mg PO DAILY [facility] Last Admin: 01/01/25 08:53 Dose: 80 mg Documented By: RACHEL Calcium Carbonate (Calcium Carbonate 750 Mg Tab.Chew) 750 mg PO Q4H PRN PRN Reason: Heartburn Carvedilol (Carvedilol 25 Mg Tablet) 25 mg PO BID [facility]; Protocol Last Admin: 01/01/25 08:53 Dose: 25 mg Documented By: RACHEL Clonidine HCl (Clonidine Hcl 0.1 Mg Tablet) 0.1 mg PO BID [facility]; Protocol Last Admin: 01/01/25 08:53 Dose: 0.1 mg Documented By: RACHEL Ezetimibe (Ezetimibe 10 Mg Tablet) 10 mg PO DAILY [facility] Last Admin: 01/01/25 08:53 Dose: 10 mg Documented By: RACHEL Ferrous Sulfate (Ferrous Sulfate 324 Mg Tablet.) 324 mg PO DAILY [facility] Last Admin: 01/01/25 08:53 Dose: 324 mg Documented By: RACHEL Fluticasone Propionate (Fluticasone Propionate Nasal 16 Gm [place]) 1 spray NOSTRIL-B BID [facility] Last Admin: 01/01/25 08:53 Dose: 1 spray Documented By: RACHEL Fluticasone/Vilanterol (Fluticasone/Vilanterol 100/25 Blst.W.Dev) 1 puff INHALE RDAILY [facility] Last Admin: 01/01/25 07:42 Dose: 1 puff Documented By: CLARISSE Gabapentin (Gabapentin 100 Mg Capsule) 100 mg PO TID [facility] Last Admin: 01/01/25 08:53 Dose: 100 mg Documented By: RACHEL Linezolid (Zyvox/D5w) 600 mg in 300 mls @ 300 mls/hr IV Q12H [facility] Last Infusion: 01/01/25 06:09 Dose: Infused Documented By: MADDISON Magnesium Hydroxide (Milk Of Magnesia 30 Ml Oral.Susp) 30 ml PO DAILY PRN PRN Reason: Constipation Last Admin: 12/28/24 12:09 Dose: 30 ml Documented By: KEI Melatonin (Melatonin 3 Mg Tablet) 6 mg PO BEDTIME PRN PRN Reason: Insomnia Last Admin: 12/31/24 19:43 Dose: 6 mg Documented By: MADDISON Omeprazole (Omeprazole 20 Mg Capsule.Dr) 20 mg PO DAILY@0630 [facility] Last Admin: 01/01/25 05:07 Dose: 20 mg Documented By: MADDISON Oxycodone HCl (Oxycodone Hcl Immed Release 5 Mg Tablet) 5 mg PO Q6H PRN PRN Reason: severe pain (scale score 7-10) Last Admin: 01/01/25 05:07 Dose: 5 mg Documented By: MADDISON Sertraline HCl (Sertraline Hcl 50 Mg Tablet) 50 mg PO DAILY [facility] Last Admin: 01/01/25 08:53 Dose: 50 mg Documented By: RACHEL Sodium Chloride (0.9 % Sodium Chloride Flush 3 Ml Syringe) 3 ml IVFLUSH QSHIFT [facility] Last Admin: 01/01/25 08:53 Dose: 3 ml Documented By: RACHEL Vitamin D (Cholecalciferol (Vitamin D3) 25 Mcg Tablet) 25 mcg PO DAILY [facility] Last Admin: 01/01/25 08:53 Dose: 25 mcg Documented By: RACHEL Labs 12/31/24 09:19 12/31/24 09:19 Microbiology Microbiology Results: Microbiology 12/26/24 12:15 Blood Culture - Final Blood - Venous No growth after 5 days. 12/26/24 12:00 Blood Culture - Final Blood - Venous No growth after 5 days. Assessment and Plan (1) Cellulitis of left leg: Status: Acute (2) Anemia: Status: Acute Plan 74-year-old female with history of HFpEF, CKD 3, hypertension, COPD, history of trimalleolar fracture status post multiple recurrent episodes of cellulitis of the left lower extremity who presented to the emergency department with redness pain and swelling of the left lower extremity with associated fever and shortness of breath found to have acute on chronic anemia Severe Sepsis due to left leg cellulitis. Sepsis resolved WBC down trending, no fevers Lactic acidosis resolved Blood cultures negative Venous duplex negative for DVT ID> switch Vancomycin to Linezolid - recommend 28 days of treatment Use arleen wrap for fluid seen by wound care nurse- continue local wound care MALLIKA on CKD3. Resolved Creatinine trending down hold further IVF due to h/o CHF resume lasix Acute on chronic normocytic anemia No overt blood loss Has a history of iron-deficiency and folate deficiency s/p 3 unit PRBC and IV iron x 3 days B12, folate WNL GI consult>not a candidate for bowel prep- transfuse as needed, continue PPI and PO Iron HH stable Hypokalemia resolved with replacement Shortness of breath 2/2 Anemia. Resolved Chest x-ray negative CHFpEF Last echo with grade II diastolic dysfunction CXR negative for effusion BNP mildly elevated Lasix on hold for now due to MALLIKA Hypertension Continue clonidine, Coreg Mood disorder continue sertraline HLD Continue statin and Zetia COPD No exacerbation during admission. Continue home inhalers DVT prophylaxis-mechanical devices, early ambulation due to anemia Code status-full code DISPO STR when bed available Quality Stroke Does the patient have a stroke diagnosis?: No VTE Prior VTE?: No VTE Risk Level:: Medical - moderate - high VTE Device Contraindication: N/A - Device Ordered VTE Drug Contraindication: Treatment Not Indicated
[2025-01-01] MEDS: Morphine Sulfate 2 MG/ML CARTRIDGE 1 MG IVPUSH ×2 (11:39→20:21)
--- NOTE | 2025-01-01 13:00 | HO.SKINPHOTO ---
Location: LLE Category: cellulitis Stage: Length: Width: Depth: cm Location: Category: Stage: Length: Width: Depth: cm Location: Category: Stage: Length: Width: Depth: cm Location: Category: Stage: Length: Width: Depth: cm Location: Category: Stage: Length: Width: Depth: cm Location: Category: Stage: Length: Width: Depth: cm
[2025-01-02 03:31] VITALS: BP 127/60; PULSE 72; RESP 16; TEMP 36.2; O2SAT 97
[2025-01-02] MEDS: oxyCODONE HCl Immed Release 5 MG TABLET PO (06:19)
[2025-01-02] MEDS: Omeprazole 20 MG CAPSULE.DR PO (06:19)
[2025-01-02] MEDS: Linezolid/D5W 600 MG/300 ML PIGGYBACK 300 MG IV (06:20)
[2025-01-02 07:23] VITALS: BP 135/66; PULSE 70; RESP 19; TEMP 36.4; O2SAT 96
[2025-01-02] MEDS: Fluticasone/Vilanterol 100/25 BLST.W.DEV 1 PUFF INHALE (07:58)
[2025-01-02 08:01] VITALS: PULSE 74; RESP 18; O2SAT 98
[2025-01-02] MEDS: cloNIDine HCL 0.1 MG TABLET PO (08:03)
[2025-01-02] MEDS: Ferrous Sulfate 324 MG TABLET.DR PO (08:03)
[2025-01-02] MEDS: Sertraline HCL 50 MG TABLET PO (08:03)
[2025-01-02] MEDS: Gabapentin 100 MG CAPSULE PO (08:03)
[2025-01-02] MEDS: Cholecalciferol (Vitamin D3) 25 MCG TABLET PO (08:03)
[2025-01-02] MEDS: carvediloL 25 MG TABLET PO (08:03)
[2025-01-02] MEDS: Ezetimibe 10 MG TABLET PO (08:03)
[2025-01-02] MEDS: Atorvastatin Calcium 80 MG TABLET PO (08:03)
[2025-01-02] MEDS: Fluticasone Propionate Nasal 16 GM SPRAY 1 SPRAY NOSTRIL-B (08:04)
[2025-01-02] MEDS: 0.9 % Sodium Chloride Flush 3 ML SYRINGE IVFLUSH (08:07)
[2025-01-02 08:30] LABS: Anion Gap 13 (12-20); Blood Urea Nitrogen 25 mg/dL (9-16); Calcium 8.3 mg/dL (8.4-10.2); Carbon Dioxide 23 mmol/L (22-29); Chloride 103 mmol/L (96-108); Creatinine Clr Calc Pharmacy 44.9; Estimated Glomerular Filt Rate 40; Glucose Random 132 mg/dL (60-115); Sodium 135 mmol/L (135-145)
--- NOTE | 2025-01-02 11:40 | P.DS_ITS ---
DS: Providers Provider Date of Service: 01/26/25 Date of admission: 12/26/24 13:55 Date of discharge: 01/02/25 Primary care physician: Billie Maguire MD Consults: 12/26/24 13:50 Consult to Gastroenterology Routine Consulting Provider: Deric Aquino Reason for consultation: anemia; iron def Has provider been notified: No 12/28/24 09:21 Consult to Infectious Diseases Routine Consulting Provider: [facility] Reason for consultation: worsening cellulitis 12/30/24 08:27 Consult to Wound Care Routine Reason for consultation: LLE cellulitis DS: Diagnosis Discharge Diagnosis (1) Cellulitis of left leg: Status: Acute (2) Anemia: Status: Acute DS: Summary Hospital Course Hospital Course: 74-year-old female with history of HFpEF, CKD 3, hypertension, COPD, history of trimalleolar fracture status post multiple recurrent episodes of cellulitis of the left lower extremity who presented to the emergency department with redness pain and swelling of the left lower extremity with associated fever and shortness of breath found to have acute on chronic anemia Severe Sepsis due to left leg cellulitis. Sepsis resolved. WBC down trended nicely, no fevers. Lactic acidosis resolved . Blood cultures negative. Venous duplex negative for DVT. Discussed with Infectious Disease provider, switch vancomycin to linezolid with recommendations for total of 28 days of treatment minus the treatment days that she received during hospitalization. May continue to use Franklin wraps for fluid mobilization MALLIKA on CKD3. Resolved. Creatinine trended down. S/p IVF. resume lasix Acute on chronic normocytic anemia. No overt blood loss, Has a history of iron- deficiency and folate deficiency, s/p 3 unit PRBC and IV iron x 3 days. B12, folate WNL. GI consult>not a candidate for bowel prep- transfuse as needed, continue PPI and PO Iron. HH has remained stable Hypokalemia resolved with replacement CHFpEF. Last echo with grade II diastolic dysfunction, CXR negative for effusion BNP mildly elevated, Lasix on hold for now due to MALLIKA initially but can now resume Hypertension. Continue clonidine, Coreg Mood disorder continue sertraline HLD. Continue statin and Zetia COPD. No exacerbation during admission. Continue home inhalers Wound care Recommendations: 1. Turn and Reposition every 2 hours and as needed for patient comfort.? Use pillows or wedges to support off loading positions. 2. Off Load all bony prominences with use of pillows and heel boots if needed.? Apply Preventative foams where needed. ? 3. Monitor for incontinence and moisture control, use barrier creams when needed for prevention and treatment. 4. Provide adequate and supplemental nutrition.? 5. Order low air loss mattress if available at facility . Left Leg - Elevate lower legs off of surface of bed with use of pillows.? Cleanse with NS, Pat dry.? Apply vaseline to both legs, apply layer of Medihoney to open wound bed secure with ABD pad, gauze wrap and tape.? Complete with Franklin Wrap while swelling is present. Change every other day. Recommend patient to consider Edema Wear outpt as not available inpatient.? These can be obtained from the following website. [email or web address] . Edema Wear Compression Stockings ? Edema Wear compression garments should be applied first thing in the morning and may be removed at night when legs are elevated in bed.? Hand wash and hang dry.? Stockings should be worn from the base of the toes to just below the knee.? Fold over at end to prevent rolling.? They are disposable after about 2 weeks or regular use. Time Attestation Discharge Coordination Time (in mins): 42 Quality: Safe Use of Opioids Does Pt have an Active Cancer Diagnosis on the Problem List?: No Quality: Stroke Does the patient have a stroke diagnosis?: No Physical Exam Vital Signs: Vital Signs: Last Vital Signs Temp 97.5 F 01/02/25 07:23 Pulse 74 01/02/25 08:01 Resp 18 01/02/25 08:01 BP 135/66 01/02/25 07:23 Pulse Ox 96 01/02/25 07:23 O2 Del Method Room Air 01/02/25 07:23 BMI result Body Mass Index 38.3 Appearing in no acute distress head is normocephalic atraumatic eyes pupils are PERRLA sclera is anicteric mouth throat mucous membranes are intact and moist neck is supple no lymphadenopathy, no JVD noted lung sounds are clear to auscultation heart regular rate rhythm, clear S1, S2 positive bowel sounds, abdomen is soft, nontender neuro patient is alert x3, no focal deficits LLE edema significantly improved, mild erythema DS: Data Data Completed and Pending Completed studies during hospitalization [Text1]: Procedures Extraction of Left Tibia, Open Approach (08/28/22) Reposition Left Fibula with Internal Fixation Device, Open Approach (08/09/22) Reposition Left Fibula, External Approach (08/09/22) Reposition Left Tibia with Internal Fixation Device, Open Approach (08/09/22) Reposition Left Tibia, External Approach (08/09/22) Transfusion of Nonautologous Red Blood Cells into Peripheral Vein, Percutaneous Approach (03/04/24) Labs on day of discharge: Laboratory Results - last 24 hr 01/02/25 07:23 Hold Purple Top SEE NOTE Sodium 135 Potassium 4.0 Chloride 103 Carbon Dioxide 23 Anion Gap 13 BUN 25 H Creatinine 1.31 Estim Creat Clear Calc 44.9 Estimated GFR 40 Random Glucose 132 H Calcium 8.3 L Discharge Plan Discharge Anticipated Discharge Date/Time: 01/02/25 11:33 Patient Disposition: Xfer SNF Discharge Diagnosis: Severe sepsis secondary to left leg cellulitis MALLIKA on CKD stage 3 Acute on chronic normocytic anemia Hypokalemia Referrals: Billie Maguire MD [Primary Care Provider] - 1 Week Discharge Medications: New linezolid 600 mg tablet 600 mg PO BID 23 Days Qty: 46 0RF cyclobenzaprine 7.5 mg tablet 7.5 mg PO TID PRN (Reason: muscle spasm) 10 Days Qty: 30 0RF acetaminophen [Tylenol] 325 mg tablet 325 mg PO QID Qty: 40 0RF oxycodone 5 mg tablet 5 mg PO Q8H PRN (Reason: pain) Qty: 15 0RF Rx Instructions: Partial Fill upon patient request. Continued (DME) 3 in 1 commode See Rx Instructions .ROUTE .MEDSUPPLY Qty: 1 0RF Rx Instructions: Displaced trimalleolar fracture of left lower leg, initial encounter for closed fracture (DME) Raised toilet seat See Rx Instructions .ROUTE .MEDSUPPLY Qty: 1 0RF Rx Instructions: As directed (DME) Chair Glider See Rx Instructions .ROUTE .MEDSUPPLY Qty: 1 0RF Rx Instructions: As directed Urgent request [facility] RE: Remi Flores Phone number: [phone] ezetimibe 10 mg tablet 10 mg PO DAILY Qty: 90 3RF atorvastatin 80 mg tablet 80 mg PO DAILY Qty: 90 3RF carvedilol 25 mg tablet 25 mg PO BID Qty: 180 3RF ferrous sulfate 325 mg (65 mg iron) tablet 325 mg PO DAILY Qty: 30 0RF furosemide 20 mg Tablet 20 mg PO MOWEFR@0900 diphenhydramine HCl [Benadryl] 25 mg Capsule 25 mg PO Q6H PRN (Reason: Allergy Symptoms) albuterol sulfate 90 mcg/actuation Hfa Aerosol Inhaler 2 puff INHALATION Q6H PRN (Reason: Respiratory Distress) furosemide 20 mg tablet 40 mg PO SUTUTHSA@0900 cholecalciferol (vitamin D3) [Vitamin D3] 25 mcg (1,000 unit) Tablet 25 mcg PO DAILY acetaminophen 325 mg tablet 975 mg PO Q6H PRN (Reason: Pain, Severe (Pain Scale 7-10)) gabapentin 100 mg capsule 100 mg PO TID 14 Days Qty: 42 0RF oxycodone 5 mg tablet 5 mg PO Q6H PRN (Reason: severe pain (scale score 7-10)) Qty: 5 0RF Rx Instructions: Partial Fill upon patient request. fluticasone propionate [Flonase Allergy Relief] 50 mcg/actuation [place],Suspension 1 spray INTRANASAL BID Rx Instructions: administer into each nostril fluticasone propion-salmeterol [Wixela Inhub] 250-50 mcg/dose blister with device 1 inh inhalation BID Qty: 60 1RF epinephrine 0.3 mg/0.3 mL auto-injector 0.3 mg IM Q20M PRN (Reason: anaphylaxis) Qty: 2 0RF Rx Instructions: for 2 doses pantoprazole 40 mg tablet,delayed release (DR/EC) 40 mg PO DAILY@0630 clonidine HCl 0.1 mg tablet 0.1 mg PO BID sertraline 50 mg tablet 50 mg PO DAILY Discharge Orders: Discharge Order (Routine); Ordered 01/02/25 Ordered By: Anyi Torres Diet: Advance to usual diet Activity on Discharge: As tolerated Stand Alone Forms: Patient Portal Discharge page Print Language: Italian Activity Restrictions/Additional Instructions: Topical Wound Care Recommendations: Left Leg - Elevate lower legs off of surface of bed with use of pillows.? Cleanse with NS, Pat dry.? Apply vaseline to both legs, apply layer of Medihoney to open wound bed secure with ABD pad, gauze wrap and tape.? Complete with Franklin Wrap while swelling is present. Change every other day. Recommend patient to consider Edema Wear outpt as not available inpatient.? These can be obtained from the following website. [email or web address] . Edema Wear Compression Stockings ? Edema Wear compression garments should be applied first thing in the morning and may be removed at night when legs are elevated in bed.? Hand wash and hang dry.? Stockings should be worn from the base of the toes to just below the knee.? Fold over at end to prevent rolling.? They are disposable after about 2 weeks or regular use Care Plan Goals: Try scheduled Tylenol and Flexeril as needed for pain Health Concerns: Severe sepsis secondary to left leg cellulitis MALLIKA on CKD stage 3 Acute on chronic normocytic anemia Hypokalemia Plan of Treatment: Follow up with primary care provider as needed Take all medications as prescribed Assessment: See discharge summary
[2025-01-02 12:00] VITALS: BP 128/69; PULSE 73; TEMP 36.4; O2SAT 96
--- NOTE | 2025-01-02 13:07 | MHC.CM.PN ---
IMM given 01/02, pt is medically cleared for discharge to at [facility] today. [facility] transport booked, however pt and her niece concerned of the high cost of the ambulance and stated they would rather have the nice transport her there. Hospitalist ok with niece transporting the pt to [facility]. Pts niece called and arranged their own transport through a private [employer] company chair van as she stated she didn't think she was able to transport her there safely, the chair van arranged by the niece will be here at 4pm. [facility]ine cancelled by this CM.
[2025-01-02] MEDS: Cyclobenzaprine HCl 5 MG TABLET PO (13:28)
[2025-01-02] MEDS: Acetaminophen 325 MG TABLET 650 MG PO (13:28)
--- NOTE | 2025-01-03 12:52 | P.CDIM_ITS ---
PROVIDER RESPONSE TEXT: To clarify, the appropriate diagnosis supported by the clinical indicators: Obesity Due to excess calories QUERY TEXT: PHYSICIAN'S DOCUMENTATION REQUEST Date of Query: 12/29/2024 09:51 AM EDT Patient Name: Binta Vidal Admit Date: 12/26/2024 Dear Anyi Torres HI TEACHER, A review of the medical record indicates additional documentation may be needed. Please review below and update the documentation accordingly. Clinical Indicators: Height: 5ft 4in Weight: 101.1kg BMI: 38.3 If possible, please provide an associated diagnosis related to the abnormal BMI, such as: Obesity Due to excess calories Obesity Drug induced Obesity Due to other cause Specify the other cause Other specified Other (explain) Clinically unable to determine (explain) Thank you, Jeannine Colby, CCS, CDIS Use of terms such as suspected, likely, concern for, or probable (associated with a specific diagnosi s that is being evaluated, monitored, or treated as if it exists) are acceptable and can be coded in the inpatient se tting, when documented at the time of discharge. Please use your independent medical judgment in providing your response. THIS QUERY IS PART OF THE PERMANENT MEDICAL RECORD
--- NOTE | 2025-01-03 12:52 | P.CDIM_ITS ---
PROVIDER RESPONSE TEXT: To clarify, the appropriate diagnosis supported by the clinical indicators: Acute QUERY TEXT: PHYSICIAN'S DOCUMENTATION REQUEST Date of Query: 12/29/2024 09:48 AM EDT Patient Name: Binta Vidal Admit Date: 12/26/2024 Dear Anyi Torres PRINTING PRESS OPERATOR, A review of the medical record indicates additional documentation may be needed. Please review below and update the documentation accordingly. Clinical Indicators: Progress note 12/27/24 - Lactic acidosis resolved. LA 2.3 H* Clarify which of the following accurately represents the acuity of the Lactic acidosis: Possible options might include: Acute Chronic Other (explain) Clinically unable to determine (explain) Thank you, Jeannine Colby, CCS, CDIS Use of terms such as suspected, likely, concern for, or probable (associated with a specific diagnosi s that is being evaluated, monitored, or treated as if it exists) are acceptable and can be coded in the inpatient se tting, when documented at the time of discharge. Please use your independent medical judgment in providing your response. THIS QUERY IS PART OF THE PERMANENT MEDICAL RECORD
== END 2025-01-02 15:56 | disposition skilled nursing facility (03) | DRG 872 ==
LOC: HO.ED 13:17 → HO.EDOVER 13:56 → HO.IMC 20:14
PROVIDERS: Physician Assistant; Admitting Provider Physician Assistant Medical; Emergency Provider Emergency Medicine; PCP Internal Medicine; Visit Provider Nurse Practitioner Acute Care
DX: A41.9 Sepsis, unspecified organism (principal); I13.0 Hypertensive heart and chronic kidney disease with heart failure and stage 1 through stage 4 chronic kidney disease, or unspecified chronic kidney disease; I50.32 Chronic diastolic (congestive) heart failure; L03.116 Cellulitis of left lower limb; N17.9 Acute kidney failure, unspecified; E87.6 Hypokalemia; D63.1 Anemia in chronic kidney disease; L40.9 Psoriasis, unspecified; E66.09 Other obesity due to excess calories; Z68.38 Body mass index [BMI] 38.0-38.9, adult; Z71.3 Dietary counseling and surveillance; F39 Unspecified mood [affective] disorder; E78.5 Hyperlipidemia, unspecified; J44.9 Chronic obstructive pulmonary disease, unspecified; R65.20 Severe sepsis without septic shock; N18.30 Chronic kidney disease, stage 3 unspecified; Z87.891 Personal history of nicotine dependence; Z79.51 Long term (current) use of inhaled steroids; Z79.899 Other long term (current) drug therapy
CPT/HCPCS: 36415; 71045; 80048; 80053; 80202; 82607; 82728; 82746; 83540; 83605; 83880; 85014; 85018; 85025; 85027; 86850; 86900; 86901; 86923; 87040; 93005; 93971; 97116; 97162; 99285; J2020; J2270; J3370; J7120; P9016

== ENCOUNTER → 2024-12-26 11:44 | Outpatient (BNV) | payer SELFPAY | PROVIDERS: Admitting Provider Physician Assistant Medical; Emergency Provider Emergency Medicine; PCP Internal Medicine; Visit Provider Internal Medicine | DX: R53.1 Weakness (principal) | CPT/HCPCS: 93010 ==

== ENCOUNTER → 2024-12-26 13:05 | Outpatient (BNV) | payer SELFPAY | PROVIDERS: Admitting Provider Physician Assistant Medical; Emergency Provider Emergency Medicine; PCP Internal Medicine; Visit Provider Radiology Diagnostic Radiology | DX: L53.9 Erythematous condition, unspecified (principal); R60.0 Localized edema; R06.02 Shortness of breath | CPT/HCPCS: 71045; 93971 ==

== ENCOUNTER → 2024-12-26 13:55 | Outpatient (BNV) | payer SELFPAY | PROVIDERS: Admitting Provider Physician Assistant Medical; Emergency Provider Emergency Medicine; PCP Internal Medicine; Visit Provider Physician Assistant Medical | DX: L03.116 Cellulitis of left lower limb (principal) | CPT/HCPCS: 99223; 99232 ==

== ENCOUNTER → 2024-12-26 13:55 | Outpatient (BNV) | payer SELFPAY | PROVIDERS: Admitting Provider Physician Assistant Medical; Emergency Provider Emergency Medicine; PCP Internal Medicine; Visit Provider Internal Medicine | DX: A41.9 Sepsis, unspecified organism (principal); L03.116 Cellulitis of left lower limb; L02.416 Cutaneous abscess of left lower limb | CPT/HCPCS: 99222 ==

== ENCOUNTER 2025-02-03 17:06 | Emergency (ER) | payer MEDICARE, SELFPAY ==
--- NOTE | ~2025-02-03 | XR_ITS ---
CLINICAL HISTORY: fall, pain Right knee, 2 views COMPARISON: None FINDINGS: No acute fracture. No dislocation. Soft tissue swelling and edema. Mild degenerative bony spurring. No effusion. IMPRESSION: No acute fracture. Soft tissue swelling and edema. This document has been electronically signed by: Donaldo Hodgson MD on 02/03/2025 22:10:14
--- NOTE | ~2025-02-03 | CT_ITS ---
CLINICAL HISTORY: Fall, dizziness CT Cervical Spine WO Contrast COMPARISON: None FINDINGS: No acute fracture or malalignment. Degenerative changes in the spine. Soft tissues are normal. Lung apices are clear. IMPRESSION: No acute findings. This document has been electronically signed by: Donaldo Hodgson MD on 02/03/2025 21:46:42
--- NOTE | ~2025-02-03 | CT_ITS ---
CLINICAL HISTORY: Fall, dizziness CT Head WO Contrast COMPARISON: None FINDINGS: Detail limited by artifacts. No acute intracranial hemorrhage. No evidence of acute infarction. Diffuse cortical volume loss. Nonspecific white matter hypodensities, most commonly associated with chronic microangiopathic changes. No mass-effect or midline shift. No hydrocephalus. Visualized orbits are normal. Small cyst or polyp in the right maxillary sinus. Clear mastoid air cells. No acute fracture. Unremarkable soft tissues. IMPRESSION: No acute intracranial findings. Nonemergent/incidental findings in the report. This document has been electronically signed by: Donaldo Hodgson MD on 02/03/2025 21:55:04
[2025-02-03 17:20] VITALS: BP 168/82; PULSE 89; O2SAT 98
[2025-02-03 17:24] VITALS: BP 142/67; PULSE 83; RESP 20; O2SAT 100; BMI 36.2
[2025-02-03 18:00] VITALS: BP 150/74; PULSE 80; RESP 17; TEMP 36.6; O2SAT 100
--- OUTSIDE RECORDS SUMMARY | 2025-02-03 18:24 | XMS_ITS | Encounter Summary ---
Author Organization [facility], Address [address] [place] [address] Phone Care Team Providers Care Manager Digital Name Role Phone Dai Ortega DO Primary Care Provider [phone] Reason for Visit * Reason Comments Med Refill Encounter Details Date Type Department Care Team (Late st Contact Info) Description 02/26/2021 Refill [facility] [address] [place] [address] Conrad Shah MD [address] [place] [id number] Social History Tobacco Use Types Packs/Day Years [...] on filedocumented in this encounter Care Teams Manager Digital Relationship Specialty Start Date End Date Dai Ortega DO PCP - General 06/29/19 04/24/21 documented as of this encounter
--- NOTE | 2025-02-03 20:42 | ECG_ITS ---
Test Reason : SYNCOPY Blood Pressure : */* mmHG Vent. Rate : 82 BPM Atrial Rate : 82 BPM P-R Int : 134 ms QRS Dur : 98 ms QT Int : 416 ms P-R-T Axes : 66 0 21 degrees QTcB Int : 486 ms Normal sinus rhythm Minimal voltage criteria for LVH, may be normal variant ( Moore product ) Nonspecific ST and T wave abnormality Abnormal ECG When compared with ECG of 26-Dec-2024 12:21, T wave inversion now evident in Lateral leads Referred By: Generic ED Physician Electronically Signed By: NORM THOMSON MD
[2025-02-03 20:43] VITALS: BP 147/61; PULSE 82; RESP 18; TEMP 37.3; O2SAT 100
--- NOTE | 2025-02-03 20:46 | MHC.EDTECH ---
sybil took over care at 1900. PT states she needs to use the bathroom but reports she is unable to bear weight and cannot walk. PT states she is having 10/10 pain in her neck , lower back and right knee. Due to pt not having been seen or have any scan yet, T?W did not change pt to hospital attire. Purewick was placed at this time on the request of the pt. PT is also wearing 2 briefs that she came with.
--- NOTE | 2025-02-03 21:14 | ED_ITS ---
HPI - Fall General Chief Complaint: Fall Stated Complaint: unable to walk after fall on Friday Time Seen by Provider: 02/03/25 21:02 Source: patient and EMS Mode of arrival: EMS Limitations: no limitations History of Present Illness ED Provider: Dr. Ivory Patterson HPI Narrative: Patient comes to the emergency room complaining of right knee pain, fall. According to the patient, 2 days ago, patient was sleeping in the recliner, when she got up to go to bed, patient states that everything was spinning for a few sec and fell onto the ground. Patient denies passing out, denies being on blood thinners, no chest pain or shortness of breath. Patient states that it took her about 3 hours to get off the floor because her right knee hurts. Patient states that she did not hit her head, no loss of consciousness, denies being on blood thinners. Patient states that a few days ago, she got out of rehab. Patient states that she still feels a bit weak. 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 Patient states that she also has muscles on the left side of her back and the neck. Patient states that she might have pulled a muscle while trying to get up. Related Data Home Medications ?Medication ?Instructions ?Recorded ?Confirmed pantoprazole 40 mg tablet,delayed 40 mg PO BID@0630,1630 11/17/20 02/04/25 release albuterol sulfate 90 mcg/actuation 2 puff inhalation Q6H PRN 08/09/22 02/04/25 aerosol inhaler Respiratory Distress sertraline 50 mg tablet 50 mg PO DAILY 12/26/22 02/04/25 cholecalciferol (vitamin D3) 25 25 mcg PO DAILY 03/04/24 02/04/25 mcg (1,000 unit) tablet (Vitamin D3) furosemide 20 mg tablet 40 mg PO DAILY 03/04/24 02/04/25 clonidine HCl 0.1 mg tablet 0.1 mg PO BID 04/16/24 02/04/25 fluticasone propionate 50 1 spray intranasal BID 12/26/24 02/04/25 mcg/actuation nasal spray,suspension (Flonase Allergy Relief) ammonium lactate 5 % lotion 1 appl topical BID 02/04/25 02/04/25 (Lac-Hydrin Five) ascorbic acid (vitamin C) 500 mg 500 mg PO BID 02/04/25 02/04/25 tablet (Vitamin C) epoetin boyd 2,000 unit/mL 2,000 unit subcut WE@1600 02/04/25 02/04/25 injection solution (Epogen) ferrous sulfate 325 mg (65 mg 325 mg PO BID 02/04/25 02/04/25 iron) tablet guaifenesin 600 mg tablet, 600 mg PO BID 02/04/25 02/04/25 extended release 12 hr (Mucinex) lidocaine 4 % topical patch 1 patch topical BID Pain 02/04/25 02/04/25 Previous Rx's ?Medication ?Instructions ?Recorded epinephrine 0.3 mg/0.3 mL 0.3 mg (0.3 mL) IM Q20M PRN 02/23/21 injection, auto-injector anaphylaxis #2 ea fluticasone 250 mcg-salmeterol 50 1 inh inhalation BID #60 ea 02/23/21 mcg/dose blistr powdr for inhalation (Wixela Inhub) 3 in 1 commode #1 ea 09/04/22 Raised toilet seat #1 ea 09/04/22 Chair Glider #1 ea 10/15/22 gabapentin 100 mg capsule 100 mg PO TID 2 weeks #42 caps 10/07/24 atorvastatin 80 mg tablet 80 mg PO DAILY #90 tabs 10/22/24 ezetimibe 10 mg tablet 10 mg PO DAILY #90 tabs 10/22/24 carvedilol 25 mg tablet 25 mg PO BID #180 tabs 11/16/24 linezolid 600 mg tablet 600 mg PO BID 23 days #46 tabs 01/02/25 oxycodone 5 mg tablet 5 mg PO Q8H PRN pain #15 tabs 01/02/25 docusate sodium 100 mg capsule 100 mg PO BID #20 caps 02/05/25 (Colace) oxycodone 5 mg tablet 5 mg PO Q6H PRN severe pain (scale 02/05/25 score 7-10) #10 tabs Allergies Allergy/AdvReac Type Severity Reaction Status Date / Time shrimp Allergy Severe Anaphylaxis Verified 02/03/25 17:28 Penicillins Allergy Unknown UNKNOWN Verified 02/03/25 17:28 levofloxacin [From Levaquin] Allergy Hypertensio Verified 02/03/25 17:28 n paroxetine [From Paxil] Allergy Unknown Verified 02/03/25 17:28 prochlorperazine Allergy Unknown Verified 02/03/25 17:28 [From Compazine] green grapes Allergy itchy and Uncoded 02/03/25 17:28 rash tripoly phosphate Allergy Anaphylaxis Uncoded 02/03/25 17:28 Review of Systems 2 Review of Systems: Constitutional : No Weight loss, No Fever, No Chills, No Night Sweats, No Fatigue, No Malaise ENT/Mouth : No Hearing loss, No Ear Pain, No Nasal Congestion, No Sinus Pain, No Hoarseness, No sore throat, No Rhinorrhea, No Swallowing Difficulty Eyes: No Eye Pain, No Swelling, No Redness, No Foreign Body, No Discharge, No Vision Changes Cardiovascular : No Chest Pain, No SOB, No Dyspnea on Exertion, No Orthopnea, No Edema, No Palpitations Respiratory : No Cough, No Sputum, No Wheezing, No Smoke Exposure, No Dyspnea Gastrointestinal : No Nausea, No Vomiting, No Diarrhea, No Constipation, No abdominal Pain, No Hematochezia, No Melena Genitourinary : no irregular bleeding, No Dysuria, No Urinary Frequency, No Hematuria, No Urinary Incontinence, No Urgency, No Flank Pain, No Urinary Flow Changes, No Hesitancy Musculoskeletal : Complaining of right knee pain. Complaining of left back pain and neck pain. Skin : No Skin Lesions, No rash Neuro : No Weakness, No Numbness, No Paresthesias, No Loss of Consciousness, no headache, complaining of 1 episode of dizziness when standing up, self-resolved. Psych : No Anxiety/Panic, No Depression, No SI/HI/AH/VH, No Social Issues, Heme/Lymph: No Bruising, No Bleeding,No Lymphadenopathy Endocrine : No Polyuria, No Polydipsia, No Temperature Intolerance PMFSH Past Medical History Medical History Anemia Chronic kidney disease (CKD) stage G3a/A1, moderately decreased glomerular filtration rate (GFR) between 45-59 mL/min/1.73 square meter and albuminuria creatinine ratio less than 30 mg/g (HFpEF) heart failure with preserved ejection fraction Surgical wound breakdown Psoriasis Cellulitis of right ankle Diverticulosis GERD (gastroesophageal reflux disease) Occult fracture Acute CHF Hepatic steatosis COPD (chronic obstructive pulmonary disease) Uncontrolled hypertension HTN (hypertension) Other and unspecified hyperlipidemia Essential hypertension Inguinal hernia Sliding hiatal hernia COPD (chronic obstructive pulmonary disease) Asthma Gout Arthritis Hypercholesteremia Wound cellulitis Surgical History History of ankle surgery Hx of tonsillectomy Hx of rotator cuff surgery History of total left knee replacement Family History Family History Father CHF (congestive heart failure) Mother CHF (congestive heart failure) Social History Social History Household Members: Family Household Members Other:: lives with mother, Housing: House Do you presently have visiting nurse or other home services: No Alcohol intake: current Alcohol intake frequency: does not drink Alcohol type: wine Comment: pt rings appropriately Patient Tobacco Use Status: Former Tobacco user e-Cigarette/Vaping Use: Never Used Second Hand Smoke Exposure: No Advance Directives Date on File: 12/04/20 service: No Current occupational status: employed 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 Oriented X3. No acute distress. Eyes: Pupils equal, round and reactive to light. ENT: Pharynx normal. Neck: Normal inspection. Neck supple. No lymph nodes noted. No crepitus CVS: Normal heart rate and rhythm. Pulses normal. Normal S1 and S2 Respiratory: No respiratory distress. Breath sounds normal. No Wheezing. No rales Abdomen: Soft and nontender. No rigidity. No distention. Skin: Skin warm and dry. Normal skin color. Normal skin turgor. Extremities: Bilaterally +2 pitting edema, per patient at baseline/chronic. No Lacerations. No Rash. Patient unable to flex the knee due to pain. Neuro: Oriented X 3. No motor deficit. No sensory deficit. Moving all extremities. No slurred speech. CN 2 through 12 grossly intact Psych: calm, cooperative, normal affect Course Course Course Narrative: Patient reports falling over 24 hours ago. Now complaining of right knee pain, and muscular back and neck pain. Denies chest pain or shortness of breath, denies syncope or near-syncope. No headache. No blood thinners. All of patient's labs and imaging pending. Reevaluation(s) Reevaluation #1: Time: 09:42 Date: 02/04/25 Provider: CARROL Conde Patient in physician observation for case management needs. No acute events reported overnight.? No current issues or complaints. VS stable. 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 she has no active infection that I can see, UA negative here. Patient is pending PT/CM eval. Will continue to monitor. Reevaluation #2: Time: 10:25 Date: 02/05/25 Provider: CARROL Palacios Patient in physician observation for case management needs. No acute events reported overnight.? No current issues or complaints. VS stable. Patient is pending placement at facility/pending PT/CM eval. Will continue to monitor. Time: 3:35 pm Date: 02/05/25 Provider: CARROL Palacios Patient remained stable throughout the day. Is being transferred today [facility]. Medications Administered Discontinued Medications Generic Name Dose Route Start Last Admin Trade Name Freq PRN Reason Stop Dose Admin Acetaminophen 975 mg 02/04/25 11:23 02/04/25 12:27 Acetaminophen 325 Mg Tablet PO 975 mg Q6H PRN Administration Pain, Severe (Pain Scale 7-10) Ascorbic Acid 500 mg 02/04/25 11:30 02/05/25 09:30 Ascorbic Acid 500 Mg Tablet PO 500 mg BID JOSÉ Administration Atorvastatin Calcium 80 mg 02/04/25 11:30 02/05/25 09:30 Atorvastatin Calcium 80 Mg Tablet PO 80 mg DAILY JOSÉ Administration Carvedilol 25 mg 02/04/25 11:30 02/05/25 09:31 Carvedilol 25 Mg Tablet PO 25 mg BID JOSÉ Administration Protocol Clonidine HCl 0.1 mg 02/04/25 11:30 02/05/25 09:31 Clonidine Hcl 0.1 Mg Tablet PO 0.1 mg BID JOSÉ Administration Protocol Ezetimibe 10 mg 02/04/25 11:30 02/05/25 09:31 Ezetimibe 10 Mg Tablet PO 10 mg DAILY JOSÉ Administration Ferrous Sulfate 324 mg 02/04/25 21:00 02/05/25 09:30 Ferrous Sulfate 324 Mg Tablet. PO 324 mg BID JOSÉ Administration Fluticasone Propionate 1 spray 02/04/25 11:30 02/05/25 09:34 Fluticasone Propionate Nasal 16 Gm Melvin NOSTRIL-B 1 spray BID JOSÉ Administration Fluticasone/Vilanterol 1 puff 02/05/25 08:00 02/05/25 07:55 Fluticasone/Vilanterol / Blst.W.Dev INHALE 1 puff RDAILY [facility] Administration Furosemide 40 mg 02/04/25 11:30 02/05/25 09:30 Furosemide 40 Mg Tablet PO 40 mg DAILY JOSÉ Administration Protocol Gabapentin 100 mg 02/04/25 15:00 02/05/25 09:30 Gabapentin 100 Mg Capsule PO 100 mg TID JOSÉ Administration Linezolid 600 mg 02/04/25 13:00 02/05/25 09:31 Linezolid 600 Mg Tablet PO 600 mg BID JOSÉ Administration Melatonin 9 mg 02/04/25 01:06 02/04/25 01:12 Melatonin 3 Mg Tablet PO 02/04/25 01:07 9 mg ONCE ONE Administration Omeprazole 20 mg 02/04/25 16:30 02/05/25 06:11 Omeprazole 20 Mg Capsule. PO 20 mg BID@0630,1630 [facility] Administration Oxycodone HCl 5 mg 02/04/25 01:06 02/04/25 01:12 Oxycodone Hcl Immed Release 5 Mg Tablet PO 02/04/25 01:07 5 mg ONCE ONE Administration Oxycodone HCl 5 mg 02/04/25 21:02 02/05/25 06:13 Oxycodone Hcl Immed Release 5 Mg Tablet PO 5 mg Q6H PRN Administration Pain, Severe (Pain Scale 7-10) Potassium Chloride 40 meq 02/03/25 22:14 02/03/25 22:35 Potassium Chloride Packet 20 Meq Packet PO 02/03/25 22:15 40 meq ONCE ONE Administration Sertraline HCl 50 mg 02/04/25 11:30 02/05/25 09:31 Sertraline Hcl 50 Mg Tablet PO 50 mg DAILY JOSÉ Administration Vitamin D 25 mcg 02/04/25 11:30 02/05/25 09:30 Cholecalciferol (Vitamin D3) 25 Mcg Tablet PO 25 mcg DAILY JOSÉ Administration Medical Decision Making Medical Decision Making [facility] Narrative: My heart rate 82, no ST segment depression with the patient, no T-wave inversion, QTC 486 My interpretation of labs: Patient's white blood cell count 14 which is chronic for the patient, hemoglobin 8.8, chronic and at baseline for, same 4 hematocrit 26.4, platelets 320. Patient's chemistry shows a potassium of 3.1, was repleted p.o.. Patient's troponin 17.4, which is at patient's baseline. Patient has no chest pain. Urinalysis negative for UTI Patient's x-rays did not show any significant abnormality other than a bit of swelling in the right knee. Normal bone alignment, no fractures or dislocation. Head CT and cervical spine CT did not show any acute abnormality. We tried to get orthostatic vitals for the patient. However, she could not stand up due to pain in the right knee. Overall, patient states that she feels better, it is just the pain in the knee that is bothering her. Patient could not even get up to do orthostatics. Patient is still wants to go home. ET/case management offered but patient states that she has to get home to her mother to take care of her. 23:26: I was informed by the patient's nurse that after multiple attempts, patient was not able to get up due to knee pain. Patient is now under physician observation, PT/case management consult pending Differential Diagnosis Differential Diagnoses: The differential diagnosis associated with the presentation includes (UTI, patellar dislocation, joint effusion, contusion) Admission/Observation Consideration of admission/observation: Escalation of care including admission/observation considered (PT/case management was offered, however patient would like to be discharged home.) Lab Data [facility] Lab Attestation statement: I reviewed the patient's lab results. 02/03/25 21:11 02/03/25 21:11 Labs: Lab Results 02/03/25 02/03/25 02/04/25 Range/Units 20:16 21:11 09:38 WBC 14.0 H (4.8-10.8) X10*3/uL RBC 3.33 L (4.20-5.50) X10*6/uL Hgb 8.8 L (12.0-16.0) g/dl Hct 26.4 L (37.0-47.0) % MCV 79.3 L (80.0-98.0) fL MCH 26.4 L (27.0-33.0) pg MCHC 33.3 (31.0-35.0) g/dl RDW 23.2 H (11.0-16.0) % Plt Count 320 D (160-400) X10*3/uL MPV 9.3 L (9.4-12.3) fL Immature Gran % (Auto) 0.5 H (0.0-0.4) % Neut % (Auto) 80.8 H (45-73) % Lymph % (Auto) 7.1 L (20-40) % [place] % (Auto) 11.3 H (2-11) % Eos % (Auto) 0.1 (0-4) % Baso % (Auto) 0.2 (0-2) % Lymph # (Auto) 1.0 L (1.2-4.9) X10*3/uL [place] # (Auto) 1.6 H (0.1-1.2) X10*3/uL Eos # (Auto) 0.0 (0.0-0.4) X10*3/uL Baso # (Auto) 0.0 (0.0-0.2) X10*3/uL Abs Immat Gran (auto) 0.07 H (0.00-0.03) X10*3/uL Absolute Neuts (auto) 11.3 H (2.0-8.3) x10*3/uL Absolute Nucleated RBC 0.000 (0.0-0.012) X10*3/uL Nucleated RBC % (auto) 0.0 (0.0-0.2) /100WBC Smear Tech's Comments VERIFIED Sodium 136 (135-145) mmol/L Potassium 3.1 L D (3.3-5.1) mmol/L Chloride 93 L (96-108) mmol/L Carbon Dioxide 28 (22-29) mmol/L Anion Gap 18 (12-20) BUN 22 H (9-16) mg/dL Creatinine 1.27 (0.5-1.4) mg/dL Estim Creat Clear Calc 44.5 Estimated GFR 41 Random Glucose 121 H (60-115) mg/dL Calcium 6.8 L D (8.4-10.2) mg/dL Troponin I High Sens 17.4 H D (<3.5-17.0) ng/L Urine Color Yellow Urine Appearance Clear Urine pH 5.5 (5.0-9.0) Ur Specific [place] 1.015 (1.005-1.025) Urine Protein Negative (Neg-Trace) mg/dL Urine Glucose (UA) Negative (Negative) mg/dL Urine Ketones Negative (Negative) mg/dL Urine Blood Negative (Negative) Urine Nitrite Negative (Negative) Ur Leukocyte Esterase Trace H (Negative) Urine RBC 0-2 (0-2) /HPF Urine WBC 0-5 (0-5) /HPF Ur Squamous Epith Cells 3-5 (0-2) /HPF Urine Bacteria None Seen (None Seen) Hyaline Casts 0-2 (0-2) /LPF Influenza Type A (PCR) NEGATIVE (Negative) Influenza Type B (PCR) NEGATIVE (Negative) RSV RNA Qual (PCR) NEGATIVE (Negative) SARS-CoV-2 RNA (RT-PCR) NEGATIVE (Negative) Independent Interpretation I performed an independent interpretation of an: Plain X-Ray and CT Scan Radiology Impression Discussion of test interpretation with radiology: I have reviewed the radiologist's reading. Radiologist Impression: No acute fracture or malalignment. Degenerative changes in the spine. Soft tissues are normal. Lung apices are clear. No acute intracranial findings. Nonemergent/incidental findings in the report. No acute fracture. No dislocation. Soft tissue swelling and edema. Mild degenerative bony spurring. No effusion. Discharge Plan Discharge Clinical Impression: Acute knee pain Qualifiers: Laterality: right Qualified Code(s): M25.561 - Pain in right knee Fall Qualifiers: Encounter type: initial encounter Qualified Code(s): W19.XXXA - Unspecified fall, initial encounter Patient Disposition: Xfer [facility] Transfer Details: TO: [facility] Instructions: Knee Pain (ED), Fall Prevention (ED) Additional Instructions: Please follow-up with your primary care physician tomorrow. If you have any worsening or new symptoms, please return to the emergency room or call 911 Oxycodone as directed. Do not drive, operate heavy machinery drink alcohol while taking this medication as it may make you drowsy. This medication is a narcotic and can potentially be addicting. Use with caution. Colace as directed to prevent constipation while taking oxycodone. Follow-up with your primary care provider. Call this week to schedule a follow- up appointment. Return to the emergency department if you have any worsening of symptoms, or any concerns. Get well soon! Prescriptions: New oxycodone 5 mg tablet 5 mg PO Q6H PRN (Reason: severe pain (scale score 7-10)) Qty: 10 0RF Rx Instructions: Partial Fill upon patient request. docusate sodium [Colace] 100 mg capsule 100 mg PO BID Qty: 20 0RF No Action (DME) 3 in 1 commode See Rx Instructions .ROUTE .MEDSUPPLY Qty: 1 0RF Rx Instructions: Displaced trimalleolar fracture of left lower leg, initial encounter for closed fracture (DME) Raised toilet seat See Rx Instructions .ROUTE .MEDSUPPLY Qty: 1 0RF Rx Instructions: As directed (DME) Chair Glider See Rx Instructions .ROUTE .MEDSUPPLY Qty: 1 0RF Rx Instructions: As directed Urgent request medical supply RE: Remi Flores Phone number: [phone] ezetimibe 10 mg tablet 10 mg PO DAILY Qty: 90 3RF atorvastatin 80 mg tablet 80 mg PO DAILY Qty: 90 3RF carvedilol 25 mg tablet 25 mg PO BID Qty: 180 3RF albuterol sulfate 90 mcg/actuation Hfa Aerosol Inhaler 2 puff INHALATION Q6H PRN (Reason: Respiratory Distress) furosemide 20 mg tablet 40 mg PO DAILY cholecalciferol (vitamin D3) [Vitamin D3] 25 mcg (1,000 unit) Tablet 25 mcg PO DAILY gabapentin 100 mg capsule 100 mg PO TID 14 Days Qty: 42 0RF fluticasone propionate [Flonase Allergy Relief] 50 mcg/actuation Melvin,Suspension 1 spray INTRANASAL BID Rx Instructions: administer into each nostril linezolid 600 mg tablet 600 mg PO BID 23 Days Qty: 46 0RF oxycodone 5 mg tablet 5 mg PO Q8H PRN (Reason: pain) Qty: 15 0RF Rx Instructions: Partial Fill upon patient request. ascorbic acid (vitamin C) [Vitamin C] 500 mg Tablet 500 mg PO BID ferrous sulfate 325 mg (65 mg iron) tablet 325 mg PO BID Epogen 2,000 unit/mL Solution 2,000 unit SUBCUT WE@1600 lidocaine 4 % Adhesive Patch,Medicated 1 patch TOPICAL BID guaifenesin [Mucinex] 600 mg Tablet Extended Release 12hr 600 mg PO BID Lac-Hydrin Five 5 % Lotion 1 appl TOPICAL BID fluticasone propion-salmeterol [Wixela Inhub] 250-50 mcg/dose blister with device 1 inh inhalation BID Qty: 60 1RF epinephrine 0.3 mg/0.3 mL auto-injector 0.3 mg IM Q20M PRN (Reason: anaphylaxis) Qty: 2 0RF Rx Instructions: for 2 doses pantoprazole 40 mg tablet,delayed release (DR/EC) 40 mg PO BID@0630,1630 clonidine HCl 0.1 mg tablet 0.1 mg PO BID sertraline 50 mg tablet 50 mg PO DAILY Referrals: Yoselin Grant [facility] [Outside] ([address] [place] [address] ) Billie Maguire MD [Primary Care Provider] - Interventions: ED Discharge Assessment Last Done: 02/05/25 15:16 Discharge Date/Time: 02/05/25 15:17 Print Language: Divehi
[2025-02-03 21:19] LABS: Appearance Urine Clear; Color Urine Yellow; Glucose Urine UA Negative (Negative); Leukocyte Esterase Urine Trace (Negative); Nitrite Urine Negative (Negative); PH 5.5 (5.0-9.0); Specific Gravity - Urine 1.015 (1.005-1.025); UMIC TRIGGER UACC YES; Urine Blood Negative (Negative); Urine Ketones Negative (Negative); Urine Protein Negative (Neg-Trace)
[2025-02-03 21:19] LABS: Basophils Percent Auto 0.2 % (0-2); Eosinophils Percent Auto 0.1 % (0-4); Hematocrit 26.4 % (37.0-47.0); Hemoglobin 8.8 g/dl (12.0-16.0); Imm Gran Abs Auto 0.07 X10*3/uL (0.00-0.03); Imm Gran Pct Auto 0.5 % (0.0-0.4); Lymphocytes Percent Auto 7.1 % (20-40); MANUAL DIFF FLAG SCAN; Mean Corpuscular HGB Conc 33.3 g/dl (31.0-35.0); Mean Corpuscular Hemoglobin 26.4 pg (27.0-33.0); Mean Corpuscular Volume 79.3 fL (80.0-98.0); Mean Platelet Volume 9.3 fL (9.4-12.3); Monocytes Absolute Auto 1.6 X10*3/uL (0.1-1.2); Monocytes Percent Auto 11.3 % (2-11); Neutrophils Absolute Auto 11.3 x10*3/uL (2.0-8.3); Neutrophils Percent Auto 80.8 % (45-73); Platelet Count 320 X10*3/uL (160-400); Red Blood Count 3.33 X10*6/uL (4.20-5.50); Red Cell Distribution Width 23.2 % (11.0-16.0); SCAN SMEAR FLAG 1
[2025-02-03 21:32] LABS: Anion Gap 18 (12-20); Blood Urea Nitrogen 22 mg/dL (9-16); Calcium 6.8 mg/dL (8.4-10.2); Carbon Dioxide 28 mmol/L (22-29); Chloride 93 mmol/L (96-108); Creatinine Clr Calc Pharmacy 44.5; Estimated Glomerular Filt Rate 41; Glucose Random 121 mg/dL (60-115); Potassium 3.1 mmol/L (3.3-5.1); Sodium 136 mmol/L (135-145)
[2025-02-03 21:39] LABS: Bacteria Urine None Seen (None Seen); Hyaline Casts Urine 0-2 /LPF (0-2); RBC Urine 0-2 /HPF (0-2); WBC Urine 0-5 /HPF (0-5)
[2025-02-03 21:41] LABS: Troponin-I High Sensitivity 17.4 ng/L (<3.5-17.0)
[2025-02-03 22:23] LABS: SLIDE REVIEW VERIFIED
[2025-02-03] MEDS: Potassium Chloride Packet 20 MEQ PACKET 40 MEQ PO (22:35)
--- NOTE | 2025-02-03 22:49 | PC.NURSE ---
pt medicated per OCT- pt attempting to find transportation home
[2025-02-04] VITALS (9 sets, daily range): BP systolic 113–155; BP diastolic 64–79; PULSE 76–85; RESP 14–18; TEMP 36.2–36.9; O2SAT 97–100
[2025-02-04] MEDS: Melatonin 3 MG TABLET 9 MG PO (01:12)
[2025-02-04] MEDS: oxyCODONE HCl Immed Release 5 MG TABLET PO ×2 (01:12→21:38)
--- NOTE | 2025-02-04 01:15 | PC.NURSE ---
Pt medicated per oct, pt changed over into hospital attire and pure wick in place, bed alarm at the bedside.
--- NOTE | 2025-02-04 01:50 | PC.NURSE ---
pt reposition for comfort.
--- NOTE | 2025-02-04 03:50 | PC.NURSE ---
Pt moved from main ED to Overflow Bed 4. Transferred into hospital bed with assistance from ED Techs. A/ox3, speech clear/appropriate, speaking in full sentences, respirations even and unlabored, no increased wob/sob noted, appears in no distress. Denies cp/sob. Endorsing R lower calf pain/cramping- medicated by previous RN for pain. Warm packs placed on calf for comfort with good effect. Pt able to rest comfortably/decreased cramping. Pillows placed under legs/hips to offload bony prominences. Denies head/neck pain at this time- endorsing soreness in neck/lower back. Skin assessment done- no redness/possible breakdown areas noted on skin. Purewick in place, linens dry and intact. Med rec completed by this RN with paperwork from recent STR admission- pt confirmed she is still taking these medications. Message sent to provider for home medications to be ordered. Resting in bed quietly, pt updated on plan of care, all needs met at this time.
--- NOTE | 2025-02-04 07:55 | MHC.EDTECH ---
Patient refused to eat her breakfast and she said I want to go home TAMIKA kincaid.
[2025-02-04 10:21] LABS: Influenza A PCR NEGATIVE (Negative); Influenza B PCR NEGATIVE (Negative); Resp Syncy Virus RNA Qual PCR NEGATIVE (Negative); SARS COV2 PCR INHOUSE NEGATIVE (Negative)
[2025-02-04] MEDS: Atorvastatin Calcium 80 MG TABLET PO (12:27)
[2025-02-04] MEDS: Ascorbic Acid 500 MG TABLET PO ×2 (12:27→20:53)
[2025-02-04] MEDS: Cholecalciferol (Vitamin D3) 25 MCG TABLET PO (12:27)
[2025-02-04] MEDS: Sertraline HCL 50 MG TABLET PO (12:27)
[2025-02-04] MEDS: Acetaminophen 325 MG TABLET 975 MG PO (12:27)
[2025-02-04] MEDS: carvediloL 25 MG TABLET PO ×2 (12:30→20:53)
[2025-02-04] MEDS: Gabapentin 100 MG CAPSULE PO ×2 (14:12→20:52)
[2025-02-04] MEDS: Linezolid 600 MG TABLET PO ×2 (14:12→20:52)
[2025-02-04] MEDS: Fluticasone Propionate Nasal 16 GM SPRAY 1 SPRAY NOSTRIL-B ×2 (14:13→20:52)
[2025-02-04] MEDS: cloNIDine HCL 0.1 MG TABLET PO ×2 (14:14→21:36)
[2025-02-04] MEDS: Ezetimibe 10 MG TABLET PO (14:14)
--- NOTE | 2025-02-04 14:15 | PHA.MEDREC ---
Addendum entered by Karsten Dennis [facility] 02/04/25 15:22: MED REC CHECKED BY [facility] Original Note: Pharmacy Consult ? Medication Reconciliation Pharmacy reviewed med rec done by nursing. [facility] and utilized that to verify the med rec. Epogen, Lac-Hydrin, Lidocaine Patches and Mucinex not added on the med rec that was on the list; added those since they were being given there.
--- NOTE | 2025-02-04 14:19 | MHC.CM.ED ---
Received case management consult overnight. Patient came to the ER due to difficulty ambulating. Patient was inpatient at [facility] 12/26-01/02 and then transferred to the [facility] until 01/21. Patient was d/c'd home with [facility]. Physical therapy eval completed. Short term rehab is recommended. Met with patient in regards to discharge planning. Patient feels she needs rehab but is concerned because she used 20 Medicare days for STR. She has no secondary insurance. Patient will be required to pay 20% of daily STR costs at a SNF. Patient requesting referral be made to [facility] and back to the [facility]. If neither facility is able to offer a bed, patient will return home with resumption of VNA. [facility]. Continue to monitor for d/c needs.
[2025-02-04] MEDS: Omeprazole 20 MG CAPSULE.DR PO (16:29)
--- NOTE | 2025-02-04 18:42 | PC.NURSE ---
Patient A&O x4, comfortably sleeping, no complains of discomfort.
--- NOTE | 2025-02-04 18:59 | MHC.CM.ED ---
CM spoke with patient's sister at her request. Shaniqua Lawson ([phone]). Requesting an update. She is concerned that her sister should go to rehab and not home. States she has arranged care for her elderly mother at home.
--- NOTE | 2025-02-04 19:50 | PC.NURSE ---
Anyi Neal at bedside speaking with patient.
[2025-02-04] MEDS: Ferrous Sulfate 324 MG TABLET.DR PO (20:52)
--- NOTE | 2025-02-04 21:41 | MHC.CM.ED ---
CM met with patient. [facility] reviewing. CM spoke with patient at length. Per PT eval, pt is no safe to go home if she cannot stand. CM expressed concerns regarding patient's plan to go home with resumption of [facility] services if she cannot ambulate, or even stand. Pt is agreeable to additional referrals made locally. Does not want to go to [facility]. Pt's first choice is [facility]. Pt does have a qualifying stay. Will place additional referrals.
[2025-02-05 06:08] VITALS: BP 104/63; PULSE 78; TEMP 36.8; O2SAT 98
[2025-02-05] MEDS: Omeprazole 20 MG CAPSULE.DR PO (06:11)
[2025-02-05] MEDS: oxyCODONE HCl Immed Release 5 MG TABLET PO (06:13)
[2025-02-05] MEDS: Fluticasone/Vilanterol 100/25 BLST.W.DEV 1 PUFF INHALE (07:55)
[2025-02-05 07:57] VITALS: PULSE 78; RESP 16
[2025-02-05] MEDS: Ferrous Sulfate 324 MG TABLET.DR PO (09:30)
[2025-02-05] MEDS: Furosemide 40 MG TABLET PO (09:30)
[2025-02-05] MEDS: Ascorbic Acid 500 MG TABLET PO (09:30)
[2025-02-05] MEDS: Cholecalciferol (Vitamin D3) 25 MCG TABLET PO (09:30)
[2025-02-05] MEDS: Atorvastatin Calcium 80 MG TABLET PO (09:30)
[2025-02-05] MEDS: Gabapentin 100 MG CAPSULE PO (09:30)
[2025-02-05] MEDS: Linezolid 600 MG TABLET PO (09:31)
[2025-02-05] MEDS: carvediloL 25 MG TABLET PO (09:31)
[2025-02-05] MEDS: cloNIDine HCL 0.1 MG TABLET PO (09:31)
[2025-02-05] MEDS: Sertraline HCL 50 MG TABLET PO (09:31)
[2025-02-05] MEDS: Ezetimibe 10 MG TABLET PO (09:31)
[2025-02-05] MEDS: Fluticasone Propionate Nasal 16 GM SPRAY 1 SPRAY NOSTRIL-B (09:34)
--- NOTE | 2025-02-05 09:35 | PC.NURSE ---
Alert and oriented, medicated per oct, ate well for breakfast
--- NOTE | 2025-02-05 11:04 | MHC.CM.ED ---
Patient remains in ER. [facility] is unable to offer a bed. [facility], [facility], [facility], [facility] and [facility] are able to offer a bed. [facility], [place] [facility], [facility] and [facility] are still reviewing. Spoke with patient about bed offers. Patient accepts bed at [facility]. Per [facility], patient can leave at 3pm. Christine PATINO booked. [facility] with chart. Patient, Ragini LUDNBERG and Venancio BRANHAM aware. Continue to monitor for d/c needs.
--- NOTE | 2025-02-05 12:18 | PC.NURSE ---
Report given to Jacqui LUNDBERG at [facility]
[2025-02-05 14:44] VITALS: BP 97/58; PULSE 80; RESP 16; TEMP 36.6; O2SAT 98
[2025-02-05 15:16] VITALS: BP 97/58; PULSE 80; RESP 16; TEMP 36.6; O2SAT 98
== END 2025-02-05 15:17 | disposition skilled nursing facility (03) ==
PROVIDERS: Physician Assistant; Emergency Provider Emergency Medicine; PCP Internal Medicine
DX: M25.561 Pain in right knee (principal); Z91.81 History of falling; Z03.818 Encounter for observation for suspected exposure to other biological agents ruled out; I13.0 Hypertensive heart and chronic kidney disease with heart failure and stage 1 through stage 4 chronic kidney disease, or unspecified chronic kidney disease; N18.31 Chronic kidney disease, stage 3a; I50.30 Unspecified diastolic (congestive) heart failure; E78.5 Hyperlipidemia, unspecified; J44.9 Chronic obstructive pulmonary disease, unspecified; Z79.02 Long term (current) use of antithrombotics/antiplatelets; Z79.899 Other long term (current) drug therapy
CPT/HCPCS: 0241U; 36415; 70450; 72125; 73560; 80048; 81001; 84484; 85025; 93005; 94640; 97162; 99285

== ENCOUNTER → 2025-02-03 19:51 | Outpatient (BNV) | payer SELFPAY | PROVIDERS: Emergency Provider Emergency Medicine; PCP Internal Medicine; Visit Provider Radiology Diagnostic Radiology | DX: R42 Dizziness and giddiness (principal); W19.XXXA Unspecified fall, initial encounter; R22.41 Localized swelling, mass and lump, right lower limb | CPT/HCPCS: 70450; 72125; 73560 ==

== ENCOUNTER → 2025-02-03 20:42 | Outpatient (BNV) | payer SELFPAY | PROVIDERS: Emergency Provider Emergency Medicine; PCP Internal Medicine; Visit Provider Internal Medicine Cardiovascular Disease | DX: R94.31 Abnormal electrocardiogram [ECG] [EKG] (principal); R55 Syncope and collapse | CPT/HCPCS: 93010 ==

== ENCOUNTER 2025-04-28 23:24 | Emergency (ER) | payer SELFPAY ==
--- OUTSIDE RECORDS SUMMARY | 2024-08-03 06:50 | XMS_ITS ---
Author Organization [facility] Address [address] [place] [phone] Care Team Providers Care Nursing Service Administrator Name Role Phone Billie Maguire MD Primary Care Provider Deric Gambino [phone] REASON FOR VISIT Patient presents today for anemia Encounters Encounter Location Date Provider Diagnosis [facility] [address] [facility] [address] [place] [phone] 08/03/2024 Deric Aquino Plan Of Treatment No Information Progress Notes * RACHEL KELLYDOB:09/1949 (75 yo F)Acc No.[id number]:08/03/2024 Progress Notes Patient: RACHEL OCHOA Provider: Razia Aquino MD :1950 A ge:74 Y S ex:Female Date:08/03/2024 Address:[address] [place], [place] [phone] Pcp:Billie Maguire MD Subjective: * Chief Complaints: [...] 1 10/04/2023 Generated for Printi ng/Faxing/eTransmitting on: 0 04/29/2025 12:08 AM EDT
--- NOTE | ~2025-04-28 | XR_ITS ---
CLINICAL HISTORY: Shortness of Breath 1 view chest x-ray Comparison: CR - XR CHEST 1V - 12/26/24 14:19 EDT Findings: Left retrocardiac patchy opacities/atelectasis. No significant pleural effusion or pneumothorax. Similar prominent/enlarged cardiac silhouette. No acute fracture. IMPRESSION: Left retrocardiac patchy opacities/atelectasis. This document has been electronically signed by: Dejuan Leary MD on 04/29/2025 02:40:13
[2025-04-28 23:39] VITALS: BP 190/83; BP 200/100; PULSE 85; PULSE 86; RESP 16; TEMP 36.8; O2SAT 100; BMI 33.8
[2025-04-28 23:41] VITALS: BP 190/83; PULSE 85; RESP 16; TEMP 36.8; O2SAT 100
--- NOTE | 2025-04-28 23:55 | ED.GENADULT ---
HPI - General Adult General Chief complaint: Dyspnea Stated complaint: worsen SOB, out of Diuretic HTN, 99% RA Time Seen by Provider: 04/28/25 23:54 Source: patient and EMS Mode of arrival: EMS Limitations: no limitations History of Present Illness ED Provider: Guy BRANHAM HPI narrative: The patient is a 75-year-old female with a history of COPD, CHF, CKD, hyperlipidemia, hypertension, and anxiety presenting to the ED for evaluation of increasing shortness of breath over the past 24 hours. The patient reports she normally takes 40 mg of Lasix every Friday and Friday, and 20 mg every Friday per consultation with her drug discovery informatics specialist and turntable operator. The patient reports she ran out of her Lasix today, missing her 1st 40 mg dose. The patient denies associated fever/chills, nausea, vomiting, chest pain, pleurisy, abdominal pain or other acute somatic complaint. Patient reports her 94-year-old mother lives with her and her mother's VNA noted today that she appeared short of breath and was hypotensive, encouraging the patient to activate EMS for evaluation. Related Data Home Medications ?Medication ?Instructions ?Recorded ?Confirmed pantoprazole 40 mg tablet,delayed 40 mg PO BID@0630,1630 11/17/20 02/04/25 release albuterol sulfate 90 mcg/actuation 2 puff inhalation Q6H PRN 08/09/22 02/04/25 aerosol inhaler Respiratory Distress sertraline 50 mg tablet 50 mg PO DAILY 12/26/22 02/04/25 cholecalciferol (vitamin D3) 25 25 mcg PO DAILY 03/04/24 02/04/25 mcg (1,000 unit) tablet (Vitamin D3) furosemide 20 mg tablet 40 mg PO DAILY 03/04/24 02/04/25 clonidine HCl 0.1 mg tablet 0.1 mg PO BID 04/16/24 02/04/25 fluticasone propionate 50 1 spray intranasal BID 12/26/24 02/04/25 mcg/actuation nasal spray,suspension (Flonase Allergy Relief) ammonium lactate 5 % lotion 1 appl topical BID 02/04/25 02/04/25 (Lac-Hydrin Five) ascorbic acid (vitamin C) 500 mg 500 mg PO BID 02/04/25 02/04/25 tablet (Vitamin C) epoetin boyd 2,000 unit/mL 2,000 unit subcut WE@1600 02/04/25 02/04/25 injection solution (Epogen) ferrous sulfate 325 mg (65 mg 325 mg PO BID 02/04/25 02/04/25 iron) tablet guaifenesin 600 mg tablet, 600 mg PO BID 02/04/25 02/04/25 extended release 12 hr (Mucinex) lidocaine 4 % topical patch 1 patch topical BID Pain 02/04/25 02/04/25 Previous Rx's ?Medication ?Instructions ?Recorded epinephrine 0.3 mg/0.3 mL 0.3 mg (0.3 mL) IM Q20M PRN 02/23/21 injection, auto-injector anaphylaxis #2 ea fluticasone 250 mcg-salmeterol 50 1 inh inhalation BID #60 ea 02/23/21 mcg/dose blistr powdr for inhalation (Wixela Inhub) 3 in 1 commode #1 ea 09/04/22 Raised toilet seat #1 ea 09/04/22 Chair Glider #1 ea 10/15/22 gabapentin 100 mg capsule 100 mg PO TID 2 weeks #42 caps 10/07/24 atorvastatin 80 mg tablet 80 mg PO DAILY #90 tabs 10/22/24 ezetimibe 10 mg tablet 10 mg PO DAILY #90 tabs 10/22/24 carvedilol 25 mg tablet 25 mg PO BID #180 tabs 11/16/24 linezolid 600 mg tablet 600 mg PO BID 23 days #46 tabs 01/02/25 oxycodone 5 mg tablet 5 mg PO Q8H PRN pain #15 tabs 01/02/25 docusate sodium 100 mg capsule 100 mg PO BID #20 caps 02/05/25 (Colace) oxycodone 5 mg tablet 5 mg PO Q6H PRN severe pain (scale 02/05/25 score 7-10) #10 tabs azithromycin 250 mg tablet See Rx Instructions PO .COMPLEX #6 04/29/25 (Zithromax Z-Casey) tabs furosemide 20 mg tablet (Lasix) 20 mg PO DAILY #14 tabs 04/29/25 Allergies Allergy/AdvReac Type Severity Reaction Status Date / Time shrimp Allergy Severe Anaphylaxis Verified 04/28/25 23:40 Penicillins Allergy Unknown UNKNOWN Verified 04/28/25 23:40 levofloxacin (From Levaquin) Allergy Hypertensio Verified 04/28/25 23:40 n paroxetine (From Paxil) Allergy Unknown Verified 04/28/25 23:40 prochlorperazine (From Allergy Unknown Verified 04/28/25 23:40 Compazine) green grapes Allergy itchy and Uncoded 02/03/25 17:28 rash tripoly phosphate Allergy Anaphylaxis Uncoded 02/03/25 17:28 Review of Systems Review of Systems: Yes all other systems are reviewed and are negative [facility] Past Medical History Medical History Anemia Chronic kidney disease (CKD) stage G3a/A1, moderately decreased glomerular filtration rate (GFR) between 45-59 mL/min/1.73 square meter and albuminuria creatinine ratio less than 30 mg/g (HFpEF) heart failure with preserved ejection fraction Surgical wound breakdown Psoriasis Cellulitis of right ankle Diverticulosis GERD (gastroesophageal reflux disease) Occult fracture Acute CHF Hepatic steatosis COPD (chronic obstructive pulmonary disease) Uncontrolled hypertension HTN (hypertension) Other and unspecified hyperlipidemia Essential hypertension Inguinal hernia Sliding hiatal hernia COPD (chronic obstructive pulmonary disease) Asthma Gout Arthritis Hypercholesteremia Wound cellulitis Surgical History History of ankle surgery Hx of tonsillectomy Hx of rotator cuff surgery History of total left knee replacement Family History Family History Father CHF (congestive heart failure) Mother CHF (congestive heart failure) Social History Social History Household Members: Family Household Members Other:: lives with mother, Housing: House Do you presently have visiting nurse or other home services: No Alcohol intake: current Alcohol intake frequency: does not drink Alcohol type: wine Comment: pt rings appropriately Patient Tobacco Use Status: Former Tobacco user Smoked in Last 30 Days: No e-Cigarette/Vaping Use: Never Used Second Hand Smoke Exposure: No Use of substances other than those prescribed or required for medical reasons: No Advance Directives: Yes Advance Directives on File: Yes Advance Directives Date on File: 12/04/20 service: No Current occupational status: employed 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, 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 Cognitive needs: No Hearing needs: No Vision needs: No Physical Exam ED Vital Signs: Vital Signs - 24 hr 04/28/25 23:39 04/28/25 23:41 04/29/25 00:12 Temperature 98.3 F 98.3 F Pulse Rate 85 85 84 Respiratory Rate 16 16 15 Blood Pressure 190/83 H 190/83 H 196/93 H Pulse Oximetry 100 100 100 Oxygen Delivery Method Room Air Room Air Room Air 04/29/25 01:13 04/29/25 02:27 04/29/25 03:29 Temperature 98.2 F Pulse Rate 82 85 Respiratory Rate 16 19 Blood Pressure 196/93 H 206/93 H 189/93 H Pulse Oximetry 100 100 Oxygen Delivery Method Room Air Room Air BMI result Body Mass Index 33.8 CONSTITUTIONAL: The patient appears anxious, but otherwise non-toxic, well nourished and in no acute distress. Vital signs as documented. HEAD: Atraumatic, normocephalic. EYES: EOMs grossly intact, pupils equal, conjunctiva clear, no exudate. ENT: Nares patent, no discharge. Airway patent, no audible stridor, visible mucosa is pink and moist without noted lesions. NECK: Trachea is midline, no obvious masses or gross abnormalities. CHEST: Symmetric movement, normal appearance. LUNGS: LS present and CTAB, no w/r/r. Non-labored work of breathing. CARDIAC: Regular Rhythm, S1/S2 appreciated, no murmurs, rubs or gallops. ABDOMEN: Abdomen soft and non-tender x4 quadrants, no palpable masses or organomegaly. : Deferred. EXTREMITIES: Normal tone, moves all extremities spontaneously without reported pain. No obvious acute injury or deformity noted. NEURO: Alert and oriented x3, CN II-XII appear grossly intact. Cerebellar Functioning grossly intact. No obvious sensory or motor deficits. Speech clear and appropriate. PSYCH: normal affect, appropriate eye contact, fluid speech, with appropriate response to questioning. No reported suicidality or homicidality. SKIN: Warm, dry, color appropriate, normal turgor. No rashes noted. Medications Administered Discontinued Medications Generic Name Dose Route Start Last Admin Trade Name Freq PRN Reason Stop Dose Admin Furosemide 40 mg 04/29/25 00:51 04/29/25 01:13 Furosemide 40 Mg Tablet PO 04/29/25 00:52 40 mg ONCE ONE Administration Protocol Lorazepam 1 mg 04/29/25 02:22 04/29/25 02:26 Lorazepam 1 Mg Tablet PO 04/29/25 02:23 1 mg ONCE ONE Administration Medical Decision Making Medical Decision Making [facility] Narrative: 1:40 AM 04/29/2025 (Anayeli BRANHAM): The patient is a 75-year-old female presenting to the ED for evaluation of increasing shortness of breath since missing a single dose of 40 mg p.o. Lasix this morning. The patient's last dose of a 6 was 20 mg the morning of 04/27. Patient was noted by her mother's VNA to be tachypneic and hypertensive, prompting ED evaluation. In the ED the patient appears anxious but is otherwise in no acute distress, lung sounds are clear to auscultation bilaterally, no wheezes, no rales. Patient's lower extremities demonstrate no pitting edema. The patient's laboratory evaluation shows no leukocytosis, moderate anemia which is consistent with the patient's baseline, likely anemia of chronic disease, does not meet transfusion threshold, with no electrolyte abnormality or significant MALLIKA. The patient's LFTs are unremarkable, troponin is negative, and BNP is 173. Patient's chest x-ray shows no focal consolidation or effusion on this provider's interpretation, awaiting Radiology interpretation. Patient's EKG shows prolonged QT C, otherwise sinus rhythm without acute change. The patient was treated with 40 mg p.o. Lasix. Patient's vital signs demonstrate no hypoxia, fever, tachypnea, or tachycardia. The patient is moderately hypertensive at 196/93. Pending subjective improvement in symptoms and blood pressure, the patient appears appropriate for discharge and will be discharged with a short course of p.o. Lasix, and instructions to follow up with PCP for additional refill. 2:23 AM 04/29/2025 (Anayeli BRANHAM): The patient's workup is reassuring, however patient reports persistent sensation of shortness of breath, patient states she has previously become very anxious when feeling short of breath and wonders if anxiety is contributing to her persistent sensation of shortness of breath. Patient will be treated with a single dose of anxiolytics and we will reassess. The patient continues to have no hypoxia or tachycardia, no hypotension, and no pleurisy. No concern for PE. 3:37 AM 04/29/2025 (Anayeli BRANHAM): Patient reports subjective improvement in work of breathing following anxiolytics. Additionally the patient's chest x-ray has now been interpreted by Radiology who identifies a left retrocardiac patchy opacity versus atelectasis. Given the patient's recent increased work of breathing, we will treat for suspected community-acquired pneumonia with azithromycin. Patient is still appropriate for discharge with outpatient therapy. Admission/Observation Consideration of admission/observation: Escalation of care including admission/observation considered Lab Data MDM Lab Attestation statement: I reviewed the patient's lab results. 04/29/25 00:17 04/29/25 00:16 Labs: Lab Results 04/29/25 04/29/25 Range/Units 00:16 00:17 WBC 4.3 L (4.8-10.8) X10*3/uL RBC 2.92 L (4.20-5.50) X10*6/uL Hgb 8.8 L (12.0-16.0) g/dl Hct 26.2 L (37.0-47.0) % MCV 89.7 (80.0-98.0) fL MCH 30.1 (27.0-33.0) pg MCHC 33.6 (31.0-35.0) g/dl RDW 16.9 H (11.0-16.0) % Plt Count 232 D (160-400) X10*3/uL MPV 9.1 L (9.4-12.3) fL Immature Gran % (Auto) 0.2 (0.0-0.4) % Neut % (Auto) 54.5 (45-73) % Lymph % (Auto) 28.6 (20-40) % [place] % (Auto) 13.0 H (2-11) % Eos % (Auto) 3.0 (0-4) % Baso % (Auto) 0.7 (0-2) % Lymph # (Auto) 1.2 (1.2-4.9) X10*3/uL [place] # (Auto) 0.6 (0.1-1.2) X10*3/uL Eos # (Auto) 0.1 (0.0-0.4) X10*3/uL Baso # (Auto) 0.0 (0.0-0.2) X10*3/uL Abs Immat Gran (auto) 0.01 (0.00-0.03) X10*3/uL Absolute Neuts (auto) 2.3 (2.0-8.3) x10*3/uL Absolute Nucleated RBC 0.000 (0.0-0.012) X10*3/uL Nucleated RBC % (auto) 0.0 (0.0-0.2) /100WBC Sodium 145 (135-145) mmol/L Potassium 3.6 (3.3-5.1) mmol/L Chloride 108 (96-108) mmol/L Carbon Dioxide 21 L (22-29) mmol/L Anion Gap 20 (12-20) BUN 29 H (9-16) mg/dL Creatinine 0.94 (0.5-1.4) mg/dL Estim Creat Clear Calc 57.6 Estimated GFR 58 Random Glucose 82 (60-115) mg/dL Calcium 9.3 D (8.4-10.2) mg/dL Total Bilirubin 0.2 (0.0-1.0) mg/dL AST 32 H (5-31) U/L ALT 7 (0-31) U/L Alkaline Phosphatase 72 (39-117) U/L Troponin I High Sens 12.5 (<3.5-17.0) ng/L B-Natriuretic Peptide 173 H (<100) pg/mL Total Protein 7.0 (6.5-8.0) g/dL Albumin 4.2 (3.5-5.0) g/dL Independent Interpretation I performed an independent interpretation of an: EKG (EKG shows sinus rhythm with a rate of 83, no evidence of acute ischemia, no ST elevation, no ectopy. QTC prolonged at 517. Compared to previous on 02/03/2025 there are no significant morphology changes, previous QTC 486.) External Record Review External record reviewed: Outpatient record Chronic Conditions Patient?s care impacted by: Hypertension Discharge Plan Discharge Clinical Impression: Increasing shortness of breath, Community acquired pneumonia Patient Disposition: Home, Self-Care Instructions: Shortness of Breath (ED), Pneumonia (ED) Additional Instructions: Thank you for choosing [facility]'s Emergency Department for your care today. At this time there is no indication for admission to the hospital or continued ED observation, and it is safe to discharge you home. Your shortness of breath today initially was thought to be related to your lack of diuretic medication. We have treated you with your 40 mg dose of Lasix and your evaluation in the ED is reassuring. Your x-ray however does show concern for a small area of possibly developing pneumonia, as such we are treating you preventatively with azithromycin, please take this as prescribed until finished. Please continue taking your Lasix as prescribed by your drug discovery informatics specialist. We have provided you with a short course of Lasix however it is extremely important that you please contact your prescriber for a new Lasix prescription. Please also follow up with your primary care physician for re-evaluation, additional management of your symptoms, and continued preventative care. If you do not have a primary care physician, please call the [facility] at [phone] to establish a new primary care physician. While waiting to establish your new primary care physician, you can call our Walk-in Care Clinic at [phone] for non-emergency needs. Please return to the emergency department if you develop a severe or sudden change in your symptoms, a fever over 100.4 that does not improve with Tylenol or Ibuprofen, recurrent vomiting, or any other new or worsening symptoms or concerns. Prescriptions: New furosemide [Lasix] 20 mg tablet 20 mg PO DAILY Qty: 14 0RF Rx Instructions: As Directed by Cardiology azithromycin [Zithromax Z-Casey] 250 mg tablet See Rx Instructions .ROUTE .COMPLEX Qty: 6 0RF Rx Instructions: For 250 mg dose pack: take 500 mg today (day 1), then 250 mg for 4 days (days 2-5) No Action (DME) 3 in 1 commode See Rx Instructions .ROUTE .MEDSUPPLY Qty: 1 0RF Rx Instructions: Displaced trimalleolar fracture of left lower leg, initial encounter for closed fracture (DME) Raised toilet seat See Rx Instructions .ROUTE .MEDSUPPLY Qty: 1 0RF Rx Instructions: As directed (DME) Chair Glider See Rx Instructions .ROUTE .MEDSUPPLY Qty: 1 0RF Rx Instructions: As directed Urgent request [employer] [place] RE: Remi Heathaurea Phone number: [phone] ezetimibe 10 mg tablet 10 mg PO DAILY Qty: 90 3RF atorvastatin 80 mg tablet 80 mg PO DAILY Qty: 90 3RF carvedilol 25 mg tablet 25 mg PO BID Qty: 180 3RF albuterol sulfate 90 mcg/actuation Hfa Aerosol Inhaler 2 puff INHALATION Q6H PRN (Reason: Respiratory Distress) furosemide 20 mg tablet 40 mg PO DAILY cholecalciferol (vitamin D3) [Vitamin D3] 25 mcg (1,000 unit) Tablet 25 mcg PO DAILY gabapentin 100 mg capsule 100 mg PO TID 14 Days Qty: 42 0RF fluticasone propionate [Flonase Allergy Relief] 50 mcg/actuation [place],Suspension 1 spray INTRANASAL BID Rx Instructions: administer into each nostril linezolid 600 mg tablet 600 mg PO BID 23 Days Qty: 46 0RF oxycodone 5 mg tablet 5 mg PO Q8H PRN (Reason: pain) Qty: 15 0RF Rx Instructions: Partial Fill upon patient request. ascorbic acid (vitamin C) [Vitamin C] 500 mg Tablet 500 mg PO BID ferrous sulfate 325 mg (65 mg iron) tablet 325 mg PO BID Epogen 2,000 unit/mL Solution 2,000 unit SUBCUT WE@1600 lidocaine 4 % Adhesive Patch,Medicated 1 patch TOPICAL BID guaifenesin [Mucinex] 600 mg Tablet Extended Release 12hr 600 mg PO BID Lac-Hydrin Five 5 % Lotion 1 appl TOPICAL BID oxycodone 5 mg tablet 5 mg PO Q6H PRN (Reason: severe pain (scale score 7-10)) Qty: 10 0RF Rx Instructions: Partial Fill upon patient request. docusate sodium [Colace] 100 mg capsule 100 mg PO BID Qty: 20 0RF fluticasone propion-salmeterol [Wixela Inhub] 250-50 mcg/dose blister with device 1 inh inhalation BID Qty: 60 1RF epinephrine 0.3 mg/0.3 mL auto-injector 0.3 mg IM Q20M PRN (Reason: anaphylaxis) Qty: 2 0RF Rx Instructions: for 2 doses pantoprazole 40 mg tablet,delayed release (DR/EC) 40 mg PO BID@0630,1630 clonidine HCl 0.1 mg tablet 0.1 mg PO BID sertraline 50 mg tablet 50 mg PO DAILY Print Language: Polish
--- NOTE | 2025-04-28 23:56 | ECG_ITS ---
Test Reason : CHF, SOB Blood Pressure : */* mmHG Vent. Rate : 83 BPM Atrial Rate : 83 BPM P-R Int : 168 ms QRS Dur : 100 ms QT Int : 440 ms P-R-T Axes : 68 -7 11 degrees QTcB Int : 517 ms Normal sinus rhythm Minimal voltage criteria for LVH, may be normal variant ( Fisher product ) Prolonged QT Abnormal ECG When compared with ECG of 03-Feb-2025 21:03, ST no longer depressed in Anterior leads T wave inversion less evident in Inferior leads T wave inversion no longer evident in Lateral leads Referred By: Guy Chan Electronically Signed By: Terell Almaraz
--- OUTSIDE RECORDS SUMMARY | 2025-04-29 00:07 | XMS_ITS | Encounter Summary ---
Author Organization [facility] Address [address] [place] [address] Care Team Providers Care Clinical Quality Assurance Specialist Name Role Phone Grady Helm MD Primary Care Provider [phone] Encounter Details Date Type Department Care Team (Late st Contact Info) Description 03/10/2025 Lab Requisition [facility] - Main Lab [address] [facility] [place] [address] Calin Mcgill MD [address] [place] [address] Hypomagnesemia Social History Tobacco Use Types Packs/Day Years [...] documented as of this encounter Visit Diagnoses Diagnosis Hypomagnesemia Disorders of magnesium metabolism documented in this encounter Care Teams Clinical Quality Assurance Specialist Relationship Specialty Start Date End Date Grady Helm MD [address] [place] [address] PCP - General Internal Medicine 01/03/25 documented as of this encounter
--- OUTSIDE RECORDS SUMMARY | 2025-04-29 00:07 | XMS_ITS | Encounter Summary ---
Author Organization [facility] Address [address] [place] [address] Care Team Providers Care Stitching Department Supervisor Name Role Phone Grady Helm MD Primary Care Provider +1- [phone] Encounter Details Date Type Department Care Team (Late st Contact Info) Description 02/07/2025 Lab Requisition [facility] - Main Lab [address] [facility] [place] [address] Calin Mcgill MD [address] [place] [address] Vitamin D deficiency, unspecified; Anemia, unspecified; Chronic kidney disease, unspecified; Heart failure, unspecified (CMS/HCC V24, CMS/HCC V28) Social History Tobacco Use Types Packs/Day Years [...] on file documented as of this encounter Procedures Procedure Name Priority Date/Time Associated Diagnosis Comments LIPID PANEL WITH REFLEX TO DIRECT LDL Routine 02/07/2025 5:22 AM EDT Vitamin D deficiency, unspecified Anemia, unspecified Chronic kidney disease, unspecified Heart failure, unspecified (CMS/HCC V24, CMS/[facility] V28) VITAMIN D 25 HYDROXY Routine 02/07/2025 5:22 AM EDT Vitamin D deficiency, unspecified Anemia, unspecified Chronic kidney disease, unspecified Heart failure, unspecified ([facility] V24, [facility] V28) COMPLETE BLOOD COUNT Routine 02/07/2025 5:22 AM EDT Vitamin D deficiency, unspecified Anemia, unspecified Chronic kidney disease, unspecified Heart failure, unspecified ([facility] V24, [facility] V28) IRON Routine 02/07/2025 5:22 AM EDT Vitamin D deficiency, unspecified Anemia, unspecified Chronic kidney disease, unspecified Heart failure, unspecified ([facility] V24, [facility] V28) FOLATE Routine 02/07/2025 5:22 AM EDT Vitamin D deficiency, unspecified Anemia, unspecified Chronic kidney disease, unspecified Heart failure, unspecified ([facility] V24, [facility] V28) VITAMIN B12 Routine 02/07/2025 5:22 AM EDT Vitamin D deficiency, unspecified Anemia, unspecified Chronic kidney disease, unspecified Heart failure, unspecified ([facility] V24, [facility] V28) COMPREHENSIVE METABOLIC PANEL Routine 02/07/2025 5:22 AM EDT Vitamin D deficiency, unspecified Anemia, unspecified Chronic kidney disease, unspecified Heart failure, unspecified ([facility] V24, [facility] V28) documented in this encounter Results * (ABNORMAL) Iron (02/07/2025 5:22 AM EDT) Iron 13(L) 40 - 150 mcg/dL LAB CHEMISTRY METHOD 02/07/2025 1:51 PM EDT [facility] Blood Venous blood specimen / Unknown Venipuncture / Unknown 02/07/2025 5:22 AM EDT 02/07/2025 12:23 PM EDT Calin Mcgill MD LAB BLOOD ORDERABLES Final Resul t Performing Organization Address City/[facility]/ZIP Co de Phone Number [facility] [address] [place] [address], [place] [phone] * Vitamin D 25 hydroxy (02/07/2025 5:22 AM EDT) Vit D, 25-Hydroxy 73.2 30.0 - 80.0 ng/mL LAB CHEMISTRY METHOD 02/07/2025 2:52 PM EDT [facility] Blood Venous blood specimen / Unknown Venipuncture / Unknown 02/07/2025 5:22 AM EDT 02/07/2025 12:23 PM EDT us Calin Mcgill MD LAB BLOOD ORDERABLES Final Resul t Performing Organization Address [facility] Co de Phone Number [facility] [address] [place] [address], [place] [phone] * Vitamin B12 (02/07/2025 5:22 AM EDT) Pathologist [facility] Vitamin B-12 620 250 - 900 pcg/mL LAB CHEMISTRY METHOD 02/07/2025 2:15 PM EDT [facility] Blood Venous blood specimen / Unknown Venipuncture / Unknown 02/07/2025 5:22 AM EDT 02/07/2025 12:23 PM EDT us Calin Mcgill MD LAB BLOOD ORDERABLES Final Resul t Performing Organization Address [facility]/ZIP Co de Phone Number [facility] [address] [place] [address], [place] [phone] * Folate (02/07/2025 5:22 AM EDT) Folate 3.8 2.8 - 17.0 ng/ml LAB CHEMISTRY METHOD 02/07/2025 2:15 PM EDT [facility] Blood Venous blood specimen / Unknown Venipuncture / Unknown 02/07/2025 5:22 AM EDT 02/07/2025 12:23 PM EDT us Calin Mcgill MD LAB BLOOD ORDERABLES Final Resul t Performing Organization Address City/[facility]/ZIP Co de Phone Number [facility] [address] [place] [address], [place] [phone] * (ABNORMAL) Lipid panel with reflex to direct LDL (02/07/2025 5:22 AM EDT) Cholesterol 87 0 - 200 mg/dL LAB CHEMISTRY METHOD 02/07/2025 2:04 PM EDT [facility] Triglycerides 60 0 - 150 mg/dL LAB CHEMISTRY METHOD 02/07/2025 2:04 PM EDT [facility] HDL 28(L) >=40 mg/dL LAB CHEMISTRY METHOD 02/07/2025 2:04 PM EDT [facility] LDL Calculated 47 0 - 100 mg/dL LAB CHEMISTRY METHOD 02/07/2025 2:04 PM EDT [facility] VLDL Cholesterol Mo 12 mg/dL LAB CHEMISTRY METHOD 02/07/2025 2:04 PM EDT [facility] Non HDL Chol. (LDL+VLDL) 59 <145 mg/dL LAB CHEMISTRY METHOD 02/07/2025 2:04 PM EDT [facility] Chol/HDL Ratio 3.1 0.0 - 4.4 LAB CHEMISTRY METHOD 02/07/2025 2:04 PM EDT [facility] Blood Venous blood specimen / Unknown Venipuncture / Unknown 02/07/2025 5:22 AM EDT 02/07/2025 12:23 PM EDT us Calin Mcgill MD LAB BLOOD ORDERABLES Final Resul t [facility] [address] [place] [address], [place] [phone] * (ABNORMAL) Comprehensive metabolic panel (02/07/2025 5:22 AM EDT) Sodium 135 133 - 145 mmol/L LAB CHEMISTRY METHOD 02/07/2025 2:21 PM [facility] Potassium 2.8(LL) 3.5 - 5.5 mmol/L LAB CHEMISTRY METHOD 02/07/2025 2:21 PM [facility] Chloride 94(L) 96 - 110 mmol/L LAB CHEMISTRY METHOD 02/07/2025 2:21 PM [facility] CO2 28 21 - 32 mmol/L LAB CHEMISTRY METHOD 02/07/2025 2:21 PM [facility] Anion Gap 13(H) 3 - 11 LAB CHEMISTRY METHOD 02/07/2025 2:21 PM [facility] Glucose 60(L) 70 - 100 mg/dL LAB CHEMISTRY METHOD 02/07/2025 2:21 PM [facility] BUN 21 5 - 25 mg/dL LAB CHEMISTRY METHOD 02/07/2025 2:21 PM [facility] Creatinine 1.29(H) 0.50 - 1.10 mg/dL LAB CHEMISTRY METHOD 02/07/2025 2:21 PM [facility] LAB eGFR 44(L) >=60 mL/min/1. 73m2 LAB CHEMISTRY METHOD 02/07/2025 2:21 PM [facility] LAB Comment:Calculation based on the Chronic Kidney Disease Epidemiology Collaboration (CKD-EPI) equation refit without adjustment for race. BUN/Creatinine Ratio 16.3 LAB CHEMISTRY METHOD 02/07/2025 2:21 PM [facility] Calcium 6.2(L) 8.5 - 10.5 mg/dL LAB CHEMISTRY METHOD 02/07/2025 2:21 PM [facility] AST (SGOT) 26 10 - 42 unit/L LAB CHEMISTRY METHOD 02/07/2025 2:21 PM EDT [facility] ALT (SGPT) 17 10 - 60 unit/L LAB CHEMISTRY METHOD 02/07/2025 2:21 PM EDT [facility] Alkaline Phosphatase 92 42 - 121 unit/L LAB CHEMISTRY METHOD 02/07/2025 2:21 PM EDT [facility] Total Protein 4.7(L) 6.0 - 8.0 g/dL LAB CHEMISTRY METHOD 02/07/2025 2:21 PM EDT [facility] Albumin 1.9(L) 3.2 - 5.0 g/dL LAB CHEMISTRY METHOD 02/07/2025 2:21 PM EDT [facility] Total Bilirubin 0.5 0.0 - 1.4 mg/dL LAB CHEMISTRY METHOD 02/07/2025 2:21 PM EDT [facility] Blood Venous blood specimen / Unknown Venipuncture / Unknown 02/07/2025 5:22 AM EDT 02/07/2025 12:23 PM EDT us Calin Mcgill MD LAB BLOOD ORDERABLES Final Resul t [facility] [address] [place] [address], * (ABNORMAL) Complete blood count (02/07/2025 5:22 AM EDT) WBC 9.0 4.8 - 10.8 K/mcL LAB HEMETOLOGY METHOD 02/07/2025 1:49 PM EDT [facility] RBC 2.80(L) 3.80 - 4.80 M/mcL LAB HEMETOLOGY METHOD 02/07/2025 1:49 PM EDT [facility] Hemoglobin 7.4(L) 11.5 - 16.0 g/dL LAB HEMETOLOGY METHOD 02/07/2025 1:49 PM EDT [facility] Hematocrit 23.9(L) 35.0 - 47.0 % LAB HEMETOLOGY METHOD 02/07/2025 1:49 PM EDT [facility] MCV 84.5 79.0 - 98.0 FL LAB HEMETOLOGY METHOD 02/07/2025 1:49 PM EDT [facility] MCH 26.1(L) 27.0 - 32.0 pcg LAB HEMETOLOGY METHOD 02/07/2025 1:49 PM EDT [facility] MCHC 31.0(L) 32.0 - 37.0 g/dL LAB HEMETOLOGY METHOD 02/07/2025 1:49 PM EDT [facility] RDW 23.9(H) 11.0 - 15.0 % LAB HEMETOLOGY METHOD 02/07/2025 1:49 PM EDT [facility] Platelets 337 130 - 400 K/mcL LAB HEMETOLOGY METHOD 02/07/2025 1:49 PM EDT [facility] MPV 10.5 7.0 - 11.0 FL LAB HEMETOLOGY METHOD 02/07/2025 1:49 PM EDT [facility] NRBC 0.0 <1.0 % LAB HEMETOLOGY METHOD 02/07/2025 1:49 PM EDT [facility] NRBC Absolute 0.00 <0.10 K/mcL LAB HEMETOLOGY METHOD 02/07/2025 1:49 PM EDT [facility] Blood Venous blood specimen / Unknown Venipuncture / Unknown 02/07/2025 5:22 AM EDT 02/07/2025 12:23 PM EDT us Calin Mcgill MD LAB BLOOD ORDERABLES Final Resul t [facility] [address] [place] [address], documented in this encounter Visit Diagnoses Diagnosis Vitamin D deficiency, unspecified Anemia, unspecified Chronic kidney disease, unspecified Heart failure, unspecified (CMS/HCC V24, CMS/HCC V28) Heart failure, unspecified documented in this encounter Care Teams Stitching Department Supervisor Relationship Specialty Start Date End Date Grady Helm MD [address] [place] [address] PCP - General Internal Medicine 01/03/25 documented as of this encounter
--- OUTSIDE RECORDS SUMMARY | 2025-04-29 00:07 | XMS_ITS | Encounter Summary ---
Author Organization [facility] Address [address] [place] [address] Care Team Providers Care Graduate Student Instructor Name Role Phone Grady Helm MD Primary Care Provider +1- [phone] Encounter Details Date Type Department Care Team (Late st Contact Info) Description 02/10/2025 Lab Requisition [facility] - Main Lab [address] [facility] [place] [address] Calin Mcgill MD [address] [place] [address] Chronic kidney disease, unspecified; Vitamin D deficiency, unspecified Social History Tobacco Use Types Packs/Day Years [...] as of this encounter Plan of Treatment Pending Results Name Type Priority Associated Diagnoses Date /Time SST tube Lab Routine Chronic kidney disease, unspecified Vitamin D deficiency, unspecified 02/10/2025 6:56 AM EDT documented as of this encounter Procedures Procedure Name Priority Date/Time Associated Diagnosis Comments VITAMIN D 25 HYDROXY Routine 02/10/2025 6:56 AM EDT Chronic kidney disease, unspecified Vitamin D deficiency, unspecified PHOSPHORUS Routine 02/10/2025 6:56 AM EDT Chronic kidney disease, unspecified Vitamin D deficiency, unspecified PARATHYROID HORMONE INTACT Routine 02/10/2025 6:56 AM EDT Chronic kidney disease, unspecified Vitamin D deficiency, unspecified MAGNESIUM Routine 02/10/2025 6:56 AM EDT Chronic kidney disease, unspecified Vitamin D deficiency, unspecified documented in this encounter Results * Phosphorus (02/10/2025 6:56 AM EDT) Phosphorus 3.9 2.5 - 4.5 mg/dL LAB CHEMISTRY METHOD 02/10/2025 9:24 AM EDT [facility] Blood Venous blood specimen / Unknown Venipuncture / Unknown 02/10/2025 6:56 AM EDT 02/10/2025 8:10 AM EDT us Calin Mcgill MD LAB BLOOD ORDERABLES Final Resul t Performing Organization Address City/[facility]/ZIP Co de Phone Number [facility] [address] [place] [address], * (ABNORMAL) Magnesium (02/10/2025 6:56 AM EDT) Magnesium 0.9(LL) 1.9 - 2.6 mg/dL LAB CHEMISTRY METHOD 02/10/2025 9:44 AM EDT [facility] Blood Venous blood specimen / Unknown Venipuncture / Unknown 02/10/2025 6:56 AM EDT 02/10/2025 8:10 AM EDT us Calin Mcgill MD LAB BLOOD ORDERABLES Final Resul t [facility] [address] [place] [address], [place] [phone] * Vitamin D 25 hydroxy (02/10/2025 6:56 AM EDT) Vit D, 25-Hydroxy 79.6 30.0 - 80.0 ng/mL LAB CHEMISTRY METHOD 02/10/2025 10:04 AM EDT [facility] Blood Venous blood specimen / Unknown Venipuncture / Unknown 02/10/2025 6:56 AM EDT 02/10/2025 8:10 AM EDT Calin Mcgill MD LAB BLOOD ORDERABLES Final Resul t Performing Organization Address [facility]/ZIP Co de Phone Number [facility] [address] [place] [address], [place] [phone] * Parathyroid hormone intact (02/10/2025 6:56 AM EDT) PTH 82.4 18.5 - 88.0 pcg/mL LAB CHEMISTRY METHOD 02/10/2025 10:04 AM EDT [facility] Blood Venous blood specimen / Unknown Venipuncture / Unknown 02/10/2025 6:56 AM EDT 02/10/2025 8:10 AM EDT us Calin Mcgill MD LAB BLOOD ORDERABLES Final Resul t Performing Organization Address [facility]/ZIP Co de Phone Number [facility] [address] [place] [address], [place] [phone] documented in this encounter Visit Diagnoses Diagnosis Chronic kidney disease, unspecified Vitamin D deficiency, unspecified documented in this encounter Care Teams Graduate Student Instructor Relationship Specialty Start Date End Date Grady Helm MD [address] [place] [id number] PCP - General Internal Medicine 01/03/25 documented as of this encounter
--- OUTSIDE RECORDS SUMMARY | 2025-04-29 00:07 | XMS_ITS | Encounter Summary ---
Author Organization [facility] Address [address] [place] [address] Care Team Providers Care Prototype Carpenter Name Role Phone Grady Helm MD Primary Care Provider [phone]- [phone] Encounter Details Date Type Department Care Team (Late st Contact Info) Description 02/08/2025 Lab Requisition [facility] - Main Lab [address] [facility] [place] [address] Calin Mcgill MD [address] [place] [address] Hypokalemia Social History Tobacco Use Types Packs/Day Years [...] Procedure Name Priority Date/Time Associated Diagnosis Comments BASIC METABOLIC PANEL Routine 02/08/2025 5:10 AM EDT Hypokalemia documented in this encounter Results * (ABNORMAL) Basic metabolic panel (02/08/2025 5:10 AM EDT) Sodium 141 133 - 145 mmol/L LAB CHEMISTRY METHOD 02/08/2025 9:25 AM EDT [facility] Potassium 3.4(L) 3.5 - 5.5 mmol/L LAB CHEMISTRY METHOD 02/08/2025 9:25 AM [facility] Chloride 102 96 - 110 mmol/L LAB CHEMISTRY METHOD 02/08/2025 9:25 AM [facility] CO2 31 21 - 32 mmol/L LAB CHEMISTRY METHOD 02/08/2025 9:25 AM [facility] Anion Gap 8 3 - 11 LAB CHEMISTRY METHOD 02/08/2025 9:25 AM [facility] Glucose 84 70 - 100 mg/dL LAB CHEMISTRY METHOD 02/08/2025 9:25 AM [facility] BUN 17 5 - 25 mg/dL LAB CHEMISTRY METHOD 02/08/2025 9:25 AM [facility] Creatinine 1.08 0.50 - 1.10 mg/dL LAB CHEMISTRY METHOD 02/08/2025 9:25 AM [facility] eGFR 54(L) >=60 mL/min/1. 73m2 LAB CHEMISTRY METHOD 02/08/2025 9:25 AM [facility] Comment:Calculation based on the Chronic Kidney Disease Epidemiology Collaboration (CKD-EPI) equation refit without adjustment for race. BUN/Creatinine Ratio 15.7 LAB CHEMISTRY METHOD 02/08/2025 9:25 AM [facility] Calcium 5.7(LL) 8.5 - 10.5 mg/dL LAB CHEMISTRY METHOD 02/08/2025 9:25 AM [facility] Blood Venous blood specimen / Unknown Venipuncture / Unknown 02/08/2025 5:10 AM EDT 02/08/2025 8:12 AM EDT us Calin Mcgill MD LAB BLOOD ORDERABLES Final Resul t [facility] [address] [place] [address], documented in this encounter Visit Diagnoses Diagnosis Hypokalemia Hypopotassemia documented in this encounter Care Teams Prototype Carpenter Relationship Specialty Start Date End Date Grady Helm MD [address] [place] [id number] PCP - General Internal Medicine 01/03/25 documented as of this encounter
--- OUTSIDE RECORDS SUMMARY | 2025-04-29 00:07 | XMS_ITS | Clinical Summary ---
Author Organization [facility], Address [address] [place] [address] [place] [address] Phone Care Team Providers Care Pressure Sealer And Tester Name Role Phone Unavailable Primary Care Provider [...] Chronic kidney disease, stage 3 (moderate) 09/29 Immunizations Immunization Administration Dates Next Due Influenza [...] Risk 3-dose series) 2012 Influenza Vaccine (#1) 2025 1, 05/11/2019, 07/12/2015, Additional history exists Pneumococcal Vaccine: 50+ Years Completed 0, 12/28/2018 Pneumococcal Vaccine: Peds ( 0 to 5 Years) and At-Risk Patients (6 to 49 Years) Discontinued 07/25/2020, 12/28/[address] [place] [address] [place] [address] [facility]
--- OUTSIDE RECORDS SUMMARY | 2025-04-29 00:07 | XMS_ITS | Encounter Summary ---
Author Organization [facility], Address [address] [place] [address] Phone Care Team Providers Care Drafter Civil Engineering Name Role Phone Dai Ortega DO Primary Care Provider [phone] Reason for Visit * Reason Comments Med Refill Encounter Details Date Type Department Care Team (Late st Contact Info) Description 02/26/2021 Refill [facility] [address] [place] [address] Conrad Shah MD [address] [place] [id number] Social History Tobacco Use Types Packs/Day Years [...] on filedocumented in this encounter Care Teams Drafter Civil Engineering Relationship Specialty Start Date End Date Dai Ortega DO PCP - General 06/29/19 04/24/21 documented as of this encounter
--- OUTSIDE RECORDS SUMMARY | 2025-04-29 00:07 | XMS_ITS | Patient Health Record ---
Author Organization [facility] Address [address] [place] [address] Care Team Providers Care Metal Flooring Installer Name Role Phone Billie Maguire MD Primary Care Provider Deric Gambino Unavailable [phone] Allergies Allergen (clinical drug ingredient) Drug/Non Drug Allergy documented on EMR Reaction Allergy Type Onset Date Status prochlorperazine Prochlorperazine Unknown Drug Allergy Active paroxetine Paxil Unknown Drug Allergy Active Levaquin Unknown Drug Allergy Active Latex latex (uncoded) Unknown Allergy Acti ve Compazine Unknown Drug Allergy Active Reason For Referral No Information Medications Medication [...] every 6 hrs Active Vitamin D (Ergocalciferol) 92843 UNIT 1 capsule Orally per week Ac tive Flonase 50 MCG/ACT 1 spray in each nost ril Nasally Once a day Active Immunizations Vaccine Route Administration Date Status Comme nts Influenza Unknown 08/12/2018 Administered Problems Problem Type SNOMED Code ICD Code Onset Dates Problem Status W/U Status Risk Notes Problem 792794568 Encounter for screening for malignant neoplasm of colon (Z12.11) Active confirmed Problem 133940454 History of adenomatous polyp of colon (Z86.010) Active confirmed Problem Iron deficiency anemia (62995096) Iron deficiency anemia (D50.9) Active confirmed Problem 001621259702465 Preprocedural examination (Z01.818) Active confirmed Encounters Encounter Location Date Provider Diagnosis [facility] [address] [place] [address] 07/27/2024 Deric Aquino Plan Of Treatment Future Test Test Name Order Date COLONOSCOPY 06/16/2013 COLONOSCOPY 02/03/2019 Medical (General) History Medical History History ICD Code Screening Colonoscopy 6-27-2 008--1 small tubular adenoma removed; neg. colonoscopy in 07/2013 GERD-EGD 5-5-1998-HH, no Daniels's Hypertension Asthma Anemia-chronic Chronic kidney disease stage III-Dr. 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 Josi Chapin Surgical History Surgery Date(Month/Year) Rotator cuff right shoulder Tonsillectomy
--- OUTSIDE RECORDS SUMMARY | 2025-04-29 00:07 | XMS_ITS | Encounter Summary ---
Author Organization [facility], Address [address] [place] [address] Phone Care Team Providers Care School Plant Consultant Name Role Phone Unavailable Primary Care Provider Unavailabl e Encounter Details Date Type Department Care Team (Late st Contact Info) Description 01/13/2025 Documentation Only [facility], [address] [place] [address] [place] [address] [place] [address] Social History Tobacco Use Types Packs/Day Years [...]
--- OUTSIDE RECORDS SUMMARY | 2025-04-29 00:08 | XMS_ITS | Encounter Summary ---
Author Organization [facility] Address [address] [place] [address] Care Team Providers Care Baster Hand Name Role Phone Grady Helm MD Primary Care Provider [phone]- [phone] Encounter Details Date Type Department Care Team (Late st Contact Info) Description 01/03/2025 Lab Requisition [facility] - Main Lab [address] [facility] [place] [address] Grady Helm MD [address] [place] [address] Cellulitis, unspecified Social History Tobacco Use Types Packs/Day [...] Procedure Name Priority Date/Time Associated Diagnosis Comments COMPLETE BLOOD COUNT Routine 01/03/2025 8:30 AM EDT Cellulitis, unspecified COMPREHENSIVE METABOLIC PANEL Routine 01/03/2025 8:30 AM EDT Cellulitis, unspecified documented in this encounter Results * (ABNORMAL) Comprehensive metabolic panel (01/03/2025 8:30 AM EDT) Sodium 138 133 - 145 mmol/L LAB CHEMISTRY METHOD 01/03/2025 10:55 AM [facility] Potassium 4.2 3.5 - 5.5 mmol/L LAB CHEMISTRY METHOD 01/03/2025 10:55 AM [facility] Chloride 106 96 - 110 mmol/L LAB CHEMISTRY METHOD 01/03/2025 10:55 AM [facility] CO2 25 21 - 32 mmol/L LAB CHEMISTRY METHOD 01/03/2025 10:55 AM [facility] Anion Gap 7 3 - 11 LAB CHEMISTRY METHOD 01/03/2025 10:55 AM [facility] Glucose 75 70 - 100 mg/dL LAB CHEMISTRY METHOD 01/03/2025 10:55 AM [facility] BUN 24 5 - 25 mg/dL LAB CHEMISTRY METHOD 01/03/2025 10:55 AM [facility] Creatinine 1.34(H) 0.50 - 1.10 mg/dL LAB CHEMISTRY METHOD 01/03/2025 10:55 AM [facility] eGFR 42(L) >=60 mL/min/1. 73m2 LAB CHEMISTRY METHOD 01/03/2025 10:55 AM [facility] Comment:Calculation based on the Chronic Kidney Disease Epidemiology Collaboration (CKD-EPI) equation refit without adjustment for race. BUN/Creatinine Ratio 17.9 LAB CHEMISTRY METHOD 01/03/2025 10:55 AM [facility] Calcium 8.3(L) 8.5 - 10.5 mg/dL LAB CHEMISTRY METHOD 01/03/2025 10:55 AM [facility] AST (SGOT) 75(H) 10 - 42 unit/L LAB CHEMISTRY METHOD 01/03/2025 10:55 AM [facility] ALT (SGPT) 40 10 - 60 unit/L LAB CHEMISTRY METHOD 01/03/2025 10:55 AM EDT [facility] Alkaline Phosphatase 84 42 - 121 unit/L LAB CHEMISTRY METHOD 01/03/2025 10:55 AM EDT [facility] Total Protein 5.5(L) 6.0 - 8.0 g/dL LAB CHEMISTRY METHOD 01/03/2025 10:55 AM [facility] Albumin 1.9(L) 3.2 - 5.0 g/dL LAB CHEMISTRY METHOD 01/03/2025 10:55 AM T [facility] Total Bilirubin 0.4 0.0 - 1.4 mg/dL LAB CHEMISTRY METHOD 01/03/2025 10:55 AM [facility] Blood Venous blood specimen / Unknown Venipuncture / Unknown 01/03/2025 8:30 AM EDT 01/03/2025 10:08 AM EDT Grady Helm MD LAB BLOOD ORDERABLES Final Result [facility] [address] [place] [address], * (ABNORMAL) Complete blood count (01/03/2025 8:30 AM EDT) WBC 7.5 4.8 - 10.8 K/mcL LAB HEMETOLOGY METHOD 01/03/2025 10:23 AM [facility] RBC 2.90(L) 3.80 - 4.80 M/[facility] LAB HEMETOLOGY METHOD 01/03/2025 10:23 AM [facility] Hemoglobin 7.9(L) 11.5 - 16.0 g/dL LAB HEMETOLOGY METHOD 01/03/2025 10:23 AM [facility] Hematocrit 25.0(L) 35.0 - 47.0 % LAB HEMETOLOGY [facility] MCV 85.3 79.0 - 98.0 FL LAB HEMETOLOGY METHOD 01/03/2025 10:23 AM EDT [facility] MCH 27.0 27.0 - 32.0 pcg LAB HEMETOLOGY METHOD 01/03/2025 10:23 AM EDT [facility] MCHC 31.6(L) 32.0 - 37.0 g/dL LAB HEMETOLOGY METHOD 01/03/2025 10:23 AM EDT [facility] RDW 17.9(H) 11.0 - 15.0 % LAB HEMETOLOGY METHOD 01/03/2025 10:23 AM EDT [facility] Platelets 544(H) 130 - 400 K/mcL LAB HEMETOLOGY METHOD 01/03/2025 10:23 AM EDT [facility] MPV 9.6 7.0 - 11.0 FL LAB HEMETOLOGY METHOD 01/03/2025 10:23 AM EDT [facility] NRBC 0.0 <1.0 % LAB HEMETOLOGY METHOD 01/03/2025 10:23 AM EDT [facility] NRBC Absolute 0.00 <0.10 K/mcL LAB HEMETOLOGY METHOD 01/03/2025 10:23 AM T [facility] Blood Venous blood specimen / Unknown Venipuncture / Unknown 01/03/2025 8:30 AM EDT 01/03/2025 10:08 AM EDT us Grady Helm MD LAB BLOOD ORDERABLES Final Result [facility] [address] [place] [address], documented in this encounter Visit Diagnoses Diagnosis Cellulitis, unspecified documented in this encounter Care Teams Baster Hand Relationship Specialty Start Date End Date Grady Helm MD [address] [place] [address] PCP - General Internal Medicine 01/03/25 documented as of this encounter
--- OUTSIDE RECORDS SUMMARY | 2025-04-29 00:08 | XMS_ITS | Encounter Summary ---
Author Organization [facility] Address [address] [place] [address] Care Team Providers Care Sterile Processing Manager Name Role Phone Grady Helm MD Primary Care Provider +1- [phone] Encounter Details Date Type Department Care Team (Late st Contact Info) Description 01/17/[address] [facility] - Main Lab [address] [facility] [place] [address] Grady Helm MD [address] [place] [address] Cellulitis, unspecified Social History Tobacco Use Types [...] Associated Diagnosis Comments COMPLETE BLOOD COUNT Routine 01/18/2025 8:01 AM EDT Cellulitis, unspecified BASIC METABOLIC PANEL Routine 01/18/2025 8:01 AM EDT Cellulitis, unspecified documented in this encounter Results * (ABNORMAL) Basic metabolic panel (01/18/2025 8:01 AM EDT) Sodium 140 133 - 145 mmol/L LAB CHEMISTRY METHOD 01/18/2025 1:31 PM [facility] Potassium 3.6 3.5 - 5.5 mmol/L LAB CHEMISTRY METHOD 01/18/2025 1:31 PM [facility] Chloride 101 96 - 110 mmol/L LAB CHEMISTRY METHOD 01/18/2025 1:31 PM [facility] CO2 25 21 - 32 mmol/L LAB CHEMISTRY METHOD 01/18/2025 1:31 PM [facility] Anion Gap 14(H) 3 - 11 LAB CHEMISTRY METHOD 01/18/2025 1:31 PM [facility] Glucose 63(L) 70 - 100 mg/dL LAB CHEMISTRY METHOD 01/18/2025 1:31 PM [facility] BUN 28(H) 5 - 25 mg/dL LAB CHEMISTRY METHOD 01/18/2025 1:31 PM [facility] Creatinine 1.89(H) 0.50 - 1.10 mg/dL LAB CHEMISTRY METHOD 01/18/2025 1:31 PM [facility] eGFR 28(L) >=60 mL/min/1. 73m2 LAB CHEMISTRY METHOD 01/18/2025 1:31 PM [facility] Comment:Calculation based on the Chronic Kidney Disease Epidemiology Collaboration (CKD-EPI) equation refit without adjustment for race. BUN/Creatinine Ratio 14.8 LAB CHEMISTRY METHOD 01/18/2025 1:31 PM [facility] Calcium 7.7(L) 8.5 - 10.5 mg/dL LAB CHEMISTRY METHOD 01/18/2025 1:31 PM [facility] Blood Venous blood specimen / Unknown Venipuncture / Unknown 01/18/2025 8:01 AM EDT 01/18/2025 11:05 AM EDT us Grady B Jagadeesan MD LAB BLOOD ORDERABLES Final Result [facility] [address] [place] [address], * (ABNORMAL) Complete blood count (01/18/2025 8:01 AM EDT) WBC 2.3(L) 4.8 - 10.8 K/mcL LAB HEMETOLOGY METHOD 01/18/2025 12:10 PM EDT [facility] RBC 2.90(L) 3.80 - 4.80 M/mcL LAB HEMETOLOGY METHOD 01/18/2025 12:10 PM EDT [facility] Hemoglobin 7.7(L) 11.5 - 16.0 g/dL LAB HEMETOLOGY METHOD 01/18/2025 12:10 PM EDT [facility] Hematocrit 24.5(L) 35.0 - 47.0 % LAB HEMETOLOGY METHOD 01/18/2025 12:10 PM EDT [facility] MCV 84.2 79.0 - 98.0 FL LAB HEMETOLOGY METHOD [facility] MCH 26.5(L) 27.0 - 32.0 pcg LAB HEMETOLOGY METHOD 01/18/2025 12:10 PM EDT [facility] MCHC 31.4(L) 32.0 - 37.0 g/dL LAB HEMETOLOGY METHOD 01/18/2025 12:10 PM EDT [facility] RDW 19.1(H) 11.0 - 15.0 % LAB HEMETOLOGY METHOD 01/18/2025 12:10 PM T [facility] Platelets 107(L) 130 - 400 K/mcL LAB HEMETOLOGY METHOD 01/18/2025 12:10 PM EDT [facility] MPV 11.4(H) 7.0 - 11.0 FL LAB HEMETOLOGY METHOD 01/18/2025 12:10 PM EDT [facility] NRBC 0.0 <1.0 % LAB HEMETOLOGY METHOD 01/18/2025 12:10 PM EDT [facility] NRBC Absolute 0.00 <0.10 K/mcL LAB HEMETOLOGY METHOD 01/18/2025 12:10 PM EDT [facility] Blood Venous blood specimen / Unknown Venipuncture / Unknown 01/18/2025 8:01 AM EDT 01/18/2025 11:05 AM EDT us Grady Helm MD LAB BLOOD ORDERABLES Final Result [facility] [address] [place] [address], documented in this encounter Visit Diagnoses Diagnosis Cellulitis, unspecified documented in this encounter Care Teams Sterile Processing Manager Relationship Specialty Start Date End Date Grady Helm MD [address] [place] [id number] PCP - General Internal Medicine 01/03/25 documented as of this encounter
--- OUTSIDE RECORDS SUMMARY | 2025-04-29 00:08 | XMS_ITS | Clinical Summary ---
Author Organization LL [address] [place] [address] Address [address] [place] [address] Phone Care Team Providers Care Tank Builder Helper Name Role Phone Grady Helm MD Primary Care Provider [phone] Medications traZODone (DESYREL) 50 mg tablet Take 1 tablet (50 mg total) by mouth at bedtime. Active Encounters Date Type Department Care Team Description 03/10/2025 Lab Requisition [facility] Lab [address] [place] [phone] Calin Mcgill MD Hypomagnesemia 02/10/2025 Lab Requisition [facility] Lab [address] [place] [phone] Calin Mcgill MD Chronic kidney disease, unspecified; Vitamin D deficiency, unspecified 02/08/2025 Lab Requisition [facility] Lab [address] [place] [phone] Calin Mcgill MD Hypokalemia 02/07/2025 Lab Requisition [facility] Lab [address] [place] [phone] Calin Mcgill MD Vitamin D deficiency, unspecified; Anemia, unspecified; Chronic kidney disease, unspecified; Heart failure, unspecified (CMS/HCC V24, CMS/HCC V28) from Last 3 Months Surgical History Surgery Date Site/Laterality Comments TONSILLECTOMY PROCEDURE:TONSILLECTOMY COLONOSCOPY 02/19/2008 PROCEDURE:COLONOSCOPY;COMMENT:s mall tubular adenoma COLONOSCOPY 07/2013 PROCEDURE:COLONOSCOPY;COMMENT:N eg ESOPHAGOGASTRODUODENOSCOPY 12/27/1098 PROCEDURE:ESOPHAGOGASTRODUODENO SCOPY;COMMENT:no , H Hernia Medical History Medical History Date Comments GERD (gastroesophageal reflux disease) DX:GERD (gastroesophageal reflux disease) Low back pain DX:Low back pain Neuromuscular disorder ([facility]/ [facility] V24, [facility] V28) DX:Neuromuscular disorder (H [facility]) Scoliosis DX:Scoliosis COPD (chronic obstructive pu lmonary disease) ([facility] V24, [facility] V28) DX:COPD (chronic o bstructive pulmonary disease) ([facility]) Hypertension DX:Hypertension Allergic rhinitis DX:Allergic rh initis [...] 60-74 years 1-dose series) 2012 Zoster Vaccines (1 of 2) 09/19/2020 07/25/2020 Breast Cancer Screening 10/14/2020 10/14/2018 Colorectal Cancer Screening: Colonoscopy 07/28/2022 Falls Risk Assessment 07/28/2022 Hepatitis C Screening 07/28/2022 Osteoporosis Screening (Bone Density Screening) 07/28/2022 Social Influencers of Health Screening 07/28/2022 Depression Screening 08/25/2024 Influenza Vaccine (#1) 2025 , 05/11/2019, 07/12/2015, Additional history exists Hypertension/CHF/CAD Annual BMP Blood Test 02/08/2026 02/08/2025, 02/07/2025, 01/18/2025, Additional history exists DTaP,Tdap,and Td Vaccines (2 - Td or Tdap) 03/19/2028 03/19/2018 Cholesterol Screening (Lipid Panel) 02/07/2030 02/07/2025 Pneumococcal Vaccine: 50+ Years Completed 07/25/2020, 12/28/2018 [...] Procedure Name Priority Date/Time Associated Diagnosis Comments PHOSPHORUS Routine 02/10/2025 6:56 AM EDT Chronic kidney disease, unspecified Vitamin D deficiency, unspecified MAGNESIUM Routine 02/10/2025 6:56 AM EDT Chronic kidney disease, unspecified Vitamin D deficiency, unspecified VITAMIN D 25 HYDROXY Routine 02/10/2025 6:56 AM EDT Chronic kidney disease, unspecified Vitamin D deficiency, unspecified PARATHYROID HORMONE INTACT Routine 02/10/2025 6:56 AM EDT Chronic kidney disease, unspecified Vitamin D deficiency, unspecified BASIC METABOLIC PANEL Routine 02/08/2025 5:10 AM EDT Hypokalemia IRON Routine 02/07/2025 5:22 AM EDT Vitamin D deficiency, unspecified Anemia, unspecified Chronic kidney disease, unspecified Heart failure, unspecified (CMS/HCC V24, CMS/HCC V28) VITAMIN D 25 HYDROXY Routine 02/07/2025 5:22 AM EDT Vitamin D deficiency, unspecified Anemia, unspecified Chronic kidney disease, unspecified Heart failure, unspecified (CMS/HCC V24, CMS/HCC V28) VITAMIN B12 Routine 02/07/2025 5:22 AM EDT Vitamin D deficiency, unspecified Anemia, unspecified Chronic kidney disease, unspecified Heart failure, unspecified (CMS/HCC V24, CMS/HCC V28) FOLATE Routine 02/07/2025 5:22 AM EDT Vitamin D deficiency, unspecified Anemia, unspecified Chronic kidney disease, unspecified Heart failure, unspecified (CMS/HCC V24, CMS/[facility] V28) LIPID PANEL WITH REFLEX TO DIRECT LDL Routine 02/07/2025 5:22 AM EDT Vitamin D deficiency, unspecified Anemia, unspecified Chronic kidney disease, unspecified Heart failure, unspecified (CMS/HCC V24, CMS/HCC V28) COMPREHENSIVE METABOLIC PANEL Routine 02/07/2025 5:22 AM EDT Vitamin D deficiency, unspecified Anemia, unspecified Chronic kidney disease, unspecified Heart failure, unspecified (CMS/HCC V24, CMS/HCC V28) COMPLETE BLOOD COUNT Routine 02/07/2025 5:22 AM EDT Vitamin D deficiency, unspecified Anemia, unspecified Chronic kidney disease, unspecified Heart failure, unspecified (CMS/HCC V24, CMS/HCC V28) BRANDY SCREENING DIGITAL Routine 10/14/2018 5:09 PM EST Encounter for screening mammogram for malignant neoplasm of breast from Last 3 Months or Most Recently Relevant to Health Maintenance Results * Vitamin D 25 hydroxy (02/10/2025 6:56 AM EDT) Only the most recent of2 resultswithin the time period is included. Vit D, 25-Hydroxy 79.6 30.0 - 80.0 ng/mL LAB CHEMISTRY METHOD 02/10/2025 10:04 AM EDT [facility] Blood Venous blood specimen / Unknown Venipuncture / Unknown 02/10/2025 6:56 AM EDT 02/10/2025 8:10 AM EDT us Calin Mcgill MD LAB BLOOD ORDERABLES Final Resul t Performing Organization Address City/[facility]/ZIP Co de Phone Number [facility] [address] [place] [address], [place] [phone] * Phosphorus (02/10/2025 6:56 AM EDT) Phosphorus 3.9 2.5 - 4.5 mg/dL LAB CHEMISTRY METHOD 02/10/2025 9:24 AM EDT [facility] Blood Venous blood specimen / Unknown Venipuncture / Unknown 02/10/2025 6:56 AM EDT 02/10/2025 8:10 AM EDT us Calin Mcgill MD LAB BLOOD ORDERABLES Final Resul t Performing Organization Address [facility]/ZIP Co de Phone Number [facility] [address] [place] [address], [place] [phone] * Parathyroid hormone intact (02/10/2025 6:56 AM EDT) PTH 82.4 18.5 - 88.0 pcg/mL LAB CHEMISTRY METHOD 02/10/2025 10:04 AM EDT [facility] Blood Venous blood specimen / Unknown Venipuncture / Unknown 02/10/2025 6:56 AM EDT 02/10/2025 8:10 AM EDT us Calin Mcgill MD LAB BLOOD ORDERABLES Final Resul t Performing Organization Address [facility] Co de Phone Number [facility] [address] [place] [address], * (ABNORMAL) Magnesium (02/10/2025 6:56 AM EDT) Magnesium 0.9(LL) 1.9 - 2.6 mg/dL LAB CHEMISTRY METHOD 02/10/2025 9:44 AM EDT [facility] Blood Venous blood specimen / Unknown Venipuncture / Unknown 02/10/2025 6:56 AM EDT 02/10/2025 8:10 AM EDT Calin Mcgill MD LAB BLOOD ORDERABLES Final Resul t Performing Organization Address [facility] de Phone Number [facility] [address] [place] [address], * (ABNORMAL) Basic metabolic panel (02/08/2025 5:10 AM EDT) Pathologist [facility] Sodium 141 133 - 145 mmol/L LAB CHEMISTRY METHOD 02/08/2025 9:25 AM [facility] Potassium 3.4(L) 3.5 - 5.5 mmol/L LAB CHEMISTRY METHOD 02/08/2025 9:25 AM [facility] Chloride 102 96 - 110 mmol/L LAB CHEMISTRY METHOD 02/08/2025 9:25 AM EDT [facility] CO2 31 21 - 32 mmol/L LAB CHEMISTRY METHOD 02/08/2025 9:25 AM EDT [facility] Anion Gap 8 3 - 11 LAB CHEMISTRY METHOD 02/08/2025 9:25 AM [facility] Glucose 84 70 - 100 mg/dL LAB CHEMISTRY METHOD 02/08/2025 9:25 AM [facility] BUN 17 5 - 25 mg/dL LAB CHEMISTRY METHOD 02/08/2025 9:25 AM EDT [facility] Creatinine 1.08 0.50 - 1.10 mg/dL LAB CHEMISTRY METHOD 02/08/2025 9:25 AM EDT [facility] eGFR 54(L) >=60 mL/min/1. 73m2 LAB CHEMISTRY METHOD 02/08/2025 9:25 AM EDT [facility] Comment:Calculation based on the Chronic Kidney Disease Epidemiology Collaboration (CKD-EPI) equation refit without adjustment for race. BUN/Creatinine Ratio 15.7 LAB CHEMISTRY METHOD 02/08/2025 9:25 AM T [facility] Calcium 5.7(LL) 8.5 - 10.5 mg/dL LAB CHEMISTRY METHOD 02/08/2025 9:25 AM T [facility] Blood Venous blood specimen / Unknown Venipuncture / Unknown 02/08/2025 5:10 AM EDT 02/08/2025 8:12 AM EDT us Calin Mcgill MD LAB BLOOD ORDERABLES Final Resul t [facility] [address] [place] [address], * (ABNORMAL) Lipid panel with reflex to direct LDL (02/07/2025 5:22 AM EDT) Cholesterol 87 0 - 200 mg/dL LAB CHEMISTRY METHOD 02/07/2025 2:04 PM EDT [facility] Triglycerides 60 0 - 150 mg/dL LAB CHEMISTRY METHOD 02/07/2025 2:04 PM EDT [facility] HDL 28(L) >=40 mg/dL LAB CHEMISTRY METHOD 02/07/2025 2:04 PM T [facility] LDL Calculated 47 0 - 100 mg/dL LAB CHEMISTRY METHOD 02/07/2025 2:04 PM T [facility] VLDL Cholesterol Mo 12 mg/dL LAB CHEMISTRY METHOD 02/07/2025 2:04 PM EDT [facility] Non HDL Chol. (LDL+VLDL) 59 <145 mg/dL LAB CHEMISTRY METHOD 02/07/2025 2:04 PM EDT [facility] Chol/HDL Ratio 3.1 0.0 - 4.4 LAB CHEMISTRY METHOD 02/07/2025 2:04 PM EDT [facility] Blood Venous blood specimen / Unknown Venipuncture / Unknown 02/07/2025 5:22 AM EDT 02/07/2025 12:23 PM EDT us Calin Mcgill MD LAB BLOOD ORDERABLES Final Resul t [facility] [address] [place] [address], * (ABNORMAL) Complete blood count (02/07/2025 5:22 AM EDT) WBC 9.0 4.8 - 10.8 K/mcL LAB HEMETOLOGY METHOD 02/07/2025 1:49 PM [facility] RBC 2.80(L) 3.80 - 4.80 M/mcL LAB HEMETOLOGY METHOD 02/07/2025 1:49 PM [facility] Hemoglobin 7.4(L) 11.5 - 16.0 g/dL LAB HEMETOLOGY METHOD 02/07/2025 1:49 PM EDT [facility] Hematocrit 23.9(L) 35.0 - 47.0 % LAB HEMETOLOGY METHOD 02/07/2025 1:[facility] MCV 84.5 79.0 - 98.0 FL LAB HEMETOLOGY METHOD 02/07/2025 1:49 PM [facility] MCH 26.1(L) 27.0 - 32.0 pcg LAB HEMETOLOGY METHOD 02/07/2025 1:49 PM EDT [facility] MCHC 31.0(L) 32.0 - 37.0 g/dL LAB HEMETOLOGY METHOD 02/07/2025 1:49 PM EDT [facility] RDW 23.9(H) 11.0 - 15.0 % LAB HEMETOLOGY METHOD 02/07/2025 1:49 PM EDT [facility] Platelets 337 130 - 400 K/mcL LAB HEMETOLOGY METHOD 02/07/2025 1:49 PM EDT [facility] MPV 10.5 7.0 - 11.0 FL LAB HEMETOLOGY METHOD 02/07/2025 1:49 PM EDT [facility] NRBC 0.0 <1.0 % LAB HEMETOLOGY METHOD 02/07/2025 1:49 PM EDT [facility] NRBC Absolute 0.00 <0.10 K/mcL LAB HEMETOLOGY METHOD 02/07/2025 1:49 PM EDT [facility] Blood Venous blood specimen / Unknown Venipuncture / Unknown 02/07/2025 5:22 AM EDT 02/07/2025 12:23 PM EDT us Calin Mcgill MD LAB BLOOD ORDERABLES Final Resul t [facility] [address] [place] [address], * (ABNORMAL) Iron (02/07/2025 5:22 AM EDT) Iron 13(L) 40 - 150 mcg/dL LAB CHEMISTRY METHOD 02/07/2025 1:51 PM EDT [facility] Blood Venous blood specimen / Unknown Venipuncture / Unknown 02/07/2025 5:22 AM EDT 02/07/2025 12:23 PM EDT us Calin Mcgill MD LAB BLOOD ORDERABLES Final Resul t Performing Organization Address [facility]/ZIP Co de Phone Number [facility] [address] [place] [address], [place] [phone] * Folate (02/07/2025 5:22 AM EDT) [facility] Folate 3.8 2.8 - 17.0 ng/ml LAB CHEMISTRY METHOD 02/07/2025 2:15 PM EDT [facility] Blood Venous blood specimen / Unknown Venipuncture / Unknown 02/07/2025 5:22 AM EDT 02/07/2025 12:23 PM EDT us Calin Mcgill MD LAB BLOOD ORDERABLES Final Resul t Performing Organization Address [facility] Co de Phone Number [facility] [address] [place] [address], [place] [phone] * Vitamin B12 (02/07/2025 5:22 AM EDT) [facility] Vitamin B-12 620 250 - 900 pcg/mL LAB CHEMISTRY METHOD 02/07/2025 2:15 PM EDT [facility] Blood Venous blood specimen / Unknown Venipuncture / Unknown 02/07/2025 5:22 AM EDT 02/07/2025 12:23 PM EDT us Calin Mcgill MD LAB BLOOD ORDERABLES Final Resul t Performing Organization Address City/[facility]/ZIP Co de Phone Number [facility] [address] [place] [address], [place] [phone] * (ABNORMAL) Comprehensive metabolic panel (02/07/2025 5:22 AM EDT) [facility] Sodium 135 133 - 145 mmol/L LAB CHEMISTRY METHOD 02/07/2025 2:21 PM [facility] Potassium 2.8(LL) 3.5 - 5.5 mmol/L LAB CHEMISTRY METHOD 02/07/2025 2:21 PM [facility] Chloride 94(L) 96 - 110 mmol/L LAB CHEMISTRY METHOD 02/07/2025 2:21 PM [facility] CO2 28 21 - 32 mmol/L LAB CHEMISTRY METHOD 02/07/2025 2:21 PM [facility] Anion Gap 13(H) 3 - 11 LAB CHEMISTRY METHOD 02/07/2025 2:21 PM [facility] Glucose 60(L) 70 - 100 mg/dL LAB CHEMISTRY METHOD 02/07/2025 2:21 PM [facility] BUN 21 5 - 25 mg/dL LAB CHEMISTRY METHOD 02/07/2025 2:21 PM [facility] Creatinine 1.29(H) 0.50 - 1.10 mg/dL LAB CHEMISTRY METHOD 02/07/2025 2:21 PM [facility] eGFR 44(L) >=60 mL/min/1. 73m2 LAB CHEMISTRY METHOD 02/07/2025 2:21 PM [facility] Comment:Calculation based on the Chronic Kidney Disease Epidemiology Collaboration (CKD-EPI) equation refit without adjustment for race. BUN/Creatinine Ratio 16.3 LAB CHEMISTRY METHOD 02/07/2025 2:21 PM [facility] Calcium 6.2(L) 8.5 - 10.5 mg/dL LAB CHEMISTRY METHOD 02/07/2025 2:21 PM [facility] AST (SGOT) 26 10 - 42 unit/L LAB CHEMISTRY METHOD 02/07/2025 2:21 PM [facility] ALT (SGPT) 17 10 - 60 unit/L LAB CHEMISTRY METHOD 02/07/2025 2:21 PM [facility] Alkaline Phosphatase 92 42 - 121 unit/L LAB CHEMISTRY METHOD 02/07/2025 2:21 PM EDT [facility] Total Protein 4.7(L) 6.0 - 8.0 g/dL LAB CHEMISTRY METHOD 02/07/2025 2:21 PM EDT [facility] Albumin 1.9(L) 3.2 - 5.0 g/dL LAB CHEMISTRY METHOD 02/07/2025 2:21 PM EDT [facility] Total Bilirubin 0.5 0.0 - 1.4 mg/dL LAB CHEMISTRY METHOD 02/07/2025 2:21 PM EDT [facility] Blood Venous blood specimen / Unknown Venipuncture / Unknown 02/07/2025 5:22 AM EDT 02/07/2025 12:23 PM EDT Calin Mcgill MD LAB BLOOD ORDERABLES Final Resul t [facility] [address] [place] [address], * BRANDY SCREENING DIGITAL (10/14/2018 5:09 PM EST) Anatomical Region Laterality Modality Mammography 10/14/2018 3:43 PM EST Narrative 10/14/2018 5:09 PM EST [facility] Diagnostic Imaging Department [address] [place] [address] Patient: RACHEL VIDAL/Age/Sex: 1950 - 68 - F Unit#: [id number] Location/Status: SPDIMAM/REG CLI Mnemonic/Ordering Site: DIGSC/SPMAM Ordering Physician: DAI HASKINS MD [facility] Screening Digital - 10/14/18 - 1603 EXAM: [facility] Screening Digital EXAM DATE AND TIME: 10/14/2018 4:03 PM HISTORY: Screening. Sister had breast carcinoma. COMPARISON: 08/26/14, 10/26/11, 10/12/09 TECHNIQUE: CC and MLO views of both breasts were obtained using full field digital mammography. Bilateral digital breast tomosynthesis was performed in the MLO projection. Computer aided detection with the Readmill 7.2-H was employed. TISSUE DENSITY: b. There are scattered areas of fibroglandular density. FINDINGS: No suspicious masses, grouped microcalcifications, or areas of architectural distortion are seen. A few coarse, benign calcifications are seen in the anterior left breast. The skin and vascularity are unremarkable. IMPRESSION: Stable mammographic appearance of the breasts. No evidence of malignancy is seen. A negative mammogram in the presence of a clinically suspicious palpable abnormality does not preclude the possibility of malignancy or alter the indications for biopsy. BI-RADS: Category 2: Benign RECOMMENDATION(S): 1: Routine screening mammogram BILATERAL in 1 year. [address]691, 36819 3342F, 7025F Dictating Physician: SANDY MARLEY MD Electronically Signed by: SANDY MARLEY MD Dic Date/Time: 10/14/181708 Sign date/Time: 10/14/181708 Procedure Note Sandy Marley MD - 08/14/2022 [facility] Diagnostic Imaging Department [address] [place] [id number] Patient: RACHEL VIDAL /Age/Sex: 1950 - 68 - F Unit#: [id number] Location/Status: SPDIMAM/REG CLI Mnemonic/Ordering Site: [facility] Ordering Physician: DAI HASKINS MD [facility] Screening Digital - 10/14/18 - 160 EXAM: [facility] Screening Digital EXAM DATE AND TIME: 10/14/2018 4:03 PM HISTORY: Screening. Sister had breast carcinoma. COMPARISON: 08/26/14, 10/26/11, 10/12/09 TECHNIQUE: CC and MLO views of both breasts were obtained using fullfield digital mammography. Bilateral digital breast tomosynthesis was performedin the MLO projection. Computer aided detection with the Readmill 7.2-[employer] employed. TISSUE DENSITY: b. There are scattered [...] Routine screening mammogram BILATERAL in 1 year. [address]9685, 28940 3342F, 7025F Dictating Physician: SANDY MARLEY MD Electronically Signed by: SANDY MARLEY MD Dic Date/Time: 10/14/181708 Sign date/Time: 10/14/181708 Dai Haskins DO IMG BI PROCEDURES Final Result from Last 3 Months or Most Recently Relevant to Health Maintenance Insurance MEDICARE Care Teams Tank Builder Helper Relationship Specialty Start Date End Date Grady Helm MD [address] [place] [phone] PCP - General Internal Medicine 01/03/25
--- OUTSIDE RECORDS SUMMARY | 2025-04-29 00:08 | XMS_ITS | Encounter Summary ---
Author Organization [facility] Address [address] [place] [address] Care Team Providers Care Dairy Nutritionist Name Role Phone Grady Helm MD Primary Care Provider [phone] Encounter Details Date Type Department Care Team (Late st Contact Info) Description 01/08/2025 Lab Requisition [facility] - Main Lab [address] [facility] [place] [address] Grady Helm MD [address] [place] [address] Cellulitis, unspecified Social History Tobacco Use Types [...] Associated Diagnosis Comments COMPLETE BLOOD COUNT Routine 01/10/2025 7:51 AM EDT Cellulitis, unspecified BASIC METABOLIC PANEL Routine 01/10/2025 7:51 AM EDT Cellulitis, unspecified documented in this encounter Results * (ABNORMAL) Basic metabolic panel (01/10/2025 7:51 AM EDT) Sodium 138 133 - 145 mmol/L LAB CHEMISTRY METHOD 01/10/2025 10:32 AM [facility] Potassium 3.5 3.5 - 5.5 mmol/L LAB CHEMISTRY METHOD 01/10/2025 10:32 AM [facility] Chloride 104 96 - 110 mmol/L LAB CHEMISTRY METHOD 01/10/2025 10:32 AM [facility] CO2 25 21 - 32 mmol/L LAB CHEMISTRY METHOD 01/10/2025 10:32 AM [facility] Anion Gap 9 3 - 11 LAB CHEMISTRY METHOD 01/10/2025 10:32 AM [facility] Glucose 69(L) 70 - 100 mg/dL LAB CHEMISTRY METHOD 01/10/2025 10:32 AM [facility] BUN 23 5 - 25 mg/dL LAB CHEMISTRY METHOD 01/10/2025 10:32 AM [facility] Creatinine 1.57(H) 0.50 - 1.10 mg/dL LAB CHEMISTRY METHOD 01/10/2025 10:32 AM [facility] eGFR 35(L) >=60 mL/min/1. 73m2 LAB CHEMISTRY METHOD 01/10/2025 10:32 AM [facility] Comment:Calculation based on the Chronic Kidney Disease Epidemiology Collaboration (CKD-EPI) equation refit without adjustment for race. BUN/Creatinine Ratio 14.6 LAB CHEMISTRY METHOD 01/10/2025 10:32 AM [facility] Calcium 8.0(L) 8.5 - 10.5 mg/dL LAB CHEMISTRY METHOD 01/10/2025 10:32 AM [facility] Blood Venous blood specimen / Unknown Venipuncture / Unknown 01/10/2025 7:51 AM EDT 01/10/2025 9:39 AM EDT us Grady Helm MD LAB BLOOD ORDERABLES Final Result [facility] [address] [place] [address], * (ABNORMAL) Complete blood count (01/10/2025 7:51 AM EDT) WBC 3.5(L) 4.8 - 10.8 K/mcL LAB HEMETOLOGY METHOD 01/10/2025 10:52 AM EDT [facility] RBC 2.70(L) 3.80 - 4.80 M/mcL LAB HEMETOLOGY METHOD 01/10/2025 10:52 AM EDT [facility] Hemoglobin 7.2(L) 11.5 - 16.0 g/dL LAB HEMETOLOGY METHOD 01/10/2025 10:52 AM EDT [facility] Hematocrit 23.3(L) 35.0 - 47.0 % LAB HEMETOLOGY METHOD 01/10/2025 10:52 AM EDT [facility] MCV 86.3 79.0 - 98.0 FL LAB HEMETOLOGY METHOD 01/10/2025 10:52 AM EDT [facility] MCH 26.7(L) 27.0 - 32.0 pcg LAB HEMETOLOGY METHOD 01/10/2025 10:52 AM EDT [facility] MCHC 30.9(L) 32.0 - 37.0 g/dL LAB HEMETOLOGY METHOD 01/10/2025 10:52 AM EDT [facility] RDW 18.5(H) 11.0 - 15.0 % LAB HEMETOLOGY METHOD 01/10/2025 10:52 AM EDT [facility] Platelets 227 130 - 400 K/mcL LAB HEMETOLOGY METHOD 01/10/2025 10:52 AM EDT [facility] MPV 9.6 7.0 - 11.0 FL LAB HEMETOLOGY METHOD 01/10/2025 10:52 AM EDT [facility] NRBC 0.0 <1.0 % LAB HEMETOLOGY METHOD 01/10/2025 10:52 AM EDT [facility] NRBC Absolute 0.00 <0.10 K/mcL LAB HEMETOLOGY METHOD 01/10/2025 10:52 AM EDT [facility] Blood Venous blood specimen / Unknown Venipuncture / Unknown 01/10/2025 7:51 AM EDT 01/10/2025 9:39 AM EDT Grady Helm MD LAB BLOOD ORDERABLES Final Result [facility] [address] [place] [address], documented in this encounter Visit Diagnoses Diagnosis Cellulitis, unspecified documented in this encounter Care Teams Dairy Nutritionist Relationship Specialty Start Date End Date Grady Helm MD [address] [place] [phone] PCP - General Internal Medicine 01/03/25 documented as of this encounter
--- OUTSIDE RECORDS SUMMARY | 2025-04-29 00:08 | XMS_ITS | Patient Health Record ---
Author Organization [facility] Address [address] [place] [address] Care Team Providers Care Stereotype Molder Name Role Phone Jordan Dai BRYSON Primary Care Provider Sanya Lawrence Unavailable [phone] Allergies Allergen (clinical drug ingredient) Drug/Non Drug Allergy documented on EMR Reaction Allergy Type Onset Date Status Adhesive Tape (uncoded) rash Allergy Active Grapes Grapes (uncoded) Unknown Allergy Act sue Kiwi (uncoded) Unknown Allergy Activ e Latex Latex (uncoded) rash Allergy Acti ve tripolyphosphate (uncoded) Unknown Allergy Active povidone-iodine Betadine hives Drug Allergy A ctive Levaquin Unknown Drug Allergy Active paroxetine Paxil Unknown Drug Allergy Active Compazine Unknown Drug Allergy Active Reason For Referral No Information Medications Medication SIG (Take, Route, Frequency, Duration) Notes Start Date End Date Status cloNIDine HCl 0.1 MG 1 tablet at bedtime Orally Once a day; Duration: 30 day(s) Active traMADol HCl Active Furosemide 20 MG 1 tablet Orally Once a day; Duration: 30 day(s) Active Advair HFA Active LORazepam 0.5 MG 1 tablet as needed Orally every 6 hrs Active Flonase Active Pantoprazole Sodium 40 MG 1 tablet Orall y Once a day; Duration: 30 day(s) Active traMADol HCl Not-Ralph ing Biotin Active Levaquin 500 MG 1 tablet Orally Once a day; Duration: 10 day(s) Not-Taking Flonase Active Fluticasone Furoate 50 MCG/ACT 2 puffs Inhalation Once a day Unknown Allopurinol 100 MG 1 tablet Orally Once a day; Duration: 30 day(s) Active Tylenol Active Atorvastatin Calcium 40 MG 1 tablet Orally Once a day; Duration: 30 day(s) Active Coreg Active Iron Active Vitamin D Active Benadryl Active Albuterol Active Probiotic Active Betamethasone Dipropionate 0.05 % 1 application to affected area Externally Once a day Active Social History Tobacco Use: Social History Observation Description Date Details (start date - stop date) Former Smoker NA - NA Tobacco Use/Smoking Question Answer Notes Are you a: former smoker When did you stop smoking? 20 yrs ago Additional Findings: Tobacco Non-User Current no n-smoker Alcohol Screen Question Answer Notes Did you have a drink contain ing alcohol in the past year? Yes How often did you have a dri nk containing alcohol in the past year? Monthly or less (1 point) Points 1 Interpretation Negative Tobacco use other than smoking: Question Answer Notes Are you an other tobacco user? No Problems Problem Type SNOMED Code ICD Code Onset Dates Problem Status W/U Status Risk Notes Problem Lymphedema (21944248) Lymphedema (I89.0) Active confirmed Problem Psoriasis (8211382) Psoriasis (L40.9) Active confirmed Plan Of Treatment Pending Test Test Name Order Date [id number] SKIN/TISSUE 12/02/2018 Insurance Providers Payer Name Payer Address Payer Phone Subscriber Number Group Number Insured Name Patient Relationship to Insured Coverage Start Date Coverage End Date [facility] [address] [place] [address] [id number] Binta Vidal Self - patient is the insured Medical (General) History Medical History History ICD Code Allergic rhinitis Anemia Arthritis asthma Cellulitis chronic kidney disease stage 3 COPD Gastroesophageal reflux disease (GERD) Hypertension Low Back pain Scoliosis neuromuscular disorder (HCC) Broken bones CAD (Cholesterol) Gout Hiatal hernia High blood pressure Kidney disease Psoriasis/eczema Reflux ( GERD) Scarlet fever chronic sinusitis Mumps Measles Chicken pox kidney cancer Surgical History Surgery Date(Month/Year) tonsillectomy 1954 rotator cuff 2011
--- OUTSIDE RECORDS SUMMARY | 2025-04-29 00:08 | XMS_ITS | Encounter Summary ---
Author Organization [facility] Address [address] [place] [address] Care Team Providers Care Mercury Cell Cleaner Name Role Phone Grady Helm MD Primary Care Provider +1- [phone] Encounter Details Date Type Department Care Team (Late st Contact Info) Description 01/13/2025 Lab Requisition [facility] - Main Lab [address] [facility] [place] [address] Grady Helm MD [address] [place] [address] Anemia, unspecified Social History Tobacco Use Types Packs/Day [...] Associated Diagnosis Comments COMPLETE BLOOD COUNT Routine 01/14/2025 8:55 AM EDT Anemia, unspecified documented in this encounter Results * (ABNORMAL) Complete blood count (01/14/2025 8:55 AM EDT) WBC 3.0(L) 4.8 - 10.8 K/mcL LAB HEMETOLOGY METHOD 01/14/2025 12:08 PM [facility] RBC 2.70(L) 3.80 - 4.80 M/mcL LAB HEMETOLOGY METHOD 01/14/2025 12:08 PM [facility] Hemoglobin 7.3(L) 11.5 - 16.0 g/dL LAB HEMETOLOGY METHOD 01/14/2025 12:08 PM [facility] LAB Hematocrit 23.5(L) 35.0 - 47.0 % LAB HEMETOLOGY METHOD 01/14/2025 12:08 PM [facility] MCV 85.8 79.0 - 98.0 FL LAB HEMETOLOGY METHOD 01/14/2025 12:08 PM [facility] MCH 26.6(L) 27.0 - 32.0 pcg LAB HEMETOLOGY METHOD 01/14/2025 12:08 PM [facility] LAB MCHC 31.1(L) 32.0 - 37.0 g/dL LAB HEMETOLOGY METHOD 01/14/2025 12:08 PM [facility] RDW 18.8(H) 11.0 - 15.0 % LAB HEMETOLOGY METHOD 01/14/2025 12:08 PM [facility] Platelets 138 130 - 400 K/mcL LAB HEMETOLOGY METHOD 01/14/2025 12:08 PM [facility] MPV 10.5 7.0 - 11.0 FL LAB HEMETOLOGY METHOD 01/14/2025 12:08 PM [facility] NRBC 0.0 <1.0 % LAB HEMETOLOGY METHOD 01/14/2025 12:08 PM [facility] NRBC Absolute 0.00 <0.10 K/mcL LAB HEMETOLOGY METHOD 01/14/2025 12:08 PM [facility] Blood Venous blood specimen / Unknown Venipuncture / Unknown 01/14/2025 8:55 AM EDT 01/14/2025 10:57 AM EDT Grady Helm MD LAB BLOOD ORDERABLES Final Result [facility] [address] [place] [address], documented in this encounter Visit Diagnoses Diagnosis Anemia, unspecified documented in this encounter Care Teams Mercury Cell Cleaner Relationship Specialty Start Date End Date Grady Helm MD [address] [place] [id number] PCP - General Internal Medicine 01/03/25 documented as of this encounter
--- OUTSIDE RECORDS SUMMARY | 2025-04-29 00:08 | XMS_ITS | Encounter Summary ---
Author Organization [facility] Address [address] [place] [address] Care Team Providers Care Gas Meter Checker Name Role Phone Grady Helm MD Primary Care Provider +1- [phone] Encounter Details Date Type Department Care Team (Late st Contact Info) Description 01/23/2025 Lab Requisition [facility] - Main Lab [address] [facility] [place] [address] Grady Helm MD [address] [place] [address] Cellulitis, unspecified Social History Tobacco Use Types [...] as of this encounter Visit Diagnoses Diagnosis Cellulitis, unspecified documented in this encounter Care Teams Gas Meter Checker Relationship Specialty Start Date End Date Grady Helm MD [address] [place] [address] PCP - General Internal Medicine 01/03/25 documented as of this encounter
--- OUTSIDE RECORDS SUMMARY | 2025-04-29 00:08 | XMS_ITS | Clinical Summary ---
Author Organization [facility] Address [address] [place] [address] Care Team Providers Care Refrigeration Plant Operator Name Role Phone Unavailable Primary Care Provider [...] DAY 10/16/2017 Active ergocalciferol (VITAMIN D2) capsule 08628 units TAKE ONE CAPSULE BY MOUTH EVERY [...] 69 01/07/2023 12:59 PM EDT Temperature 36.3 C (97.3 F) 01/07/2023 12:59 PM EDT Respiratory Rate 16 07/25/2020 2:45 PM EST [...] 04/26, 07/25/2020, Additional history exists COVID-19 Vaccine (2 - season) 2024 08/29/2023 Influenza Vaccine (#1) 2025 , 05/26/2020, 05/11/2019, Additional history exists DTap [...]
--- OUTSIDE RECORDS SUMMARY | 2025-04-29 00:08 | XMS_ITS | Encounter Summary ---
Author Organization [facility] Address [address] [place] [address] Care Team Providers Care Audio Specialist Name Role Phone Grady Helm MD Primary Care Provider +1- [phone] Encounter Details Date Type Department Care Team (Late st Contact Info) Description 01/04/2025 Lab Requisition [facility] - Main Lab 299 [facility] [place] [address] Grady Helm MD [address] [place] [address] Heart failure, unspecified (CMS/HCC V24, CMS/HCC V28); Anemia, unspecified Social History Tobacco Use Types [...] Associated Diagnosis Comments COMPLETE BLOOD COUNT Routine 01/05/2025 5:54 AM EDT Heart failure, unspecified (CMS/HCC V24, CMS/HCC V28) Anemia, unspecified documented in this encounter Results * (ABNORMAL) Complete blood count (01/05/2025 5:54 AM EDT) [facility] WBC 5.9 4.8 - 10.8 K/mcL LAB HEMETOLOGY METHOD 01/05/2025 8:51 AM [facility] LAB RBC 2.80(L) 3.80 - 4.80 M/mcL LAB HEMETOLOGY METHOD 01/05/2025 8:51 AM [facility] LAB Hemoglobin 7.5(L) 11.5 - 16.0 g/dL LAB HEMETOLOGY METHOD 01/05/2025 8:51 AM [facility] LAB Hematocrit 24.9(L) 35.0 - 47.0 % LAB HEMETOLOGY METHOD 01/05/2025 8:51 AM [facility] LAB MCV 88.0 79.0 - 98.0 FL LAB HEMETOLOGY METHOD 01/05/2025 8:51 AM [facility] LAB MCH 26.5(L) 27.0 - 32.0 pcg LAB HEMETOLOGY METHOD 01/05/2025 8:51 AM [facility] LAB MCHC 30.1(L) 32.0 - 37.0 g/dL LAB HEMETOLOGY METHOD 01/05/2025 8:51 AM [facility] LAB RDW 18.1(H) 11.0 - 15.0 % LAB HEMETOLOGY METHOD 01/05/2025 8:51 AM [facility] LAB Platelets 512(H) 130 - 400 K/mcL LAB HEMETOLOGY METHOD 01/05/2025 8:51 AM [facility] LAB MPV 9.2 7.0 - 11.0 FL LAB HEMETOLOGY METHOD 01/05/2025 8:51 AM [facility] LAB NRBC 0.0 <1.0 % LAB HEMETOLOGY METHOD 01/05/2025 8:51 AM [facility] LAB NRBC Absolute 0.00 <0.10 K/mcL LAB HEMETOLOGY METHOD 01/05/2025 8:51 AM EDT [facility] LAB Blood Venous blood specimen / Unknown Venipuncture / Unknown 01/05/2025 5:54 AM EDT 01/05/2025 8:30 AM EDT us Grady Helm MD LAB BLOOD ORDERABLES Final Result [facility] LAB [address] [place] [address], documented in this encounter Visit Diagnoses Diagnosis Heart failure, unspecified (CMS/HCC V24, CMS/HCC V28) Heart failure, unspecified Anemia, unspecified documented in this encounter Care Teams Audio Specialist Relationship Specialty Start Date End Date Grady Helm MD [address] [place] [address] PCP - General Internal Medicine 01/03/25 documented as of this encounter
--- OUTSIDE RECORDS SUMMARY | 2025-04-29 00:08 | XMS_ITS | Clinical Summary ---
Author Organization [facility] Address [address] [place] [address] Phone Care Team Providers Care Microbiology Director Name Role Phone Unavailable Primary Care Provider Unavailabl e Social History Tobacco Use Types Packs/Day Years Used Date Smoking Tobacco: Never Assessed Education Answer Date Recorded Are you interested in more education? Not on mikala e 12/21/2022 Are you concerned about learning? Not on file 12/21/2022 No 12/21/2022 No 12/21/2022 Digital Access Answer Date Recorded No 01/21/2023 No 01/21/2023 Reliable internet access at home? Not on file 01/21/2023 Device with a working camera? Not on file Comments Unknown Sex and Gender Information Value Date Recorded Sex Assigned at Not on file Legal Sex Female 12:00 PM EST Gender Identity Not on file Sexual Orientation Not on file Plan of Treatment Not on file Medical Devices Not on file Additional Source Comments The information contained in this document represents components of the legal health record. It is not the complete legal health record.[facility]
--- OUTSIDE RECORDS SUMMARY | 2025-04-29 00:08 | XMS_ITS | Encounter Summary ---
Author Organization [facility] [address] Address [address] [place] [address] Care Team Providers Care Elementary [employer] Music Teacher Name Role Phone Grady Helm MD Primary Care Provider +1- [phone] Encounter Details Date Type Department Care Team (Late st Contact Info) Description 01/11/[address] [facility] - Main Lab [address] [facility] [place] [address] Grady Helm MD [address] [place] [address] Heart failure, unspecified (CMS/HCC V24, CMS/HCC V28) [...] Associated Diagnosis Comments COMPLETE BLOOD COUNT Routine 01/11/2025 6:12 AM EDT Heart failure, unspecified (CMS/HCC V24, CMS/HCC V28) BASIC METABOLIC PANEL Routine 01/11/2025 6:12 AM EDT Heart failure, unspecified (CMS/HCC V24, CMS/HCC V28) documented in this encounter Results * (ABNORMAL) Basic metabolic panel (01/11/2025 6:12 AM EDT) Sodium 141 133 - 145 mmol/L LAB CHEMISTRY METHOD 01/11/2025 10:47 AM [facility] LAB Potassium 3.7 3.5 - 5.5 mmol/L LAB CHEMISTRY METHOD 01/11/2025 10:47 AM [facility] Chloride 106 96 - 110 mmol/L LAB CHEMISTRY METHOD 01/11/2025 10:47 AM [facility] CO2 25 21 - 32 mmol/L LAB CHEMISTRY METHOD 01/11/2025 10:47 AM [facility] Anion Gap 10 3 - 11 LAB CHEMISTRY METHOD 01/11/2025 10:47 AM [facility] Glucose 67(L) 70 - 100 mg/dL LAB CHEMISTRY METHOD 01/11/2025 10:47 AM [facility] BUN 23 5 - 25 mg/dL LAB CHEMISTRY METHOD 01/11/2025 10:47 AM [facility] Creatinine 1.64(H) 0.50 - 1.10 mg/dL LAB CHEMISTRY METHOD 01/11/2025 10:47 AM [facility] LAB eGFR 33(L) >=60 mL/min/1. 73m2 LAB CHEMISTRY METHOD 01/11/2025 10:47 AM [facility] LAB Comment:Calculation based on the Chronic Kidney Disease Epidemiology Collaboration (CKD-EPI) equation refit without adjustment for race. BUN/Creatinine Ratio 14.0 LAB CHEMISTRY METHOD 01/11/2025 10:47 AM [facility] Calcium 7.6(L) 8.5 - 10.5 mg/dL LAB CHEMISTRY METHOD 01/11/2025 10:47 AM [facility] LAB Blood Venous blood specimen / Unknown Venipuncture / Unknown 01/11/2025 6:12 AM EDT 01/11/2025 8:46 AM EDT us Grady Helm MD LAB BLOOD ORDERABLES Final Result [facility] [address] [place] [address], [place] [phone] * (ABNORMAL) Complete blood count (01/11/2025 6:12 AM EDT) WBC 3.7(L) 4.8 - 10.8 K/mcL LAB HEMETOLOGY METHOD 01/11/2025 10:00 AM EDT [facility] RBC 2.70(L) 3.80 - 4.80 M/mcL LAB HEMETOLOGY METHOD 01/11/2025 10:00 AM [facility] Hemoglobin 7.0(L) 11.5 - 16.0 g/dL LAB HEMETOLOGY METHOD 01/11/2025 10:00 AM [facility] LAB Hematocrit 23.4(L) 35.0 - 47.0 % LAB HEMETOLOGY METHOD 01/11/2025 10:00 AM [facility] LAB MCV 87.3 79.0 - 98.0 FL LAB HEMETOLOGY METHOD 01/11/2025 10:00 AM [facility] LAB MCH 26.1(L) 27.0 - 32.0 pcg LAB HEMETOLOGY METHOD 01/11/2025 10:00 AM [facility] LAB MCHC 29.9(L) 32.0 - 37.0 g/dL LAB HEMETOLOGY METHOD 01/11/2025 10:00 AM [facility] LAB RDW 18.6(H) 11.0 - 15.0 % LAB HEMETOLOGY METHOD 01/11/2025 10:00 AM [facility] LAB Platelets 196 130 - 400 K/mcL LAB HEMETOLOGY METHOD 01/11/2025 10:00 AM EDT [facility] MPV 10.0 7.0 - 11.0 FL LAB HEMETOLOGY METHOD 01/11/2025 10:00 AM EDT [facility] NRBC 0.0 <1.0 % LAB HEMETOLOGY METHOD 01/11/2025 10:00 AM EDT [facility] NRBC Absolute 0.00 <0.10 K/mcL LAB HEMETOLOGY METHOD 01/11/2025 10:00 AM EDT [facility] Blood Venous blood specimen / Unknown Venipuncture / Unknown 01/11/2025 6:12 AM EDT 01/11/2025 8:46 AM EDT Grady Helm MD LAB BLOOD ORDERABLES Final Result [facility] [address] [place] [address], documented in this encounter Visit Diagnoses Diagnosis Heart failure, unspecified (CMS/HCC V24, CMS/HCC V28) Heart failure, unspecified documented in this encounter Care Teams Elementary [employer] Music Teacher Relationship Specialty Start Date End Date Grady Helm MD [address] [place] [address] PCP - General Internal Medicine 01/03/25 documented as of this encounter
--- OUTSIDE RECORDS SUMMARY | 2025-04-29 00:08 | XMS_ITS | Encounter Summary ---
Author Organization [facility] Address [address] [place] [address] Care Team Providers Care Dock Operator Name Role Phone Grady Helm MD Primary Care Provider +1- [phone] Encounter Details Date Type Department Care Team (Late st Contact Info) Description 01/20/2025 Lab Requisition [facility] - Main Lab [address] [facility] [place] [address] Grady Helm MD [address] [place] [address] Heart failure, unspecified (CMS/HCC V24, CMS/HCC V28) [...] Procedure Name Priority Date/Time Associated Diagnosis Comments B-TYPE NATRIURETIC PEPTIDE Routine 01/20/2025 6:36 AM EDT Heart failure, unspecified (CMS/HCC V24, CMS/HCC V28) documented in this encounter Results * (ABNORMAL) B-type natriuretic peptide (01/20/2025 6:36 AM EDT) BNP 193(H) <=100 pcg/mL LAB CHEMISTRY METHOD 01/20/2025 8:58 AM EDT [facility] Blood Venous blood specimen / Unknown Venipuncture / Unknown 01/20/2025 6:36 AM EDT 01/20/2025 7:16 AM EDT Grady Helm MD LAB BLOOD ORDERABLES Final Result [facility] [address] [place] [address], documented in this encounter Visit Diagnoses Diagnosis Heart failure, unspecified (CMS/HCC V24, CMS/HCC V28) Heart failure, unspecified documented in this encounter Care Teams Dock Operator Relationship Specialty Start Date End Date Grady Helm MD [address] [place] [address] PCP - General Internal Medicine 01/03/25 documented as of this encounter
[2025-04-29 00:12] VITALS: BP 196/93; PULSE 84; RESP 15; O2SAT 100
[2025-04-29 00:21] LABS: MANUAL DIFF FLAG NO
[2025-04-29 00:24] LABS: Hematocrit 26.2 % (37.0-47.0); Hemoglobin 8.8 g/dl (12.0-16.0); Imm Gran Abs Auto 0.01 X10*3/uL (0.00-0.03); Imm Gran Pct Auto 0.2 % (0.0-0.4); Lymphocytes Absolute Auto 1.2 X10*3/uL (1.2-4.9); Mean Corpuscular HGB Conc 33.6 g/dl (31.0-35.0); Mean Corpuscular Hemoglobin 30.1 pg (27.0-33.0); Mean Corpuscular Volume 89.7 fL (80.0-98.0); NRBC Abs Auto 0.000 X10*3/uL (0.0-0.012); NRBC Pct Auto 0.0 /100WBC (0.0-0.2); Platelet Count 232 X10*3/uL (160-400); Red Blood Count 2.92 X10*6/uL (4.20-5.50); White Blood Count 4.3 X10*3/uL (4.8-10.8)
[2025-04-29 00:36] LABS: Alanine Aminotransferase 7 U/L (0-31); Albumin Level 4.2 g/dL (3.5-5.0); Alkaline Phosphatase 72 U/L (39-117); Anion Gap 20 (12-20); Aspartate Amino Transferase 32 U/L (5-31); Blood Urea Nitrogen 29 mg/dL (9-16); Calcium 9.3 mg/dL (8.4-10.2); Carbon Dioxide 21 mmol/L (22-29); Chloride 108 mmol/L (96-108); Creatinine Clr Calc Pharmacy 57.6; Estimated Glomerular Filt Rate 58; Potassium 3.6 mmol/L (3.3-5.1); Sodium 145 mmol/L (135-145); Total Protein 7.0 g/dL (6.5-8.0)
[2025-04-29 00:42] LABS: B Type Natriuretic Peptide 173 pg/mL (<100)
[2025-04-29 00:42] LABS: Troponin-I High Sensitivity 12.5 ng/L (<3.5-17.0)
[2025-04-29 01:13] VITALS: BP 196/93
[2025-04-29 02:27] VITALS: BP 206/93; PULSE 82; RESP 16; TEMP 36.8; O2SAT 100
[2025-04-29 03:29] VITALS: BP 189/93; PULSE 85; RESP 19; O2SAT 100
[2025-04-29 04:23] VITALS: BP 190/93; PULSE 89; RESP 16; TEMP 36.8; O2SAT 99
[2025-04-29 04:25] VITALS: BP 190/93; PULSE 89; RESP 16; TEMP 36.8; O2SAT 99
== END 2025-04-29 06:41 | disposition home or self-care (01) ==
PROVIDERS: Physician Assistant; Emergency Provider Emergency Medicine; PCP Internal Medicine
DX: J18.9 Pneumonia, unspecified organism (principal); I13.0 Hypertensive heart and chronic kidney disease with heart failure and stage 1 through stage 4 chronic kidney disease, or unspecified chronic kidney disease; D63.8 Anemia in other chronic diseases classified elsewhere; I50.32 Chronic diastolic (congestive) heart failure; J44.9 Chronic obstructive pulmonary disease, unspecified; N18.31 Chronic kidney disease, stage 3a; Z79.899 Other long term (current) drug therapy
CPT/HCPCS: 36415; 71045; 80053; 83880; 84484; 85025; 93005; 99283; 99284

== ENCOUNTER → 2025-04-28 23:56 | Outpatient (BNV) | payer SELFPAY | PROVIDERS: Emergency Provider Emergency Medicine; PCP Internal Medicine; Visit Provider Internal Medicine Cardiovascular Disease | DX: R94.31 Abnormal electrocardiogram [ECG] [EKG] (principal); R06.02 Shortness of breath | CPT/HCPCS: 93010 ==

== ENCOUNTER → 2025-04-29 00:16 | Outpatient (BNV) | payer SELFPAY | PROVIDERS: Emergency Provider Emergency Medicine; PCP Internal Medicine; Visit Provider Radiology Diagnostic Radiology | DX: R06.02 Shortness of breath (principal) | CPT/HCPCS: 71045 ==

== ENCOUNTER 2025-06-30 13:59 | Outpatient (AMB) | payer MEDICARE, SELFPAY ==
--- OUTSIDE RECORDS SUMMARY | 2024-08-03 05:50 | XMS_ITS ---
Author Organization [facility] Address [address] [place] [phone] Care Team Providers Care Histology Assistant Name Role Phone Billie Maguire MD Primary Care Provider Deric Gambino [phone] REASON FOR VISIT Patient presents today for anemia Encounters Encounter Location Date Provider Diagnosis [facility] [address] [place] [phone] 08/03/2024 Derci Aquino Plan Of Treatment No Information Progress Notes * RACHEL KELLYDOB:09/1949 (75 yo F)Acc No.[id number]:08/03/2024 Progress Notes Patient: RACHEL OCHOA Provider: Razia Aquino MD :1950 A ge:74 Y S ex:Female Date:08/03/2024 Address:[address] [place], [place] [id number] Pcp:Billie Maguire MD Subjective: * Chief Complaints: * 1 . Patient presents today for anemia. * Medical History: Objective: * Vitals: Assessment: Plan: * Treatment: * * The named appointment provid er may or may not be the originator of this progress note, and it is not deemed complete until electronically signed by the appointment provider. Sign off status: Pending * Provider: Razia Aquino MD Date: 1 10/04/2023 Generated for Printi ng/Faxing/eTransmitting on: 08/30/2024 05:08 PM EST
[2025-06-30 14:08] VITALS: BP 148/78; PULSE 92; RESP 20; TEMP 36.5; O2SAT 99; BMI 34.0
--- NOTE | 2025-06-30 14:08 | MHC.PC.OV ---
Vital Signs 06/30/25 14:08 Height 5 ft 4.5 in Weight 201 lb BMI 34.0 BP 148/78 H Blood Pressure Location Lt brachial Position Sitting Respiration 20 Pulse 92 Pulse Source Pulse Oximeter Temp 97.7 F Temp Source Oral Pulse Oximetry (%) 99 Oxygen Delivery Method Room Air Intake Visit Reasons: Rehab followup-paying out of pocket for this visit Intake Note: Pt is here today for a Rehab follow up visit. Pt states that she has no appetite. Pt's does not sleep well and her Bp has been running high. Allergies shrimp Allergy (Severe, Verified 06/30/25 14:11) Anaphylaxis Penicillins Allergy (Unknown, Verified 06/30/25 14:11) UNKNOWN levofloxacin (From Levaquin) Allergy (Verified 06/30/25 14:11) Hypertension paroxetine (From Paxil) Allergy (Verified 06/30/25 14:11) Unknown prochlorperazine (From Compazine) Allergy (Verified 06/30/25 14:11) Unknown green grapes Allergy (Uncoded 06/30/25 14:11) itchy and rash tripoly phosphate Allergy (Uncoded 06/30/25 14:11) Anaphylaxis Medication List - Last Reconciled 06/30/25 by Billie Maguire MD [3 in 1 commode Displaced trimalleolar fracture of left lower leg, initial encounter for closed fracture] albuterol sulfate 90 mcg/actuation 2 puffs inhalation Q6H PRN amlodipine 5 mg PO DAILY ammonium lactate 5% (Lac-Hydrin Five) 1 appl topical BID atorvastatin 80 mg PO DAILY carvedilol 25 mg PO BID [Chair Glider As directed Urgent request US medical supply RE: Remi Flores Phone number: [phone]] cholecalciferol (vitamin D3) (Vitamin D3) 25 mcg PO DAILY clonidine HCl 0.1 mg PO BID epinephrine 0.3 mg (0.3 mL) IM Q20M PRN ferrous sulfate 325 mg PO BID fluticasone propion-salmeterol 250-50 mcg/dose (Wixela Inhub) 1 inh inhalation BID fluticasone propionate 50 mcg/actuation (Flonase Allergy Relief) 1 spray intranasal BID furosemide 40 mg PO DAILY furosemide (Lasix) 20 mg PO DAILY gabapentin 100 mg PO TID lidocaine 4% 1 patch topical BID pantoprazole 40 mg PO QAM prednisone 4 tablets p.o. q.d. for 3 days then 3 tablets p.o. q.d. for 3 days then 2 tablets p.o. q.d. for 3 days then 1 tablet p.o. q.d. for 3 days orally daily; [Raised toilet seat As directed] sertraline 50 mg PO DAILY Tobacco use date assessed: 06/30/25 Fall risk assessment: 2 + Falls in past year Last assessed Fall Risk: 06/30/25 Dental Screening Dental Screen Date: 06/30/25 Did you have a dental visit in the last 12 months?: No Did you have a dental problem in the last 6 months where you did not have access to dental care?: No Was dental information given to patient?: Patient declined HPI Rehab followup-paying out of pocket for this visit HPI Details Patient presents complaining of worsening shortness or breath and wheezing for the last few months. Patient was admitted to [facility] in April and treated for community-acquired pneumonia. Patient was in the rehab for general deconditioning ambulating because of chronic ankle pain. Patient denies chest pains palpitations but reports PND and orthopnea. She has been sleeping in the chair. Patient has been taking Wixela and using albuterol inhaler as needed with only temporary relief. 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 [facility] Medical History (Updated 06/30/25 @ 22:00 by Billie Maguire MD) Anemia Chronic kidney disease (CKD) stage G3a/A1, moderately decreased glomerular filtration rate (GFR) between 45-59 mL/min/1.73 square meter and albuminuria creatinine ratio less than 30 mg/g (HFpEF) heart failure with preserved ejection fraction Surgical wound breakdown Psoriasis Cellulitis of right ankle Diverticulosis GERD (gastroesophageal reflux disease) Occult fracture Hepatic steatosis COPD (chronic obstructive pulmonary disease) Uncontrolled hypertension HTN (hypertension) Other and unspecified hyperlipidemia Essential hypertension Inguinal hernia Sliding hiatal hernia COPD (chronic obstructive pulmonary disease) Asthma Gout Arthritis Hypercholesteremia Wound cellulitis Surgical History (Updated 06/30/25 @ 15:06 by Billie Maguire MD) Status post ORIF of fracture of ankle History of ankle surgery Hx of tonsillectomy Hx of rotator cuff surgery History of total left knee replacement Family History Father CHF (congestive heart failure) Mother CHF (congestive heart failure) Social History Household Members: Family Household Members Other:: lives with mother, Housing: House Do you presently have visiting nurse or other home services: No Alcohol intake: current Alcohol intake frequency: does not drink Alcohol type: wine Comment: pt rings appropriately Patient Tobacco Use Status: Former Tobacco user e-Cigarette/Vaping Use: Never Used Second Hand Smoke Exposure: No Advance Directives Date on File: 12/04/20 service: No Current occupational status: employed 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 1. Little interest or pleasure in doing things: not at all 2. Feeling down, depressed, or hopeless: not at all 3. Trouble falling or staying asleep, or sleeping too much: nearly every day 4. Feeling tired or having little energy: nearly every day 5. Poor appetite or overeating: nearly every day 6. Feeling bad about yourself - or that you are a failure or have let yourself or your family down: not at all 7. Trouble concentrating on things, such as reading the newspaper or watching television: not at all 8. Moving or speaking so slowly that other people could have noticed. Or the opposite - being so fidgety or restless that you have been moving around a lot more than usual: not at all 9. Thoughts that you would be better off or of hurting yourself in some way: not at all Total score: 9 Depression Screening Interpretation: Positive (Patient will restart sertraline) Depression Screening Follow-up: Existing condition and In treatment Depression Screening Done: Yes 89639 - PHQ-9 Billing: Yes Source: Developed by Drs. Deric Huizar, Valentina Larson, Wilmer Hampton and colleagues, with an educational solo from [employer]. Thrive Questionnaire Date Thrive assessed: 06/06/25 I am a: Patient What is your living situation today?: I have a steady place to live Within the past 12 months, did the food you bought not last and you didn't have the money to get more?: Never true Within the past 12 months, did you worry whether your food would run out before you got money to buy more?: Never true Do you have trouble paying for medicines?: No Do you have trouble getting transportation to medical appointments?: No Do you have trouble paying your heating and electricity bill?: No Do you have trouble taking care of your child, family member or friend?: No Do you have trouble with day-to-day activities such as bathing, preparing meals, shopping, managing finances, etc.?: I choose not to answer this question Are you currently unemployed and looking for a job?: I choose not to answer this question Are you interested in more education?: I choose not to answer this question Please select the resources that you would like help with: Transportation Currently or been in a relationship where the following occur: No concerns reported THRIVE Score: 0 AUDIT C Alcohol Use Questionnaire (AUDIT-C) 2. How many drinks containing alcohol do you have on a typical day when you are drinking?: 1 or 2 Total Score: 0 PIERRE-7 AMB Questionnaire PIERRE-7 Date PIERRE - 7 assessed: 06/30/25 Feeling nervous, anxious, or on edge: 2 = More than half the days Not being able to stop or control worryin = More than half the days Worrying too much about different things: 2 = More than half the days Trouble relaxin = Nearly every day Being so restless that it is hard to sit still: 1 = Several days Becoming easily annoyed or irritable: 1 = Several days Feeling afraid as if something awful might happen: 0 = Not at all Total PIERRE-7 score (0-4 normal; 5-9 mild; 10-14 moderate; 15-21 severe): 11 Source: Developed by Drs. Deric Huizar, Valentina Larson, Wilmer Hampton and colleagues, with an educational solo from [employer]. PIERRE-7 Assessment Billing PIERRE-7 Assessment Tool: PIERRE-7 Assessment 17380 Review of Systems Const All systems reviewed & are unremarkable except as noted in HPI and below ENT Reports no additional complaints Card Reports no additional complaints Resp Reports no additional complaints GI Reports no additional complaints Reports no additional complaints Physical exam (Primary Care) Vital Signs: Last Vital Signs Temp 97.7 F 06/30/25 14:08 Pulse 92 06/30/25 14:08 Resp 20 06/30/25 14:08 BP 148/78 H 06/30/25 14:08 Pulse Ox 99 06/30/25 14:08 Oxygen Delivery Method Room Air 06/30/25 14:08 BMI result Body Mass Index 34.0 Tobacco/Smoking Status: Tobacco use Status Tobacco use date assessed 06/30/25 06/30/25 14:24 Patient Tobacco Use Status Former Tobacco user 06/30/25 14:09 e-Cigarette/Vaping Use Never Used 06/30/25 14:09 PHQ-9: PHQ-9 Score PHQ-9: Total score 9 06/30/25 15:13 Depression Screening Interpretation: Positive (Patient will restart sertraline) Depression Screening Follow-up: Existing condition and In treatment Thrive Assessment: Date of Thrive Assessment Date Thrive assessed 06/06/25 06/30/25 14:09 Currently or been in a relationship where the following occur: No concerns reported Const General: no acute distress HENMT Head: Yes normal to inspection Face and sinus: Yes normal facial exam Mouth: Normal oral and palatal mucosa present Eyes General: appearance normal, both eyes and all related structures Neck Neck: Yes no lymphadenopathy and Yes supple Resp Effort & Inspection: able to speak in complete sentences, audible wheezes and tachypneic Auscultation: wheezes and diminished lung sounds Cardio Rhythm: regular rhythm Heart sounds: S1 normal heart sound present and S2 normal heart sound present GI Inspection: Yes normal to inspection Palpation (GI): Soft to palpation Percussion: Yes normal to percussion Auscultation: normal bowel sounds Extrem Other: Nonpitting edema and chronic venous stasis changes with psoriatic rash on dorsum of both feet Office Procedures Nebulizer Treatment Nebulizer Treatment [id number]/MDI RX initial, or Nebulizer Subsequent Treatment Office Meds albuterol sulfate 2.5 mg/3 mL (0.083 %) solution for nebulization Performing Provider: Billie Maguire MD Performing Location: [facility] Administered by: Gabi Miller RN on 06/30/25 15:13 Dose Route Admin Location Dispensed Lot Number Expiration Date NDC Crane Manager 2.5 mg inhalation 3 mL [id number] 07/24/25 [id number] [facility] Coding Level of Care Code Est Pt Level 4 (28994) Diagnoses Asthma J45.909 (HFpEF) heart failure with preserved ejection fraction I50.30 Chronic kidney disease (CKD) stage G3a/A1, moderately decreased glomerular filtration rate (GFR) between 45-59 mL/min/1.73 square meter and albuminuria creatinine ratio less than 30 mg/g N18.31 Essential hypertension I10 Status post ORIF of fracture of ankle Z98.890; Z87.81 Anxiety F41.9 Shortness of breath R06.02 CPT Codes Nebulizer Treatment - Nebulizer Treatment, initial or subsequent: [id number]/MDI RX initial, or Nebulizer Subsequent Treatment ([id number]) Additional Codes PIERRE-7 Assessment Billing - PIERRE-7 Assessment Tool: PIERRE-7 Assessment 57522 ([id number]) PHQ-9 - 18044 - PHQ-9 Billing: Yes ([id number]) Assessment & Plan Assessment & Plan (1) Asthma: Code(s): J45.909 - Unspecified asthma, uncomplicated Category: Medical Plan: Prednisone taper is prescribed patient will continue Wixela and albuterol as needed and PFTs will be obtained (2) (HFpEF) heart failure with preserved ejection fraction: Comment: ECHO 2021 EF 55%, no valvular abnormalities Code(s): I50.30 - Unspecified diastolic (congestive) heart failure Category: Medical Plan: Obtain echocardiogram (3) Chronic kidney disease (CKD) stage G3a/A1, moderately decreased glomerular filtration rate (GFR) between 45-59 mL/min/1.73 square meter and albuminuria creatinine ratio less than 30 mg/g: Comment: f/u nephrology Code(s): N18.31 - Chronic kidney disease, stage 3a Category: Medical Plan: Monitor renal function follow-up with nephrology (4) Essential hypertension: Code(s): I10 - Essential (primary) hypertension Category: Medical Plan: Continue current medications (5) Status post ORIF of fracture of ankle: Comment: 2021, on gabapentin for chronic pain management Code(s): Z98.890 - Other specified postprocedural states; Z87.81 - Personal history of (healed) traumatic fracture Category: Surgical Plan: Restart gabapentin 100 mg 3 times a day (6) Anxiety: Code(s): F41.9 - Anxiety disorder, unspecified Category: Medical Plan: Restart sertraline (7) Shortness of breath: Comment: Multifactorial, Code(s): R06.02 - Shortness of breath Category: Medical Plan: Obtain chest x-ray echo, patient will return for fasting blood work including BNP and D-dimers, obtain PFTs, follow-up in 3 weeks Orders: Orders XR chest 1V Today J45.909 - Unspecified asthma, uncomplicated CA echo transthoracic complete Today I50.30 - Unspecified diastolic (congestive) heart failure Comprehensive Met. Panel Today I50.30 - Unspecified diastolic (congestive) heart failure Complete Blood Count Auto Diff Today I50.30 - Unspecified diastolic (congestive) heart failure Reticulocyte Count Today I50.30 - Unspecified diastolic (congestive) heart failure NT Pro B Type Natriuretic Pept Today I50.30 - Unspecified diastolic (congestive) heart failure D Dimer High Sensitivity Today I50.30 - Unspecified diastolic (congestive) heart failure PFT pulmonary function test Today J45.909 - Unspecified asthma, uncomplicated IRON PROFILE Today I50.30 - Unspecified diastolic (congestive) heart failure Vitamin B12 and Folate Today I50.30 - Unspecified diastolic (congestive) heart failure TSH reflex Free T4 Today I50.30 - Unspecified diastolic (congestive) heart failure AMB Nebulizer Treatment Today J45.909 - Unspecified asthma, uncomplicated Medications: New sertraline 50 mg PO DAILY 90 tabs 0RF prednisone 4 tablets p.o. q.d. for 3 days then 3 tablets p.o. q.d. for 3 days then 2 tablets p.o. q.d. for 3 days then 1 tablet p.o. q.d. for 3 days orally daily; 30 tabs 0RF Changed From gabapentin 100 mg PO TID 2 weeks 42 caps 0RF To gabapentin 100 mg PO TID 90 caps 1RF
--- OUTSIDE RECORDS SUMMARY | 2025-06-30 17:08 | XMS_ITS | Encounter Summary ---
Author Organization [facility] Address [address] [place] [address] Care Team Providers Care Brush Fabrication Supervisor Name Role Phone Grady Helm MD Primary Care Provider [phone] Encounter Details Date Type Department Care Team (Late st Contact Info) Description 01/11/2025 Lab Requisition [facility] [address] [facility] [place] [address] Grady Helm MD [address] [place] [address] Heart failure, unspecified (CMS/HCC V24, CMS/HCC V28) [...] mmol/L LAB CHEMISTRY METHOD 01/11/2025 10:[address] [facility] Potassium 3.7 3.5 - 5.5 mmol/L LAB CHEMISTRY METHOD 01/11/2025 10:[address] [facility] Chloride 106 96 - 110 mmol/L LAB CHEMISTRY METHOD 01/11/2025 10:[address] [facility] CO2 25 21 - 32 mmol/L LAB CHEMISTRY METHOD 01/11/2025 10:[address] [facility] Anion Gap 10 3 - 11 LAB CHEMISTRY METHOD 01/11/2025 10:[address] [facility] Glucose 67(L) 70 - 100 mg/dL LAB CHEMISTRY METHOD 01/11/2025 10:[address] [facility] BUN 23 5 - 25 mg/dL LAB CHEMISTRY METHOD 01/11/2025 10:[address] [facility] Creatinine 1.64(H) 0.50 - 1.10 mg/dL LAB CHEMISTRY METHOD 01/11/2025 10:[address] [facility] eGFR 33(L) >=60 mL/min/1. 73m2 LAB CHEMISTRY METHOD 01/11/2025 10:[address] [facility] Comment:Calculation based on the Chronic Kidney Disease Epidemiology Collaboration (CKD-EPI) equation refit without adjustment for race. BUN/Creatinine Ratio 14.0 LAB CHEMISTRY METHOD 01/11/2025 10:[address] [facility] Calcium 7.6(L) 8.5 - 10.5 mg/dL LAB CHEMISTRY METHOD 01/11/2025 10:[address] [facility] Blood Venous blood specimen / Unknown Venipuncture / Unknown 01/11/2025 6:12 AM EDT 01/11/2025 8:46 AM EDT us Grady Helm MD LAB BLOOD ORDERABLES Final Result [facility] [address] [place] [address], [place] [phone] * (ABNORMAL) Complete blood count (01/11/2025 6:12 AM EDT) WBC 3.7(L) 4.8 - 10.8 K/mcL LAB HEMETOLOGY METHOD 01/11/2025 10:00 AM EDT [facility] RBC 2.70(L) 3.80 - 4.80 M/mcL LAB HEMETOLOGY METHOD 01/11/2025 10:[address] [facility] Hemoglobin 7.0(L) 11.5 - 16.0 g/dL LAB HEMETOLOGY METHOD 01/11/2025 10:[address] [facility] Hematocrit 23.4(L) 35.0 - 47.0 % LAB HEMETOLOGY METHOD 01/11/2025 10:[address] [facility] MCV 87.3 79.0 - 98.0 FL LAB HEMETOLOGY METHOD 01/11/2025 10:[address] [facility] MCH 26.1(L) 27.0 - 32.0 pcg LAB HEMETOLOGY METHOD 01/11/2025 10:[address] [facility] MCHC 29.9(L) 32.0 - 37.0 g/dL LAB HEMETOLOGY METHOD 01/11/2025 10:[address] [facility] RDW 18.6(H) 11.0 - 15.0 % LAB HEMETOLOGY METHOD 01/11/2025 10:[address] [facility] Platelets 196 130 - 400 K/mcL LAB HEMETOLOGY METHOD 01/11/2025 10:00 AM EDT [facility] MPV 10.0 7.0 - 11.0 FL LAB HEMETOLOGY METHOD 01/11/2025 10:00 AM EDT [facility] NRBC 0.0 <1.0 % LAB HEMETOLOGY METHOD 01/11/2025 10:00 AM EDT [facility] NRBC Absolute 0.00 <0.10 K/mcL LAB HEMETOLOGY METHOD 01/11/2025 10:00 AM EDT [facility] Blood Venous blood specimen / Unknown Venipuncture / Unknown 01/11/2025 6:12 AM EDT 01/11/2025 8:46 AM EDT Grady Helm MD LAB BLOOD ORDERABLES Final Result [facility] [address] [place] [address], documented in this encounter Visit Diagnoses Diagnosis Heart failure, unspecified (CMS/HCC V24, CMS/HCC V28) Heart failure, unspecified documented in this encounter Care Teams Brush Fabrication Supervisor Relationship Specialty Start Date End Date Grady Helm MD [address] [place] [id number] PCP - General Internal Medicine 01/03/25 documented as of this encounter
--- OUTSIDE RECORDS SUMMARY | 2025-06-30 17:08 | XMS_ITS | Clinical Summary ---
Author Organization [facility] Address [address] [place] [address] Care Team Providers Care Dip Stand Loader Name Role Phone Unavailable Primary Care Provider [...] DAY 10/16/2017 Active ergocalciferol (VITAMIN D2) capsule 32059 units TAKE ONE CAPSULE BY MOUTH EVERY [...] history exists COVID-19 Vaccine (2 - season) 2025 08/29/2023 Influenza Vaccine (#1) 2025 , 05/26/2020, [...]
--- OUTSIDE RECORDS SUMMARY | 2025-06-30 17:08 | XMS_ITS | Encounter Summary ---
Author Organization [facility], Address [address] [place] [address] Phone Care Team Providers Care Steep Tender Name Role Phone Dai Ortega DO Primary Care Provider Reason for Visit * Reason Comments Med Refill Encounter Details Date Type Department Care Team (Late st Contact Info) Description 02/26/2021 Refill [facility] [address] [place] [address] Conrad Shah MD [address] [place] [id number] Social History Tobacco Use Types Packs/Day Years [...] on filedocumented in this encounter Care Teams Steep Tender Relationship Specialty Start Date End Date Dai Ortega DO PCP - General 06/29/19 04/24/21 documented as of this encounter
--- OUTSIDE RECORDS SUMMARY | 2025-06-30 17:08 | XMS_ITS | Clinical Summary ---
Author Organization [address] Address [address] [place] [phone] Phone Care Team Providers Care Home Specialist Name Role Phone Grady Helm MD Primary Care Provider +1- [phone] Medications traZODone (DESYREL) 50 mg tablet Take [...] back pain DX:Low back pain Neuromuscular disorder ([facility] V24, [facility] V28) DX:Neuromuscular disorder (H [facility]) Scoliosis DX:Scoliosis COPD (chronic obstructive pu lmonary disease) ([facility] V24, [facility] V28) DX:COPD (chronic o bstructive pulmonary disease) [...] Health Maintenance Due Date Last Done Comments Colorectal Cancer Screening: Colonoscopy 1950 COVID-19 Vaccine (#1) 01/24/1957 Hepatitis A Vaccines (1 of 2 - Risk 2-dose series) 01/24/1971 RSV Immunization Adult Patients (1 - Risk 50-74 years 1-dose series) 01/24/2002 Hepatitis B Vaccines (1 of 3 - Risk 3-dose series) 2012 Zoster Vaccines (1 of 2) 09/19/2020 07/25/2020 Breast Cancer Screening 10/14/2020 10/14/2018 Falls Risk Assessment 07/28/2022 Hepatitis C Screening [...] PANEL Routine 02/08/2025 5:10 AM EDT Hypokalemia LIPID PANEL WITH REFLEX TO DIRECT LDL Routine 02/07/2025 5:22 AM EDT Vitamin D deficiency, unspecified Anemia, unspecified Chronic kidney disease, unspecified Heart failure, unspecified ([facility] V24, [facility] V28) TEMITOPE SCREENING DIGITAL Routine 10/14/2018 5:09 PM EST Encounter for screening mammogram for malignant neoplasm of breast from Last 3 Months or Most Recently Relevant to Health Maintenance Results * (ABNORMAL) Basic metabolic panel (02/08/2025 5:10 AM EDT) Sodium 141 133 - 145 mmol/L LAB CHEMISTRY METHOD 02/08/2025 9:25 AM [facility] Potassium 3.4(L) 3.5 - 5.5 mmol/L LAB CHEMISTRY METHOD 02/08/2025 9:25 AM [facility] Chloride 102 96 - 110 mmol/L LAB CHEMISTRY METHOD 02/08/2025 9:25 AM [facility] CO2 31 21 - 32 mmol/L LAB CHEMISTRY METHOD 02/08/2025 9:25 AM [facility] Anion Gap 8 3 - 11 LAB CHEMISTRY METHOD 02/08/2025 9:25 AM [facility] Glucose 84 70 - 100 mg/dL LAB CHEMISTRY METHOD 02/08/2025 9:25 AM [facility] BUN 17 5 - 25 mg/dL LAB CHEMISTRY METHOD 02/08/2025 9:25 AM [facility] Creatinine 1.08 0.50 - 1.10 mg/dL LAB CHEMISTRY METHOD 02/08/2025 9:25 AM [facility] eGFR 54(L) >=60 mL/min/1. 73m2 LAB CHEMISTRY METHOD 02/08/2025 9:25 AM EDT [facility] Comment:Calculation based on the Chronic Kidney Disease Epidemiology Collaboration (CKD-EPI) equation refit without adjustment for race. BUN/Creatinine Ratio 15.7 LAB CHEMISTRY METHOD 02/08/2025 9:25 AM EDT [facility] Calcium 5.7(LL) 8.5 - 10.5 mg/dL LAB CHEMISTRY METHOD 02/08/2025 9:25 AM EDT [facility] Blood Venous blood specimen / Unknown Venipuncture / Unknown 02/08/2025 5:10 AM EDT 02/08/2025 8:12 AM EDT us Calin Mcgill MD LAB BLOOD ORDERABLES Final Resul t [facility] [address] [place] [address], [place] [phone] * (ABNORMAL) Lipid panel with reflex to direct LDL (02/07/2025 5:22 AM EDT) Cholesterol 87 0 - 200 mg/dL LAB CHEMISTRY METHOD 02/07/2025 2:04 PM EDT [facility] Triglycerides 60 0 - 150 mg/dL LAB CHEMISTRY METHOD [facility] HDL 28(L) >=40 mg/dL LAB CHEMISTRY METHOD 02/07/2025 2:04 PM EDT [facility] LDL Calculated 47 0 - 100 mg/dL LAB CHEMISTRY METHOD 02/07/2025 2:04 PM EDT [facility] VLDL Cholesterol Mo 12 mg/dL LAB CHEMISTRY METHOD 02/07/2025 2:04 PM EDT [facility] Non HDL Chol. (LDL+VLDL) 59 <145 mg/dL LAB CHEMISTRY METHOD 02/07/2025 2:04 PM EDT [facility] Chol/HDL Ratio 3.1 0.0 - 4.4 LAB CHEMISTRY METHOD 02/07/2025 2:04 PM EDT [facility] Blood Venous blood specimen / Unknown Venipuncture / Unknown 02/07/2025 5:22 AM EDT 02/07/2025 12:23 PM EDT us aClin Mcgill MD LAB BLOOD ORDERABLES Final Resul t [facility] [address] [place] [address], * TEMITOPE SCREENING DIGITAL (10/14/2018 5:09 PM EST) Anatomical Region Laterality Modality Mammography 10/14/2018 3:43 PM EST Narrative 10/14/2018 5:09 PM EST [facility] Diagnostic Imaging Department [address] [place] [address] Patient: RACHEL VIDAL/Age/Sex: 1950 - 68 - F Unit#: [id number] Location/Status: SPDIMAM/REG CLI Mnemonic/Ordering Site: DIGSC/SPMAM Ordering Physician: DAI HASKINS MD Temitope Screening Digital - 10/14/18 - 160 EXAM: Temitope Screening Digital EXAM DATE AND TIME: 10/14/2018 4:03 PM HISTORY: Screening. Sister had breast carcinoma. COMPARISON: 08/26/14, 10/26/11, 10/12/09 TECHNIQUE: CC and MLO views of both breasts were obtained using full field digital mammography. Bilateral digital breast tomosynthesis was performed in the MLO projection. Computer aided detection with the [employer] 7.2-H was employed. TISSUE DENSITY: b. There [...] Routine screening mammogram BILATERAL in 1 year. 49566, 73416 3342F, 7025F Dictating Physician: SANDY MARLEY MD Electronically Signed by: SANDY MARLEY MD Dic Date/Time: 10/14/181708 Sign date/Time: 10/14/181708 Procedure Note Sandy Marley MD - 08/14/2022 [facility] Diagnostic Imaging Department [address] [place] [id number] Patient: RACHEL VIDAL./Age/Sex: 1950 - 68 - F Unit#: [id number] Location/Status: SPDIMAM/REG CLI Mnemonic/Ordering Site: [facility] Ordering Physician: DAI HASKINS MD [facility] Screening Digital - 10/14/18 - 1603 EXAM: [facility] Screening Digital EXAM DATE AND TIME: 10/14/2018 4:03 PM HISTORY: Screening. Sister had breast carcinoma. COMPARISON: 08/26/14, 10/26/11, 10/12/09 TECHNIQUE: CC and MLO views of both breasts were obtained using fullfield digital mammography. Bilateral digital breast tomosynthesis was performedin the MLO projection. Computer aided detection with the [employer] to uas employed. TISSUE DENSITY: b. There are scattered [...] Routine screening mammogram BILATERAL in 1 year. 02933, 94323 3342F, 7069F Dictating Physician: SANDY MARLEY MD Electronically Signed by: SANDY MARLEY MD Dic Date/Time: 10/14/181708 Sign date/Time: 10/14/181708 Dai Haskins DO IMG BI PROCEDURES Final Result from Last 3 Months or Most Recently Relevant to Health Maintenance Insurance MEDICARE Susana [employer] [id number] Care Teams Home Specialist Relationship Specialty Start Date End Date Grady Helm MD [address] [place] [address] PCP - General Internal Medicine 01/03/25
--- OUTSIDE RECORDS SUMMARY | 2025-06-30 17:08 | XMS_ITS | Encounter Summary ---
Author Organization [facility] Address [address] [place] [address] Care Team Providers Care Medical Physics Professor Name Role Phone Grady Helm MD Primary Care Provider +1- [phone] Encounter Details Date Type Department Care Team (Late st Contact Info) Description 01/13/2025 Lab Requisition [facility] - Main Lab [address] [facility] [place] [address] Grady Helm MD [address] [place] [address] Anemia, unspecified Social History Tobacco Use Types [...] K/mcL LAB HEMETOLOGY METHOD 01/14/2025 12:08 PM [facility] RBC 2.70(L) 3.80 - 4.80 M/mcL LAB HEMETOLOGY METHOD 01/14/2025 12:08 PM [facility] Hemoglobin 7.3(L) 11.5 - 16.0 g/dL LAB HEMETOLOGY METHOD 01/14/2025 12:08 PM [facility] Hematocrit 23.5(L) 35.0 - 47.0 % LAB HEMETOLOGY METHOD 01/14/2025 12:08 PM [facility] MCV 85.8 79.0 - 98.0 FL LAB HEMETOLOGY METHOD 01/14/2025 12:08 PM [facility] MCH 26.6(L) 27.0 - 32.0 pcg LAB HEMETOLOGY METHOD 01/14/2025 12:08 PM [facility] MCHC 31.1(L) 32.0 - 37.0 g/dL LAB HEMETOLOGY METHOD 01/14/2025 12:08 PM [facility] RDW 18.8(H) 11.0 - 15.0 % LAB HEMETOLOGY METHOD 01/14/2025 12:08 PM [facility] Platelets 138 130 - 400 K/mcL LAB HEMETOLOGY METHOD 01/14/2025 12:08 PM [facility] MPV 10.5 7.0 - 11.0 FL LAB HEMETOLOGY METHOD 01/14/2025 12:08 PM [facility] NRBC 0.0 <1.0 % LAB HEMETOLOGY METHOD 01/14/2025 12:08 PM [facility] NRBC Absolute 0.00 <0.10 K/mcL LAB HEMETOLOGY METHOD 01/14/2025 12:08 PM [facility] Blood Venous blood specimen / Unknown Venipuncture / Unknown 01/14/2025 8:55 AM EDT 01/14/2025 10:57 AM EDT Grady Helm MD LAB BLOOD ORDERABLES Final Result [facility] [address] [place] [address], documented in this encounter Visit Diagnoses Diagnosis Anemia, unspecified documented in this encounter Care Teams Medical Physics Professor Relationship Specialty Start Date End Date Grady Helm MD [address] [place] [id number] PCP - General Internal Medicine 01/03/25 documented as of this encounter
--- OUTSIDE RECORDS SUMMARY | 2025-06-30 17:08 | XMS_ITS | Encounter Summary ---
Author Organization [facility] Address [address] [place] [address] Care Team Providers Care Vendor Management Specialist Name Role Phone Grady Helm MD Primary Care Provider +1- [phone] Encounter Details Date Type Department Care Team (Late st Contact Info) Description 01/08/[address] [facility] - Main Lab [address] [facility] [place] [address] Grady Helm MD [address] [place] [address] Cellulitis, unspecified Social History Tobacco Use Types [...] mmol/L LAB CHEMISTRY METHOD 01/10/2025 10:32 AM [facility] Potassium 3.5 3.5 - 5.5 mmol/L LAB CHEMISTRY METHOD 01/10/2025 10:32 AM [facility] Chloride 104 96 - 110 mmol/L LAB CHEMISTRY METHOD 01/10/2025 10:32 AM [facility] CO2 25 21 - 32 mmol/L LAB CHEMISTRY METHOD 01/10/2025 10:32 AM [facility] Anion Gap 9 3 - 11 LAB CHEMISTRY METHOD 01/10/2025 10:32 AM [facility] Glucose 69(L) 70 - 100 mg/dL LAB CHEMISTRY METHOD 01/10/2025 10:32 AM [facility] BUN 23 5 - 25 mg/dL LAB CHEMISTRY METHOD 01/10/2025 10:32 AM [facility] Creatinine 1.57(H) 0.50 - 1.10 mg/dL LAB CHEMISTRY METHOD 01/10/2025 10:32 AM [facility] eGFR 35(L) >=60 mL/min/1. 73m2 LAB CHEMISTRY METHOD 01/10/2025 10:32 AM [facility] Comment:Calculation based on the Chronic Kidney Disease Epidemiology Collaboration (CKD-EPI) equation refit without adjustment for race. BUN/Creatinine Ratio 14.6 LAB CHEMISTRY METHOD 01/10/2025 10:32 AM [facility] Calcium 8.0(L) 8.5 - 10.5 mg/dL LAB CHEMISTRY METHOD 01/10/2025 10:32 AM [facility] Blood Venous blood specimen / Unknown Venipuncture / Unknown 01/10/2025 7:51 AM EDT 01/10/2025 9:39 AM EDT us Grady Helm MD LAB BLOOD ORDERABLES Final Result [facility] [address] [place] [address], * (ABNORMAL) Complete blood count (01/10/2025 7:51 AM EDT) WBC 3.5(L) 4.8 - 10.8 K/mcL LAB HEMETOLOGY METHOD 01/10/2025 10:52 AM EDT [facility] RBC 2.70(L) 3.80 - 4.80 M/mcL LAB HEMETOLOGY METHOD 01/10/2025 10:52 AM EDT [facility] Hemoglobin 7.2(L) 11.5 - 16.0 g/dL LAB HEMETOLOGY METHOD 01/10/2025 10:52 AM EDT [facility] Hematocrit 23.3(L) 35.0 - 47.0 % LAB HEMETOLOGY METHOD 01/10/2025 10:52 AM EDT [facility] MCV 86.3 79.0 - 98.0 FL LAB HEMETOLOGY METHOD 01/10/2025 10:52 AM EDT [facility] MCH 26.7(L) 27.0 - 32.0 pcg LAB HEMETOLOGY METHOD 01/10/2025 10:52 AM EDT [facility] MCHC 30.9(L) 32.0 - 37.0 g/dL LAB HEMETOLOGY METHOD 01/10/2025 10:52 AM EDT [facility] RDW 18.5(H) 11.0 - 15.0 % LAB HEMETOLOGY METHOD 01/10/2025 10:52 AM EDT [facility] Platelets 227 130 - 400 K/mcL LAB HEMETOLOGY METHOD 01/10/2025 10:52 AM EDT [facility] MPV 9.6 7.0 - 11.0 FL LAB HEMETOLOGY METHOD 01/10/2025 10:52 AM EDT [facility] NRBC 0.0 <1.0 % LAB HEMETOLOGY METHOD 01/10/2025 10:52 AM EDT [facility] NRBC Absolute 0.00 <0.10 K/mcL LAB HEMETOLOGY METHOD 01/10/2025 10:52 AM EDT [facility] Blood Venous blood specimen / Unknown Venipuncture / Unknown 01/10/2025 7:51 AM EDT 01/10/2025 9:39 AM EDT Grady Helm MD LAB BLOOD ORDERABLES Final Result [facility] [address] [place] [address], documented in this encounter Visit Diagnoses Diagnosis Cellulitis, unspecified documented in this encounter Care Teams Vendor Management Specialist Relationship Specialty Start Date End Date Grady Helm MD [address] [place] [address] PCP - General Internal Medicine 01/03/25 documented as of this encounter
--- OUTSIDE RECORDS SUMMARY | 2025-06-30 17:08 | XMS_ITS | Encounter Summary ---
Author Organization [facility] Address [address] [place] [address] Care Team Providers Care Remelt Pan Tank Operator Name Role Phone Grady Helm MD Primary Care Provider +1- [phone] Encounter Details Date Type Department Care Team (Late st Contact Info) Description 01/04/2025 Lab Requisition [facility] - Main Lab [address] [facility] [place] [address] Grady Helm MD [address] [place] [address] Heart failure, unspecified (CMS/HCC V24, CMS/HCC V28); [...] Complete blood count (01/05/2025 5:54 AM EDT) [facility] WBC 5.9 4.8 - 10.8 K/mcL LAB HEMETOLOGY METHOD 01/05/2025 8:51 AM [facility] RBC 2.80(L) 3.80 - 4.80 M/mcL LAB HEMETOLOGY METHOD 01/05/2025 8:51 AM [facility] Hemoglobin 7.5(L) 11.5 - 16.0 g/dL LAB HEMETOLOGY METHOD 01/05/2025 8:51 AM [facility] Hematocrit 24.9(L) 35.0 - 47.0 % LAB HEMETOLOGY METHOD 01/05/2025 8:51 AM [facility] MCV 88.0 79.0 - 98.0 FL LAB HEMETOLOGY METHOD 01/05/2025 8:51 AM [facility] MCH 26.5(L) 27.0 - 32.0 pcg LAB HEMETOLOGY METHOD 01/05/2025 8:51 AM [facility] MCHC 30.1(L) 32.0 - 37.0 g/dL LAB HEMETOLOGY METHOD 01/05/2025 8:51 AM [facility] RDW 18.1(H) 11.0 - 15.0 % LAB HEMETOLOGY METHOD 01/05/2025 8:51 AM [facility] Platelets 512(H) 130 - 400 K/mcL LAB HEMETOLOGY METHOD 01/05/2025 8:51 AM [facility] MPV 9.2 7.0 - 11.0 FL LAB HEMETOLOGY METHOD 01/05/2025 8:51 AM [facility] NRBC 0.0 <1.0 % LAB HEMETOLOGY METHOD 01/05/2025 8:51 AM [facility] NRBC Absolute 0.00 <0.10 K/mcL LAB HEMETOLOGY METHOD 01/05/2025 8:51 AM EDT [facility] Blood Venous blood specimen / Unknown Venipuncture / Unknown 01/05/2025 5:54 AM EDT 01/05/2025 8:30 AM EDT us Grady Helm MD LAB BLOOD ORDERABLES Final Result [facility] [address] [place] [address], documented in this encounter Visit Diagnoses Diagnosis Heart failure, unspecified (CMS/HCC V24, CMS/HCC V28) Heart failure, unspecified Anemia, unspecified documented in this encounter Care Teams Remelt Pan Tank Operator Relationship Specialty Start Date End Date Grady Helm MD [address] [place] [address] PCP - General Internal Medicine 01/03/25 documented as of this encounter
--- OUTSIDE RECORDS SUMMARY | 2025-06-30 17:08 | XMS_ITS | Encounter Summary ---
Author Organization [facility] Address [address] [place] [address] Care Team Providers Care Swahili Teacher Name Role Phone Grady Helm MD Primary Care Provider +1- [phone] Encounter Details Date Type Department Care Team (Late st Contact Info) Description 01/03/2025 Lab Requisition [facility] - Main Lab 299 [facility] [place] [phone] Grady Helm MD [address] [place] [address] Cellulitis, unspecified Social History Tobacco Use Types [...] mmol/L LAB CHEMISTRY METHOD 01/03/2025 10:55 AM [facility] Potassium 4.2 3.5 - 5.5 mmol/L LAB CHEMISTRY METHOD 01/03/2025 10:55 AM [facility] Chloride 106 96 - 110 mmol/L LAB CHEMISTRY METHOD 01/03/2025 10:55 AM [facility] CO2 25 21 - 32 mmol/L LAB CHEMISTRY METHOD 01/03/2025 10:55 AM [facility] Anion Gap 7 3 - 11 LAB CHEMISTRY METHOD 01/03/2025 10:55 AM [facility] Glucose 75 70 - 100 mg/dL LAB CHEMISTRY METHOD 01/03/2025 10:55 AM [facility] BUN 24 5 - 25 mg/dL LAB CHEMISTRY METHOD 01/03/2025 10:55 AM [facility] Creatinine 1.34(H) 0.50 - 1.10 mg/dL LAB CHEMISTRY METHOD 01/03/2025 10:55 AM [facility] eGFR 42(L) >=60 mL/min/1. 73m2 LAB CHEMISTRY METHOD 01/03/2025 10:55 AM [facility] Comment:Calculation based on the Chronic Kidney Disease Epidemiology Collaboration (CKD-EPI) equation refit without adjustment for race. BUN/Creatinine Ratio 17.9 LAB CHEMISTRY METHOD 01/03/2025 10:55 AM [facility] Calcium 8.3(L) 8.5 - 10.5 mg/dL LAB CHEMISTRY METHOD 01/03/2025 10:55 AM [facility] AST (SGOT) 75(H) 10 - 42 unit/L LAB CHEMISTRY METHOD 01/03/2025 10:55 AM [facility] ALT (SGPT) 40 10 - 60 unit/L LAB CHEMISTRY METHOD 01/03/2025 10:55 AM EDT [facility] Alkaline Phosphatase 84 42 - 121 unit/L LAB CHEMISTRY METHOD 01/03/2025 10:55 AM EDT [facility] Total Protein 5.5(L) 6.0 - 8.0 g/dL LAB CHEMISTRY METHOD 01/03/2025 10:55 AM [facility] Albumin 1.9(L) 3.2 - 5.0 g/dL LAB CHEMISTRY METHOD 01/03/2025 10:55 AM T [facility] Total Bilirubin 0.4 0.0 - 1.4 mg/dL LAB CHEMISTRY METHOD 01/03/2025 10:55 AM [facility] Blood Venous blood specimen / Unknown Venipuncture / Unknown 01/03/2025 8:30 AM EDT 01/03/2025 10:08 AM EDT Grady Helm MD LAB BLOOD ORDERABLES Final Result [facility] [address] [place] [address], * (ABNORMAL) Complete blood count (01/03/2025 8:30 AM EDT) WBC 7.5 4.8 - 10.8 K/mcL LAB HEMETOLOGY METHOD 01/03/2025 10:23 AM [facility] RBC 2.90(L) 3.80 - 4.80 M/[facility] LAB HEMETOLOGY METHOD 01/03/2025 10:23 AM [facility] Hemoglobin 7.9(L) 11.5 - 16.0 g/dL LAB HEMETOLOGY METHOD 01/03/2025 10:23 AM [facility] Hematocrit 25.0(L) 35.0 - 47.0 % LAB HEMETOLOGY [facility]03[facility]25 [facility] MCV 85.3 79.0 - 98.0 FL LAB HEMETOLOGY METHOD 01/03/2025 10:23 AM EDT [facility] MCH 27.0 27.0 - 32.0 pcg LAB HEMETOLOGY METHOD 01/03/2025 10:23 AM EDT [facility] MCHC 31.6(L) 32.0 - 37.0 g/dL LAB HEMETOLOGY METHOD 01/03/2025 10:23 AM EDT [facility] RDW 17.9(H) 11.0 - 15.0 % LAB HEMETOLOGY METHOD 01/03/2025 10:23 AM EDT [facility] Platelets 544(H) 130 - 400 K/mcL LAB HEMETOLOGY METHOD 01/03/2025 10:23 AM EDT [facility] MPV 9.6 7.0 - 11.0 FL LAB HEMETOLOGY METHOD 01/03/2025 10:23 AM EDT [facility] NRBC 0.0 <1.0 % LAB HEMETOLOGY METHOD 01/03/2025 10:23 AM EDT [facility] NRBC Absolute 0.00 <0.10 K/mcL LAB HEMETOLOGY METHOD 01/03/2025 10:23 AM T [facility] Blood Venous blood specimen / Unknown Venipuncture / Unknown 01/03/2025 8:30 AM EDT 01/03/2025 10:08 AM EDT us Grady Helm MD LAB BLOOD ORDERABLES Final Result [facility] [address] [place] [address], documented in this encounter Visit Diagnoses Diagnosis Cellulitis, unspecified documented in this encounter Care Teams Swahili Teacher Relationship Specialty Start Date End Date Grady Helm MD [address] [place] [address] PCP - General Internal Medicine 01/03/25 documented as of this encounter
--- OUTSIDE RECORDS SUMMARY | 2025-06-30 17:08 | XMS_ITS | Encounter Summary ---
Author Organization [facility] Address [address] [place] [address] Care Team Providers Care Policy Director Name Role Phone Grady Helm MD Primary Care Provider +1- [phone] Encounter Details Date Type Department Care Team (Late st Contact Info) Description 01/17/[address] [facility] - Main Lab [address] [facility] [place] [address] Grady Helm MD [address] [place] [address] Cellulitis, unspecified Social History Tobacco Use Types [...] mmol/L LAB CHEMISTRY METHOD 01/18/2025 1:31 PM [facility] Potassium 3.6 3.5 - 5.5 mmol/L LAB CHEMISTRY METHOD 01/18/2025 1:31 PM [facility] Chloride 101 96 - 110 mmol/L LAB CHEMISTRY METHOD 01/18/2025 1:31 PM [facility] CO2 25 21 - 32 mmol/L LAB CHEMISTRY METHOD 01/18/2025 1:31 PM [facility] Anion Gap 14(H) 3 - 11 LAB CHEMISTRY METHOD 01/18/2025 1:31 PM [facility] Glucose 63(L) 70 - 100 mg/dL LAB CHEMISTRY METHOD 01/18/2025 1:31 PM [facility] BUN 28(H) 5 - 25 mg/dL LAB CHEMISTRY METHOD 01/18/2025 1:31 PM [facility] Creatinine 1.89(H) 0.50 - 1.10 mg/dL LAB CHEMISTRY METHOD 01/18/2025 1:31 PM [facility] eGFR 28(L) >=60 mL/min/1. 73m2 LAB CHEMISTRY METHOD 01/18/2025 1:31 PM [facility] Comment:Calculation based on the Chronic Kidney Disease Epidemiology Collaboration (CKD-EPI) equation refit without adjustment for race. BUN/Creatinine Ratio 14.8 LAB CHEMISTRY METHOD 01/18/2025 1:31 PM [facility] Calcium 7.7(L) 8.5 - 10.5 mg/dL LAB CHEMISTRY METHOD 01/18/2025 1:31 PM [facility] Blood Venous blood specimen / Unknown Venipuncture / Unknown 01/18/2025 8:01 AM EDT 01/18/2025 11:05 AM EDT us Grady B Jagadeesan MD LAB BLOOD ORDERABLES Final Result [facility] [address] [place] [address], * (ABNORMAL) Complete blood count (01/18/2025 8:01 AM EDT) WBC 2.3(L) 4.8 - 10.8 K/mcL LAB HEMETOLOGY METHOD 01/18/2025 12:10 PM EDT [facility] RBC 2.90(L) 3.80 - 4.80 M/mcL LAB HEMETOLOGY METHOD 01/18/2025 12:10 PM EDT [facility] Hemoglobin 7.7(L) 11.5 - 16.0 g/dL LAB HEMETOLOGY METHOD 01/18/2025 12:10 PM EDT [facility] Hematocrit 24.5(L) 35.0 - 47.0 % LAB HEMETOLOGY METHOD 01/18/2025 12:10 PM EDT [facility] MCV 84.2 79.0 - 98.0 FL LAB [facility]EMETOLOGY METHOD [facility] MCH 26.5(L) 27.0 - 32.0 pcg LAB HEMETOLOGY METHOD 01/18/2025 12:10 PM EDT [facility] MCHC 31.4(L) 32.0 - 37.0 g/dL LAB HEMETOLOGY METHOD 01/18/2025 12:10 PM EDT [facility] RDW 19.1(H) 11.0 - 15.0 % LAB HEMETOLOGY METHOD 01/18/2025 12:10 PM T [facility] Platelets 107(L) 130 - 400 K/mcL LAB HEMETOLOGY METHOD 01/18/2025 12:10 PM EDT [facility] MPV 11.4(H) 7.0 - 11.0 FL LAB HEMETOLOGY METHOD 01/18/2025 12:10 PM EDT [facility] NRBC 0.0 <1.0 % LAB HEMETOLOGY METHOD 01/18/2025 12:10 PM EDT [facility] NRBC Absolute 0.00 <0.10 K/mcL LAB HEMETOLOGY METHOD 01/18/2025 12:10 PM EDT [facility] Blood Venous blood specimen / Unknown Venipuncture / Unknown 01/18/2025 8:01 AM EDT 01/18/2025 11:05 AM EDT us Grady Helm MD LAB BLOOD ORDERABLES Final Result [facility] [address] [place] [address], documented in this encounter Visit Diagnoses Diagnosis Cellulitis, unspecified documented in this encounter Care Teams Policy Director Relationship Specialty Start Date End Date Grady Helm MD [address] [place] [id number] PCP - General Internal Medicine 01/03/25 documented as of this encounter
--- OUTSIDE RECORDS SUMMARY | 2025-06-30 17:08 | XMS_ITS | Patient Health Record ---
[facility] Organization [facility] Address [address] [place] [address] Care Team Providers Care Dye House Vat Worker Name Role Phone Jordan Dai BRYSON Primary Care Provider Sanya Reed Unavailable [phone] Allergies Allergen (clinical drug ingredient) Drug/Non Drug [...] Status W/U Status Risk Notes Problem Lymphedema (83961909) Lymphedema (I89.0) Active confirmed Problem Psoriasis (9340840) Psoriasis (L40.9) Active confirmed Plan Of Treatment Pending Test Test Name Order Date [id number] SKIN/TISSUE 12/02/2018 Insurance Providers Payer Name Payer Address Payer Phone Subscriber Number Group Number Insured Name Patient Relationship to Insured Coverage Start Date Coverage End Date [facility] [address] [place] [address] [id number] Binta Vidal Self - patient is the [...]
--- OUTSIDE RECORDS SUMMARY | 2025-06-30 17:08 | XMS_ITS | Encounter Summary ---
Author Organization [facility] Address [address] [place] [address] Care Team Providers Care Personnel Analyst Name Role Phone Grady Helm MD Primary Care Provider +1- [phone] Encounter Details Date Type Department Care Team (Late st Contact Info) Description 02/07/2025 Lab Requisition [facility] - Main Lab [address] [facility] [place] [address] Calin Mcgill MD [address] [place] [address] Vitamin D deficiency, unspecified; Anemia, unspecified; Chronic [...] disease, unspecified Heart failure, unspecified (CMS/HCC V24, CMS/[facility] V28) VITAMIN D 25 HYDROXY Routine 02/07/2025 5:22 AM EDT Vitamin D deficiency, unspecified Anemia, unspecified Chronic kidney disease, unspecified Heart failure, unspecified ([facility] V24, [facility] V28) COMPLETE BLOOD COUNT Routine 02/07/2025 5:22 AM EDT Vitamin D deficiency, unspecified Anemia, unspecified Chronic kidney disease, unspecified Heart failure, unspecified ([facility] V24, [facility] V28) IRON Routine 02/07/2025 5:22 AM EDT Vitamin D deficiency, unspecified Anemia, unspecified Chronic kidney disease, unspecified Heart failure, unspecified ([facility] V24, [facility] V28) FOLATE Routine 02/07/2025 5:22 AM EDT Vitamin D deficiency, unspecified Anemia, unspecified Chronic kidney disease, unspecified Heart failure, unspecified ([facility] V24, [facility] V28) VITAMIN B12 Routine 02/07/2025 5:22 AM EDT Vitamin D deficiency, unspecified Anemia, unspecified Chronic kidney disease, unspecified Heart failure, unspecified ([facility] V24, [facility] V28) COMPREHENSIVE METABOLIC PANEL Routine 02/07/2025 5:22 AM EDT Vitamin D deficiency, unspecified Anemia, unspecified Chronic kidney disease, unspecified Heart failure, unspecified ([facility] V24, [facility] V28) documented in this encounter Results * (ABNORMAL) Iron (02/07/2025 5:22 AM EDT) Iron 13(L) 40 - 150 mcg/dL LAB CHEMISTRY METHOD 02/07/2025 1:51 PM EDT [facility] ([facility]) [facility] Blood Venous blood specimen / Unknown Venipuncture / Unknown 02/07/2025 5:22 AM EDT 02/07/2025 12:23 PM EDT Calin Mcgill MD LAB BLOOD ORDERABLES Final Resul t Performing Organization Address City/[facility]/ZIP Co de Phone Number [facility] [address] [place] [address], [place] [phone] * Vitamin D 25 hydroxy (02/07/2025 5:22 AM EDT) Vit D, 25-Hydroxy 73.2 30.0 - 80.0 ng/mL LAB CHEMISTRY METHOD 02/07/2025 2:52 PM EDT [facility] Blood Venous blood specimen / Unknown Venipuncture / Unknown 02/07/2025 5:22 AM EDT 02/07/2025 12:23 PM EDT us Calin Mcgill MD LAB BLOOD ORDERABLES Final Resul t Performing Organization Address [facility] Co de Phone Number [facility] [address] [place] [address], [place] [phone] * Vitamin B12 (02/07/2025 5:22 AM EDT) Pathologist [facility] Vitamin B-12 620 250 - 900 pcg/mL LAB CHEMISTRY METHOD 02/07/2025 2:15 PM EDT [facility] Blood Venous blood specimen / Unknown Venipuncture / Unknown 02/07/2025 5:22 AM EDT 02/07/2025 12:23 PM EDT us Calin Mcgill MD LAB BLOOD ORDERABLES Final Resul t Performing Organization Address [facility]/ZIP Co de Phone Number [facility] [address] [place] [address], [place] [phone] * Folate (02/07/2025 5:22 AM EDT) Folate 3.8 2.8 - 17.0 ng/ml LAB CHEMISTRY METHOD 02/07/2025 2:15 PM EDT [facility] Blood Venous blood specimen / Unknown Venipuncture / Unknown 02/07/2025 5:22 AM EDT 02/07/2025 12:23 PM EDT us Calin Mcgill MD LAB BLOOD ORDERABLES Final Resul t Performing Organization Address City/[facility]/ZIP Co de Phone Number [facility] [address] [place] [address], [place] [phone] * (ABNORMAL) Lipid panel with reflex to [...] [facility] [address] [place] [address], [place] [phone] * (ABNORMAL) Comprehensive metabolic panel (02/07/2025 5:22 AM EDT) Sodium 135 133 - 145 mmol/L LAB CHEMISTRY METHOD 02/07/2025 2:21 PM [facility] Potassium 2.8(LL) 3.5 - 5.5 mmol/L LAB CHEMISTRY METHOD 02/07/2025 2:21 PM [facility] Chloride 94(L) 96 - 110 mmol/L LAB CHEMISTRY METHOD 02/07/2025 2:21 PM [facility] CO2 28 21 - 32 mmol/L LAB CHEMISTRY METHOD 02/07/2025 2:21 PM [facility] Anion Gap 13(H) 3 - 11 LAB CHEMISTRY METHOD 02/07/2025 2:21 PM [facility] Glucose 60(L) 70 - 100 mg/dL LAB CHEMISTRY METHOD 02/07/2025 2:21 PM [facility] BUN 21 5 - 25 mg/dL LAB CHEMISTRY METHOD 02/07/2025 2:21 PM [facility] Creatinine 1.29(H) 0.50 - 1.10 mg/dL LAB CHEMISTRY METHOD 02/07/2025 2:21 PM [facility] eGFR 44(L) >=60 mL/min/1. 73m2 LAB CHEMISTRY METHOD 02/07/2025 2:21 PM [facility] Comment:Calculation based on the Chronic Kidney Disease Epidemiology Collaboration (CKD-EPI) equation refit without adjustment for race. BUN/Creatinine Ratio 16.3 LAB CHEMISTRY METHOD 02/07/2025 2:21 PM [facility] Calcium 6.2(L) 8.5 - 10.5 mg/dL LAB CHEMISTRY METHOD 02/07/2025 2:21 PM [facility] AST (SGOT) 26 10 - [...] t [facility] [address] [place] [address], * (ABNORMAL) Complete blood count (02/07/2025 5:22 [...] t [facility] [address] [place] [address], documented in this encounter Visit Diagnoses Diagnosis Vitamin D deficiency, unspecified Anemia, unspecified Chronic kidney disease, unspecified Heart failure, unspecified (CMS/HCC V24, CMS/HCC V28) Heart failure, unspecified documented in this encounter Care Teams Personnel Analyst Relationship Specialty Start Date End Date Grady Helm MD [address] [place] [address] PCP - General Internal Medicine 01/03/25 documented as of this encounter
--- OUTSIDE RECORDS SUMMARY | 2025-06-30 17:08 | XMS_ITS | Clinical Summary ---
Author Organization [facility], Address [address] [place] [address] [place] [address] Phone Care Team Providers Care Band Straightener Name Role Phone Unavailable Primary Care Provider [...] Encounters Date Type Department Care Team Description 04/29/2025 Telephone [facility] [address] [place] [address] Irena Mena MA from Last 3 Months Immunizations Immunization Administration [...] to 49 Years) Discontinued 07/25/2020, 12/28/2018 Insurance [facility]
--- OUTSIDE RECORDS SUMMARY | 2025-06-30 17:08 | XMS_ITS | Encounter Summary ---
Author Organization [facility], Address [address] [place] [address] Phone Care Team Providers Care Paper Machine Back Tender Name Role Phone Unavailable Primary Care Provider Unavailabl e Encounter Details Date Type Department Care Team (Late st Contact Info) Description 01/13/2025 Documentation Only [facility], [address] [place] [address] Irena MenaLOOKOUT, [place] [address] [place] [address] Social History Tobacco Use Types [...]
--- OUTSIDE RECORDS SUMMARY | 2025-06-30 17:08 | XMS_ITS | Encounter Summary ---
Author Organization [facility] Address [address] [place] [address] Care Team Providers Care Superintendent Distribution Name Role Phone Grady Helm MD Primary Care Provider +1- [phone] Encounter Details Date Type Department Care Team (Late st Contact Info) Description 02/10/2025 Lab Requisition [facility] - Main Lab [address] [facility] [place] [address] Calin Mcgill MD [address] [place] [address] Chronic kidney disease, unspecified; Vitamin D deficiency, [...] LAB CHEMISTRY METHOD 02/10/2025 9:24 AM EDT [facility] Blood Venous blood specimen / Unknown Venipuncture / Unknown 02/10/2025 6:56 AM EDT 02/10/2025 8:10 AM EDT us Calin Mcgill MD LAB BLOOD ORDERABLES Final Resul t Performing Organization Address City/[facility]/ZIP Co de Phone Number [facility] [address] [place] [address], * (ABNORMAL) Magnesium (02/10/2025 6:56 AM EDT) Magnesium 0.9(LL) 1.9 - 2.6 mg/dL LAB CHEMISTRY METHOD 02/10/2025 9:44 AM EDT [facility] Blood Venous blood specimen / Unknown Venipuncture / Unknown 02/10/2025 6:56 AM EDT 02/10/2025 8:10 AM EDT us Calin Mcgill MD LAB BLOOD ORDERABLES Final Resul t [facility] [address] [place] [address], [place] [phone] * Vitamin D 25 hydroxy (02/10/2025 6:56 AM EDT) Vit D, 25-Hydroxy 79.6 30.0 - 80.0 ng/mL LAB CHEMISTRY METHOD 02/10/2025 10:04 AM EDT [facility] Blood Venous blood specimen / Unknown Venipuncture / Unknown 02/10/2025 6:56 AM EDT 02/10/2025 8:10 AM EDT Calin Mcgill MD LAB BLOOD ORDERABLES Final Resul t Performing Organization Address [facility]/ZIP Co de Phone Number [facility] [address] [place] [address], [place] [phone] * Parathyroid hormone intact (02/10/2025 6:56 AM EDT) PTH 82.4 18.5 - 88.0 pcg/mL LAB CHEMISTRY METHOD 02/10/2025 10:04 AM EDT [facility] Blood Venous blood specimen / Unknown Venipuncture / Unknown 02/10/2025 6:56 AM EDT 02/10/2025 8:10 AM EDT us Clain Mcgill MD LAB BLOOD ORDERABLES Final Resul t Performing Organization Address [facility]/ZIP Co de Phone Number [facility] [address] [place] [address], [place] [phone] documented in this encounter Visit Diagnoses Diagnosis Chronic kidney disease, unspecified Vitamin D deficiency, unspecified documented in this encounter Care Teams Superintendent Distribution Relationship Specialty Start Date End Date Grady Helm MD [address] [place] [address] PCP - General Internal Medicine 01/03/25 documented as of this encounter
--- OUTSIDE RECORDS SUMMARY | 2025-06-30 17:08 | XMS_ITS | Encounter Summary ---
Author Organization [facility] Address [address] [place] [address] Care Team Providers Care Jig And Fixture Builder Name Role Phone Grady Helm MD Primary Care Provider +1- [phone] Encounter Details Date Type Department Care Team (Late st Contact Info) Description 01/23/2025 Lab Requisition [facility] - Main Lab 299 [facility] [place] [address] Grady Helm MD [address] [place] [address] Cellulitis, unspecified Social History Tobacco Use Types [...] unspecified documented in this encounter Care Teams Jig And Fixture Builder Relationship Specialty Start Date End Date Grady Helm MD [address] [place] [address] PCP - General Internal Medicine 01/03/25 documented as of this encounter
--- OUTSIDE RECORDS SUMMARY | 2025-06-30 17:08 | XMS_ITS | Encounter Summary ---
Author Organization [facility] Address [address] [place] [address] Care Team Providers Care Financial Writer Name Role Phone Grady Helm MD Primary Care Provider +1- [phone] Encounter Details Date Type Department Care Team (Late st Contact Info) Description 01/20/2025 Lab Requisition [facility] - Main Lab 299 [facility] [place] [address] Grady Helm MD [address] [place] [address] Heart failure, unspecified (CMS/HCC V24, CMS/HCC V28) [...] LAB CHEMISTRY METHOD 01/20/2025 8:58 AM EDT [facility] Blood Venous blood specimen / Unknown Venipuncture / Unknown 01/20/2025 6:36 AM EDT 01/20/2025 7:16 AM EDT Grady Helm MD LAB BLOOD ORDERABLES Final Result [facility] ([facility] [address] [place] [address], documented in this encounter Visit Diagnoses Diagnosis Heart failure, unspecified (CMS/HCC V24, CMS/HCC V28) Heart failure, unspecified documented in this encounter Care Teams Financial Writer Relationship Specialty Start Date End Date Grady Helm MD [address] [place] [address] PCP - General Internal Medicine 01/03/25 documented as of this encounter
--- OUTSIDE RECORDS SUMMARY | 2025-06-30 17:08 | XMS_ITS | Encounter Summary ---
Author Organization [facility] Address [address] [place] [address] Care Team Providers Care Malt Roaster Name Role Phone Grady Helm MD Primary Care Provider +1- [phone] Encounter Details Date Type Department Care Team (Late st Contact Info) Description 03/10/2025 Lab Requisition [facility] - Main Lab [address] [facility] [place] [address] Calin Mcgill MD [address] [place] [address] Hypomagnesemia Social History Tobacco Use Types Packs/Day [...] metabolism documented in this encounter Care Teams Malt Roaster Relationship Specialty Start Date End Date Grady Helm MD [address] [place] [address] PCP - General Internal Medicine 01/03/25 documented as of this encounter
--- OUTSIDE RECORDS SUMMARY | 2025-06-30 17:08 | XMS_ITS | Clinical Summary ---
Author Organization [facility] Address [address] [place] [address] Phone Care Team Providers Care Corncob Pipes Assembler Name Role Phone Unavailable Primary Care Provider [...] It is not the complete legal health record.[facility]
--- OUTSIDE RECORDS SUMMARY | 2025-06-30 17:08 | XMS_ITS | Encounter Summary ---
Author Organization [facility] Address [address] [place] [address] Care Team Providers Care Toddler Lead Teacher Name Role Phone Grady Helm MD Primary Care Provider +1- [phone] Encounter Details Date Type Department Care Team (Late st Contact Info) Description 02/08/2025 Lab Requisition [facility] - Main Lab 299 [facility] [place] [address] Calin Mcgill MD [address] [place] [address] Hypokalemia Social History Tobacco Use Types Packs/Day [...] 9:25 AM EDT [facility] Potassium 3.4(L) 3.5 - 5.5 mmol/L LAB CHEMISTRY METHOD 02/08/2025 9:25 AM [facility] Chloride 102 96 - 110 mmol/L LAB CHEMISTRY METHOD 02/08/2025 9:25 AM [facility] CO2 31 21 - 32 mmol/L LAB CHEMISTRY METHOD 02/08/2025 9:25 AM [facility] Anion Gap 8 3 - 11 LAB CHEMISTRY METHOD 02/08/2025 9:25 AM [facility] Glucose 84 70 - 100 mg/dL LAB CHEMISTRY METHOD 02/08/2025 9:25 AM [facility] BUN 17 5 - 25 mg/dL LAB CHEMISTRY METHOD 02/08/2025 9:25 AM [facility] Creatinine 1.08 0.50 - 1.10 mg/dL LAB CHEMISTRY METHOD 02/08/2025 9:25 AM [facility] eGFR 54(L) >=60 mL/min/1. 73m2 LAB CHEMISTRY METHOD 02/08/2025 9:25 AM [facility] Comment:Calculation based on the Chronic Kidney Disease Epidemiology Collaboration (CKD-EPI) equation refit without adjustment for race. BUN/Creatinine Ratio 15.7 LAB CHEMISTRY METHOD 02/08/2025 9:25 AM [facility] Calcium 5.7(LL) 8.5 - 10.5 mg/dL LAB CHEMISTRY METHOD 02/08/2025 9:25 AM [facility] Blood Venous blood specimen / Unknown Venipuncture / Unknown 02/08/2025 5:10 AM EDT 02/08/2025 8:12 AM EDT us Calin Mcgill MD LAB BLOOD ORDERABLES Final Resul t [facility] [address] [place] [address], documented in this encounter Visit Diagnoses Diagnosis Hypokalemia Hypopotassemia documented in this encounter Care Teams Toddler Lead Teacher Relationship Specialty Start Date End Date Grady Helm MD [address] [place] [address] PCP - General Internal Medicine 01/03/25 documented as of this encounter
--- OUTSIDE RECORDS SUMMARY | 2025-06-30 17:08 | XMS_ITS | Patient Health Record ---
Author Organization [facility] Address [address] [place] [address] Care Team Providers Care Collection Specialist Name Role Phone Billie Maguire MD Primary Care Provider Deric Gambino Unavailable [phone] Allergies Allergen (clinical drug ingredient) Drug/Non Drug Allergy documented on EMR Reaction Allergy Type Onset Date Status Compazine Unknown Drug Allergy Active prochlorperazine Prochlorperazine Unknown Drug Allergy Active paroxetine Paxil Unknown Drug Allergy Active Levaquin Unknown Drug Allergy Active Latex latex (uncoded) Unknown Allergy Acti ve Reason For Referral No Information Medications Medication SIG (Take, Route, Frequency, Duration) Notes Start Date End Date Status Advair Diskus 250-50 MCG/DOSE 1 puff Inhalation Twice a day Active Pantoprazole Sodium 40 MG TAKE 1 TABLET BY MOUTH EVERY DAY; Duration: 30 Active traMADol HCl 50 MG as directed Orally prn Active Coreg CR 20 MG 1 capsule with food Orally Once a day Active cloNIDine HCl 0.1 MG 1 tablet Orally Twi ce a day Active LORazepam 0.5 MG 2 tablet as needed O rally Once a day Active Atorvastatin Calcium 40 MG 1 tablet Oral ly Once a day; Duration: 30 day(s) Active Furosemide 20 MG 1 tablet Orally Twic e a day Active Albuterol Sulfate HFA 108 (90 Base) MCG/ACT 2 puffs as needed Inhalation every 6 hrs Active Vitamin D (Ergocalciferol) 78144 UNIT 1 capsule Orally per week Ac tive Flonase 50 MCG/ACT 1 spray in each nost ril Nasally Once a day Active Immunizations Vaccine Route Administration Date Status Comme nts Influenza Unknown 08/12/2018 Administered Problems Problem Type SNOMED Code ICD Code Onset Dates Problem Status W/U Status Risk Notes Problem Screening for malignant neoplasm of colon (737462254) Encounter for screening for malignant neoplasm of colon (Z12.11) Active confirmed Problem History of adenomatous polyp of colon (616333448) History of adenomatous polyp of colon (Z86.010) Active confirmed Problem Iron deficiency anemia (12513866) Iron deficiency anemia (D50.9) Active confirmed Problem Preprocedural examination (402604945008391) Preprocedural examination (Z01.818) Active confirmed Encounters Encounter Location Date Provider Diagnosis [facility] [address] [place] [address] 07/27/2024 Deric Aquino Plan Of Treatment Future Test Test Name Order Date COLONOSCOPY 06/16/2013 COLONOSCOPY 02/03/2019 Medical (General) History Medical History History ICD Code Screening Colonoscopy 6-27-2 008--1 small tubular adenoma removed; neg. colonoscopy in 07/2013 GERD-EGD 5-5-1998-HH, no Daniels's Hypertension Asthma Anemia-chronic Chronic kidney disease stage III-Dr. 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 oJsi Chapin Surgical History Surgery Date(Month/Year) Rotator cuff right shoulder Tonsillectomy
== END 2025-06-30 17:08 | disposition home or self-care (01) ==
LOC: HO.HMCC 14:00
PROVIDERS: PCP Internal Medicine; Visit Provider Internal Medicine
DX: J45.909 Unspecified asthma, uncomplicated (principal); I50.30 Unspecified diastolic (congestive) heart failure; N18.31 Chronic kidney disease, stage 3a; I10 Essential (primary) hypertension; Z98.890 Other specified postprocedural states; Z87.81 Personal history of (healed) traumatic fracture; F41.9 Anxiety disorder, unspecified; R06.02 Shortness of breath

== ENCOUNTER → 2025-06-30 13:59 | Outpatient (BNVA) | payer SELFPAY | PROVIDERS: PCP Internal Medicine; Visit Provider Internal Medicine | DX: I13.0 Hypertensive heart and chronic kidney disease with heart failure and stage 1 through stage 4 chronic kidney disease, or unspecified chronic kidney disease (principal); N18.31 Chronic kidney disease, stage 3a; J45.901 Unspecified asthma with (acute) exacerbation; I50.30 Unspecified diastolic (congestive) heart failure; M25.579 Pain in unspecified ankle and joints of unspecified foot; G89.29 Other chronic pain; F41.9 Anxiety disorder, unspecified; Z87.81 Personal history of (healed) traumatic fracture; Z98.890 Other specified postprocedural states | CPT/HCPCS: 94640; 96127; 99212 ==

== ENCOUNTER 2025-07-08 15:05 | Outpatient (REF) | payer SELFPAY ==
--- NOTE | ~2025-07-08 | XR_ITS ---
EXAMINATION: XR CHEST CLINICAL INFORMATION: J45.909 - Unspecified asthma, uncomplicated COMPARISON: None available. TECHNIQUE: 2 views of the chest were obtained. FINDINGS: There are coarse lung markings. The lungs are clear. There is borderline cardiomegaly. Retrocardiac density with air-fluid levels again identified consistent with hiatal hernia. XR/XR chest 2V IMPRESSION: No acute disease. Borderline cardiomegaly. Stable hiatal hernia. Electronically signed by: Alon Michelle MD 07/08/2025 03:33 PM EST
[2025-07-08 16:13] LABS: MANUAL DIFF FLAG NO
[2025-07-08 16:24] LABS: Hematocrit 26.8 % (37.0-47.0); Hemoglobin 8.4 g/dl (12.0-16.0); Imm Gran Abs Auto 0.15 X10*3/uL (0.00-0.03); Imm Gran Pct Auto 2.9 % (0.0-0.4); Lymphocytes Absolute Auto 0.8 X10*3/uL (1.2-4.9); Mean Corpuscular HGB Conc 31.3 g/dl (31.0-35.0); Mean Corpuscular Hemoglobin 25.1 pg (27.0-33.0); Mean Corpuscular Volume 80.2 fL (80.0-98.0); NRBC Abs Auto 0.000 X10*3/uL (0.0-0.012); NRBC Pct Auto 0.0 /100WBC (0.0-0.2); Platelet Count 358 X10*3/uL (160-400); Red Blood Count 3.34 X10*6/uL (4.20-5.50); Reticulocytes Absolute 0.063 X10*6/uL (0.026-0.095); White Blood Count 5.1 X10*3/uL (4.8-10.8)
[2025-07-08 16:58] LABS: NT Pro B Type Natriuretic Pept 436.0 pg/mL (<300)
[2025-07-08 16:59] LABS: Alanine Aminotransferase 47 U/L (0-31); Albumin Level 4.5 g/dL (3.5-5.0); Alkaline Phosphatase 86 U/L (39-117); Anion Gap 20 (12-20); Aspartate Amino Transferase 68 U/L (5-31); Blood Urea Nitrogen 65 mg/dL (9-16); Calcium 8.9 mg/dL (8.4-10.2); Carbon Dioxide 21 mmol/L (22-29); Chloride 105 mmol/L (96-108); Estimated Glomerular Filt Rate 26; Iron 19 mcg/dL (30-160); Percent Iron Saturation 6 % (15-50); Potassium 3.9 mmol/L (3.3-5.1); Sodium 142 mmol/L (135-145); Total Iron Binding Capacity 302 mcg/dL (228-428); Total Protein 7.3 g/dL (6.5-8.0); Unsaturated Iron Binding 283 ug/dL
[2025-07-08 17:26] LABS: Folate 3.1 ng/mL (> or = 4.0); Vitamin B12 335 pg/mL (200-900)
[2025-07-08 17:56] LABS: D Dimer High Sensitivity 750 NG/ML
--- OUTSIDE RECORDS SUMMARY | 2025-07-08 23:08 | XMS_ITS | Encounter Summary ---
Author Organization [facility] Address [address] [place] [address] Care Team Providers Care Associate Professor Of Counseling Name Role Phone Grady Helm MD Primary Care Provider +1- [phone] Encounter Details Date Type Department Care Team (Late st Contact Info) Description 03/10/2025 Lab Requisition [facility] - Main Lab [address] [facility] [place] [address] Calin Mcgill MD [address] [place] [address] Hypomagnesemia Social History Tobacco Use Types Packs/Day [...] metabolism documented in this encounter Care Teams Associate Professor Of Counseling Relationship Specialty Start Date End Date Grady Helm MD [address] [place] [address] PCP - General Internal Medicine 01/03/25 documented as of this encounter
--- OUTSIDE RECORDS SUMMARY | 2025-07-08 23:08 | XMS_ITS | Encounter Summary ---
Author Organization [facility] Address [address] [place] [address] Care Team Providers Care Process Mechanic Name Role Phone Grady Helm MD Primary Care Provider [phone]- [phone] Encounter Details Date Type Department Care Team (Late st Contact Info) Description 02/08/2025 Lab Requisition [facility] - Main Lab [address] [facility] [place] [address] Calin Mcgill MD [address] [place] [address] Hypokalemia Social History Tobacco Use Types Packs/Day [...] LAB CHEMISTRY METHOD 02/08/2025 9:25 AM EDT [facility] Potassium 3.4(L) 3.5 - 5.5 mmol/L LAB CHEMISTRY METHOD 02/08/2025 9:25 AM [facility] Chloride 102 96 - 110 mmol/L LAB CHEMISTRY METHOD 02/08/2025 9:25 AM [facility] CO2 31 21 - 32 mmol/L LAB CHEMISTRY METHOD 02/08/2025 9:25 AM [facility] Anion Gap 8 3 - 11 LAB CHEMISTRY METHOD 02/08/2025 9:25 AM [facility] Glucose 84 70 - 100 mg/dL LAB CHEMISTRY METHOD 02/08/2025 9:25 AM [facility] BUN 17 5 - 25 mg/dL LAB CHEMISTRY METHOD 02/08/2025 9:25 AM [facility] Creatinine 1.08 0.50 - 1.10 mg/dL LAB CHEMISTRY METHOD 02/08/2025 9:25 AM [facility] eGFR 54(L) >=60 mL/min/1. 73m2 LAB CHEMISTRY METHOD 02/08/2025 9:25 AM [facility] Comment:Calculation based on the Chronic Kidney Disease Epidemiology Collaboration (CKD-EPI) equation refit without adjustment for race. BUN/Creatinine Ratio 15.7 LAB CHEMISTRY METHOD 02/08/2025 9:25 AM [facility] Calcium 5.7(LL) 8.5 - 10.5 mg/dL LAB CHEMISTRY METHOD 02/08/2025 9:25 AM [facility] Blood Venous blood specimen / Unknown Venipuncture / Unknown 02/08/2025 5:10 AM EDT 02/08/2025 8:12 AM EDT us Calin Mcgill MD LAB BLOOD ORDERABLES Final Resul t [facility] [address] [place] [address], documented in this encounter Visit Diagnoses Diagnosis Hypokalemia Hypopotassemia documented in this encounter Care Teams Process Mechanic Relationship Specialty Start Date End Date Grady Helm MD [address] [place] [address] PCP - General Internal Medicine 01/03/25 documented as of this encounter
--- OUTSIDE RECORDS SUMMARY | 2025-07-08 23:09 | XMS_ITS | Encounter Summary ---
Author Organization [facility], Address [address] [place] [address] Phone Care Team Providers Care Furnace Feeder Name Role Phone Dai Ortega DO Primary Care Provider [phone] Reason for Visit * Reason Comments Med Refill Encounter Details Date Type Department Care Team (Late st Contact Info) Description 02/26/2021 Refill [facility] [address] [place] [address] Conrad Shah MD [address] [place] [id number] Social History Tobacco Use Types Packs/Day Years [...] on filedocumented in this encounter Care Teams Furnace Feeder Relationship Specialty Start Date End Date Dai Ortega DO PCP - General 06/29/19 04/24/21 documented as of this encounter
--- OUTSIDE RECORDS SUMMARY | 2025-07-08 23:09 | XMS_ITS | Encounter Summary ---
Author Organization [facility] Address [address] [place] [address] Care Team Providers Care Repairer Screen Crusher Name Role Phone Grady Helm MD Primary Care Provider [phone]- [phone] Encounter Details Date Type Department Care Team (Late st Contact Info) Description 02/10/2025 Lab Requisition [facility] - Main Lab [address] [facility] [place] [address] Calin Mcgill MD [address] [place] [address] Chronic kidney disease, unspecified; Vitamin D deficiency, [...] LAB CHEMISTRY METHOD 02/10/2025 9:24 AM EDT [facility] Blood Venous blood specimen / Unknown Venipuncture / Unknown 02/10/2025 6:56 AM EDT 02/10/2025 8:10 AM EDT us Calin Mcgill MD LAB BLOOD ORDERABLES Final Resul t Performing Organization Address City/[facility]/ZIP Co de Phone Number [facility] [address] [place] [address], * (ABNORMAL) Magnesium (02/10/2025 6:56 AM EDT) Magnesium 0.9(LL) 1.9 - 2.6 mg/dL LAB CHEMISTRY METHOD 02/10/2025 9:44 AM EDT [facility] Blood Venous blood specimen / Unknown Venipuncture / Unknown 02/10/2025 6:56 AM EDT 02/10/2025 8:10 AM EDT us Calin Mcgill MD LAB BLOOD ORDERABLES Final Resul t [facility] [address] [place] [address], [place] [phone] * Vitamin D 25 hydroxy (02/10/2025 6:56 AM EDT) Vit D, 25-Hydroxy 79.6 30.0 - 80.0 ng/mL LAB CHEMISTRY METHOD 02/10/2025 10:04 AM EDT [facility] Blood Venous blood specimen / Unknown Venipuncture / Unknown 02/10/2025 6:56 AM EDT 02/10/2025 8:10 AM EDT Calin Mcgill MD LAB BLOOD ORDERABLES Final Resul t Performing Organization Address [facility]/ZIP Co de Phone Number [facility] [address] [place] [address], [place] [phone] * Parathyroid hormone intact (02/10/2025 6:56 AM EDT) PTH 82.4 18.5 - 88.0 pcg/mL LAB CHEMISTRY METHOD 02/10/2025 10:04 AM EDT [facility] Blood Venous blood specimen / Unknown Venipuncture / Unknown 02/10/2025 6:56 AM EDT 02/10/2025 8:10 AM EDT us Calin Mcgill MD LAB BLOOD ORDERABLES Final Resul t Performing Organization Address [facility]/ZIP Co de Phone Number [facility] [address] [place] [address], [place] [phone] documented in this encounter Visit Diagnoses Diagnosis Chronic kidney disease, unspecified Vitamin D deficiency, unspecified documented in this encounter Care Teams Repairer Screen Crusher Relationship Specialty Start Date End Date Grady Helm MD [address] [place] [address] PCP - General Internal Medicine 01/03/25 documented as of this encounter
--- OUTSIDE RECORDS SUMMARY | 2025-07-08 23:09 | XMS_ITS | Encounter Summary ---
Author Organization [facility] Address [address] [place] [address] Care Team Providers Care Social Science Analyst Name Role Phone Grady Helm MD Primary Care Provider [phone]- [phone] Encounter Details Date Type Department Care Team (Late st Contact Info) Description 02/07/2025 Lab Requisition [facility] - Main Lab [address] [facility] [place] [address] Calin Mcgill MD [address] [place] [address] Vitamin D deficiency, unspecified; Anemia, unspecified; Chronic [...] disease, unspecified Heart failure, unspecified (CMS/HCC V24, [facility] V28) VITAMIN D 25 HYDROXY Routine 02/07/2025 5:22 AM EDT Vitamin D deficiency, unspecified Anemia, unspecified Chronic kidney disease, unspecified Heart failure, unspecified ([facility] V24, [facility] V28) COMPLETE BLOOD COUNT Routine 02/07/2025 5:22 AM EDT Vitamin D deficiency, unspecified Anemia, unspecified Chronic kidney disease, unspecified Heart failure, unspecified ([facility] V24, [facility] V28) IRON Routine 02/07/2025 5:22 AM EDT Vitamin D deficiency, unspecified Anemia, unspecified Chronic kidney disease, unspecified Heart failure, unspecified ([facility] V24, [facility] V28) FOLATE Routine 02/07/2025 5:22 AM EDT Vitamin D deficiency, unspecified Anemia, unspecified Chronic kidney disease, unspecified Heart failure, unspecified ([facility] V24, [facility] V28) VITAMIN B12 Routine 02/07/2025 5:22 AM EDT Vitamin D deficiency, unspecified Anemia, unspecified Chronic kidney disease, unspecified Heart failure, unspecified ([facility] V24, [facility] V28) COMPREHENSIVE METABOLIC PANEL Routine 02/07/2025 5:22 AM EDT Vitamin D deficiency, unspecified Anemia, unspecified Chronic kidney disease, unspecified Heart failure, unspecified ([facility] V24, [facility] V28) documented in this encounter Results * (ABNORMAL) Iron (02/07/2025 5:22 AM EDT) Iron 13(L) 40 - 150 mcg/dL LAB CHEMISTRY METHOD 02/07/2025 1:51 PM EDT [facility] Blood Venous blood specimen / Unknown Venipuncture / Unknown 02/07/2025 5:22 AM EDT 02/07/2025 12:23 PM EDT Calin Mcgill MD LAB BLOOD ORDERABLES Final Resul t Performing Organization Address City/[facility]/ZIP Co de Phone Number [facility] [address] [place] [address], [place] [phone] * Vitamin D 25 hydroxy (02/07/2025 5:22 AM EDT) Vit D, 25-Hydroxy 73.2 30.0 - 80.0 ng/mL LAB CHEMISTRY METHOD 02/07/2025 2:52 PM EDT [facility] Blood Venous blood specimen / Unknown Venipuncture / Unknown 02/07/2025 5:22 AM EDT 02/07/2025 12:23 PM EDT us Calin Mcgill MD LAB BLOOD ORDERABLES Final Resul t Performing Organization Address [facility] Co de Phone Number [facility] [address] [place] [address], [place] [phone] * Vitamin B12 (02/07/2025 5:22 AM EDT) Pathologist [facility] Vitamin B-12 620 250 - 900 pcg/mL LAB CHEMISTRY METHOD 02/07/2025 2:15 PM EDT [facility] Blood Venous blood specimen / Unknown Venipuncture / Unknown 02/07/2025 5:22 AM EDT 02/07/2025 12:23 PM EDT us Calin Mcgill MD LAB BLOOD ORDERABLES Final Resul t Performing Organization Address [facility]/ZIP Co de Phone Number [facility] [address] [place] [address], [place] [phone] * Folate (02/07/2025 5:22 AM EDT) Folate 3.8 2.8 - 17.0 ng/ml LAB CHEMISTRY METHOD 02/07/2025 2:15 PM EDT [facility] Blood Venous blood specimen / Unknown Venipuncture / Unknown 02/07/2025 5:22 AM EDT 02/07/2025 12:23 PM EDT us Calin Mcgill MD LAB BLOOD ORDERABLES Final Resul t Performing Organization Address City/[facility]/ZIP Co de Phone Number [facility] [address] [place] [address], [place] [phone] * (ABNORMAL) Lipid panel with reflex to direct LDL (02/07/2025 5:22 AM EDT) Cholesterol 87 0 - 200 mg/dL LAB CHEMISTRY METHOD 02/07/2025 2:04 PM EDT [facility] Triglycerides 60 0 - 150 mg/dL LAB CHEMISTRY METHOD 02/07/2025 2:04 PM EDT [facility] HDL 28(L) >=40 mg/dL LAB CHEMISTRY METHOD 02/07/2025 2:04 PM EDT [facility] LDL Calculated 47 0 - 100 mg/dL LAB CHEMISTRY METHOD 02/07/2025 2:04 PM EDT [facility] VLDL Cholesterol Mo 12 mg/dL LAB CHEMISTRY METHOD 02/07/2025 2:04 PM EDT [facility] Non HDL Chol. (LDL+VLDL) 59 <145 mg/dL LAB CHEMISTRY METHOD 02/07/2025 2:04 PM EDT [facility] Chol/HDL Ratio 3.1 0.0 - 4.4 LAB CHEMISTRY METHOD 02/07/2025 2:04 PM EDT [facility] Blood Venous blood specimen / Unknown Venipuncture / Unknown 02/07/2025 5:22 AM EDT 02/07/2025 12:23 PM EDT us Calin Mcgill MD LAB BLOOD ORDERABLES Final Resul t [facility] [address] [place] [address], [place] [phone] * (ABNORMAL) Comprehensive metabolic panel (02/07/2025 5:22 AM EDT) Sodium 135 133 - 145 mmol/L LAB CHEMISTRY METHOD 02/07/2025 2:21 PM [facility] Potassium 2.8(LL) 3.5 - 5.5 mmol/L LAB CHEMISTRY METHOD 02/07/2025 2:21 PM [facility] Chloride 94(L) 96 - 110 mmol/L LAB CHEMISTRY METHOD 02/07/2025 2:21 PM [facility] CO2 28 21 - 32 mmol/L LAB CHEMISTRY METHOD 02/07/2025 2:21 PM [facility] Anion Gap 13(H) 3 - 11 LAB CHEMISTRY METHOD 02/07/2025 2:21 PM [facility] Glucose 60(L) 70 - 100 mg/dL LAB CHEMISTRY METHOD 02/07/2025 2:21 PM [facility] BUN 21 5 - 25 mg/dL LAB CHEMISTRY METHOD 02/07/2025 2:21 PM [facility] Creatinine 1.29(H) 0.50 - 1.10 mg/dL LAB CHEMISTRY METHOD 02/07/2025 2:21 PM [facility] eGFR 44(L) >=60 mL/min/1. 73m2 LAB CHEMISTRY METHOD 02/07/2025 2:21 PM [facility] Comment:Calculation based on the Chronic Kidney Disease Epidemiology Collaboration (CKD-EPI) equation refit without adjustment for race. BUN/Creatinine Ratio 16.3 LAB CHEMISTRY METHOD 02/07/2025 2:21 PM [facility] Calcium 6.2(L) 8.5 - 10.5 mg/dL LAB CHEMISTRY METHOD 02/07/2025 2:21 PM [facility] AST (SGOT) 26 10 - 42 unit/L LAB CHEMISTRY METHOD 02/07/2025 2:21 PM EDT [facility] ALT (SGPT) 17 10 - 60 unit/L LAB CHEMISTRY METHOD 02/07/2025 2:21 PM EDT [facility] Alkaline Phosphatase 92 42 - 121 unit/L LAB CHEMISTRY METHOD 02/07/2025 2:21 PM EDT [facility] Total Protein 4.7(L) 6.0 - 8.0 g/dL LAB CHEMISTRY METHOD 02/07/2025 2:21 PM EDT [facility] Albumin 1.9(L) 3.2 - 5.0 g/dL LAB CHEMISTRY METHOD 02/07/2025 2:21 PM EDT [facility] Total Bilirubin 0.5 0.0 - 1.4 mg/dL LAB CHEMISTRY METHOD 02/07/2025 2:21 PM EDT [facility] Blood Venous blood specimen / Unknown Venipuncture / Unknown 02/07/2025 5:22 AM EDT 02/07/2025 12:23 PM EDT us Calin Mcgill MD LAB BLOOD ORDERABLES Final Resul t [facility] [address] [place] [address], * (ABNORMAL) Complete blood count (02/07/2025 5:22 AM EDT) WBC 9.0 4.8 - 10.8 K/mcL LAB HEMETOLOGY METHOD 02/07/2025 1:49 PM EDT [facility] RBC 2.80(L) 3.80 - 4.80 M/mcL LAB HEMETOLOGY METHOD 02/07/2025 1:49 PM EDT [facility] Hemoglobin 7.4(L) 11.5 - 16.0 g/dL LAB HEMETOLOGY METHOD 02/07/2025 1:49 PM EDT [facility] Hematocrit 23.9(L) 35.0 - 47.0 % LAB HEMETOLOGY METHOD 02/07/2025 1:49 PM EDT [facility] MCV 84.5 79.0 - 98.0 FL LAB HEMETOLOGY METHOD 02/07/2025 1:49 PM EDT [facility] MCH 26.1(L) 27.0 - 32.0 pcg LAB HEMETOLOGY METHOD 02/07/2025 1:49 PM EDT [facility] MCHC 31.0(L) 32.0 - 37.0 g/dL LAB HEMETOLOGY METHOD 02/07/2025 1:49 PM EDT [facility] RDW 23.9(H) 11.0 - 15.0 % LAB HEMETOLOGY METHOD 02/07/2025 1:49 PM EDT [facility] Platelets 337 130 - 400 K/mcL LAB HEMETOLOGY METHOD 02/07/2025 1:49 PM EDT [facility] MPV 10.5 7.0 - 11.0 FL LAB HEMETOLOGY METHOD 02/07/2025 1:49 PM EDT [facility] NRBC 0.0 <1.0 % LAB HEMETOLOGY METHOD 02/07/2025 1:49 PM EDT [facility] NRBC Absolute 0.00 <0.10 K/mcL LAB HEMETOLOGY METHOD 02/07/2025 1:49 PM EDT [facility] Blood Venous blood specimen / Unknown Venipuncture / Unknown 02/07/2025 5:22 AM EDT 02/07/2025 12:23 PM EDT us Calin Mcgill MD LAB BLOOD ORDERABLES Final Resul t [facility] [address] [place] [address], documented in this encounter Visit Diagnoses Diagnosis Vitamin D deficiency, unspecified Anemia, unspecified Chronic kidney disease, unspecified Heart failure, unspecified (CMS/HCC V24, CMS/HCC V28) Heart failure, unspecified documented in this encounter Care Teams Social Science Analyst Relationship Specialty Start Date End Date Grady Helm MD [address] [place] [address] PCP - General Internal Medicine 01/03/25 documented as of this encounter
--- OUTSIDE RECORDS SUMMARY | 2025-07-08 23:10 | XMS_ITS | Encounter Summary ---
Author Organization [facility], Address [address] [place] [address] Phone Care Team Providers Care Animal Ecologist Name Role Phone Unavailable Primary Care Provider Unavailabl e Encounter Details Date Type Department Care Team (Late st Contact Info) Description 01/13/2025 Documentation Only [facility], [address] [place] [address] [place], [place] [address] [place] [address] Social History Tobacco Use Types [...]
--- OUTSIDE RECORDS SUMMARY | 2025-07-08 23:10 | XMS_ITS | Patient Health Record ---
Author Organization [facility] Address [address] [place] [address] Care Team Providers Care Junior Administrative Assistant Name Role Phone Jordan Dai BRYSON Primary Care Provider Sanya Reed Unavailable [phone] Allergies Allergen (clinical drug ingredient) Drug/Non Drug [...] Status W/U Status Risk Notes Problem Lymphedema (55730309) Lymphedema (I89.0) Active confirmed Problem Psoriasis (5636438) Psoriasis (L40.9) Active confirmed Plan Of Treatment Pending Test Test Name Order Date [id number] SKIN/TISSUE 12/02/2018 Insurance Providers Payer Name Payer Address Payer Phone Subscriber Number Group Number Insured Name Patient Relationship to Insured Coverage Start Date Coverage End Date [facility] [address] [place] [address] [id number] Binta Vidal Self - patient is the [...]
--- OUTSIDE RECORDS SUMMARY | 2025-07-08 23:10 | XMS_ITS | Clinical Summary ---
Author Organization [facility], Address [address] [place] [address] [place] [address] Phone Care Team Providers Care Integrated Circuit Layout Designer Name Role Phone Unavailable Primary Care Provider [...] Telephone [facility] [address] [place] [address] Irena Mena [place] from Last 3 Months [...] to 51 Years) Discontinued 07/25/2020, 12/28/2018 Insurance [facility]
--- OUTSIDE RECORDS SUMMARY | 2025-07-08 23:10 | XMS_ITS | Clinical Summary ---
Author Organization [facility] Address [address] [place] [address] Phone Care Team Providers Care Hand Molder Name Role Phone Unavailable Primary Care Provider [...] It is not the complete legal health record.[facility]
--- OUTSIDE RECORDS SUMMARY | 2025-07-08 23:12 | XMS_ITS | Encounter Summary ---
Author Organization [facility] Address [address] [place] [address] Care Team Providers Care Intern Brand Name Role Phone Grady Helm MD Primary Care Provider +1- [phone] Encounter Details Date Type Department Care Team (Late st Contact Info) Description 01/13/2025 Lab Requisition [facility] - Main Lab [address] [facility] [place] [address] Grady Helm MD [address] [place] [address] Anemia, unspecified Social History Tobacco Use Types [...] K/mcL LAB HEMETOLOGY METHOD 01/14/2025 12:08 PM [facility] RBC 2.70(L) 3.80 - 4.80 M/mcL LAB HEMETOLOGY METHOD 01/14/2025 12:08 PM [facility] Hemoglobin 7.3(L) 11.5 - 16.0 g/dL LAB HEMETOLOGY METHOD 01/14/2025 12:08 PM [facility] Hematocrit 23.5(L) 35.0 - 47.0 % LAB HEMETOLOGY METHOD 01/14/2025 12:08 PM [facility] MCV 85.8 79.0 - 98.0 FL LAB HEMETOLOGY METHOD 01/14/2025 12:08 PM [facility] MCH 26.6(L) 27.0 - 32.0 pcg LAB HEMETOLOGY METHOD 01/14/2025 12:08 PM [facility] MCHC 31.1(L) 32.0 - 37.0 g/dL LAB HEMETOLOGY METHOD 01/14/2025 12:08 PM [facility] RDW 18.8(H) 11.0 - 15.0 % LAB HEMETOLOGY METHOD 01/14/2025 12:08 PM [facility] Platelets 138 130 - 400 K/mcL LAB HEMETOLOGY METHOD 01/14/2025 12:08 PM [facility] MPV 10.5 7.0 - 11.0 FL LAB HEMETOLOGY METHOD 01/14/2025 12:08 PM [facility] NRBC 0.0 <1.0 % LAB HEMETOLOGY METHOD 01/14/2025 12:08 PM [facility] NRBC Absolute 0.00 <0.10 K/mcL LAB HEMETOLOGY METHOD 01/14/2025 12:08 PM [facility] Blood Venous blood specimen / Unknown Venipuncture / Unknown 01/14/2025 8:55 AM EDT 01/14/2025 10:57 AM EDT Grady Helm MD LAB BLOOD ORDERABLES Final Result [facility] [address] [place] [address], documented in this encounter Visit Diagnoses Diagnosis Anemia, unspecified documented in this encounter Care Teams Intern Brand Relationship Specialty Start Date End Date Grady Helm MD [address] [place] [address] PCP - General Internal Medicine 01/03/25 documented as of this encounter
--- OUTSIDE RECORDS SUMMARY | 2025-07-08 23:12 | XMS_ITS | Encounter Summary ---
Author Organization [facility] Address [address] [place] [address] Care Team Providers Care Outdoor Adventure Instructor Name Role Phone Grady Helm MD Primary Care Provider +1- [phone] Encounter Details Date Type Department Care Team (Late st Contact Info) Description 01/03/2025 Lab Requisition [facility] - Main Lab 299 [facility] [place] [id number] Grady Helm MD [address] [place] [address] Cellulitis, unspecified Social History Tobacco Use Types [...] mmol/L LAB CHEMISTRY METHOD 01/03/2025 10:55 AM [facility] Potassium 4.2 3.5 - 5.5 mmol/L LAB CHEMISTRY METHOD 01/03/2025 10:55 AM [facility] Chloride 106 96 - 110 mmol/L LAB CHEMISTRY METHOD 01/03/2025 10:55 AM [facility] CO2 25 21 - 32 mmol/L LAB CHEMISTRY METHOD 01/03/2025 10:55 AM [facility] Anion Gap 7 3 - 11 LAB CHEMISTRY METHOD 01/03/2025 10:55 AM [facility] Glucose 75 70 - 100 mg/dL LAB CHEMISTRY METHOD 01/03/2025 10:55 AM [facility] BUN 24 5 - 25 mg/dL LAB CHEMISTRY METHOD 01/03/2025 10:55 AM [facility] Creatinine 1.34(H) 0.50 - 1.10 mg/dL LAB CHEMISTRY METHOD 01/03/2025 10:55 AM [facility] eGFR 42(L) >=60 mL/min/1. 73m2 LAB CHEMISTRY METHOD 01/03/2025 10:55 AM [facility] Comment:Calculation based on the Chronic Kidney Disease Epidemiology Collaboration (CKD-EPI) equation refit without adjustment for race. BUN/Creatinine Ratio 17.9 LAB CHEMISTRY METHOD 01/03/2025 10:55 AM [facility] Calcium 8.3(L) 8.5 - 10.5 mg/dL LAB CHEMISTRY METHOD 01/03/2025 10:55 AM [facility] AST (SGOT) 75(H) 10 - 42 unit/L LAB CHEMISTRY METHOD 01/03/2025 10:55 AM [facility] ALT (SGPT) 40 10 - 60 unit/L LAB CHEMISTRY METHOD 01/03/2025 10:55 AM EDT [facility] Alkaline Phosphatase 84 42 - 121 unit/L LAB CHEMISTRY METHOD 01/03/2025 10:55 AM EDT [facility] Total Protein 5.5(L) 6.0 - 8.0 g/dL LAB CHEMISTRY METHOD 01/03/2025 10:55 AM [facility] Albumin 1.9(L) 3.2 - 5.0 g/dL LAB CHEMISTRY METHOD 01/03/2025 10:55 AM T [facility] Total Bilirubin 0.4 0.0 - 1.4 mg/dL LAB CHEMISTRY METHOD 01/03/2025 10:55 AM [facility] Blood Venous blood specimen / Unknown Venipuncture / Unknown 01/03/2025 8:30 AM EDT 01/03/2025 10:08 AM EDT Grady Helm MD LAB BLOOD ORDERABLES Final Result [facility] [address] [place] [address], * (ABNORMAL) Complete blood count (01/03/2025 8:30 AM EDT) WBC 7.5 4.8 - 10.8 K/mcL LAB HEMETOLOGY METHOD 01/03/2025 10:23 AM [facility] RBC 2.90(L) 3.80 - 4.80 M/[facility] LAB HEMETOLOGY METHOD 01/03/2025 10:23 AM [facility] Hemoglobin 7.9(L) 11.5 - 16.0 g/dL LAB HEMETOLOGY METHOD 01/03/2025 10:23 AM [facility] Hematocrit 25.0(L) 35.0 - 47.0 % LAB HEMETOLOGY METHOD [facility]/03[facility] MCV 85.3 79.0 - 98.0 [...] Result [facility] [address] [place] [address], documented in this encounter Visit Diagnoses Diagnosis Cellulitis, unspecified documented in this encounter Care Teams Outdoor Adventure Instructor Relationship Specialty Start Date End Date Grady Helm MD [address] [place] [address] PCP - General Internal Medicine 01/03/25 documented as of this encounter
--- OUTSIDE RECORDS SUMMARY | 2025-07-08 23:13 | XMS_ITS | Encounter Summary ---
Author Organization [facility] Address [address] [place] [address] Care Team Providers Care College Sports Assistant Name Role Phone Grady Helm MD Primary Care Provider +1- [phone] Encounter Details Date Type Department Care Team (Late st Contact Info) Description 01/17/2025 Lab Requisition [facility] - Main Lab 299 [facility] [place] [address] Grady Helm MD [address] [place] [address] Cellulitis, unspecified Social History Tobacco Use Types [...] mmol/L LAB CHEMISTRY METHOD 01/18/2025 1:31 PM [facility] Potassium 3.6 3.5 - 5.5 mmol/L LAB CHEMISTRY METHOD 01/18/2025 1:31 PM [facility] Chloride 101 96 - 110 mmol/L LAB CHEMISTRY METHOD 01/18/2025 1:31 PM [facility] CO2 25 21 - 32 mmol/L LAB CHEMISTRY METHOD 01/18/2025 1:31 PM [facility] Anion Gap 14(H) 3 - 11 LAB CHEMISTRY METHOD 01/18/2025 1:31 PM [facility] Glucose 63(L) 70 - 100 mg/dL LAB CHEMISTRY METHOD 01/18/2025 1:31 PM [facility] BUN 28(H) 5 - 25 mg/dL LAB CHEMISTRY METHOD 01/18/2025 1:31 PM [facility] Creatinine 1.89(H) 0.50 - 1.10 mg/dL LAB CHEMISTRY METHOD 01/18/2025 1:31 PM [facility] eGFR 28(L) >=60 mL/min/1. 73m2 LAB CHEMISTRY METHOD 01/18/2025 1:31 PM [facility] Comment:Calculation based on the Chronic Kidney Disease Epidemiology Collaboration (CKD-EPI) equation refit without adjustment for race. BUN/Creatinine Ratio 14.8 LAB CHEMISTRY METHOD 01/18/2025 1:31 PM [facility] Calcium 7.7(L) 8.5 - 10.5 mg/dL LAB CHEMISTRY METHOD 01/18/2025 1:31 PM [facility] Blood Venous blood specimen / Unknown Venipuncture / Unknown 01/18/2025 8:01 AM EDT 01/18/2025 11:05 AM EDT us Grady B Jagadeesan MD LAB BLOOD ORDERABLES Final Result [facility] [address] [place] [address], * (ABNORMAL) Complete blood count (01/18/2025 8:01 AM EDT) WBC 2.3(L) 4.8 - 10.8 K/mcL LAB HEMETOLOGY METHOD 01/18/2025 12:10 PM EDT [facility] RBC 2.90(L) 3.80 - 4.80 M/mcL LAB HEMETOLOGY METHOD 01/18/2025 12:10 PM EDT [facility] Hemoglobin 7.7(L) 11.5 - 16.0 g/dL LAB HEMETOLOGY METHOD 01/18/2025 12:10 PM EDT [facility] Hematocrit 24.5(L) 35.0 - 47.0 % LAB HEMETOLOGY METHOD 01/18/2025 12:10 PM EDT [facility] MCV 84.2 79.0 - 98.0 FL LAB HEMETOLOGY METHOD 01/18[facility]2025 [facility] MCH 26.5(L) 27.0 - 32.0 pcg LAB HEMETOLOGY METHOD 01/18/2025 12:10 PM EDT [facility] MCHC 31.4(L) 32.0 - 37.0 g/dL LAB HEMETOLOGY METHOD 01/18/2025 12:10 PM EDT [facility] RDW 19.1(H) 11.0 - 15.0 % LAB HEMETOLOGY METHOD 01/18/2025 12:10 PM T [facility] Platelets 107(L) 130 - 400 K/mcL LAB HEMETOLOGY METHOD 01/18/2025 12:10 PM EDT [facility] MPV 11.4(H) 7.0 - 11.0 FL LAB HEMETOLOGY METHOD 01/18/2025 12:10 PM EDT [facility] NRBC 0.0 <1.0 % LAB HEMETOLOGY METHOD 01/18/2025 12:10 PM EDT [facility] NRBC Absolute 0.00 <0.10 K/mcL LAB HEMETOLOGY METHOD 01/18/2025 12:10 PM EDT [facility] Blood Venous blood specimen / Unknown Venipuncture / Unknown 01/18/2025 8:01 AM EDT 01/18/2025 11:05 AM EDT us Grady Helm MD LAB BLOOD ORDERABLES Final Result [facility] [address] [place] [address], documented in this encounter Visit Diagnoses Diagnosis Cellulitis, unspecified documented in this encounter Care Teams College Sports Assistant Relationship Specialty Start Date End Date Grady Helm MD [address] [place] [address] PCP - General Internal Medicine 01/03/25 documented as of this encounter
--- OUTSIDE RECORDS SUMMARY | 2025-07-08 23:13 | XMS_ITS | Encounter Summary ---
Author Organization [facility] Address [address] [place] [address] Care Team Providers Care Tile Trimmer Name Role Phone Grady Helm MD Primary Care Provider +1- [phone] Encounter Details Date Type Department Care Team (Late st Contact Info) Description 01/04/2025 Lab Requisition [facility] - Main Lab 299 [facility] [place] [address] Grady Helm MD [address] [place] [address] Heart failure, unspecified (CMS/HCC V24, CMS/HCC V28); [...] Complete blood count (01/05/2025 5:54 AM EDT) [facility] WBC 5.9 4.8 - 10.8 K/mcL LAB HEMETOLOGY METHOD 01/05/2025 8:51 AM [facility] RBC 2.80(L) 3.80 - 4.80 M/mcL LAB HEMETOLOGY METHOD 01/05/2025 8:51 AM [facility] Hemoglobin 7.5(L) 11.5 - 16.0 g/dL LAB HEMETOLOGY METHOD 01/05/2025 8:51 AM [facility] Hematocrit 24.9(L) 35.0 - 47.0 % LAB HEMETOLOGY METHOD 01/05/2025 8:51 AM [facility] MCV 88.0 79.0 - 98.0 FL LAB HEMETOLOGY METHOD 01/05/2025 8:51 AM [facility] MCH 26.5(L) 27.0 - 32.0 pcg LAB HEMETOLOGY METHOD 01/05/2025 8:51 AM [facility] MCHC 30.1(L) 32.0 - 37.0 g/dL LAB HEMETOLOGY METHOD 01/05/2025 8:51 AM [facility] RDW 18.1(H) 11.0 - 15.0 % LAB HEMETOLOGY METHOD 01/05/2025 8:51 AM [facility] Platelets 512(H) 130 - 400 K/mcL LAB HEMETOLOGY METHOD 01/05/2025 8:51 AM [facility] MPV 9.2 7.0 - 11.0 FL LAB HEMETOLOGY METHOD 01/05/2025 8:51 AM [facility] NRBC 0.0 <1.0 % LAB HEMETOLOGY METHOD 01/05/2025 8:51 AM [facility] NRBC Absolute 0.00 <0.10 K/mcL LAB HEMETOLOGY METHOD 01/05/2025 8:51 AM EDT [facility] Blood Venous blood specimen / Unknown Venipuncture / Unknown 01/05/2025 5:54 AM EDT 01/05/2025 8:30 AM EDT us Grday Helm MD LAB BLOOD ORDERABLES Final Result [facility] [address] [place] [address], documented in this encounter Visit Diagnoses Diagnosis Heart failure, unspecified (CMS/HCC V24, CMS/HCC V28) Heart failure, unspecified Anemia, unspecified documented in this encounter Care Teams Tile Trimmer Relationship Specialty Start Date End Date Grady Helm MD [address] [place] [address] PCP - General Internal Medicine 01/03/25 documented as of this encounter
--- OUTSIDE RECORDS SUMMARY | 2025-07-08 23:14 | XMS_ITS | Encounter Summary ---
Author Organization [facility] Address [address] [place] [address] Care Team Providers Care Alternative Medicine Practitioner Name Role Phone Grady Helm MD Primary Care Provider +1- [phone] Encounter Details Date Type Department Care Team (Late st Contact Info) Description 01/20/2025 Lab Requisition [facility] - Main Lab 299 [facility] [place] [address] Grady Helm MD [address] [place] [address] Heart failure, unspecified (CMS/HCC V24, CMS/HCC V28) [...] LAB CHEMISTRY METHOD 01/20/2025 8:[address] [facility] Blood Venous blood specimen / Unknown Venipuncture / Unknown 01/20/2025 6:36 AM EDT 01/20/2025 7:16 AM EDT Grady Helm MD LAB BLOOD ORDERABLES Final Result [facility] [address] [place] [address], documented in this encounter Visit Diagnoses Diagnosis Heart failure, unspecified (CMS/HCC V24, CMS/HCC V28) Heart failure, unspecified documented in this encounter Care Teams Alternative Medicine Practitioner Relationship Specialty Start Date End Date Grady Helm MD [address] [place] [address] PCP - General Internal Medicine 01/03/25 documented as of this encounter
--- OUTSIDE RECORDS SUMMARY | 2025-07-08 23:15 | XMS_ITS | Encounter Summary ---
Author Organization [facility] Address [address] [place] [address] Care Team Providers Care Oyster Worker Name Role Phone Grady Helm MD Primary Care Provider +1- [phone] Encounter Details Date Type Department Care Team (Late st Contact Info) Description 01/23/2025 Lab Requisition [facility] - Main Lab 299 [facility] [address] Grady Helm MD [address] [place] [address] Cellulitis, unspecified Social History Tobacco Use Types [...] unspecified documented in this encounter Care Teams Oyster Worker Relationship Specialty Start Date End Date Grady Helm MD [address] [place] [address] PCP - General Internal Medicine 01/03/25 documented as of this encounter
--- OUTSIDE RECORDS SUMMARY | 2025-07-08 23:15 | XMS_ITS | Clinical Summary ---
Author Organization [facility] Address [address] [place] [address] Care Team Providers Care Human Capital Consultant Name Role Phone Unavailable Primary Care [...] DAY 10/16/2017 Active ergocalciferol (VITAMIN D2) capsule 53052 units TAKE ONE CAPSULE BY MOUTH EVERY [...]
--- OUTSIDE RECORDS SUMMARY | 2025-07-08 23:16 | XMS_ITS | Clinical Summary ---
Author Organization [address] Address [address] [place] [address] Phone Care Team Providers Care Mail Inserter Name Role Phone Grady Helm MD Primary Care Provider +1- [phone] Medications traZODone (DESYREL) 50 mg tablet Take [...] back pain DX:Low back pain Neuromuscular disorder ([facility] V24, [facility] V28) DX:Neuromuscular disorder ([facility]) Scoliosis DX:Scoliosis COPD (chronic obstructive pu lmonary disease) ([facility] V24, [facility] V28) DX:COPD (chronic o bstructive pulmonary disease) [...] Chronic kidney disease, unspecified Heart failure, unspecified ([facility] V24, [facility] V28) TEMITOPE SCREENING DIGITAL Routine 10/14/2018 5:09 PM EST Encounter for screening mammogram for malignant neoplasm of breast from Last 3 Months or Most Recently Relevant to Health Maintenance Results * (ABNORMAL) Basic metabolic panel (02/08/2025 5:10 AM EDT) Sodium 141 133 - 145 mmol/L LAB CHEMISTRY METHOD 02/08/2025 9:25 AM [facility] Potassium 3.4(L) 3.5 - 5.5 mmol/L LAB CHEMISTRY METHOD 02/08/2025 9:25 AM [facility] Chloride 102 96 - 110 mmol/L LAB CHEMISTRY METHOD 02/08/2025 9:25 AM [facility] CO2 31 21 - 32 mmol/L LAB CHEMISTRY METHOD 02/08/2025 9:25 AM [facility] Anion Gap 8 3 - 11 LAB CHEMISTRY METHOD 02/08/2025 9:25 AM [facility] Glucose 84 70 - 100 mg/dL LAB CHEMISTRY METHOD 02/08/2025 9:25 AM [facility] BUN 17 5 - 25 mg/dL LAB CHEMISTRY METHOD 02/08/2025 9:25 AM [facility] Creatinine 1.08 0.50 - 1.10 mg/dL LAB CHEMISTRY METHOD 02/08/2025 9:25 AM [facility] eGFR 54(L) >=60 mL/min/1. 73m2 LAB CHEMISTRY METHOD 02/08/2025 9:25 AM EDT [facility] Comment:Calculation based on the Chronic Kidney Disease Epidemiology Collaboration (CKD-EPI) equation refit without adjustment for race. BUN/Creatinine Ratio 15.7 LAB CHEMISTRY METHOD 02/08/2025 9:25 AM EDT [facility] Calcium 5.7(LL) 8.5 - 10.5 mg/dL LAB CHEMISTRY METHOD 02/08/2025 9:25 AM EDT [facility] Blood Venous blood specimen / Unknown Venipuncture / Unknown 02/08/2025 5:10 AM EDT 02/08/2025 8:12 AM EDT us Calin Mcgill MD LAB BLOOD ORDERABLES Final Resul t [facility] [address] [place] [address], [place] [phone] * (ABNORMAL) Lipid panel with reflex to direct LDL (02/07/2025 5:22 AM EDT) Cholesterol 87 0 - 200 mg/dL LAB CHEMISTRY METHOD 02/07/2025 2:04 PM EDT [facility] Triglycerides 60 0 - 150 mg/dL LAB CHEMISTRY METHOD [facility] HDL 28(L) >=40 mg/dL LAB CHEMISTRY METHOD 02/07/2025 2:04 PM EDT [facility] LDL Calculated 47 0 - 100 mg/dL LAB CHEMISTRY METHOD 02/07/2025 2:04 PM EDT [facility] VLDL Cholesterol Mo 12 mg/dL LAB CHEMISTRY METHOD 02/07/2025 2:04 PM EDT [facility] Non HDL Chol. (LDL+VLDL) 59 <145 mg/dL LAB CHEMISTRY METHOD 02/07/2025 2:04 PM EDT [facility] Chol/HDL Ratio 3.1 0.0 - 4.4 LAB CHEMISTRY METHOD 02/07/2025 2:04 PM EDT [facility] Blood Venous blood specimen / Unknown Venipuncture / Unknown 02/07/2025 5:22 AM EDT 02/07/2025 12:23 PM EDT us Calin Mcgill MD LAB BLOOD ORDERABLES Final Resul t [facility] [address] [place] [address], * TEMITOPE SCREENING DIGITAL (10/14/2018 5:09 PM EST) Anatomical Region Laterality Modality Mammography 10/14/2018 3:43 PM EST Narrative 10/14/2018 5:09 PM EST [facility] Diagnostic Imaging Department [address] [place] [address] Patient: RACHEL VIDAL/Age/Sex: 1950 - 68 - F Unit#: [id number] Location/Status: SPDIMAM/REG CLI Mnemonic/Ordering Site: DIGSC/SPMAM Ordering [...] MLO projection. Computer aided detection with the Baileyu 7.2-H was employed. TISSUE DENSITY: b. There [...] Routine screening mammogram BILATERAL in 1 year. 43533, 33314 3342F, 7025F Dictating Physician: SANDY MARLEY MD Electronically Signed by: SANDY MARLEY MD Dic Date/Time: 10/14/181708 Sign date/Time: 10/14/181708 Procedure Note Sandy Marley MD - 08/14/2022 [facility] Diagnostic Imaging Department [address] [place] [address] Patient: RACHEL VIDAL./Age/Sex: 1950 - 68 - F Unit#: [id number] Location/Status: SPDIMAM/REG CLI Mnemonic/Ordering Site: [facility] Ordering Physician: DAI HASKINS MD [facility] Screening Digital - 10/14/18 - 1603 EXAM: [facility] Screening Digital EXAM DATE AND TIME: 10/14/2018 4:03 PM HISTORY: Screening. Sister had breast carcinoma. COMPARISON: 08/26/14, 10/26/11, 10/12/09 TECHNIQUE: CC and MLO views of both breasts were obtained using fullfield digital mammography. Bilateral digital breast tomosynthesis was performedin the MLO projection. Computer aided detection with the apprupt.2-Blend Labsas employed. TISSUE DENSITY: b. There are scattered [...] Routine screening mammogram BILATERAL in 1 year. [address]2014, [address]130 3342F, 7083F Dictating Physician: SANDY MARLEY MD Electronically Signed by: SANDY MARLEY MD Dic Date/Time: 10/14/181708 Sign date/Time: 10/14/181708 Dai Haskins DO IMG BI PROCEDURES Final Result from Last 3 Months or Most Recently Relevant to Health Maintenance Insurance MEDICARE [place] [id number] Care Teams Mail Inserter Relationship Specialty Start Date End Date Grady Helm MD [address] [place] [address] PCP - General Internal Medicine 01/03/25
== END 2025-07-08 15:06 | disposition home or self-care (01) ==
LOC: HO.HMGCLDS 15:05
PROVIDERS: PCP Internal Medicine; Visit Provider Internal Medicine
DX: I50.30 Unspecified diastolic (congestive) heart failure (principal); J45.909 Unspecified asthma, uncomplicated
CPT/HCPCS: 36415; 71046; 80053; 82607; 82746; 83540; 83880; 84443; 85025; 85045; 85379

== ENCOUNTER → 2025-07-08 15:17 | Outpatient (BNV) | payer SELFPAY | PROVIDERS: PCP Internal Medicine; Visit Provider Radiology Diagnostic Radiology | DX: J45.909 Unspecified asthma, uncomplicated (principal); K44.9 Diaphragmatic hernia without obstruction or gangrene | CPT/HCPCS: 71046 ==

== ENCOUNTER 2025-07-18 13:32 | Outpatient (REF) | payer SELFPAY ==
[2025-07-18 14:37] LABS: Anion Gap 16 (12-20); Blood Urea Nitrogen 21 mg/dL (9-16); Calcium 9.0 mg/dL (8.4-10.2); Carbon Dioxide 28 mmol/L (22-29); Chloride 104 mmol/L (96-108); Estimated Glomerular Filt Rate 52; Potassium 3.6 mmol/L (3.3-5.1); Sodium 144 mmol/L (135-145)
--- OUTSIDE RECORDS SUMMARY | 2025-07-18 18:20 | XMS_ITS | Encounter Summary ---
Author Organization [facility] Address [address] [place] [address] Care Team Providers Care Second Operator Name Role Phone Grady Helm MD Primary Care Provider +1- [phone] Encounter Details Date Type Department Care Team (Late st Contact Info) Description 03/10/2025 Lab Requisition [facility] - Main Lab 299 [facility] [place] [address] Calin Mcgill MD [address] [place] [address] Hypomagnesemia Social History Tobacco Use Types Packs/Day [...] metabolism documented in this encounter Care Teams Second Operator Relationship Specialty Start Date End Date Grady Helm MD [address] [place] [address] PCP - General Internal Medicine 01/03/25 documented as of this encounter
--- OUTSIDE RECORDS SUMMARY | 2025-07-18 18:20 | XMS_ITS | Clinical Summary ---
Author Organization [facility] Address [address] [place] [address] Care Team Providers Care Open Soaper Tender Name Role Phone Unavailable Primary Care [...] DAY 10/16/2017 Active ergocalciferol (VITAMIN D2) capsule 79909 units TAKE ONE CAPSULE BY MOUTH EVERY [...]
--- OUTSIDE RECORDS SUMMARY | 2025-07-18 18:20 | XMS_ITS | Encounter Summary ---
Author Organization [facility] Address [address] [place] [address] Care Team Providers Care Receiver Stocker Name Role Phone Grady Helm MD Primary Care Provider +1- [phone] Encounter Details Date Type Department Care Team (Late st Contact Info) Description 01/13/2025 Lab Requisition [facility] - Main Lab 299 [facility] [place] [address] Grady Helm MD [address] [place] [address] Anemia, unspecified Social History Tobacco Use Types [...] K/mcL LAB HEMETOLOGY METHOD 01/14/2025 12:08 PM [facility] RBC 2.70(L) 3.80 - 4.80 M/mcL LAB HEMETOLOGY METHOD 01/14/2025 12:08 PM [facility] Hemoglobin 7.3(L) 11.5 - 16.0 g/dL LAB HEMETOLOGY METHOD 01/14/2025 12:08 PM [facility] Hematocrit 23.5(L) 35.0 - 47.0 % LAB HEMETOLOGY METHOD 01/14/2025 12:08 PM [facility] MCV 85.8 79.0 - 98.0 FL LAB HEMETOLOGY METHOD 01/14/2025 12:08 PM [facility] MCH 26.6(L) 27.0 - 32.0 pcg LAB HEMETOLOGY METHOD 01/14/2025 12:08 PM [facility] MCHC 31.1(L) 32.0 - 37.0 g/dL LAB HEMETOLOGY METHOD 01/14/2025 12:08 PM [facility] RDW 18.8(H) 11.0 - 15.0 % LAB HEMETOLOGY METHOD 01/14/2025 12:08 PM [facility] Platelets 138 130 - 400 K/mcL LAB HEMETOLOGY METHOD 01/14/2025 12:08 PM [facility] MPV 10.5 7.0 - 11.0 FL LAB HEMETOLOGY METHOD 01/14/2025 12:08 PM [facility] NRBC 0.0 <1.0 % LAB HEMETOLOGY METHOD 01/14/2025 12:08 PM [facility] NRBC Absolute 0.00 <0.10 K/mcL LAB HEMETOLOGY METHOD 01/14/2025 12:08 PM [facility] Blood Venous blood specimen / Unknown Venipuncture / Unknown 01/14/2025 8:55 AM EDT 01/14/2025 10:57 AM EDT Grady Helm MD LAB BLOOD ORDERABLES Final Result [facility] [address] [place] [address], documented in this encounter Visit Diagnoses Diagnosis Anemia, unspecified documented in this encounter Care Teams Receiver Stocker Relationship Specialty Start Date End Date Grady Helm MD [address] [place] [address] PCP - General Internal Medicine 01/03/25 documented as of this encounter
--- OUTSIDE RECORDS SUMMARY | 2025-07-18 18:20 | XMS_ITS | Encounter Summary ---
Author Organization [facility] Address [address] [place] [address] Care Team Providers Care Sanitizer Name Role Phone Grady Helm MD Primary Care Provider +1- [phone] Encounter Details Date Type Department Care Team (Late st Contact Info) Description 01/20/2025 Lab Requisition [facility] - Main Lab 299 [facility] [place] [address] Grady Helm MD [address] [place] [address] Heart failure, unspecified (CMS/HCC V24, CMS/HCC V28) [...] LAB CHEMISTRY METHOD 01/20/2025 8:58 AM EDT [facility] Blood Venous blood specimen / Unknown Venipuncture / Unknown 01/20/2025 6:36 AM EDT 01/20/2025 7:16 AM EDT Grady Helm MD LAB BLOOD ORDERABLES Final Result [facility] [address] [place] [address], documented in this encounter Visit Diagnoses Diagnosis Heart failure, unspecified (CMS/HCC V24, CMS/HCC V28) Heart failure, unspecified documented in this encounter Care Teams Sanitizer Relationship Specialty Start Date End Date Grady Helm MD [address] [place] [address] PCP - General Internal Medicine 01/03/25 documented as of this encounter
--- OUTSIDE RECORDS SUMMARY | 2025-07-18 18:20 | XMS_ITS | Encounter Summary ---
Author Organization [facility] Address [address] [place] [address] Care Team Providers Care Senior Cytogenetic Technologist Name Role Phone Grady Helm MD Primary Care Provider +1- [phone] Encounter Details Date Type Department Care Team (Late st Contact Info) Description 01/04/[address] [facility] - Main Lab 299 [facility] [place] [address] Grady Helm MD [address] [place] [address] Heart failure, unspecified (CMS/HCC V24, CMS/HCC V28); [...] Complete blood count (01/05/2025 5:54 AM EDT) [facility] WBC 5.9 4.8 - 10.8 K/mcL LAB HEMETOLOGY METHOD 01/05/2025 8:51 AM [facility] RBC 2.80(L) 3.80 - 4.80 M/mcL LAB HEMETOLOGY METHOD 01/05/2025 8:51 AM [facility] Hemoglobin 7.5(L) 11.5 - 16.0 g/dL LAB HEMETOLOGY METHOD 01/05/2025 8:51 AM [facility] Hematocrit 24.9(L) 35.0 - 47.0 % LAB HEMETOLOGY METHOD 01/05/2025 8:51 AM [facility] MCV 88.0 79.0 - 98.0 FL LAB HEMETOLOGY METHOD 01/05/2025 8:51 AM [facility] MCH 26.5(L) 27.0 - 32.0 pcg LAB HEMETOLOGY METHOD 01/05/2025 8:51 AM [facility] MCHC 30.1(L) 32.0 - 37.0 g/dL LAB HEMETOLOGY METHOD 01/05/2025 8:51 AM [facility] RDW 18.1(H) 11.0 - 15.0 % LAB HEMETOLOGY METHOD 01/05/2025 8:51 AM [facility] Platelets 512(H) 130 - 400 K/mcL LAB HEMETOLOGY METHOD 01/05/2025 8:51 AM [facility] MPV 9.2 7.0 - 11.0 FL LAB HEMETOLOGY METHOD 01/05/2025 8:51 AM [facility] NRBC 0.0 <1.0 % LAB HEMETOLOGY METHOD 01/05/2025 8:51 AM [facility] NRBC Absolute 0.00 <0.10 K/mcL LAB HEMETOLOGY METHOD 01/05/2025 8:51 AM EDT [facility] Blood Venous blood specimen / Unknown Venipuncture / Unknown 01/05/2025 5:54 AM EDT 01/05/2025 8:30 AM EDT us Grady Helm MD LAB BLOOD ORDERABLES Final Result [facility] [address] [place] [address], documented in this encounter Visit Diagnoses Diagnosis Heart failure, unspecified (CMS/HCC V24, CMS/HCC V28) Heart failure, unspecified Anemia, unspecified documented in this encounter Care Teams Senior Cytogenetic Technologist Relationship Specialty Start Date End Date Grady Helm MD [address] [place] [id number] PCP - General Internal Medicine 01/03/25 documented as of this encounter
--- OUTSIDE RECORDS SUMMARY | 2025-07-18 18:20 | XMS_ITS | Encounter Summary ---
Author Organization [facility] Address [address] [place] [address] Care Team Providers Care Patient Svcs Mgr Name Role Phone Grady Helm MD Primary Care Provider +1- [phone] Encounter Details Date Type Department Care Team (Late st Contact Info) Description 01/11/2025 Lab Requisition [facility] - Main Lab 299 [facility] [place] [address] Grady Helm MD [address] [place] [address] Heart failure, unspecified (CMS/HCC V24, CMS/HCC V28) [...] mmol/L LAB CHEMISTRY METHOD 01/11/2025 10:47 AM [facility] Potassium 3.7 3.5 - 5.5 mmol/L LAB CHEMISTRY METHOD 01/11/2025 10:47 AM [facility] Chloride 106 96 - 110 mmol/L LAB CHEMISTRY METHOD 01/11/2025 10:47 AM [facility] CO2 25 21 - 32 mmol/L LAB CHEMISTRY METHOD 01/11/2025 10:47 AM [facility] Anion Gap 10 3 - 11 LAB CHEMISTRY METHOD 01/11/2025 10:47 AM [facility] Glucose 67(L) 70 - 100 mg/dL LAB CHEMISTRY METHOD 01/11/2025 10:47 AM [facility] BUN 23 5 - 25 mg/dL LAB CHEMISTRY METHOD 01/11/2025 10:47 AM [facility] Creatinine 1.64(H) 0.50 - 1.10 mg/dL LAB CHEMISTRY METHOD 01/11/2025 10:47 AM [facility] eGFR 33(L) >=60 mL/min/1. 73m2 LAB CHEMISTRY METHOD 01/11/2025 10:47 AM [facility] Comment:Calculation based on the Chronic Kidney Disease Epidemiology Collaboration (CKD-EPI) equation refit without adjustment for race. BUN/Creatinine Ratio 14.0 LAB CHEMISTRY METHOD 01/11/2025 10:47 AM [facility] Calcium 7.6(L) 8.5 - 10.5 mg/dL LAB CHEMISTRY METHOD 01/11/2025 10:47 AM [facility] Blood Venous blood specimen / Unknown Venipuncture / Unknown 01/11/2025 6:12 AM EDT 01/11/2025 8:46 AM EDT us Grady Helm MD LAB BLOOD ORDERABLES Final Result [facility] [address] [place] [address], [place] [phone] * (ABNORMAL) Complete blood count (01/11/2025 6:12 AM EDT) WBC 3.7(L) 4.8 - 10.8 K/mcL LAB HEMETOLOGY METHOD 01/11/2025 10:00 AM EDT [facility] RBC 2.70(L) 3.80 - 4.80 M/mcL LAB HEMETOLOGY METHOD 01/11/2025 10:00 AM [facility] Hemoglobin 7.0(L) 11.5 - 16.0 g/dL LAB HEMETOLOGY METHOD 01/11/2025 10:00 AM [facility] Hematocrit 23.4(L) 35.0 - 47.0 % LAB HEMETOLOGY METHOD 01/11/2025 10:00 AM [facility] MCV 87.3 79.0 - 98.0 FL LAB HEMETOLOGY METHOD 01/11/2025 10:00 AM [facility] MCH 26.1(L) 27.0 - 32.0 pcg LAB HEMETOLOGY METHOD 01/11/2025 10:00 AM [facility] MCHC 29.9(L) 32.0 - 37.0 g/dL LAB HEMETOLOGY METHOD 01/11/2025 10:00 AM [facility] RDW 18.6(H) 11.0 - 15.0 % LAB HEMETOLOGY METHOD 01/11/2025 10:00 AM [facility] Platelets 196 130 - 400 K/mcL LAB HEMETOLOGY METHOD 01/11/2025 10:00 AM EDT [facility] MPV 10.0 7.0 - 11.0 FL LAB HEMETOLOGY METHOD 01/11/2025 10:00 AM EDT [facility] NRBC 0.0 <1.0 % LAB HEMETOLOGY METHOD 01/11/2025 10:00 AM EDT [facility] NRBC Absolute 0.00 <0.10 K/mcL LAB HEMETOLOGY METHOD 01/11/2025 10:00 AM EDT [facility] Blood Venous blood specimen / Unknown Venipuncture / Unknown 01/11/2025 6:12 AM EDT 01/11/2025 8:46 AM EDT Grady Helm MD LAB BLOOD ORDERABLES Final Result [facility] [address] [place] [address], documented in this encounter Visit Diagnoses Diagnosis Heart failure, unspecified (CMS/HCC V24, CMS/HCC V28) Heart failure, unspecified documented in this encounter Care Teams Patient Svcs Mgr Relationship Specialty Start Date End Date Grday Helm MD [address] [place] [id number] PCP - General Internal Medicine 01/03/25 documented as of this encounter
--- OUTSIDE RECORDS SUMMARY | 2025-07-18 18:20 | XMS_ITS | Clinical Summary ---
Author Organization [facility] Address [address] [place] [address] Phone Care Team Providers Care It Operations Analyst Name Role Phone Unavailable Primary Care Provider [...] It is not the complete legal health record.[facility]
--- OUTSIDE RECORDS SUMMARY | 2025-07-18 18:20 | XMS_ITS | Encounter Summary ---
Author Organization [facility] Address [address] [place] [address] Care Team Providers Care Business Case Analyst Name Role Phone Grady Helm MD Primary Care Provider +1- [phone] Encounter Details Date Type Department Care Team (Late st Contact Info) Description 02/08/[address] [facility] - Main Lab 299 [facility] [place] [address] Calin Mcgill MD [address] [place] [address] Hypokalemia Social History Tobacco Use Types Packs/Day [...] LAB CHEMISTRY METHOD 02/08/2025 9:25 AM EDT [facility] Potassium 3.4(L) 3.5 - [...] 73m2 LAB CHEMISTRY METHOD 02/08/2025 9:25 AM [facility] Comment:Calculation based on the Chronic Kidney Disease Epidemiology Collaboration (CKD-EPI) equation refit without adjustment for race. BUN/Creatinine Ratio 15.7 LAB CHEMISTRY METHOD 02/08/2025 9:25 AM [facility] Calcium 5.7(LL) 8.5 - 10.5 mg/dL LAB CHEMISTRY METHOD 02/08/2025 9:25 AM [facility] Blood Venous blood specimen / Unknown Venipuncture / Unknown 02/08/2025 5:10 AM EDT 02/08/2025 8:12 AM EDT us Calin Mcgill MD LAB BLOOD ORDERABLES Final Resul t [facility] [address] [place] [address], documented in this encounter Visit Diagnoses Diagnosis Hypokalemia Hypopotassemia documented in this encounter Care Teams Business Case Analyst Relationship Specialty Start Date End Date Grady Helm MD [address] [place] [address] PCP - General Internal Medicine 01/03/25 documented as of this encounter
--- OUTSIDE RECORDS SUMMARY | 2025-07-18 18:20 | XMS_ITS | Encounter Summary ---
Author Organization [facility] Address [address] [place] [address] Care Team Providers Care Truck Sales Manager Name Role Phone Grady Helm MD Primary Care Provider +1- [phone] Encounter Details Date Type Department Care Team (Late st Contact Info) Description 02/07/[address] [facility] - Main Lab 299 [facility] [place] [address] Calin Mcgill MD [address] [place] [address] Vitamin D deficiency, unspecified; Anemia, unspecified; Chronic [...] disease, unspecified Heart failure, unspecified (CMS/HCC V24, CMS/[facility] V28) VITAMIN D 25 HYDROXY Routine 02/07/2025 5:22 AM EDT Vitamin D deficiency, unspecified Anemia, unspecified Chronic kidney disease, unspecified Heart failure, unspecified ([facility] V24, [facility] V28) COMPLETE BLOOD COUNT Routine 02/07/2025 5:22 AM EDT Vitamin D deficiency, unspecified Anemia, unspecified Chronic kidney disease, unspecified Heart failure, unspecified ([facility] V24, [facility] V28) IRON Routine 02/07/2025 5:22 AM EDT Vitamin D deficiency, unspecified Anemia, unspecified Chronic kidney disease, unspecified Heart failure, unspecified ([facility] V24, [facility] V28) FOLATE Routine 02/07/2025 5:22 AM EDT Vitamin D deficiency, unspecified Anemia, unspecified Chronic kidney disease, unspecified Heart failure, unspecified ([facility] V24, [facility] V28) VITAMIN B12 Routine 02/07/2025 5:22 AM EDT Vitamin D deficiency, unspecified Anemia, unspecified Chronic kidney disease, unspecified Heart failure, unspecified ([facility] V24, [facility] V28) COMPREHENSIVE METABOLIC PANEL Routine 02/07/2025 5:22 AM EDT Vitamin D deficiency, unspecified Anemia, unspecified Chronic kidney disease, unspecified Heart failure, unspecified ([facility] V24, [facility] V28) documented in this encounter Results * (ABNORMAL) Iron (02/07/2025 5:22 AM EDT) Iron 13(L) 40 - 150 mcg/dL LAB CHEMISTRY METHOD 02/07/2025 1:51 PM EDT [facility] Blood Venous blood specimen / Unknown Venipuncture / Unknown 02/07/2025 5:22 AM EDT 02/07/2025 12:23 PM EDT Calin Mcgill MD LAB BLOOD ORDERABLES Final Resul t Performing Organization Address City/[facility]/ZIP Co de Phone Number [facility] [address] [place] [address], [place] [phone] * Vitamin D 25 hydroxy (02/07/2025 5:22 AM EDT) Vit D, 25-Hydroxy 73.2 30.0 - 80.0 ng/mL LAB CHEMISTRY METHOD 02/07/2025 2:52 PM EDT [facility] Blood Venous blood specimen / Unknown Venipuncture / Unknown 02/07/2025 5:22 AM EDT 02/07/2025 12:23 PM EDT us Calin Mcgill MD LAB BLOOD ORDERABLES Final Resul t Performing Organization Address [facility] Co de Phone Number [facility] [address] [place] [address], [place] [phone] * Vitamin B12 (02/07/2025 5:22 AM EDT) Pathologist [facility] Vitamin B-12 620 250 - 900 pcg/mL LAB CHEMISTRY METHOD 02/07/2025 2:15 PM EDT [facility] Blood Venous blood specimen / Unknown Venipuncture / Unknown 02/07/2025 5:22 AM EDT 02/07/2025 12:23 PM EDT us Calin Mcgill MD LAB BLOOD ORDERABLES Final Resul t Performing Organization Address [facility]/ZIP Co de Phone Number [facility] [address] [place] [address], [place] [phone] * Folate (02/07/2025 5:22 AM EDT) Folate 3.8 2.8 - 17.0 ng/ml LAB CHEMISTRY METHOD 02/07/2025 2:15 PM EDT [facility] Blood Venous blood specimen / Unknown Venipuncture / Unknown 02/07/2025 5:22 AM EDT 02/07/2025 12:23 PM EDT us Calin Mcgill MD LAB BLOOD ORDERABLES Final Resul t Performing Organization Address City/[facility]/ZIP Co de Phone Number [facility] [address] [place] [address], [place] [phone] * (ABNORMAL) Lipid panel with reflex to direct LDL (02/07/2025 5:22 AM EDT) Cholesterol 87 0 - 200 mg/dL LAB CHEMISTRY METHOD 02/07/2025 2:04 PM EDT [facility] Triglycerides 60 0 - 150 mg/dL LAB CHEMISTRY METHOD 02/07/2025 2:04 PM EDT [facility] HDL 28(L) >=40 mg/dL LAB CHEMISTRY METHOD 02/07/2025 2:04 PM EDT [facility] LDL Calculated 47 0 - 100 mg/dL LAB CHEMISTRY METHOD 02/07/2025 2:04 PM EDT [facility] VLDL Cholesterol Mo 12 mg/dL LAB CHEMISTRY METHOD 02/07/2025 2:04 PM EDT [facility] Non HDL Chol. (LDL+VLDL) 59 <145 mg/dL LAB CHEMISTRY METHOD 02/07/2025 2:04 PM EDT [facility] Chol/HDL Ratio 3.1 0.0 - 4.4 LAB CHEMISTRY METHOD 02/07/2025 2:04 PM EDT [facility] Blood Venous blood specimen / Unknown Venipuncture / Unknown 02/07/2025 5:22 AM EDT 02/07/2025 12:23 PM EDT us Calin Mcgill MD LAB BLOOD ORDERABLES Final Resul t [facility] [address] [place] [address], [place] [phone] * (ABNORMAL) Comprehensive metabolic panel (02/07/2025 5:22 AM EDT) Sodium 135 133 - 145 mmol/L LAB CHEMISTRY METHOD 02/07/2025 2:21 PM [facility] Potassium 2.8(LL) 3.5 - 5.5 mmol/L LAB CHEMISTRY METHOD 02/07/2025 2:21 PM [facility] Chloride 94(L) 96 - 110 mmol/L LAB CHEMISTRY METHOD 02/07/2025 2:21 PM [facility] CO2 28 21 - 32 mmol/L LAB CHEMISTRY METHOD 02/07/2025 2:21 PM [facility] Anion Gap 13(H) 3 - 11 LAB CHEMISTRY METHOD 02/07/2025 2:21 PM [facility] Glucose 60(L) 70 - 100 mg/dL LAB CHEMISTRY METHOD 02/07/2025 2:21 PM [facility] BUN 21 5 - 25 mg/dL LAB CHEMISTRY METHOD 02/07/2025 2:21 PM [facility] Creatinine 1.29(H) 0.50 - 1.10 mg/dL LAB CHEMISTRY METHOD 02/07/2025 2:21 PM [facility] eGFR 44(L) >=60 mL/min/1. 73m2 LAB CHEMISTRY METHOD 02/07/2025 2:21 PM [facility] Comment:Calculation based on the Chronic Kidney Disease Epidemiology Collaboration (CKD-EPI) equation refit without adjustment for race. BUN/Creatinine Ratio 16.3 LAB CHEMISTRY METHOD 02/07/2025 2:21 PM [facility] Calcium 6.2(L) 8.5 - 10.5 mg/dL LAB CHEMISTRY METHOD 02/07/2025 2:21 PM [facility] AST (SGOT) 26 10 - 42 unit/L LAB CHEMISTRY METHOD 02/07/2025 2:21 PM EDT [facility] ALT (SGPT) 17 10 - 60 unit/L LAB CHEMISTRY METHOD 02/07/2025 2:21 PM EDT [facility] Alkaline Phosphatase 92 42 - 121 unit/L LAB CHEMISTRY METHOD 02/07/2025 2:21 PM EDT [facility] Total Protein 4.7(L) 6.0 - 8.0 g/dL LAB CHEMISTRY METHOD 02/07/2025 2:21 PM EDT [facility] Albumin 1.9(L) 3.2 - 5.0 g/dL LAB CHEMISTRY METHOD 02/07/2025 2:21 PM EDT [facility] Total Bilirubin 0.5 0.0 - 1.4 mg/dL LAB CHEMISTRY METHOD 02/07/2025 2:21 PM EDT [facility] Blood Venous blood specimen / Unknown Venipuncture / Unknown 02/07/2025 5:22 AM EDT 02/07/2025 12:23 PM EDT us Calin Mcgill MD LAB BLOOD ORDERABLES Final Resul t [facility] [address] [place] [address], * (ABNORMAL) Complete blood count (02/07/2025 5:22 AM EDT) WBC 9.0 4.8 - 10.8 K/mcL LAB HEMETOLOGY METHOD 02/07/2025 1:49 PM EDT [facility] RBC 2.80(L) 3.80 - 4.80 M/mcL LAB HEMETOLOGY METHOD 02/07/2025 1:49 PM EDT [facility] Hemoglobin 7.4(L) 11.5 - 16.0 g/dL LAB HEMETOLOGY METHOD 02/07/2025 1:49 PM EDT [facility] Hematocrit 23.9(L) 35.0 - 47.0 % LAB HEMETOLOGY METHOD 02/07/2025 1:49 PM EDT [facility] MCV 84.5 79.0 - 98.0 FL LAB HEMETOLOGY METHOD 02/07/2025 1:49 PM EDT [facility] MCH 26.1(L) 27.0 - 32.0 pcg LAB HEMETOLOGY METHOD 02/07/2025 1:49 PM EDT [facility] MCHC 31.0(L) 32.0 - 37.0 g/dL LAB HEMETOLOGY METHOD 02/07/2025 1:49 PM EDT [facility] RDW 23.9(H) 11.0 - 15.0 % LAB HEMETOLOGY METHOD 02/07/2025 1:49 PM EDT [facility] Platelets 337 130 - 400 K/mcL LAB HEMETOLOGY METHOD 02/07/2025 1:49 PM EDT [facility] MPV 10.5 7.0 - 11.0 FL LAB HEMETOLOGY METHOD 02/07/2025 1:49 PM EDT [facility] NRBC 0.0 <1.0 % LAB HEMETOLOGY METHOD 02/07/2025 1:49 PM EDT [facility] NRBC Absolute 0.00 <0.10 K/mcL LAB HEMETOLOGY METHOD 02/07/2025 1:49 PM EDT [facility] Blood Venous blood specimen / Unknown Venipuncture / Unknown 02/07/2025 5:22 AM EDT 02/07/2025 12:23 PM EDT us Calin Mcgill MD LAB BLOOD ORDERABLES Final Resul t [facility] [address] [place] [address], documented in this encounter Visit Diagnoses Diagnosis Vitamin D deficiency, unspecified Anemia, unspecified Chronic kidney disease, unspecified Heart failure, unspecified (CMS/HCC V24, CMS/HCC V28) Heart failure, unspecified documented in this encounter Care Teams Truck Sales Manager Relationship Specialty Start Date End Date Grady Helm MD [address] [place] [id number] PCP - General Internal Medicine 01/03/25 documented as of this encounter
--- OUTSIDE RECORDS SUMMARY | 2025-07-18 18:20 | XMS_ITS | Encounter Summary ---
Author Organization [facility] Address [address] [place] [address] Care Team Providers Care Beam Doffer Name Role Phone Grady Helm MD Primary Care Provider +1- [phone] Encounter Details Date Type Department Care Team (Late st Contact Info) Description 01/08/2025 Lab Requisition [facility] - Main Lab [address] [facility] [place] [address] Grady Helm MD [address] [place] [address] Cellulitis, unspecified Social History Tobacco Use Types [...] mmol/L LAB CHEMISTRY METHOD 01/10/2025 10:32 AM [facility] Potassium 3.5 3.5 - 5.5 mmol/L LAB CHEMISTRY METHOD 01/10/2025 10:32 AM [facility] Chloride 104 96 - 110 mmol/L LAB CHEMISTRY METHOD 01/10/2025 10:32 AM [facility] CO2 25 21 - 32 mmol/L LAB CHEMISTRY METHOD 01/10/2025 10:32 AM [facility] Anion Gap 9 3 - 11 LAB CHEMISTRY METHOD 01/10/2025 10:32 AM [facility] Glucose 69(L) 70 - 100 mg/dL LAB CHEMISTRY METHOD 01/10/2025 10:32 AM [facility] BUN 23 5 - 25 mg/dL LAB CHEMISTRY METHOD 01/10/2025 10:32 AM [facility] Creatinine 1.57(H) 0.50 - 1.10 mg/dL LAB CHEMISTRY METHOD 01/10/2025 10:32 AM [facility] eGFR 35(L) >=60 mL/min/1. 73m2 LAB CHEMISTRY METHOD 01/10/2025 10:32 AM [facility] Comment:Calculation based on the Chronic Kidney Disease Epidemiology Collaboration (CKD-EPI) equation refit without adjustment for race. BUN/Creatinine Ratio 14.6 LAB CHEMISTRY METHOD 01/10/2025 10:32 AM [facility] Calcium 8.0(L) 8.5 - 10.5 mg/dL LAB CHEMISTRY METHOD 01/10/2025 10:32 AM [facility] Blood Venous blood specimen / Unknown Venipuncture / Unknown 01/10/2025 7:51 AM EDT 01/10/2025 9:39 AM EDT us Grady Helm MD LAB BLOOD ORDERABLES Final Result [facility] [address] [place] [address], * (ABNORMAL) Complete blood count (01/10/2025 7:51 AM EDT) WBC 3.5(L) 4.8 - 10.8 K/mcL LAB HEMETOLOGY METHOD 01/10/2025 10:52 AM EDT [facility] RBC 2.70(L) 3.80 - 4.80 M/mcL LAB HEMETOLOGY METHOD 01/10/2025 10:52 AM EDT [facility] Hemoglobin 7.2(L) 11.5 - 16.0 g/dL LAB HEMETOLOGY METHOD 01/10/2025 10:52 AM EDT [facility] Hematocrit 23.3(L) 35.0 - 47.0 % LAB HEMETOLOGY METHOD 01/10/2025 10:52 AM EDT [facility] MCV 86.3 79.0 - 98.0 FL LAB HEMETOLOGY METHOD 01/10/2025 10:52 AM EDT [facility] MCH 26.7(L) 27.0 - 32.0 pcg LAB HEMETOLOGY METHOD 01/10/2025 10:52 AM EDT [facility] MCHC 30.9(L) 32.0 - 37.0 g/dL LAB HEMETOLOGY METHOD 01/10/2025 10:52 AM EDT [facility] RDW 18.5(H) 11.0 - 15.0 % LAB HEMETOLOGY METHOD 01/10/2025 10:52 AM EDT [facility] Platelets 227 130 - 400 K/mcL LAB HEMETOLOGY METHOD 01/10/2025 10:52 AM EDT [facility] MPV 9.6 7.0 - 11.0 FL LAB HEMETOLOGY METHOD 01/10/2025 10:52 AM EDT [facility] NRBC 0.0 <1.0 % LAB HEMETOLOGY METHOD 01/10/2025 10:52 AM EDT [facility] NRBC Absolute 0.00 <0.10 K/mcL LAB HEMETOLOGY METHOD 01/10/2025 10:52 AM EDT [facility] Blood Venous blood specimen / Unknown Venipuncture / Unknown 01/10/2025 7:51 AM EDT 01/10/2025 9:39 AM EDT Grady Helm MD LAB BLOOD ORDERABLES Final Result [facility] [address] [place] [address], documented in this encounter Visit Diagnoses Diagnosis Cellulitis, unspecified documented in this encounter Care Teams Beam Doffer Relationship Specialty Start Date End Date Grady Helm MD [address] [place] [id number] PCP - General Internal Medicine 01/03/25 documented as of this encounter
--- OUTSIDE RECORDS SUMMARY | 2025-07-18 18:20 | XMS_ITS | Encounter Summary ---
Author Organization [facility] Address [address] [place] [address] Care Team Providers Care Press Bucker Name Role Phone Grady Helm MD Primary Care Provider +1- [phone] Encounter Details Date Type Department Care Team (Late st Contact Info) Description 01/03/2025 Lab Requisition [facility] - Main Lab [address] [facility] [place] [phone] Grady Helm MD [address] [place] [address] Cellulitis, unspecified Social History Tobacco Use Types [...] mmol/L LAB CHEMISTRY METHOD 01/03/2025 10:55 AM [facility] Potassium 4.2 3.5 - 5.5 mmol/L LAB CHEMISTRY METHOD 01/03/2025 10:55 AM [facility] Chloride 106 96 - 110 mmol/L LAB CHEMISTRY METHOD 01/03/2025 10:55 AM [facility] CO2 25 21 - 32 mmol/L LAB CHEMISTRY METHOD 01/03/2025 10:55 AM [facility] Anion Gap 7 3 - 11 LAB CHEMISTRY METHOD 01/03/2025 10:55 AM [facility] Glucose 75 70 - 100 mg/dL LAB CHEMISTRY METHOD 01/03/2025 10:55 AM [facility] BUN 24 5 - 25 mg/dL LAB CHEMISTRY METHOD 01/03/2025 10:55 AM [facility] Creatinine 1.34(H) 0.50 - 1.10 mg/dL LAB CHEMISTRY METHOD 01/03/2025 10:55 AM [facility] eGFR 42(L) >=60 mL/min/1. 73m2 LAB CHEMISTRY METHOD 01/03/2025 10:55 AM [facility] Comment:Calculation based on the Chronic Kidney Disease Epidemiology Collaboration (CKD-EPI) equation refit without adjustment for race. BUN/Creatinine Ratio 17.9 LAB CHEMISTRY METHOD 01/03/2025 10:55 AM [facility] Calcium 8.3(L) 8.5 - 10.5 mg/dL LAB CHEMISTRY METHOD 01/03/2025 10:55 AM [facility] AST (SGOT) 75(H) 10 - 42 unit/L LAB CHEMISTRY METHOD 01/03/2025 10:55 AM [facility] ALT (SGPT) 40 10 - 60 unit/L LAB CHEMISTRY METHOD 01/03/2025 10:55 AM EDT [facility] Alkaline Phosphatase 84 42 - 121 unit/L LAB CHEMISTRY METHOD 01/03/2025 10:55 AM EDT [facility] Total Protein 5.5(L) 6.0 - 8.0 g/dL LAB CHEMISTRY METHOD 01/03/2025 10:55 AM [facility] Albumin 1.9(L) 3.2 - 5.0 g/dL LAB CHEMISTRY METHOD 01/03/2025 10:55 AM T [facility] Total Bilirubin 0.4 0.0 - 1.4 mg/dL LAB CHEMISTRY METHOD 01/03/2025 10:55 AM [facility] Blood Venous blood specimen / Unknown Venipuncture / Unknown 01/03/2025 8:30 AM EDT 01/03/2025 10:08 AM EDT Grady Helm MD LAB BLOOD ORDERABLES Final Result [facility] [address] [place] [address], * (ABNORMAL) Complete blood count (01/03/2025 8:30 AM EDT) WBC 7.5 4.8 - 10.8 K/mcL LAB HEMETOLOGY METHOD 01/03/2025 10:23 AM [facility] RBC 2.90(L) 3.80 - 4.80 M/[facility] LAB HEMETOLOGY METHOD 01/03/2025 10:23 AM [facility] Hemoglobin 7.9(L) 11.5 - 16.0 g/dL LAB HEMETOLOGY METHOD 01/03/2025 10:23 AM [facility] Hematocrit 25.0(L) 35.0 - 47.0 % LAB HEMETOLOGY METHOD [facility] MCV 85.3 79.0 - 98.0 FL LAB HEMETOLOGY METHOD 01/03/2025 10:23 AM EDT [facility] MCH 27.0 27.0 - 32.0 pcg LAB HEMETOLOGY METHOD 01/03/2025 10:23 AM EDT [facility] MCHC 31.6(L) 32.0 - 37.0 g/dL LAB HEMETOLOGY METHOD 01/03/2025 10:23 AM EDT [facility] RDW 17.9(H) 11.0 - 15.0 % LAB HEMETOLOGY METHOD 01/03/2025 10:23 AM EDT [facility] Platelets 544(H) 130 - 400 K/mcL LAB HEMETOLOGY METHOD 01/03/2025 10:23 AM EDT [facility] MPV 9.6 7.0 - 11.0 FL LAB HEMETOLOGY METHOD 01/03/2025 10:23 AM EDT [facility] NRBC 0.0 <1.0 % LAB HEMETOLOGY METHOD 01/03/2025 10:23 AM EDT [facility] NRBC Absolute 0.00 <0.10 K/mcL LAB HEMETOLOGY METHOD 01/03/2025 10:23 AM T [facility] Blood Venous blood specimen / Unknown Venipuncture / Unknown 01/03/2025 8:30 AM EDT 01/03/2025 10:08 AM EDT us Grady Helm MD LAB BLOOD ORDERABLES Final Result [facility] [address] [place] [address], documented in this encounter Visit Diagnoses Diagnosis Cellulitis, unspecified documented in this encounter Care Teams Press Bucker Relationship Specialty Start Date End Date Grady Helm MD [address] [place] [address] PCP - General Internal Medicine 01/03/25 documented as of this encounter
--- OUTSIDE RECORDS SUMMARY | 2025-07-18 18:20 | XMS_ITS | Encounter Summary ---
Author Organization [facility] Address [address] [place] [address] Care Team Providers Care Sheet Metal Technician Name Role Phone Grady Helm MD Primary Care Provider +1- [phone] Encounter Details Date Type Department Care Team (Late st Contact Info) Description 01/23/2025 Lab Requisition [facility] - Main Lab [address] [facility] [place] [address] Grady Helm MD [address] [place] [address] Cellulitis, unspecified Social History Tobacco Use Types [...] unspecified documented in this encounter Care Teams Sheet Metal Technician Relationship Specialty Start Date End Date Grady Helm MD [address] [place] [address] PCP - General Internal Medicine 01/03/25 documented as of this encounter
--- OUTSIDE RECORDS SUMMARY | 2025-07-18 18:20 | XMS_ITS | Encounter Summary ---
Author Organization [facility] Address [address] [place] [address] Care Team Providers Care Greens Keeper Name Role Phone Grady Helm MD Primary Care Provider +1- [phone] Encounter Details Date Type Department Care Team (Late st Contact Info) Description 02/10/2025 Lab Requisition [facility] - Main Lab [address] [facility] [place] [address] Calin Mcgill MD [address] [place] [address] Chronic kidney disease, unspecified; Vitamin D deficiency, [...] LAB CHEMISTRY METHOD 02/10/2025 9:24 AM EDT [facility] Blood Venous blood specimen / Unknown Venipuncture / Unknown 02/10/2025 6:56 AM EDT 02/10/2025 8:10 AM EDT us Calin Mcgill MD LAB BLOOD ORDERABLES Final Resul t Performing Organization Address City/[facility]/ZIP Co de Phone Number [facility] [address] [place] [address], * (ABNORMAL) Magnesium (02/10/2025 6:56 AM EDT) Magnesium 0.9(LL) 1.9 - 2.6 mg/dL LAB CHEMISTRY METHOD 02/10/2025 9:44 AM EDT [facility] Blood Venous blood specimen / Unknown Venipuncture / Unknown 02/10/2025 6:56 AM EDT 02/10/2025 8:10 AM EDT us Calin Mcgill MD LAB BLOOD ORDERABLES Final Resul t [facility] [address] [place] [address], [place] [phone] * Vitamin D 25 hydroxy (02/10/2025 6:56 AM EDT) Vit D, 25-Hydroxy 79.6 30.0 - 80.0 ng/mL LAB CHEMISTRY METHOD 02/10/2025 10:04 AM EDT [facility] Blood Venous blood specimen / Unknown Venipuncture / Unknown 02/10/2025 6:56 AM EDT 02/10/2025 8:10 AM EDT Calin Mcgill MD LAB BLOOD ORDERABLES Final Resul t Performing Organization Address [facility]/ZIP Co de Phone Number [facility] [address] [place] [address], [place] [phone] * Parathyroid hormone intact (02/10/2025 6:56 AM EDT) PTH 82.4 18.5 - 88.0 pcg/mL LAB CHEMISTRY METHOD 02/10/2025 10:04 AM EDT [facility] Blood Venous blood specimen / Unknown Venipuncture / Unknown 02/10/2025 6:56 AM EDT 02/10/2025 8:10 AM EDT us Calin Mcgill MD LAB BLOOD ORDERABLES Final Resul t Performing Organization Address [facility]/ZIP Co de Phone Number [facility] [address] [place] [address], [place] [phone] documented in this encounter Visit Diagnoses Diagnosis Chronic kidney disease, unspecified Vitamin D deficiency, unspecified documented in this encounter Care Teams Greens Keeper Relationship Specialty Start Date End Date Grady Helm MD [address] [place] [address] PCP - General Internal Medicine 01/03/25 documented as of this encounter
--- OUTSIDE RECORDS SUMMARY | 2025-07-18 18:20 | XMS_ITS | Encounter Summary ---
Author Organization [facility] Address [address] [place] [address] Care Team Providers Care Supervisor Slashing Department Name Role Phone Grady Helm MD Primary Care Provider +1- [phone] Encounter Details Date Type Department Care Team (Late st Contact Info) Description 01/17/[address] [facility] - Main Lab [address] [facility] [place] [address] Grady Helm MD [address] [place] [address] Cellulitis, unspecified Social History Tobacco Use Types [...] mmol/L LAB CHEMISTRY METHOD 01/18/2025 1:31 PM [facility] Potassium 3.6 3.5 - 5.5 mmol/L LAB CHEMISTRY METHOD 01/18/2025 1:31 PM [facility] Chloride 101 96 - 110 mmol/L LAB CHEMISTRY METHOD 01/18/2025 1:31 PM [facility] CO2 25 21 - 32 mmol/L LAB CHEMISTRY METHOD 01/18/2025 1:31 PM [facility] Anion Gap 14(H) 3 - 11 LAB CHEMISTRY METHOD 01/18/2025 1:31 PM [facility] Glucose 63(L) 70 - 100 mg/dL LAB CHEMISTRY METHOD 01/18/2025 1:31 PM [facility] BUN 28(H) 5 - 25 mg/dL LAB CHEMISTRY METHOD 01/18/2025 1:31 PM [facility] Creatinine 1.89(H) 0.50 - 1.10 mg/dL LAB CHEMISTRY METHOD 01/18/2025 1:31 PM [facility] eGFR 28(L) >=60 mL/min/1. 73m2 LAB CHEMISTRY METHOD 01/18/2025 1:31 PM [facility] Comment:Calculation based on the Chronic Kidney Disease Epidemiology Collaboration (CKD-EPI) equation refit without adjustment for race. BUN/Creatinine Ratio 14.8 LAB CHEMISTRY METHOD 01/18/2025 1:31 PM [facility] Calcium 7.7(L) 8.5 - 10.5 mg/dL LAB CHEMISTRY METHOD 01/18/2025 1:31 PM [facility] Blood Venous blood specimen / Unknown Venipuncture / Unknown 01/18/2025 8:01 AM EDT 01/18/2025 11:05 AM EDT us Grady B Jagadeesan MD LAB BLOOD ORDERABLES Final Result [facility] [address] [place] [address], * (ABNORMAL) Complete blood count (01/18/2025 8:01 AM EDT) WBC 2.3(L) 4.8 - 10.8 K/mcL LAB HEMETOLOGY METHOD 01/18/2025 12:10 PM EDT [facility] RBC 2.90(L) 3.80 - 4.80 M/mcL LAB HEMETOLOGY METHOD 01/18/2025 12:10 PM EDT [facility] Hemoglobin 7.7(L) 11.5 - 16.0 g/dL LAB HEMETOLOGY METHOD 01/18/2025 12:10 PM EDT [facility] Hematocrit 24.5(L) 35.0 - 47.0 % LAB HEMETOLOGY METHOD 01/18/2025 12:10 PM EDT [facility] MCV 84.2 79.0 - 98.0 FL LAB HEMETOLOGY METHOD [facility] MCH 26.5(L) 27.0 - 32.0 pcg LAB HEMETOLOGY METHOD 01/18/2025 12:10 PM EDT [facility] MCHC 31.4(L) 32.0 - 37.0 g/dL LAB HEMETOLOGY METHOD 01/18/2025 12:10 PM EDT [facility] RDW 19.1(H) 11.0 - 15.0 % LAB HEMETOLOGY METHOD 01/18/2025 12:10 PM T [facility] Platelets 107(L) 130 - 400 K/mcL LAB HEMETOLOGY METHOD 01/18/2025 12:10 PM EDT [facility] MPV 11.4(H) 7.0 - 11.0 FL LAB HEMETOLOGY METHOD 01/18/2025 12:10 PM EDT [facility] NRBC 0.0 <1.0 % LAB HEMETOLOGY METHOD 01/18/2025 12:10 PM EDT [facility] NRBC Absolute 0.00 <0.10 K/mcL LAB HEMETOLOGY METHOD 01/18/2025 12:10 PM EDT [facility] Blood Venous blood specimen / Unknown Venipuncture / Unknown 01/18/2025 8:01 AM EDT 01/18/2025 11:05 AM EDT us Grady Helm MD LAB BLOOD ORDERABLES Final Result [facility] [address] [place] [address], documented in this encounter Visit Diagnoses Diagnosis Cellulitis, unspecified documented in this encounter Care Teams Supervisor Slashing Department Relationship Specialty Start Date End Date Grady Helm MD [address] [place] [phone] PCP - General Internal Medicine 01/03/25 documented as of this encounter
--- OUTSIDE RECORDS SUMMARY | 2025-07-18 18:21 | XMS_ITS | Clinical Summary ---
Author Organization [address] Address [address] [place] [phone] Phone Care Team Providers Care Stock Tracer Name Role Phone Grady Helm MD Primary Care Provider +1- [phone] Medications traZODone (DESYREL) 50 mg tablet Take [...] back pain DX:Low back pain Neuromuscular disorder ([facility] V24, [facility] V28) DX:Neuromuscular disorder ([facility]) Scoliosis DX:Scoliosis COPD (chronic obstructive pu lmonary disease) ([facility] V24, [facility] V28) DX:COPD (chronic o bstructive [...] Chronic kidney disease, unspecified Heart failure, unspecified ([facility] V24, [facility] V28) TEMITOPE SCREENING DIGITAL Routine [...] LAB CHEMISTRY METHOD 02/08/2025 9:25 AM EDT [facility] Comment:Calculation based on the Chronic Kidney Disease Epidemiology Collaboration (CKD-EPI) equation refit without adjustment for race. BUN/Creatinine Ratio 15.7 LAB CHEMISTRY METHOD 02/08/2025 9:25 AM EDT [facility] Calcium 5.7(LL) 8.5 - 10.5 mg/dL LAB CHEMISTRY METHOD 02/08/2025 9:25 AM EDT [facility] Blood Venous blood specimen / Unknown Venipuncture / Unknown 02/08/2025 5:10 AM EDT 02/08/2025 8:12 AM EDT us Calin Mcgill MD LAB BLOOD ORDERABLES Final Resul t [facility] [address] [place] [address], [place] [phone] * (ABNORMAL) Lipid panel with reflex to direct LDL (02/07/2025 5:22 AM EDT) Cholesterol 87 0 - 200 mg/dL LAB CHEMISTRY METHOD 02/07/2025 2:04 PM EDT [facility] Triglycerides 60 0 - 150 mg/dL LAB CHEMISTRY METHOD 02/07[facility]2025 2[facility] HDL 28(L) >=40 mg/dL LAB CHEMISTRY METHOD 02/07/2025 2:04 PM EDT [facility] LDL Calculated 47 0 - 100 mg/dL LAB CHEMISTRY METHOD 02/07/2025 2:04 PM EDT [facility] VLDL Cholesterol Mo 12 mg/dL LAB CHEMISTRY METHOD 02/07/2025 2:04 PM EDT [facility] Non HDL Chol. (LDL+VLDL) 59 <145 mg/dL LAB CHEMISTRY METHOD 02/07/2025 2:04 PM EDT [facility] Chol/HDL Ratio 3.1 0.0 - 4.4 LAB CHEMISTRY METHOD 02/07/2025 2:04 PM EDT [facility] Blood Venous blood specimen / Unknown Venipuncture / Unknown 02/07/2025 5:22 AM EDT 02/07/2025 12:23 PM EDT us Calin Mcgill MD LAB BLOOD ORDERABLES Final Resul t [facility] [address] [place] [address], * TEMITOPE SCREENING DIGITAL (10/14/2018 5:09 PM EST) Anatomical Region Laterality Modality Mammography 10/14/2018 3:43 PM EST Narrative 10/14/2018 5:09 PM EST [facility] Diagnostic Imaging Department [address] [place] [address] Patient: RACHEL VIDAL/Age/Sex: 1950 - 68 - F Unit#: [id number] Location/Status: SPDIMAM/REG CLI Mnemonic/Ordering Site: DIGSC/SPMAM Ordering [...] MLO projection. 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 TISSUE DENSITY: b. There [...] Routine screening mammogram BILATERAL in 1 year. [address]24, [address]509 3342F, 7025F Dictating Physician: SANDY MARLEY MD Electronically Signed by: SANDY MARLEY MD Dic Date/Time: 10/14/181708 Sign date/Time: 10/14/181708 Procedure Note Sandy Marley MD - 08/14/2022 [facility] Diagnostic Imaging Department [address] [place] [address] Patient: RACHEL VIDAL./Age/Sex: 1950 - 68 - F Unit#: [id number] Location/Status: SPDIMAM/REG CLI Mnemonic/Ordering Site: [facility] Ordering Physician: DAI HASKINS MD [facility] Screening Digital - 10/14/18 - 1603 EXAM: [facility] Screening Digital EXAM DATE AND TIME: 10/14/2018 4:03 PM HISTORY: Screening. Sister had breast carcinoma. COMPARISON: 08/26/14, 10/26/11, 10/12/09 TECHNIQUE: CC and MLO views of both breasts were obtained using fullfield digital mammography. Bilateral digital breast tomosynthesis was performedin the MLO projection. Computer aided detection with the [employer].2-Hibernateras employed. TISSUE DENSITY: b. There are scattered [...] Routine screening mammogram BILATERAL in 1 year. 78665, 59232 3342F, 7064F Dictating Physician: SANDY MARLEY MD Electronically Signed by: SANDY MARLEY MD Dic Date/Time: 10/14/181708 Sign date/Time: 10/14/181708 Dai Haskins DO IMG BI PROCEDURES Final Result from Last 3 Months or Most Recently Relevant to Health Maintenance Insurance MEDICARE [place] [id number] Care Teams Stock Tracer Relationship Specialty Start Date End Date Grady Helm MD [address] [place] [address] PCP - General Internal Medicine 01/03/25
== END 2025-07-18 13:33 | disposition home or self-care (01) ==
LOC: HO.HVNA 13:32
PROVIDERS: Visit Provider Internal Medicine
DX: I13.0 Hypertensive heart and chronic kidney disease with heart failure and stage 1 through stage 4 chronic kidney disease, or unspecified chronic kidney disease (principal); I50.32 Chronic diastolic (congestive) heart failure; N18.31 Chronic kidney disease, stage 3a
CPT/HCPCS: 36415; 80048